=== PATIENT | male | born 1950 | race Caucasian/White ===

== ENCOUNTER 2016-08-24 21:47 | Emergency (ER) | payer OTHER ==
[~2016-08-24 21:47] MED LIST: ACYCLOVIR200 M1 PO; ACYCLOVIR200 MG PO; ALEVE220 MG PO; AMLODIPINE BESY1 CA5 PO; ANUSOL-HC25 M1 RC; ATIVAN 0.5MG T0.5 MG PO; ATIVAN1 MG PO; CARISOPRODOL350 MG PO; CARVEDILOL12.5 M1 PO; CYTOXAN PO; Compazine PO; DECADRON2 MG PO; GENTAMICIN SULF30 GM TOP; LOPRESSOR50 MG PO; METOPROLOL SUC100 MG PO; NEPHRO-VITE RX1 EACH PO; NEPHROCAPS1 TAB PO; NORVASC 10MG10 MG PO; NORVASC 5MG TAB5 MG PO; OXYCODONE5 MG PO; OXYCONTIN20 M1 PO; PROCRIT20000 U/ML IV; RENVELA800 M1 PO; RENVELA800 MG PO; TRAMADOL HCL50 MG PO; VELCADE3.5 MG SC; ZETIA10 MG PO; ZITHROMAX 500M500 MG PO; Zetia PO
--- NOTE | 2016-08-24 22:10 | ED NECK/BACK PAIN COMPLAINT ---
History of Present Illness General Chief Complaint: Lower Extremity Problems Stated Complaint: PT IS HAVING REALLY BAD BACK PAIN Source: patient, family, old records Exam Limitations: no limitations Vital Signs & Intake/Output Vital Signs & Intake/Output Vital Signs Date Time Temp Pulse Resp B/P Pulse O2 O2 Flow FiO2 Ox Delivery Rate 08/24 2154 98.7 104 22 140/97 97 Room Air ED Intake and Output 08/25 0000 08/24 1200 Intake Total 0 Output Total Balance 0 Intake, Oral 0 Patient 155 lb Weight Allergies Coded Allergies: NO KNOWN ALLERGIES (06/29/16) Triage Note: PER PT SEVERE BACK PAIN SINCE 4 PM. PT HAS MULTIPLE MYELOMA AND COULD BE BECAUSE OF THAT. Triage Nurses Notes Reviewed? yes HPI: This is a 65-year-old male with history of multiple myeloma who presents to the ER from home with his for chief complaint of severe low back pain radiating to his left flank. History of previous back pain from multiple myeloma. Today he took his OxyContin 20 mg without any relief. No fever or chills. No nausea vomiting or diarrhea. Patient is on peritoneal dialysis for the last 2 years and does not make any urine. He denies any recent trauma. 4 weeks ago he hit his right knee. At that time he had x-rays which were negative. No weakness or numbness in the lower extremities. (GALI KRISHNAMURTHY,EMMA) Reconcile Medications Acyclovir 200 MG CAPSULE 1 CAP PO DAILY SHINGLE PREVENTION (Reported) Carvedilol 12.5 MG TABLET 1 TAB PO DAILY BP (Reported) Cyclobenzaprine HCl 10 MG TABLET 1 TAB PO TID PRN MUSCLE SPASM Oxycodone HCl (Oxycontin) 20 MG TAB.ER.12H 1 TAB PO BID PAIN (Reported) Oxycodone HCl/Acetaminophen (Percocet 10-325 MG Tablet) 10 MG-325 MG TABLET 1 TAB PO 4 TIMES/DAY PRN pain twenty... [id number] Sevelamer Carbonate (Renvela) 800 MG TABLET 4 TAB PO WM KIDNEYS (Reported) (CODY KRISHNAMURTHY,FIONA Medina) Past History Travel History Traveled to [place] past 21 day No Medical History Any Pertinent Medical History? see below for history Neurological: NONE EENT: NONE Cardiovascular: hypertension Respiratory: NONE Gastrointestinal: APPENDECTOMY Renal: END-STAGE RENAL DISEASE ON PERITONEAL Musculoskeletal: chronic back pain, osteoporosis Psychiatric: NONE Endocrine: NONE Blood Disorders: MULTIPLE MYELOMA Cancer(s): MULTIPLE MYELOMA History of MRSA: No History of VRE: No History of CDIFF: No Surgical History Surgical History: non-contributory Psychosocial History Who do you live with Family Services at Home None What is your primary language Gabonese Tobacco Use: Never used Family History Family History, If Any: Relation not specified for: FH: colon cancer (GALI KRISHNAMURTHY,EMMA) Family History Hx Contributory? No (CODY KRISHNAMURTHY,FIONA Medina) Review of Systems Review of Systems Constitutional: Reports: no symptoms, see HPI, chills, diaphoresis, fever, malaise, weakness, unexplained weight loss. Eyes: Reports: no symptoms. Ears, Nose, Throat, Mouth: Reports: no symptoms. Respiratory: Reports: no symptoms. Cardiovascular: Reports: no symptoms. Gastrointestinal/Abdominal: Reports: no symptoms. Musculoskeletal: Reports: no symptoms. Skin: Reports: no symptoms. Neurological/Psychological: Reports: no symptoms. All Other Systems: Reviewed and Negative (CODY KRISHNAMURTHY,FIONA Medina) Physical Exam Physical Exam General Appearance: well developed/nourished, mild distress Head: atraumatic Eyes: Bilateral: PERRL, EOMI. Ears, Nose, Throat, Mouth: hearing grossly normal Neck: normal inspection, supple, full range of motion Respiratory: normal breath sounds Cardiovascular: regular rate/rhythm Gastrointestinal: normal bowel sounds, soft, non-tender, no organomegaly Back: normal inspection, normal range of motion, no vertebral tenderness Extremities: non-tender, normal range of motion Comments: normal strength and sensation in lower extremities. (CODY KRISHNAMURTHY,FIONA Medina) Progress Plan of Care: Orders Procedure Date/time Status COMPREHENSIVE METABOLIC PANEL 08/24 2220 Complete CBC WITHOUT DIFFERENTIAL 08/24 2220 Complete Laboratory Tests 08/24/16 2240: Anion Gap 13, Estimated GFR 4 L, BUN/Creatinine Ratio 4.1 L, Glucose 88, Calcium 8.8, Total Bilirubin 0.5, AST 11 L, ALT 22, Alkaline Phosphatase 76, Total Protein 7.2, Albumin 3.4 L, Globulin 3.8, Albumin/Globulin Ratio 0.9 L, CBC w Diff NO MAN DIFF REQ, RBC 2.54 L, MCV 98.4 H, MCH 32.5 H, RDW 16.8 H, MPV 7.4, Gran % 73.7, Lymphocytes % 16.0 L, Monocytes % 9.9 H, Eosinophils % 0.2, Basophils % 0.2, Absolute Granulocytes 3.3, Absolute Lymphocytes 0.7 L, Absolute Monocytes 0.4, Absolute Eosinophils 0, Absolute Basophils 0, PUBS MCHC 33.0 Hand-Off Endorsed To: SILVA LEONARD MD Endorsed Time: 2309 Pending: labs, other (REEVALUATION) (EMMA TALBERT MD) Differential Diagnosis: back pain, multiple myeloma vs other. (CODY KRISHNAMURTHY,FIONA Medina) Departure Departure Condition: Stable Clinical Impression Primary Impression: Back pain Secondary Impressions: Flank pain Referrals: Eugene ALVARADO MD (PCP/Family) Departure Forms: Customer Survey General Discharge Information PA/DIVER PUMPER Co-Sign Statement Statement: ED Attending supervision documentation- [] I saw and evaluated the patient. I have also reviewed all the pertinent lab results and diagnostic results. I agree with the findings and the plan of care as documented in the PA's/DIVER PUMPER's documentation. [X] have reviewed the ED Record and agree with the PA's/DIVER PUMPER's documentation. [] Additions or exceptions (if any) to the PAs/DIVER PUMPER's note and plan are summarized below: [] (GALI KRISHNAMURTHY,EMMA) Departure Disposition: HOME OR SELF CARE Prescriptions: Current Visit Scripts Oxycodone HCl/Acetaminophen (Percocet 10-325 MG Tablet) 1 TAB PO 4 TIMES/DAY PRN pain #20 TAB twenty... [id number] Cyclobenzaprine HCl 1 TAB PO TID PRN MUSCLE SPASM #30 TAB Ref 1 Comments 08/25/16, 0:35AM.... Pt is pain free. Benign exam without tenderness to my evaluation. He would like to go home and follow up with dr. auguste. We discussed this at great length. I gave rx for percocet. He will return if his symptoms recur. (CODY KRISHNAMURTHY,FIONA Medina)
[2016-08-24 22:53] LABS: ABSOLUTE BASOPHIL COUNT 0 /CUMM (0.0-0.2); ABSOLUTE EOSINOPHIL COUNT 0 /CUMM (0.0-0.7); ABSOLUTE GRANULOCYTE CT 3.3 /CUMM (1.4-6.5); ABSOLUTE LYMPH COUNT 0.7 /CUMM (1.2-3.4); ABSOLUTE MONOCYTE COUNT 0.4 /CUMM (0.10-0.60); BASOPHIL % 0.2 % (0.0-2.0); EOSINOPHIL % 0.2 % (0-5); GRANULOCYTE % 73.7 % (42.2-75.2); MEAN CORPUSCULAR HGB 32.5 PG (27.0-31.0); MEAN CORPUSCULAR VOLUME 98.4 FL (80.0-94.0); MEAN PLATELET VOLUME 7.4 FL (7.4-10.4); PLATELET COUNT 177 /CUMM (130-400); RBC DISTRIBUTION WIDTH 16.8 % (11.5-14.5); RED BLOOD CELL CT 2.54 /CUMM (4.70-6.10); WHITE BLOOD CELL COUNT 4.5 /CUMM (4.8-10.8)
[2016-08-25] MEDS ORDERED: PERCOCET 10-321 EACH PO (00:25)
[2016-08-25] MEDS ORDERED: CYCLOBENZAPRINE10 M1 PO (00:25)
[2016-08-25 00:47] VITALS: BP 140/74
== END 2016-08-25 00:56 ==
LOC: ERH 21:47
PROVIDERS: Emergency Medicine
DX: M54.5 Low back pain (principal); R10.9 Unspecified abdominal pain
CPT/HCPCS: 96374; 96375; J2405; J3360

== ENCOUNTER 2016-09-01 15:49 | Inpatient (IN) | payer OTHER ==
[~2016-09-01] VITALS: Ht 172.7 cm; Wt 70.3 kg
[~2016-09-01 15:49] MED LIST changes: +CYCLOBENZAPRINE10 M1 PO; +PERCOCET 10-321 EACH PO
--- NOTE | 2016-09-01 15:54 | NUR ---
PT SENT IN BY [facility] FOR IRREGULAR HEART BEAT. PT WAS THERE FOR MONTHLY VISIT AND THEY LISTENED TO HIS HEART WITH A STETHASCOPE. PT DENIES CHEST PAIN OR SOB. PT STATES HE DOES HAVE CHRONIC BACK PAIN.
--- NOTE | 2016-09-01 15:57 | NUR ---
PT BROUGHT BACK TO ROOM AFTER EKG
--- NOTE | 2016-09-01 16:08 | ED GENERAL ADULT ---
History of Present Illness General Chief Complaint: General Adult Stated Complaint: IRREGULAR HEART BEAT Source: patient, Exam Limitations: no limitations Allergies Coded Allergies: NO KNOWN ALLERGIES (06/29/16) Reconcile Medications Acyclovir 200 MG CAPSULE 1 CAP PO DAILY SHINGLE PREVENTION (Reported) Carvedilol 12.5 MG TABLET 1 TAB PO DAILY BP (Reported) Lactulose 10 GRAM/15 ML SOLUTION 30 ML PO PRN CONSTIPATION (Reported) Oxycodone HCl 10 MG TABLET 1-2 TAB PO Q4-6H PRN PAIN (Reported) Sevelamer Carbonate (Renvela) 800 MG TABLET 4 TAB PO WM KIDNEYS (Reported) Vit B Cmplx 3/FA/Vit C/Biotin (Nephro-Nola Rx Tablet) 1 MG-60 MG-300 MCG TABLET 1 TAB PO DAILY SUPPLEMENT (Reported) Triage Note: PT SENT IN BY [facility] FOR IRREGULAR HEART BEAT. PT WAS THERE FOR MONTHLY VISIT AND THEY LISTENED TO HIS HEART WITH A STETHASCOPE. PT DENIES CHEST PAIN OR SOB. PT STATES HE DOES HAVE CHRONIC BACK PAIN. Triage Nurses Notes Reviewed? yes HPI: 65 yo M PMH Multiple Myeloma, ESRD (on peritoneal dialysis) presenting with tachycardia. Patient went to Dr. Chaudhry's (director of procurement) office this afternoon for follow-up, found to be tachycardic with rates 140-150s, patient otherwise asymptomatic, sent to ED for evaluation. ROS (+) for mild dyspnea on exertion for the past several days, denies fevers, chest pain, palpitations, LE swelling/ pain, dizziness or neurologic Sx. No Hx of tachyarrhythmias. (KIMBERLY KRISHNAMURTHY,SURINDER) Vital Signs & Intake/Output Vital Signs & Intake/Output Vital Signs Date Time Temp Pulse Resp B/P Pulse O2 O2 Flow FiO2 Ox Delivery Rate 09/01 1802 104 16 101/76 95 Room Air 09/01 1731 98 104/70 09/01 1629 Room Air 09/01 1555 98.3 72 16 103/64 94 Past History Travel History Traveled to [place] past 21 day No Medical History Any Pertinent Medical History? see below for history Neurological: NONE EENT: NONE Cardiovascular: hypertension Respiratory: NONE Gastrointestinal: APPENDECTOMY Renal: END-STAGE RENAL DISEASE ON PERITONEAL Musculoskeletal: chronic back pain, osteoporosis Psychiatric: NONE Endocrine: NONE Blood Disorders: MULTIPLE MYELOMA Cancer(s): MULTIPLE MYELOMA History of MRSA: No History of VRE: No History of CDIFF: No Surgical History Surgical History: non-contributory Psychosocial History Who do you live with Family Services at Home None What is your primary language Maori Tobacco Use: Never used ETOH Use: denies use Illicit Drug Use: denies illicit drug use Family History Family History, If Any: Relation not specified for: FH: colon cancer Hx Contributory? No (SURINDER HARRIS MD) Review of Systems Review of Systems Constitutional: Reports: no symptoms. EENTM: Reports: no symptoms. Respiratory: Reports: short of breath. Cardiovascular: Reports: no symptoms. GI: Reports: no symptoms. Genitourinary: Reports: no symptoms. Musculoskeletal: Reports: no symptoms. Skin: Reports: no symptoms. Neurological/Psychological: Reports: no symptoms. Hematologic/Endocrine: Reports: no symptoms. Immunologic/Allergic: Reports: no symptoms. All Other Systems: Reviewed and Negative (SURINDER HARRIS MD) Physical Exam Physical Exam General Appearance: well developed/nourished, no apparent distress, alert, awake Head: atraumatic Eyes: Bilateral: normal appearance. Ears, Nose, Throat: normal ENT inspection Neck: supple, full range of motion Respiratory: normal breath sounds Cardiovascular: edema, normal peripheral pulses, tachycardia Peripheral Pulses: 2+ radial (R), 2+ radial (L), 2+ dorsalis pedis (R), 2+ dorsalis pedis (L) Gastrointestinal: soft, non-tender, PD catheter in mid-upper abdomen Back: normal inspection Extremities: normal inspection, normal capillary refill, normal range of motion Neurologic/Psych: awake, alert, oriented x 3 Skin: intact Comments: Pulmonary: Clear to ascultation with good air movement bilaterally Cardiovascular: Tachycardic, regular, 2+ distal pulses Abdomen: Soft, non-TTP throughout, PD catheter in epigastrum, insertion site clean, dry, non-erythematous Extremities: No swelling, edema, TTP Core Measures ACS in differential dx? No CVA/TIA Diagnosis: No Severe Sepsis Present: No Septic Shock Present: No (SURINDER HARRIS MD) Progress Differential Diagnoses I considered the following diagnoses in my evaluation of the patient: [Atrial Fivrillario] Initial ED EKG: Narrow complex tachycardia (SURINDER HARRIS MD) Plan of Care: Orders Procedure Date/time Status Admit to inpatient 09/01 1941 Active Patient Data 09/01 194 Active TROPONIN LEVEL 09/01 162 Complete PARTIAL THROMBOPLASTIN TIME 09/01 162 Complete PROTHROMBIN TIME 09/01 1620 Complete MAGNESIUM 09/01 162 Complete COMPREHENSIVE METABOLIC PANEL 09/01 162 Complete CBC WITHOUT DIFFERENTIAL 09/01 162 Complete EKG 09/01 161 Active EKG 09/01 1551 Active Laboratory Tests 09/01/16 1621: Anion Gap 15, Estimated GFR 4 L, BUN/Creatinine Ratio 3.8 L, Glucose 86, Calcium 9.1, Magnesium 1.3 L, Total Bilirubin 0.6, AST 18, ALT 23, Alkaline Phosphatase 70, Troponin I 0.07, Total Protein 7.3, Albumin 3.5, Globulin 3.8, Albumin/Globulin Ratio 0.9 L, PT 11.8, INR 1.13, APTT 27, CBC w Diff NO MAN DIFF REQ, RBC 2.87 L, MCV 98.4 H, MCH 32.8 H, RDW 16.9 H, MPV 7.3 L, Gran % 81.1 H, Lymphocytes % 9.8 L, Monocytes % 8.7, Eosinophils % 0.1, Basophils % 0.3, Absolute Granulocytes 4.8, Absolute Lymphocytes 0.6 L, Absolute Monocytes 0.5, Absolute Eosinophils 0, Absolute Basophils 0, PUBS MCHC 33.4 Physician MDM: 65 yo M PMH MM, ESRD presenting with tachyarrhymia. HR 100s during exam, regular, SBP low 100s, asymptomatic, remainder of exam as above. DDx: A-Fib with RVR. Atrial flutter, SVT. Initial ECG wtih narrow complex tachycardia, appears regular, no visible p-waves. Tachycardia broke prior to MD stephenson in ED. Troponin 0.07. CBC with anemia, expected given MM. BMP with hypokalemia to 3.4, low Mg at 1.3, expected Cr elevation at 12.0. Spoke with Dr. Chaudhry (nephrology), discussed case, OK to replete K+ and Mg+ despite ESRD. Mg IV and K PO given. Patient had recurrent tachyarrhythmia in ED, irregular on monitor, rates 120-130s, spontaneous conversion without treatment. Spoke with seasonal clerk Cardiology for , will evaluate patient for rate control medications during admission. Admit to hospitalist for monitoring and further evaluation. The plan of care was discussed with the patient and his who expressed agreement and understanding. D/W Dr. Waters. (SURINDER HARRIS MD) Departure Departure Disposition: STILL A PATIENT Condition: Stable Clinical Impression Primary Impression: Tachyarrhythmia Referrals: Eugene ALVARADO MD (PCP/Family) Departure Forms: Customer Survey General Discharge Information Admission Note Spoke With: YULISA DELGADILLO MD Documentation of Exam: Documentation of any treatments & extenuating circumstances including Concerns Regarding Discharge (functional status, medication knowledge or non-compliance, living conditions, etc.) that warrant an admission rather than observation: [ High probability of re-conversion to life-threatening tachydysrhythmia potentially leading to syncope, hypotension, sudden , cardiovascular collapse, hypokalemia, hypomagnesemia] the patient is unable to be discharged home due to inability to find safe and effective antiarrhythmic regimen due to his end-stage renal disease and borderline hypotensive blood pressures, the patient will be discharged without effective antiarrhythmic regimen he has a likelihood of reconverted to a tachydysrhythmia that could lead to hypotension and the patient will likely return in worse clinical condition without appropriate antiarrhythmic management. In addition the exertion of compliance with outpatient treatment could potentially provoke a tachydysrhythmia causing the patient to faint, experienced chest pain and hypotension. I now feel the patient requires hospitalization with continuous cardiac monitoring given his high risk of dysrhythmia. In addition cardiology and nephrology consultations should be obtained. The patient's treatment will be complicated by the fact that most rate controlling cardiac medications are cleared renally placing him at very high risk of medication side effects and overdose. Given this I feel the patient is a poor candidate for outpatient management at this time. I feel he will require a multiple day hospitalization. (SURINDER HARRIS MD) Resident Co-Sign Statement Statement: ED Attending supervision documentation- [x] I saw and evaluated the patient. I have also reviewed all the pertinent lab results and diagnostic results. I agree with the findings and the plan of care as documented in the Resident's documentation. [] I have reviewed the ED Record and agree with the Resident's documentation. [] Additions or exceptions (if any) to the Resident's note and plan are summarized below: [] (IAIN KRISHNAMURTHY,CELESTINO D) Critical Care Note Critical Care Note Critical Care Time: non-applicable (KIMBERLY KRISHNAMURTHY,SURINDER)
[2016-09-01 16:29] LABS: ABSOLUTE BASOPHIL COUNT 0 /CUMM (0.0-0.2); ABSOLUTE EOSINOPHIL COUNT 0 /CUMM (0.0-0.7); ABSOLUTE GRANULOCYTE CT 4.8 /CUMM (1.4-6.5); ABSOLUTE LYMPH COUNT 0.6 /CUMM (1.2-3.4); ABSOLUTE MONOCYTE COUNT 0.5 /CUMM (0.10-0.60); BASOPHIL % 0.3 % (0.0-2.0); EOSINOPHIL % 0.1 % (0-5); GRANULOCYTE % 81.1 % (42.2-75.2); HEMATOCRIT 28.2 % (42-52); MEAN CORPUSCULAR HGB 32.8 PG (27.0-31.0); MEAN CORPUSCULAR HGB CONC 33.4 G/DL (33.0-37.0); MEAN CORPUSCULAR VOLUME 98.4 FL (80.0-94.0); MEAN PLATELET VOLUME 7.3 FL (7.4-10.4); PLATELET COUNT 160 /CUMM (130-400); RBC DISTRIBUTION WIDTH 16.9 % (11.5-14.5); RED BLOOD CELL CT 2.87 /CUMM (4.70-6.10); WHITE BLOOD CELL COUNT 5.9 /CUMM (4.8-10.8)
[2016-09-01 16:36] LABS: PT 11.8 SEC (9.4-12.5); PTT 27 SEC (25-37)
--- NOTE | 2016-09-01 16:41 | NUR ---
UPON ARRIVAL TO 19, HR 130'S-150'S AFIB ON BUILDING DISMANTLER. APPROXIMATELY 5 MINUTES AFTER ARRIVAL TO ROOM HR DECREASED TO 100'S, SINUS RHYTHM
--- NOTE | 2016-09-01 17:03 | NUR ---
PT IN RAPID AFIB HR 150'S-160'S. RESIDENT NOTIFIED
[2016-09-01] MEDS ORDERED: LACTULOSE10 GM/153 PO (19:49)
[2016-09-01] MEDS ORDERED: OXYCODONE HCL10 M2 PO (19:49)
[2016-09-01] MEDS ORDERED: NEPHRO-VITE RX1 EACH PO (19:54)
[2016-09-01] MEDS ORDERED: PROCHLORPERAZIN10 MG PO (20:28)
[2016-09-01] MEDS ORDERED: OXYCODONE HCL E20 MG PO (20:29)
[2016-09-01] MEDS ORDERED: GENTAMICIN SULF30 GM TOP (20:30)
--- NOTE | 2016-09-01 20:39 | NUR ---
BED ASSIGNMENT [id number]
--- NOTE | 2016-09-01 21:06 | NUR ---
REPORT GIVEN, WILL CALL WHEN ROOM IS CLEAN
--- NOTE | 2016-09-01 21:14 | History & Physical ---
MERLINE KRISHNAMURTHY,[facility] 09/01/162113: General Information and HPI MD Statement: I have seen and personally examined JUAN A DU and documented this H&P. The patient is a 65 year old M who presented with a patient stated chief complaint of [I was sent in by my kidney doctor for an elevated heart rate]. Source of Information: patient, family, old records Exam Limitations: no limitations History of Present Illness: This is a 65-year-old gentleman with a past history significant for multiple myeloma diagnosed 2 years ago, currently undergoing oral chemotherapy every other week, chronic kidney disease on peritoneal dialysis for the last couple years likely secondary to multiple myeloma, hypertension, hyperlipidemia presented to the emergency room after being seen at [facility] where he was noted to have an elevated heart rate and was subsequently sent to the emergency room. Patient states that he goes to [facility] once a week for blood work and today while doing their initial evaluation and vital signs they noticed that his heart rate was in the 140s, they subsequently sent him to the emergency room for evaluation. However patient denies any chest pain, shortness of breath, nausea, vomiting, diarrhea, fevers, chills, recent illnesses or sick contacts. He states that if it were not for the dialysis nurse requesting him to come to the emergency room, he would not have been here and feels good otherwise. While in the emergency room he was tachycardic into the 150s, it self resolved, currently his heart rate is stable in the mid 90s. Patient did complain of some upper back pain which has been going on for the past few weeks. States that he could not sit still through the course of the MRI and hence the imaging quality for the MRI that he did receive was inconclusive to show any acute fractures or metastases. He does admit to recent hemorrhoid surgery in June with Dr. Sow. Allergies/Medications Allergies: Coded Allergies: NO KNOWN ALLERGIES (06/29/16) Home Med list Acyclovir 200 MG CAPSULE 1 CAP PO DAILY SHINGLE PREVENTION (Reported) Carvedilol 12.5 MG TABLET 1 TAB PO DAILY BP (Reported) Gentamicin Sulfate 0.1 % CREAM..G. 1 MARIO TOP DAILY PERITONEAL SITE (Reported) Lactulose 10 GRAM/15 ML SOLUTION 30 ML PO PRN CONSTIPATION (Reported) Oxycodone HCl 10 MG TABLET 1-2 TAB PO Q4-6H PRN PAIN (Reported) Oxycodone HCl (Oxycodone HCl ER) 20 MG TAB.ER.12H 1 TAB PO BID PAIN (Reported ) Prochlorperazine Maleate 10 MG TABLET 1 TAB PO Q6 PRN N/V (Reported) Sevelamer Carbonate (Renvela) 800 MG TABLET 4 TAB PO WM KIDNEYS (Reported) Vit B Cmplx 3/FA/Vit C/Biotin (Nephro-Nola Rx Tablet) 1 MG-60 MG-300 MCG TABLET 1 TAB PO DAILY SUPPLEMENT (Reported) Past History Travel History Traveled to [place] past 21 day No Medical History Neurological: NONE EENT: NONE Cardiovascular: hypertension Respiratory: NONE Gastrointestinal: APPENDECTOMY Renal: END-STAGE RENAL DISEASE ON PERITONEAL Musculoskeletal: chronic back pain, osteoporosis Psychiatric: NONE Endocrine: NONE Blood Disorders: MULTIPLE MYELOMA Cancer(s): MULTIPLE MYELOMA History of MRSA: No History of VRE: No History of CDIFF: No Surgical History Surgical History: non-contributory ECHO Results (as available) Date of last Echo 10/29/14 EF% 65 Past Family/Social History Family History Relations & Conditions if any Relation not specified for: FH: colon cancer Psychosocial History Services at Home: None ETOH Use: denies use Illicit Drug Use: denies illicit drug use Review of Systems Review of Systems Constitutional: Reports: see HPI. Exam & Diagnostic Data Last 24 Hrs of Vital Signs/I&O Vital Signs Date Time Temp Pulse Resp B/P Pulse O2 O2 Flow FiO2 Ox Delivery Rate 09/01 1802 104 16 101/76 95 Room Air 09/01 1731 98 104/70 09/01 1629 Room Air 09/01 1555 98.3 72 16 103/64 94 Intake & Output 09/01 1600 09/01 0800 09/01 0000 Intake Total Output Total Balance Patient 155 lb Weight Physical Exam General Appearance Alert, Oriented X3, Cooperative Skin No Rashes, No Breakdown, No Significant Lesion HEENT Atraumatic, PERRLA, EOMI Cardiovascular Regular Rate, Normal S1, Normal S2, No Murmurs Lungs Clear to Auscultation, Normal Air Movement Abdomen Normal Bowel Sounds, Soft, No Tenderness, peritoneal dialysis catheter in place, clean dressing, no errythema or drainage Neurological Normal Gait, Normal Speech, Strength at 5/5 X4 Ext, Normal Tone, Sensation Intact, Cranial Nerves 3-12 NL Extremities No Clubbing, No Cyanosis, No Edema Diagnostic Data EKG Results Rate 152, TX 128, QRS 78, QTC 496 Sinus tachycardia Assessment/Plan Assessment: Assessment- 1. Tachycardia without any chest pain, likely secondary to electrolyte imbalance 2. Stage V kidney disease, creatinine 12, on peritoneal dialysis 3. Hypokalemia, 3.4 4. Hypomagnesemia, 1.3 5. Hyponatremia, 135, possibly secondary to decreased by mouth intake 6. Active history of multiple myeloma, currently undergoing chemotherapy orally 7. Hypertension 8. Chronic anemia, most likely secondary to chronic kidney disease Plan- Admit to telemetry Vitals per protocol Trend troponin and EKG Echocardiogram Replete electrolytes Cardiology and nephrology consult Will notify heme/ onc as courtesy Will likely require dialysis tonight Continue all home meds Renal diet DVT prophylaxis with subcutaneous heparin Pain pathway Full code As Ranked By This Provider Problem List: 1. Tachyarrhythmia 2. Back pain 3. Chronic anemia 4. Internal and external bleeding hemorrhoids 5. CKD (chronic kidney disease) requiring chronic dialysis Core Measures/Miscellaneous Acute Coronary Syndrome ACS Diagnosis: No Cerebrovascular Accident CVA/TIA Diagnosis: No Congestive Heart Failure CHF Diagnosis: No Venous Thromboembolism VTE Risk Factors: Age > 40 VTE Prophylaxis Ordered Inpt: Pharm- Heparin No Mech VTE prophylaxis d/t: No contraindications No VTE Pharm Prophylaxis d/t: No contraindications VTE Diagnosis: No VTE Type: NONE VTE Confirmed by (Test): NONE Severe Sepsis Severe Sepsis Present: No Septic Shock Septic Shock Present: No Miscellaneous Documentation Attending Case Discussed With: YULISA DELGADILLO MD Primary Care Physician: Eugene ALVARADO MD Patient sees these Specialists SHARON GREER [facility]USSBAUM Level of Patient Care: Telemetry Resident Review Statement Resident Statement: examined this patient, discussed with education intern YULISA DELGADILLO 09/02/16 0338: Attending MD Review Statement Attending Statement Attending MD Statement: examined this patient, discuss w/resident/PA/[employer], agreed w/resident/PA/[employer], discussed with family, reviewed EMR data (avail), reviewed images, amended to note Attending Assessment/Plan: CC : Sent for high heart rate PMH: ESRD on PD, myeloma on chemotherapy, HTN, HLD Patient went to [facility] this afternoon for routine follow-up. He was found to be tachycardic in 140-150s, so was sent to ER for evaluation. Patient was asymptomatic during this episode, patient endorses mild AMANDA for the past several days, but patient has been sedentary most of the time because of chronic back pain. He Denies fevers, chills, chest pain, palpitations, LE swelling/pain, dizziness or weakness in any extremity. Patient did not have any such symptoms in the past. He had increased heart enzymes in his previous hospitalization and followed up with after discharge and was cleared by him. Vitals: Maximum documented heart rate in ER is 100, afebrile, HR, BP, RR unremarkable, saturating well on room air. On examination: Thin built, a O 3, anxious, no apparent distress. No JVD, no lymphadenopathy, neck supple, mucosa moist. CVS: S1-S2, RRR. RS: Clear to auscultate bilaterally. Abdomen: Soft, NT, ND, bowel sounds present. No focal neurological deficit. Trace edema bilateral lower extremity. Labs: Hemoglobin 9.4, potassium 3.4, creatinine 12.0, magnesium 1.3, INR 1.13. Initial EKG showed supraventricular tachycardia, repeat EKG normal sinus rhythm A and P #1 narrow complex tachycardia regular: Self resolved even before treatment repeat EKG sinus tachycardia. Admit for telemetry monitoring, currently EKG and cardiac enzymes. Patient's blood pressure is low normal range to increase his beta alfred at this point, await cardiology opinion. Patient is mostly sedentary and history of myeloma, VQ scan in a.m. to rule out pulmonary embolism. Magnesium and potassium on lower side, replaced in ER. #2 ESRD on PD: Food Stylist was informed from ER, resume his dialysis tonight. #3 history of multiple myeloma: Informed oncologist. #4 resume all his home medications #5 heparin for DVT prophylaxis
--- NOTE | 2016-09-01 22:13 | NUR ---
ROOM CLEANED, TRANSPORT BOOKED
[2016-09-01 23:37] VITALS: BP 98/80
--- NOTE | 2016-09-02 00:47 | NUR ---
PT ADMITTED FROM ER VIA STRETCHER. OREINTED TO ROOM CALL TIMMONS AND STAFF. ALERT AND OREINTED X 3. RA, LUNGS CLEAR. SKIN CDI. PT RECEIVES PERITONEAL DIALYSIS AT HOME DURING THE EVENING. DR. PISANO CONTACTED BY MD FUENTES, WILL COME SEE PT TOMM. WILL CONTINUE TO MONITOR PT
--- NOTE | 2016-09-02 03:40 | Admission Certification ---
Admission Certification Certification Statement - As attending physician, I certify that at the time of - admission, based on clinical presentation, severity of - symptoms, need for further diagnostic testing and - therapeutic interventions, and risk of adverse outcomes - without in-hospital treatment, in my clinical assessment, - this patient requires an acute hospital stay for a minimum - of two nights or longer. I have also considered psychsocial - factors such as support system, advanced age, financial - issues, cognitive issues, and failed out-patient treatments, - past re-admission history, safety of patient, and lack of - compliance as applicable. Specific rationale supporting this admission is: Supraventricular tachycardia
[2016-09-02 08:02] VITALS: BP 110/78
[2016-09-02 12:17] VITALS: BP 100/68
--- NOTE | 2016-09-02 12:35 | Cons- Cardiology ---
General Information and HPI Consulting Request Date of Consult: 09/02/16 Requested By: YULISA DELGADILLO MD Reason for Consult: tachycardia Source of Information: patient, family, old records History of Present Illness: This is a very pleasant 65 y/o male with multiple myelom (follows with Dr. Duncan ), ESRD on peritoneal dialysis, ?mild , HLD, and previous hypertension who was sent from dialysis when he was noted to have an elevated heart rate to 150 bpm. He denies any associated chest pain or palpitations. He does note some mild dyspnea in recent weeks which is not rapidly progressing. No cough or fever reported. No PND. No visual changes, focal wekaness, syncope, or increasing edema. He did have some mild nausea. No bleeding. No falls. The tachycardia was captured by ECG in the ER and then resolved. On my interview with him today he feels quite well. He last saw me in the office about 1 year ago. Allergies/Medications Allergies: Coded Allergies: NO KNOWN ALLERGIES (06/29/16) Home Med List: Acyclovir 200 MG CAPSULE 1 CAP PO DAILY SHINGLE PREVENTION (Reported) Carvedilol 12.5 MG TABLET 1 TAB PO DAILY BP (Reported) Carvedilol 3.125 MG TABLET 1 TAB PO DAILY BLOOD PRESSURE Gentamicin Sulfate 0.1 % CREAM..G. 1 MARIO TOP DAILY PERITONEAL SITE (Reported) Lactulose 10 GRAM/15 ML SOLUTION 30 ML PO PRN CONSTIPATION (Reported) Oxycodone HCl 10 MG TABLET 1-2 TAB PO Q4-6H PRN PAIN (Reported) Oxycodone HCl (Oxycodone HCl ER) 20 MG TAB.ER.12H 1 TAB PO BID PAIN (Reported ) Prochlorperazine Maleate 10 MG TABLET 1 TAB PO Q6 PRN N/V (Reported) Sevelamer Carbonate (Renvela) 800 MG TABLET 4 TAB PO WM KIDNEYS (Reported) Vit B Cmplx 3/FA/Vit C/Biotin (Nephro-Nola Rx Tablet) 1 MG-60 MG-300 MCG TABLET 1 TAB PO DAILY SUPPLEMENT (Reported) Current Medications: Current Medications Sig/Christie Start time Last Medication Dose Route Stop Time Status Admin Acetaminophen 650 MG Q6P PRN 09/01 2130 AC PO Carvedilol 12.5 MG DAILY 09/02 1000 AC 09/02 PO 1217 Heparin Sodium 5,000 UNIT Q8 09/01 220 AC 09/02 (Porcine) SC 0456 Magnesium Sulfate 1 GM Q2H 09/01 1830 DC 09/01 Dextrose/Water 100 ML IV 09/01 2229 2055 Oxycodone HCl 20 MG Q4 PRN 09/02 0007 AC 09/02 PO 0832 Oxycodone HCl 0 .STK-MED ONE 09/01 2207 DC PO Oxycodone HCl 20 MG BID 09/01 2200 AC 09/02 PO 1213 Oxycodone HCl 10 MG Q6P PRN 09/01 2145 DC PO Oxycodone HCl 10 MG ONCE ONE 09/01 1830 DC 09/01 PO 09/01 1831 1825 Oxycodone HCl 0 .STK-MED ONE 09/01 1823 DC PO Potassium Chloride 20 MEQ ONCE ONE 09/02 0845 DC 09/02 PO 09/02 0846 1214 Potassium Chloride 0 .STK-MED ONE 09/01 1848 DC PO Potassium Chloride 20 MEQ ONCE ONE 09/01 1830 DC 09/01 PO 09/01 1831 1855 Sevelamer Carbonate 3,200 MG WM 09/02 0800 AC 09/02 PO 0833 Trimethobenzamide HCl 200 MG ONCE ONE 09/02 1130 DC 09/02 IM 09/02 1131 1221 Review of Systems Review of Systems: Review of systems as per HPI. The remainder of a 10 point review of systems was reviewed and was otherwise negative. Past History Travel History Traveled to [place] past 21 day No Medical History Neurological: NONE EENT: NONE Cardiovascular: hypertension Respiratory: NONE Gastrointestinal: APPENDECTOMY Renal: END-STAGE RENAL DISEASE ON PERITONEAL Musculoskeletal: chronic back pain, osteoporosis Psychiatric: NONE Endocrine: NONE Blood Disorders: MULTIPLE MYELOMA Cancer(s): MULTIPLE MYELOMA Surgical History Surgical History: non-contributory Family History Relations & Conditions If Any: Relation not specified for: FH: colon cancer Psychosocial History Services at Home: None Smoking Status: Never Smoked ETOH Use: denies use Illicit Drug Use: denies illicit drug use ECHO Results (as available) Date of last Echo 10/29/14 EF% 65 Exam & Diagnostic Data Vital Signs and I&O Vital Signs Date Time Temp Pulse Resp B/P Pulse O2 O2 Flow FiO2 Ox Delivery Rate 09/02 1217 85 100/68 09/02 0802 98.1 99 18 110/78 95 Room Air 09/01 2337 98.7 94 18 98/80 93 Room Air 09/01 2218 98.1 100 16 112/81 96 Room Air 09/01 2102 90 16 114/75 96 Room Air 09/01 2002 94 113/79 09/01 1902 98.1 101 16 111/81 97 Room Air 09/01 1802 104 16 101/76 95 Room Air 09/01 1731 98 104/70 09/01 1629 Room Air 09/01 1555 98.3 72 16 103/64 94 Intake & Output 09/02 1600 09/02 0800 09/02 0000 09/01 1600 09/01 0809/01 0000 Intake Total 120 0 Output Total Balance 120 0 Intake, Oral 120 0 Patient 155 lb 155 lb Weight Physical Exam: General: no apparent distress. Alert. Eyes: No obvious scleral icterus. HEENT: No jugular venous distention or abnormal jugular venous pulsations. Cardiovascular: Normal intensity S1/S2. PMI not grossly displaced. Respiratory: Lungs clear to auscultation bilaterally. Abdomen: Soft, nontender with no guarding or rebound tenderness. Musculoskeletal: No clubbing or cyanosis noted Skin: No obvious rashes or ulcerations. Neurologic: No gross focal deficits noted. Lymph: No gross lymphadenopathy. Labs/Tyler Results: Laboratory Tests 09/02 09/01 09/01 0510 2355 1621 Chemistry Sodium (137 - 145 mmol/L) 134 L 135 L Potassium (3.5 - 5.1 mmol/L) 3.5 3.4 L Chloride (98 - 107 mmol/L) 93 L 91 L Carbon Dioxide (22 - 30 mmol/L) 28 29 Anion Gap (5 - 16) 14 15 BUN (9 - 20 mg/dL) 48 H 46 H Creatinine (0.7 - 1.2 mg/dL) 13.2 *H 12.0 *H Estimated GFR (>60 ml/min) 4 L 4 L BUN/Creatinine Ratio (7 - 25 %) 3.6 L 3.8 L Glucose (65 - 99 mg/dL) 86 Calcium (8.4 - 10.2 mg/dL) 9.1 Magnesium (1.6 - 2.3 mg/dL) 2.0 1.3 L Total Bilirubin (0.2 - 1.3 mg/dL) 0.6 AST (17 - 59 U/L) 18 ALT (21 - 72 U/L) 23 Alkaline Phosphatase (< 127 U/L) 70 Troponin I (<0.11 ng/ml) 0.10 0.09 0.07 Total Protein (6.3 - 8.2 g/dL) 7.3 Albumin (3.5 - 5.0 g/dL) 3.5 Globulin (1.9 - 4.2 gm/dL) 3.8 Albumin/Globulin Ratio (1.1 - 2.2 %) 0.9 L Coagulation PT (9.4 - 12.5 SEC) 11.8 INR (0.90 - 1.17) 1.13 APTT (25 - 37 SEC) 27 Hematology CBC w Diff NO MAN DIFF REQ WBC (4.8 - 10.8 /CUMM) 5.9 RBC (4.70 - 6.10 /CUMM) 2.87 L Hgb (14.0 - 18.0 G/DL) 9.4 L Hct (42 - 52 %) 28.2 L MCV (80.0 - 94.0 FL) 98.4 H MCH (27.0 - 31.0 PG) 32.8 H RDW (11.5 - 14.5 %) 16.9 H Plt Count (130 - 400 /CUMM) 160 MPV (7.4 - 10.4 FL) 7.3 L Gran % (42.2 - 75.2 %) 81.1 H Lymphocytes % (20.5 - 51.1 %) 9.8 L Monocytes % (1.7 - 9.3 %) 8.7 Eosinophils % (0 - 5 %) 0.1 Basophils % (0.0 - 2.0 %) 0.3 Absolute Granulocytes (1.4 - 6.5 /CUMM) 4.8 Absolute Lymphocytes (1.2 - 3.4 /CUMM) 0.6 L Absolute Monocytes (0.10 - 0.60 /CUMM) 0.5 Absolute Eosinophils (0.0 - 0.7 /CUMM) 0 Absolute Basophils (0.0 - 0.2 /CUMM) 0 PUBS MCHC (33.0 - 37.0 G/DL) 33.4 Diagnostic Data EKG Results Tracing was personally reviewed and shows a narrow complex regular tachycardia at approximately 152 bpm Subsequent ECG tracing shows sinus tachycardia at 103 bpm Other Results Echo: Normal global left ventricular size, wall thickness, systolic function with no obvious regional wall motion abnormalities. Left ventricular ejection fraction is estimated at > 55 %. Normal right ventricular size and function. No aortic stenosis. No obvious pericardial effusion. Telemetry shows SR with short SVT bursts Assessment/Plan Assessment/Plan 1. SVT, unclear etiology, self limited, possibly reentrant tachycardia versus atrial flutter 2. ESRD on peritoneal dialysis 3. Myeloma 4. Hx HLD 5. Hypomagnesemia 6. Mild dyspnea The tachycardia has resolved with only short bursts on telemetry. Possible atrial flutter with 2:1 block versus AVNRT?. As BP has been running on low side recently he has been off his Coreg for a while. Would resume at 3.125 mg PO BID while monitoring his BP after discharge. Echo as above was grossly normal. Will continue to evaluate the SVT after discharge but not planning on AC for now. Likely will be a candidate for loop recorder in the future. Also planned for stress test as outpatient. I do not think he needs a V/Q as PE unlikely at this time. He appears stable for discharge and will follow-up with me in my office next week. Agustín Cosby MD [facility] Consult Acknowledgment - Thank you for your consult request.
--- NOTE | 2016-09-02 12:42 | ECHOCARDIOGRAM REPORT ---
JUAN A DU Age: 65 : 1950 Gender: M Exam Date: 09/02/2016 08:55 Exam Location: 1 [address] Ht (in): 68 Wt (lb): 155 BSA: 1.84 BP: 110 / 78 Ordering Physician: CHICHO RICK M Referring Physician: CHICHO RICK MD Technologist: Osmani Ward [facility] Room Number: [id number] Indications: ARRHYTHMIAS Rhythm: Technical Quality: FINDINGS Left Ventricle Normal global left ventricular size, wall thickness, systolic function with no obvious regional wall motion abnormalities. Left ventricular ejection fraction is estimated at > 55 %. Right Ventricle Normal right ventricular size and function. Right Atrium Normal right atrial size. Left Atrium Normal left atrial size. Mitral Valve Mild mitral annular calcification. No mitral stenosis. Trace to mild mitral regurgitation. Aortic Valve Aortic sclerosis. No aortic stenosis. Tricuspid Valve Structurally normal tricuspid valve. Trace to mild tricuspid regurgitation. Unable to estimate the right ventricular systolic pressure. Pulmonic Valve Pulmonic valve not well visualized, grossly normal. Pericardium No obvious pericardial effusion. Great Vessels Normal size aortic root. CONCLUSIONS Normal global left ventricular size, wall thickness, systolic function with no obvious regional wall motion abnormalities. Left ventricular ejection fraction is estimated at > 55 %. Normal right ventricular size and function. No aortic stenosis. No obvious pericardial effusion. Les Cosby M.D. (Electronically Signed) Final Date: 02 September 2016 12:41 MEASUREMENTS (Male / Female) Normal Values 2D ECHO LV Diastolic Diameter PLAX 3.7 cm 4.2 - 5.9 / 3.9 - 5.3 cm LV Systolic Diameter PLAX 1.7 cm 2.1 - 4.0 cm LV Fractional Shortening PLAX 54.1 % 25 - 46 % LV Ejection Fraction 2D Teich 85.6 % IVS Diastolic Thickness 1.0 cm LVPW Diastolic Thickness 0.9 cm LV Relative Wall Thickness 0.5 LVOT Diameter 2.0 cm Aortic Root Diameter 3.3 cm LA Volume 49.0 cm 18 - 58 / 22 - 52 cm Ascending Aorta Diameter 2.6 cm DOPPLER AV Peak Velocity 187.0 cm/s AV Peak Gradient 14.0 mmHg AV Mean Velocity 117.0 cm/s AV Mean Gradient 7.0 mmHg AV Velocity Time Integral 37.8 cm LVOT Peak Velocity 143.0 cm/s LVOT Peak Gradient 8.2 mmHg LVOT Mean Velocity 75.8 cm/s LVOT Mean Gradient 3.0 mmHg LVOT Velocity Time Integral 27.5 cm LVOT Stroke Volume 86.4 cm AV Area Cont Eq vti 2.3 cm AV Area Cont Eq pk 2.4 cm Mitral E Point Velocity 86.9 cm/s Mitral A Point Velocity 106.0 cm/s Mitral E to A Ratio 0.8 MV Deceleration Time 327.0 ms MR Peak Velocity 250.0 cm/s MR Peak Gradient 25.0 mmHg TR Peak Velocity 281.0 cm/s TR Peak Gradient 31.6 mmHg Right Atrial Pressure 5.0 mmHg Pulmonary Artery Systolic Pressu 36.6 mmHg Right Ventricular Systolic Press 36.6 mmHg PV Peak Velocity 138.0 cm/s PV Peak Gradient 7.6 mmHg PV Mean Velocity 83.9 cm/s PV Mean Gradient 3.0 mmHg PV Velocity Time Integral 28.0 cm LV E' Lateral Velocity 11.8 cm/s Mitral E to LV E' Lateral Ratio 7.4 LV E' Septal Velocity 9.2 cm/s Mitral E to LV E' Septal Ratio 9.5
--- NOTE | 2016-09-02 12:50 | Cons- Nephrology ---
General Information and HPI Consulting Request Date of Consult: 09/02/16 Requested By: YULISA DELGADILLO MD Reason for Consult: ESRD, on CPD Source of Information: patient, old records History of Present Illness: The patient is a 65-year-old gentleman with dialysis-dependent end-stage renal disease on cycler peritoneal dialysis at home. At his regularly scheduled outpatient dialysis visit yesterday he was found to be asymptomatically tachycardic at about 150/m. EKG has been interpreted as either SVT or possibly atrial flutter with 2:1 block. In any event, his tachycardia resolved and he remains asymptomatic. There was no significant shortness of breath and no chest pain. Blood pressures in the emergency room were relatively low with systolics in the low 100s which is not that different from what he usually runs as an outpatient. Both potassium and magnesium levels were low and treated in the emergency room. Troponins have been negative 3. Echocardiogram was done, results pending. VQ scan is being considered. It should be noted that the patient is being treated for multiple myeloma (Dr. Duncan). Past medical history positive for hypertension, multiple myeloma with associated ESRD on dialysis support since September 2014 (initially hemodialysis and then peritoneal dialysis), hyperlipidemia, hemorrhoidectomy. Outpatient medications include bortezomib, acyclovir, sevelamer, carvedilol, lactulose when necessary, Nephro-Nola and OxyContin. 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 1 MARIO TOP DAILY PERITONEAL SITE (Reported) Lactulose 10 GRAM/15 ML SOLUTION 30 ML PO PRN CONSTIPATION (Reported) Oxycodone HCl 10 MG TABLET 1-2 TAB PO Q4-6H PRN PAIN (Reported) Oxycodone HCl (Oxycodone HCl ER) 20 MG TAB.ER.12H 1 TAB PO BID PAIN (Reported ) Prochlorperazine Maleate 10 MG TABLET 1 TAB PO Q6 PRN N/V (Reported) Sevelamer Carbonate (Renvela) 800 MG TABLET 4 TAB PO WM KIDNEYS (Reported) Vit B Cmplx 3/FA/Vit C/Biotin (Nephro-Nola Rx Tablet) 1 MG-60 MG-300 MCG TABLET 1 TAB PO DAILY SUPPLEMENT (Reported) Review of Systems Review of Systems Constitutional: Reports: weakness. EENTM: Reports: no symptoms. Cardiovascular: Reports: no symptoms. Respiratory: Reports: no symptoms. GI: Reports: no symptoms. Genitourinary: Reports: no symptoms. Musculoskeletal: Reports: back pain. Skin: Reports: no symptoms. Neurological/Psychological: Reports: no symptoms. Past History Travel History Traveled to [place] past 21 day No Medical History Neurological: NONE EENT: NONE Cardiovascular: hypertension Respiratory: NONE Gastrointestinal: APPENDECTOMY Renal: END-STAGE RENAL DISEASE ON PERITONEAL Musculoskeletal: chronic back pain, osteoporosis Psychiatric: NONE Endocrine: NONE Blood Disorders: MULTIPLE MYELOMA Cancer(s): MULTIPLE MYELOMA Surgical History Surgical History: non-contributory Family History Relations & Conditions If Any: Relation not specified for: FH: colon cancer Psychosocial History Services at Home: None Smoking Status: Never Smoked ETOH Use: denies use Illicit Drug Use: denies illicit drug use ECHO Results (as available) Date of last Echo 10/29/14 EF% 65 Exam & Diagnostic Data Vital Signs and I&O Vital Signs Date Time Temp Pulse Resp B/P Pulse O2 O2 Flow FiO2 Ox Delivery Rate 09/02 1217 85 100/68 09/02 0802 98.1 99 18 110/78 95 Room Air 09/01 2337 98.7 94 18 98/80 93 Room Air 09/01 2218 98.1 100 16 112/81 96 Room Air 09/01 2102 90 16 114/75 96 Room Air 09/01 2002 94 113/79 09/01 1902 98.1 101 16 111/81 97 Room Air 09/01 1802 104 16 101/76 95 Room Air 09/01 1731 98 104/70 09/01 1629 Room Air 09/01 1555 98.3 72 16 103/64 94 Intake & Output 09/02 1600 09/02 0400 09/01 1600 09/01 0400 08/31 1600 08/31 0400 Intake Total 120 0 Output Total Balance 120 0 Intake, Oral 120 0 Patient 155 lb 155 lb Weight Physical Exam: General: Well-developed, pleasant white male in NAD Skin: No rash or jaundice HEENT: Conjunctivae pink, sclerae anicteric, mucous membranes moist Neck: Without masses or thyromegaly, no supraclavicular or cervical adenopathy Chest: Clear to P&A Heart: Regular rate and rhythm without S3 or rub Abdomen: Soft and nontender without palpable masses or organomegaly; PD catheter exit site clean and dry Extremities: Without cyanosis or edema Neuro: No focal findings, no asterixis or myoclonus Results Pertinent Lab Results: Laboratory Tests 09/02 09/01 09/01 0510 2355 1621 Chemistry Sodium (137 - 145 mmol/L) 134 L 135 L Potassium (3.5 - 5.1 mmol/L) 3.5 3.4 L Chloride (98 - 107 mmol/L) 93 L 91 L Carbon Dioxide (22 - 30 mmol/L) 28 29 Anion Gap (5 - 16) 14 15 BUN (9 - 20 mg/dL) 48 H 46 H Creatinine (0.7 - 1.2 mg/dL) 13.2 *H 12.0 *H Estimated GFR (>60 ml/min) 4 L 4 L BUN/Creatinine Ratio (7 - 25 %) 3.6 L 3.8 L Glucose (65 - 99 mg/dL) 86 Calcium (8.4 - 10.2 mg/dL) 9.1 Magnesium (1.6 - 2.3 mg/dL) 2.0 1.3 L Total Bilirubin (0.2 - 1.3 mg/dL) 0.6 AST (17 - 59 U/L) 18 ALT (21 - 72 U/L) 23 Alkaline Phosphatase (< 127 U/L) 70 Troponin I (<0.11 ng/ml) 0.10 0.09 0.07 Total Protein (6.3 - 8.2 g/dL) 7.3 Albumin (3.5 - 5.0 g/dL) 3.5 Globulin (1.9 - 4.2 gm/dL) 3.8 Albumin/Globulin Ratio (1.1 - 2.2 %) 0.9 L Coagulation PT (9.4 - 12.5 SEC) 11.8 INR (0.90 - 1.17) 1.13 APTT (25 - 37 SEC) 27 Hematology CBC w Diff NO MAN DIFF REQ WBC (4.8 - 10.8 /CUMM) 5.9 RBC (4.70 - 6.10 /CUMM) 2.87 L Hgb (14.0 - 18.0 G/DL) 9.4 L Hct (42 - 52 %) 28.2 L MCV (80.0 - 94.0 FL) 98.4 H MCH (27.0 - 31.0 PG) 32.8 H RDW (11.5 - 14.5 %) 16.9 H Plt Count (130 - 400 /CUMM) 160 MPV (7.4 - 10.4 FL) 7.3 L Gran % (42.2 - 75.2 %) 81.1 H Lymphocytes % (20.5 - 51.1 %) 9.8 L Monocytes % (1.7 - 9.3 %) 8.7 Eosinophils % (0 - 5 %) 0.1 Basophils % (0.0 - 2.0 %) 0.3 Absolute Granulocytes (1.4 - 6.5 /CUMM) 4.8 Absolute Lymphocytes (1.2 - 3.4 /CUMM) 0.6 L Absolute Monocytes (0.10 - 0.60 /CUMM) 0.5 Absolute Eosinophils (0.0 - 0.7 /CUMM) 0 Absolute Basophils (0.0 - 0.2 /CUMM) 0 PUBS MCHC (33.0 - 37.0 G/DL) 33.4 Assessment/Plan Assessment/Recommendations Assessment: 65-year-old man with end-stage renal disease secondary to multiple myeloma on cycler peritoneal dialysis at home was found yesterday to be tachycardic without any associated symptoms. EKG suggested a regular supraventricular tachycardia, perhaps atrial flutter. Sinus tachycardia seems to be less likely. Though his blood pressures are low, they are not significantly different from his usual levels. Of note is the fact that his magnesium and potassium levels were quite low but have now to a large extent been corrected it is interesting that her potassium levels have in the past at times been high. Echocardiogram results are pending and if VQ scan is being considered. Cardiac enzymes have been negative. Recommendations: 1. Would start him on oral magnesium oxide 400 mg by mouth daily to be continued as an outpatient; level will be checked next week 2. Can give another dose of oral potassium today but would not send out on potassium supplementation 3. Beta alfred therapy per cardiology with cardiology follow-up as an outpatient 4. I'm not sure that there would be any value to proceeding with a VQ scan; can reconsider if tachycardia recurs 5. Peritoneal dialysis orders given but I would agree with plans for discharge home today Thank you. We will follow up.
--- NOTE | 2016-09-02 13:03 | PN- Housestaff ---
PABLO MAJANO 09/02/16 1303: Subjective Follow-up For: Tachycardia Tele-Events Since Last Visit: No overnight telemetry events Subjective: Seen examined patient offers no complaints, is anxious to go home for his pericardial dialysis denies chest pain, shortness of breath. Does complain of back pain. Which radiates towards the front bilaterally. Denies urinary or bladder incontinence. Review of Systems Constitutional: Denies: chills, diaphoresis, fever, malaise, weakness, unexplained weight loss. Cardiovascular: Denies: chest pain, edema, orthopena, palpitations, peripheral edema, syncope. Respiratory: Denies: cough, hemoptysis, orthopnea, short of breath, sputum production, stridor, wheezing. Objective Last 24 Hrs of Vital Signs/I&O Vital Signs Date Time Temp Pulse Resp B/P Pulse O2 O2 Flow FiO2 Ox Delivery Rate 09/02 1246 Room Air Room Air 09/02 1217 85 100/68 09/02 0802 98.1 99 18 110/78 95 Room Air 09/01 2337 98.7 94 18 98/80 93 Room Air 09/01 2218 98.1 100 16 112/81 96 Room Air 09/01 2102 90 16 114/75 96 Room Air 09/01 2002 94 113/79 09/01 1902 98.1 101 16 111/81 97 Room Air 09/01 1802 104 16 101/76 95 Room Air Intake & Output 09/02 1600 09/02 0800 09/02 0000 Intake Total 720 120 0 Output Total Balance 720 120 0 Intake, Oral 720 120 0 Patient 155 lb Weight Physical Exam General Appearance: Alert, Oriented X3, Cooperative, No Acute Distress Cardiovascular: Normal S1, Normal S2, systolic murmur Lungs: Normal Air Movement Abdomen: Soft, No Tenderness Extremities: No Edema Assessment/Plan Assessment: 65-year-old gentleman with a past history significant for multiple myeloma diagnosed 2 years ago, currently undergoing oral chemotherapy every other week, chronic kidney disease on peritoneal dialysis in for evaluation of an episode of tachycardia which now resolved. No overnight events on telemetry was noted, troponins negative with no EKG changes. Problem list Tachycardia? AVNRT Multiple myeloma Chronic kidney disease and peritoneal dialysis Back pain Plan Cardiology and nephrology on board, appreciate recommendations ACS ruled out, echocardiogram within normal limits Patient will follow up with Les Cosby MD as an outpatient for possible loop recorder and stress test Will be discharged on 3.125 mg of Coreg twice a day and Mag-Ox Patient declined a VQ scan Home medications of Tigan, Coreg and pain medications were continued Patient's back pain was evaluated with an MRI recently however only one part of the back was able to be imaged, high suspicion for vertebral compression fracture secondary to multiple myeloma DVT prophylaxis with subcutaneous heparin Patient is full code Stable for discharge today Problem List: 1. Back pain 2. CKD (chronic kidney disease) requiring chronic dialysis 3. Tachyarrhythmia Pain Ratin Pain Location: Not applicable Pain Goal: Pain 4 or less Pain Plan: Current regimen Tomorrow's Labs & Rationales: None required VIRY GAGNON MD 09/02/16 1521: Attending MD Review Statement Attending Statement Attending MD Statement: examined this patient, discuss w/resident/PA/CHAIR AND COUCH MAKER, agreed w/resident/PA/CHAIR AND COUCH MAKER, reviewed EMR data (avail) Attending Assessment/Plan: 65M PMH multiple myeloma on oral chemotherapy, ESRD on PD, chronic lower back pain admitted for asymptomatic tachycardia while at dialysis. Patient feels well and has no complaints. HR has been controlled. Seen by cardiology and nephrology. Patient is stable for discharge home, continue outpatient PD, outpatient cardiology follow up. Coreg has been restarted at 3.125mg BID and will follow up as outpatient. Remaining medications remain unchanged. Added supplemental magnesium.
[2016-09-02] MEDS ORDERED: CARVEDILOL3.125 M1 PO ×2 (13:15→13:47)
--- NOTE | 2016-09-02 13:18 | Patient Discharge Instructions ---
Discharge Instructions General Discharge Information You were seen/treated for: Increased heart rate Special Instructions: These follow-up with your primary care physician within one week of discharge Please follow-up with your rough and trueing machine operator Dr. Cosby next week Acute Coronary Syndrome Inclusion Criteria At DC or during hospital stay patient has or had the following: ACS DIAGNOSIS No Discharge Core Measures Meds if any: Prescribed or Continued at Discharge Meds if any: NOT Prescribed or Continued at Discharge Congestive Heart Failure Inclusion Criteria At DC or during hospital stay patient has or had the following: CHF DIAGNOSIS No Discharge Core Measures Meds if any: Prescribed or Continued at Discharge Meds if any: NOT Prescribed or Continued at Discharge Cerebrovascular accident Inclusion Criteria At DC or during hospital stay patient has or had the following: CVA/TIA Diagnosis No Discharge Core Measures Meds if any: Prescribed or Continued at Discharge Meds if any: NOT Prescribed or Continued at Discharge Venous thromboembolism Inclusion Criteria VTE Diagnosis No VTE Type NONE VTE Confirmed by (Test) NONE Discharge Core Measures - Per Current guidelines, there needs to be overlap - treatment for the first 5 days of Warfarin therapy. - If discharged on Warfarin prior to 5 days of - overlap therapy, the patient will need to be - assessed for post discharge needs including - *Post discharge parental anticoagulation - *Warfarin and/or parental anticoagulation education - *Follow up date to check INR post discharge At least 5 days overlap therapy as Inpatient No Meds if any: Prescribed or Continued at Discharge Note: Overlap Therapy is Warfarin and Anticoagulant Meds if any: NOT Prescribed or Continued at Discharge
[2016-09-02] MEDS ORDERED: MAGNESIUM OXID400 M1 PO (13:45)
--- NOTE | 2016-09-09 13:32 | Discharge Summary ---
Visit Information Visit Dates Admission Date: 09/01/16 Discharge Date: 09/02/16 Hospital Course Course Attending Physician: VIRY GAGONN MD Primary Care Physician: Eugene ALVARADO MD Hospital Course: 65-year-old gentleman with a past history significant for multiple myeloma diagnosed 2 years ago, currently undergoing oral chemotherapy every other week, chronic kidney disease on peritoneal dialysis for the last couple years, hypertension, hyperlipidemia was undergoing dialysis on 09/05/2016, was noted to have an elevated heart rate and was subsequently sent to [facility] emergency room. Vitals on admission: Maximum documented heart rate in ER was 100, afebrile, HR, BP, RR unremarkable, saturating on room air. Labs on admission: Hemoglobin 9.4, potassium 3.4, creatinine 12.0, magnesium 1.3 , INR 1.13. Initial EKG showed supraventricular tachycardia, repeat EKG normal sinus rhythm. Problem list: Tachycardia? AVNRT Multiple myeloma Chronic kidney disease and peritoneal dialysis Back pain Was admitted to the telemetry floor and the following issues were addressed: Tachycardia: AVNRT Telemonitoring showed only short bursts of tachycardia, possible atrial flutter with 2:1 block versus AVNRT per cardiology. ACS ruled out by negative troponins and no new changes in EKG, echocardiogram was within normal limits. Patient will follow up with Les Cosby MD as an outpatient for possible loop recorder and stress test Hypertension: Blood pressure was in low 100s systolic. He had discontinued his Coreg recently. Cardiology restarted his Coreg at 3.125 mg PO BID. Advised to monitor his Blood Pressure after discharge. Chronic kidney disease on peritoneal dialysis Nephrology followed patient while in the hospital, recommended starting oral magnesium daily. Back pain Patient's back pain was evaluated with an MRI recently however only one part of the back was able to be imaged, high suspicion for vertebral compression fracture secondary to multiple myeloma. He was continued on his home dose of pain medications. DVT prophylaxis with subcutaneous heparin Patient was full code Complications: None Allergies: Coded Allergies: NO KNOWN ALLERGIES (06/29/16) Significant Procedures: SERVICE DATE: 09/02/16- EXAM TYPE: CARD - ECHOCARDIOGRAM FINDINGS Left Ventricle Normal global left ventricular size, wall thickness, systolic function with no obvious regional wall motion abnormalities. Left ventricular ejection fraction is estimated at > 55 %. Right Ventricle Normal right ventricular size and function. Right Atrium Normal right atrial size. Left Atrium Normal left atrial size. Mitral Valve Mild mitral annular calcification. No mitral stenosis. Trace to mild mitral regurgitation. Aortic Valve Aortic sclerosis. No aortic stenosis. Tricuspid Valve Structurally normal tricuspid valve. Trace to mild tricuspid regurgitation. Unable to estimate the right ventricular systolic pressure. Pulmonic Valve Pulmonic valve not well visualized, grossly normal. Pericardium No obvious pericardial effusion. Great Vessels Normal size aortic root. CONCLUSIONS Normal global left ventricular size, wall thickness, systolic function with no obvious regional wall motion abnormalities. Left ventricular ejection fraction is estimated at > 55 %. Normal right ventricular size and function. No aortic stenosis. No obvious pericardial effusion. Disposition Summary Disposition Principal Diagnosis: Tachycardia Additional Diagnosis: Multiple myeloma Chronic kidney disease on peritoneal dialysis Back pain Discharge Disposition: home health services Discharge Instructions General Discharge Information Code Status: Full Code Patient's Diet: Renal dialysis diet Patient's Activity: As tolerated Follow-Up Instructions/Appts: follow-up with your primary care physician within one week of discharge follow-up with your installment agent Dr. Cosby with in one week of discharge Medications at Discharge Discharge Medications: Stop taking the following medications: Carvedilol (Carvedilol) 12.5 MG TABLET ORAL DAILY Qty = 60 Continue taking these medications: Sevelamer Carbonate (Renvela) 800 MG TABLET 4 Tablet ORAL WITH MEALS Qty = 480 Comments: Last Taken: 09/02/16 Time: 8:30 AM Acyclovir (Acyclovir) 200 MG CAPSULE 1 Capsule ORAL DAILY Qty = 30 Comments: NOT TAKEN IN HOSPITAL Oxycodone HCl (Oxycodone HCl) 10 MG TABLET 1-2 Tablet ORAL Q4-6H as needed for PAIN Qty = 100 Comments: Last Taken: 09/02/16 Time: 8:30 AM Lactulose (Lactulose) 10 GRAM/15 ML SOLUTION 30 Milliliters ORAL as needed for CONSTIPATION Qty = 473 Comments: NOT TAKEN IN HOSPITAL Vit B Cmplx 3/FA/Vit C/Biotin (Nephro-Nola Rx Tablet) 1 MG-60 MG-300 MCG TABLET 1 Tablet ORAL DAILY Qty = 30 Comments: NOT TAKEN IN HOSPITAL Prochlorperazine Maleate (Prochlorperazine Maleate) 10 MG TABLET 1 Tablet ORAL EVERY SIX HOURS as needed for N/V Comments: NOT TAKEN IN HOSPITAL Oxycodone HCl (Oxycodone HCl ER) 20 MG TAB.ER.12H 1 Tablet ORAL TWICE DAILY Comments: Last Taken: 09/02/16 Time: 12:00 PM Gentamicin Sulfate (Gentamicin Sulfate) 0.1 % CREAM..G. 1 Application On the skin DAILY Qty = 30 Comments: NOT TAKEN IN HOSPITAL Start taking the following new medications: Carvedilol (Carvedilol) 3.125 MG TABLET 1 Tablet ORAL TWICE DAILY Qty = 30 No Refills Magnesium Oxide (Magnesium Oxide) 400 MG TABLET 1 Tablet ORAL DAILY Qty = 30 No Refills Copies To: SHARON KRISHNAMURTHY,[facility]; Eugene ALVARADO MD Attending Review Statement Documenting Attending: VIRY GAGNON MD
== END 2016-09-02 15:10 | DRG 308 ==
LOC: ENRESERVTM → ENRESERVDT → ERH 15:49 → ENPENDDIS 19:41 → ERHI 19:41 → 1NO 19:41
PROVIDERS: Student in an Organized Health Care Education/Training Program; ADMIT Internal Medicine
DX: I47.1 Supraventricular tachycardia (principal); N18.6 End stage renal disease; C90.00 Multiple myeloma not having achieved remission; I12.0 Hypertensive chronic kidney disease with stage 5 chronic kidney disease or end stage renal disease; E78.5 Hyperlipidemia, unspecified; E87.6 Hypokalemia; E83.42 Hypomagnesemia; Z99.2 Dependence on renal dialysis
CPT/HCPCS: 1NP; 36415; 82436; 93005; 93010; 93306; 96374; J1644; J3250

== ENCOUNTER 2017-10-25 09:25 | Inpatient (IN) | payer OTHER, MEDICARE ==
[~2017-10-25] VITALS: Ht 172.7 cm; Wt 75.9 kg
[~2017-10-25 09:25] MED LIST changes: +CARVEDILOL3.125 M1 PO; +LACTULOSE10 GM/153 PO; +MAGNESIUM OXID400 M1 PO; +OXYCODONE HCL E20 MG PO; +OXYCODONE HCL10 M2 PO; +PROCHLORPERAZIN10 MG PO
--- NOTE | 2017-10-25 09:53 | ED AMS/SEIZURE/WEAK/DIZZY ---
History of Present Illness General Chief Complaint: General Adult Stated Complaint: SENT IN FOR CT SCAN BY MD Source: patient Exam Limitations: no limitations Vital Signs & Intake/Output Vital Signs & Intake/Output Vital Signs Date Time Temp Pulse Resp B/P B/P Pulse O2 O2 Flow FiO2 Mean Ox Delivery Rate 10/26 0638 101.2 101 20 88/60 100 Nasal Cannula 10/26 0200 101.9 10/26 0114 100.8 10/26 0000 Nasal 2.0L Cannula 10/25 2319 101.7 114 18 104/68 95 Room Air 10/25 2119 Nasal 2.0L Cannula 10/25 2046 100.3 113 20 98/70 91 Nasal 2.0L Cannula 10/25 1902 98.0 106 16 91/66 95 Nasal 2.0L Cannula 10/25 1745 100 16 90/64 97 Nasal 2.0L Cannula 10/25 1623 94 16 84/53 97 Nasal 2.0L Cannula 10/25 1557 98.2 95 16 78/50 97 Non 2.0L ReBreather 10/25 1440 98.2 89 16 70/49 97 Nasal 2.0L Cannula 10/25 1339 93 16 76/53 97 Nasal 2.0L Cannula 10/25 1245 98.0 100 16 76/52 97 Nasal 2.0L Cannula 10/25 1212 97.8 101 16 96/68 96 Nasal 2.0L Cannula 10/25 1127 106 16 90/61 96 Nasal 2.0L Cannula 10/25 1028 112 20 88/58 10/25 1005 111 20 80/52 ED Intake and Output 10/26 0000 10/25 1200 Intake Total 1000 Output Total Balance 1000 Intake, IV 1000 Patient 161 lb 150 lb Weight Weight Bed scale Standing Scale Measurement Method Allergies Coded Allergies: NO KNOWN ALLERGIES (06/29/16) Reconcile Medications Acyclovir 200 MG CAPSULE 1 CAP PO DAILY SHINGLE PREVENTION (Reported) Apixaban (Eliquis) 2.5 MG TABLET 1 TAB PO BID BLOOD THINNER (Reported) Carvedilol 3.125 MG TABLET 1 TAB PO BID BLOOD PRESSURE Lubiprostone (Amitiza) 24 MCG CAPSULE 1 CAP PO BID GI (Reported) Magnesium Oxide 400 MG TABLET 1 TAB PO DAILY HYPOMAGNESEMIA Oxycodone HCl 10 MG TABLET 1-2 TAB PO Q4-6H PRN PAIN (Reported) Oxycodone HCl (Oxycodone HCl ER) 20 MG TAB.ER.12H 1 TAB PO BID PAIN (Reported ) Prochlorperazine Maleate 10 MG TABLET 1 TAB PO Q6 PRN N/V (Reported) Sevelamer Carbonate (Renvela) 800 MG TABLET 4 TAB PO WM KIDNEYS (Reported) Sevelamer Carbonate (Renvela) 800 MG TABLET 2 TAB PO TID PRN KIDNEYS ( Reported) Vit B Cmplx 3/FA/Vit C/Biotin (Nephro-Nola Rx Tablet) 1 MG-60 MG-300 MCG TABLET 1 TAB PO DAILY SUPPLEMENT (Reported) Triage Note: PT SIB DR FOR CT SCANS. HAS A HISTORY OF MULTIPLE MYELOMA AND KIDNEY DISEASE. SUN STARTED TO HAVE CONFUSION, UNABLE TO PROCESS WORDS. REPORTS ALSO HAVING HARDER TIME WITH MOTOR SKILLS. HAS BEEN FORGETFUL OF EVENTS HAPPENING WELL. CALLED DR ALEMAN AND TOLD TO COME IN FOR A CAT SCAN. DENIES ANY RECENT FALLS. Triage Nurses Notes Reviewed? yes HPI: Patient presents for evaluation of worsening and more or less constant confusion and disorientation since the weekend. The patient's spoke with Dr. Malhotra was told to take him to the emergency department for an evaluation yesterday. She was unable to bring him to the emergency department until this morning. Patient is currently on chemotherapy for a history of multiple myeloma (last treatment was on the fourth of this month) as well as home peritoneal dialysis. Other than some hyperventilation episodes and his states responds to verbal intervention the patient and deny fever, cold symptoms, chest pain, abdominal pain, vomiting, diarrhea or rashes. Past History Travel History Traveled to [place] past 21 day No Medical History Any Pertinent Medical History? see below for history Neurological: NONE EENT: NONE Cardiovascular: hypertension Respiratory: NONE Gastrointestinal: APPENDECTOMY Renal: END-STAGE RENAL DISEASE ON PERITONEAL Musculoskeletal: chronic back pain, osteoporosis Psychiatric: NONE Endocrine: NONE Blood Disorders: MULTIPLE MYELOMA Cancer(s): MULTIPLE MYELOMA History of MRSA: No History of VRE: No History of CDIFF: No Influenza Vaccine: 03/17/16 Surgical History Surgical History: non-contributory Psychosocial History Who do you live with Family Services at Home None What is your primary language Bur[place]ian Tobacco Use: Never used Family History Family History, If Any: Relation not specified for: FH: colon cancer Hx Contributory? No Review of Systems Review of Systems Constitutional: Reports: see HPI. EENTM: Reports: no symptoms. Respiratory: Reports: no symptoms. Cardiovascular: Reports: no symptoms. GI: Reports: no symptoms. Genitourinary: Reports: no symptoms. Musculoskeletal: Reports: no symptoms. Skin: Reports: no symptoms. Neurological/Psychological: Reports: no symptoms. Hematologic/Endocrine: Reports: no symptoms. Immunologic/Allergic: Reports: no symptoms. All Other Systems: Reviewed and Negative Physical Exam Physical Exam General Appearance: SEE BELOW Comments: Gen.: Well-nourished, well-developed, no acute respiratory distress. Thin but not cachectic. Head: Normocephalic, atraumatic. Eyes: Normal inspection bilaterally Ears: Normal inspection bilaterally Nose: Normal inspection Throat/mouth : Tacky mucosa Neck: Supple, full range of motion, no goiter Heart: Rapid but otherwise Regular rate and rhythm, no murmurs rubs or gallops Lungs: Clear to auscultation bilaterally with normal air entry Chest: Nontender Back: Normal range of motion Abdomen: Soft, nontender, nondistended, normal bowel sounds, dialysis catheter in place. Extremities: Normal range of motion grossly, equal radial pulses, no cyanosis clubbing or edema Neurologic: Cranial nerves grossly intact, speech is clear, patient follows commands readily, patient answers questions appropriately but often requires some time to answer Skin: warm and dry Psychiatric: Calm, cooperative, no apparent delusions or hallucinations Core Measures ACS in differential dx? No CVA/TIA Diagnosis No Sepsis Present: No Sepsis Focused Exam Completed? No Progress Differential Diagnosis: anemia, dehydration, electrolyte imbalance, hypoglycemia , hypoxia, intracranial Hem., intracranial mass/tumor, UTI/pyelo Plan of Care: Orders Procedure Date/time Status BASIC ELECTROLYTES PLUS BUN&CR 10/27 0600 Active BODY FLUID CELL COUNT 10/26 0915 Active TROPONIN LEVEL 10/26 0600 Complete PHOSPHORUS 10/26 0600 Complete MAGNESIUM 10/26 0600 Complete CBC WITHOUT DIFFERENTIAL 10/26 0600 Complete CALCIUM 10/26 0600 Complete BASIC ELECTROLYTES PLUS BUN&CR 10/26 0600 Complete EKG 10/26 0500 Active Weight 10/26 0220 Active BLOOD PRODUCT PICKUP 10/26 0037 Active LEUKOCYTE POOR (PACKED CELLS) 10/26 0004 Active BLOOD CULTURE 10/26 0000 Active Renal Dialysis Diet 10/25 D Active Peritoneal Dialysis 10/25 2322 Active Teach/Educate 10/25 232 Active Pain Treatment and Response 10/25 232 Active Nutritional Intake, Monitor 10/25 232 Active Isolation 10/25 232 Active Patient Care Conference 10/25 232 Active Activity/Ambulation 10/25 2321 Active TROPONIN LEVEL 10/25 2200 Complete CBC WITHOUT DIFFERENTIAL 10/25 220 Complete EKG 10/25 220 Active THERAPIST ORDERS 10/25 2122 Complete RT: Evaluation 10/25 2118 Active TROPONIN LEVEL 10/25 1600 Complete LACTIC ACID 10/25 1600 Complete EKG 10/25 1600 Active TYPE & SCREEN (NOT X-MATCH) 10/25 1600 Active TRC EVALUATION (GEN) 10/25 1516 Complete OXYGEN SETUP (GEN) 10/25 1516 Complete Pathway - chart 10/25 1516 Active House Staff 10/25 1516 Active Patient Data 10/25 1332 Active CULTURE,BODY FLUID 10/25 1305 Active BODY FLUID CELL COUNT 10/[address] in observation 10/25 1218 Active Misc Message 10/25 1218 Active ED Holding Orders 10/25 1218 Active Vital Signs 10/25 1218 Active Code Status 10/25 1218 Active Intake & Output 10/25 1007 Active Saline Lock 10/25 0958 Active CULTURE,URINE 10/25 0958 Active TSH REFLEX 10/25 0958 Complete TROPONIN LEVEL 10/25 0958 Complete ETHANOL 10/25 0958 Complete COMPREHENSIVE METABOLIC PANEL 10/25 0958 Complete CBC WITHOUT DIFFERENTIAL 10/25 0958 Complete EKG 10/25 0958 Active OXYGEN SETUP CHG 10/25 UNK Complete INCENTIVE SPIROMETRY TRX CHG 10/25 UNK Complete OXYGEN 10/25 UNK Complete VTE Mechanical Prophylaxis 10/25 UNK Active Peritoneal Dialysis 10/25 UNK Active Hemoccult 10/25 UNK Active Current Medications Sig/Christie Start time Last Medication Dose Stop Time Status Admin Acyclovir 200 MG DAILY 10/26 1000 AC (Zovirax-Acyclovir 200MG Capsule) Multivitamins 1 TAB DAILY 10/26 1000 AC (Nephrocaps) Patient Medication 1 ED ONE ONE 10/26 1000 AC Teaching 10/26 1001 (Medication Education ONE) Ceftriaxone Sodium 1,000 MG DAILY 10/26 0900 AC (Rocephin) Oxycodone HCl 20 MG 0900,2100 10/26 0900 AC 10/26 (OxyCONTIN) 0827 Dextrose/Sodium 1,000 ML Q20H 10/26 0815 AC 10/26 Chloride 0844 (D5W-1/2 Normal Saline 1000ML) Oxycodone HCl 20 MG Q6P PRN 10/25 231 CAN (OxyCONTIN) Oxycodone HCl 10 MG Q4-6 PRN PRN 10/25 2315 AC (Roxicodone) Apixaban 2.5 MG BID 10/25 2199 AC 10/26 (Eliquis) 08 Lubiprostone 24 MCG BID 10/25 220 AC 10/26 (Amitiza) 0828 Sevelamer Carbonate 3,200 MG WM 10/25 1700 AC 10/26 (Renvela) 0827 Prochlorperazine 10 MG Q6 PRN 10/25 161 AC (Compazine) Sevelamer Carbonate 1,600 MG TID PRN 10/25 161 AC (Renvela) Magnesium Oxide 400 MG DAILY 10/25 1611 AC 10/26 (Mag-Ox) 0827 Laboratory Tests 10/26/17 0600: Troponin I Cancelled 10/26/17 0600: Anion Gap 18 H, Estimated GFR 4 L, BUN/Creatinine Ratio 5.4 L, Calcium 8.3 L , Phosphorus 7.2 H, Magnesium 1.3 L, Troponin I 1.77 *H, CBC w Diff NO MAN DIFF REQ, RBC 2.00 L, MCV 98.1 H, MCH 32.3 H, MCHC 32.9 L, RDW 18.6 H, MPV 8.5, Gran % 89.1 H, Lymphocytes % 4.7 L, Monocytes % 6.1, Eosinophils % 0, Basophils % 0.1, Absolute Granulocytes 4.8, Absolute Lymphocytes 0.3 L, Absolute Monocytes 0.3, Absolute Eosinophils 0, Absolute Basophils 0 10/26/17 0000: Lymphocytes 18, % Normal PMNs 45, Misc Hematology Test , Fluid WBC 86 H, Fld Total RBCs Counted 24 H 10/25/17 2248: Troponin I 1.28 *H, CBC w Diff NO MAN DIFF REQ, RBC 1.93 L, MCV 99.6 H, MCH 33.2 H, MCHC 33.3, RDW 17.9 H, MPV 8.4, Gran % 92.3 H, Lymphocytes % 3.4 L, Monocytes % 4.3, Eosinophils % 0, Basophils % 0, Absolute Granulocytes 5.4, Absolute Lymphocytes 0.2 L, Absolute Monocytes 0.3, Absolute Eosinophils 0, Absolute Basophils 0 10/25/17 1620: Lactic Acid 1.3, Troponin I 1.23 *H 10/25/17 1002: Anion Gap 23 H, Estimated GFR 4 L, BUN/Creatinine Ratio 5.4 L, Glucose 122 H , Calcium 8.9, Total Bilirubin 0.7, AST 19, ALT 24, Alkaline Phosphatase 58, Troponin I 0.98 *H, Total Protein 7.3, Albumin 3.2 L, Globulin 4.1, Albumin/ Globulin Ratio 0.8 L, TSH &T3 &Free T4 Intrp 2.240, CBC w Diff MAN DIFF ORDERED , RBC 2.20 L, MCV 98.2 H, MCH 33.1 H, MCHC 33.7, RDW 17.5 H, MPV 8.4, Gran % 91.4 H, Lymphocytes % 3.3 L, Monocytes % 5.2, Eosinophils % 0, Basophils % 0.1 , Absolute Granulocytes 7.9 H, Absolute Lymphocytes 0.3 L, Absolute Monocytes 0.4, Absolute Eosinophils 0, Absolute Basophils 0, Platelet Estimate VERIFIED BY SMEAR, Polychromasia 1+, Anisocytosis 1+, Serum Alcohol < 10.0 10/25/17 0958: Methadone Screen Cancelled, Barbiturate Screen Cancelled, Ur Phencyclidine Scrn Cancelled, Amphetamines Screen Cancelled, U Benzodiazepines Scrn Cancelled, Urine Cocaine Screen Cancelled, Urine Cannabis Screen Cancelled, Urine Color Cancelled, Urine Clarity Cancelled, Urine pH Cancelled, Ur Specific [place] Cancelled, Urine Protein Cancelled, Urine Ketones Cancelled, Urine Nitrite Cancelled, Urine Bilirubin Cancelled, Urine Urobilinogen Cancelled, Ur Leukocyte Esterase Cancelled, Ur Microscopic Cancelled, Urine Hemoglobin Cancelled, Urine Glucose Cancelled Microbiology 10/26 29 BLOOD: Blood Culture - RES GRAM POSITIVE COCCI 10/26 29 BLOOD: Blood Culture - RES GRAM POSITIVE COCCI 10/25 130 BODY FLUID: Body Fluid Culture - COLB 10/25 1304 BODY FLUID: Gram Stain - COLB 10/25 09 URINE ROUT: Urine Culture - COLB Diagnostic Imaging: Discussed w/RAD: CT Scan. Radiology Impression: PATIENT: ISIDRO DU PRESENT AGE: 66 PATIENT ACCOUNT NO: [id number] : 52 LOCATION: [facility] ORDERING PHYSICIAN: Adan Waters MD SERVICE DATE: 10/25/17 EXAM TYPE: CAT - CT HEAD WO IV CONTRAST EXAMINATION: CT HEAD WITHOUT CONTRAST CLINICAL INFORMATION: Altered mental status. History of multiple myeloma. Evaluate for intracranial hemorrhage or mass. COMPARISON: No relevant prior imaging. TECHNIQUE: Contiguous axial imaging was performed from the skull base to vertex without intravenous administration of contrast. DLP: 420.43 mGy-cm FINDINGS: And motion degrades image quality therefore the diagnostic accuracy of this examination is limited. There is no acute intracranial hemorrhage or abnormal extra axial collision. No intracranial mass effect or midline shift. Lateral and third ventricles are normal. No hydrocephalus. Scattered ill-defined foci of hypoattenuation was within the periventricular white matter. Carreno-white matter projection is grossly preserved and there is no evidence of acute territorial infarct. The calvarium and skull base are intact. Mastoid air cells and middle ear cavities are well-aerated. Visualized paranasal sinuses are well-aerated. IMPRESSION: Normal CT scan of the head. No evidence acute territorial infarct or hemorrhage. DICTATED BY: Nasir Brown MD DATE/TIME DICTATED:10/25/171036 CLOTH SHRINKING SUPERVISOR:YULIET DATE/TIME TRANSCRIBED:10/25/171036 CONFIDENTIAL, DO NOT COPY WITHOUT APPROPRIATE AUTHORIZATION. <Electronically signed in Other Vendor System> SIGNED BY: Nasir Brown MD 10/25/17 1045 Initial ED EKG: NSR, rate (108), nonspecific ST T wave chg, PAC'S Prior EKG: unchanged (ASIDE FROM PAC'S) Comments: 10/25/2017 11:21:43 AM clinically Isidro appears more comfortable and more alert. Patient's case discussed with case management regarding admission versus observation. 10/25/2017 11:34:45 AM patient heart rate is slowly improving as well as his blood pressure. 10/25/2017 11:39:19 AM patient's case discussed with Dr. Oropeza and then with Dr. Carvajal (covering the ICU) since. Kwasi Carvajal MD feels the patient is stable enough for telemetry admission. 10/25/2017 12:07:43 PM patient's case discussed with Les Cosby MD who will see the patient shortly. He feels that there is no need for specific intervention. The troponin should be trended. 10/25/2017 1:21:01 PM patient's case discussed with the MOD. Departure Departure Disposition: STILL A PATIENT Condition: Stable Clinical Impression Primary Impression: Hypotension Qualifiers: Hypotension type: unspecified hypotension type Qualified Code: I95.9 - Hypotension, unspecified Secondary Impressions: Anemia, Elevated troponin, History of multiple myeloma, History of renal failure, Tachycardia, Volume depletion Referrals: Frederic KRISHNAMURTHY,Tad Navarro (PCP/Family) Departure Forms: Customer Survey General Discharge Information Observation Note Spoke With: Sherley Oropeza MD Patient In: Non-ED OBS Care Area Rationale for Observation: My rational for observation is as follows patient presented hypotensive and lethargic to the emergency department. He required an emergent fluid bolus to improve his mentation and vital signs. In addition the patient has an anemia and elevated troponin level. I do not feel he is a good candidate for outpatient management under these circumstances given his lethargy and multiple medical problems. I feel his functional capacity would prevent him from compliance with outpatient treatment and he would likely return in worse clinical condition. The multitude of medical problems places him at risk of worsening tachycardia and hypotension and cardiac arrest. The patient's dialysis complicates his treatment by placing him at risk of volume overload with overly aggressive IV fluids or with blood transfusion. I feel this patient requires hospitalization for 4 acute stabilization and treatment of his medical issues. Regarding his hypotension, the patient should be treated with gentle IV fluids and frequent reassessments of vital signs and clinical condition. Regarding his elevated troponin, serial troponin determinations should be obtained along with cardiology consultation. Regarding his anemia, patient should have his hematocrit and hemoglobin monitored and transfusion considered if his hemoglobin drops below 7. Hematology oncology consultation should be considered. Regarding his history of renal failure, patient should have his peritoneal dialysis continued and his electrolytes and renal functions monitored. Nephrology consultation to be considered.
[2017-10-25 10:19] LABS: ABSOLUTE BASOPHIL COUNT 0 /CUMM (0.0-0.2); ABSOLUTE EOSINOPHIL COUNT 0 /CUMM (0.0-0.7); ABSOLUTE GRANULOCYTE CT 7.9 /CUMM (1.4-6.5); ABSOLUTE LYMPH COUNT 0.3 /CUMM (1.2-3.4); ABSOLUTE MONOCYTE COUNT 0.4 /CUMM (0.10-0.60); BASOPHIL % 0.1 % (0.0-2.0); EOSINOPHIL % 0 % (0-5); GRANULOCYTE % 91.4 % (42.2-75.2); HEMATOCRIT 21.6 % (42-52); MEAN CORPUSCULAR HGB 33.1 PG (27.0-31.0); MEAN CORPUSCULAR HGB CONC 33.7 G/DL (33.0-37.0); MEAN CORPUSCULAR VOLUME 98.2 FL (80.0-94.0); MEAN PLATELET VOLUME 8.4 FL (7.4-10.4); PLATELET COUNT 142 /CUMM (130-400); RBC DISTRIBUTION WIDTH 17.5 % (11.5-14.5); WHITE BLOOD CELL COUNT 8.6 /CUMM (4.8-10.8)
--- NOTE | 2017-10-25 10:45 | CT SCAN REPORT ---
EXAMINATION: CT HEAD WITHOUT CONTRAST CLINICAL INFORMATION: Altered mental status. History of multiple myeloma. Evaluate for intracranial hemorrhage or mass. COMPARISON: No relevant prior imaging. TECHNIQUE: Contiguous axial imaging was performed from the skull base to vertex without intravenous administration of contrast. DLP: 420.43 mGy-cm FINDINGS: And motion degrades image quality therefore the diagnostic accuracy of this examination is limited. There is no acute intracranial hemorrhage or abnormal extra axial collision. No intracranial mass effect or midline shift. Lateral and third ventricles are normal. No hydrocephalus. Scattered ill-defined foci of hypoattenuation was within the periventricular white matter. Carreno-white matter projection is grossly preserved and there is no evidence of acute territorial infarct. The calvarium and skull base are intact. Mastoid air cells and middle ear cavities are well-aerated. Visualized paranasal sinuses are well-aerated. IMPRESSION: Normal CT scan of the head. No evidence acute territorial infarct or hemorrhage.
[2017-10-25] MEDS ORDERED: ELIQUIS2.5 M1 PO (10:47)
[2017-10-25] MEDS ORDERED: AMITIZA24 MC1 PO (10:47)
[2017-10-25] MEDS ORDERED: RENVELA800 M1 PO (10:50)
--- NOTE | 2017-10-25 11:22 | RADIOLOGY REPORT ---
EXAMINATION: XR PORTABLE CHEST CLINICAL INFORMATION: Altered mental status, history of multiple myeloma COMPARISON: CT dated 10/23/2016, chest x-ray dated 11/24/2015 TECHNIQUE: Portable frontal view of the chest was obtained. FINDINGS: There are low lung volumes with bronchovascular crowding. Hazy opacity present in the left infrahilar region and right upper lung. No evidence of pleural effusion or pneumothorax. Cardiomediastinal silhouette is unchanged. IMPRESSION: Hazy opacities in the right upper lung and left base given low lung volumes and distribution are favored to represent atelectasis.
--- NOTE | 2017-10-25 13:06 | Cons- Nephrology ---
General Information and HPI Consulting Request Date of Consult: 10/25/17 Requested By: ED Reason for Consult: ESRD & hypotension Source of Information: patient, old records Exam Limitations: no limitations History of Present Illness: 66 yr old WM w known MM & ESRD on chronic CCPD admit today after episode confusion @ home. Found hypotensive to 60s systolic & given IV NS w improved MS. No CP or SOB but troponin found elevated. On night time CCPD alternating 1.5 & 2.5% dextrose solution w daytime icodextrin. Has known chronic hypotension to 90s systolic. No cloudy PD fluid, abd pain, or fever. No hx vomiting or diarrhea. Last PD exchanges via cycler last night w daytime icodextrin exchange now dwelling. Allergies/Medications Allergies: Coded Allergies: NO KNOWN ALLERGIES (06/29/16) Home Med List: Acyclovir 200 MG CAPSULE 1 CAP PO DAILY SHINGLE PREVENTION (Reported) Apixaban (Eliquis) 2.5 MG TABLET 1 TAB PO BID BLOOD THINNER (Reported) Carvedilol 3.125 MG TABLET 1 TAB PO BID BLOOD PRESSURE Lubiprostone (Amitiza) 24 MCG CAPSULE 1 CAP PO BID GI (Reported) Magnesium Oxide 400 MG TABLET 1 TAB PO DAILY HYPOMAGNESEMIA Oxycodone HCl 10 MG TABLET 1-2 TAB PO Q4-6H PRN PAIN (Reported) Oxycodone HCl (Oxycodone HCl ER) 20 MG TAB.ER.12H 1 TAB PO BID PAIN (Reported ) Prochlorperazine Maleate 10 MG TABLET 1 TAB PO Q6 PRN N/V (Reported) Sevelamer Carbonate (Renvela) 800 MG TABLET 4 TAB PO WM KIDNEYS (Reported) Sevelamer Carbonate (Renvela) 800 MG TABLET 2 TAB PO TID PRN KIDNEYS ( Reported) Vit B Cmplx 3/FA/Vit C/Biotin (Nephro-Nola Rx Tablet) 1 MG-60 MG-300 MCG TABLET 1 TAB PO DAILY SUPPLEMENT (Reported) Review of Systems Review of Systems Constitutional: Reports: no symptoms. EENTM: Reports: no symptoms. Cardiovascular: Reports: no symptoms. Respiratory: Reports: no symptoms. GI: Reports: no symptoms. Genitourinary: Reports: no symptoms. Musculoskeletal: Reports: no symptoms. Skin: Reports: no symptoms. Neurological/Psychological: Reports: see HPI, confusion. Hematologic/Endocrine: Reports: no symptoms. Immunologic/Allergic: Reports: no symptoms. All Other Systems: Reviewed and Negative Past History Travel History Traveled to [place] past 21 day No Medical History Neurological: NONE EENT: NONE Cardiovascular: hypertension Respiratory: NONE Gastrointestinal: APPENDECTOMY Renal: END-STAGE RENAL DISEASE ON PERITONEAL Musculoskeletal: chronic back pain, osteoporosis Psychiatric: NONE Endocrine: NONE Blood Disorders: MULTIPLE MYELOMA Cancer(s): MULTIPLE MYELOMA Surgical History Surgical History: non-contributory Family History Relations & Conditions If Any: Relation not specified for: FH: colon cancer Psychosocial History Services at Home: None Smoking Status: Never Smoked ETOH Use: denies use Exam & Diagnostic Data Vital Signs and I&O Vital Signs Date Time Temp Pulse Resp B/P B/P Pulse O2 O2 Flow FiO2 Mean Ox Delivery Rate 10/25 1245 98.0 100 16 76/52 97 Nasal 2.0L Cannula 10/25 1212 97.8 101 16 96/68 96 Nasal 2.0L Cannula 10/25 1127 106 16 90/61 96 Nasal 2.0L Cannula 10/25 1028 112 20 88/58 10/25 1005 111 20 80/52 10/25 0932 99.7 78 16 64/34 92 Room Air Intake & Output 10/25 1600 10/25 0400 10/24 1600 10/24 0400 10/23 1600 10/23 0400 Intake Total 1000 Output Total Balance 1000 Intake, IV 1000 Patient 150 lb Weight Weight Standing Scale Measurement Method Physical Exam General Appearance: well developed/nourished, no apparent distress, alert Head: atraumatic, normal appearance Eyes: Bilateral: normal appearance. Ears, Nose, Throat: normal ENT inspection Neck: normal inspection, supple Respiratory: normal breath sounds, lungs clear Cardiovascular: regular rate/rhythm Gastrointestinal: soft, non-tender, no organomegaly Back: normal inspection Extremities: no edema Neurologic/Psych: no motor/sensory deficits, awake, alert, fish skinning machine feeder II-XII nml as tested Skin: intact, normal color, warm/dry Lymphatic: no anterior cervical matty, no axil adenopathy Results Pertinent Lab Results: Laboratory Tests 10/25 10/25 1002 0958 Chemistry Sodium (137 - 145 mmol/L) 139 Potassium (3.5 - 5.1 mmol/L) 3.8 Chloride (98 - 107 mmol/L) 92 L Carbon Dioxide (22 - 30 mmol/L) 24 Anion Gap (5 - 16) 23 H BUN (9 - 20 mg/dL) 66 H Creatinine (0.7 - 1.2 mg/dL) 12.2 *H Estimated GFR (>60 ml/min) 4 L BUN/Creatinine Ratio (7 - 25 %) 5.4 L Glucose (65 - 99 mg/dL) 122 H Calcium (8.4 - 10.2 mg/dL) 8.9 Total Bilirubin (0.2 - 1.3 mg/dL) 0.7 AST (17 - 59 U/L) 19 ALT (21 - 72 U/L) 24 Alkaline Phosphatase (< 127 U/L) 58 Troponin I (<0.11 ng/ml) 0.98 *H Total Protein (6.3 - 8.2 g/dL) 7.3 Albumin (3.5 - 5.0 g/dL) 3.2 L Globulin (1.9 - 4.2 gm/dL) 4.1 Albumin/Globulin Ratio (1.1 - 2.2 %) 0.8 L TSH &T3 &Free T4 Intrp (0.27 - 4.20 uIU/mL) 2.240 Hematology CBC w Diff MAN DIFF ORDERED WBC (4.8 - 10.8 /CUMM) 8.6 RBC (4.70 - 6.10 /CUMM) 2.20 L Hgb (14.0 - 18.0 G/DL) 7.3 *L Hct (42 - 52 %) 21.6 L MCV (80.0 - 94.0 FL) 98.2 H MCH (27.0 - 31.0 PG) 33.1 H MCHC (33.0 - 37.0 G/DL) 33.7 RDW (11.5 - 14.5 %) 17.5 H Plt Count (130 - 400 /CUMM) 142 MPV (7.4 - 10.4 FL) 8.4 Gran % (42.2 - 75.2 %) 91.4 H Lymphocytes % (20.5 - 51.1 %) 3.3 L Monocytes % (1.7 - 9.3 %) 5.2 Eosinophils % (0 - 5 %) 0 Basophils % (0.0 - 2.0 %) 0.1 Absolute Granulocytes (1.4 - 6.5 /CUMM) 7.9 H Absolute Lymphocytes (1.2 - 3.4 /CUMM) 0.3 L Absolute Monocytes (0.10 - 0.60 /CUMM) 0.4 Absolute Eosinophils (0.0 - 0.7 /CUMM) 0 Absolute Basophils (0.0 - 0.2 /CUMM) 0 Platelet Estimate (ADEQUATE) VERIFIED BY SMEAR Polychromasia 1+ Anisocytosis 1+ Toxicology Methadone Screen Cancelled Barbiturate Screen Cancelled Ur Phencyclidine Scrn Cancelled Amphetamines Screen Cancelled U Benzodiazepines Scrn Cancelled Urine Cocaine Screen Cancelled Urine Cannabis Screen Cancelled Serum Alcohol (<10 MG/DL) < 10.0 Urines Urine Color Cancelled Urine Clarity Cancelled Urine pH Cancelled Ur Specific [place] Cancelled Urine Protein Cancelled Urine Ketones Cancelled Urine Nitrite Cancelled Urine Bilirubin Cancelled Urine Urobilinogen Cancelled Ur Leukocyte Esterase Cancelled Ur Microscopic Cancelled Urine Hemoglobin Cancelled Urine Glucose Cancelled Imaging/Other Studies: CXR: There are low lung volumes with bronchovascular crowding. Hazy opacity present in the left infrahilar region and right upper lung. No evidence of pleural effusion or pneumothorax. Cardiomediastinal silhouette is unchanged. IMPRESSION: Hazy opacities in the right upper lung and left base given low lung volumes and distribution are favored to represent atelectasis. CT: Normal CT scan of the head. No evidence acute territorial infarct or hemorrhage. Assessment/Plan Assessment/Recommendations Assessment: 1. ESRD: due to MM; on PD w/o clinical evidence periotinitis but will exclude. Needs to change to all 1.5% dextrose to limit UF. 2. Hypotension: prob hyovolemic & favor additional volume expansion. Needs NH excluded but no sx despite eleavted TPN. Needs sepsis excluded. 3. Anemia: chronic w CHRISTIAN resistance due to MM. Recommendations: 1. PD cell # & C&S 2. PD: all 1/5% dextrose low Ca x 4 per day 3. echocardiogram 4. card consult 5. IV NS 500 ml bolus 6. consider antibiotic coverage if no improvement
--- NOTE | 2017-10-25 13:36 | History & Physical ---
[place]pe[place]aly 10/25/17 1335: General Information and HPI MD Statement: I have seen and personally examined JUAN A DU and documented this H&P. The patient is a 66 year old M who presented with a patient stated chief complaint of lethargic and confusion for last couple of days []. Source of Information: patient, family, old records Exam Limitations: no limitations History of Present Illness: 66 YO M non smoker with PMH of multiple myeloma status post chemotherapy, A.fib on eliquis, ESRD on peritoneal dialysis, hypertension, chronic back pain and osteoporosis brought to ED by his with chief complaint of having lethargic and confusion for last 4-5 days. Patient's was on his bedside and she gave most of the history. She reported that he was in his usual state of health until Monday when she started to notice that he is becoming more lethargic and looks confused. She reported that she took him to oncologists office and they did CT scan of the head to rule out intracranial pathology considering his confusion. Patient was sent to ED by the oncologist for further evaluation but she was unable to bring him to the ED until this morning. She reported that his appetite has been decreased and he is feeling nauseous all the time probably due to his chemotherapy. She denied any chest pain, short of breath, palpitation, lightheadedness, headache, chills, fever, abdominal pain, vomiting, loss of consciousness, fall, hematemesis, hematochezia and dysuria. She reported that patient is getting chemotherapy after every 2 weeks. She also reported that patient is following his vice chancellor regularly. Patient also following his qa tester as he is having end-stage renal disease on peritoneal dialysis. He is scheduled for dialysis tonight. Patient was diagnosed with multiple myeloma 3 years back and he was diagnosed with A. fib in 2017. ED course: Vitals: Temperature 99.7, pulse 78, respiratory rate 16, blood pressure 64/34, oxygen saturation 92% at room air. Labs; WBC count 8.6, hemoglobin 7.3, hematocrit 21.6, platelet count 142, sodium 139, potassium 3.8, BUN 66, creatinine 12.2, anion gap 23, BUNs/creatinine ratio 5.4, glucose 122, calcium 8.9, AST 19, ALT 24, troponin 0.98 Patient received a bolus of 2L IV normal saline in ED his urine culture was obtained in ED, body fluid cultures were obtained in ED Allergies/Medications Allergies: Coded Allergies: NO KNOWN ALLERGIES (06/29/16) Home Med list Acyclovir 200 MG CAPSULE 1 CAP PO DAILY SHINGLE PREVENTION (Reported) Apixaban (Eliquis) 2.5 MG TABLET 1 TAB PO BID BLOOD THINNER (Reported) Carvedilol 3.125 MG TABLET 1 TAB PO BID BLOOD PRESSURE Lubiprostone (Amitiza) 24 MCG CAPSULE 1 CAP PO BID GI (Reported) Magnesium Oxide 400 MG TABLET 1 TAB PO DAILY HYPOMAGNESEMIA Oxycodone HCl 10 MG TABLET 1-2 TAB PO Q4-6H PRN PAIN (Reported) Oxycodone HCl (Oxycodone HCl ER) 20 MG TAB.ER.12H 1 TAB PO BID PAIN (Reported ) Prochlorperazine Maleate 10 MG TABLET 1 TAB PO Q6 PRN N/V (Reported) Sevelamer Carbonate (Renvela) 800 MG TABLET 4 TAB PO WM KIDNEYS (Reported) Sevelamer Carbonate (Renvela) 800 MG TABLET 2 TAB PO TID PRN KIDNEYS ( Reported) Vit B Cmplx 3/FA/Vit C/Biotin (Nephro-Nola Rx Tablet) 1 MG-60 MG-300 MCG TABLET 1 TAB PO DAILY SUPPLEMENT (Reported) Past History Travel History Traveled to [place] past 21 day No Medical History Neurological: NONE EENT: NONE Cardiovascular: hypertension Respiratory: NONE Gastrointestinal: APPENDECTOMY Renal: END-STAGE RENAL DISEASE ON PERITONEAL Musculoskeletal: chronic back pain, osteoporosis Psychiatric: NONE Endocrine: NONE Blood Disorders: MULTIPLE MYELOMA Cancer(s): MULTIPLE MYELOMA History of MRSA: No History of VRE: No History of CDIFF: No Influenza Vaccine: 03/17/16 Surgical History Surgical History: non-contributory Past Family/Social History Family History Relations & Conditions if any Relation not specified for: FH: colon cancer Psychosocial History Services at Home: None Smoking Status: Never Smoked ETOH Use: denies use Review of Systems Review of Systems Constitutional: Reports: weakness. Denies: chills, fever. EENTM: Reports: no symptoms. Cardiovascular: Denies: chest pain, orthopena, palpitations. Respiratory: Denies: cough, short of breath, sputum production. GI: Reports: no symptoms. Genitourinary: Reports: no symptoms. Musculoskeletal: Reports: no symptoms. Neurological/Psychological: Reports: confusion. Exam & Diagnostic Data Last 24 Hrs of Vital Signs/I&O Vital Signs Date Time Temp Pulse Resp B/P B/P Pulse O2 O2 Flow FiO2 Mean Ox Delivery Rate 10/25 1245 98.0 100 16 76/52 97 Nasal 2.0L Cannula 10/25 1212 97.8 101 16 96/68 96 Nasal 2.0L Cannula 10/25 1127 106 16 90/61 96 Nasal 2.0L Cannula 10/25 1028 112 20 88/58 10/25 1005 111 20 80/52 10/25 0932 99.7 78 16 64/34 92 Room Air Intake & Output 10/25 1600 10/25 0800 10/25 0000 Intake Total 1000 Output Total Balance 1000 Intake, IV 1000 Patient 150 lb Weight Weight Standing Scale Measurement Method Physical Exam General Appearance Alert, Oriented X3, Cooperative Skin No Rashes Skin Temp/Moisture Exam: Warm/Dry Sepsis Skin Exam (color): Normal for Ethnicity HEENT Atraumatic, PERRLA, EOMI Neck Supple Cardiovascular Normal S1, Normal S2 Lungs B/L crackles Abdomen Soft, No Tenderness, Catheter for peritoneal dialysis on his belly. Neurological Normal Speech, Strength at 5/5 X4 Ext, Normal Tone Extremities No Edema Assessment/Plan Assessment: 66 YO M non smoker with PMH of multiple myeloma status post chemotherapy, A.fib on eliquis, ESRD on peritoneal dialysis, hypertension, chronic back pain and osteoporosis brought to ED by his with chief complaint of having lethargic and confusion for last 4-5 days. We will keep the patient under observation on telemetry floor for further evaluation of elevated troponin and hypotension. Hypovolemic hypertension: -Probably due to dehydration as patient was not taking in enough fluids by mouth. -Continue IV hydration with normal saline. -Monitor his vitals -Monitor input and output -No antihypertensive medications until his blood pressure came back to normal. Elevated troponin: -Multifactorial probably due to his anemia and end-stage renal disease. -Serial Trop and EKG to rule out any ischemic cardiac injury -Cardiology consult -Echocardiogram in a.m. Anemia: -Probably due to end-stage renal disease and multiple myeloma on chemotherapy. -Hb above 7 -We will transfuse him if Hb drop below 7 -Monitor H&H End-stage renal disease on peritoneal dialysis: -Patient having elevated anion gap due to metabolic acidosis secondary to end- stage renal disease. -Patient will get his scheduled dialysis -Monitor input and output -Nephrology consult -Continue Sevelamer History of multiple myeloma: -Continue chemotherapy -Oncology consult History of A. fib: -Continue Eliquis History of hypertension: -Hold his antihypertensive medication continue his blood pressure came back to normal. Prophylaxis from herpes zoster infection: -Incision patient is immunocompromised so we'll continue his herpes zoster prophylaxis. -Continue acyclovir History of Chronic back pain: -Continue her pain medication -Follow pain pathway DVT prophylaxis: -Mechanical and patient is already on Eliquis CODE STATUS: Full code As Ranked By This Provider Problem List: 1. Hypotension Qualifiers Hypotension type: unspecified hypotension type Qualified Code: I95.9 - Hypotension, unspecified 2. Elevated troponin Core Measures/Misc (04/02) Acute Coronary Syndrome ACS Diagnosis: No Congestive Heart Failure Congestive Heart Failure Diagnosis No Cerebrovascular Accident CVA/TIA Diagnosis: No VTE (View Protocol) VTE Risk Factors Age>40 No Mechanical VTE Prophylaxis d/t N/A MechProphylax Ordered No VTE Pharm Prophylaxis d/t NA PharmProphylax ordered Sepsis (View protocol) Sepsis Present: No Jordan Rizo MD 10/25/17 1530: Resident Review Statement Resident Statement: examined this patient, discussed with international account executive, agreed with international account executive, discussed with family, reviewed EMR data (avail) Other Findings: History of Present Illness 66-year-old man with past medical history of multiple myeloma on weekly chemotherapy, atrial fibrillation on eliquis, ESRD on peritoneal dialysis, hypertension, hyperlipidemia, chronic back pain, and osteoarthritis brought in for evaluation by his for confusion and decreased oral intake. Patient reportedly contacted the office of their oncologist Dr. Duncan over the weekend for his persistent/worsening confusion whom recommended ringing the patient to the ER on Monday. He was brought to the ED this morning for confusion and found to have low blood pressure for which he was given intravenous fluid resuscitation. Presently patient reportedly feels fine and has no complaints. He is awake, alert, and oriented to person, place, and time. He admits to persistence of his chronic problems such as back pain. Review of systems He otherwise denies any headache, fever, chills, lightheadedness, dizziness, blurred/double vision, chest pain, palpitations, heartburn, shortness of breath, cough, nausea, vomiting, diarrhea. Social history Denies having ever smoked tobacco or drink alcohol. Independent in all ADLs/ IADLs. Objective -Vitals: Temperature 98.0-99.7, HR 78-112, RR 16-20, SBP 64-96, O2 92-97% on 2.0 L via nasal cannula -Physical exam: -Gen.: Well-developed, thin middle-aged man in no acute distress -HEENT: NCAT, PERRLA, EOMI, dry oral mucosa, nasal cannula in place -Neck: Supple, flat neck veins, trachea midline, no accessory respiratory muscle use -CARD: Normal S1/S2 w/o m/g/r; RRR -PULM: Scant left lower lobe crackles -ABD: Soft, NT, ND, BS+; peritoneal dialysis catheter in place -NEURO: Awake and alert, AOx3, CN II-XII grossly intact -EXT: normal pulses, no cyanosis or edema Labs/Imaging/Studies -CBC: WBC 8.6, hemoglobin 7.3, hematocrit 21.6, platelet 142 -BMP: Sodium 139, potassium 3.8, chloride 92, CO2 24, urea 66, creatinine 12.2, anion gap 23, glucose 122 -LFT: Within normal limits -Miscellaneous: Troponin 0.98, TSH 2.24, EtOH <10 -EKG: Sinus tachycardia with PACs -CXR: Hazy opacity in the right upper lobe and left lung base -CT head without IV contrast: No acute intracranial pathology -Echocardiogram 09/02/16: LVEF 55% without regional wall motion abnormalities Assessment 66-year-old man with multiple medical problems significant for multiple myeloma on chemotherapy and ESRD on peritoneal dialysis seen for evaluation of confusion found to have low blood pressure. Collateral information obtained from patient's reveals that patient has had poor oral intake of food and water the past few weeks. Patient's systolic blood pressure dropped to 64 but quickly improved with gentle intravenous fluid resuscitation. Patient's mentation dramatically improved with fluids and he otherwise denies any active complaints. Troponin was found to be elevated to 0.98 in the context of ESRD and hypotension suggestive of a supply/demand mismatch with poor renal clearance. Patient is to be placed under observation on the telemetry floor and given further intravenous fluids for blood pressure support and continue with peritoneal dialysis. Problem List -Hypotension, most likely due to dehydration -Elevated Troponin -Acute and chronic anemia -Anion gap metabolic acidosis -Confusion, altered mental status; improved -Atrial Fibrillation, on Eliquis -ESRD on Peritoneal Dialysis -Multiple Myeloma on Weekly Chemo -Hypertension -Hyperlipidemia -Chronic back pain -Osteoarthritis Plan -Telemetry observation -Strict I & Os -TRC with Nebs PRN -Guaiac all stools -Supplemental oxygen, goal > 92%, taper as tolerated -Peritoneal dialysis per nephrology -Give IVF to maintain MAP > 65 -Hold carvedilol for hypotension -Continue home meds: -Oncology consult for multiple myeloma management -Nephrology consult for peritoneal dialysis -Cardiology consult for elevated troponin -Trend troponin / EKG until peak or three negative sets -Check lactic acid, trend if elevated -Transfuse PRBC to hemoglobin >8 when necessary -Obtain echocardiogram -Pain control with oxycontin/oxycodone -Renal Dialysis Diet -DVT PPx with Eliquis -FULL CODE Sandip KRISHNAMURTHY,[facility] 10/25/17 2104: Attending MD Review Statement Attending Statement Attending MD Statement: examined this patient, discuss w/resident/PA/ACQUISITION CONSULTANT, agreed w/resident/PA/ACQUISITION CONSULTANT, reviewed EMR data (avail)
--- NOTE | 2017-10-25 14:41 | Cons- Cardiology ---
General Information and HPI Consulting Request Date of Consult: 10/25/17 Requested By: Dr. Waters Reason for Consult: elevated troponin Source of Information: patient, old records History of Present Illness: This is a very pleasant 66-year-old male with a past medical history of paroxysmal atrial fibrillation with implantable loop recorder in place for aFib burden monitoring and anticoagulated with low-dose eliquis, multiple myeloma, history of hypertension, and end-stage renal disease on peritoneal dialysis who was sent to a [facility] as he was having some reported decrease mental status; was also noted to be hypotensive. On my interview with the patient in the emergency room he reported feeling well without any chest pain, dyspnea, shortness of breath, or palpitations. He also denied any cough, subjective fever, or chills. He was noted to have elevated troponin on lab work. Allergies/Medications Allergies: Coded Allergies: NO KNOWN ALLERGIES (06/29/16) Home Med List: Acyclovir 200 MG CAPSULE 1 CAP PO DAILY SHINGLE PREVENTION (Reported) Apixaban (Eliquis) 2.5 MG TABLET 1 TAB PO BID BLOOD THINNER (Reported) Carvedilol 3.125 MG TABLET 1 TAB PO BID BLOOD PRESSURE Lubiprostone (Amitiza) 24 MCG CAPSULE 1 CAP PO BID GI (Reported) Magnesium Oxide 400 MG TABLET 1 TAB PO DAILY HYPOMAGNESEMIA Oxycodone HCl 10 MG TABLET 1-2 TAB PO Q4-6H PRN PAIN (Reported) Oxycodone HCl (Oxycodone HCl ER) 20 MG TAB.ER.12H 1 TAB PO BID PAIN (Reported ) Prochlorperazine Maleate 10 MG TABLET 1 TAB PO Q6 PRN N/V (Reported) Sevelamer Carbonate (Renvela) 800 MG TABLET 4 TAB PO WM KIDNEYS (Reported) Sevelamer Carbonate (Renvela) 800 MG TABLET 2 TAB PO TID PRN KIDNEYS ( Reported) Vit B Cmplx 3/FA/Vit C/Biotin (Nephro-Nola Rx Tablet) 1 MG-60 MG-300 MCG TABLET 1 TAB PO DAILY SUPPLEMENT (Reported) Current Medications: Current Medications Sig/Christie Start time Last Medication Dose Route Stop Time Status Admin Acetaminophen 0 .STK-MED ONE 10/25 1147 DC IV Acetaminophen 500 MG ONCE ONE 10/25 1130 DC 10/25 IV 10/25 1131 1143 Sodium Chloride 1,000 ML BOLUS ONE 10/25 1015 DC 10/25 IV 10/25 1214 1010 Review of Systems Review of Systems: as per above HPI. The remainder of a 10 point review of systems was reviewed and was otherwise negative. Past History Travel History Traveled to [place] past 21 day No Medical History Neurological: NONE EENT: NONE Cardiovascular: hypertension Respiratory: NONE Gastrointestinal: APPENDECTOMY Renal: END-STAGE RENAL DISEASE ON PERITONEAL Musculoskeletal: chronic back pain, osteoporosis Psychiatric: NONE Endocrine: NONE Blood Disorders: MULTIPLE MYELOMA Cancer(s): MULTIPLE MYELOMA Surgical History Surgical History: non-contributory Family History Relations & Conditions If Any: Relation not specified for: FH: colon cancer Psychosocial History Services at Home: None Smoking Status: Never Smoked ETOH Use: denies use Exam & Diagnostic Data Vital Signs and I&O Vital Signs Date Time Temp Pulse Resp B/P B/P Pulse O2 O2 Flow FiO2 Mean Ox Delivery Rate 10/25 1339 93 16 76/53 97 Nasal 2.0L Cannula 10/25 1245 98.0 100 16 76/52 97 Nasal 2.0L Cannula 10/25 1212 97.8 101 16 96/68 96 Nasal 2.0L Cannula 10/25 1127 106 16 90/61 96 Nasal 2.0L Cannula 10/25 1028 112 20 88/58 10/25 1005 111 20 80/52 10/25 0932 99.7 78 16 64/34 92 Room Air Intake & Output 10/25 1600 10/25 0800 10/25 0000 10/24 1600 10/24 0800 10/24 0000 Intake Total 1000 Output Total Balance 1000 Intake, IV 1000 Patient 150 lb Weight Weight Standing Scale Measurement Method Physical Exam General Appearance: no apparent distress, alert, comfortable Head: atraumatic Eyes: Bilateral: EOMI. Neck: supple Respiratory: normal breath sounds, no respiratory distress Cardiovascular: regular rate/rhythm Gastrointestinal: soft, non-tender Extremities: normal capillary refill Neurologic/Psych: oriented x 3 Labs/Tyler Results: Laboratory Tests 10/25 10/25 1002 0958 Chemistry Sodium (137 - 145 mmol/L) 139 Potassium (3.5 - 5.1 mmol/L) 3.8 Chloride (98 - 107 mmol/L) 92 L Carbon Dioxide (22 - 30 mmol/L) 24 Anion Gap (5 - 16) 23 H BUN (9 - 20 mg/dL) 66 H Creatinine (0.7 - 1.2 mg/dL) 12.2 *H Estimated GFR (>60 ml/min) 4 L BUN/Creatinine Ratio (7 - 25 %) 5.4 L Glucose (65 - 99 mg/dL) 122 H Calcium (8.4 - 10.2 mg/dL) 8.9 Total Bilirubin (0.2 - 1.3 mg/dL) 0.7 AST (17 - 59 U/L) 19 ALT (21 - 72 U/L) 24 Alkaline Phosphatase (< 127 U/L) 58 Troponin I (<0.11 ng/ml) 0.98 *H Total Protein (6.3 - 8.2 g/dL) 7.3 Albumin (3.5 - 5.0 g/dL) 3.2 L Globulin (1.9 - 4.2 gm/dL) 4.1 Albumin/Globulin Ratio (1.1 - 2.2 %) 0.8 L TSH &T3 &Free T4 Intrp (0.27 - 4.20 uIU/mL) 2.240 Hematology CBC w Diff MAN DIFF ORDERED WBC (4.8 - 10.8 /CUMM) 8.6 RBC (4.70 - 6.10 /CUMM) 2.20 L Hgb (14.0 - 18.0 G/DL) 7.3 *L Hct (42 - 52 %) 21.6 L MCV (80.0 - 94.0 FL) 98.2 H MCH (27.0 - 31.0 PG) 33.1 H MCHC (33.0 - 37.0 G/DL) 33.7 RDW (11.5 - 14.5 %) 17.5 H Plt Count (130 - 400 /CUMM) 142 MPV (7.4 - 10.4 FL) 8.4 Gran % (42.2 - 75.2 %) 91.4 H Lymphocytes % (20.5 - 51.1 %) 3.3 L Monocytes % (1.7 - 9.3 %) 5.2 Eosinophils % (0 - 5 %) 0 Basophils % (0.0 - 2.0 %) 0.1 Absolute Granulocytes (1.4 - 6.5 /CUMM) 7.9 H Absolute Lymphocytes (1.2 - 3.4 /CUMM) 0.3 L Absolute Monocytes (0.10 - 0.60 /CUMM) 0.4 Absolute Eosinophils (0.0 - 0.7 /CUMM) 0 Absolute Basophils (0.0 - 0.2 /CUMM) 0 Platelet Estimate (ADEQUATE) VERIFIED BY SMEAR Polychromasia 1+ Anisocytosis 1+ Toxicology Methadone Screen Cancelled Barbiturate Screen Cancelled Ur Phencyclidine Scrn Cancelled Amphetamines Screen Cancelled U Benzodiazepines Scrn Cancelled Urine Cocaine Screen Cancelled Urine Cannabis Screen Cancelled Serum Alcohol (<10 MG/DL) < 10.0 Urines Urine Color Cancelled Urine Clarity Cancelled Urine pH Cancelled Ur Specific [place] Cancelled Urine Protein Cancelled Urine Ketones Cancelled Urine Nitrite Cancelled Urine Bilirubin Cancelled Urine Urobilinogen Cancelled Ur Leukocyte Esterase Cancelled Ur Microscopic Cancelled Urine Hemoglobin Cancelled Urine Glucose Cancelled Diagnostic Data EKG Results Tracing was personally reviewed and shows a sinus tachycardia at 108 beats per minute with normal r-wave progression CXR Results Hazy opacities in the right upper lung and left base given low lung volumes and distribution are favored to represent atelectasis. Other Results Normal CT scan of the head. No evidence acute territorial infarct or hemorrhage. Assessment/Plan Assessment/Plan 1. Hypotension 2. multiple myeloma 3. anemia 4. paroxysmal atrial fibrillation on low-dose eliquis and with implantable loop recorder 5. end-stage renal disease on peritoneal dialysis 6. history of hypertension on outpatient low-dose coreg On my interview with the patient emergency Room he was actually feeling quite well but blood pressure remained borderline; suspect the troponin elevation is due to hypotension with end-stage renal disease but would obtain serial troponins and monitor on telemetry. would obtain an echocardiogram. given the anemia may benefit from stool guaiac although the anemia may be due to the multiple myeloma and end-stage renal disease. hold outpatient carvedilol and monitor for any evidence of sepsis; agree with volume resuscitation while monitoring volume status. Agustín Cosby MD [facility] Consult Acknowledgment - Thank you for your consult request.
[2017-10-25 20:46] VITALS: BP 98/70
--- NOTE | 2017-10-25 21:16 | ECHOCARDIOGRAM REPORT ---
JUAN A DU Age: 66 : 1950 Gender: M Exam Date: 10/25/2017 20:00 Exam Location: 1 [facility] Ht (in): 68 Wt (lb): 150 BSA: 1.81 BP: 90 / 64 Ordering Physician: Jordan Rizo MD Referring Physician: Les Cosby M.D. Technologist: Nayla Mora RDCS Room Number: [id number] Indications: HYPOTENSION Rhythm: Sinus Technical Quality: poor FINDINGS Left Ventricle Off angle views. Normal global left ventricular size, wall thickness, systolic function with no obvious regional wall motion abnormalities. Normal left ventricular ejection fraction estimated at 65-70%. Right Ventricle Normal right ventricular size and function. Right Atrium Right atrium not well visualized, grossly normal. Left Atrium Left atrium not well visualized, grossly normal. Mitral Valve Mild mitral annular calcification. Trace to mild mitral regurgitation. Aortic Valve Diffuse thickening (sclerosis) of the aortic valve cusps without reduced excursion. Tricuspid Valve Tricuspid valve not well visualized, grossly normal. Moderate tricuspid regurgitation. Right ventricular systolic pressure estimated to be elevated at 38 mmHg. Pulmonic Valve Pulmonic valve not well visualized, grossly normal. Pericardium No pericardial effusion. Great Vessels Normal size aortic root. CONCLUSIONS Suboptimal views. Hyperdynamic left ventricular systolic function. Normal Right ventricular systolic function. No significant valvular abnormalities noted Raul Collins M.D. (Electronically Signed) Final Date: 25 October 2017 21:15 MEASUREMENTS (Male / Female) Normal Values 2D ECHO LV Diastolic Diameter PLAX 2.4 cm 4.2 - 5.9 / 3.9 - 5.3 cm LV Systolic Diameter PLAX 1.6 cm 2.1 - 4.0 cm LV Fractional Shortening PLAX 33.3 % 25 - 46 % LV Ejection Fraction 2D Teich 64.4 % IVS Diastolic Thickness 1.0 cm LVPW Diastolic Thickness 1.0 cm LV Relative Wall Thickness 0.8 RV Internal Dim ED PLAX 2.1 cm 1.9 - 3.8 cm LVOT Diameter 1.9 cm Aortic Root Diameter 3.4 cm LA Systolic Diameter LX 3.5 cm 3.0 - 4.0 / 2.7 - 3.8 cm LA Volume 49.0 cm 18 - 58 / 22 - 52 cm DOPPLER AV Peak Velocity 165.0 cm/s AV Peak Gradient 10.9 mmHg AV Mean Velocity 124.0 cm/s AV Mean Gradient 7.0 mmHg AV Velocity Time Integral 27.2 cm LVOT Peak Velocity 142.0 cm/s LVOT Peak Gradient 8.1 mmHg LVOT Mean Velocity 97.5 cm/s LVOT Mean Gradient 4.0 mmHg LVOT Velocity Time Integral 21.6 cm LVOT Stroke Volume 61.2 cm AV Area Cont Eq vti 2.3 cm AV Area Cont Eq pk 2.4 cm MV Peak Velocity 139.0 cm/s MV Peak Gradient 7.7 mmHg MV Mean Velocity 71.7 cm/s MV Mean Gradient 3.0 mmHg Mitral E Point Velocity 94.8 cm/s Mitral A Point Velocity 128.0 cm/s Mitral E to A Ratio 0.7 MV PHT Velocity 110.0 cm/s MV Deceleration [place] 520.0 cm/s MV Pressure Half Time 63.5 ms MV Area PHT 3.5 cm MV Deceleration Time 145.0 ms TR Peak Velocity 286.0 cm/s TR Peak Gradient 32.7 mmHg Right Atrial Pressure 5.0 mmHg Pulmonary Artery Systolic Pressu 37.7 mmHg Right Ventricular Systolic Press 37.7 mmHg PV Peak Velocity 85.8 cm/s PV Peak Gradient 2.9 mmHg PV Mean Velocity 62.2 cm/s PV Mean Gradient 2.0 mmHg PV Velocity Time Integral 11.5 cm LV E' Lateral Velocity 14.9 cm/s Mitral E to LV E' Lateral Ratio 6.4 LV E' Septal Velocity 8.2 cm/s Mitral E to LV E' Septal Ratio 11.6
[2017-10-25 23:14] LABS: ABSOLUTE BASOPHIL COUNT 0 /CUMM (0.0-0.2); ABSOLUTE EOSINOPHIL COUNT 0 /CUMM (0.0-0.7); ABSOLUTE LYMPH COUNT 0.2 /CUMM (1.2-3.4); BASOPHIL % 0 % (0.0-2.0); MEAN CORPUSCULAR VOLUME 99.6 FL (80.0-94.0)
[2017-10-25 23:16] LABS: ABSOLUTE GRANULOCYTE CT 5.4 /CUMM (1.4-6.5); ABSOLUTE MONOCYTE COUNT 0.3 /CUMM (0.10-0.60); EOSINOPHIL % 0 % (0-5); GRANULOCYTE % 92.3 % (42.2-75.2); MEAN CORPUSCULAR HGB 33.2 PG (27.0-31.0); MEAN CORPUSCULAR HGB CONC 33.3 G/DL (33.0-37.0); MEAN PLATELET VOLUME 8.4 FL (7.4-10.4); PLATELET COUNT 121 /CUMM (130-400); RBC DISTRIBUTION WIDTH 17.9 % (11.5-14.5); RED BLOOD CELL CT 1.93 /CUMM (4.70-6.10); WHITE BLOOD CELL COUNT 5.9 /CUMM (4.8-10.8)
[2017-10-25 23:19] VITALS: BP 104/68
[2017-10-25 23:38] LABS: HEMATOCRIT 19.2 % (42-52)
[2017-10-26 06:38] VITALS: BP 88/60
--- NOTE | 2017-10-26 07:30 | PN-Observation ---
Observation Note Observation Note _ I have personally examined JUAN A DU. him disposition is uncertain at this time. Before a determination can be made, he requires continued observation for the following reasons for hypovolemic hypotension and Type 2 [place] []. Assessment/Plan Medical Assessment: 66 YO M non smoker with PMH of multiple myeloma status post chemotherapy, A.fib on eliquis, ESRD on peritoneal dialysis, hypertension, chronic back pain and osteoporosis brought to ED by his with chief complaint of having lethargic and confusion for last 4-5 days. Patient has hypovolemic hypotension probably due to dehydration.Type 2 [place] probably due to his hypovolemia, anemia in the setting of end-stage renal disease. we will change it to follow admission. Problem List: 1. Hypotension Qualifiers Hypotension type: unspecified hypotension type Qualified Code: I95.9 - Hypotension, unspecified 2. Elevated troponin Plan: Hypovolemic hypertension: -Probably due to dehydration as patient was not taking in enough fluids by mouth. -Continue IV hydration with normal saline. -Morning cortisole level as patient recently got chemotherapy for MM. -Monitor his vitals -Monitor input and output -No antihypertensive medications until his blood pressure came back to normal. -Low threshold for ICU transfer. GRam +ve bacteremia: -Blood cultures are positive for gram positive cocci -Patient was started prophylactically on IV ceftriaxone and vancomycin -CT scan chest to rule out pneumonia and CT scan abdomen/pelvis w/o contarst for possible peritonitis. -ID consult -We will follow CSF analysis to rule out meningitis. Elevated troponin: -Multifactorial probably due to his anemia and end-stage renal disease. -Serial Trop and EKG to rule out any ischemic cardiac injury -Cardiology consult -Echocardiogram in a.m. Anemia: -Probably due to end-stage renal disease and multiple myeloma on chemotherapy. -Hb above 7 -We transfused 1 unit but Hb is 6.5 we will transfuse 1 more unit -Monitor H&H End-stage renal disease on peritoneal dialysis: -Patient having elevated anion gap due to metabolic acidosis secondary to end- stage renal disease. -Patient will get his scheduled dialysis -Monitor input and output -Nephrology consult -Continue Sevelamer History of multiple myeloma: -Continue chemotherapy -Oncology consult History of A. fib: -Continue Eliquis History of hypertension: -Hold his antihypertensive medication continue his blood pressure came back to normal. Prophylaxis from herpes zoster infection: -Incision patient is immunocompromised so we'll continue his herpes zoster prophylaxis. -Continue acyclovir History of Chronic back pain: -Continue her pain medication -Follow pain pathway DVT prophylaxis: -Mechanical and patient is already on Eliquis CODE STATUS: Full code Subjective Follow-up For: Hypovolemic hypotension TYPE 2 [place] Gram +ve bacteremia Tele-Events Since Last Visit: Sinus rhythm with heart rate between [id number] Subjective: Patient had temperature last night. MAXIMUM TEMPERATURE 101.9. Seen and examined this morning. Patient reported having shoulder and back pain. Patient denied any palpitation, chest pain, shortness of breath, nausea, vomiting, abdominal pain and dysuria. Reported cough. Review of Systems Constitutional: Reports: see HPI. EENTM: Reports: no symptoms. Cardiovascular: Denies: chest pain, palpitations. Respiratory: Reports: cough. Denies: short of breath, sputum production. Gastrointestinal: Denies: abdominal pain, constipation, diarrhea, nausea. Genitourinary: Reports: no symptoms. Musculoskeletal: Reports: no symptoms. Neurological/Psychological: Reports: no symptoms. Objective Last 24 Hrs of Vital Signs/I&O Vital Signs Date Time Temp Pulse Resp B/P B/P Pulse O2 O2 Flow FiO2 Mean Ox Delivery Rate 10/26 0638 101.2 101 20 88/60 100 Nasal Cannula 10/26 0200 101.9 10/26 0114 100.8 10/26 0000 Nasal 2.0L Cannula 10/25 2319 101.7 114 18 104/68 95 Room Air 10/25 2119 Nasal 2.0L Cannula 10/25 2046 100.3 113 20 98/70 91 Nasal 2.0L Cannula 10/25 1902 98.0 106 16 91/66 95 Nasal 2.0L Cannula 10/25 1745 100 16 90/64 97 Nasal 2.0L Cannula 10/25 1623 94 16 84/53 97 Nasal 2.0L Cannula 10/25 1557 98.2 95 16 78/50 97 Non 2.0L ReBreather 10/25 1440 98.2 89 16 70/49 97 Nasal 2.0L Cannula 10/25 1339 93 16 76/53 97 Nasal 2.0L Cannula 10/25 1245 98.0 100 16 76/52 97 Nasal 2.0L Cannula 10/25 1212 97.8 101 16 96/68 96 Nasal 2.0L Cannula 10/25 1127 106 16 90/61 96 Nasal 2.0L Cannula 10/25 1028 112 20 88/58 10/25 1005 111 20 80/52 10/25 0932 99.7 78 16 64/34 92 Room Air Intake & Output 10/26 1600 10/26 0800 10/26 0000 Intake Total 350 Output Total -300 900 Balance 650 -900 Intake, IV 350 Output, -300 900 Dialysate Patient 161 lb Weight Weight Bed scale Measurement Method Physical Exam General Appearance: Alert, Oriented X3, Cooperative Skin: No Rashes Skin Temp/Moisture Exam: Warm/Dry Sepsis Skin Exam (color): Normal for Ethnicity HEENT: Atraumatic, PERRLA, EOMI Neck: Supple Cardiovascular: Normal S1, Normal S2 Lungs: b/l crepitus at bases Abdomen: Soft, No Tenderness Neurological: Normal Speech, Normal Tone Extremities: No Edema
--- NOTE | 2017-10-26 07:41 | Cons- Hematology ---
General Information and HPI Consulting Request Date of Consult: 10/26/17 Requested By: Sherley Oropeza MD History of Present Illness: 66-year-old man well known to me with multiple myeloma. His initial presentation is end-stage renal disease requiring dialysis. He now is on peritoneal dialysis. He has been treated successfully with cybor d and Aranesp. Recent globulin studies have remained stable. Patient also has had significant back pain throughout his course. Previous MRIs have not feel significant disease progression. Currently the patient is admitted with confusion, hypotension and now fever. Patient also not complains of significant diffuse back pain. Patient denies headaches or dizziness. Patient denies productive cough or chest pain. Patient denies hemoptysis. Patient denies nausea vomiting or abdominal pain. Patient denies dysuria. She denies focal neurologic deficit Allergies/Medications Allergies: Coded Allergies: NO KNOWN ALLERGIES (06/29/16) Home Med List: Acyclovir 200 MG CAPSULE 1 CAP PO DAILY SHINGLE PREVENTION (Reported) Apixaban (Eliquis) 2.5 MG TABLET 1 TAB PO BID BLOOD THINNER (Reported) Carvedilol 3.125 MG TABLET 1 TAB PO BID BLOOD PRESSURE Lubiprostone (Amitiza) 24 MCG CAPSULE 1 CAP PO BID GI (Reported) Magnesium Oxide 400 MG TABLET 1 TAB PO DAILY HYPOMAGNESEMIA Oxycodone HCl 10 MG TABLET 1-2 TAB PO Q4-6H PRN PAIN (Reported) Oxycodone HCl (Oxycodone HCl ER) 20 MG TAB.ER.12H 1 TAB PO BID PAIN (Reported ) Prochlorperazine Maleate 10 MG TABLET 1 TAB PO Q6 PRN N/V (Reported) Sevelamer Carbonate (Renvela) 800 MG TABLET 4 TAB PO WM KIDNEYS (Reported) Sevelamer Carbonate (Renvela) 800 MG TABLET 2 TAB PO TID PRN KIDNEYS ( Reported) Vit B Cmplx 3/FA/Vit C/Biotin (Nephro-Nola Rx Tablet) 1 MG-60 MG-300 MCG TABLET 1 TAB PO DAILY SUPPLEMENT (Reported) Current Medications: Current Medications Sig/Christie Start time Last Medication Dose Route Stop Time Status Admin Acetaminophen 500 MG ONCE ONE 10/26 0045 DC 10/26 PO 10/26 0046 0114 Acetaminophen 0 .STK-MED ONE 10/25 1147 DC IV Acetaminophen 500 MG ONCE ONE 10/25 1130 DC 10/25 IV 10/25 1131 1143 Acyclovir 200 MG DAILY 10/26 1000 AC PO Apixaban 2.5 MG BID 10/25 2199 AC 10/25 PO 2226 Lubiprostone 24 MCG BID 10/25 2200 AC 10/25 PO 2226 Magnesium Oxide 400 MG DAILY 10/25 1611 AC 10/25 PO 1647 Multivitamins 1 TAB DAILY 10/26 1000 AC PO Oxycodone HCl 20 MG 0900,2100 10/26 0900 AC PO Oxycodone HCl 20 MG Q6P PRN 10/25 2315 CAN PO Oxycodone HCl 10 MG Q4-6 PRN PRN 10/25 2315 AC PO Oxycodone HCl 20 MG BID 10/25 2199 DC 10/25 PO 2226 Oxycodone HCl 0 .STK-MED ONE 10/25 1648 DC PO Oxycodone HCl 10 MG Q6 PRN 10/25 1615 DC 10/25 PO 1647 Prochlorperazine 10 MG Q6 PRN 10/25 1615 AC PO Sevelamer Carbonate 3,200 MG WM 10/25 1700 AC 10/25 PO 1647 Sevelamer Carbonate 1,600 MG TID PRN 10/25 1615 AC PO Sodium Chloride 1,000 ML BOLUS ONE 10/25 1515 DC 10/25 IV 10/25 1614 1600 Sodium Chloride 1,000 ML BOLUS ONE 10/25 1015 DC 10/25 IV 10/25 1214 1010 Review of Systems Review of Systems: Review of systems-see above Past History Travel History Traveled to [place] past 21 day No Medical History Blood Transfusion Hx: Yes Neurological: NONE EENT: NONE Cardiovascular: hypertension Respiratory: NONE Gastrointestinal: APPENDECTOMY Renal: END-STAGE RENAL DISEASE ON PERITONEAL Musculoskeletal: chronic back pain, osteoporosis Psychiatric: NONE Endocrine: NONE Blood Disorders: MULTIPLE MYELOMA Cancer(s): MULTIPLE MYELOMA Surgical History Surgical History: non-contributory Family History Relations & Conditions If Any: Relation not specified for: FH: colon cancer Psychosocial History Services at Home: None Smoking Status: Never Smoked ETOH Use: denies use Exam & Diagnostic Data Vital Signs and I&O Vital Signs Date Time Temp Pulse Resp B/P B/P Pulse O2 O2 Flow FiO2 Mean Ox Delivery Rate 10/26 0638 101.2 101 20 88/60 100 Nasal Cannula 10/26 0200 101.9 10/26 0114 100.8 10/26 0000 Nasal 2.0L Cannula 10/25 2319 101.7 114 18 104/68 95 Room Air 10/25 2119 Nasal 2.0L Cannula 10/25 2046 100.3 113 20 98/70 91 Nasal 2.0L Cannula 10/25 1902 98.0 106 16 91/66 95 Nasal 2.0L Cannula 10/25 1745 100 16 90/64 97 Nasal 2.0L Cannula 10/25 1623 94 16 84/53 97 Nasal 2.0L Cannula 10/25 1557 98.2 95 16 78/50 97 Non 2.0L ReBreather 10/25 1440 98.2 89 16 70/49 97 Nasal 2.0L Cannula 10/25 1339 93 16 76/53 97 Nasal 2.0L Cannula 10/25 1245 98.0 100 16 76/52 97 Nasal 2.0L Cannula 10/25 1212 97.8 101 16 96/68 96 Nasal 2.0L Cannula 10/25 1127 106 16 90/61 96 Nasal 2.0L Cannula 10/25 1028 112 20 88/58 10/25 1005 111 20 80/52 10/25 0932 99.7 78 16 64/34 92 Room Air Intake & Output 10/26 0800 10/26 0000 10/25 1600 Intake Total 1000 Output Total -300 900 Balance 300 -900 1000 Intake, IV 1000 Output, -300 900 Dialysate Patient 161 lb 150 lb Weight Weight Bed scale Standing Scale Measurement Method Gen.: in NAD ENT: Sclera anicteric Chest: Normal respiratory effort, decreased breath sounds Cor: RRR, no extra sounds Abdomen: Soft, bowel sounds present, no tenderness, no rebound Extremities: Without clubbing, cyanosis, or asymmetric edema Neurology: Awake but slightly confused, no gross deficit Skin: No rashes Last 48 Hours of Lab Results: Laboratory Tests 10/26 10/26 10/26 0600 0600 0000 Chemistry Sodium Pending Potassium Pending Chloride Pending Carbon Dioxide Pending Anion Gap Pending BUN Pending Creatinine Pending BUN/Creatinine Ratio Pending Calcium Pending Phosphorus Pending Magnesium Pending Troponin I Cancelled Pending Hematology CBC w Diff Pending WBC Pending RBC Pending Hgb Pending Hct Pending MCV Pending MCH Pending MCHC Pending RDW Pending Plt Count Pending MPV Pending Lymphocytes (%) 18 % Normal PMNs (%) 45 Misc Hematology Test (%) Other Body Source Fluid WBC (0 - 5 /CUMM) 86 H Fld Total RBCs Counted (0 /CUMM) 24 H 10/25 10/25 2248 1620 Chemistry Lactic Acid (0.7 - 2.1 mmol/L) 1.3 Troponin I (<0.11 ng/ml) 1.28 *H 1.23 *H Hematology CBC w Diff NO MAN DIFF REQ WBC (4.8 - 10.8 /CUMM) 5.9 RBC (4.70 - 6.10 /CUMM) 1.93 L Hgb (14.0 - 18.0 G/DL) 6.4 *L Hct (42 - 52 %) 19.2 *L MCV (80.0 - 94.0 FL) 99.6 H MCH (27.0 - 31.0 PG) 33.2 H MCHC (33.0 - 37.0 G/DL) 33.3 RDW (11.5 - 14.5 %) 17.9 H Plt Count (130 - 400 /CUMM) 121 L MPV (7.4 - 10.4 FL) 8.4 Gran % (42.2 - 75.2 %) 92.3 H Lymphocytes % (20.5 - 51.1 %) 3.4 L Monocytes % (1.7 - 9.3 %) 4.3 Eosinophils % (0 - 5 %) 0 Basophils % (0.0 - 2.0 %) 0 Absolute Granulocytes (1.4 - 6.5 /CUMM) 5.4 Absolute Lymphocytes (1.2 - 3.4 /CUMM) 0.2 L Absolute Monocytes (0.10 - 0.60 /CUMM) 0.3 Absolute Eosinophils (0.0 - 0.7 /CUMM) 0 Absolute Basophils (0.0 - 0.2 /CUMM) 0 10/25 10/25 1002 0958 Chemistry Sodium (137 - 145 mmol/L) 139 Potassium (3.5 - 5.1 mmol/L) 3.8 Chloride (98 - 107 mmol/L) 92 L Carbon Dioxide (22 - 30 mmol/L) 24 Anion Gap (5 - 16) 23 H BUN (9 - 20 mg/dL) 66 H Creatinine (0.7 - 1.2 mg/dL) 12.2 *H Estimated GFR (>60 ml/min) 4 L BUN/Creatinine Ratio (7 - 25 %) 5.4 L Glucose (65 - 99 mg/dL) 122 H Calcium (8.4 - 10.2 mg/dL) 8.9 Total Bilirubin (0.2 - 1.3 mg/dL) 0.7 AST (17 - 59 U/L) 19 ALT (21 - 72 U/L) 24 Alkaline Phosphatase (< 127 U/L) 58 Troponin I (<0.11 ng/ml) 0.98 *H Total Protein (6.3 - 8.2 g/dL) 7.3 Albumin (3.5 - 5.0 g/dL) 3.2 L Globulin (1.9 - 4.2 gm/dL) 4.1 Albumin/Globulin Ratio (1.1 - 2.2 %) 0.8 L TSH &T3 &Free T4 Intrp (0.27 - 4.20 uIU/mL) 2.240 Hematology CBC w Diff MAN DIFF ORDERED WBC (4.8 - 10.8 /CUMM) 8.6 RBC (4.70 - 6.10 /CUMM) 2.20 L Hgb (14.0 - 18.0 G/DL) 7.3 *L Hct (42 - 52 %) 21.6 L MCV (80.0 - 94.0 FL) 98.2 H MCH (27.0 - 31.0 PG) 33.1 H MCHC (33.0 - 37.0 G/DL) 33.7 RDW (11.5 - 14.5 %) 17.5 H Plt Count (130 - 400 /CUMM) 142 MPV (7.4 - 10.4 FL) 8.4 Gran % (42.2 - 75.2 %) 91.4 H Lymphocytes % (20.5 - 51.1 %) 3.3 L Monocytes % (1.7 - 9.3 %) 5.2 Eosinophils % (0 - 5 %) 0 Basophils % (0.0 - 2.0 %) 0.1 Absolute Granulocytes (1.4 - 6.5 /CUMM) 7.9 H Absolute Lymphocytes (1.2 - 3.4 /CUMM) 0.3 L Absolute Monocytes (0.10 - 0.60 /CUMM) 0.4 Absolute Eosinophils (0.0 - 0.7 /CUMM) 0 Absolute Basophils (0.0 - 0.2 /CUMM) 0 Platelet Estimate (ADEQUATE) VERIFIED BY SMEAR Polychromasia 1+ Anisocytosis 1+ Toxicology Methadone Screen Cancelled Barbiturate Screen Cancelled Ur Phencyclidine Scrn Cancelled Amphetamines Screen Cancelled U Benzodiazepines Scrn Cancelled Urine Cocaine Screen Cancelled Urine Cannabis Screen Cancelled Serum Alcohol (<10 MG/DL) < 10.0 Urines Urine Color Cancelled Urine Clarity Cancelled Urine pH Cancelled Ur Specific [place] Cancelled Urine Protein Cancelled Urine Ketones Cancelled Urine Nitrite Cancelled Urine Bilirubin Cancelled Urine Urobilinogen Cancelled Ur Leukocyte Esterase Cancelled Ur Microscopic Cancelled Urine Hemoglobin Cancelled Urine Glucose Cancelled Imaging/Other Studies: [id number] abnormality Recent CT-chest-no acute abnormality Assessment/Plan Assessment: 1. Confusion-this is in the setting of hypotension, elevated troponins and now fever. It would seem unlikely that his multiple myeloma is directly responsible for his current status. His calcium remains normal. Recommend- As per renal service Need to pursue bacterial peritonitis, general fever workup and empiric antibiotics As per cardiology 2. Multiple myeloma-patient is more anemic than is he has typically been Recommend- Check stools for occult blood Transfuse red blood cells No immediate plans for chemotherapy 3. Back pain-MRI total spine Overall prognosis is guarded. Recommendations: .. Consult Acknowledgment - Thank you for your consult request.
[2017-10-26 07:45] LABS: ABSOLUTE BASOPHIL COUNT 0 /CUMM (0.0-0.2); ABSOLUTE EOSINOPHIL COUNT 0 /CUMM (0.0-0.7); ABSOLUTE GRANULOCYTE CT 4.8 /CUMM (1.4-6.5); ABSOLUTE LYMPH COUNT 0.3 /CUMM (1.2-3.4); ABSOLUTE MONOCYTE COUNT 0.3 /CUMM (0.10-0.60); BASOPHIL % 0.1 % (0.0-2.0); EOSINOPHIL % 0 % (0-5); MEAN CORPUSCULAR HGB 32.3 PG (27.0-31.0); MEAN CORPUSCULAR HGB CONC 32.9 G/DL (33.0-37.0); MEAN CORPUSCULAR VOLUME 98.1 FL (80.0-94.0); MEAN PLATELET VOLUME 8.5 FL (7.4-10.4); PLATELET COUNT 103 /CUMM (130-400); RBC DISTRIBUTION WIDTH 18.6 % (11.5-14.5); WHITE BLOOD CELL COUNT 5.4 /CUMM (4.8-10.8)
[2017-10-26 07:49] LABS: HEMATOCRIT 19.6 % (42-52)
--- NOTE | 2017-10-26 08:23 | PN- Nephrology ---
Assessment/Plan Nephrology Assessment: 1. ESRD: continue PD; no clinical evidence peritonitis 2. Fever: source unclear --> ? pulm w abnormal CXR; need imaging of back. To cover w broad spectrum antibiotics & consult ID 3. Hypotension: suspect still hypovolemic in setting of fever & prob sepsis; start maitenance IV as limit UF w PD Suggestion: 1. cover w Vanco & ceftriaxone 2. ID consult 3. IV D 1/2 NS 75 ml/hr 4. MR back w/o gadolinium 5. Type & X --> consider Tx 1 unit prbc Subjective Subjective: Fever >101 this AM noted C/o back pain No cough or SOB No abd pain - PD fluid reported clear Objective Vital Signs and I&Os Vital Signs Date Time Temp Pulse Resp B/P B/P Pulse O2 O2 Flow FiO2 Mean Ox Delivery Rate 10/26 0638 101.2 101 20 88/60 100 Nasal Cannula 10/26 0200 101.9 10/26 0114 100.8 10/26 0000 Nasal 2.0L Cannula 10/25 2319 101.7 114 18 104/68 95 Room Air 10/25 2119 Nasal 2.0L Cannula 10/25 2046 100.3 113 20 98/70 91 Nasal 2.0L Cannula 10/25 1902 98.0 106 16 91/66 95 Nasal 2.0L Cannula 10/25 1745 100 16 90/64 97 Nasal 2.0L Cannula 10/25 1623 94 16 84/53 97 Nasal 2.0L Cannula 10/25 1557 98.2 95 16 78/50 97 Non 2.0L ReBreather 10/25 1440 98.2 89 16 70/49 97 Nasal 2.0L Cannula 10/25 1339 93 16 76/53 97 Nasal 2.0L Cannula 10/25 1245 98.0 100 16 76/52 97 Nasal 2.0L Cannula 10/25 1212 97.8 101 16 96/68 96 Nasal 2.0L Cannula 10/25 1127 106 16 90/61 96 Nasal 2.0L Cannula 10/25 1028 112 20 88/58 10/25 1005 111 20 80/52 10/25 0932 99.7 78 16 64/34 92 Room Air Intake & Output 10/26 1600 10/26 0400 10/25 1600 10/25 0400 10/24 1600 10/24 0400 Intake Total 350 1000 Output Total -300 900 Balance 650 -900 1000 Intake, IV 350 1000 Output, -300 900 Dialysate Patient 161 lb 150 lb Weight Weight Bed scale Standing Scale Measurement Method Physical Exam General Appearance: no apparent distress, awake Head: atraumatic, normal appearance Ears, Nose, Throat: normal ENT inspection Neck: normal inspection Respiratory: quiet respiration, lungs clear Cardiovascular: regular rate/rhythm Abdomen: soft, non-tender Extremities: no edema Neurologic/Psychiatric: awake, oriented x 3 Skin: intact, normal color Lymphatic: no anterior cervical matty Current Medications: Current Medications Sig/Christie Start time Last Medication Dose Route Stop Time Status Admin Acetaminophen 500 MG ONCE ONE 10/26 0045 DC 10/26 PO 10/26 0046 0114 Acetaminophen 0 .STK-MED ONE 10/25 1147 DC IV Acetaminophen 500 MG ONCE ONE 10/25 1130 DC 10/25 IV 10/25 1131 1143 Acyclovir 200 MG DAILY 10/26 1000 AC PO Apixaban 2.5 MG BID 10/25 2200 AC 10/25 PO 2226 Lubiprostone 24 MCG BID 10/25 2200 AC 10/25 PO 2226 Magnesium Oxide 400 MG DAILY 10/25 1611 AC 10/25 PO 1647 Multivitamins 1 TAB DAILY 10/26 1000 AC PO Oxycodone HCl 20 MG 0900,2100 10/26 0900 AC PO Oxycodone HCl 20 MG Q6P PRN 10/25 2315 CAN PO Oxycodone HCl 10 MG Q4-6 PRN PRN 10/25 2315 AC PO Oxycodone HCl 20 MG BID 10/25 2200 DC 10/25 PO 2226 Oxycodone HCl 0 .STK-MED ONE 10/25 1648 DC PO Oxycodone HCl 10 MG Q6 PRN 10/25 1615 DC 10/25 PO 1647 Prochlorperazine 10 MG Q6 PRN 10/25 1615 AC PO Sevelamer Carbonate 3,200 MG WM 10/25 1700 AC 10/25 PO 1647 Sevelamer Carbonate 1,600 MG TID PRN 10/25 1615 AC PO Sodium Chloride 1,000 ML BOLUS ONE 10/25 1515 DC 10/25 IV 10/25 1614 1600 Sodium Chloride 1,000 ML BOLUS ONE 10/25 1015 DC 10/25 IV 10/25 1214 1010 Results Pertinent Lab Results: Laboratory Tests 10/26 10/26 10/26 10/25 0600 0600 0000 2248 Chemistry Sodium Pending Potassium Pending Chloride Pending Carbon Dioxide Pending Anion Gap Pending BUN Pending Creatinine Pending BUN/Creatinine Ratio Pending Calcium Pending Phosphorus Pending Magnesium Pending Troponin I (<0.11 ng/ml) Cancelled Pending 1.28 *H Hematology CBC w Diff Pending NO MAN DIFF REQ WBC (4.8 - 10.8 /CUMM) Pending 5.9 RBC (4.70 - 6.10 /CUMM) Pending 1.93 L Hgb (14.0 - 18.0 G/DL) Pending 6.4 *L Hct (42 - 52 %) Pending 19.2 *L MCV (80.0 - 94.0 FL) Pending 99.6 H MCH (27.0 - 31.0 PG) Pending 33.2 H MCHC (33.0 - 37.0 G/DL) Pending 33.3 RDW (11.5 - 14.5 %) Pending 17.9 H Plt Count (130 - 400 /CUMM) Pending 121 L MPV (7.4 - 10.4 FL) Pending 8.4 Gran % (42.2 - 75.2 %) Pending 92.3 H Lymphocytes % (20.5 - 51.1 %) Pending 3.4 L Monocytes % (1.7 - 9.3 %) Pending 4.3 Eosinophils % (0 - 5 %) Pending 0 Basophils % (0.0 - 2.0 %) Pending 0 Absolute Granulocytes (1.4 - 6.5 /CUMM) Pending 5.4 Absolute Lymphocytes (1.2 - 3.4 /CUMM) Pending 0.2 L Lymphocytes (%) 18 Absolute Monocytes (0.10 - 0.60 /CUMM) Pending 0.3 Absolute Eosinophils (0.0 - 0.7 /CUMM) Pending 0 Absolute Basophils (0.0 - 0.2 /CUMM) Pending 0 % Normal PMNs (%) 45 Misc Hematology Test (%) Other Body Source Fluid WBC (0 - 5 /CUMM) 86 H Fld Total RBCs Counted (0 /CUMM) 24 H 04/11 04/11 1620 1002 Chemistry Sodium (137 - 145 mmol/L) 139 Potassium (3.5 - 5.1 mmol/L) 3.8 Chloride (98 - 107 mmol/L) 92 L Carbon Dioxide (22 - 30 mmol/L) 24 Anion Gap (5 - 16) 23 H BUN (9 - 20 mg/dL) 66 H Creatinine (0.7 - 1.2 mg/dL) 12.2 *H Estimated GFR (>60 ml/min) 4 L BUN/Creatinine Ratio (7 - 25 %) 5.4 L Glucose (65 - 99 mg/dL) 122 H Lactic Acid (0.7 - 2.1 mmol/L) 1.3 Calcium (8.4 - 10.2 mg/dL) 8.9 Total Bilirubin (0.2 - 1.3 mg/dL) 0.7 AST (17 - 59 U/L) 19 ALT (21 - 72 U/L) 24 Alkaline Phosphatase (< 127 U/L) 58 Troponin I (<0.11 ng/ml) 1.23 *H 0.98 *H Total Protein (6.3 - 8.2 g/dL) 7.3 Albumin (3.5 - 5.0 g/dL) 3.2 L Globulin (1.9 - 4.2 gm/dL) 4.1 Albumin/Globulin Ratio (1.1 - 2.2 %) 0.8 L TSH &T3 &Free T4 Intrp (0.27 - 4.20 uIU/mL) 2.240 Hematology CBC w Diff MAN DIFF ORDERED WBC (4.8 - 10.8 /CUMM) 8.6 RBC (4.70 - 6.10 /CUMM) 2.20 L Hgb (14.0 - 18.0 G/DL) 7.3 *L Hct (42 - 52 %) 21.6 L MCV (80.0 - 94.0 FL) 98.2 H MCH (27.0 - 31.0 PG) 33.1 H MCHC (33.0 - 37.0 G/DL) 33.7 RDW (11.5 - 14.5 %) 17.5 H Plt Count (130 - 400 /CUMM) 142 MPV (7.4 - 10.4 FL) 8.4 Gran % (42.2 - 75.2 %) 91.4 H Lymphocytes % (20.5 - 51.1 %) 3.3 L Monocytes % (1.7 - 9.3 %) 5.2 Eosinophils % (0 - 5 %) 0 Basophils % (0.0 - 2.0 %) 0.1 Absolute Granulocytes (1.4 - 6.5 /CUMM) 7.9 H Absolute Lymphocytes (1.2 - 3.4 /CUMM) 0.3 L Absolute Monocytes (0.10 - 0.60 /CUMM) 0.4 Absolute Eosinophils (0.0 - 0.7 /CUMM) 0 Absolute Basophils (0.0 - 0.2 /CUMM) 0 Platelet Estimate (ADEQUATE) VERIFIED BY SMEAR Polychromasia 1+ Anisocytosis 1+ Toxicology Serum Alcohol (<10 MG/DL) < 10.0 10/25 0958 Toxicology Methadone Screen Cancelled Barbiturate Screen Cancelled Ur Phencyclidine Scrn Cancelled Amphetamines Screen Cancelled U Benzodiazepines Scrn Cancelled Urine Cocaine Screen Cancelled Urine Cannabis Screen Cancelled Urines Urine Color Cancelled Urine Clarity Cancelled Urine pH Cancelled Ur Specific [place] Cancelled Urine Protein Cancelled Urine Ketones Cancelled Urine Nitrite Cancelled Urine Bilirubin Cancelled Urine Urobilinogen Cancelled Ur Leukocyte Esterase Cancelled Ur Microscopic Cancelled Urine Hemoglobin Cancelled Urine Glucose Cancelled Imaging/Other Studies: CXR: IMPRESSION: Hazy opacities in the right upper lung and left base given low lung volumes and distribution are favored to represent atelectas Echo: CONCLUSIONS Suboptimal views. Hyperdynamic left ventricular systolic function. Normal Right ventricular systolic function. No significant valvular abnormalities noted
--- NOTE | 2017-10-26 08:26 | PN- Cardiology ---
Subjective Subjective: Has weakness and significant back pain. No chest pain or palpitations. No dyspnea. Objective Vital Signs and I&Os Vital Signs Date Time Temp Pulse Resp B/P B/P Pulse O2 O2 Flow FiO2 Mean Ox Delivery Rate 10/26 0638 101.2 101 20 88/60 100 Nasal Cannula 10/26 0200 101.9 10/26 0114 100.8 10/26 0000 Nasal 2.0L Cannula 10/25 2319 101.7 114 18 104/68 95 Room Air 10/25 2119 Nasal 2.0L Cannula 10/25 2046 100.3 113 20 98/70 91 Nasal 2.0L Cannula 10/25 1902 98.0 106 16 91/66 95 Nasal 2.0L Cannula 10/25 1745 100 16 90/64 97 Nasal 2.0L Cannula 10/25 1623 94 16 84/53 97 Nasal 2.0L Cannula 10/25 1557 98.2 95 16 78/50 97 Non 2.0L ReBreather 10/25 1440 98.2 89 16 70/49 97 Nasal 2.0L Cannula 10/25 1339 93 16 76/53 97 Nasal 2.0L Cannula 10/25 1245 98.0 100 16 76/52 97 Nasal 2.0L Cannula 10/25 1212 97.8 101 16 96/68 96 Nasal 2.0L Cannula 10/25 1127 106 16 90/61 96 Nasal 2.0L Cannula 10/25 1028 112 20 88/58 10/25 1005 111 20 80/52 10/25 0932 99.7 78 16 64/34 92 Room Air Intake & Output 10/26 1600 10/26 0800 10/26 0000 10/25 1600 10/25 0800 10/25 0000 Intake Total 350 1000 Output Total -300 900 Balance 650 -900 1000 Intake, IV 350 1000 Output, -300 900 Dialysate Patient 161 lb 150 lb Weight Weight Bed scale Standing Scale Measurement Method Physical Exam: General: no apparent distress. Alert. Eyes: No obvious scleral icterus. HEENT: No jugular venous distention or abnormal jugular venous pulsations. Cardiovascular: Normal intensity S1/S2. Regular Respiratory: Lungs clear to auscultation bilaterally. Abdomen: Soft, nontender with no guarding or rebound tenderness. Musculoskeletal: No clubbing or cyanosis noted, no edema Skin: Warm Neurologic: No gross focal deficits noted. Current Medications: Current Medications Sig/Christie Start time Last Medication Dose Route Stop Time Status Admin Acetaminophen 500 MG ONCE ONE 10/26 0045 DC 10/26 PO 10/26 0046 0114 Acetaminophen 0 .STK-MED ONE 10/25 1147 DC IV Acetaminophen 500 MG ONCE ONE 10/25 1130 DC 10/25 IV 10/25 1131 1143 Acyclovir 200 MG DAILY 10/26 1000 AC PO Apixaban 2.5 MG BID 10/25 2199 AC 10/25 PO 2226 Lubiprostone 24 MCG BID 10/25 2200 AC 10/25 PO 2226 Magnesium Oxide 400 MG DAILY 10/25 1611 AC 10/25 PO 1647 Multivitamins 1 TAB DAILY 10/26 1000 AC PO Oxycodone HCl 20 MG 0900,2100 10/26 0900 AC PO Oxycodone HCl 20 MG Q6P PRN 10/25 2315 CAN PO Oxycodone HCl 10 MG Q4-6 PRN PRN 10/25 2315 AC PO Oxycodone HCl 20 MG BID 10/25 220 DC 10/25 PO 2226 Oxycodone HCl 0 .STK-MED ONE 10/25 1648 DC PO Oxycodone HCl 10 MG Q6 PRN 10/25 1615 DC 10/25 PO 1647 Prochlorperazine 10 MG Q6 PRN 10/25 1615 AC PO Sevelamer Carbonate 3,200 MG WM 10/25 1700 AC 10/25 PO 1647 Sevelamer Carbonate 1,600 MG TID PRN 10/25 1615 AC PO Sodium Chloride 1,000 ML BOLUS ONE 10/25 1515 DC 10/25 IV 10/25 1614 1600 Sodium Chloride 1,000 ML BOLUS ONE 10/25 1015 DC 10/25 IV 10/25 1214 1010 Results Last 48 Hrs of Labs/Mics: Laboratory Tests 10/26/17 0600: Troponin I Cancelled 10/26/17 0600: Sodium Pending, Potassium Pending, Chloride Pending, Carbon Dioxide Pending, Anion Gap Pending, BUN Pending, Creatinine Pending, BUN/Creatinine Ratio Pending , Calcium Pending, Phosphorus Pending, Magnesium Pending, Troponin I Pending, CBC w Diff Pending, WBC Pending, RBC Pending, Hgb Pending, Hct Pending, MCV Pending, MCH Pending, MCHC Pending, RDW Pending, Plt Count Pending, MPV Pending, Gran % Pending, Lymphocytes % Pending, Monocytes % Pending, Eosinophils % Pending, Basophils % Pending, Absolute Granulocytes Pending, Absolute Lymphocytes Pending, Absolute Monocytes Pending, Absolute Eosinophils Pending, Absolute Basophils Pending 10/26/17 0000: Lymphocytes 18, % Normal PMNs 45, Misc Hematology Test , Fluid WBC 86 H, Fld Total RBCs Counted 24 H 10/25/17 2248: Troponin I 1.28 *H, CBC w Diff NO MAN DIFF REQ, RBC 1.93 L, MCV 99.6 H, MCH 33.2 H, MCHC 33.3, RDW 17.9 H, MPV 8.4, Gran % 92.3 H, Lymphocytes % 3.4 L, Monocytes % 4.3, Eosinophils % 0, Basophils % 0, Absolute Granulocytes 5.4, Absolute Lymphocytes 0.2 L, Absolute Monocytes 0.3, Absolute Eosinophils 0, Absolute Basophils 0 10/25/17 1620: Lactic Acid 1.3, Troponin I 1.23 *H 10/25/17 1002: Anion Gap 23 H, Estimated GFR 4 L, BUN/Creatinine Ratio 5.4 L, Glucose 122 H , Calcium 8.9, Total Bilirubin 0.7, AST 19, ALT 24, Alkaline Phosphatase 58, Troponin I 0.98 *H, Total Protein 7.3, Albumin 3.2 L, Globulin 4.1, Albumin/ Globulin Ratio 0.8 L, TSH &T3 &Free T4 Intrp 2.240, CBC w Diff MAN DIFF ORDERED , RBC 2.20 L, MCV 98.2 H, MCH 33.1 H, MCHC 33.7, RDW 17.5 H, MPV 8.4, Gran % 91.4 H, Lymphocytes % 3.3 L, Monocytes % 5.2, Eosinophils % 0, Basophils % 0.1 , Absolute Granulocytes 7.9 H, Absolute Lymphocytes 0.3 L, Absolute Monocytes 0.4, Absolute Eosinophils 0, Absolute Basophils 0, Platelet Estimate VERIFIED BY SMEAR, Polychromasia 1+, Anisocytosis 1+, Serum Alcohol < 10.0 10/25/17 0958: Methadone Screen Cancelled, Barbiturate Screen Cancelled, Ur Phencyclidine Scrn Cancelled, Amphetamines Screen Cancelled, U Benzodiazepines Scrn Cancelled, Urine Cocaine Screen Cancelled, Urine Cannabis Screen Cancelled, Urine Color Cancelled, Urine Clarity Cancelled, Urine pH Cancelled, Ur Specific [place] Cancelled, Urine Protein Cancelled, Urine Ketones Cancelled, Urine Nitrite Cancelled, Urine Bilirubin Cancelled, Urine Urobilinogen Cancelled, Ur Leukocyte Esterase Cancelled, Ur Microscopic Cancelled, Urine Hemoglobin Cancelled, Urine Glucose Cancelled Recent Imaging Studies: Telemetry tracings were personally reviewed and shows sinus rhythm and sinus tachycardia Echocardiogram Suboptimal views. Hyperdynamic left ventricular systolic function. Normal Right ventricular systolic function. No significant valvular abnormalities noted Raul Collins M.D. (Electronically Signed) Final Date: 25 October 2017 Assessment/Plan Assessment/Plan 1. Hypotension 2. multiple myeloma 3. anemia requiring transfusion 4. paroxysmal atrial fibrillation on low-dose eliquis and with implantable loop recorder 5. end-stage renal disease on peritoneal dialysis 6. history of hypertension on outpatient low-dose coreg 7. Elevated troponin due to end-stage renal disease and hypotension Patient now noted to be febrile which is the likely etiology of his hypotension; would have a low threshold for ICU transfer of any clinical deterioration; obtain ID consult. Echocardiogram showed normal ventricular function with no pericardial effusion. Given the worsening anemia okay to hold Eliquis until bleeding source can be confidently excluded; check stool for guaiac. Agustín Cosby MD [facility] Continue telemetry? Yes
[2017-10-26 08:34] LABS: GRANULOCYTE % 89.1 % (42.2-75.2)
--- NOTE | 2017-10-26 10:44 | PN- Att Addend ---
Attending Addendum Attending Brief Note 66M PMH multiple myeloma on weekly chemotherapy, atrial fibrillation on eliquis, ESRD on peritoneal dialysis, hypertension, hyperlipidemia, chronic back pain presenting with several days of progressive weakness, some confusion, found to be hypotensive in ED with elevated troponin 0.98. Overnight patient spiked fever to 101 and started a dry cough. He appears dyspneic on exam. Blood cultures are growing gram positive cocci. He complains of chronic back pain that is worse than usual. Troponin still increasing 1.6, no EKG changes. 1. Sepsis secondary to gram positive bacteremia 2. Type 2 myocardial infarction 3. Hypotension (resolved) 4. Intractable back pain 5. ESRD on PD 6. Multiple myeloma Plan - Convert to full admission on telemetry - Trend cardiac enzymes, repeat EKG - Follow cardiology, nephrology, hematology, infectious disease recommendations - Start Vancomycin and Ceftazidime - Follow cultures - Continue pain regimen, can increase PRN dose if uncontrolled - CT chest - MRI spine without gadolinium - Continue home medications - DVT PPx - Continue peritoneal dialysis
--- NOTE | 2017-10-26 10:47 | Admission Certification ---
Admission Certification Certification Statement - As attending physician, I certify that at the time of - admission, based on clinical presentation, severity of - symptoms, need for further diagnostic testing and - therapeutic interventions, and risk of adverse outcomes - without in-hospital treatment, in my clinical assessment, - this patient requires an acute hospital stay for a minimum - of two nights or longer. I have also considered psychsocial - factors such as support system, advanced age, financial - issues, cognitive issues, and failed out-patient treatments, - past re-admission history, safety of patient, and lack of - compliance as applicable. Specific rationale supporting this admission is: Gram positive sepsis with positive troponin
--- NOTE | 2017-10-26 11:56 | Cons- Infect Disease ---
General Information and HPI Consulting Request Date of Consult: 10/26/17 Requested By: Sherley Oropeza MD Reason for Consult: Positive blood cultures for gram-positive cocci in pairs and chains Source of Information: patient, family, old records Exam Limitations: unable to give history, confusion History of Present Illness: This is a 66-year-old man with multiple myeloma, diagnosed 3 years prior to admission after presenting with back pain and renal failure, treated with chemotherapy every other week (last treatment 1 week prior to admission) with chronic lower back pain, requiring chronic pain meds, but with stable globulins and MRIs, end-stage renal disease, maintained on continuous cycling peritoneal dialysis via a Tenckhoff catheter, atrial fibrillation, status post an implantable loop recorder in his left upper chest 1 year prior to admission, hypertension and osteoporosis, admitted on October 25 with a 4 day history of neck pain, increasing lethargy and confusion, anorexia, with decreased oral intake, with no fevers or chills. On admission he was afebrile with a blood pressure of 64/34. Laboratory data revealed a white blood cell count of 8.6, H&H 7 and 22, BUN/creatinine 66 and 12, troponin 0.98. CT of the head was negative for any acute process. Chest x-ray revealed hazy opacities in the right upper lung and left base. He was given IV fluids with some improvement in his blood pressure. Overnight he spiked a fever to 101.9. This morning blood cultures 2 were reported positive for gram-positive cocci in pairs and chains and he has been started on Vancomycin and Ceftriaxone. At present he is unable to provide a history given the confusion but he did complain of a headache. Allergies/Medications Allergies: Coded Allergies: NO KNOWN ALLERGIES (06/29/16) Home Med List: Acyclovir 200 MG CAPSULE 1 CAP PO DAILY SHINGLE PREVENTION (Reported) Apixaban (Eliquis) 2.5 MG TABLET 1 TAB PO BID BLOOD THINNER (Reported) Carvedilol 3.125 MG TABLET 1 TAB PO BID BLOOD PRESSURE Lubiprostone (Amitiza) 24 MCG CAPSULE 1 CAP PO BID GI (Reported) Magnesium Oxide 400 MG TABLET 1 TAB PO DAILY HYPOMAGNESEMIA Oxycodone HCl 10 MG TABLET 1-2 TAB PO Q4-6H PRN PAIN (Reported) Oxycodone HCl (Oxycodone HCl ER) 20 MG TAB.ER.12H 1 TAB PO BID PAIN (Reported ) Prochlorperazine Maleate 10 MG TABLET 1 TAB PO Q6 PRN N/V (Reported) Sevelamer Carbonate (Renvela) 800 MG TABLET 4 TAB PO WM KIDNEYS (Reported) Sevelamer Carbonate (Renvela) 800 MG TABLET 2 TAB PO TID PRN KIDNEYS ( Reported) Vit B Cmplx 3/FA/Vit C/Biotin (Nephro-Nola Rx Tablet) 1 MG-60 MG-300 MCG TABLET 1 TAB PO DAILY SUPPLEMENT (Reported) Past History Travel History Traveled to [place] past 21 day No Medical History Blood Transfusion Hx: Yes Neurological: NONE EENT: NONE Cardiovascular: AFIB, hypertension Respiratory: NONE Renal: END-STAGE RENAL DISEASE ON PERITONEAL Musculoskeletal: chronic back pain, osteoporosis Psychiatric: NONE Endocrine: NONE Blood Disorders: MULTIPLE MYELOMA History of MRSA: No History of VRE: No History of CDIFF: No Isolation History: Standard Influenza Vaccine: 03/17/16 Surgical History Surgical History: appendectomy Family History Relations & Conditions If Any: Relation not specified for: FH: colon cancer Psychosocial History Services at Home: None Smoking Status: Never Smoked ETOH Use: denies use Review of Systems Review of Systems All Other Systems: Reviewed and Negative Exam & Diagnostic Data Last 24 Hrs of Vital Signs/I&O Vital Signs Date Time Temp Pulse Resp B/P B/P Pulse O2 O2 Flow FiO2 Mean Ox Delivery Rate 10/26 0800 97 Nasal 2.0L Cannula 10/26 0638 101.2 101 20 88/60 100 Nasal Cannula 10/26 0200 101.9 10/26 0114 100.8 10/26 0000 Nasal 2.0L Cannula 10/25 2319 101.7 114 18 104/68 95 Room Air 10/25 2119 Nasal 2.0L Cannula 10/25 2046 100.3 113 20 98/70 91 Nasal 2.0L Cannula 10/25 1902 98.0 106 16 91/66 95 Nasal 2.0L Cannula 10/25 1745 100 16 90/64 97 Nasal 2.0L Cannula 10/25 1623 94 16 84/53 97 Nasal 2.0L Cannula 10/25 1557 98.2 95 16 78/50 97 Non 2.0L ReBreather 10/25 1440 98.2 89 16 70/49 97 Nasal 2.0L Cannula 10/25 1339 93 16 76/53 97 Nasal 2.0L Cannula 10/25 1245 98.0 100 16 76/52 97 Nasal 2.0L Cannula 10/25 1212 97.8 101 16 96/68 96 Nasal 2.0L Cannula Intake & Output 10/26 1600 10/26 0800 10/26 0000 Intake Total 350 Output Total -300 900 Balance 650 -900 Intake, IV 350 Output, -300 900 Dialysate Patient 161 lb Weight Weight Bed scale Measurement Method Physical Exam Other Physical Findings: MAXIMUM TEMPERATURE 101.9. He is lethargic and confused, in moderate distress secondary to neck pain. Skin reveals no rash. HEENT negative. Neck pain on minimal movement in any direction. Chest implantable loop recorder in the left upper chest with no inflammation at the site. Lungs are clear. Heart regular rhythm with a 2/6 systolic ejection murmur. Abdomen is soft, tender on palpation diffusely, with positive bowel sounds; Tenckhoff catheter in place. coating mixer tender on palpation over the spine. Extremities no cyanosis, clubbing or edema. Neuro is without focality. Last 24 Hours of Lab Results: Laboratory Tests 10/26 10/26 10/26 0600 0600 0000 Chemistry Sodium (137 - 145 mmol/L) 137 Potassium (3.5 - 5.1 mmol/L) 3.8 Chloride (98 - 107 mmol/L) 97 L Carbon Dioxide (22 - 30 mmol/L) 23 Anion Gap (5 - 16) 18 H BUN (9 - 20 mg/dL) 64 H Creatinine (0.7 - 1.2 mg/dL) 11.9 *H Estimated GFR (>60 ml/min) 4 L BUN/Creatinine Ratio (7 - 25 %) 5.4 L Calcium (8.4 - 10.2 mg/dL) 8.3 L Phosphorus (2.5 - 4.5 mg/dL) 7.2 H Magnesium (1.6 - 2.3 mg/dL) 1.3 L Troponin I (<0.11 ng/ml) Cancelled 1.77 *H Hematology CBC w Diff NO MAN DIFF REQ WBC (4.8 - 10.8 /CUMM) 5.4 RBC (4.70 - 6.10 /CUMM) 2.00 L Hgb (14.0 - 18.0 G/DL) 6.5 *L Hct (42 - 52 %) 19.6 *L MCV (80.0 - 94.0 FL) 98.1 H MCH (27.0 - 31.0 PG) 32.3 H MCHC (33.0 - 37.0 G/DL) 32.9 L RDW (11.5 - 14.5 %) 18.6 H Plt Count (130 - 400 /CUMM) 103 L MPV (7.4 - 10.4 FL) 8.5 Gran % (42.2 - 75.2 %) 89.1 H Lymphocytes % (20.5 - 51.1 %) 4.7 L Monocytes % (1.7 - 9.3 %) 6.1 Eosinophils % (0 - 5 %) 0 Basophils % (0.0 - 2.0 %) 0.1 Absolute Granulocytes (1.4 - 6.5 /CUMM) 4.8 Absolute Lymphocytes (1.2 - 3.4 /CUMM) 0.3 L Lymphocytes (%) 18 Absolute Monocytes (0.10 - 0.60 /CUMM) 0.3 Absolute Eosinophils (0.0 - 0.7 /CUMM) 0 Absolute Basophils (0.0 - 0.2 /CUMM) 0 % Normal PMNs (%) 45 Misc Hematology Test (%) Other Body Source Fluid WBC (0 - 5 /CUMM) 86 H Fld Total RBCs Counted (0 /CUMM) 24 H 10/25 10/25 2248 1620 Chemistry Lactic Acid (0.7 - 2.1 mmol/L) 1.3 Troponin I (<0.11 ng/ml) 1.28 *H 1.23 *H Hematology CBC w Diff NO MAN DIFF REQ WBC (4.8 - 10.8 /CUMM) 5.9 RBC (4.70 - 6.10 /CUMM) 1.93 L Hgb (14.0 - 18.0 G/DL) 6.4 *L Hct (42 - 52 %) 19.2 *L MCV (80.0 - 94.0 FL) 99.6 H MCH (27.0 - 31.0 PG) 33.2 H MCHC (33.0 - 37.0 G/DL) 33.3 RDW (11.5 - 14.5 %) 17.9 H Plt Count (130 - 400 /CUMM) 121 L MPV (7.4 - 10.4 FL) 8.4 Gran % (42.2 - 75.2 %) 92.3 H Lymphocytes % (20.5 - 51.1 %) 3.4 L Monocytes % (1.7 - 9.3 %) 4.3 Eosinophils % (0 - 5 %) 0 Basophils % (0.0 - 2.0 %) 0 Absolute Granulocytes (1.4 - 6.5 /CUMM) 5.4 Absolute Lymphocytes (1.2 - 3.4 /CUMM) 0.2 L Absolute Monocytes (0.10 - 0.60 /CUMM) 0.3 Absolute Eosinophils (0.0 - 0.7 /CUMM) 0 Absolute Basophils (0.0 - 0.2 /CUMM) 0 Last 24 Hours of [place] Results: Blood cultures 2 October 26 positive for gram-positive cocci in pairs and chains Diagnostic Data Recent Imaging Findings: CT of the head October 25 no acute process Chest x-ray October 25 reveals hazy opacities in the right upper lung and left base, felt to represent atelectasis Echocardiogram October 25 no vegetations noted Assessment/Plan Assessment/Plan Impression: This is a 66-year-old man with multiple myeloma, treated with chemotherapy every other week, with chronic lower back pain, requiring chronic pain meds, but with stable globulins and MRIs, end-stage renal disease, maintained on continuous cycling peritoneal dialysis, atrial fibrillation, status post an implantable loop recorder in his left upper chest 1 year prior to admission, admitted on October 25 with a 4 day history of neck pain, increasing lethargy and confusion, anorexia, with decreased oral intake, with no fevers or chills, found initially to be afebrile and hypotensive, with a normal white blood cell count and anemia, with the development of a fever overnight, now found to have positive blood cultures for gram-positive cocci in pairs and chains. His clinical picture is consistent with sepsis, with no obvious source. I am concerned about meningitis, given his confusion, neck pain and headache and his positive blood cultures may well prove to be strep pneumoniae, given the increased risk for encapsulated organisms in patients with multiple myeloma. A lumbar puncture will need to be pursued though it will be complicated secondary to his back pain, limiting his mobility, and to the fact that he is on Eliquis. Pneumonia is certainly possible, with the apparent development of a cough, though his chest x-ray is more suggestive of atelectasis. Other than strep pneumoniae, possible organisms include the beta-hemolytic strep, Enterococcus and, less likely, alpha strep. Other possible sources include the Tenckhoff catheter, though his cell count is not suggestive of infection, or the implantable loop recorder in his chest, though there is no overlying inflammation. A urinary source is less likely given his renal failure, though possible. Finally endocarditis must be considered, with his murmur, though the transthoracic echo is negative. Suggestion: 1. Would pursue a lumbar puncture (have discussed with IR) 2. Send peritoneal fluid for culture 3. Straight cath for urinalysis and urine culture 4. Follow-up final blood cultures 5. Increase Ceftriaxone to 2 g IV every 12 hours pending above 6. Continue Vancomycin, dosed per Renal, pending final cultures Consult Acknowledgment - Thank you for your consult request.
[2017-10-26 13:24] LABS: PT 17.2 SEC (9.4-12.5)
[2017-10-26 15:00] VITALS: BP 90/66
[2017-10-26 16:00] VITALS: BP 100/60
--- NOTE | 2017-10-26 16:30 | Event Note ---
Event Note Event Note: Patient is being transferred to ICU because he has possible septic shock as his blood pressure was dropped to 70s. Patient has gram +ve bacteremia with unknown source. It was discussed with ICU team and DR. Graham. They agreed with it.
--- NOTE | 2017-10-26 16:44 | Cons- CRCU ---
Yara Arambula 10/26/17 1640: General Information and HPI Consulting Request Date of Consult: 10/26/17 Requested By: Dr Oropeza Reason for Consult: sepsis hypotension ?peritonitis GPC bacteremia Source of Information: patient, family, old records Exam Limitations: no limitations History of Present Illness: Patient is 66-year-old gentleman with past medical history significant for hypertension, multiple myeloma currently on chemotherapy every other week last treatment was on October 18, history of chronic back pain and neck pain on multiple pain medications, end-stage renal disease on alanis-toenail dialysis via Tenckhoff catheter, atrial fibrillation on anticoagulation, status post implantable loop recorder, was brought into [facility] on October 25 with chief complaint of worsening lethargy, weakness and confusion for last few days. At the time of interview patient was intermittently confused and was not very helpful in contributing to versus history so most of the history was taken from his who was present in room at time of interview. According to her patient was in his usual state of health and received his last chemotherapy on October 18 which was Monday and feeling fine on and Monday but he slept on Monday which was not unusual for him but found to be slightly confused and forget full on Monday when she has to call her multiple times to come for lunch and dinner. On Monday he went to his work and Monday she was told by his employees/cold legs that he was acting strange and was confused at work. Monday she called Dr. Perez and discussed his situation and was told to bring him to ER right away but she wasn't able to as she was out of station. And stay morning he was brought into [facility]. During initial assessment patient was found hypotensive and anemic which was contributed to worse his chronic renal failure and was treated with IV fluid hydration and packed red cell. Initially patient was Kept on telemetry observation for 23 hours. On admission he was afebrile but blood pressure was on the lower side but he responded well to fluids. Head CT was negative for any intracranial pathology but chest x-ray revealed hazy opacities in right upper lung and left base. He spiked a fever of MAXIMUM TEMPERATURE 101.9 overnight and his blood cultures came back positive for gram-positive cocci in pairs and chains and he was given appropriate antibiotics with vancomycin and ceftriaxone which was increased after consulting infectious disease Bharath Prado MD. 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 On telemetric floor his blood pressure was dropping to systolic 70s and did not respond well to 2 L of normal saline bolus and 1 unit of packed red cell and in anticipation of need for central line and IV pressors along with close monitoring due to his hypotension he was transferred to ICU. In ICU he was complaining of severe back pain, moderate neck pain and intermittent abdominal pain. But he was very confused and not able to tell story appropriately. Allergies/Medications Allergies: Coded Allergies: NO KNOWN ALLERGIES (06/29/16) Home Med List: Acyclovir 200 MG CAPSULE 1 CAP PO DAILY SHINGLE PREVENTION (Reported) Apixaban (Eliquis) 2.5 MG TABLET 1 TAB PO BID BLOOD THINNER (Reported) Carvedilol 3.125 MG TABLET 1 TAB PO BID BLOOD PRESSURE Lubiprostone (Amitiza) 24 MCG CAPSULE 1 CAP PO BID GI (Reported) Magnesium Oxide 400 MG TABLET 1 TAB PO DAILY HYPOMAGNESEMIA Oxycodone HCl 10 MG TABLET 1-2 TAB PO Q4-6H PRN PAIN (Reported) Oxycodone HCl (Oxycodone HCl ER) 20 MG TAB.ER.12H 1 TAB PO BID PAIN (Reported ) Prochlorperazine Maleate 10 MG TABLET 1 TAB PO Q6 PRN N/V (Reported) Sevelamer Carbonate (Renvela) 800 MG TABLET 4 TAB PO WM KIDNEYS (Reported) Sevelamer Carbonate (Renvela) 800 MG TABLET 2 TAB PO TID PRN KIDNEYS ( Reported) Vit B Cmplx 3/FA/Vit C/Biotin (Nephro-Nola Rx Tablet) 1 MG-60 MG-300 MCG TABLET 1 TAB PO DAILY SUPPLEMENT (Reported) Current Medications: Current Medications Sig/Christie Start time Last Medication Dose Route Stop Time Status Admin Acetaminophen 1,000 MG ONCE ONE 10/26 1100 DC 10/26 IV 10/26 1101 1232 Acetaminophen 500 MG ONCE ONE 10/26 0045 DC 10/26 PO 10/26 0046 0114 Acyclovir 200 MG DAILY 10/26 1000 AC PO Apixaban 2.5 MG BID 10/25 2200 DC 10/26 PO 0827 Ceftriaxone Sodium 2,000 MG Q12 10/26 2100 AC IV Ceftriaxone Sodium 1,000 MG ONCE ONE 10/26 1545 DC IV 10/26 1546 Ceftriaxone Sodium 1,000 MG DAILY 10/26 0900 DC 10/26 IV 1048 Dextrose/Sodium 1,000 ML Q20H 10/26 0815 AC 10/26 Chloride IV 0844 Lidocaine 0 .STK-MED ONE 10/26 1518 DC .ROUTE Lubiprostone 24 MCG BID 10/25 2200 AC 10/26 PO 0828 Magnesium Oxide 400 MG DAILY 10/25 1611 AC 10/26 PO 0827 Metoprolol Tartrate 6.25 MG BID 10/26 1310 AC PO Morphine Sulfate 2 MG ONCE ONE 10/26 1515 DC IV 10/26 1516 Multivitamins 1 TAB DAILY 10/26 1000 AC PO Oxycodone HCl 20 MG 0900,2100 10/26 0900 AC 10/26 PO 0827 Oxycodone HCl 20 MG Q6P PRN 10/25 2315 CAN PO Oxycodone HCl 10 MG Q4-6 PRN PRN 10/25 2315 AC PO Oxycodone HCl 20 MG BID 10/25 2200 DC 10/25 PO 2226 Oxycodone HCl 0 .STK-MED ONE 10/25 1648 DC PO Oxycodone HCl 10 MG Q6 PRN 10/25 1615 DC 10/25 PO 1647 Patient Medication 1 ED ONE ONE 10/26 1000 DC Teaching ED 10/26 1001 Prochlorperazine 10 MG Q6 PRN 10/25 1615 AC PO Sevelamer Carbonate 3,200 MG WM 10/25 1700 AC 10/26 PO 0827 Sevelamer Carbonate 1,600 MG TID PRN 10/25 1615 AC PO Vancomycin HCl 1,000 MG ONCE ONE 10/26 0830 DC 10/26 Dextrose/Water 250 ML IV 10/26 0929 1048 Review of Systems Review of Systems Constitutional: Reports: fever, malaise, weakness. Denies: chills. EENTM: Denies: blurred vision, double vision. Cardiovascular: Denies: chest pain, edema, orthopena. Respiratory: Denies: cough, hemoptysis. GI: Reports: abdominal pain, nausea. Genitourinary: Denies: discharge, dysuria. Musculoskeletal: Reports: back pain, muscle pain, neck pain. Skin: Reports: see HPI. Neurological/Psychological: Reports: confusion. Immunologic/Allergic: Reports: see HPI. Past History Travel History Traveled to [place] past 21 day No Medical History Blood Transfusion Hx: Yes Neurological: NONE EENT: NONE Cardiovascular: AFIB, hypertension Respiratory: NONE Renal: END-STAGE RENAL DISEASE ON PERITONEAL Musculoskeletal: chronic back pain, osteoporosis Psychiatric: NONE Endocrine: NONE Blood Disorders: MULTIPLE MYELOMA Surgical History Surgical History: appendectomy Family History Relations & Conditions If Any: Relation not specified for: FH: colon cancer Psychosocial History Services at Home: None Smoking Status: Never Smoked ETOH Use: denies use Functional Ability ADLs Independent: dressing, eating, toileting, bathing. Ambulation: independent IADLs Independent: shopping, housework, finances, food prep, telephone, transportation , medication admin. Exam & Diagnostic Data Last 24 Hrs of Vital Signs/I&O Vital Signs Date Time Temp Pulse Resp B/P B/P Pulse O2 O2 Flow FiO2 Mean Ox Delivery Rate 10/26 1553 100.9 10/26 1500 100.9 100 20 90/66 100 10/26 1232 101.2 10/26 0800 97 Nasal 2.0L Cannula 10/26 0638 101.2 101 20 88/60 100 Nasal Cannula 10/26 0200 101.9 10/26 0114 100.8 10/26 0000 Nasal 2.0L Cannula 10/25 2319 101.7 114 18 104/68 95 Room Air 10/25 2119 Nasal 2.0L Cannula 10/25 2046 100.3 113 20 98/70 91 Nasal 2.0L Cannula 10/25 1902 98.0 106 16 91/66 95 Nasal 2.0L Cannula Intake & Output 10/26 1600 10/26 0800 10/26 0000 Intake Total 420 350 Output Total -600 -300 900 Balance 1020 650 -900 Intake, IV 370 350 Intake, Oral 50 Output, -600 -300 900 Dialysate Patient 161 lb Weight Weight Bed scale Measurement Method Physical Exam General Appearance: alert, sedated, lethargic Head: atraumatic, normal appearance Neck: normal inspection Respiratory: normal breath sounds, chest non-tender Cardiovascular: regular rate/rhythm Gastrointestinal: soft, non-tender, no organomegaly Extremities: normal inspection, no edema Last 48 Hrs of Labs/Tyler: Laboratory Tests 10/26/17 1300: Lymphocytes 1, % Normal PMNs 88, Fluid WBC 678 H, Fld Mesothelial Cells 11, Fld Total RBCs Counted 250 H 10/26/17 1235: PT 17.2 H, INR 1.57 H 10/26/17 1141: Fluid WBC Cancelled, Fld Total RBCs Counted Cancelled 10/26/17 1141: Fluid Glucose Cancelled, Fluid Total Protein Cancelled, Fluid LDH Cancelled 10/26/17 0600: Troponin I Cancelled 10/26/17 0600: Anion Gap 18 H, Estimated GFR 4 L, BUN/Creatinine Ratio 5.4 L, Calcium 8.3 L , Phosphorus 7.2 H, Magnesium 1.3 L, Troponin I 1.77 *H, CBC w Diff NO MAN DIFF REQ, RBC 2.00 L, MCV 98.1 H, MCH 32.3 H, MCHC 32.9 L, RDW 18.6 H, MPV 8.5, Gran % 89.1 H, Lymphocytes % 4.7 L, Monocytes % 6.1, Eosinophils % 0, Basophils % 0.1, Absolute Granulocytes 4.8, Absolute Lymphocytes 0.3 L, Absolute Monocytes 0.3, Absolute Eosinophils 0, Absolute Basophils 0 10/26/17 0000: Lymphocytes 18, % Normal PMNs 45, Misc Hematology Test , Fluid WBC 86 H, Fld Total RBCs Counted 24 H 10/25/17 2248: Troponin I 1.28 *H, CBC w Diff NO MAN DIFF REQ, RBC 1.93 L, MCV 99.6 H, MCH 33.2 H, MCHC 33.3, RDW 17.9 H, MPV 8.4, Gran % 92.3 H, Lymphocytes % 3.4 L, Monocytes % 4.3, Eosinophils % 0, Basophils % 0, Absolute Granulocytes 5.4, Absolute Lymphocytes 0.2 L, Absolute Monocytes 0.3, Absolute Eosinophils 0, Absolute Basophils 0 10/25/17 1620: Lactic Acid 1.3, Troponin I 1.23 *H 10/25/17 1002: Anion Gap 23 H, Estimated GFR 4 L, BUN/Creatinine Ratio 5.4 L, Glucose 122 H , Calcium 8.9, Total Bilirubin 0.7, AST 19, ALT 24, Alkaline Phosphatase 58, Troponin I 0.98 *H, Total Protein 7.3, Albumin 3.2 L, Globulin 4.1, Albumin/ Globulin Ratio 0.8 L, TSH &T3 &Free T4 Intrp 2.240, CBC w Diff MAN DIFF ORDERED , RBC 2.20 L, MCV 98.2 H, MCH 33.1 H, MCHC 33.7, RDW 17.5 H, MPV 8.4, Gran % 91.4 H, Lymphocytes % 3.3 L, Monocytes % 5.2, Eosinophils % 0, Basophils % 0.1 , Absolute Granulocytes 7.9 H, Absolute Lymphocytes 0.3 L, Absolute Monocytes 0.4, Absolute Eosinophils 0, Absolute Basophils 0, Platelet Estimate VERIFIED BY SMEAR, Polychromasia 1+, Anisocytosis 1+, Serum Alcohol < 10.0 10/25/17957: Methadone Screen Cancelled, Barbiturate Screen Cancelled, Ur Phencyclidine Scrn Cancelled, Amphetamines Screen Cancelled, U Benzodiazepines Scrn Cancelled, Urine Cocaine Screen Cancelled, Urine Cannabis Screen Cancelled, Urine Color Cancelled, Urine Clarity Cancelled, Urine pH Cancelled, Ur Specific [place] Cancelled, Urine Protein Cancelled, Urine Ketones Cancelled, Urine Nitrite Cancelled, Urine Bilirubin Cancelled, Urine Urobilinogen Cancelled, Ur Leukocyte Esterase Cancelled, Ur Microscopic Cancelled, Urine Hemoglobin Cancelled, Urine Glucose Cancelled Diagnostic Data CXR Results SERVICE DATE: 10/25/17 EXAM TYPE: RAD - XRY-PORTABLE CHEST XRAY EXAMINATION: XR PORTABLE CHEST CLINICAL INFORMATION: Altered mental status, history of multiple myeloma COMPARISON: CT dated 10/23/2016, chest x-ray dated 11/24/2015 TECHNIQUE: Portable frontal view of the chest was obtained. FINDINGS: There are low lung volumes with bronchovascular crowding. Hazy opacity present in the left infrahilar region and right upper lung. No evidence of pleural effusion or pneumothorax. Cardiomediastinal silhouette is unchanged. IMPRESSION: Hazy opacities in the right upper lung and left base given low lung volumes and distribution are favored to represent atelectasis. DICTATED BY: Lisandra Osborn MD DATE/TIME DICTATED:10/25/171111 RAILROAD WHEELS AND AXLE INSPECTOR:YULIET DATE/TIME TRANSCRIBED:10/25/171111 Other Results CONCLUSIONS Suboptimal views. Hyperdynamic left ventricular systolic function. Normal Right ventricular systolic function. No significant valvular abnormalities noted Raul Collins M.D. (Electronically Signed) Final Date: 25 October 2017 Assessment/Plan CRCU Impression/Plan: Patient is 66-year-old immunocompromise gentleman with past medical history significant for multiple myeloma on chemotherapy every other week and last chemotherapy was on October 18, history of hypertension, end-stage renal disease on peritoneal dialysis, atrial fibrillation on anticoagulation, chronic back and neck pain on multiple opiates came to [facility] with pathology, worsening weakness and confusion for last few days. While on admission he was afebrile and hypotensive but responded well to IV hydration was monitored on telemetry floor as 23 hours observation but while he was on floors he spiked fever of 101.9, found to have gram-positive cocci in blood culture 2, hypotensive not responded well to packed red blood cells and IV fluids and found to be in sepsis most likely sources from his peritoneal dialysis catheter leading to acute bacterial peritonitis but on differentials could be meningitis which is less likely given his chronic neck pain but confusion but he is covered with appropriate antibiotics. LP should be pursued but given his hypotension and physical condition along with coagulopathy we will hold on lumbar puncture for now. Echocardiogram to rule out endocarditis was negative on just thoracic echo and we might pursue transesophageal echo once he would be stable. During his ICU stay we will take care for the following problems Problem list 1. Sepsis most likely sources peritoneal dialysis catheter leading to acute peritonitis but our differentials could be meningitis which is less likely, other source could be his implantable loop recorder 2. Hypotension currently on aggressive IV hydration 3. History of atrial fibrillation 4. History of hypertension 5. Anemia most likely due to end-stage renal disease which contributes to versus hypotension 6. Hypotension which most likely is multifactorial including sepsis and/gram- positive cocci bacteremia, anemia and insensible losses through fever 7. History of multiple myeloma on chemotherapy(immunocompromise status) 8. Questionable adrenal insufficiency if so might be contributing to worse hypotension 9. End-stage renal disease on peritoneal dialysis 10. Type II VA most likely supply demand mismatch due to hypotension Plan: 1. We will monitor him in ICU 2. We will give him 1 L of normal saline bolus and will continue normal saline at rate 100 mL per hour with goal systolic blood pressure more than 90 and map of > 65. 3. Patient was already received 1 unit of packed red cell but his hemoglobin is still 6.5. We will give him another unit of blood and we will recheck his hemoglobin around 10 PM. 4. As patient was receiving Decadron during his chemotherapy and currently he is critically ill we will give him stress dose of steroids Solu-Cortef 100 mg every 8 hours for now. We will be cautious as he is in sepsis and we'll reassess him in the morning. We will also add on a.m. cortisol on morning lab. 5. We will hold antihypertensives and anticoagulation in anticipation of any interventional procedure. 6. We will continue vancomycin and ceftriaxone 2 g every 12 hours for now. He already received a dose of vancomycin thousand milligrams around 11 AM this morning. We will ask nephrology in the morning for next dose. 7. Adequate analgesia but we will keep an eye on his blood pressure not to give much of narcotics rather we can give IV Tylenol. We will avoid NSAIDs. Renal dialysis diet Pharmacological DVT prophylaxis Patient is full code Problem List: 1. Multiple myeloma 2. Hypotension Consult Acknowledgment - Thank you for your consult request. Nicanor Graham MD 10/27/17 1112: Assessment/Plan CRCU Other Findings/Comments: Nicanor Sarmiento M.D. have examined this patient, reviewed available EMR data, personally reviewed images, discussed with resident/PA/MAJOR APPLIANCE ASSEMBLY SUPERVISOR, discussed management plan with housestaff and nursing staff, discussed managment plan all of healthcare providers, discussed management plan with patient and/or family, agreed with resident/PA/MAJOR APPLIANCE ASSEMBLY SUPERVISOR. The past history and parts of the chart have been autopopulated. Impression 66 year old man * severe sepsis possible shock depending if needs pressors * Multiple Myeloma * renal failure Plan -f/u all strategic planning consultant recommendatoins -transfer to ICU for closer monitoring -abx and PD per consultants -LP held off given eliquis use and improved mental status TTS 45 min D/w plan of care ALPS for DVT prohpylaxis at all times Consult Acknowledgment - Thank you for your consult request.
--- NOTE | 2017-10-26 22:31 | Event Note ---
Event Note Event Note: Patient was transferred from telemetry to ICU around 4:30 PM due to hypotension/ sepsis. Patient was discussed with attending and bolus of normal saline along with 1 unit of packed red cell was given. Initially he was holding his blood pressure in 80s systolic but after finishing transfusion and and saline bolus his blood pressure still remains in 60s to 70s systolic. Patient was discussed again with attending Dr. Graham and he wants to place central line and start pressors. First I called surgical PA who was reluctant to place central line given high risk of bleeding as he received his Eliquis this morning, low platelets and high INR. I contacted Todd Royal MD and Dr. Graham few times and it was decided that surgical PA will come and place central line meanwhile patient was started on pressors through peripheral line around 10:30 PM which we can continue for 2-[address] we will place central line. Patient was discussed with Dr. Monzon and she came and assessed the patient as well. was present at bedside and was informed accordingly. I did rectal examination and guaiac him which came back negative Attending addendum: Patient was persistently hypotensive, peripheral levophed started, I assessed IJ with USG, vein was low volume and near close to carotid, patient was not able to position his neck appropriately making it further difficult. Being on Eliquis it was high risk procedure so consulted surgical team. PA did right IJ but xray mentioned malpositioning in subclavian and not in SVC, no e/o Pneumothorax. Levophed continued peripherally. Awaiting further recomendation from surgical team regarding the line.
[2017-10-26 23:12] LABS: ABSOLUTE BASOPHIL COUNT 0 /CUMM (0.0-0.2); ABSOLUTE EOSINOPHIL COUNT 0 /CUMM (0.0-0.7); ABSOLUTE GRANULOCYTE CT 4.2 /CUMM (1.4-6.5); ABSOLUTE LYMPH COUNT 0.2 /CUMM (1.2-3.4); ABSOLUTE MONOCYTE COUNT 0.3 /CUMM (0.10-0.60); BASOPHIL % 0 % (0.0-2.0); EOSINOPHIL % 0.1 % (0-5); HEMATOCRIT 22.9 % (42-52); MEAN CORPUSCULAR HGB 32.1 PG (27.0-31.0); MEAN CORPUSCULAR HGB CONC 33.3 G/DL (33.0-37.0); MEAN CORPUSCULAR VOLUME 96.3 FL (80.0-94.0); MEAN PLATELET VOLUME 9.5 FL (7.4-10.4); PLATELET COUNT 95 /CUMM (130-400); RBC DISTRIBUTION WIDTH 19.2 % (11.5-14.5); RED BLOOD CELL CT 2.37 /CUMM (4.70-6.10); WHITE BLOOD CELL COUNT 4.8 /CUMM (4.8-10.8)
[2017-10-26 23:13] LABS: GRANULOCYTE % 88.2 % (42.2-75.2)
[2017-10-27] VITALS: BP 78/50
--- NOTE | 2017-10-27 00:34 | Procedure ---
Minor Surgical Procedure Note Date of Procedure: 10/27/17 Procedure Note: Practitioner: Lissette Carrasco PA-C Supervising Physician: Dr. Mcdermott Indication: Lack of IV access, requiring pressors Consent: Informed consent was obtained from the patient and his . Risks and benefits were explained to them in detail including bleeding, infection, damage to nearby structures, and pneumothorax. They stated their understanding and all questions were answered. Procedure: The right side of the neck was chosen. The patient was lying in the trendelenburg position with head turned 45 degrees away from the insertion site. The skin was thoroughly sponged with chlorhexidine and allowed to dry. All persons involved were shielded with hairnets, facemasks and sterile gowns. With sterile-gloved hands the right neck area was draped with the large disposable sterile field provided in the kit. The skin and subcutaneous tissues superficial to the right internal jugular vein were anesthetized with 3 mL of 1% lidocaine. The carotid artery was palpated and avoided. The triangle formed by the clavicle and the two heads of the sternocleidomastoid muscle was identified. A finder needle was advanced at a 20-degree angle toward the ipsilateral nipple, lateral to the carotid pulse and slightly superior to the apex of the triangle until the flash chamber was seen to fill with blood. The needle was then held in place while the guide wire was advanced. The needle was then removed. A skin dilator was advanced over the guidewire and removed, then the triple-lumen catheter was advanced over the guide wire into proper position. The guide wire was removed and discarded. The ports were aspirated which showed good blood return indicating proper position into the vein and then carefully flushed with normal saline. The catheter was stabilized and sutured to the skin with 2-0 silk at 2 anchor ports. A sterile bio-occlusive dressing was placed over the catheter, including the insertion site. The patient tolerated the procedure well. Follow up Chest xray revealed no Pneumothorax but the line was ascending towards the axilla. Will d/w attending options for realignment. Condition: Stable EBL: 5-10cc Complications: TLC not in SVC
--- NOTE | 2017-10-27 00:46 | RADIOLOGY REPORT ---
EXAMINATION: XR PORTABLE CHEST CLINICAL INFORMATION: Central line placement COMPARISON: 10/25/2017 TECHNIQUE: Portable frontal view of the chest was obtained. FINDINGS: There is a new right internal jugular central venous catheter. The catheter extends laterally along the superior aspect of the right hemithorax. This could be positioned within the right subclavian vein. This does not extend to normal position in the superior vena cava. Cardiac Loop recorder overlies the heart. Low lung volumes. Perihilar opacity is similar to prior. Left basilar opacity is similar to prior. No pneumothorax or pleural effusion. The cardiomediastinal silhouette remains prominent. IMPRESSION: There is a new right internal jugular central venous catheter which extends to an abnormal position, possibly within the right subclavian vein. Recommend repositioning. No pneumothorax. Low lung volumes with similar perihilar prominence and left basilar opacity. This critical result was discussed with Lilly Coon MD by telephone at 10/27/2017 12:41 AM and it was ascertained that the content and urgency of the report was understood at the time of direct communication.
[2017-10-27 05:00] LABS: ABSOLUTE BASOPHIL COUNT 0 /CUMM (0.0-0.2); ABSOLUTE EOSINOPHIL COUNT 0 /CUMM (0.0-0.7); ABSOLUTE GRANULOCYTE CT 6.4 /CUMM (1.4-6.5); ABSOLUTE LYMPH COUNT 0.3 /CUMM (1.2-3.4); ABSOLUTE MONOCYTE COUNT 0.2 /CUMM (0.10-0.60); BASOPHIL % 0.1 % (0.0-2.0); EOSINOPHIL % 0 % (0-5); GRANULOCYTE % 92.5 % (42.2-75.2); HEMATOCRIT 23.1 % (42-52); MEAN CORPUSCULAR HGB 32.3 PG (27.0-31.0); MEAN CORPUSCULAR HGB CONC 33.6 G/DL (33.0-37.0); MEAN CORPUSCULAR VOLUME 96.3 FL (80.0-94.0); MEAN PLATELET VOLUME 8.6 FL (7.4-10.4); PLATELET COUNT 103 /CUMM (130-400); RBC DISTRIBUTION WIDTH 19.5 % (11.5-14.5); WHITE BLOOD CELL COUNT 6.9 /CUMM (4.8-10.8)
--- NOTE | 2017-10-27 07:03 | Event Note ---
Event Note Event Note: Situation: Talked to Dr Royal about regarding the patient's central line that was placed earlier tonight. Brief: The patient had a central line placed earlier into the R IJ. Post procedure CXR showed the central line to be somewhere along the right subclavian vein. Per conversation with Dr Royal, he suggested the central line can still be used but only for a few hours. However, he recommended that the central line position should be readjusted with IR guided fluroscopy. He does not suggests a femoral line at this time as the patient already has a line which can be readjusted easily with IR. A/R: further management per ICU team. Resident adenvir[place]iaum: Patient continue to be on Levophed through peripheral line, His Levophed was titrated up to 9 mcg (This is not reported to me by RN). Director Of Hemophilia request titrating Levophed down and obtain femoral line. I contacted the surgical PA who discussed the case with Dr. Royal who didn't recommend obtaining femoral line, he recommend to continue using peripheral line till central line reposition to the proper place through IR. Situation was discussed in details with the patient's who refused to let housestaff do femoral line. RN requested to titrate Levophed down. Morning team will decide weather to continue with plan to place femoral line OR to try realignement of cental line already placed through IR. Ham Stringer spoke to , please see social media intern note above for details.
--- NOTE | 2017-10-27 07:47 | PN- Hematology ---
Subjective Subjective: More alert, still complaint diffuse back pain, denied headaches 12 point review of systems otherwise unchanged. Patient specifically denies abdominal pain Objective Vital Signs and I&Os Vital Signs Date Time Temp Pulse Resp B/P B/P Pulse O2 O2 Flow FiO2 Mean Ox Delivery Rate 10/27 0614 77 18 96/75 10/27 0400 96 Nasal 2.0L Cannula 10/27 0000 98 Nasal 2.0L Cannula 10/27 0000 98.6 124 18 78/50 98 Nasal 2.0L Cannula 10/26 2229 99.6 116 20 74/46 10/26 2000 91 Nasal 2.0L Cannula 10/26 1600 93 Nasal 2.0L Cannula 10/26 1600 99.6 105 26 100/60 93 Nasal 2.0L Cannula 10/26 1600 94 Nasal 2.0L Cannula 10/26 1553 100.9 10/26 1500 100.9 100 20 90/66 100 10/26 1232 101.2 10/26 0800 97 Nasal 2.0L Cannula Intake & Output 10/27 0800 10/27 0000 10/26 1600 10/26 0800 10/26 0000 10/25 1600 Intake Total 1022 1944.4 676 973 3942 Output Total 100 1400 -600 -300 900 Balance 922 544.4 1020 650 -900 1000 Intake, Blood 350 Product Intake, IV 1022 1594.4 177 524 0210 Intake, Oral 50 Output, 100 1400 -600 -300 900 Dialysate Patient 174 lb 174 lb 161 lb 150 lb Weight Weight Bed scale Bed scale Bed scale Standing Scale Measurement Method Gen.: in NAD ENT: Sclera anicteric Chest: Normal respiratory effort, decrease breath sounds Cor: RRR, no extra sounds Abdomen: Soft, bowel sounds present, no significant tenderness, no rebound Extremities: Without clubbing, cyanosis, or asymmetric edema Neurology: Alert and oriented 3, no gross deficit Current Medications: Current Medications Sig/Christie Start time Last Medication Dose Route Stop Time Status Admin Acetaminophen 1,000 MG ONCE ONE 10/26 1100 DC 10/26 IV 10/26 1101 1232 Acyclovir 200 MG DAILY 10/26 1000 AC PO Apixaban 2.5 MG BID 10/25 2200 DC 10/26 PO 0827 Ceftriaxone Sodium 2,000 MG Q12 10/26 2100 AC 10/26 IV 2134 Ceftriaxone Sodium 1,000 MG ONCE ONE 10/26 1545 DC 10/26 IV 10/26 1546 1737 Ceftriaxone Sodium 1,000 MG DAILY 10/26 0900 DC 10/26 IV 1048 Dextrose/Sodium 1,000 ML Q20H 10/26 0815 DC 10/26 Chloride IV 0844 Heparin Sodium 5,000 UNIT Q8 10/26 2200 AC 10/27 (Porcine) SC 0600 Hydrocortisone 100 MG Q8 10/26 1724 AC 10/27 Sodium Succinate IV 0601 Lidocaine 0 .STK-MED ONE 10/26 1518 DC .ROUTE Lubiprostone 24 MCG BID 10/25 2200 AC 10/26 PO 2134 Magnesium Oxide 400 MG DAILY 10/25 1611 AC 10/26 PO 0827 Magnesium Sulfate 1 GM Q2H 10/27 0700 AC Dextrose/Water 100 ML IV 10/27 1059 Metoprolol Tartrate 6.25 MG BID 10/26 1310 DC PO Morphine Sulfate 2 MG ONCE ONE 10/26 1515 DC IV 10/26 1516 Morphine Sulfate 4 MG .STK-MED ONE 10/26 1514 DC IM 10/26 1515 Multivitamins 1 TAB DAILY 10/26 1000 AC PO Norepinephrine 4 MG Q24H 10/26 2230 AC 10/27 Sodium Chloride 250 ML IV 0614 Norepinephrine 4 MG .STK-MED ONE 10/26 2221 DC IV 10/26 2222 Oxycodone HCl 20 MG 0900,2100 10/26 0900 AC 10/26 PO 0827 Oxycodone HCl 10 MG Q4-6 PRN PRN 10/25 2315 AC PO Patient Medication 1 ED ONE ONE 10/26 1000 DC Teaching ED 10/26 1001 Prochlorperazine 10 MG Q6 PRN 10/25 1615 AC PO Sevelamer Carbonate 3,200 MG WM 10/25 1700 AC 10/26 PO 0827 Sevelamer Carbonate 1,600 MG TID PRN 10/25 1615 AC PO Sodium Chloride 1,000 ML Q10H 10/27 0315 AC 10/27 IV 10/27 2314 0601 Sodium Chloride 1,000 ML BOLUS ONE 10/26 1730 DC 10/26 IV 10/26 1829 1732 Sodium Chloride 1,000 ML Q13H 10/26 1715 DC IV 10/27 1914 Vancomycin HCl 1,000 MG ONCE ONE 10/26 0830 DC 10/26 Dextrose/Water 250 ML IV 10/26 0929 1048 Results Last 24 Hours of Lab Results: Laboratory Tests 10/27 10/26 8083 4637 Chemistry Sodium (137 - 145 mmol/L) 136 L Potassium (3.5 - 5.1 mmol/L) 4.1 Chloride (98 - 107 mmol/L) 98 Carbon Dioxide (22 - 30 mmol/L) 23 Anion Gap (5 - 16) 15 BUN (9 - 20 mg/dL) 62 H Creatinine (0.7 - 1.2 mg/dL) 11.1 *H Estimated GFR (>60 ml/min) 5 L Glucose (65 - 99 mg/dL) 145 H Calcium (8.4 - 10.2 mg/dL) 8.1 L Phosphorus (2.5 - 4.5 mg/dL) 6.9 H Magnesium (1.6 - 2.3 mg/dL) 1.4 L Total Bilirubin (0.2 - 1.3 mg/dL) 0.9 AST (17 - 59 U/L) 22 ALT (21 - 72 U/L) 29 Albumin (3.5 - 5.0 g/dL) 2.4 L Hematology CBC w Diff MAN DIFF ORDERED NO MAN DIFF REQ WBC (4.8 - 10.8 /CUMM) 6.9 4.8 RBC (4.70 - 6.10 /CUMM) 2.40 L 2.37 L Hgb (14.0 - 18.0 G/DL) 7.8 L 7.6 L Hct (42 - 52 %) 23.1 L 22.9 L MCV (80.0 - 94.0 FL) 96.3 H 96.3 H MCH (27.0 - 31.0 PG) 32.3 H 32.1 H MCHC (33.0 - 37.0 G/DL) 33.6 33.3 RDW (11.5 - 14.5 %) 19.5 H 19.2 H Plt Count (130 - 400 /CUMM) 103 L 95 L MPV (7.4 - 10.4 FL) 8.6 9.5 Gran % (42.2 - 75.2 %) 92.5 H 88.2 H Lymphocytes % (20.5 - 51.1 %) 4.8 L 5.1 L Monocytes % (1.7 - 9.3 %) 2.6 6.6 Eosinophils % (0 - 5 %) 0 0.1 Basophils % (0.0 - 2.0 %) 0.1 0 Absolute Granulocytes (1.4 - 6.5 /CUMM) 6.4 4.2 Segmented Neutrophils (42.2 - 75.2 %) 92 H Band Neutrophils (0.0 - 5.0 %) 2 Absolute Lymphocytes (1.2 - 3.4 /CUMM) 0.3 L 0.2 L Lymphocytes (20.5 - 51.1 %) 2 L Monocytes (1.7 - 9.3 %) 4 Absolute Monocytes (0.10 - 0.60 /CUMM) 0.2 0.3 Absolute Eosinophils (0.0 - 0.7 /CUMM) 0 0 Absolute Basophils (0.0 - 0.2 /CUMM) 0 0 Platelet Estimate (ADEQUATE) ADEQUATE Polychromasia 1+ Poikilocytosis 1+ Basophilic Stippling SLIGHT Ovalocytes 1+ Other Body Source Fld Total RBCs Counted (%) 100 Toxicology Random Vancomycin (ug/ml) 8.4 10/26 10/26 10/26 10/26 10/26 2043 1800 1758 1309 1300 Chemistry Sodium Cancelled Potassium Cancelled Chloride Cancelled Carbon Dioxide Cancelled Anion Gap Cancelled BUN Cancelled Creatinine Cancelled BUN/Creatinine Ratio Cancelled Lactic Acid (0.7 - 2.1 mmol/L) 1.6 1.1 Troponin I Cancelled Hematology CBC w Diff Cancelled WBC Cancelled RBC Cancelled Hgb Cancelled Hct Cancelled MCV Cancelled MCH Cancelled MCHC Cancelled RDW Cancelled Plt Count Cancelled MPV Cancelled Lymphocytes (%) 1 % Normal PMNs (%) 88 Other Body Source Fluid WBC (0 - 5 /CUMM) 678 H Fld Mesothelial Cells (%) 11 Fld Total RBCs Counted (0 /CUMM) 250 H 10/26 10/26 10/26 10/26 10/26 1235 1143 1143 1141 1141 Coagulation PT (9.4 - 12.5 SEC) 17.2 H INR (0.90 - 1.17) 1.57 H Other Body Source Fluid WBC Cancelled Fld Total RBCs Counted Cancelled Fluid Glucose Cancelled Fluid Total Protein Cancelled Fluid LDH Cancelled CSF WBC Cancelled CSF RBC Cancelled CSF Comment Cancelled CSF Glucose Cancelled CSF LDH Cancelled CSF Total Protein Cancelled Blood culture x2-GPC Assessment/Plan Hematology Assessment/Recommendations: 1. sepsis-unclear origin, requiring pressors, there is difficulty interpreting neck pain given his chronic diffuse back pain Recommend- As per ID 2. Multiple myeloma-chemotherapy on hold, transfuse red blood cells as needed The lengthy discussion today with Mr. and Mrs. Grant about his overall status. Please call over the weekend if any issues develop
--- NOTE | 2017-10-27 07:55 | PN- Resident CRCU ---
Joseph Huerta 10/27/17 0755: Subjective HPI/CRCU Issues: He was sleepy and somnolent this am. He was concerned about his neck pain, but reported to have improved compared to yesterday. Overnight, he was on levophed, and BP was on lower side. 24 Hour Events: Overnight, a central line was placed for an indication of low blood pressure. Since it extended into the right subclavian vein, it was thought to be either removed or repositioned. This morning, the decision was made to remove the central line, and would place a femoral line if needed. T-max 99.6, heart rate 90-120, blood pressure 60-96 systolic, diastolic 40-74, on levo fed 2-4 mcg/h, 2 L nasal cannula with 96% oxygen saturation. Input 2966 , output was not measured. A runoff A. fib was noted around 12 AM. In the morning, it was thought that he would need lumbar puncture for evaluation of meningitis. As per the instructional design specialist, the risks outweigh benefits in terms of bleeding and hence LP was deferred for later if needed. He is currently on ceftriaxone and vancomycin. Objective Vital Signs & I&O Last 8 Hrs of Vitals and I&O: Intake & Output 10/27 0800 Intake Total 1022 Output Total 2000 Balance -978 Intake, IV 1022 Output, 2000 Dialysate Exam General Appearance: alert, awake Other Physical Findings: General Exam: AAOx3, No acute distress, Skin: No rashes, no breakdown;HEENT: PERRLA, EOMI;Neck: Supple, pain upon moving the neck, no neck stiffness, No JVD, central line in place, no erythema or bleeding; No cervical lymphadenopathy;CVS: Reg Rate, Normal S1,S2, 2/6 systolic murmur;Resp: Normal air entry, no ronchi/ rales;Abdomen: Soft, No tenderness, Normal Bowel Sounds;Neuro: Normal Speech, Strength 5/5 b/l x 4 extremities, Sensation intact, CN III-XII NL, Reflexes 2+; Extremities: No cyanosis, no pedal edema Current Medications: Current Medications Sig/Christie Start time Last Medication Dose Route Stop Time Status Admin Acetaminophen 1,000 MG ONCE ONE 10/26 1100 DC 10/26 IV 10/26 1101 1232 Acyclovir 200 MG DAILY 04/12 1000 AC PO Apixaban 2.5 MG BID 10/25 2200 DC 10/26 PO 0827 Ceftriaxone Sodium 2,000 MG Q12 10/26 2100 AC 10/26 IV 2134 Ceftriaxone Sodium 1,000 MG ONCE ONE 10/26 1545 DC 10/26 IV 10/26 1546 1737 Ceftriaxone Sodium 1,000 MG DAILY 10/26 0900 DC 10/26 IV 1048 Dextrose/Sodium 1,000 ML Q20H 10/26 0815 DC 10/26 Chloride IV 0844 Heparin Sodium 5,000 UNIT Q8 10/26 2200 AC 10/27 (Porcine) SC 0600 Hydrocortisone 100 MG Q8 10/26 1724 AC 10/27 Sodium Succinate IV 0601 Lidocaine 0 .STK-MED ONE 10/26 1518 DC .ROUTE Lubiprostone 24 MCG BID 10/25 2200 AC 10/26 PO 2134 Magnesium Oxide 400 MG DAILY 10/25 1611 AC 10/26 PO 0827 Magnesium Sulfate 1 GM Q2H 10/27 0700 AC Dextrose/Water 100 ML IV 10/27 1059 Metoprolol Tartrate 6.25 MG BID 10/26 1310 DC PO Morphine Sulfate 2 MG ONCE ONE 10/26 1515 DC IV 10/26 1516 Morphine Sulfate 4 MG .STK-MED ONE 10/26 1514 DC IM 10/26 1515 Multivitamins 1 TAB DAILY 10/26 1000 AC PO Norepinephrine 4 MG Q24H 10/26 2230 AC 10/27 Sodium Chloride 250 ML IV 0614 Norepinephrine 4 MG .STK-MED ONE 10/26 2221 DC IV 10/26 2222 Oxycodone HCl 20 MG 0900,2100 10/26 0900 AC 10/26 PO 0827 Oxycodone HCl 10 MG Q4-6 PRN PRN 10/25 2315 AC PO Patient Medication 1 ED ONE ONE 10/26 1000 DC Teaching ED 10/26 1001 Prochlorperazine 10 MG Q6 PRN 10/25 1615 AC PO Sevelamer Carbonate 3,200 MG WM 10/25 1700 AC 10/26 PO 0827 Sevelamer Carbonate 1,600 MG TID PRN 10/25 1615 AC PO Sodium Chloride 1,000 ML Q10H 10/27 0315 AC 10/27 IV 10/27 2314 0601 Sodium Chloride 1,000 ML BOLUS ONE 10/26 1730 DC 10/26 IV 10/26 1829 1732 Sodium Chloride 1,000 ML Q13H 10/26 1715 DC IV 10/27 1914 Vancomycin HCl 1,000 MG ONCE ONE 10/26 0830 DC 10/26 Dextrose/Water 250 ML IV 10/26 0929 1048 Impression/Plan Impression/Problem List Impression: Mr Grant is a 66-year-old gentleman with history of multiple myeloma ( cyclophosphamide, bortezomib, dexamethasone + E Po-last chemo 10/18/2017), previously on hemodialysis, end-stage renal disease and currently on peritoneal dialysis every 12, came to the hospital with a chief concern of confusion, hypotension. At the time of admission, vitals-temperature 99.7, pulse rate 78, respirations 16, blood pressure 64-34 improved to 90/84, 92% on room air--> 96% on 2 L nasal cannula. Pertinent lab findings since the time of admission: WBC 8.6 (10/25)-->7.8 (10/27) Hemoglobin 7.3(10/25)-->6.4-->7.8(10/27)-received 2 units of PRBCs Platelet count 142(10/25)-->121-->103(10/27) BUN 66-->62 Serum creatinine 12.2-->11.1 Troponin 0.98, peaked at 1.77 Calcium level-within normal limits AST 19, ALT 24, alkaline phosphatase 58, albumin 3.2, INR 1.57 UA was not done Random vancomycin 8.4 (11/13) Blood cultures revealed gram-positive cocci in pairs and chains in 2 out of 2 bottles drawn on 10/26/2017. Peritoneal fluid cultures pending Peritoneal dialysis cell count: WBC 86 with 45% PMNs (10/25) WBC 678 with 88% PMNs (10/26) WBC 1528 with 93% PMNs (10/27) Chest x-ray 10/25-revealed hazy opacities in the right upper lung and left base given low lung volumes and distribution are favored to represent atelectasis. Echocardiogram oh 10/25- Normal global left ventricular size, wall thickness, systolic function with no obvious regional wall motion abnormalities. Normal left ventricular ejection fraction estimated at 65-70%.Right ventricular systolic pressure estimated to be elevated at 38 mHg.Hyperdynamic left ventricular systolic function. Normal Right ventricular systolic function. Head CT 10/25-Normal CT scan of the head. No evidence acute territorial infarct or hemorrhage. Chest CT without contrast 10/27- 1. Multi sublobar areas of consolidation consistent with pneumonia and/or atelectasis. These are in a similar distribution to that seen in 2017 but are worse. 2. New area of groundglass opacity apex right upper lobe.3. Trace bilateral pleural effusions. 4. Severe osteoporosis with numerous vertebral compression fractures. Etiology of this hypotensive episode, but resulted in altered mental status was most likely due to an infection leading to septic shock. The source of infection was unclear at the time of admission, with meningitis, lung, peritoneal fluid seemed the putative sources. Microbiology revealed growth of gram-positive cocci in pairs and chains, which could be pneumococcus making meningitis and pneumonia likely; however the symptoms do not match the microbiological findings so far. Other source of infection could be peritonitis secondary to peritoneal dialysis, but pneumococcus seems unlikely, but possible. He has been treated with ceftriaxone, and vancomycin as needed as per Vanco levels given peritoneal dialysis, would cover for strep pneumo (Even resistant species). In regards to his hypotension, which seems to be his baseline, would need volume resuscitation and consider midodrine to increase cardiac output, that said he already has hyperdynamic circulation. In regards to elevated troponin, would likely attribute it to type II [place]. If the peritoneal fluid cultures are positive for any other organism, other than gram-positive cocci would defer the decision to add another antibiotic. For now considering sepsis and septic shock, intravenous antibiotics are preferred or intraperitoneal antibiotics. Problem list: #1 septic shock, #2 anemia of chronic disease #3 multiple myeloma on chemotherapy #4 end-stage renal disease on peritoneal dialysis #5 back pain #6 thrombocytopenia #7 paroxysmal atrial fibrillation Plan: Respiratory- Continue supplemental oxygen, will titrate off as the patient tolerates. Consolidation in the lung, which is multi lobar could be considered as pneumonia , but persistent changes for the last few years as seen in previous chest CAT scans make this unlikely. Regardless, he is being treated with appropriate antibiotics. Infectious- Continue ceftriaxone 2 g daily, given a possibility of peritonitis also. Has been given a dose of vancomycin this morning, after checking a random vancomycin level. Re-dose vancomycin, after reviewing sensitivities for GPC's in the a.m. Monitor vitals and white count daily. Continue acyclovir prophylactic dose. Circulatory- Levophed peripherally as needed, which was titrated off. Volume resuscitation to be attempted, if needed for low blood pressures. Continue Midrin 5 mg p.o. 3 times daily If a central line is required, consider a femoral line. Monitor ins and outs closely. Hydrocortisone 100 mg IV 3 times daily was added for low blood pressure given recent use of dexamethasone and acute illness. Hematology- Transfuse 1 unit of PRBCs, if an acute change in H&H in the a.m. Guaiac stools. Monitor platelets. Hold anticoagulation for now. Metabolic- Peritoneal dialysis as per legal arbitrator recommendations. Heparin 2000 units per dialysis bag, as per legal arbitrator. Monitor for electrolyte shifts. Neurology- Watch for mental status changes. Continue pain medications at home dose. DVT prophylaxis-pharmacological. Restart subcutaneous heparin in the next 24-48 hours. Diet-heart healthy diet Housekeeping ICU : #1 Central kofi-dyhith-wpvan catheter was removed under aseptic conditions this morning. Tip was visualized, and pressure was applied for approximately 10 minutes. Assertained that there was no external evidence of bleeding after removal. Blood pressure stable. #2 Arterial line-none #3 Toro catheter-none #4 Rectal tube-none #5 NG tube-none #6 IV/peripheral line #7 IV drips- Normal saline #8 Vent settings: none #9 pressors: Levophed was discontinued. Used peripherally Problem List: 1. History of multiple myeloma 2. History of renal failure 3. Hypotension 4. Elevated troponin Pain Ratin Tomorrow's Labs & Rationales: cbc icu bundle Nicanor Graham MD 10/27/17 1114: Impression/Plan Plan DVT/Prophylaxis: mechanical Attending MD Review Statement Attending Sign Off Attending Cosign Statement: I have: examined this patient, reviewed avalbl EMR data, personally reviewd images, discussd w/resident/PA/SEMI CONDUCTOR ASSEMBLER, discussed mgmt plan w/homar, discussed mgmt plan w/CM, discussed mgmt plan w/pt, agreed w/resident/PA/SEMI CONDUCTOR ASSEMBLER, amended to note. Other Findings: INicanor M.D. have examined this patient, reviewed available EMR data, personally reviewed images, discussed with resident/PA/SEMI CONDUCTOR ASSEMBLER, discussed management plan with housestaff and nursing staff, discussed managment plan all of healthcare providers, discussed management plan with patient and/or family, agreed with resident/PA/SEMI CONDUCTOR ASSEMBLER. The past history and parts of the chart have been autopopulated. Impression 66 year old man * septic shock, however low bp at baseline - will titrate vasopressors to off * Multiple Myeloma * renal failure Plan -will titrate vasopressors to off -remove neck line -if vasopressors titrated no central access will be required -reduced suspicion of meningitis, LP held off given eliquis use and improved mental status -f/u all mgmt consultant recommendations -BP usually around 80's -abx and PD per consultants TTS 35 min D/w plan of care ALPS for DVT prohpylaxis at all times
[2017-10-27 08:00] VITALS: BP 106/76
--- NOTE | 2017-10-27 10:08 | PN- Nephrology ---
Assessment/Plan Nephrology Assessment: 1. ESRD: PD drain poor --> will need IP heparin & transfer set changed; peritonitis likely pneumococcus & secondary rather than primary, but if does not clear in next 48 hrs --> will need cath removed & change to temp HD 2. Sepsis: prob pneumoccocal; antibiotics per ID Suggestion: 1. heparin 2000 units each PD bag 2. transfer set change 3. continue IV Rocephin & Vanco; no IP antibiotics 4. daily PD cell counts 5. favor additional volume exapnsion re hypotension Subjective Subjective: More awake & alert No SOB No abd pain but PD drain & infuse poor overnight & drainage cloudy w reported fibrin Objective Vital Signs and I&Os Vital Signs Date Time Temp Pulse Resp B/P B/P Pulse O2 O2 Flow FiO2 Mean Ox Delivery Rate 10/27 0614 77 18 96/75 10/27 0400 96 Nasal 2.0L Cannula 10/27 0000 98 Nasal 2.0L Cannula 10/27 0000 98.6 124 18 78/50 98 Nasal 2.0L Cannula 10/26 2229 99.6 116 20 74/46 10/27 1999 91 Nasal 2.0L Cannula 10/26 1600 93 Nasal 2.0L Cannula 10/26 1600 99.6 105 26 100/60 93 Nasal 2.0L Cannula 10/26 1600 94 Nasal 2.0L Cannula 10/26 1553 100.9 10/26 1500 100.9 100 20 90/66 100 10/26 1232 101.2 Intake & Output 10/27 1600 10/27 0400 10/26 1600 10/26 0400 10/25 1600 10/25 0400 Intake Total 1022 1944.4 770 1000 Output Total 100 1400 -900 900 Balance 922 544.4 1670 -900 1000 Intake, Blood 350 Product Intake, IV 1022 1594.4 720 1000 Intake, Oral 50 Output, 100 1400 -900 900 Dialysate Patient 174 lb 174 lb 161 lb 150 lb Weight Weight Bed scale Bed scale Bed scale Standing Scale Measurement Method Physical Exam General Appearance: well developed/nourished, no apparent distress, alert, awake Head: atraumatic, normal appearance Ears, Nose, Throat: normal ENT inspection Neck: normal inspection, supple Respiratory: crackles (L base) Cardiovascular: regular rate/rhythm Abdomen: soft, no organomegaly, rebound (none) Extremities: no edema Neurologic/Psychiatric: awake, alert Skin: intact, normal color Current Medications: Current Medications Sig/Christie Start time Last Medication Dose Route Stop Time Status Admin Acetaminophen 1,000 MG ONCE ONE 10/26 1100 DC 10/26 IV 10/26 1101 1232 Acyclovir 200 MG DAILY 10/26 1000 AC PO Apixaban 2.5 MG BID 10/25 2200 DC 10/26 PO 0827 Ceftriaxone Sodium 2,000 MG Q12 10/26 2100 AC 10/26 IV 2134 Ceftriaxone Sodium 1,000 MG ONCE ONE 10/26 1545 DC 10/26 IV 10/26 1546 1737 Ceftriaxone Sodium 1,000 MG DAILY 10/26 0900 DC 10/26 IV 1048 Dextrose/Sodium 1,000 ML Q20H 10/26 0815 DC 10/26 Chloride IV 0844 Heparin Sodium 5,000 UNIT Q8 10/26 2200 AC 10/27 (Porcine) SC 0600 Hydrocortisone 100 MG Q8 10/26 1724 AC 10/27 Sodium Succinate IV 0601 Lidocaine 0 .STK-MED ONE 10/26 1518 DC .ROUTE Lubiprostone 24 MCG BID 10/25 2200 AC 10/26 PO 2134 Magnesium Oxide 400 MG DAILY 10/25 1611 AC 10/26 PO 0827 Magnesium Sulfate 1 GM Q2H 10/27 0700 AC Dextrose/Water 100 ML IV 10/27 1059 Metoprolol Tartrate 6.25 MG BID 10/26 1310 DC PO Morphine Sulfate 2 MG ONCE ONE 10/26 1515 DC IV 10/26 1516 Morphine Sulfate 4 MG .STK-MED ONE 10/26 1514 DC IM 10/26 1515 Multivitamins 1 TAB DAILY 10/26 1000 AC PO Norepinephrine 4 MG .STK-MED ONE 10/27 0034 DC IV 10/27 0035 Norepinephrine 4 MG Q24H 10/26 2230 AC 10/27 Sodium Chloride 250 ML IV 0614 Norepinephrine 4 MG .STK-MED ONE 10/26 2221 DC IV 10/26 2222 Oxycodone HCl 20 MG 0900,2100 10/26 0900 AC 10/26 PO 0827 Oxycodone HCl 10 MG Q4-6 PRN PRN 10/25 2315 AC 10/27 PO 0840 Patient Medication 1 ED ONE ONE 10/26 1000 DC Teaching ED 10/26 1001 Prochlorperazine 10 MG Q6 PRN 10/25 1615 AC PO Sevelamer Carbonate 3,200 MG WM 10/25 1700 AC 10/26 PO 0827 Sevelamer Carbonate 1,600 MG TID PRN 10/25 1615 AC PO Sodium Chloride 1,000 ML Q10H 10/27 0315 AC 10/27 IV 10/27 2314 0601 Sodium Chloride 1,000 ML BOLUS ONE 10/26 1730 DC 10/26 IV 10/26 1829 1732 Sodium Chloride 1,000 ML Q13H 10/26 1715 DC IV 10/27 1914 Results Pertinent Lab Results: Laboratory Tests 10/27 10/26 0405 2214 Chemistry Sodium (137 - 145 mmol/L) 136 L Potassium (3.5 - 5.1 mmol/L) 4.1 Chloride (98 - 107 mmol/L) 98 Carbon Dioxide (22 - 30 mmol/L) 23 Anion Gap (5 - 16) 15 BUN (9 - 20 mg/dL) 62 H Creatinine (0.7 - 1.2 mg/dL) 11.1 *H Estimated GFR (>60 ml/min) 5 L Glucose (65 - 99 mg/dL) 145 H Calcium (8.4 - 10.2 mg/dL) 8.1 L Phosphorus (2.5 - 4.5 mg/dL) 6.9 H Magnesium (1.6 - 2.3 mg/dL) 1.4 L Total Bilirubin (0.2 - 1.3 mg/dL) 0.9 AST (17 - 59 U/L) 22 ALT (21 - 72 U/L) 29 Albumin (3.5 - 5.0 g/dL) 2.4 L Hematology CBC w Diff MAN DIFF ORDERED NO MAN DIFF REQ WBC (4.8 - 10.8 /CUMM) 6.9 4.8 RBC (4.70 - 6.10 /CUMM) 2.40 L 2.37 L Hgb (14.0 - 18.0 G/DL) 7.8 L 7.6 L Hct (42 - 52 %) 23.1 L 22.9 L MCV (80.0 - 94.0 FL) 96.3 H 96.3 H MCH (27.0 - 31.0 PG) 32.3 H 32.1 H MCHC (33.0 - 37.0 G/DL) 33.6 33.3 RDW (11.5 - 14.5 %) 19.5 H 19.2 H Plt Count (130 - 400 /CUMM) 103 L 95 L MPV (7.4 - 10.4 FL) 8.6 9.5 Gran % (42.2 - 75.2 %) 92.5 H 88.2 H Lymphocytes % (20.5 - 51.1 %) 4.8 L 5.1 L Monocytes % (1.7 - 9.3 %) 2.6 6.6 Eosinophils % (0 - 5 %) 0 0.1 Basophils % (0.0 - 2.0 %) 0.1 0 Absolute Granulocytes (1.4 - 6.5 /CUMM) 6.4 4.2 Segmented Neutrophils (42.2 - 75.2 %) 92 H Band Neutrophils (0.0 - 5.0 %) 2 Absolute Lymphocytes (1.2 - 3.4 /CUMM) 0.3 L 0.2 L Lymphocytes (20.5 - 51.1 %) 2 L Monocytes (1.7 - 9.3 %) 4 Absolute Monocytes (0.10 - 0.60 /CUMM) 0.2 0.3 Absolute Eosinophils (0.0 - 0.7 /CUMM) 0 0 Absolute Basophils (0.0 - 0.2 /CUMM) 0 0 Platelet Estimate (ADEQUATE) ADEQUATE Polychromasia 1+ Poikilocytosis 1+ Basophilic Stippling SLIGHT Ovalocytes 1+ Other Body Source Fld Total RBCs Counted (%) 100 Toxicology Random Vancomycin (ug/ml) 8.4 10/26 10/26 10/26 10/26 10/26 2043 1800 1758 1309 1300 Chemistry Sodium Cancelled Potassium Cancelled Chloride Cancelled Carbon Dioxide Cancelled Anion Gap Cancelled BUN Cancelled Creatinine Cancelled BUN/Creatinine Ratio Cancelled Lactic Acid (0.7 - 2.1 mmol/L) 1.6 1.1 Troponin I Cancelled Hematology CBC w Diff Cancelled WBC Cancelled RBC Cancelled Hgb Cancelled Hct Cancelled MCV Cancelled MCH Cancelled MCHC Cancelled RDW Cancelled Plt Count Cancelled MPV Cancelled Lymphocytes (%) 1 % Normal PMNs (%) 88 Other Body Source Fluid WBC (0 - 5 /CUMM) 678 H Fld Mesothelial Cells (%) 11 Fld Total RBCs Counted (0 /CUMM) 250 H 10/26 10/26 10/26 10/26 10/26 1235 1143 1143 1141 1141 Coagulation PT (9.4 - 12.5 SEC) 17.2 H INR (0.90 - 1.17) 1.57 H Other Body Source Fluid WBC Cancelled Fld Total RBCs Counted Cancelled Fluid Glucose Cancelled Fluid Total Protein Cancelled Fluid LDH Cancelled CSF WBC Cancelled CSF RBC Cancelled CSF Comment Cancelled CSF Glucose Cancelled CSF LDH Cancelled CSF Total Protein Cancelled 10/26 10/26 10/26 0600 0600 0000 Chemistry Sodium (137 - 145 mmol/L) 137 Potassium (3.5 - 5.1 mmol/L) 3.8 Chloride (98 - 107 mmol/L) 97 L Carbon Dioxide (22 - 30 mmol/L) 23 Anion Gap (5 - 16) 18 H BUN (9 - 20 mg/dL) 64 H Creatinine (0.7 - 1.2 mg/dL) 11.9 *H Estimated GFR (>60 ml/min) 4 L BUN/Creatinine Ratio (7 - 25 %) 5.4 L Calcium (8.4 - 10.2 mg/dL) 8.3 L Phosphorus (2.5 - 4.5 mg/dL) 7.2 H Magnesium (1.6 - 2.3 mg/dL) 1.3 L Troponin I (<0.11 ng/ml) Cancelled 1.77 *H Cortisol AM Sample (4.46 - 22.7 ug/dL) 31.8 H Hematology CBC w Diff NO MAN DIFF REQ WBC (4.8 - 10.8 /CUMM) 5.4 RBC (4.70 - 6.10 /CUMM) 2.00 L Hgb (14.0 - 18.0 G/DL) 6.5 *L Hct (42 - 52 %) 19.6 *L MCV (80.0 - 94.0 FL) 98.1 H MCH (27.0 - 31.0 PG) 32.3 H MCHC (33.0 - 37.0 G/DL) 32.9 L RDW (11.5 - 14.5 %) 18.6 H Plt Count (130 - 400 /CUMM) 103 L MPV (7.4 - 10.4 FL) 8.5 Gran % (42.2 - 75.2 %) 89.1 H Lymphocytes % (20.5 - 51.1 %) 4.7 L Monocytes % (1.7 - 9.3 %) 6.1 Eosinophils % (0 - 5 %) 0 Basophils % (0.0 - 2.0 %) 0.1 Absolute Granulocytes (1.4 - 6.5 /CUMM) 4.8 Absolute Lymphocytes (1.2 - 3.4 /CUMM) 0.3 L Lymphocytes (%) 18 Absolute Monocytes (0.10 - 0.60 /CUMM) 0.3 Absolute Eosinophils (0.0 - 0.7 /CUMM) 0 Absolute Basophils (0.0 - 0.2 /CUMM) 0 % Normal PMNs (%) 45 Misc Hematology Test (%) Other Body Source Fluid WBC (0 - 5 /CUMM) 86 H Fld Total RBCs Counted (0 /CUMM) 24 H 10/25 10/25 2248 1620 Chemistry Lactic Acid (0.7 - 2.1 mmol/L) 1.3 Troponin I (<0.11 ng/ml) 1.28 *H 1.23 *H Hematology CBC w Diff NO MAN DIFF REQ WBC (4.8 - 10.8 /CUMM) 5.9 RBC (4.70 - 6.10 /CUMM) 1.93 L Hgb (14.0 - 18.0 G/DL) 6.4 *L Hct (42 - 52 %) 19.2 *L MCV (80.0 - 94.0 FL) 99.6 H MCH (27.0 - 31.0 PG) 33.2 H MCHC (33.0 - 37.0 G/DL) 33.3 RDW (11.5 - 14.5 %) 17.9 H Plt Count (130 - 400 /CUMM) 121 L MPV (7.4 - 10.4 FL) 8.4 Gran % (42.2 - 75.2 %) 92.3 H Lymphocytes % (20.5 - 51.1 %) 3.4 L Monocytes % (1.7 - 9.3 %) 4.3 Eosinophils % (0 - 5 %) 0 Basophils % (0.0 - 2.0 %) 0 Absolute Granulocytes (1.4 - 6.5 /CUMM) 5.4 Absolute Lymphocytes (1.2 - 3.4 /CUMM) 0.2 L Absolute Monocytes (0.10 - 0.60 /CUMM) 0.3 Absolute Eosinophils (0.0 - 0.7 /CUMM) 0 Absolute Basophils (0.0 - 0.2 /CUMM) 0 10/25 10/25 1002 0942 Chemistry Sodium (137 - 145 mmol/L) 139 Potassium (3.5 - 5.1 mmol/L) 3.8 Chloride (98 - 107 mmol/L) 92 L Carbon Dioxide (22 - 30 mmol/L) 24 Anion Gap (5 - 16) 23 H BUN (9 - 20 mg/dL) 66 H Creatinine (0.7 - 1.2 mg/dL) 12.2 *H Estimated GFR (>60 ml/min) 4 L BUN/Creatinine Ratio (7 - 25 %) 5.4 L Glucose (65 - 99 mg/dL) 122 H Calcium (8.4 - 10.2 mg/dL) 8.9 Total Bilirubin (0.2 - 1.3 mg/dL) 0.7 AST (17 - 59 U/L) 19 ALT (21 - 72 U/L) 24 Alkaline Phosphatase (< 127 U/L) 58 Troponin I (<0.11 ng/ml) 0.98 *H Total Protein (6.3 - 8.2 g/dL) 7.3 Albumin (3.5 - 5.0 g/dL) 3.2 L Globulin (1.9 - 4.2 gm/dL) 4.1 Albumin/Globulin Ratio (1.1 - 2.2 %) 0.8 L TSH &T3 &Free T4 Intrp (0.27 - 4.20 uIU/mL) 2.240 Hematology CBC w Diff MAN DIFF ORDERED WBC (4.8 - 10.8 /CUMM) 8.6 RBC (4.70 - 6.10 /CUMM) 2.20 L Hgb (14.0 - 18.0 G/DL) 7.3 *L Hct (42 - 52 %) 21.6 L MCV (80.0 - 94.0 FL) 98.2 H MCH (27.0 - 31.0 PG) 33.1 H MCHC (33.0 - 37.0 G/DL) 33.7 RDW (11.5 - 14.5 %) 17.5 H Plt Count (130 - 400 /CUMM) 142 MPV (7.4 - 10.4 FL) 8.4 Gran % (42.2 - 75.2 %) 91.4 H Lymphocytes % (20.5 - 51.1 %) 3.3 L Monocytes % (1.7 - 9.3 %) 5.2 Eosinophils % (0 - 5 %) 0 Basophils % (0.0 - 2.0 %) 0.1 Absolute Granulocytes (1.4 - 6.5 /CUMM) 7.9 H Absolute Lymphocytes (1.2 - 3.4 /CUMM) 0.3 L Absolute Monocytes (0.10 - 0.60 /CUMM) 0.4 Absolute Eosinophils (0.0 - 0.7 /CUMM) 0 Absolute Basophils (0.0 - 0.2 /CUMM) 0 Platelet Estimate (ADEQUATE) VERIFIED BY SMEAR Polychromasia 1+ Anisocytosis 1+ Toxicology Methadone Screen Cancelled Barbiturate Screen Cancelled Ur Phencyclidine Scrn Cancelled Amphetamines Screen Cancelled U Benzodiazepines Scrn Cancelled Urine Cocaine Screen Cancelled Urine Cannabis Screen Cancelled Serum Alcohol (<10 MG/DL) < 10.0 Urines Urine Color Cancelled Urine Clarity Cancelled Urine pH Cancelled Ur Specific Irene Cancelled Urine Protein Cancelled Urine Ketones Cancelled Urine Nitrite Cancelled Urine Bilirubin Cancelled Urine Urobilinogen Cancelled Ur Leukocyte Esterase Cancelled Ur Microscopic Cancelled Urine Hemoglobin Cancelled Urine Glucose Cancelled Imaging/Other Studies: CXR: There is a new right internal jugular central venous catheter which extends to an abnormal position, possibly within the right subclavian vein. Recommend repositioning. No pneumothorax. Low lung volumes with similar perihilar prominence and left basilar opacity Echo: Suboptimal views. Hyperdynamic left ventricular systolic function. Normal Right ventricular systolic function. No significant valvular abnormalities noted
--- NOTE | 2017-10-27 11:21 | PN- Cardiology ---
Subjective Subjective: Now in the ICU. On low-dose pressors. No dizziness. No chest pain, dyspnea, or palpitations. Objective Vital Signs and I&Os Vital Signs Date Time Temp Pulse Resp B/P B/P Pulse O2 O2 Flow FiO2 Mean Ox Delivery Rate 10/27 0614 77 18 96/75 10/27 0400 96 Nasal 2.0L Cannula 10/27 0000 98 Nasal 2.0L Cannula 10/27 0000 98.6 124 18 78/50 98 Nasal 2.0L Cannula 10/26 2229 99.6 116 20 74/46 10/26 2000 91 Nasal 2.0L Cannula 10/26 1600 93 Nasal 2.0L Cannula 10/26 1600 99.6 105 26 100/60 93 Nasal 2.0L Cannula 10/26 1600 94 Nasal 2.0L Cannula 10/26 1553 100.9 10/26 1500 100.9 100 20 90/66 100 10/26 1232 101.2 Intake & Output 10/27 1600 10/27 0800 10/27 0000 10/26 1600 10/26 0800 10/26 0000 Intake Total 1022 1944.4 420 350 Output Total 100 1400 -600 -300 900 Balance 922 544.4 1020 650 -900 Intake, Blood 350 Product Intake, IV 1022 1594.4 370 350 Intake, Oral 50 Output, 100 1400 -600 -300 900 Dialysate Patient 174 lb 174 lb 161 lb Weight Weight Bed scale Bed scale Bed scale Measurement Method Physical Exam: General: no apparent distress. Alert. Eyes: No obvious scleral icterus. HEENT: Right IJ noted Cardiovascular: Normal intensity S1/S2. Regular Respiratory: Lungs clear to auscultation bilaterally. Abdomen: Soft, nontender with no guarding or rebound tenderness. Musculoskeletal: No clubbing or cyanosis noted, no edema Skin: Warm Neurologic: No gross focal deficits noted. Current Medications: Current Medications Sig/Christie Start time Last Medication Dose Route Stop Time Status Admin Acyclovir 200 MG DAILY 10/26 1000 AC 10/27 PO 1039 Apixaban 2.5 MG BID 10/25 2199 DC 10/26 PO 08 Ceftriaxone Sodium 2,000 MG 10/27 AC IV Ceftriaxone Sodium 2,000 MG Q12 10/26 2100 DC 10/26 IV 2134 Ceftriaxone Sodium 1,000 MG ONCE ONE 10/26 1545 DC 10/26 IV 10/26 1546 1737 Ceftriaxone Sodium 1,000 MG DAILY 10/26 0900 DC 10/26 IV 1048 Dextrose/Sodium 1,000 ML Q20H 10/26 0815 DC 10/26 Chloride IV 0844 Heparin Sodium 2,000 UNIT PER PROTOCL PRN 10/27 1015 AC (Porcine) IP Heparin Sodium 5,000 UNIT Q8 10/26 2200 AC 10/27 (Porcine) SC 0600 Hydrocortisone 100 MG Q8 10/26 1724 AC 10/27 Sodium Succinate IV 0601 Lidocaine 0 .STK-MED ONE 10/27 1028 DC .ROUTE Lidocaine 0 .STK-MED ONE 10/26 1518 DC .ROUTE Lubiprostone 24 MCG BID 10/25 2200 AC 10/27 PO 1039 Magnesium Oxide 400 MG DAILY 10/25 1611 AC 10/27 PO 1039 Magnesium Sulfate 1 GM Q2H 10/27 0700 DC 10/27 Dextrose/Water 100 ML IV 10/27 1059 1039 Metoprolol Tartrate 6.25 MG BID 10/26 1310 DC PO Midodrine 5 MG 0800,1200,1600 10/27 1200 AC PO Morphine Sulfate 2 MG ONCE ONE 10/26 1515 DC IV 10/26 1516 Morphine Sulfate 4 MG .STK-MED ONE 10/26 1514 DC IM 10/26 1515 Multivitamins 1 TAB DAILY 10/26 1000 AC 10/27 PO 1039 Non-Formulary 0 SEE ADMIN CRITERIA 10/27 1015 CAN Medication ANY Norepinephrine 4 MG .STK-MED ONE 10/27 0034 DC IV 10/27 0035 Norepinephrine 4 MG Q24H 10/26 2230 AC 10/27 Sodium Chloride 250 ML IV 0614 Norepinephrine 4 MG .STK-MED ONE 10/26 2221 DC IV 10/26 2222 Oxycodone HCl 20 MG 0900,2100 10/26 0900 AC 10/26 PO 0827 Oxycodone HCl 10 MG Q4-6 PRN PRN 10/25 2315 AC 10/27 PO 0840 Prochlorperazine 10 MG Q6 PRN 10/25 1615 AC PO Sevelamer Carbonate 3,200 MG WM 10/25 1700 AC 10/27 PO 0800 Sevelamer Carbonate 1,600 MG TID PRN 10/25 1615 AC PO Sodium Chloride 500 ML BOLUS ONE 10/27 1100 AC IV 10/27 1159 Sodium Chloride 1,000 ML Q10H 10/27 1000 DC IV 10/27 1959 Sodium Chloride 1,000 ML Q10H 10/27 0315 AC 10/27 IV 10/27 2314 0601 Sodium Chloride 1,000 ML BOLUS ONE 10/26 1730 DC 10/26 IV 10/26 1829 1732 Sodium Chloride 1,000 ML Q13H 10/26 1715 DC IV 10/27 1914 Vancomycin HCl 1,000 MG ONCE ONE 10/27 1045 AC Dextrose/Water 250 ML IV 10/27 1144 Results Last 48 Hrs of Labs/Mics: Laboratory Tests 10/27/17 0405: Anion Gap 15, Estimated GFR 5 L, Glucose 145 H, Calcium 8.1 L, Phosphorus 6.9 H, Magnesium 1.4 L, Total Bilirubin 0.9, AST 22, ALT 29, Albumin 2.4 L, CBC w Diff MAN DIFF ORDERED, RBC 2.40 L, MCV 96.3 H, MCH 32.3 H, MCHC 33.6, RDW 19.5 H, MPV 8.6, Gran % 92.5 H, Lymphocytes % 4.8 L, Monocytes % 2.6, Eosinophils % 0, Basophils % 0.1, Absolute Granulocytes 6.4, Segmented Neutrophils 92 H, Band Neutrophils 2, Absolute Lymphocytes 0.3 L, Lymphocytes 2 L, Monocytes 4, Absolute Monocytes 0.2, Absolute Eosinophils 0, Absolute Basophils 0, Platelet Estimate ADEQUATE, Polychromasia 1+, Poikilocytosis 1+, Basophilic Stippling SLIGHT, Ovalocytes 1+, Fld Total RBCs Counted 100, Random Vancomycin 8.4 10/26/174: CBC w Diff NO MAN DIFF REQ, RBC 2.37 L, MCV 96.3 H, MCH 32.1 H, MCHC 33.3, RDW 19.2 H, MPV 9.5, Gran % 88.2 H, Lymphocytes % 5.1 L, Monocytes % 6.6, Eosinophils % 0.1, Basophils % 0, Absolute Granulocytes 4.2, Absolute Lymphocytes 0.2 L, Absolute Monocytes 0.3, Absolute Eosinophils 0, Absolute Basophils 0 10/26/173: Lactic Acid 1.6 10/26/17 1800: Sodium Cancelled, Potassium Cancelled, Chloride Cancelled, Carbon Dioxide Cancelled, Anion Gap Cancelled, BUN Cancelled, Creatinine Cancelled, BUN/ Creatinine Ratio Cancelled, CBC w Diff Cancelled, WBC Cancelled, RBC Cancelled, Hgb Cancelled, Hct Cancelled, MCV Cancelled, MCH Cancelled, MCHC Cancelled, RDW Cancelled, Plt Count Cancelled, MPV Cancelled 10/26/17 1758: Lactic Acid 1.1 10/26/17 1309: Troponin I Cancelled 10/26/17 1300: Lymphocytes 1, % Normal PMNs 88, Fluid WBC 678 H, Fld Mesothelial Cells 11, Fld Total RBCs Counted 250 H 10/26/17 1235: PT 17.2 H, INR 1.57 H 10/26/17 1143: CSF Glucose Cancelled, CSF LDH Cancelled, CSF Total Protein Cancelled 10/26/17 1143: CSF WBC Cancelled, CSF RBC Cancelled, CSF Comment Cancelled 10/26/17 1141: Fluid WBC Cancelled, Fld Total RBCs Counted Cancelled 10/26/17 1141: Fluid Glucose Cancelled, Fluid Total Protein Cancelled, Fluid LDH Cancelled 10/26/17 0600: Troponin I Cancelled 10/26/17 0600: Anion Gap 18 H, Estimated GFR 4 L, BUN/Creatinine Ratio 5.4 L, Calcium 8.3 L , Phosphorus 7.2 H, Magnesium 1.3 L, Troponin I 1.77 *H, Cortisol AM Sample 31.8 H, CBC w Diff NO MAN DIFF REQ, RBC 2.00 L, MCV 98.1 H, MCH 32.3 H, MCHC 32.9 L, RDW 18.6 H, MPV 8.5, Gran % 89.1 H, Lymphocytes % 4.7 L, Monocytes % 6.1, Eosinophils % 0, Basophils % 0.1, Absolute Granulocytes 4.8, Absolute Lymphocytes 0.3 L, Absolute Monocytes 0.3, Absolute Eosinophils 0, Absolute Basophils 0 10/26/17 0000: Lymphocytes 18, % Normal PMNs 45, Misc Hematology Test , Fluid WBC 86 H, Fld Total RBCs Counted 24 H 10/25/17 2248: Troponin I 1.28 *H, CBC w Diff NO MAN DIFF REQ, RBC 1.93 L, MCV 99.6 H, MCH 33.2 H, MCHC 33.3, RDW 17.9 H, MPV 8.4, Gran % 92.3 H, Lymphocytes % 3.4 L, Monocytes % 4.3, Eosinophils % 0, Basophils % 0, Absolute Granulocytes 5.4, Absolute Lymphocytes 0.2 L, Absolute Monocytes 0.3, Absolute Eosinophils 0, Absolute Basophils 0 10/25/17 1620: Lactic Acid 1.3, Troponin I 1.23 *H Recent Imaging Studies: Telemetry tracings are personally reviewed and showed sinus rhythm with some atrial fibrillation cxr: There is a new right internal jugular central venous catheter which extends to an abnormal position, possibly within the right subclavian vein. Recommend repositioning. No pneumothorax. Low lung volumes with similar perihilar prominence and left basilar opacity. Assessment/Plan Assessment/Plan 1. Hypotension 2. multiple myeloma 3. anemia requiring transfusion 4. paroxysmal atrial fibrillation on low-dose eliquis and with implantable loop recorder 5. end-stage renal disease on peritoneal dialysis 6. history of hypertension on outpatient low-dose coreg 7. Elevated troponin due to end-stage renal disease and hypotension 8. Septic shock Patient was transferred to the ICU and is now on low-dose pressors. I had an extensive discussion with the patient, medical team, and Dr. Prado and I recommend holding off on spinal tap today as he did get a dose of Eliquis yesterday. Okay to continue to hold Eliquis for now as he does have a low atrial fibrillation burden which I monitor via his implantable loop recorder. We will hopefully be able to wean him off the low-dose pressors as he responds to the antibiotic therapy. Agustín Cosby MD [facility] Continue telemetry? Yes
--- NOTE | 2017-10-27 11:34 | PN- Infect Dx ---
Subjective Subjective: MAXIMUM TEMPERATURE 101.2, now on steroids. He was moved into the ICU yesterday because of hypotension, requiring Levophed, which was given via a peripheral IV as the right IJ triple-lumen catheter was not in proper position. He feels improved though still complains of neck pain. Objective Last 24 Hrs of Vital Signs/I&O Vital Signs Date Time Temp Pulse Resp B/P B/P Pulse O2 O2 Flow FiO2 Mean Ox Delivery Rate 10/27 0514 77 18 96/75 10/27 0400 96 Nasal 2.0L Cannula 10/27 0000 98 Nasal 2.0L Cannula 10/27 0000 98.6 124 18 78/50 98 Nasal 2.0L Cannula 10/26 2229 99.6 116 20 74/46 10/26 2000 91 Nasal 2.0L Cannula 10/26 1600 93 Nasal 2.0L Cannula 10/26 1600 99.6 105 26 100/60 93 Nasal 2.0L Cannula 10/26 1600 94 Nasal 2.0L Cannula 10/26 1553 100.9 10/26 1500 100.9 100 20 90/66 100 10/26 1232 101.2 Intake & Output 10/27 1600 10/27 0800 10/27 0000 Intake Total 1022 1944.4 Output Total 100 1400 Balance 922 544.4 Intake, Blood 350 Product Intake, IV 1022 1594.4 Output, 100 1400 Dialysate Patient 174 lb Weight Weight Bed scale Measurement Method Physical Exam Other Physical Findings: He is more awake and alert and appears more comfortable Neck supple, with some resistance to rotation; right IJ triple-lumen catheter with no inflammation at the site Lungs are clear Heart regular rhythm with a 1/6 systolic ejection murmur Abdomen is mildly distended, mildly tender to palpation, with positive bowel sounds; peritoneal fluid is cloudy Extremities no cyanosis, clubbing or edema Results Last 24 Hours of Lab Results: Laboratory Tests 10/27 10/26 0405 2214 Chemistry Sodium (137 - 145 mmol/L) 136 L Potassium (3.5 - 5.1 mmol/L) 4.1 Chloride (98 - 107 mmol/L) 98 Carbon Dioxide (22 - 30 mmol/L) 23 Anion Gap (5 - 16) 15 BUN (9 - 20 mg/dL) 62 H Creatinine (0.7 - 1.2 mg/dL) 11.1 *H Estimated GFR (>60 ml/min) 5 L Glucose (65 - 99 mg/dL) 145 H Calcium (8.4 - 10.2 mg/dL) 8.1 L Phosphorus (2.5 - 4.5 mg/dL) 6.9 H Magnesium (1.6 - 2.3 mg/dL) 1.4 L Total Bilirubin (0.2 - 1.3 mg/dL) 0.9 AST (17 - 59 U/L) 22 ALT (21 - 72 U/L) 29 Albumin (3.5 - 5.0 g/dL) 2.4 L Hematology CBC w Diff MAN DIFF ORDERED NO MAN DIFF REQ WBC (4.8 - 10.8 /CUMM) 6.9 4.8 RBC (4.70 - 6.10 /CUMM) 2.40 L 2.37 L Hgb (14.0 - 18.0 G/DL) 7.8 L 7.6 L Hct (42 - 52 %) 23.1 L 22.9 L MCV (80.0 - 94.0 FL) 96.3 H 96.3 H MCH (27.0 - 31.0 PG) 32.3 H 32.1 H MCHC (33.0 - 37.0 G/DL) 33.6 33.3 RDW (11.5 - 14.5 %) 19.5 H 19.2 H Plt Count (130 - 400 /CUMM) 103 L 95 L MPV (7.4 - 10.4 FL) 8.6 9.5 Gran % (42.2 - 75.2 %) 92.5 H 88.2 H Lymphocytes % (20.5 - 51.1 %) 4.8 L 5.1 L Monocytes % (1.7 - 9.3 %) 2.6 6.6 Eosinophils % (0 - 5 %) 0 0.1 Basophils % (0.0 - 2.0 %) 0.1 0 Absolute Granulocytes (1.4 - 6.5 /CUMM) 6.4 4.2 Segmented Neutrophils (42.2 - 75.2 %) 92 H Band Neutrophils (0.0 - 5.0 %) 2 Absolute Lymphocytes (1.2 - 3.4 /CUMM) 0.3 L 0.2 L Lymphocytes (20.5 - 51.1 %) 2 L Monocytes (1.7 - 9.3 %) 4 Absolute Monocytes (0.10 - 0.60 /CUMM) 0.2 0.3 Absolute Eosinophils (0.0 - 0.7 /CUMM) 0 0 Absolute Basophils (0.0 - 0.2 /CUMM) 0 0 Platelet Estimate (ADEQUATE) ADEQUATE Polychromasia 1+ Poikilocytosis 1+ Basophilic Stippling SLIGHT Ovalocytes 1+ Other Body Source Fld Total RBCs Counted (%) 100 Toxicology Random Vancomycin (ug/ml) 8.4 10/26 10/26 10/26 10/26 10/26 2043 1800 1758 1309 1300 Chemistry Sodium Cancelled Potassium Cancelled Chloride Cancelled Carbon Dioxide Cancelled Anion Gap Cancelled BUN Cancelled Creatinine Cancelled BUN/Creatinine Ratio Cancelled Lactic Acid (0.7 - 2.1 mmol/L) 1.6 1.1 Troponin I Cancelled Hematology CBC w Diff Cancelled WBC Cancelled RBC Cancelled Hgb Cancelled Hct Cancelled MCV Cancelled MCH Cancelled MCHC Cancelled RDW Cancelled Plt Count Cancelled MPV Cancelled Lymphocytes (%) 1 % Normal PMNs (%) 88 Other Body Source Fluid WBC (0 - 5 /CUMM) 678 H Fld Mesothelial Cells (%) 11 Fld Total RBCs Counted (0 /CUMM) 250 H 10/26 10/26 10/26 10/26 10/26 1235 1143 1143 1141 1141 Coagulation PT (9.4 - 12.5 SEC) 17.2 H INR (0.90 - 1.17) 1.57 H Other Body Source Fluid WBC Cancelled Fld Total RBCs Counted Cancelled Fluid Glucose Cancelled Fluid Total Protein Cancelled Fluid LDH Cancelled CSF WBC Cancelled CSF RBC Cancelled CSF Comment Cancelled CSF Glucose Cancelled CSF LDH Cancelled CSF Total Protein Cancelled Last 24 Hours of [place] Results: Blood cultures 2 October 26 positive for probable strep pneumoniae, sensitivities pending Peritoneal fluid culture October 26 negative, with gram stain revealing few white blood cells and rare gram-positive cocci in pairs Recent Imaging Studies: Chest x-ray October 27 reveals low lung volumes with perihilar prominence and left basilar opacity Assessment/Plan ID Impression: Improved with temperatures normal (now on steroids) and with white blood cell count remaining normal on Vancomycin and Ceftriaxone for probable pneumococcal sepsis of unclear etiology. Possible sources include meningitis, with his mental status much improved today, pneumonia, though his respiratory status appears stable and chest x-ray is negative for any consolidation, and peritonitis secondary to his Tenckhoff catheter, with a repeat cell count of the peritoneal fluid yesterday revealing nearly 600 neutrophils and with the gram stain of the peritoneal fluid positive. If his dialysate fluid remains cloudy the catheter may need to be removed, in which case he would have to be placed on hemodialysis. The lumbar puncture was deferred yesterday secondary to his hypotension and, as he received Eliquis yesterday morning, it is felt to be too risky to pursue at this time. He can be continued on empiric treatment for meningitis pending further evaluation. The appropriate dose of Ceftriaxone for meningitis in patients with renal failure is not clear and, after discussion with pharmacy, his dose can be reduced. Suggestion: 1. Follow-up final blood and peritoneal fluid cultures 2. Follow peritoneal fluid cell count and cultures daily 3. May need to hold Eliquis in anticipation of possible procedures/line placement (discussed with Cardiology) 4. Re-dose with Vancomycin 1 g IV 1 today pending final blood cultures 5. Decrease Ceftriaxone to 2 g IV every [address] García will be covering over the weekend
[2017-10-27 16:00] VITALS: BP 88/60
--- NOTE | 2017-10-27 17:03 | CT SCAN REPORT ---
EXAMINATION: CT CHEST WITHOUT CONTRAST CLINICAL INFORMATION: 66-year-old male patient with presumptive diagnosis of pneumonia. Growth of Gram-positive cocci. COMPARISON: Portable chest x-ray done earlier today. CT of the chest on October 23, 2016. TECHNIQUE: Multidetector volumetric CT imaging of the chest was done. Axial MIP volume rendering provided. Sagittal and coronal reformatted images were obtained. DLP: 265 mGy-cm FINDINGS: [employer]: Noncontributory. Gastric distention by air and gaseous distention of the transverse colon LUNGS: A focal area of peripheral groundglass opacity is located in the right apex. In addition, there are segmental and subsegmental areas of consolidation with air bronchograms located in both lower lobes and the posterior segment of the right upper lobe. Similar findings were noted on a chest CT done 1 year ago MEDIASTINUM: No gross adenopathy. PLEURA: There are bilateral trace pleural effusions. AXILLA: No lymphadenopathy. UPPER ABDOMEN: Free fluid and air in the abdomen are secondary to peritoneal dialysis. OSSEOUS STRUCTURES: Again there is severe osteoporosis with numerous vertebral compression fractures of the thoracic and upper lumbar spine. There is near vertebral plana at T6, T7, and T8 as well as L1. IMPRESSION: 1. Multi sublobar areas of consolidation consistent with pneumonia and/or atelectasis. These are in a similar distribution to that seen in 2017 but are worse. 2. New area of groundglass opacity apex right upper lobe. 3. Trace bilateral pleural effusions. 4. Severe osteoporosis with numerous vertebral compression fractures.
[2017-10-28] VITALS: BP 84/60
[2017-10-28 02:00] VITALS: BP 84/60
[2017-10-28 04:18] LABS: ABSOLUTE BASOPHIL COUNT 0 /CUMM (0.0-0.2); ABSOLUTE EOSINOPHIL COUNT 0 /CUMM (0.0-0.7); ABSOLUTE GRANULOCYTE CT 4.6 /CUMM (1.4-6.5); ABSOLUTE LYMPH COUNT 0.8 /CUMM (1.2-3.4); ABSOLUTE MONOCYTE COUNT 0.2 /CUMM (0.10-0.60); BASOPHIL % 0 % (0.0-2.0); EOSINOPHIL % 0 % (0-5); GRANULOCYTE % 81.5 % (42.2-75.2); HEMATOCRIT 22.7 % (42-52); MEAN CORPUSCULAR HGB 32.4 PG (27.0-31.0); MEAN CORPUSCULAR HGB CONC 33.6 G/DL (33.0-37.0); MEAN CORPUSCULAR VOLUME 96.4 FL (80.0-94.0); MEAN PLATELET VOLUME 8.2 FL (7.4-10.4); PLATELET COUNT 85 /CUMM (130-400); RED BLOOD CELL CT 2.36 /CUMM (4.70-6.10); WHITE BLOOD CELL COUNT 5.7 /CUMM (4.8-10.8)
[2017-10-28 08:00] VITALS: BP 98/64
--- NOTE | 2017-10-28 08:46 | PN- Resident CRCU ---
Subjective HPI/CRCU Issues: #1 septic shock, #2 anemia of chronic disease #3 multiple myeloma on chemotherapy #4 end-stage renal disease on peritoneal dialysis #5 back pain #6 thrombocytopenia #7 paroxysmal atrial fibrillation 24 Hour Events: Patient was seen and examined this morning. He is very alert awake and oriented. He continues to report neck pain 5 out of 10, low back pain. He was off from vasopressors, Levophed Blood pressure stable at 90/50 Patient denies any fever, headache, confusion, nausea, vomiting. Reports neck pain which is chronic. Vitals afebrile, heart rate 70-80 respiratory rate 16, blood pressure 90/60, saturating at 96 on 2 L Right IJ removed- 10/27/2017 No signs of infection at the site of central line placement Labs this morning WBC 5.7, hemoglobin 7.6 and platelets 85 Vanco trough 16.7 Peritoneal fluid cell count WBC 272 BUN 74 and creatinine 9.8. Objective Vital Signs & I&O Last 8 Hrs of Vitals and I&O: Vital Signs Date Time Temp Pulse Resp B/P B/P Pulse O2 O2 Flow FiO2 Mean Ox Delivery Rate 10/28 0400 96 Nasal 2.0L Cannula 10/28 0000 96 Nasal 2.0L Cannula 10/28 0000 97.6 73 16 84/60 96 Nasal 2.0L Cannula 10/27 2200 97 Nasal 2.0L Cannula 10/27 1600 98 Nasal 2.0L Cannula 10/27 1600 98.0 76 16 88/60 98 Nasal 2.0L Cannula 10/27 1200 98 Nasal 2.0L Cannula Intake & Output 10/28 1600 10/28 0800 10/28 0000 Intake Total 0 220 Output Total -400 -275 Balance 400 495 Intake, IV 20 Intake, Oral 0 200 Number 0 0 Bowel Movements Output, -400 -275 Dialysate Output, Urine 0 Patient 77.734 kg Weight Weight Bed scale Measurement Method Exam General Appearance: well developed/nourished Other Physical Findings: General Exam: AAOx3, No acute distress, Skin: No rashes, no breakdown;HEENT: PERRLA, EOMI;Neck: Supple, pain upon moving the neck, no neck stiffness, No JVD, central line in place, no erythema or bleeding; No cervical lymphadenopathy;CVS: Reg Rate, Normal S1,S2, 2/6 systolic murmur;Resp: Normal air entry, no ronchi/ rales;Abdomen: Soft, No tenderness, Normal Bowel Sounds;Neuro: Normal Speech, Strength 5/5 b/l x 4 extremities, Sensation intact, CN III-XII NL, Reflexes 2+; Extremities: No cyanosis, no pedal edema Current Medications: Current Medications Sig/Christie Start time Last Medication Dose Route Stop Time Status Admin Acyclovir 200 MG DAILY 10/26 1000 AC 10/27 PO 1039 Ceftriaxone Sodium 2,000 MG 2100 10/27 2100 AC 10/27 IV 2108 Heparin Sodium 2,000 UNIT PER PROTOCL PRN 10/27 1015 AC 10/28 (Porcine) IP 0601 Heparin Sodium 5,000 UNIT Q8 10/26 2200 DC 10/27 (Porcine) SC 1429 Hydrocortisone 50 MG Q8 10/28 1400 UNVr Sodium Succinate IV Hydrocortisone 100 MG Q8 10/26 1724 DC 10/28 Sodium Succinate IV 0548 Lubiprostone 24 MCG BID 10/25 2200 AC 10/27 PO 2108 Magnesium Oxide 400 MG DAILY 10/25 1611 AC 10/28 PO 0915 Midodrine 5 MG 0800,1200,1600 10/27 1200 AC 10/28 PO 0915 Multivitamins 1 TAB DAILY 10/26 1000 AC 10/27 PO 1039 Norepinephrine 4 MG Q24H 10/26 2230 DC 10/27 Sodium Chloride 250 ML IV 0614 Oxycodone HCl 10 MG Q4-6 PRN PRN 10/27 2045 AC PO Oxycodone HCl 20 MG 0900,2100 10/26 0900 AC 10/28 PO 0914 Oxycodone HCl 10 MG Q4-6 PRN PRN 10/25 2315 DC 10/27 PO 1816 Polyethylene Glycol 17 GM DAILY 10/27 1645 AC 10/28 PO 0916 Prochlorperazine 10 MG Q6 PRN 10/25 1615 AC PO Senna/Docusate Sodium 1 TAB BID PRN 10/27 1645 AC 10/27 PO 1808 Sevelamer Carbonate 3,200 MG WM 10/25 1700 AC 10/28 PO 0844 Sevelamer Carbonate 1,600 MG TID PRN 10/25 1615 AC PO Sodium Chloride 500 ML BOLUS ONE 10/27 1100 DC 10/27 IV 10/27 1159 1140 Sodium Chloride 1,000 ML Q10H 10/27 0315 DC 10/27 IV 10/27 2314 1430 Vancomycin HCl 1,000 MG ONCE ONE 10/28 1200 UNir Dextrose/Water 250 ML IV 10/28 1259 Vancomycin HCl 1,000 MG ONCE ONE 10/27 1045 DC 10/27 Dextrose/Water 250 ML IV 10/27 1144 1200 Impression/Plan Impression/Problem List Impression: Mr Grant is a 66-year-old gentleman with history of multiple myeloma ( cyclophosphamide, bortezomib, dexamethasone + E Po-last chemo 10/18/2017), previously on hemodialysis, end-stage renal disease and currently on peritoneal dialysis came to the hospital with a chief concern of confusion, hypotension. He was initially admitted to telemetry floor and transferred to ICU for hypotension requiring central line and vasopressors. At the time of admission, vitals- temperature 99.7, pulse rate 78, respirations 16, blood pressure 64-34 improved to 90/84, 92% on room air--> 96% on 2 L nasal cannula. Pertinent lab findings since the time of admission: WBC 8.6 (10/25)-->7.8 (10/27) Hemoglobin 7.3(10/25)-->6.4-->7.8(10/27)-received 2 units of PRBCs Platelet count 142(10/25)-->121-->103(10/27) BUN 66-->62 Serum creatinine 12.2-->11.1 Troponin 0.98, peaked at 1.77 Calcium level-within normal limits AST 19, ALT 24, alkaline phosphatase 58, albumin 3.2, INR 1.57 UA was not done Random vancomycin 8.4 (11/13) Blood cultures revealed gram-positive cocci in pairs and chains in 2 out of 2 bottles drawn on 10/26/2017. Peritoneal fluid cultures pending Peritoneal dialysis cell count: WBC 86 with 45% PMNs (10/25) WBC 678 with 88% PMNs (10/26) WBC 1528 with 93% PMNs (10/27) WBC 272 with 10% PMNs 10/28 Chest x-ray 10/25-revealed hazy opacities in the right upper lung and left base given low lung volumes and distribution are favored to represent atelectasis. Echocardiogram oh 10/25- Normal global left ventricular size, wall thickness, systolic function with no obvious regional wall motion abnormalities. Normal left ventricular ejection fraction estimated at 65-70%.Right ventricular systolic pressure estimated to be elevated at 38 mHg.Hyperdynamic left ventricular systolic function. Normal Right ventricular systolic function. Head CT 10/25-Normal CT scan of the head. No evidence acute territorial infarct or hemorrhage. Chest CT without contrast 10/27- 1. Multi sublobar areas of consolidation consistent with pneumonia and/or atelectasis. These are in a similar distribution to that seen in 2017 but are worse. 2. New area of groundglass opacity apex right upper lobe.3. Trace bilateral pleural effusions. 4. Severe osteoporosis with numerous vertebral compression fractures. Etiology of this hypotensive episode, but resulted in altered mental status was most likely due to an infection leading to septic shock. The source of infection was unclear at the time of admission, with meningitis, lung, peritoneal fluid seemed the putative sources. Microbiology revealed growth of gram-positive cocci in pairs and chains, which could be pneumococcus making meningitis and pneumonia likely. Other source of infection could be peritonitis secondary to peritoneal dialysis, but pneumococcus seems unlikely, but possible. He has been treated with ceftriaxone, and vancomycin as needed as per Vanco levels given peritoneal dialysis, would cover for strep pneumo (Even resistant species). In regards to his hypotension, which seems to be his baseline, would need volume resuscitation and consider midodrine to increase cardiac output, that said he already has hyperdynamic circulation. In regards to elevated troponin, would likely attribute it to type II TX. If the peritoneal fluid cultures are positive for any other organism, other than gram-positive cocci would defer the decision to add another antibiotic. For now considering sepsis and septic shock, intravenous antibiotics are preferred or intraperitoneal antibiotics. Problem list: #1 septic shock - on antibiotics. off from pressors #2 anemia of chronic disease #3 multiple myeloma on chemotherapy #4 end-stage renal disease on peritoneal dialysis #5 back pain on pain meds #6 thrombocytopenia #7 paroxysmal atrial fibrillation- eliqus on hold, coreg on hold #8. Type II TX elevated troponin and no EKG changes possibly from demand supply mismatch and hypotension ------ Respiratory * Continue supplemental oxygen, will titrate off as the patient tolerates. * Consolidation in the lung, which is multi lobar could be considered as pneumonia, but persistent changes for the last few years as seen in previous chest CAT scans make this unlikely. Regardless, he is being treated with appropriate antibiotics. Infectious- septic shock sec to possible pneumonia Patient blood cultures are positive for gram-positive cocci in pairs and chains most likely strep pneumonia. CAT scan chest was done which showed Multi sublobar areas of consolidation consistent with pneumonia and/or atelectasis. These are in a similar distribution to that seen in 2017 but are worse. New area of groundglass opacity apex right upper lobe. He denied any fever, WBC count elevation. * Continue ceftriaxone 2 g daily for presumed strep pneumonia, given a possibility of peritonitis also. * Has been given a dose of vancomycin this morning, after checking a random vancomycin level 16 and pending insensitivities * Monitor vitals and white count daily. * Continue acyclovir prophylactic dose. * Hypotension resolved, off from pressors * Continue to monitor peritoneal fluid cell count and cultures * Follow up final blood culture sensitivities * Follow-up peritoneal fluid cultures ------ Circulatory-hypotension * Levophed peripherally as needed, which was titrated off. * Volume resuscitation to be attempted, if needed for low blood pressures. * Continue Midrin 5 mg p.o. 3 times daily * If a central line is required, consider a femoral line. * Monitor ins and outs closely. * Hydrocortisone 100 mg IV 3 times daily was added for low blood pressure given recent use of dexamethasone and acute illness. * Will reduce to 50 mg IV every 8 from 10/30/2017 Hematology-anemia, thrombocytopenia * Hemoglobin 7.6 and hematocrit 22 status post 2 units of blood transfusion * Guaiac stools. * Monitor platelets. * Hold anticoagulation for now. * Patient takes eliqus for history of atrial fibrillation, however eliqus on hold for now for anticipated procedure Metabolic * Peritoneal dialysis as per strap buckler machine recommendations. * creatinine 9.8 * Heparin 2000 units per dialysis bag, as per strap buckler machine. * Monitor for electrolyte shifts. ------ Neurology * Watch for mental status changes. * Continue pain medications oxycodone and OxyContin at home dose. DVT prophylaxis-pharmacological. Restart subcutaneous heparin in the next 24-48 hours. Diet-reg diet Housekeeping ICU : #1 Central [id number] catheter was removed under aseptic conditions 10/27. Tip was visualized, and pressure was applied for approximately 10 minutes. Assertained that there was no external evidence of bleeding after removal. Blood pressure stable. #2 Arterial line-none #3 Toro catheter-none #4 Rectal tube-none #5 NG tube-none #6 IV/peripheral line #7 IV drips- Normal saline #8 Vent settings: none #9 pressors: Levophed was discontinued. Please confirm with government auditor in a.m. regarding restarting eliqus. Problem List: 1. Back pain 2. History of renal failure 3. History of multiple myeloma 4. Hypotension 5. Elevated troponin Pain Ratin Tomorrow's Labs & Rationales: [facility] icu bundle Plan DVT/Prophylaxis: mechanical
--- NOTE | 2017-10-28 09:39 | PN- Infect Dx ---
Subjective Subjective: This patient is a 66-year-old white male with multiple myeloma and end-stage renal disease admitted with a four-day history of neck pain and increasing lethargy confusion and anorexia and decreased oral intake. The patient developed fevers while in the hospital and was found to have a gram-positive cocci in pairs and clusters in his initial blood culture. The patient currently feels well today and denies any fevers or chills. He clearly has a cough but normal mentation. His white blood cell count is normal and cultures are positive from October 26 with gram-positive cocci sensitivity and speciation pending. CT scan demonstrates a multi supple lower area of consolidation consistent with pneumonia which have worsened from 2017. Review of Systems Constitutional: Denies: no symptoms. EENTM: Denies: no symptoms. Cardiovascular: Denies: no symptoms. Respiratory: Reports: cough. Gastrointestinal: Denies: no symptoms. Genitourinary: Denies: no symptoms. Musculoskeletal: Denies: no symptoms. Skin: Denies: no symptoms. Neurological/Psychological: Denies: no symptoms. All Other Systems: Reviewed and Negative Objective Last 24 Hrs of Vital Signs/I&O Vital Signs Date Time Temp Pulse Resp B/P B/P Pulse O2 O2 Flow FiO2 Mean Ox Delivery Rate 10/28 0400 96 Nasal 2.0L Cannula 10/28 0000 96 Nasal 2.0L Cannula 10/28 0000 97.6 73 16 84/60 96 Nasal 2.0L Cannula 10/27 2200 97 Nasal 2.0L Cannula 10/27 1600 98 Nasal 2.0L Cannula 10/27 1600 98.0 76 16 88/60 98 Nasal 2.0L Cannula 10/27 1200 98 Nasal 2.0L Cannula Intake & Output 10/28 1600 10/28 0800 10/28 0000 Intake Total 0 220 Output Total -400 -275 Balance 400 495 Intake, IV 20 Intake, Oral 0 200 Number 0 0 Bowel Movements Output, -400 -275 Dialysate Output, Urine 0 Patient 171 lb Weight Weight Bed scale Measurement Method Physical Exam General Appearance: well developed/nourished, no apparent distress, alert, awake , comfortable Head: atraumatic, normal appearance Ears, Nose, Throat: normal ENT inspection Neck: supple, right bandage in place secondary to IJ temporary Cardiovascular: regular rate/rhythm Respiratory: decreased breath sounds Abdomen: soft, non-tender Neurologic/Psychiatric: awake, alert, oriented x 3 Results Last 24 Hours of Lab Results: Laboratory Tests 10/28 10/28 10/27 0630 0400 1113 Chemistry Sodium (137 - 145 mmol/L) 136 L Potassium (3.5 - 5.1 mmol/L) 3.9 Chloride (98 - 107 mmol/L) 95 L Carbon Dioxide (22 - 30 mmol/L) 27 Anion Gap (5 - 16) 14 BUN (9 - 20 mg/dL) 74 H Creatinine (0.7 - 1.2 mg/dL) 9.8 *H Estimated GFR (>60 ml/min) 5 L Glucose (65 - 99 mg/dL) 125 H Calcium (8.4 - 10.2 mg/dL) 8.1 L Phosphorus (2.5 - 4.5 mg/dL) 7.1 H Magnesium (1.6 - 2.3 mg/dL) 2.0 Total Bilirubin (0.2 - 1.3 mg/dL) 0.5 AST (17 - 59 U/L) 89 H ALT (21 - 72 U/L) 65 Albumin (3.5 - 5.0 g/dL) 2.3 L Hematology CBC w Diff NO MAN DIFF REQ WBC (4.8 - 10.8 /CUMM) 5.7 RBC (4.70 - 6.10 /CUMM) 2.36 L Hgb (14.0 - 18.0 G/DL) 7.6 L Hct (42 - 52 %) 22.7 L MCV (80.0 - 94.0 FL) 96.4 H MCH (27.0 - 31.0 PG) 32.4 H MCHC (33.0 - 37.0 G/DL) 33.6 RDW (11.5 - 14.5 %) 19.0 H Plt Count (130 - 400 /CUMM) 85 L MPV (7.4 - 10.4 FL) 8.2 Gran % (42.2 - 75.2 %) 81.5 H Lymphocytes % (20.5 - 51.1 %) 14.7 L Monocytes % (1.7 - 9.3 %) 3.8 Eosinophils % (0 - 5 %) 0 Basophils % (0.0 - 2.0 %) 0 Absolute Granulocytes (1.4 - 6.5 /CUMM) 4.6 Absolute Lymphocytes (1.2 - 3.4 /CUMM) 0.8 L Absolute Monocytes (0.10 - 0.60 /CUMM) 0.2 Absolute Eosinophils (0.0 - 0.7 /CUMM) 0 Absolute Basophils (0.0 - 0.2 /CUMM) 0 % Normal PMNs (%) 93 Other Body Source Fluid WBC (0 - 5 /CUMM) Pending 1528 H Fld Mesothelial Cells (%) 7 Fld Total RBCs Counted (0 /CUMM) Pending 100 H Toxicology Random Vancomycin (ug/ml) 16.7 Last 24 Hours of [place] Results: Pending Assessment/Plan ID Impression: This patient is a 66-year-old white male with multiple medical problems as noted above. The patient appears to have a strep bacteremia which is likely secondary to a pulmonary source. Patient appears to be improving considerably with decrease in his pressors, normal blood pressure and no fever. His white count is normal. His physical exam does not demonstrate any sequela of emboli. Sensitivity and speciation of the gram-positive cocci is pending. Rec: Re-dose with 1 g of vancomycin Would not check levels since we'll likely discontinue after sensitivities Continue ceftriaxone Follow sensitivity and speciation of gram-positive cocci Call with questions [phone] Suggestion: See impression
--- NOTE | 2017-10-28 10:56 | PN- CRCU ---
Subjective HPI/Critical Care Issues: Doing much better today denies any fever and chills He has a cough which is mild no sputum Continues to have neck pain History of pulmonary catheter which was in his neck has been removed His lethargy and confusion seems to be much better and he seems to be in better spirits today Review of Systems Constitutional: Denies: no symptoms. EENTM: Denies: no symptoms. Cardiovascular: Denies: no symptoms. Respiratory: Reports: cough. Gastrointestinal: Denies: no symptoms. Genitourinary: Denies: no symptoms. Musculoskeletal: Denies: no symptoms. Skin: Denies: no symptoms. Neurological/Psychological: Denies: no symptoms. All Other Systems: Reviewed and Negative Objective Current Medications: Current Medications Sig/Christie Start time Last Medication Dose Route Stop Time Status Admin Acyclovir 200 MG DAILY 10/26 1000 AC 10/27 PO 1039 Ceftriaxone Sodium 2,000 MG 10/27 2100 10/27 IV 2108 Heparin Sodium 2,000 UNIT PER PROTOCL PRN 10/27 1015 10/28 (Porcine) IP 0601 Heparin Sodium 5,000 UNIT Q8 10/26 2200 DC 10/27 (Porcine) SC 1429 Hydrocortisone 100 MG Q8 10/26 1724 AC 10/28 Sodium Succinate IV 0548 Lubiprostone 24 MCG BID 10/25 2200 AC 10/27 PO 2108 Magnesium Oxide 400 MG DAILY 10/25 1611 AC 10/28 PO 0915 Magnesium Sulfate 1 GM Q2H 10/27 0700 DC 10/27 Dextrose/Water 100 ML IV 10/27 1059 1039 Midodrine 5 MG 0800,1200,1600 10/27 1200 AC 10/28 PO 0915 Multivitamins 1 TAB DAILY 10/26 1000 AC 10/27 PO 1039 Norepinephrine 4 MG Q24H 10/26 2230 DC 10/27 Sodium Chloride 250 ML IV 0614 Oxycodone HCl 10 MG Q4-6 PRN PRN 10/27 2045 AC PO Oxycodone HCl 20 MG 0900,2100 10/26 0900 AC 10/28 PO 0914 Oxycodone HCl 10 MG Q4-6 PRN PRN 10/25 2315 DC 10/27 PO 1816 Polyethylene Glycol 17 GM DAILY 10/27 1645 AC 10/28 PO 0916 Prochlorperazine 10 MG Q6 PRN 10/25 1615 AC PO Senna/Docusate Sodium 1 TAB BID PRN 10/27 1645 AC 10/27 PO 1808 Sevelamer Carbonate 3,200 MG WM 10/25 1700 AC 10/28 PO 0844 Sevelamer Carbonate 1,600 MG TID PRN 10/25 1615 AC PO Sodium Chloride 500 ML BOLUS ONE 10/27 1100 DC 10/27 IV 10/27 1159 1140 Sodium Chloride 1,000 ML Q10H 10/27 0315 DC 10/27 IV 10/27 2314 1430 Vancomycin HCl 1,000 MG ONCE ONE 10/27 1045 DC 10/27 Dextrose/Water 250 ML IV 10/27 1144 1200 Vital Signs & I&O Last 24 Hrs of Vitals and I&O: Vital Signs Date Time Temp Pulse Resp B/P B/P Pulse O2 O2 Flow FiO2 Mean Ox Delivery Rate 10/28 0400 96 Nasal 2.0L Cannula 10/28 0000 96 Nasal 2.0L Cannula 10/28 0000 97.6 73 16 84/60 96 Nasal 2.0L Cannula 10/27 2200 97 Nasal 2.0L Cannula 10/27 1600 98 Nasal 2.0L Cannula 10/27 1600 98.0 76 16 88/60 98 Nasal 2.0L Cannula 10/27 1200 98 Nasal 2.0L Cannula Intake & Output 10/28 1600 10/28 0800 10/28 0000 Intake Total 0 220 Output Total -400 -275 Balance 400 495 Intake, IV 20 Intake, Oral 0 200 Number 0 0 Bowel Movements Output, -400 -275 Dialysate Output, Urine 0 Patient 171 lb Weight Weight Bed scale Measurement Method Laboratory Tests 10/28 10/28 10/27 0630 0400 1113 Chemistry Sodium (137 - 145 mmol/L) 136 L Potassium (3.5 - 5.1 mmol/L) 3.9 Chloride (98 - 107 mmol/L) 95 L Carbon Dioxide (22 - 30 mmol/L) 27 Anion Gap (5 - 16) 14 BUN (9 - 20 mg/dL) 74 H Creatinine (0.7 - 1.2 mg/dL) 9.8 *H Estimated GFR (>60 ml/min) 5 L Glucose (65 - 99 mg/dL) 125 H Calcium (8.4 - 10.2 mg/dL) 8.1 L Phosphorus (2.5 - 4.5 mg/dL) 7.1 H Magnesium (1.6 - 2.3 mg/dL) 2.0 Total Bilirubin (0.2 - 1.3 mg/dL) 0.5 AST (17 - 59 U/L) 89 H ALT (21 - 72 U/L) 65 Albumin (3.5 - 5.0 g/dL) 2.3 L Hematology CBC w Diff NO MAN DIFF REQ WBC (4.8 - 10.8 /CUMM) 5.7 RBC (4.70 - 6.10 /CUMM) 2.36 L Hgb (14.0 - 18.0 G/DL) 7.6 L Hct (42 - 52 %) 22.7 L MCV (80.0 - 94.0 FL) 96.4 H MCH (27.0 - 31.0 PG) 32.4 H MCHC (33.0 - 37.0 G/DL) 33.6 RDW (11.5 - 14.5 %) 19.0 H Plt Count (130 - 400 /CUMM) 85 L MPV (7.4 - 10.4 FL) 8.2 Gran % (42.2 - 75.2 %) 81.5 H Lymphocytes % (20.5 - 51.1 %) 14.7 L Monocytes % (1.7 - 9.3 %) 3.8 Eosinophils % (0 - 5 %) 0 Basophils % (0.0 - 2.0 %) 0 Absolute Granulocytes (1.4 - 6.5 /CUMM) 4.6 Absolute Lymphocytes (1.2 - 3.4 /CUMM) 0.8 L Lymphocytes (%) 2 Absolute Monocytes (0.10 - 0.60 /CUMM) 0.2 Absolute Eosinophils (0.0 - 0.7 /CUMM) 0 Absolute Basophils (0.0 - 0.2 /CUMM) 0 % Normal PMNs (%) 10 93 Other Body Source Fluid WBC (0 - 5 /CUMM) 272 H 1528 H Fld Mesothelial Cells (%) 7 Fld Total RBCs Counted (0 /CUMM) 20 H 100 H Toxicology Random Vancomycin (ug/ml) 16.7 04/13 04 0530 0405 Chemistry Sodium (137 - 145 mmol/L) 136 L Potassium (3.5 - 5.1 mmol/L) 4.1 Chloride (98 - 107 mmol/L) 98 Carbon Dioxide (22 - 30 mmol/L) 23 Anion Gap (5 - 16) 15 BUN (9 - 20 mg/dL) 62 H Creatinine (0.7 - 1.2 mg/dL) 11.1 *H Estimated GFR (>60 ml/min) 5 L Glucose (65 - 99 mg/dL) 145 H Calcium (8.4 - 10.2 mg/dL) 8.1 L Phosphorus (2.5 - 4.5 mg/dL) 6.9 H Magnesium (1.6 - 2.3 mg/dL) 1.4 L Total Bilirubin (0.2 - 1.3 mg/dL) 0.9 AST (17 - 59 U/L) 22 ALT (21 - 72 U/L) 29 Albumin (3.5 - 5.0 g/dL) 2.4 L Hematology CBC w Diff MAN DIFF ORDERED WBC (4.8 - 10.8 /CUMM) 6.9 RBC (4.70 - 6.10 /CUMM) 2.40 L Hgb (14.0 - 18.0 G/DL) 7.8 L Hct (42 - 52 %) 23.1 L MCV (80.0 - 94.0 FL) 96.3 H MCH (27.0 - 31.0 PG) 32.3 H MCHC (33.0 - 37.0 G/DL) 33.6 RDW (11.5 - 14.5 %) 19.5 H Plt Count (130 - 400 /CUMM) 103 L MPV (7.4 - 10.4 FL) 8.6 Gran % (42.2 - 75.2 %) 92.5 H Lymphocytes % (20.5 - 51.1 %) 4.8 L Monocytes % (1.7 - 9.3 %) 2.6 Eosinophils % (0 - 5 %) 0 Basophils % (0.0 - 2.0 %) 0.1 Absolute Granulocytes (1.4 - 6.5 /CUMM) 6.4 Segmented Neutrophils (42.2 - 75.2 %) 92 H Band Neutrophils (0.0 - 5.0 %) 2 Absolute Lymphocytes (1.2 - 3.4 /CUMM) 0.3 L Lymphocytes (20.5 - 51.1 %) 2 L Monocytes (1.7 - 9.3 %) 4 Absolute Monocytes (0.10 - 0.60 /CUMM) 0.2 Absolute Eosinophils (0.0 - 0.7 /CUMM) 0 Absolute Basophils (0.0 - 0.2 /CUMM) 0 Platelet Estimate (ADEQUATE) ADEQUATE Polychromasia 1+ Poikilocytosis 1+ Basophilic Stippling SLIGHT Ovalocytes 1+ Other Body Source Fluid WBC Cancelled Fld Total RBCs Counted (%) Cancelled 100 Toxicology Random Vancomycin (ug/ml) 8.4 10/26 10/26 10/26 2214 2043 1800 Chemistry Sodium Cancelled Potassium Cancelled Chloride Cancelled Carbon Dioxide Cancelled Anion Gap Cancelled BUN Cancelled Creatinine Cancelled BUN/Creatinine Ratio Cancelled Lactic Acid (0.7 - 2.1 mmol/L) 1.6 Hematology CBC w Diff NO MAN DIFF REQ Cancelled WBC (4.8 - 10.8 /CUMM) 4.8 Cancelled RBC (4.70 - 6.10 /CUMM) 2.37 L Cancelled Hgb (14.0 - 18.0 G/DL) 7.6 L Cancelled Hct (42 - 52 %) 22.9 L Cancelled MCV (80.0 - 94.0 FL) 96.3 H Cancelled MCH (27.0 - 31.0 PG) 32.1 H Cancelled MCHC (33.0 - 37.0 G/DL) 33.3 Cancelled RDW (11.5 - 14.5 %) 19.2 H Cancelled Plt Count (130 - 400 /CUMM) 95 L Cancelled MPV (7.4 - 10.4 FL) 9.5 Cancelled Gran % (42.2 - 75.2 %) 88.2 H Lymphocytes % (20.5 - 51.1 %) 5.1 L Monocytes % (1.7 - 9.3 %) 6.6 Eosinophils % (0 - 5 %) 0.1 Basophils % (0.0 - 2.0 %) 0 Absolute Granulocytes (1.4 - 6.5 /CUMM) 4.2 Absolute Lymphocytes (1.2 - 3.4 /CUMM) 0.2 L Absolute Monocytes (0.10 - 0.60 /CUMM) 0.3 Absolute Eosinophils (0.0 - 0.7 /CUMM) 0 Absolute Basophils (0.0 - 0.2 /CUMM) 0 04/10/26 1758 1320 1309 1300 1235 Chemistry Lactic Acid (0.7 - 2.1 mmol/L) 1.1 Troponin I Cancelled Coagulation PT (9.4 - 12.5 SEC) 17.2 H INR (0.90 - 1.17) 1.57 H Hematology Lymphocytes (%) 1 % Normal PMNs (%) 88 Other Body Source Fluid WBC (0 - 5 /CUMM) 678 H Fld Mesothelial Cells (%) 11 Fld Total RBCs Counted (0 /CUMM) 250 H Urines Urine Color Cancelled Urine Clarity Cancelled Urine pH Cancelled Ur Specific [place] Cancelled Urine Protein Cancelled Urine Ketones Cancelled Urine Nitrite Cancelled Urine Bilirubin Cancelled Urine Urobilinogen Cancelled Ur Leukocyte Esterase Cancelled Ur Microscopic Cancelled Urine Hemoglobin Cancelled Urine Glucose Cancelled 10/26 10/26 10/26 10/26 1143 1143 1141 1141 Other Body Source Fluid WBC Cancelled Fld Total RBCs Counted Cancelled Fluid Glucose Cancelled Fluid Total Protein Cancelled Fluid LDH Cancelled CSF WBC Cancelled CSF RBC Cancelled CSF Comment Cancelled CSF Glucose Cancelled CSF LDH Cancelled CSF Total Protein Cancelled Microbiology Date/Time Procedure - Status Source Growth 10/28 0630 Body Fluid Culture - CAN BODY FLUID Cancelled: ORDER ENTERY ERROR 10/28 0630 Gram Stain - CAN BODY FLUID Cancelled: ORDER ENTERY ERROR 10/28 0600 Body Fluid Culture - RES BODY FLUID 10/28 0600 Gram Stain - RES BODY FLUID 10/27 1830 Body Fluid Culture - RES BODY FLUID 10/27 1830 Gram Stain - RES BODY FLUID 10/26 1640 Surveillance Culture - COMP UPPER RESP 10/26 1635 Surveillance Culture - COMP GI 10/26 1323 Body Fluid Culture - CAN BODY FLUID Cancelled: ORDERED WRONG 10/26 1323 Gram Stain - CAN BODY FLUID Cancelled: ORDERED WRONG 10/26 1320 Urine Culture - CAN URINE ROUT Cancelled: SPECIMEN NOT RECEIVED IN LABORATORY 10/26 1143 CSF Culture - CAN CENT N S Cancelled: SPECIMEN NOT IN LAB OF 10/26 1143 Gram Stain - CAN CENT N S Cancelled: SPECIMEN NOT IN LAB OF 10/26 1141 Body Fluid Culture - CAN BODY FLUID Cancelled: ORDERED WRONG 10/26 1141 Gram Stain - CAN BODY FLUID Cancelled: ORDERED WRONG 10/26 UNK Body Fluid Culture - RES BODY FLUID 10/26 UNK Gram Stain - RES BODY FLUID 10/26 0030 Blood Culture - RES BLOOD GRAM POSITIVE COCCI 10/26 0030 Blood Culture - RES BLOOD GRAM POSITIVE COCCI 10/25 1305 Body Fluid Culture - CAN BODY FLUID Cancelled: SPECIMEN NOT RECEIVED IN LABORATORY 10/25 1305 Gram Stain - CAN BODY FLUID Cancelled: SPECIMEN NOT RECEIVED IN LABORATORY Impression/Plan Impression/Plan Impression/Plan: General Appearance: well developed/nourished, no apparent distress, alert, awake , comfortable Head: atraumatic, normal appearance Ears, Nose, Throat: normal ENT inspection Neck: supple, right bandage in place secondary to IJ temporary, wound appears clean Cardiovascular: regular rate/rhythm Respiratory: decreased breath sounds Abdomen: soft, non-tender, peritoneal dialysis catheter in place Neurologic/Psychiatric: awake, alert, oriented x 3 CT scan of the chest reviewed Multilobar pneumonia versus atelectasis which are new with groundglass opacities with trace effusion with severe osteoporosis and numerous compression fractures IMPRESSION This is a gentleman with significant multiple myeloma, followed by oncology, Renal failure on peritoneal dialysis, treatment with cybor d and Aranesp, now here with * Sepsis probably due to strep pneumo due to multilobar pneumonia in an immunosuppressed patient * Severe multiple myeloma with recent chemotherapy seems to be relatively stable * Small bilateral effusion not enough to BE tapped * Unlikely this could be bacterial meningitis but cannot be ruled out ID is on board * Severe osteoporosis and myeloma involvement of spine with chronic neck pain * Hypotension from sepsis which seems to have resolved * Paroxysmal atrial fibrillation on low dose eloquis with implantable loop recorder * End-stage renal disease on peritoneal dialysis * Elevated troponin upon admission appears to be to related to type II ischemia RECOMMENDATION * Continue current therapy with high-dose ceftriaxone * Antibiotics otherwise per ID * Patient has been stable no indication for any vasopressors * Ask ID whether he would require lumbar puncture. Less likely would need that and if he does not need that we will restart his Eliquis * Continue. Toenail dialysis per renal * Follow his blood work * If he is hypotensive we'll give him intravenous fluids * Continue Midrin can increase the dose if he is hypotensive * Reduce hydrocortisone to 50 mg every 8 hours after tomorrow * Continue his acyclovir * Aggressive bowel regimen We will follow closely patient continues to be critically ill total time spent 38 minutes
--- NOTE | 2017-10-28 11:32 | PN- Nephrology ---
Assessment/Plan Nephrology Assessment: ESRD. GPC bacteremia with secondary infection of peritoneal fluid. ? pulmonary source. Please check with Micro. They should have the final ID of the organism today (pneumococcus? enterococcus). Continue current PD. Nasir Khalil MD Suggestion: . Subjective Subjective: Pt doing better. Fluid cell count still 200's BP better and pt feels well. Final ID of bacteria still pending. Objective Vital Signs and I&Os M NAD 98/64 97.9 78 Skin neg rash Eyes anceric ENT moist Lungs clear Cor RRR Abd soft Ext neg edema Results Pertinent Lab Results: Laboratory Tests 10/28 10/28 10/27 0630 0400 1113 Chemistry Sodium (137 - 145 mmol/L) 136 L Potassium (3.5 - 5.1 mmol/L) 3.9 Chloride (98 - 107 mmol/L) 95 L Carbon Dioxide (22 - 30 mmol/L) 27 Anion Gap (5 - 16) 14 BUN (9 - 20 mg/dL) 74 H Creatinine (0.7 - 1.2 mg/dL) 9.8 *H Estimated GFR (>60 ml/min) 5 L Glucose (65 - 99 mg/dL) 125 H Calcium (8.4 - 10.2 mg/dL) 8.1 L Phosphorus (2.5 - 4.5 mg/dL) 7.1 H Magnesium (1.6 - 2.3 mg/dL) 2.0 Total Bilirubin (0.2 - 1.3 mg/dL) 0.5 AST (17 - 59 U/L) 89 H ALT (21 - 72 U/L) 65 Albumin (3.5 - 5.0 g/dL) 2.3 L Hematology CBC w Diff NO MAN DIFF REQ WBC (4.8 - 10.8 /CUMM) 5.7 RBC (4.70 - 6.10 /CUMM) 2.36 L Hgb (14.0 - 18.0 G/DL) 7.6 L Hct (42 - 52 %) 22.7 L MCV (80.0 - 94.0 FL) 96.4 H MCH (27.0 - 31.0 PG) 32.4 H MCHC (33.0 - 37.0 G/DL) 33.6 RDW (11.5 - 14.5 %) 19.0 H Plt Count (130 - 400 /CUMM) 85 L MPV (7.4 - 10.4 FL) 8.2 Gran % (42.2 - 75.2 %) 81.5 H Lymphocytes % (20.5 - 51.1 %) 14.7 L Monocytes % (1.7 - 9.3 %) 3.8 Eosinophils % (0 - 5 %) 0 Basophils % (0.0 - 2.0 %) 0 Absolute Granulocytes (1.4 - 6.5 /CUMM) 4.6 Absolute Lymphocytes (1.2 - 3.4 /CUMM) 0.8 L Lymphocytes (%) 2 Absolute Monocytes (0.10 - 0.60 /CUMM) 0.2 Absolute Eosinophils (0.0 - 0.7 /CUMM) 0 Absolute Basophils (0.0 - 0.2 /CUMM) 0 % Normal PMNs (%) 10 93 Other Body Source Fluid WBC (0 - 5 /CUMM) 272 H 1528 H Fld Mesothelial Cells (%) 7 Fld Total RBCs Counted (0 /CUMM) 20 H 100 H Toxicology Random Vancomycin (ug/ml) 16.7 10/27 10/27 0530 0405 Chemistry Sodium (137 - 145 mmol/L) 136 L Potassium (3.5 - 5.1 mmol/L) 4.1 Chloride (98 - 107 mmol/L) 98 Carbon Dioxide (22 - 30 mmol/L) 23 Anion Gap (5 - 16) 15 BUN (9 - 20 mg/dL) 62 H Creatinine (0.7 - 1.2 mg/dL) 11.1 *H Estimated GFR (>60 ml/min) 5 L Glucose (65 - 99 mg/dL) 145 H Calcium (8.4 - 10.2 mg/dL) 8.1 L Phosphorus (2.5 - 4.5 mg/dL) 6.9 H Magnesium (1.6 - 2.3 mg/dL) 1.4 L Total Bilirubin (0.2 - 1.3 mg/dL) 0.9 AST (17 - 59 U/L) 22 ALT (21 - 72 U/L) 29 Albumin (3.5 - 5.0 g/dL) 2.4 L Hematology CBC w Diff MAN DIFF ORDERED WBC (4.8 - 10.8 /CUMM) 6.9 RBC (4.70 - 6.10 /CUMM) 2.40 L Hgb (14.0 - 18.0 G/DL) 7.8 L Hct (42 - 52 %) 23.1 L MCV (80.0 - 94.0 FL) 96.3 H MCH (27.0 - 31.0 PG) 32.3 H MCHC (33.0 - 37.0 G/DL) 33.6 RDW (11.5 - 14.5 %) 19.5 H Plt Count (130 - 400 /CUMM) 103 L MPV (7.4 - 10.4 FL) 8.6 Gran % (42.2 - 75.2 %) 92.5 H Lymphocytes % (20.5 - 51.1 %) 4.8 L Monocytes % (1.7 - 9.3 %) 2.6 Eosinophils % (0 - 5 %) 0 Basophils % (0.0 - 2.0 %) 0.1 Absolute Granulocytes (1.4 - 6.5 /CUMM) 6.4 Segmented Neutrophils (42.2 - 75.2 %) 92 H Band Neutrophils (0.0 - 5.0 %) 2 Absolute Lymphocytes (1.2 - 3.4 /CUMM) 0.3 L Lymphocytes (20.5 - 51.1 %) 2 L Monocytes (1.7 - 9.3 %) 4 Absolute Monocytes (0.10 - 0.60 /CUMM) 0.2 Absolute Eosinophils (0.0 - 0.7 /CUMM) 0 Absolute Basophils (0.0 - 0.2 /CUMM) 0 Platelet Estimate (ADEQUATE) ADEQUATE Polychromasia 1+ Poikilocytosis 1+ Basophilic Stippling SLIGHT Ovalocytes 1+ Other Body Source Fluid WBC Cancelled Fld Total RBCs Counted (%) Cancelled 100 Toxicology Random Vancomycin (ug/ml) 8.4 10/26 10/26 10/26 2214 2043 1800 Chemistry Sodium Cancelled Potassium Cancelled Chloride Cancelled Carbon Dioxide Cancelled Anion Gap Cancelled BUN Cancelled Creatinine Cancelled BUN/Creatinine Ratio Cancelled Lactic Acid (0.7 - 2.1 mmol/L) 1.6 Hematology CBC w Diff NO MAN DIFF REQ Cancelled WBC (4.8 - 10.8 /CUMM) 4.8 Cancelled RBC (4.70 - 6.10 /CUMM) 2.37 L Cancelled Hgb (14.0 - 18.0 G/DL) 7.6 L Cancelled Hct (42 - 52 %) 22.9 L Cancelled MCV (80.0 - 94.0 FL) 96.3 H Cancelled MCH (27.0 - 31.0 PG) 32.1 H Cancelled MCHC (33.0 - 37.0 G/DL) 33.3 Cancelled RDW (11.5 - 14.5 %) 19.2 H Cancelled Plt Count (130 - 400 /CUMM) 95 L Cancelled MPV (7.4 - 10.4 FL) 9.5 Cancelled Gran % (42.2 - 75.2 %) 88.2 H Lymphocytes % (20.5 - 51.1 %) 5.1 L Monocytes % (1.7 - 9.3 %) 6.6 Eosinophils % (0 - 5 %) 0.1 Basophils % (0.0 - 2.0 %) 0 Absolute Granulocytes (1.4 - 6.5 /CUMM) 4.2 Absolute Lymphocytes (1.2 - 3.4 /CUMM) 0.2 L Absolute Monocytes (0.10 - 0.60 /CUMM) 0.3 Absolute Eosinophils (0.0 - 0.7 /CUMM) 0 Absolute Basophils (0.0 - 0.2 /CUMM) 0 10/26 10/26 10/26 10/26 10/26 1758 1320 1309 1300 1235 Chemistry Lactic Acid (0.7 - 2.1 mmol/L) 1.1 Troponin I Cancelled Coagulation PT (9.4 - 12.5 SEC) 17.2 H INR (0.90 - 1.17) 1.57 H Hematology Lymphocytes (%) 1 % Normal PMNs (%) 88 Other Body Source Fluid WBC (0 - 5 /CUMM) 678 H Fld Mesothelial Cells (%) 11 Fld Total RBCs Counted (0 /CUMM) 250 H Urines Urine Color Cancelled Urine Clarity Cancelled Urine pH Cancelled Ur Specific [place] Cancelled Urine Protein Cancelled Urine Ketones Cancelled Urine Nitrite Cancelled Urine Bilirubin Cancelled Urine Urobilinogen Cancelled Ur Leukocyte Esterase Cancelled Ur Microscopic Cancelled Urine Hemoglobin Cancelled Urine Glucose Cancelled 10/26 10/26 10/26 10/26 10/26 1143 1143 1141 1141 0600 Chemistry Troponin I Cancelled Other Body Source Fluid WBC Cancelled Fld Total RBCs Counted Cancelled Fluid Glucose Cancelled Fluid Total Protein Cancelled Fluid LDH Cancelled CSF WBC Cancelled CSF RBC Cancelled CSF Comment Cancelled CSF Glucose Cancelled CSF LDH Cancelled CSF Total Protein Cancelled 10/26 10/26 0600 0000 Chemistry Sodium (137 - 145 mmol/L) 137 Potassium (3.5 - 5.1 mmol/L) 3.8 Chloride (98 - 107 mmol/L) 97 L Carbon Dioxide (22 - 30 mmol/L) 23 Anion Gap (5 - 16) 18 H BUN (9 - 20 mg/dL) 64 H Creatinine (0.7 - 1.2 mg/dL) 11.9 *H Estimated GFR (>60 ml/min) 4 L BUN/Creatinine Ratio (7 - 25 %) 5.4 L Calcium (8.4 - 10.2 mg/dL) 8.3 L Phosphorus (2.5 - 4.5 mg/dL) 7.2 H Magnesium (1.6 - 2.3 mg/dL) 1.3 L Troponin I (<0.11 ng/ml) 1.77 *H Cortisol AM Sample (4.46 - 22.7 ug/dL) 31.8 H Hematology CBC w Diff NO MAN DIFF REQ WBC (4.8 - 10.8 /CUMM) 5.4 RBC (4.70 - 6.10 /CUMM) 2.00 L Hgb (14.0 - 18.0 G/DL) 6.5 *L Hct (42 - 52 %) 19.6 *L MCV (80.0 - 94.0 FL) 98.1 H MCH (27.0 - 31.0 PG) 32.3 H MCHC (33.0 - 37.0 G/DL) 32.9 L RDW (11.5 - 14.5 %) 18.6 H Plt Count (130 - 400 /CUMM) 103 L MPV (7.4 - 10.4 FL) 8.5 Gran % (42.2 - 75.2 %) 89.1 H Lymphocytes % (20.5 - 51.1 %) 4.7 L Monocytes % (1.7 - 9.3 %) 6.1 Eosinophils % (0 - 5 %) 0 Basophils % (0.0 - 2.0 %) 0.1 Absolute Granulocytes (1.4 - 6.5 /CUMM) 4.8 Absolute Lymphocytes (1.2 - 3.4 /CUMM) 0.3 L Lymphocytes (%) 18 Absolute Monocytes (0.10 - 0.60 /CUMM) 0.3 Absolute Eosinophils (0.0 - 0.7 /CUMM) 0 Absolute Basophils (0.0 - 0.2 /CUMM) 0 % Normal PMNs (%) 45 Misc Hematology Test (%) Other Body Source Fluid WBC (0 - 5 /CUMM) 86 H Fld Total RBCs Counted (0 /CUMM) 24 H 10/25 10/25 2248 1620 Chemistry Lactic Acid (0.7 - 2.1 mmol/L) 1.3 Troponin I (<0.11 ng/ml) 1.28 *H 1.23 *H Hematology CBC w Diff NO MAN DIFF REQ WBC (4.8 - 10.8 /CUMM) 5.9 RBC (4.70 - 6.10 /CUMM) 1.93 L Hgb (14.0 - 18.0 G/DL) 6.4 *L Hct (42 - 52 %) 19.2 *L MCV (80.0 - 94.0 FL) 99.6 H MCH (27.0 - 31.0 PG) 33.2 H MCHC (33.0 - 37.0 G/DL) 33.3 RDW (11.5 - 14.5 %) 17.9 H Plt Count (130 - 400 /CUMM) 121 L MPV (7.4 - 10.4 FL) 8.4 Gran % (42.2 - 75.2 %) 92.3 H Lymphocytes % (20.5 - 51.1 %) 3.4 L Monocytes % (1.7 - 9.3 %) 4.3 Eosinophils % (0 - 5 %) 0 Basophils % (0.0 - 2.0 %) 0 Absolute Granulocytes (1.4 - 6.5 /CUMM) 5.4 Absolute Lymphocytes (1.2 - 3.4 /CUMM) 0.2 L Absolute Monocytes (0.10 - 0.60 /CUMM) 0.3 Absolute Eosinophils (0.0 - 0.7 /CUMM) 0 Absolute Basophils (0.0 - 0.2 /CUMM) 0
[2017-10-28 16:00] VITALS: BP 98/64
--- NOTE | 2017-10-28 19:36 | PN- Cardiology ---
Subjective Subjective: No complaints, but does admit to continued neck discomfort. Off pressors. Sinus rhythm on monitor. Objective Vital Signs and I&Os Vital Signs Date Time Temp Pulse Resp B/P B/P Pulse O2 O2 Flow FiO2 Mean Ox Delivery Rate 10/28 1600 96 Nasal 2.0L Cannula 10/28 1600 97.8 78 18 98/64 93 Nasal 2.0L Cannula 10/28 1200 98 Nasal 2.0L Cannula 10/28 0800 Nasal 2.0L Cannula 10/28 0800 97.9 78 18 98/64 93 Nasal 2.0L Cannula 10/28 0400 96 Nasal 2.0L Cannula 10/28 0000 96 Nasal 2.0L Cannula 10/28 0000 97.6 73 16 84/60 96 Nasal 2.0L Cannula 10/27 2200 97 Nasal 2.0L Cannula Intake & Output 10/28 1600 10/28 0800 10/28 0000 10/27 1600 10/27 0800 10/27 0000 Intake Total 1050 0 220 1746 1022 1944.4 Output Total -400 -400 -275 0950 470 8588 Balance 1450 400 495 646 422 544.4 Intake, Blood 350 Product Intake, IV 411 92 9019 1022 1594.4 Intake, Oral 800 0 200 500 Number 1 0 0 Bowel Movements Output, -400 -400 -275 2255 956 9915 Dialysate Output, Urine 0 Patient 173 lb 171 lb 174 lb Weight Weight Bed scale Bed scale Measurement Method Physical Exam: Well-developed, well-nourished middle-aged male in no acute distress. Vital signs: See above. Neck: No JVD, no bruits. Lungs: Clear to auscultation. Heart: S1, S2 with no murmur, gallop, or rub. Abdomen: Soft, nontender, positive bowel sounds. Extremities: No edema. Current Medications: Current Medications Sig/Christie Start time Last Medication Dose Route Stop Time Status Admin Acyclovir 200 MG DAILY 10/26 1000 AC 10/28 PO 1201 Ceftriaxone Sodium 2,000 MG 2100 10/27 2100 AC 10/27 IV 2108 Heparin Sodium 2,000 UNIT PER PROTOCL PRN 10/27 1015 AC 10/28 (Porcine) IP 1137 Hydrocortisone 50 MG Q8 10/28 1400 DC Sodium Succinate IV Hydrocortisone 100 MG Q8 10/28 1400 AC 10/28 Sodium Succinate IV 1415 Hydrocortisone 100 MG Q8 10/26 1724 DC 10/28 Sodium Succinate IV 0548 Lubiprostone 24 MCG BID 10/25 2200 AC 10/28 PO 1202 Magnesium Oxide 400 MG DAILY 10/25 1611 AC 10/28 PO 0915 Midodrine 5 MG 0800,1200,1600 10/27 1200 AC 10/28 PO 1800 Multivitamins 1 TAB DAILY 10/26 1000 AC 10/28 PO 1202 Norepinephrine 4 MG Q24H 10/26 2230 NC 10/27 Sodium Chloride 250 ML IV 0614 Oxycodone HCl 10 MG Q4-6 PRN PRN 10/27 2045 AC PO Oxycodone HCl 20 MG 0900,2100 10/26 0900 AC 10/28 PO 0914 Oxycodone HCl 10 MG Q4-6 PRN PRN 10/25 2315 DC 10/27 PO 1816 Polyethylene Glycol 17 GM DAILY 10/27 1645 AC 10/28 PO 0916 Prochlorperazine 10 MG Q6 PRN 10/25 1615 AC PO Senna/Docusate Sodium 1 TAB BID PRN 10/27 1645 10/28 PO 1202 Sevelamer Carbonate 3,200 MG WM 10/25 1700 AC 10/28 PO 1925 Sevelamer Carbonate 1,600 MG TID PRN 10/25 1615 AC PO Sodium Chloride 1,000 ML Q10H 10/27 0315 DC 10/27 IV 10/27 2314 1430 Vancomycin HCl 1,000 MG ONCE ONE 10/28 1200 DC 10/28 Dextrose/Water 250 ML IV 10/28 1259 1200 Results Last 48 Hrs of Labs/Mics: Laboratory Tests 10/28/17 0630: Lymphocytes 2, % Normal PMNs 10, Fluid WBC 272 H, Fld Mesothelial Cells , Fld Total RBCs Counted 20 H 10/28/17 0400: Anion Gap 14, Estimated GFR 5 L, Glucose 125 H, Calcium 8.1 L, Phosphorus 7.1 H, Magnesium 2.0, Total Bilirubin 0.5, AST 89 H, ALT 65, Albumin 2.3 L, CBC w Diff NO MAN DIFF REQ, RBC 2.36 L, MCV 96.4 H, MCH 32.4 H, MCHC 33.6, RDW 19.0 H, MPV 8.2, Gran % 81.5 H, Lymphocytes % 14.7 L, Monocytes % 3.8, Eosinophils % 0, Basophils % 0, Absolute Granulocytes 4.6, Absolute Lymphocytes 0.8 L, Absolute Monocytes 0.2, Absolute Eosinophils 0, Absolute Basophils 0, Random Vancomycin 16.7 10/27/17 1113: % Normal PMNs 93, Fluid WBC 1528 H, Fld Mesothelial Cells 7, Fld Total RBCs Counted 100 H 10/27/17 0530: Fluid WBC Cancelled, Fld Total RBCs Counted Cancelled 10/27/17 0405: Anion Gap 15, Estimated GFR 5 L, Glucose 145 H, Calcium 8.1 L, Phosphorus 6.9 H, Magnesium 1.4 L, Total Bilirubin 0.9, AST 22, ALT 29, Albumin 2.4 L, CBC w Diff MAN DIFF ORDERED, RBC 2.40 L, MCV 96.3 H, MCH 32.3 H, MCHC 33.6, RDW 19.5 H, MPV 8.6, Gran % 92.5 H, Lymphocytes % 4.8 L, Monocytes % 2.6, Eosinophils % 0, Basophils % 0.1, Absolute Granulocytes 6.4, Segmented Neutrophils 92 H, Band Neutrophils 2, Absolute Lymphocytes 0.3 L, Lymphocytes 2 L, Monocytes 4, Absolute Monocytes 0.2, Absolute Eosinophils 0, Absolute Basophils 0, Platelet Estimate ADEQUATE, Polychromasia 1+, Poikilocytosis 1+, Basophilic Stippling SLIGHT, Ovalocytes 1+, Fld Total RBCs Counted 100, Random Vancomycin 8.4 10/26/17 2214: CBC w Diff NO MAN DIFF REQ, RBC 2.37 L, MCV 96.3 H, MCH 32.1 H, MCHC 33.3, RDW 19.2 H, MPV 9.5, Gran % 88.2 H, Lymphocytes % 5.1 L, Monocytes % 6.6, Eosinophils % 0.1, Basophils % 0, Absolute Granulocytes 4.2, Absolute Lymphocytes 0.2 L, Absolute Monocytes 0.3, Absolute Eosinophils 0, Absolute Basophils 0 10/26/172042: Lactic Acid 1.6 Assessment/Plan Assessment/Plan Middle-aged male with multiple myeloma, followed by oncology, ESRD on peritoneal dialysis who presented with sepsis secondary to Streptococcus pneumoniae in this immunocompromised individual who appears much improved today and is in sinus rhythm Recommendations: * Hold off on full anticoagulation until decision made whether or not lumbar tap necessary as per infectious diseases. * Repeat troponin as last level was still elevating. * DVT prophylaxis per Continue telemetry? Not applicable (In ICU.)
[2017-10-29] VITALS: BP 100/60
[2017-10-29 04:54] LABS: ABSOLUTE BASOPHIL COUNT 0 /CUMM (0.0-0.2); ABSOLUTE EOSINOPHIL COUNT 0 /CUMM (0.0-0.7); ABSOLUTE GRANULOCYTE CT 6.7 /CUMM (1.4-6.5); ABSOLUTE LYMPH COUNT 0.7 /CUMM (1.2-3.4); ABSOLUTE MONOCYTE COUNT 0.3 /CUMM (0.10-0.60); BASOPHIL % 0 % (0.0-2.0); EOSINOPHIL % 0 % (0-5); GRANULOCYTE % 86.6 % (42.2-75.2); HEMATOCRIT 24.4 % (42-52); MEAN CORPUSCULAR HGB 31.4 PG (27.0-31.0); MEAN CORPUSCULAR HGB CONC 32.4 G/DL (33.0-37.0); MEAN CORPUSCULAR VOLUME 96.9 FL (80.0-94.0); PLATELET COUNT 88 /CUMM (130-400); RBC DISTRIBUTION WIDTH 19.3 % (11.5-14.5); RED BLOOD CELL CT 2.52 /CUMM (4.70-6.10); WHITE BLOOD CELL COUNT 7.8 /CUMM (4.8-10.8)
[2017-10-29 08:00] VITALS: BP 90/58
--- NOTE | 2017-10-29 09:25 | PN- CRCU ---
Subjective HPI/Critical Care Issues: HPI/CRCU Issues: #1 septic shock, #2 anemia of chronic disease #3 multiple myeloma on chemotherapy #4 end-stage renal disease on peritoneal dialysis #5 back pain #6 thrombocytopenia #7 paroxysmal atrial fibrillation 24 Hour Events: Patient was seen and examined this morning. He is very alert awake and oriented. He was complaining of pain 8 out of 10 and was complaining that he cannot move from bed to chair because of severe pain and weakness. He denied headache, chest pain, palpitations, dizziness, nausea vomiting or any urinary complaints. Vitals afebrile, heart rate 70-80 respiratory rate 16, blood pressure 88/58, saturating at 96 on 2 L Right IJ removed- 10/27/2017 No signs of infection at the site of central line placement Labs this morning WBC count 7.8, hemoglobin 7.9, hematocrit 24.4, platelet count 88 potassium 3.9, BUN 79, creatinine 0.8. Objective Current Medications: Current Medications Sig/Christie Start time Last Medication Dose Route Stop Time Status Admin Acyclovir 200 MG DAILY 10/26 1000 AC 10/29 PO 0837 Apixaban 2.5 MG BID 10/29 1158 UNVr PO Ceftriaxone Sodium 2,000 MG 10/27 2100 AC 10/28 IV 2142 Heparin Sodium 5,000 UNIT .STK-MED ONE 10/28 2341 DC (Porcine) IV 10/28 2342 Heparin Sodium 5,000 UNIT .STK-MED ONE 10/28 1747 DC (Porcine) IV 10/28 1748 Heparin Sodium 2,000 UNIT PER PROTOCL PRN 10/27 1015 AC 10/29 (Porcine) IP 0555 Hydrocortisone 100 MG Q8 10/28 1400 AC 10/29 Sodium Succinate IV 0555 Lubiprostone 24 MCG BID 10/25 2200 AC 10/29 PO 0838 Magnesium Oxide 400 MG DAILY 10/25 1611 AC 10/29 PO 0838 Midodrine 5 MG Q8 10/29 0600 AC 10/29 PO 0540 Midodrine 5 MG 0800,1200,1600 10/27 1200 DC 10/28 PO 1800 Multivitamins 1 TAB DAILY 10/26 1000 AC 10/29 PO 0838 Oxycodone HCl 10 MG Q4-6 PRN PRN 10/27 2045 AC PO Oxycodone HCl 20 MG 0900,2100 10/26 0900 AC 10/29 PO 0827 Polyethylene Glycol 17 GM DAILY 10/27 1645 AC 10/29 PO 0836 Prochlorperazine 10 MG Q6 PRN 10/25 1615 AC PO Senna/Docusate Sodium 1 TAB BID PRN 10/27 1645 AC 10/28 PO 1202 Sevelamer Carbonate 3,200 MG WM 10/25 1700 AC 10/29 PO 0827 Sevelamer Carbonate 1,600 MG TID PRN 10/25 1615 AC PO Vancomycin HCl 1,000 MG ONCE ONE 10/28 1200 DC 10/28 Dextrose/Water 250 ML IV 10/28 1259 1200 Vital Signs & I&O Last 24 Hrs of Vitals and I&O: Vital Signs Date Time Temp Pulse Resp B/P B/P Pulse O2 O2 Flow FiO2 Mean Ox Delivery Rate 10/29 08 95 Nasal 2.0L Cannula 10/29 0800 97.9 78 20 90/58 95 Nasal 2.0L Cannula 10/29 0400 93 Nasal 2.0L Cannula 10/29 0000 96 Nasal 2.0L Cannula 10/29 0000 97.9 78 16 100/60 96 Nasal 2.0L Cannula 10/28 2000 92 Nasal 2.0L Cannula 10/28 1600 96 Nasal 2.0L Cannula 10/28 1600 97.8 78 18 98/64 93 Nasal 2.0L Cannula Intake & Output 10/29 1600 10/29 0800 10/29 0000 Intake Total 60 613.6 Output Total -250 200 Balance 310 413.6 Intake, IV 613.6 Intake, Oral 60 Number 0 1 Bowel Movements Output, -250 200 Dialysate Patient 178 lb Weight Weight Bed scale Measurement Method Exam General Appearance: no apparent distress, alert, awake Respiratory: chest non-tender, no respiratory distress Cardiovascular: irregularly irregular Abdomen: soft, non-tender Back: vertebral tenderness Extremities: normal inspection Results Last 24 Hrs of Lab Results: Laboratory Tests 10/29/17 0640: Lymphocytes 8, % Normal PMNs 16, Fluid WBC 81 H, Fld Mesothelial Cells , Fld Total RBCs Counted 26 H 10/29/17 0435: Anion Gap 14, Estimated GFR 5 L, Glucose 137 H, Calcium 7.9 L, Phosphorus 6.5 H, Magnesium 2.1, Total Bilirubin 0.4, AST 21, ALT 44, Albumin 2.2 L, CBC w Diff NO MAN DIFF REQ, RBC 2.52 L, MCV 96.9 H, MCH 31.4 H, MCHC 32.4 L, RDW 19.3 H, MPV 8.0, Gran % 86.6 H, Lymphocytes % 9.4 L, Monocytes % 4.0, Eosinophils % 0, Basophils % 0, Absolute Granulocytes 6.7 H, Absolute Lymphocytes 0.7 L, Absolute Monocytes 0.3, Absolute Eosinophils 0, Absolute Basophils 0 10/28/174: Troponin I 0.38 *H Impression/Plan Impression/Plan Impression/Plan: Mr Grant is a 66-year-old gentleman with history of multiple myeloma ( cyclophosphamide, bortezomib, dexamethasone + E Po-last chemo 10/18/2017), previously on hemodialysis, end-stage renal disease and currently on peritoneal dialysis came to the hospital with a chief concern of confusion, hypotension. He was initially admitted to telemetry floor and transferred to ICU for hypotension requiring central line and vasopressors. Etiology of this hypotensive episode, but resulted in altered mental status was most likely due to an infection leading to septic shock. The source of infection was unclear at the time of admission, with meningitis, lung, peritoneal fluid seemed the putative sources. Microbiology revealed growth of gram-positive cocci in pairs and chains, which could be pneumococcus making meningitis and pneumonia likely. Other source of infection could be peritonitis secondary to peritoneal dialysis, but pneumococcus seems unlikely, but possible. He has been treated with ceftriaxone, and vancomycin as needed as per Vanco levels given peritoneal dialysis, would cover for strep pneumo (Even resistant species). In regards to his hypotension, which seems to be his baseline, would need volume resuscitation and consider midodrine to increase cardiac output, that said he already has hyperdynamic circulation. In regards to elevated troponin, would likely attribute it to type II NV. If the peritoneal fluid cultures are positive for any other organism, other than gram-positive cocci would defer the decision to add another antibiotic. For now considering sepsis and septic shock, intravenous antibiotics are preferred or intraperitoneal antibiotics. Problem list: #1 septic shock - on antibiotics. off from pressors #2 anemia of chronic disease #3 multiple myeloma on chemotherapy #4 end-stage renal disease on peritoneal dialysis #5 back pain on pain meds #6 thrombocytopenia #7 paroxysmal atrial fibrillation- eliqus on hold, coreg on hold #8. Type II NV elevated troponin and no EKG changes possibly from demand supply mismatch and hypotension ------ Respiratory * Continue supplemental oxygen, will titrate off as the patient tolerates. * Consolidation in the lung, which is multi lobar could be considered as pneumonia, but persistent changes for the last few years as seen in previous chest CAT scans make this unlikely. Regardless, he is being treated with appropriate antibiotics. Infectious- septic shock sec to possible pneumonia Patient blood cultures are positive for gram-positive cocci in pairs and chains most likely strep pneumonia. CAT scan chest was done which showed Multi sublobar areas of consolidation consistent with pneumonia and/or atelectasis. These are in a similar distribution to that seen in 2017 but are worse. New area of groundglass opacity apex right upper lobe. He denied any fever, WBC count elevation. * Continue ceftriaxone 2 g daily and we will discontinue vancomycin * Monitor vitals and white count daily. * Continue acyclovir prophylactic dose. * Hypotension resolved, off from pressors her baseline blood pressure is in 80s systolic * Continue to monitor peritoneal fluid cell count and cultures * His blood cultures grew strep pneumo sensitive to penicillin. * Follow-up peritoneal fluid cultures --- Circulatory-hypotension * Levophed peripherally as needed, which was titrated off. * Volume resuscitation to be attempted, if needed for low blood pressures. * Continue Midorin 5 mg p.o. 3 times daily * If a central line is required, consider a femoral line. * Monitor ins and outs closely. * Currently he is on hydrocortisone 100 mg every 8 hours and we will reduce to 50 mg every 8 hours from tomorrow Hematology-anemia, thrombocytopenia * Hemoglobin 7.9 and hematocrit 24.4 status post 2 units of blood transfusion * Guaiac stools. * Monitor platelets. * As patient does not need lumbar puncture so we will resume his anticoagulation with Eliquis 12.5 mg twice a day Metabolic * Peritoneal dialysis as per spice mixer recommendations. * creatinine 9.8 * Heparin 2000 units per dialysis bag, as per spice mixer. * Monitor for electrolyte shifts. ------ Neurology * Watch for mental status changes. * Continue pain medications oxycodone and OxyContin at home dose. DVT prophylaxis-pharmacological. Diet-reg diet Housekeeping ICU : #1 Central [id number] catheter was removed under aseptic conditions 10/27. Tip was visualized, and pressure was applied for approximately 10 minutes. Assertained that there was no external evidence of bleeding after removal. Blood pressure stable. #2 Arterial line-none #3 Toro catheter-none #4 Rectal tube-none #5 NG tube-none #6 IV/peripheral line #7 IV drips- Normal saline #8 Vent settings: none #9 pressors: Levophed was discontinued.
--- NOTE | 2017-10-29 10:43 | PN- Infect Dx ---
Subjective Subjective: This patient is a 66-year-old white male with multiple myeloma and end-stage renal disease admitted with a four-day history of neck pain and increasing lethargy confusion and anorexia and decreased oral intake. The patient developed fevers while in the hospital and was found to have a strep pneumo in his blood cultures. The patient is improving, currently feels well today and denies any fevers or chills. Continues with normal mentation. His white blood cell count is normal and cultures are positive from October 26 with a senstive Strep penumo on CTX . CT scan demonstrates a multi supple lower area of consolidation consistent with pneumonia which have worsened from 2017. Review of Systems Constitutional: Reports: no symptoms. EENTM: Reports: no symptoms. Cardiovascular: Reports: no symptoms. Respiratory: Reports: cough. Gastrointestinal: Reports: no symptoms. Genitourinary: Reports: no symptoms. Musculoskeletal: Reports: no symptoms. Skin: Reports: no symptoms. Neurological/Psychological: Reports: no symptoms. Objective Last 24 Hrs of Vital Signs/I&O Vital Signs Date Time Temp Pulse Resp B/P B/P Pulse O2 O2 Flow FiO2 Mean Ox Delivery Rate 10/29 0800 95 Nasal 2.0L Cannula 10/29 0800 97.9 78 20 90/58 95 Nasal 2.0L Cannula 10/29 0400 93 Nasal 2.0L Cannula 10/29 0000 96 Nasal 2.0L Cannula 10/29 0000 97.9 78 16 100/60 96 Nasal 2.0L Cannula 10/28 2000 92 Nasal 2.0L Cannula 10/28 1600 96 Nasal 2.0L Cannula 10/28 1600 97.8 78 18 98/64 93 Nasal 2.0L Cannula 10/28 1200 98 Nasal 2.0L Cannula Intake & Output 10/29 1600 10/29 0800 10/29 0000 Intake Total 60 613.6 Output Total -250 200 Balance 310 413.6 Intake, IV 613.6 Intake, Oral 60 Number 0 1 Bowel Movements Output, -250 200 Dialysate Patient 178 lb Weight Weight Bed scale Measurement Method Physical Exam General Appearance: well developed/nourished, no apparent distress, alert, awake Head: atraumatic, normal appearance Ears, Nose, Throat: normal pharynx Neck: normal inspection, supple, full range of motion Cardiovascular: regular rate/rhythm Respiratory: decreased breath sounds Abdomen: normal bowel sounds, soft, non-tender Extremities: normal inspection Neurologic/Psychiatric: no motor/sensory deficits Results Last 24 Hours of Lab Results: Laboratory Tests 10/29 10/29 10/28 0640 [id number] Chemistry Sodium (137 - 145 mmol/L) 135 L Potassium (3.5 - 5.1 mmol/L) 3.9 Chloride (98 - 107 mmol/L) 96 L Carbon Dioxide (22 - 30 mmol/L) 26 Anion Gap (5 - 16) 14 BUN (9 - 20 mg/dL) 79 H Creatinine (0.7 - 1.2 mg/dL) 9.8 *H Estimated GFR (>60 ml/min) 5 L Glucose (65 - 99 mg/dL) 137 H Calcium (8.4 - 10.2 mg/dL) 7.9 L Phosphorus (2.5 - 4.5 mg/dL) 6.5 H Magnesium (1.6 - 2.3 mg/dL) 2.1 Total Bilirubin (0.2 - 1.3 mg/dL) 0.4 AST (17 - 59 U/L) 21 ALT (21 - 72 U/L) 44 Troponin I (<0.11 ng/ml) 0.38 *H Albumin (3.5 - 5.0 g/dL) 2.2 L Hematology CBC w Diff NO MAN DIFF REQ WBC (4.8 - 10.8 /CUMM) 7.8 RBC (4.70 - 6.10 /CUMM) 2.52 L Hgb (14.0 - 18.0 G/DL) 7.9 L Hct (42 - 52 %) 24.4 L MCV (80.0 - 94.0 FL) 96.9 H MCH (27.0 - 31.0 PG) 31.4 H MCHC (33.0 - 37.0 G/DL) 32.4 L RDW (11.5 - 14.5 %) 19.3 H Plt Count (130 - 400 /CUMM) 88 L MPV (7.4 - 10.4 FL) 8.0 Gran % (42.2 - 75.2 %) 86.6 H Lymphocytes % (20.5 - 51.1 %) 9.4 L Monocytes % (1.7 - 9.3 %) 4.0 Eosinophils % (0 - 5 %) 0 Basophils % (0.0 - 2.0 %) 0 Absolute Granulocytes (1.4 - 6.5 /CUMM) 6.7 H Absolute Lymphocytes (1.2 - 3.4 /CUMM) 0.7 L Lymphocytes (%) 8 Absolute Monocytes (0.10 - 0.60 /CUMM) 0.3 Absolute Eosinophils (0.0 - 0.7 /CUMM) 0 Absolute Basophils (0.0 - 0.2 /CUMM) 0 % Normal PMNs (%) 16 Other Body Source Fluid WBC (0 - 5 /CUMM) 81 H Fld Mesothelial Cells (%) Fld Total RBCs Counted (0 /CUMM) 26 H Last 24 Hours of [place] Results: BLOOD CULTURE REPORT Final 10/28/17-1223 GRAM STAIN SUGGESTIVE OF: GRAM POSITIVE COCCI IN PAIRS AND CHAINS Called to/Readback by CAROLINA by [facility] 10/26/[address] DARIANA NAVARRETE AT [phone] WAITING FOR RETURN CALL. RETURN CALL AT [phone] CULTURE: STREPTOCOCCUS PNEUMONIAE 1. STREPTOCOCCUS PNEUMONIAE RX AB ------ -- CEFTRIAXONE S TETRACYCLINE S TRIMETHOPRIM/SULFAMETHOXAZOLE R CLINDAMYCIN S ERYTHROMYCIN S PENICILLIN S VANCOMYCIN S Assessment/Plan ID Impression: This patient is a 66-year-old white male with multiple medical problems as noted above. The patient has a strep pneumo bacteremia which is likely secondary to a pulmonary source (but still unclear). Patient appears to be improving considerably with decrease in his pressors, normal blood pressure and no fever. LP would not be indicated at this time since the results with be inconclusive with several days of abx. His white count is normal. His physical exam does not demonstrate any sequela of emboli. Suggestion: 1. Continue ceftriaxone 2. Old off lumbar puncture since it would not change clinial management 3. Discontinue vancomycin 4. Out of bed and incentive spirometry at bedside Call with questions [phone]
--- NOTE | 2017-10-29 11:46 | PN- CRCU ---
Subjective HPI/Critical Care Issues: The patient is improving, currently feels well today and denies any fevers or chills. Continues with normal mentation. SIGNIFICANT DATA Blood is growing strep pneumo and it is sensitive to penicillin Electrolytes reviewed white count down to 7.8 Platelets are stabilizing INR 1.[address] scan reviewed Review of Systems Constitutional: Reports: no symptoms. EENTM: Reports: no symptoms. Cardiovascular: Reports: no symptoms. Respiratory: Reports: cough. Gastrointestinal: Reports: no symptoms. Genitourinary: Reports: no symptoms. Musculoskeletal: Reports: no symptoms. Skin: Reports: no symptoms. Neurological/Psychological: Reports: no symptoms. Objective Current Medications: Current Medications Sig/Christie Start time Last Medication Dose Route Stop Time Status Admin Acyclovir 200 MG DAILY 10/26 1000 AC 10/29 PO 0837 Ceftriaxone Sodium 2,000 MG 2100 10/27 2100 AC 10/28 IV 2142 Heparin Sodium 5,000 UNIT .STK-MED ONE 10/28 2341 DC (Porcine) IV 10/28 2342 Heparin Sodium 5,000 UNIT .STK-MED ONE 10/28 1747 DC (Porcine) IV 10/28 1748 Heparin Sodium 2,000 UNIT PER PROTOCL PRN 10/27 1015 AC 10/29 (Porcine) IP 0555 Hydrocortisone 100 MG Q8 10/28 1400 AC 10/29 Sodium Succinate IV 0555 Lubiprostone 24 MCG BID 10/25 2200 AC 10/29 PO 0838 Magnesium Oxide 400 MG DAILY 10/25 1611 AC 10/29 PO 0838 Midodrine 5 MG Q8 10/29 0600 AC 10/29 PO 0540 Midodrine 5 MG 0800,1200,1600 10/27 1200 DC 10/28 PO 1800 Multivitamins 1 TAB DAILY 10/26 1000 AC 10/29 PO 0838 Oxycodone HCl 10 MG Q4-6 PRN PRN 10/27 2045 AC PO Oxycodone HCl 20 MG 0900,2100 10/26 0900 AC 10/29 PO 0827 Polyethylene Glycol 17 GM DAILY 10/27 1645 AC 10/29 PO 0836 Prochlorperazine 10 MG Q6 PRN 10/25 1615 AC PO Senna/Docusate Sodium 1 TAB BID PRN 10/27 1645 AC 10/28 PO 1202 Sevelamer Carbonate 3,200 MG WM 10/25 1700 AC 10/29 PO 0827 Sevelamer Carbonate 1,600 MG TID PRN 10/25 1615 AC PO Vancomycin HCl 1,000 MG ONCE ONE 10/28 1200 DC 10/28 Dextrose/Water 250 ML IV 10/28 1259 1200 Vital Signs & I&O Last 24 Hrs of Vitals and I&O: Vital Signs Date Time Temp Pulse Resp B/P B/P Pulse O2 O2 Flow FiO2 Mean Ox Delivery Rate 10/29 0800 95 Nasal 2.0L Cannula 10/29 0800 97.9 78 20 90/58 95 Nasal 2.0L Cannula 10/29 0400 93 Nasal 2.0L Cannula 10/29 0000 96 Nasal 2.0L Cannula 10/29 0000 97.9 78 16 100/60 96 Nasal 2.0L Cannula 10/28 2000 92 Nasal 2.0L Cannula 10/28 1600 96 Nasal 2.0L Cannula 10/28 1600 97.8 78 18 98/64 93 Nasal 2.0L Cannula 10/28 1200 98 Nasal 2.0L Cannula Intake & Output 10/29 1600 10/29 0800 10/29 0000 Intake Total 60 613.6 Output Total -250 200 Balance 310 413.6 Intake, IV 613.6 Intake, Oral 60 Number 0 1 Bowel Movements Output, -250 200 Dialysate Patient 178 lb Weight Weight Bed scale Measurement Method Impression/Plan Impression/Plan Impression/Plan: General Appearance: well developed/nourished, no apparent distress, alert, awake , comfortable Head: atraumatic, normal appearance Ears, Nose, Throat: normal ENT inspection Neck: supple, right bandage in place secondary to IJ temporary, wound appears clean Cardiovascular: regular rate/rhythm Respiratory: decreased breath sounds Abdomen: soft, non-tender, peritoneal dialysis catheter in place Neurologic/Psychiatric: awake, alert, oriented x 3 CT scan of the chest reviewed Multilobar pneumonia versus atelectasis which are new with groundglass opacities with trace effusion with severe osteoporosis and numerous compression fractures IMPRESSION This is a gentleman with significant multiple myeloma, followed by oncology, Renal failure on peritoneal dialysis, treatment with cybor d and Aranesp, now here with * Sepsis probably due to strep pneumo due to multilobar pneumonia in an immunosuppressed patient * Severe multiple myeloma with recent chemotherapy seems to be relatively stable * Small bilateral effusion not enough to tap * Unlikely this could be bacterial meningitis * Severe osteoporosis and myeloma involvement of spine with chronic neck pain * Hypotension from sepsis which seems to have resolved * Paroxysmal atrial fibrillation on low dose eloquis with implantable loop recorder * End-stage renal disease on peritoneal dialysis * Elevated troponin upon admission appears to be to related to type II ischemia RECOMMENDATION * Continue current therapy with high-dose ceftriaxone * Restart anticoagulation * Continue perioneal dialysis * Follow his blood work * Continue Midodrin * Reduce hydrocortisone to 50 mg every 8 hours after today and as oncology if he needs to be on steroids * Continue his acyclovir * Aggressive bowel regimen Patient can be transferred to the floor
[2017-10-29 16:00] VITALS: BP 96/54
[2017-10-29 20:08] VITALS: BP 100/60
[2017-10-30 06:22] VITALS: BP 108/64
--- NOTE | 2017-10-30 07:24 | PN- Housestaff ---
HuyAmelia 10/30/17 0723: Subjective Follow-up For: - Septic shock msot likely 2/2 Strep Pneumo - PNA vs meningitis - ESRD on PD - Acute on chronic anemia 2/2 ESRD, and MM s/p 2 units of PRBC x2 - Multiple myleoma on chemo - currently on hold - Acuet on chronic back pain - Type II [place] - Hx of chronic afib on Eliquis Complaints: no complaints Subjective: Patient seen and examined at bedside. He looks tired, but denies nay fevers, chils, cough, shortness of breath, CP. He c/o back pain fo9rm his cervical spine down. Review of Systems Constitutional: Denies: chills, fever, weakness. EENTM: Reports: visual changes. Cardiovascular: Denies: chest pain, orthopena, palpitations, peripheral edema. Respiratory: Denies: cough, orthopnea, short of breath, sputum production. Gastrointestinal: Denies: abdominal pain, constipation, diarrhea, nausea, vomiting. Genitourinary: Reports: no symptoms. Musculoskeletal: Reports: back pain, joint pain. Neurological/Psychological: Denies: headache, numbness, tingling, tremors. Objective Last 24 Hrs of Vital Signs/I&O Vital Signs Date Time Temp Pulse Resp B/P B/P Pulse O2 O2 Flow FiO2 Mean Ox Delivery Rate 10/30 621 97.5 72 18 108/64 92 Nasal 2.0L Cannula 10/30 0000 Nasal 2.0L Cannula 10/30 2007 96.3 80 20 100/60 97 Nasal 2.0L Cannula 10/29 1600 Nasal 2.0L Cannula 10/29 1600 98.2 77 22 96/54 96 Nasal 2.0L Cannula 10/29 0800 95 Nasal 2.0L Cannula 10/29 0800 97.9 78 20 90/58 95 Nasal 2.0L Cannula Intake & Output 10/30 0800 10/30 0000 10/29 1600 Intake Total 90 2460 Output Total -500 1500 Balance 500 90 960 Intake, 2100 Dialysate Intake, IV 40 Intake, Oral 50 360 Number 0 Bowel Movements Output, -500 1500 Dialysate Output, Urine 0 Patient 177 lb Weight Weight Bed scale Measurement Method Physical Exam General Appearance: Oriented X3, Cooperative, No Acute Distress (Tired) Skin Temp/Moisture Exam: Warm/Dry HEENT: Atraumatic, PERRLA, EOMI, Mucous Membr. moist/pink Neck: Supple, No JVD, No thryomegaly, No LAD Cardiovascular: Normal S1, Normal S2, No Murmurs Lungs: Clear to Auscultation, Normal Air Movement Abdomen: Normal Bowel Sounds, Soft, No Tenderness, peritoneal catheter in place; skin intact, no breakdown, erythema, or signs of infection Neurological: Normal Speech, Strength at 5/5 X4 Ext Extremities: No Edema Vascular: Normal Pulses, Pulses Symmetrical Current Medications: Current Medications Sig/Christie Start time Last Medication Dose Route Stop Time Status Admin Acyclovir 200 MG DAILY 10/26 1000 AC 10/29 PO 0837 Apixaban 2.5 MG BID 10/29 1158 AC 10/29 PO 2159 Calcium Carbonate 500 MG ONCE ONE 10/29 1645 DC 10/29 PO 10/29 164 1713 Ceftriaxone Sodium 2,000 MG 2100 10/27 2100 AC 10/29 IV 2159 Heparin Sodium 2,000 UNIT PER PROTOCL PRN 10/30 0645 AC 10/30 (Porcine) SC 0644 Heparin Sodium 5,000 UNIT .STK-MED ONE 10/29 1818 DC (Porcine) IV 10/29 1819 Heparin Sodium 5,000 UNIT .STK-MED ONE 10/29 1209 DC (Porcine) IV 10/29 1210 Heparin Sodium 2,000 UNIT PER PROTOCL PRN 10/27 1015 DC 10/30 (Porcine) IP 0058 Hydrocortisone 100 MG Q8 10/28 1400 AC 10/30 Sodium Succinate IV 0645 Lubiprostone 24 MCG BID 10/25 2200 AC 10/29 PO 2159 Magnesium Oxide 400 MG DAILY 10/25 1611 AC 10/29 PO 0838 Midodrine 7.5 MG Q8 10/29 1400 AC 10/30 PO 0645 Midodrine 5 MG Q8 10/29 0600 DC 10/29 PO 0540 Multivitamins 1 TAB DAILY 10/26 1000 AC 10/29 PO 0838 Oxycodone HCl 10 MG Q4-6 PRN PRN 10/27 2045 AC 10/29 PO 2000 Oxycodone HCl 20 MG 0900,2100 10/26 0900 AC 10/29 PO 2159 Polyethylene Glycol 17 GM DAILY 10/27 1645 AC 10/29 PO 0836 Prochlorperazine 10 MG Q6 PRN 10/25 1615 AC PO Senna/Docusate Sodium 1 TAB BID PRN 10/27 1645 AC 10/28 PO 1202 Sevelamer Carbonate 3,200 MG WM 10/25 1700 AC 10/29 PO 1754 Sevelamer Carbonate 1,600 MG TID PRN 10/25 1615 AC PO Last 24 Hrs of Lab/Tyler Results Last 24 Hrs of Labs/Mics: Laboratory Tests 10/30/17 0730: Anion Gap 15, Estimated GFR 6 L, Glucose 131 H, Calcium 7.8 L, Phosphorus 6.5 H, Magnesium 2.1, Total Bilirubin 0.3, AST 21, ALT 44, Albumin 2.3 L, CBC w Diff NO MAN DIFF REQ, RBC 2.60 L, MCV 96.4 H, MCH 32.2 H, MCHC 33.4, RDW 18.3 H, MPV 8.2, Gran % 92.3 H, Lymphocytes % 5.6 L, Monocytes % 2.0, Eosinophils % 0.1, Basophils % 0, Absolute Granulocytes 9.1 H, Absolute Lymphocytes 0.5 L, Absolute Monocytes 0.2, Absolute Eosinophils 0, Absolute Basophils 0 Assessment/Plan Assessment: Mr Grant is a 66-year-old gentleman with history of multiple myeloma ( cyclophosphamide, bortezomib, dexamethasone + E Po-last chemo 10/18/2017), previously on hemodialysis, end-stage renal disease and currently on peritoneal dialysis came to the hospital with a chief concern of confusion, hypotension. He was initially admitted to telemetry floor and transferred to ICU for hypotension requiring central line and vasopressors for sepsis thought to be 2/2 meningitis, and or PNA, with blood cultures showing growth of Strep Pneumo. He was started on Vanc and Ceftriaxone and subsequently narrowed down to Ceftriaxone after sensitivities for Strep Pneumo came back being sensitive to penicillin. He was then trasnferred to [facility] for further management. Assessment and Plan: # Septic shock sec to strep pneumonia - Patient was transferred from telemetry to ICU for persistent hypotension, fever, gram positive cocci bacteremia. Patient was found to have fever, hypotension, headache, neck stiffness with gram-positive bacteremia. Possible differentials at that time were meningitis versus pneumonia versus peritoneal fluid infection given cloudy peritoneal fluid. Patient blood cultures are positive for strep pneumonia sensitive . CAT scan chest was done which showed Multi sublobar areas of consolidation consistent with pneumonia and/or atelectasis. These are in a similar distribution to that seen in 2017 but are worse. New area of groundglass opacity apex right upper lobe. Initially patient was started on ceftriaxone 2 g daily and vancomycin 1 g daily to cover strep pneumonia, meningitis. Later blood culture turned out strep pneumonia, patient was continued on ceftriaxone 2 g daily for strep pneumonia. Vancomycin was discontinued. Patient remained afebrile with normal WBC count. Patient was also continued on acyclovir prophylactic dose. - He will require 2g of Cetraixone for possible meningitis for a total foR 14 days. ID recs appreciated. - Will discuss with nephrology regarding admistering it intraperitonally, else will place PICC line. # Hypotension - Stable. Patient was found to have persistent hypotension with SBP varying between 60-70. He was transferred from telemetry to ICU for central line placement and hypotension management. Right IJ central line was placed, started on levophed. Later levophed was titrated off once his SBP was 90. Off note his baseline blood pressure varies between 80-90. Triple lumen catheter was removed on 10/27 at bedside with the no complications. - Patient was also started on midodrine 5 mg 3 times daily for hypotension,as well as hydrocortisone 100 mg every 8 hours, which was tapered to 50 mg every 8 hours today. # Acute on chronic anemia s/p tx with 2 PRBC thrombocytopenia - H&H stable. - Patient received 2 units of PRBCs. - Goal H&H > 8/25 - Of note her stools were quiac negative. - Continue to monitor hemoglobin and platelet count # End-stage renal disease on peritoneal dialysis Peritoneal dialysis as per master craftsman recommendations. D/C Heparin 2000 units per dialysis bag, as per master craftsman. Monitor for electrolyte shifts. Will D/C peritoneal fluid cell count and cultures monitoring # Pain Management/ multiple myeloma (cyclophosphamide, bortezomib, dexamethasone + E Po-last chemo 10/18/2017) Continue pain medications oxycodone and OxyContin at home dose for back pain. Will obtain an MRI of total spine to ensure he doesnt have any abscess or worsenihg lytic lesions given MM. F/U MRI w/o ACE of total spine Paroxysmal atrial fibrillation - Currently rate controlled. - Continue to hold Co-reg. - Meanwhile restarted eliquis # Type II [place] - Elevated troponin and no EKG changes possibly from demand supply mismatch and hypotension DVT prophylaxis-pharmacological eliqus. Diet-reg diet Patient's family refused renal dialysis diet Code Status Full Code Problem List: 1. History of multiple myeloma 2. Elevated troponin 3. Pneumonia Pain Ratin Pain Location: BACK PAIN Pain Goal: Remain pain free Pain Plan: ROXICODONE; OXYCODONE Tomorrow's Labs & Rationales: cbc- thrombocytopenia, H&H BEP - cr Isidro Echeverria MD 10/30/17 1735: Attending MD Review Statement Attending Statement Attending MD Statement: examined this patient, discuss w/resident/PA/CYLINDER WORKER, agreed w/resident/PA/CYLINDER WORKER, discussed with family, reviewed EMR data (avail), discussed with nursing, discussed with case mgmt, amended to note Attending Assessment/Plan: The patient was seen and discussed with house staff. Appreciate ID, Oncology and Nephrology input. Will re-arrange times of peritoneal dialysis to allow better sleep. PT consult, MRI of spine. Will hold Apixaban for PICC line placement for IV antibiotics.
--- NOTE | 2017-10-30 07:25 | PN- Oncology ---
Subjective Subjective: Feeling improved, diffuse back pain persists, denies focal neurologic deficit 12 point review of systems otherwise unchanged Objective Vital Signs and I&Os Vital Signs Date Time Temp Pulse Resp B/P B/P Pulse O2 O2 Flow FiO2 Mean Ox Delivery Rate 10/30 621 97.5 72 18 108/64 92 Nasal 2.0L Cannula 10/30 0000 Nasal 2.0L Cannula 10/30 2007 96.3 80 20 100/60 97 Nasal 2.0L Cannula 10/30 1599 Nasal 2.0L Cannula 10/30 1599 98.2 77 22 96/54 96 Nasal 2.0L Cannula 10/30 799 95 Nasal 2.0L Cannula 10/30 799 97.9 78 20 90/58 95 Nasal 2.0L Cannula Intake & Output 10/30 0800 10/30 0000 10/29 1600 10/29 0800 10/29 0000 10/28 1600 Intake Total 90 2460 60 613.6 1050 Output Total -500 1500 -250 200 -400 Balance 500 90 960 310 413.6 1450 Intake, 2100 Dialysate Intake, IV 40 613.6 250 Intake, Oral 50 360 60 800 Number 0 0 1 1 Bowel Movements Output, -500 1500 -250 200 -400 Dialysate Output, Urine 0 Patient 177 lb 178 lb 173 lb Weight Weight Bed scale Bed scale Measurement Method Gen.: in NAD ENT: Sclera anicteric Chest: Normal respiratory effort, decreased breath sounds Cor: RRR, no extra sounds Abdomen: Soft, bowel sounds present, no tenderness, no rebound Extremities: Without clubbing, cyanosis, or asymmetric edema Neurology: Alert and oriented 3, no gross deficit Current Medications: Current Medications Sig/Christie Start time Last Medication Dose Route Stop Time Status Admin Acyclovir 200 MG DAILY 10/26 1000 AC 10/29 PO 0837 Apixaban 2.5 MG BID 10/29 1158 AC 10/29 PO 2159 Calcium Carbonate 500 MG ONCE ONE 10/29 1645 DC 10/29 PO 10/29 1646 1713 Ceftriaxone Sodium 2,000 MG 2100 10/27 2100 AC 10/29 IV 2159 Heparin Sodium 2,000 UNIT PER PROTOCL PRN 10/30 0645 AC 10/30 (Porcine) SC 0644 Heparin Sodium 5,000 UNIT .STK-MED ONE 10/29 181 DC (Porcine) IV 10/29 181 Heparin Sodium 5,000 UNIT .STK-MED ONE 10/29 1209 DC (Porcine) IV 10/29 1210 Heparin Sodium 2,000 UNIT PER PROTOCL PRN 10/27 1015 DC 10/30 (Porcine) IP 0058 Hydrocortisone 100 MG Q8 10/28 1400 AC 10/30 Sodium Succinate IV 0645 Lubiprostone 24 MCG BID 10/25 2200 AC 10/29 PO 2159 Magnesium Oxide 400 MG DAILY 10/25 1611 AC 10/29 PO 0838 Midodrine 7.5 MG Q8 10/29 1400 AC 10/30 PO 0645 Midodrine 5 MG Q8 10/29 0600 DC 10/29 PO 0540 Multivitamins 1 TAB DAILY 10/26 1000 AC 10/29 PO 0838 Oxycodone HCl 10 MG Q4-6 PRN PRN 10/27 2045 AC 10/29 PO 2000 Oxycodone HCl 20 MG 0900,2100 10/26 0900 AC 10/29 PO 2159 Polyethylene Glycol 17 GM DAILY 10/27 1645 AC 10/29 PO 0836 Prochlorperazine 10 MG Q6 PRN 10/25 1615 AC PO Senna/Docusate Sodium 1 TAB BID PRN 10/27 1645 AC 10/28 PO 1202 Sevelamer Carbonate 3,200 MG WM 10/25 1700 AC 10/29 PO 1754 Sevelamer Carbonate 1,600 MG TID PRN 10/25 1615 AC PO Assessment/Plan Assessment/Recommendations: 1. Strep sepsis-? Source Recommend- Antibiotics Length of antibiotic therapy as per Bharath Prado MD 2. Multiple myeloma-chemotherapy on hold, neck and back pain persists-please obtain an MRI of total spine with gadolinium 3. Anemia-keep hematocrit>25%
[2017-10-30 09:32] LABS: ABSOLUTE BASOPHIL COUNT 0 /CUMM (0.0-0.2); ABSOLUTE EOSINOPHIL COUNT 0 /CUMM (0.0-0.7); ABSOLUTE GRANULOCYTE CT 9.1 /CUMM (1.4-6.5); ABSOLUTE LYMPH COUNT 0.5 /CUMM (1.2-3.4); ABSOLUTE MONOCYTE COUNT 0.2 /CUMM (0.10-0.60); BASOPHIL % 0 % (0.0-2.0); EOSINOPHIL % 0.1 % (0-5); MEAN CORPUSCULAR HGB 32.2 PG (27.0-31.0); MEAN CORPUSCULAR HGB CONC 33.4 G/DL (33.0-37.0); MEAN CORPUSCULAR VOLUME 96.4 FL (80.0-94.0); MEAN PLATELET VOLUME 8.2 FL (7.4-10.4); PLATELET COUNT 87 /CUMM (130-400); RBC DISTRIBUTION WIDTH 18.3 % (11.5-14.5); WHITE BLOOD CELL COUNT 9.9 /CUMM (4.8-10.8)
--- NOTE | 2017-10-30 09:38 | Transfer of Care Summary ---
Hospital Course Course Hospital Course: Mr Grant is a 66-year-old gentleman with history of multiple myeloma ( cyclophosphamide, bortezomib, dexamethasone + E Po-last chemo 10/18/2017), previously on hemodialysis, end-stage renal disease and currently on peritoneal dialysis came to the hospital with a chief concern of confusion, hypotension. He was initially admitted to telemetry floor and transferred to ICU for hypotension requiring central line and vasopressors. Etiology of this hypotensive episode, but resulted in altered mental status was most likely due to an infection leading to septic shock. The source of infection was unclear at the time of admission, with meningitis, lung, peritoneal fluid seemed the putative sources. Microbiology revealed growth of gram-positive cocci in pairs and chains- pneumococcus making meningitis and pneumonia likely. Other source of infection could be peritonitis secondary to peritoneal dialysis, but pneumococcus seems unlikely, but possible. He has been treated with ceftriaxone, and vancomycin as needed as per Vanco levels given peritoneal dialysis, would cover for strep pneumo (Even resistant species). If the peritoneal fluid cultures are positive for any other organism, other than gram- positive cocci would defer the decision to add another antibiotic. For now considering sepsis and septic shock, intravenous antibiotics are preferred over intraperitoneal antibiotics. Problem list: #1 septic shock - on antibiotics. off from pressors #2 anemia of chronic disease #3 multiple myeloma on chemotherapy #4 end-stage renal disease on peritoneal dialysis #5 back pain on pain meds #6 thrombocytopenia #7 paroxysmal atrial fibrillation- coreg on hold, Restarted eliqus #8. Type II [place] elevated troponin and no EKG changes possibly from demand supply mismatch and hypotension ------ septic shock sec to strep pneumonia He was transferred from telemetry to ICU for persistent hypotension, fever, gram positive cocci bacteremia. Patient was found to have fever, hypotension, headache, neck stiffness with gram-positive bacteremia. Possible differentials at that time were meningitis versus pneumonia versus peritoneal fluid infection given cloudy peritoneal fluid. Patient blood cultures are positive for gram-positive cocci in pairs and chains - showed to be strep pneumonia. CAT scan chest was done which showed Multi sublobar areas of consolidation consistent with pneumonia and/or atelectasis. These are in a similar distribution to that seen in 2017 but are worse. New area of groundglass opacity apex right upper lobe. Initially patient was started on ceftriaxone 2 g daily and vancomycin 1 g daily to cover strep pneumonia, meningitis. Later blood culture turned out strep pneumonia, patient was continued on ceftriaxone 2 g daily for strep pneumonia. Vancomycin was discontinued. Vitals were monitored daily, patient remained afebrile with normal WBC count. Patient was also continued on acyclovir prophylactic dose. Continue to monitor peritoneal fluid cell count and cultures/ BLOOD CULTURES. Adjust antibiotics based on ID recommendations. Hypotension He was found to have persistent hypotension with SBP varying between 60-70. He was transferred from telemetry to ICU for central line placement and hypotension management. Right IJ central line was placed, started on levophed. Later levophed was titrated off once his SBP was 90. Off note his baseline blood pressure varies between 80-90. Triple lumen catheter was removed on 10/27/2017 at bedside with the no complications. Patient was also started on midodrine 5 mg 3 times daily for hypotension. Was also started on hydrocortisone 100 mg every 8 hours, planning to switch to 50 mg every 8 hours on 10/29/2017 ----- Hematology-anemia, thrombocytopenia Hemoglobin 7.9 and hematocrit 24.4 status post 2 units of blood transfusion. Stools were negative. Continue to monitor hemoglobin and platelet count End-stage renal disease on peritoneal dialysis Peritoneal dialysis as per insurance follow up rep recommendations. Heparin 2000 units per dialysis bag, as per insurance follow up rep. Monitor for electrolyte shifts. Continue to monitor peritoneal fluid cell count and cultures ------ Pain Management/ multiple myeloma (cyclophosphamide, bortezomib, dexamethasone + E Po-last chemo 10/18/2017) Watch for mental status changes. continue pain medications oxycodone and OxyContin at home dose for back pain. paroxysmal atrial fibrillation- coreg on hold, Restarted eliqus Type II [place] elevated troponin and no EKG changes possibly from demand supply mismatch and hypotension --- DVT prophylaxis-pharmacological eliqus. Diet-reg diet Housekeeping ICU : #1 Central [id number] catheter was removed under aseptic conditions 10/27. Tip was visualized, and pressure was applied for approximately 10 minutes. Assertained that there was no external evidence of bleeding after removal. Blood pressure stable. #2 Arterial line-none #3 Toro catheter-none #4 Rectal tube-none #5 NG tube-none #6 IV/peripheral line #7 IV drips- Normal saline #8 Vent settings: none #9 pressors: Levophed was discontinued. Assessment/Plan: .
[2017-10-30 10:36] LABS: GRANULOCYTE % 92.3 % (42.2-75.2)
--- NOTE | 2017-10-30 11:48 | PN- Infect Dx ---
Subjective Subjective: Afebrile on steroids. He feels improved though still complains of pain in multiple areas including the left shoulder, abdomen and back. His neck pain is improved. Objective Last 24 Hrs of Vital Signs/I&O Vital Signs Date Time Temp Pulse Resp B/P B/P Pulse O2 O2 Flow FiO2 Mean Ox Delivery Rate 10/30 621 97.5 72 18 108/64 92 Nasal 2.0L Cannula 10/30 0000 Nasal 2.0L Cannula 10/30 2007 96.3 80 20 100/60 97 Nasal 2.0L Cannula 10/30 1599 Nasal 2.0L Cannula 10/30 1599 98.2 77 22 96/54 96 Nasal 2.0L Cannula Intake & Output 10/30 0800 10/30 0000 Intake Total 120 90 Output Total -600 Balance 720 90 Intake, IV 20 40 Intake, Oral 100 50 Output, -600 Dialysate Patient 177 lb Weight Weight Bed scale Measurement Method Physical Exam Other Physical Findings: He appears comfortable in no acute distress Lungs rhonchi on the right Heart regular rhythm with a 1/6 systolic ejection murmur Abdomen is mildly distended, nontender with positive bowel sounds Extremities no cyanosis, clubbing or edema Results Last 24 Hours of Lab Results: Laboratory Tests 10/30 0730 Chemistry Sodium (137 - 145 mmol/L) 136 L Potassium (3.5 - 5.1 mmol/L) 4.0 Chloride (98 - 107 mmol/L) 95 L Carbon Dioxide (22 - 30 mmol/L) 27 Anion Gap (5 - 16) 15 BUN (9 - 20 mg/dL) 92 H Creatinine (0.7 - 1.2 mg/dL) 9.5 *H Estimated GFR (>60 ml/min) 6 L Glucose (65 - 99 mg/dL) 131 H Calcium (8.4 - 10.2 mg/dL) 7.8 L Phosphorus (2.5 - 4.5 mg/dL) 6.5 H Magnesium (1.6 - 2.3 mg/dL) 2.1 Total Bilirubin (0.2 - 1.3 mg/dL) 0.3 AST (17 - 59 U/L) 21 ALT (21 - 72 U/L) 44 Albumin (3.5 - 5.0 g/dL) 2.3 L Hematology CBC w Diff NO MAN DIFF REQ WBC (4.8 - 10.8 /CUMM) 9.9 RBC (4.70 - 6.10 /CUMM) 2.60 L Hgb (14.0 - 18.0 G/DL) 8.4 L Hct (42 - 52 %) 25.0 L MCV (80.0 - 94.0 FL) 96.4 H MCH (27.0 - 31.0 PG) 32.2 H MCHC (33.0 - 37.0 G/DL) 33.4 RDW (11.5 - 14.5 %) 18.3 H Plt Count (130 - 400 /CUMM) 87 L MPV (7.4 - 10.4 FL) 8.2 Gran % (42.2 - 75.2 %) 92.3 H Lymphocytes % (20.5 - 51.1 %) 5.6 L Monocytes % (1.7 - 9.3 %) 2.0 Eosinophils % (0 - 5 %) 0.1 Basophils % (0.0 - 2.0 %) 0 Absolute Granulocytes (1.4 - 6.5 /CUMM) 9.1 H Absolute Lymphocytes (1.2 - 3.4 /CUMM) 0.5 L Absolute Monocytes (0.10 - 0.60 /CUMM) 0.2 Absolute Eosinophils (0.0 - 0.7 /CUMM) 0 Absolute Basophils (0.0 - 0.2 /CUMM) 0 Last 24 Hours of Tyler Results: Blood cultures 2 October 26 positive for strep pneumoniae resistant to Bactrim Peritoneal fluid culture October 26 negative Peritoneal fluid culture October 27 negative Peritoneal fluid culture October 28 negative Recent Imaging Studies: CT of the chest October 27 reveals multilobar areas of consolidation in a similar distribution to that seen on a prior CT in 2017 but worse; new area of ground glass opacity in the apex of the right upper lobe Assessment/Plan ID Impression: Overall improved, with temperatures remaining normal (on steroids) and white blood cell count also normal, on Ceftriaxone Day 4 of treatment for pneumococcal sepsis, possibly secondary to pneumonia, with the recent CT of the chest revealing a new area of ground glass opacity in the apex of the right upper lobe in addition to multilobar areas of consolidation that were present but increased from a previous CT scan 1 year ago. Other possible sources of infection include meningitis, with a lumbar puncture unable to be performed initially as he was on Eliquis (which he is now back on), or peritonitis secondary to his Tenckhoff catheter, with the cell count of the peritoneal fluid at one point revealing over 1400 neutrophils and with the gram stain of one of the samples positive for gram-positive cocci, but with the cultures all negative. The cell count of his dialysate fluid continues to improve; therefore the Tenckhoff catheter should not need to be removed. At this point, if he is to be continued on treatment for possible meningitis, he will need to remain on 2 g of Ceftriaxone daily for at least 10-14 days. Suggestion: 1. Should not need any further cultures of the dialysate fluid 2. Await MRI of the spine per Oncology 3. Continue Ceftriaxone (will discuss with Renal possibility of dosing it intraperitoneally)
--- NOTE | 2017-10-30 12:59 | PN- Nephrology ---
Assessment/Plan Nephrology Assessment: Volume overloaded. WBC count in PD fluid down to 81 yesterdy. Suggestion: Will change to all 2.5% dextrose, 2.5 meq Ca, 4 exchanges a day (700, 1200, 1700 , 2200). Subjective Subjective: Patient awake, not SOB, weight up however. Objective Vital Signs and I&Os Vital Signs Date Time Temp Pulse Resp B/P B/P Pulse O2 O2 Flow FiO2 Mean Ox Delivery Rate 10/30 0800 Nasal 2.0L Cannula 10/30 621 97.5 72 18 108/64 92 Nasal 2.0L Cannula 10/30 0000 Nasal 2.0L Cannula 10/30 2007 96.3 80 20 100/60 97 Nasal 2.0L Cannula 10/30 1599 Nasal 2.0L Cannula 10/30 1599 98.2 77 22 96/54 96 Nasal 2.0L Cannula Intake & Output 10/30 1600 10/30 0400 10/29 1600 10/29 0400 10/28 1600 10/28 0400 Intake Total 909 74 9022 613.6 1050 220 Output Total -100 -500 1250 200 -800 -275 Balance 520 451 5461 413.6 1850 495 Intake, 2100 Dialysate Intake, IV 20 40 613.6 250 20 Intake, Oral 100 50 420 800 200 Number 0 1 1 0 Bowel Movements Output, -100 -500 1250 200 -800 -275 Dialysate Output, Urine 0 0 Patient 177 lb 178 lb 173 lb Weight Weight Bed scale Bed scale Bed scale Measurement Method Physical Exam: NAD VS as above Lungs:clear CV: no rub Abd: nontender Exts: 1+ dependent edema Neuro: A&O Current Medications: Current Medications Sig/Christie Start time Last Medication Dose Route Stop Time Status Admin Acyclovir 200 MG DAILY 10/26 1000 DC 10/30 PO 0829 Apixaban 2.5 MG BID 10/29 1158 AC 10/30 PO 0829 Calcium Carbonate 500 MG ONCE ONE 10/29 1645 DC 10/29 PO 10/29 164 1713 Ceftriaxone Sodium 2,000 MG 2100 10/27 2100 AC 10/29 IV 2159 Heparin Sodium 2,000 UNIT PER PROTOCL PRN 10/30 0645 AC 10/30 (Porcine) SC 0644 Heparin Sodium 5,000 UNIT .STK-MED ONE 10/29 1817 DC (Porcine) IV 10/29 1819 Heparin Sodium 2,000 UNIT PER PROTOCL PRN 10/27 1015 DC 10/30 (Porcine) IP 0058 Hydrocortisone 50 MG Q8 10/30 1400 AC Sodium Succinate IV Hydrocortisone 100 MG Q8 10/28 1400 DC 10/30 Sodium Succinate IV 0645 Lubiprostone 24 MCG BID 10/25 2200 AC 10/30 PO 0829 Magnesium Oxide 400 MG DAILY 10/25 1611 AC 10/30 PO 0829 Midodrine 7.5 MG Q8 10/29 1400 AC 10/30 PO 0645 Midodrine 5 MG Q8 10/29 0600 DC 10/29 PO 0540 Multivitamins 1 TAB DAILY 10/26 1000 AC 10/30 PO 0829 Oxycodone HCl 10 MG Q4-6 PRN PRN 10/27 2045 AC 10/30 PO 1123 Oxycodone HCl 20 MG 0900,2100 10/26 0900 AC 10/30 PO 0830 Polyethylene Glycol 17 GM DAILY 10/27 1645 AC 10/30 PO 0837 Prochlorperazine 10 MG Q6 PRN 10/25 1615 AC PO Senna/Docusate Sodium 1 TAB BID PRN 10/27 1645 AC 10/28 PO 1202 Sevelamer Carbonate 3,200 MG WM 10/25 1700 AC 10/30 PO 1209 Sevelamer Carbonate 1,600 MG TID PRN 10/25 1615 AC PO Results Pertinent Lab Results: Laboratory Tests 10/30 10/29 0730 0640 Chemistry Sodium (137 - 145 mmol/L) 136 L Potassium (3.5 - 5.1 mmol/L) 4.0 Chloride (98 - 107 mmol/L) 95 L Carbon Dioxide (22 - 30 mmol/L) 27 Anion Gap (5 - 16) 15 BUN (9 - 20 mg/dL) 92 H Creatinine (0.7 - 1.2 mg/dL) 9.5 *H Estimated GFR (>60 ml/min) 6 L Glucose (65 - 99 mg/dL) 131 H Calcium (8.4 - 10.2 mg/dL) 7.8 L Phosphorus (2.5 - 4.5 mg/dL) 6.5 H Magnesium (1.6 - 2.3 mg/dL) 2.1 Total Bilirubin (0.2 - 1.3 mg/dL) 0.3 AST (17 - 59 U/L) 21 ALT (21 - 72 U/L) 44 Albumin (3.5 - 5.0 g/dL) 2.3 L Hematology CBC w Diff NO MAN DIFF REQ WBC (4.8 - 10.8 /CUMM) 9.9 RBC (4.70 - 6.10 /CUMM) 2.60 L Hgb (14.0 - 18.0 G/DL) 8.4 L Hct (42 - 52 %) 25.0 L MCV (80.0 - 94.0 FL) 96.4 H MCH (27.0 - 31.0 PG) 32.2 H MCHC (33.0 - 37.0 G/DL) 33.4 RDW (11.5 - 14.5 %) 18.3 H Plt Count (130 - 400 /CUMM) 87 L MPV (7.4 - 10.4 FL) 8.2 Gran % (42.2 - 75.2 %) 92.3 H Lymphocytes % (20.5 - 51.1 %) 5.6 L Monocytes % (1.7 - 9.3 %) 2.0 Eosinophils % (0 - 5 %) 0.1 Basophils % (0.0 - 2.0 %) 0 Absolute Granulocytes (1.4 - 6.5 /CUMM) 9.1 H Absolute Lymphocytes (1.2 - 3.4 /CUMM) 0.5 L Lymphocytes (%) 8 Absolute Monocytes (0.10 - 0.60 /CUMM) 0.2 Absolute Eosinophils (0.0 - 0.7 /CUMM) 0 Absolute Basophils (0.0 - 0.2 /CUMM) 0 % Normal PMNs (%) 16 Other Body Source Fluid WBC (0 - 5 /CUMM) 81 H Fld Mesothelial Cells (%) Fld Total RBCs Counted (0 /CUMM) 26 H 10/29 10/28 10/28 0435 2134 0630 Chemistry Sodium (137 - 145 mmol/L) 135 L Potassium (3.5 - 5.1 mmol/L) 3.9 Chloride (98 - 107 mmol/L) 96 L Carbon Dioxide (22 - 30 mmol/L) 26 Anion Gap (5 - 16) 14 BUN (9 - 20 mg/dL) 79 H Creatinine (0.7 - 1.2 mg/dL) 9.8 *H Estimated GFR (>60 ml/min) 5 L Glucose (65 - 99 mg/dL) 137 H Calcium (8.4 - 10.2 mg/dL) 7.9 L Phosphorus (2.5 - 4.5 mg/dL) 6.5 H Magnesium (1.6 - 2.3 mg/dL) 2.1 Total Bilirubin (0.2 - 1.3 mg/dL) 0.4 AST (17 - 59 U/L) 21 ALT (21 - 72 U/L) 44 Troponin I (<0.11 ng/ml) 0.38 *H Albumin (3.5 - 5.0 g/dL) 2.2 L Hematology CBC w Diff NO MAN DIFF REQ WBC (4.8 - 10.8 /CUMM) 7.8 RBC (4.70 - 6.10 /CUMM) 2.52 L Hgb (14.0 - 18.0 G/DL) 7.9 L Hct (42 - 52 %) 24.4 L MCV (80.0 - 94.0 FL) 96.9 H MCH (27.0 - 31.0 PG) 31.4 H MCHC (33.0 - 37.0 G/DL) 32.4 L RDW (11.5 - 14.5 %) 19.3 H Plt Count (130 - 400 /CUMM) 88 L MPV (7.4 - 10.4 FL) 8.0 Gran % (42.2 - 75.2 %) 86.6 H Lymphocytes % (20.5 - 51.1 %) 9.4 L Monocytes % (1.7 - 9.3 %) 4.0 Eosinophils % (0 - 5 %) 0 Basophils % (0.0 - 2.0 %) 0 Absolute Granulocytes (1.4 - 6.5 /CUMM) 6.7 H Absolute Lymphocytes (1.2 - 3.4 /CUMM) 0.7 L Lymphocytes (%) 2 Absolute Monocytes (0.10 - 0.60 /CUMM) 0.3 Absolute Eosinophils (0.0 - 0.7 /CUMM) 0 Absolute Basophils (0.0 - 0.2 /CUMM) 0 % Normal PMNs (%) 10 Other Body Source Fluid WBC (0 - 5 /CUMM) 272 H Fld Mesothelial Cells (%) Fld Total RBCs Counted (0 /CUMM) 20 H 10/28 0400 Chemistry Sodium (137 - 145 mmol/L) 136 L Potassium (3.5 - 5.1 mmol/L) 3.9 Chloride (98 - 107 mmol/L) 95 L Carbon Dioxide (22 - 30 mmol/L) 27 Anion Gap (5 - 16) 14 BUN (9 - 20 mg/dL) 74 H Creatinine (0.7 - 1.2 mg/dL) 9.8 *H Estimated GFR (>60 ml/min) 5 L Glucose (65 - 99 mg/dL) 125 H Calcium (8.4 - 10.2 mg/dL) 8.1 L Phosphorus (2.5 - 4.5 mg/dL) 7.1 H Magnesium (1.6 - 2.3 mg/dL) 2.0 Total Bilirubin (0.2 - 1.3 mg/dL) 0.5 AST (17 - 59 U/L) 89 H ALT (21 - 72 U/L) 65 Albumin (3.5 - 5.0 g/dL) 2.3 L Hematology CBC w Diff NO MAN DIFF REQ WBC (4.8 - 10.8 /CUMM) 5.7 RBC (4.70 - 6.10 /CUMM) 2.36 L Hgb (14.0 - 18.0 G/DL) 7.6 L Hct (42 - 52 %) 22.7 L MCV (80.0 - 94.0 FL) 96.4 H MCH (27.0 - 31.0 PG) 32.4 H MCHC (33.0 - 37.0 G/DL) 33.6 RDW (11.5 - 14.5 %) 19.0 H Plt Count (130 - 400 /CUMM) 85 L MPV (7.4 - 10.4 FL) 8.2 Gran % (42.2 - 75.2 %) 81.5 H Lymphocytes % (20.5 - 51.1 %) 14.7 L Monocytes % (1.7 - 9.3 %) 3.8 Eosinophils % (0 - 5 %) 0 Basophils % (0.0 - 2.0 %) 0 Absolute Granulocytes (1.4 - 6.5 /CUMM) 4.6 Absolute Lymphocytes (1.2 - 3.4 /CUMM) 0.8 L Absolute Monocytes (0.10 - 0.60 /CUMM) 0.2 Absolute Eosinophils (0.0 - 0.7 /CUMM) 0 Absolute Basophils (0.0 - 0.2 /CUMM) 0 Toxicology Random Vancomycin (ug/ml) 16.7
[2017-10-30 14:36] VITALS: BP 110/60
--- NOTE | 2017-10-30 15:32 | PN- Cardiology ---
Subjective Subjective: error, duplicate Objective Vital Signs and I&Os Vital Signs Date Time Temp Pulse Resp B/P B/P Pulse O2 O2 Flow FiO2 Mean Ox Delivery Rate 10/30 1436 98.2 71 20 110/60 93 Nasal 1.0L Cannula 10/31 799 Nasal 2.0L Cannula 10/30 621 97.5 72 18 108/64 92 Nasal 2.0L Cannula 10/30 0000 Nasal 2.0L Cannula 10/30 2007 96.3 80 20 100/60 97 Nasal 2.0L Cannula 10/30 1599 Nasal 2.0L Cannula 10/30 1599 98.2 77 22 96/54 96 Nasal 2.0L Cannula Intake & Output 10/30 0800 10/30 0000 10/29 0000 Intake Total 2450 513 74 4901 60 613.6 Output Total 2099 - 1500 -250 200 Balance 350 720 90 960 310 413.6 Intake, 1999 2100 Dialysate Intake, IV 20 40 613.6 Intake, Oral 450 100 50 360 60 Number 0 0 1 Bowel Movements Output, 2099 1500 -250 200 Dialysate Output, Urine 0 Patient 185 lb 177 lb 178 lb Weight Weight Bed scale Bed scale Bed scale Measurement Method Assessment/Plan Assessment/Plan error, duplicate Continue telemetry? Not applicable
--- NOTE | 2017-10-30 16:30 | PN- Cardiology ---
Subjective Subjective: Continues to improve. Still with no chest pain, dyspnea, or palpitations. Objective Vital Signs and I&Os Vital Signs Date Time Temp Pulse Resp B/P B/P Pulse O2 O2 Flow FiO2 Mean Ox Delivery Rate 10/30 1436 98.2 71 20 110/60 93 Nasal 1.0L Cannula 10/30 08 Nasal 2.0L Cannula 10/30 0622 97.5 72 18 108/64 92 Nasal 2.0L Cannula 10/30 0000 Nasal 2.0L Cannula 10/30 2007 96.3 80 20 100/60 97 Nasal 2.0L Cannula Intake & Output 10/30 1600 10/30 0800 10/30 0000 10/29 1600 10/29 0800 10/29 0000 Intake Total 2450 987 68 3717 60 613.6 Output Total 200 -600 1500 -250 200 Balance 2250 720 90 960 310 413.6 Intake, 2000 2100 Dialysate Intake, IV 20 40 613.6 Intake, Oral 450 100 50 360 60 Number 0 0 1 Bowel Movements Output, 200 -600 1500 -250 200 Dialysate Output, Urine 0 Patient 185 lb 177 lb 178 lb Weight Weight Bed scale Bed scale Bed scale Measurement Method Physical Exam: General: no apparent distress. Alert. Eyes: No obvious scleral icterus. HEENT: Right IJ noted Cardiovascular: Normal intensity S1/S2. Regular Respiratory: Lungs clear to auscultation bilaterally. Abdomen: Soft, nontender with no guarding or rebound tenderness. Musculoskeletal: No clubbing or cyanosis noted, no edema Skin: Warm Neurologic: No gross focal deficits noted. Current Medications: Current Medications Sig/Christie Start time Last Medication Dose Route Stop Time Status Admin Acyclovir 200 MG DAILY 10/26 1000 DC 10/30 PO 0829 Apixaban 2.5 MG BID 10/29 1158 DC 10/30 PO 0829 Calcium Carbonate 500 MG ONCE ONE 10/29 1645 DC 10/29 PO 10/29 1646 1713 Ceftriaxone Sodium 2,000 MG 2100 10/27 2100 AC 10/29 IV 2159 Heparin Sodium 2,000 UNIT PER PROTOCL PRN 10/30 0645 DC 10/30 (Porcine) SC 0644 Heparin Sodium 5,000 UNIT .STK-MED ONE 10/29 1818 DC (Porcine) IV 10/29 1819 Heparin Sodium 2,000 UNIT PER PROTOCL PRN 10/27 1015 DC 10/30 (Porcine) IP 0058 Hydrocortisone 50 MG Q8 10/30 1400 AC 10/30 Sodium Succinate IV 1402 Hydrocortisone 100 MG Q8 10/28 1400 DC 10/30 Sodium Succinate IV 0645 Lubiprostone 24 MCG BID 10/25 2200 AC 10/30 PO 0829 Magnesium Oxide 400 MG DAILY 10/25 1611 AC 10/30 PO 0829 Midodrine 7.5 MG Q8 10/29 1400 AC 10/30 PO 1353 Multivitamins 1 TAB DAILY 10/26 1000 AC 10/30 PO 0829 Oxycodone HCl 10 MG Q4-6 PRN PRN 10/27 2045 AC 10/30 PO 1123 Oxycodone HCl 20 MG 0900,2100 10/26 0900 AC 10/30 PO 0830 Polyethylene Glycol 17 GM DAILY 10/27 1645 AC 10/30 PO 0837 Prochlorperazine 10 MG Q6 PRN 10/25 1615 AC PO Senna/Docusate Sodium 1 TAB BID PRN 10/27 1645 AC 10/28 PO 1202 Sevelamer Carbonate 3,200 MG WM 10/25 1700 AC 10/30 PO 1209 Sevelamer Carbonate 1,600 MG TID PRN 10/25 1615 AC PO Results Last 48 Hrs of Labs/Mics: Laboratory Tests 10/30/17 0730: Anion Gap 15, Estimated GFR 6 L, Glucose 131 H, Calcium 7.8 L, Phosphorus 6.5 H, Magnesium 2.1, Total Bilirubin 0.3, AST 21, ALT 44, Albumin 2.3 L, CBC w Diff NO MAN DIFF REQ, RBC 2.60 L, MCV 96.4 H, MCH 32.2 H, MCHC 33.4, RDW 18.3 H, MPV 8.2, Gran % 92.3 H, Lymphocytes % 5.6 L, Monocytes % 2.0, Eosinophils % 0.1, Basophils % 0, Absolute Granulocytes 9.1 H, Absolute Lymphocytes 0.5 L, Absolute Monocytes 0.2, Absolute Eosinophils 0, Absolute Basophils 0 10/29/17 0640: Lymphocytes 8, % Normal PMNs 16, Fluid WBC 81 H, Fld Mesothelial Cells , Fld Total RBCs Counted 26 H 10/29/17 0435: Anion Gap 14, Estimated GFR 5 L, Glucose 137 H, Calcium 7.9 L, Phosphorus 6.5 H, Magnesium 2.1, Total Bilirubin 0.4, AST 21, ALT 44, Albumin 2.2 L, CBC w Diff NO MAN DIFF REQ, RBC 2.52 L, MCV 96.9 H, MCH 31.4 H, MCHC 32.4 L, RDW 19.3 H, MPV 8.0, Gran % 86.6 H, Lymphocytes % 9.4 L, Monocytes % 4.0, Eosinophils % 0, Basophils % 0, Absolute Granulocytes 6.7 H, Absolute Lymphocytes 0.7 L, Absolute Monocytes 0.3, Absolute Eosinophils 0, Absolute Basophils 0 10/28/172133: Troponin I 0.38 *H Recent Imaging Studies: off tele Assessment/Plan Assessment/Plan 1. Hypotension, improved 2. multiple myeloma 3. anemia requiring transfusion 4. paroxysmal atrial fibrillation on low-dose eliquis and with implantable loop recorder 5. end-stage renal disease on peritoneal dialysis 6. history of hypertension on outpatient low-dose coreg 7. Elevated troponin due to end-stage renal disease and hypotension 8. Septic shock/bacteremia Doing well. It appears his Eliquis was restarted over the weekend. If BP remains stable can resume outpatient low dose Coreg. Abx course per ID. MRI spine pending. Agustín Cosby MD [facility] Continue telemetry? Not applicable
--- NOTE | 2017-10-30 20:18 | MRI REPORT ---
EXAMINATION: MR CERVICAL SPINE WITHOUT CONTRAST MR THORACIC SPINE WITHOUT CONTRAST MR LUMBAR SPINE WITHOUT CONTRAST CLINICAL INFORMATION: 66-year-old man with worsening lytic lesions and acute on chronic back pain. COMPARISON: 08/26/2016 thoracic spine MRI TECHNIQUE: Multiplanar, multisequence MR imaging was performed through the cervical, thoracic, and lumbar spine without the use of intravenous contrast. FINDINGS: The exam is significantly limited due to prominent motion artifact and limited rapid scanning sequences. CERVICAL: There is stable grade 1 anterolisthesis of C4 on C5. Vertebral bodies are normal in height, bone marrow is normal in signal intensity on all sequences, and overall disc volumes are preserved. There is at least moderate central canal stenosis at C4-C5 that is unchanged. No definite focal cord signal abnormality is appreciated. THORACIC/LUMBAR: On the sagittal images, alignment of the thoracic and lumbar spine remains anatomic. Compression deformities are again noted at T4, as well as T6-L5. There has probably been further interval collapse of the T4 vertebral body and there appears to be a small amount of bone marrow edema within this vertebral body. Remaining vertebral bodies do not demonstrate any definite evidence of bone marrow edema. No severe canal stenosis is seen at any level. The foramina are difficult to assess. No focal cord signal abnormality is seen at any level. The conus terminates at the L1-L2 level. IMPRESSION: Significantly limited examination. There appears to have been some further interval collapse of the T4 vertebral body and there may be mild associated bone marrow edema as well.
[2017-10-30 22:21] VITALS: BP 118/80
[2017-10-31 06:00] VITALS: BP 114/72
--- NOTE | 2017-10-31 06:54 | PN- Hematology ---
Subjective Subjective: Generally feeling better, decreased pain 12 point review of systems nonspecific Objective Vital Signs and I&Os Vital Signs Date Time Temp Pulse Resp B/P B/P Pulse O2 O2 Flow FiO2 Mean Ox Delivery Rate 10/31 06 98.1 75 18 114/72 93 Nasal Cannula 10/31 0000 Nasal 2.0L Cannula 10/30 2221 97.7 83 20 118/80 92 Room Air 10/30 1600 91 Nasal 2.0L Cannula 10/30 1436 98.2 71 20 110/60 93 Nasal 1.0L Cannula 10/30 0800 Nasal 2.0L Cannula Intake & Output 10/31 0800 10/31 0000 10/30 1600 10/30 0800 10/30 0000 10/29 1600 Intake Total 2300 2450 468 91 9683 Output Total -100 1999 200 -600 1500 Balance 554 702 3347 720 90 960 Intake, 2100 2000 2100 Dialysate Intake, IV 20 40 Intake, Oral 200 450 100 50 360 Number 0 Bowel Movements Output, -100 1999 200 -600 1500 Dialysate Output, Urine 0 Patient 191 lb 185 lb 177 lb Weight Weight Bed scale Bed scale Bed scale Measurement Method Gen.: in NAD ENT: Sclera anicteric Chest: Normal respiratory effort, decreased Cor: RRR, no extra sounds Abdomen: Soft, bowel sounds present, no tenderness, no rebound Extremities: Without clubbing, cyanosis, or asymmetric edema Neurology: Alert and oriented 3, Current Medications: Current Medications Sig/Christie Start time Last Medication Dose Route Stop Time Status Admin Acyclovir 200 MG DAILY 10/26 1000 DC 10/30 PO 0829 Apixaban 2.5 MG BID 10/29 1158 DC 10/30 PO 0829 Ceftriaxone Sodium 2,000 MG 10/27 2100 AC 10/30 IV 2114 Heparin Sodium 2,000 UNIT PER PROTOCL PRN 10/30 0645 DC 10/30 (Porcine) SC 0644 Hydrocortisone 50 MG Q8 10/30 1400 AC 10/31 Sodium Succinate IV 0611 Hydrocortisone 100 MG Q8 10/28 1400 DC 10/30 Sodium Succinate IV 0645 Lubiprostone 24 MCG BID 10/25 2200 AC 10/30 PO 2114 Magnesium Oxide 400 MG DAILY 10/25 1611 AC 10/30 PO 0829 Midodrine 7.5 MG Q8 10/29 1400 AC 10/31 PO 0610 Multivitamins 1 TAB DAILY 04/12 1000 AC 10/30 PO 0829 Oxycodone HCl 10 MG Q4-6 PRN PRN 10/27 2045 AC 10/31 PO 0615 Oxycodone HCl 20 MG 0900,2100 10/26 0900 10/30 PO 2115 Polyethylene Glycol 17 GM DAILY 10/27 164 10/30 PO 0837 Prochlorperazine 10 MG Q6 PRN 10/25 1615 AC PO Senna/Docusate Sodium 1 TAB BID PRN 10/27 164 AC 10/30 PO 2114 Sevelamer Carbonate 3,200 MG WM 10/25 1700 AC 10/30 PO 1209 Sevelamer Carbonate 1,600 MG TID PRN 10/25 1615 AC PO Results Last 24 Hours of Lab Results: Laboratory Tests 10/30 0730 Chemistry Sodium (137 - 145 mmol/L) 136 L Potassium (3.5 - 5.1 mmol/L) 4.0 Chloride (98 - 107 mmol/L) 95 L Carbon Dioxide (22 - 30 mmol/L) 27 Anion Gap (5 - 16) 15 BUN (9 - 20 mg/dL) 92 H Creatinine (0.7 - 1.2 mg/dL) 9.5 *H Estimated GFR (>60 ml/min) 6 L Glucose (65 - 99 mg/dL) 131 H Calcium (8.4 - 10.2 mg/dL) 7.8 L Phosphorus (2.5 - 4.5 mg/dL) 6.5 H Magnesium (1.6 - 2.3 mg/dL) 2.1 Total Bilirubin (0.2 - 1.3 mg/dL) 0.3 AST (17 - 59 U/L) 21 ALT (21 - 72 U/L) 44 Albumin (3.5 - 5.0 g/dL) 2.3 L Hematology CBC w Diff NO MAN DIFF REQ WBC (4.8 - 10.8 /CUMM) 9.9 RBC (4.70 - 6.10 /CUMM) 2.60 L Hgb (14.0 - 18.0 G/DL) 8.4 L Hct (42 - 52 %) 25.0 L MCV (80.0 - 94.0 FL) 96.4 H MCH (27.0 - 31.0 PG) 32.2 H MCHC (33.0 - 37.0 G/DL) 33.4 RDW (11.5 - 14.5 %) 18.3 H Plt Count (130 - 400 /CUMM) 87 L MPV (7.4 - 10.4 FL) 8.2 Gran % (42.2 - 75.2 %) 92.3 H Lymphocytes % (20.5 - 51.1 %) 5.6 L Monocytes % (1.7 - 9.3 %) 2.0 Eosinophils % (0 - 5 %) 0.1 Basophils % (0.0 - 2.0 %) 0 Absolute Granulocytes (1.4 - 6.5 /CUMM) 9.1 H Absolute Lymphocytes (1.2 - 3.4 /CUMM) 0.5 L Absolute Monocytes (0.10 - 0.60 /CUMM) 0.2 Absolute Eosinophils (0.0 - 0.7 /CUMM) 0 Absolute Basophils (0.0 - 0.2 /CUMM) 0 Recent Imaging Studies: MRI-total spine-no contrast: Increased loss of height at T4, no other acute changes Assessment/Plan Hematology Assessment/Recommendations: 1. Sepsis-antibiotics as per Dr. Bharath Prado 2. Multiple myeloma-clinically stable Hopefully patient will be discharged soon with follow-up in my office
--- NOTE | 2017-10-31 07:17 | PN- Housestaff ---
Amelia Son 10/31/17 0716: Subjective Follow-up For: - Septic shock msot likely 2/2 Strep Pneumo - PNA vs meningitis - ESRD on PD - Acute on chronic anemia 2/2 ESRD, and MM s/p 2 units of PRBC x2 - Multiple myleoma on chemo - currently on hold - Acuet on chronic back pain - Type II OK - Hx of chronic afib on Eliquis - Thrombocytopenia Complaints: no complaints Tele-Events Since Last Visit: Not on monitor Subjective: Patient seen and examined at [facility]. He seems more alert today than yesterday. Of note, he got the MRI yesterday. Plan for placement of a central venous catheter for intermediate antibiotics. Awaiting IR to get back regarding when it can be performed. Eliquis held yesterday evening nad continues to remian on hold. Patient does endorse back pain, but sttaes it is better than yesterday. Review of Systems Constitutional: Denies: chills, fever. EENTM: Denies: visual changes. Cardiovascular: Denies: chest pain, orthopena, palpitations, peripheral edema. Respiratory: Denies: short of breath. Gastrointestinal: Denies: abdominal pain, constipation, diarrhea, nausea, vomiting. Genitourinary: Reports: no symptoms. Musculoskeletal: Reports: back pain (improved). Neurological/Psychological: Denies: headache, numbness, tingling, tremors. Objective Last 24 Hrs of Vital Signs/I&O Vital Signs Date Time Temp Pulse Resp B/P B/P Pulse O2 O2 Flow FiO2 Mean Ox Delivery Rate 10/31 0600 98.1 75 18 114/72 93 Nasal Cannula 10/31 0000 Nasal 2.0L Cannula 10/30 2221 97.7 83 20 118/80 92 Room Air 10/30 1600 91 Nasal 2.0L Cannula 10/30 1436 98.2 71 20 110/60 93 Nasal 1.0L Cannula 10/30 0800 Nasal 2.0L Cannula Intake & Output 10/31 0800 10/31 0000 10/30 1600 Intake Total 2300 2450 Output Total -100 2000 200 Balance 881 624 1323 Intake, 2100 2000 Dialysate Intake, Oral 200 450 Output, -100 2000 200 Dialysate Patient 191 lb 185 lb Weight Weight Bed scale Bed scale Measurement Method Physical Exam General Appearance: Alert, Oriented X3, Cooperative, No Acute Distress Skin Temp/Moisture Exam: Warm/Dry HEENT: Atraumatic, PERRLA, EOMI, Mucous Membr. moist/pink Neck: Supple, No JVD, No thryomegaly, No LAD Cardiovascular: Normal S1, Normal S2, No Murmurs, irregularly irregular Lungs: Clear to Auscultation, Normal Air Movement Abdomen: Normal Bowel Sounds, Soft, No Tenderness Neurological: Normal Speech, Strength at 5/5 X4 Ext, Normal Tone, Sensation Intact, Cranial Nerves 3-12 NL, Reflexes 2+ Extremities: No Edema, No Tenderness/Swelling Current Medications: Current Medications Sig/Christie Start time Last Medication Dose Route Stop Time Status Admin Acyclovir 200 MG DAILY 10/26 1000 DC 10/30 PO 0829 Apixaban 2.5 MG BID 10/29 1158 DC 10/30 PO 0829 Ceftriaxone Sodium 2,000 MG 2100 10/27 2100 AC 10/30 IV 2114 Heparin Sodium 2,000 UNIT PER PROTOCL PRN 10/30 0645 DC 10/30 (Porcine) SC 0644 Hydrocortisone 50 MG Q8 10/30 1400 AC 10/31 Sodium Succinate IV 0611 Hydrocortisone 100 MG Q8 10/28 1400 DC 10/30 Sodium Succinate IV 0645 Lubiprostone 24 MCG BID 10/25 2200 AC 10/30 PO 2114 Magnesium Oxide 400 MG DAILY 10/25 1611 AC 10/30 PO 0829 Midodrine 7.5 MG Q8 10/29 1400 AC 10/31 PO 0610 Multivitamins 1 TAB DAILY 10/26 1000 AC 10/30 PO 0829 Oxycodone HCl 10 MG Q4-6 PRN PRN 10/27 2045 AC 10/31 PO 0615 Oxycodone HCl 20 MG 0900,2100 10/26 0900 AC 10/30 PO 2115 Polyethylene Glycol 17 GM DAILY 10/27 1645 AC 10/30 PO 0837 Prochlorperazine 10 MG Q6 PRN 10/25 1615 AC PO Senna/Docusate Sodium 1 TAB BID PRN 10/27 1645 AC 10/30 PO 2114 Sevelamer Carbonate 3,200 MG WM 10/25 1700 AC 10/30 PO 1209 Sevelamer Carbonate 1,600 MG TID PRN 10/25 1615 AC PO Last 24 Hrs of Lab/Tyler Results Last 24 Hrs of Labs/Mics: Laboratory Tests 10/30/17 0730: Anion Gap 15, Estimated GFR 6 L, Glucose 131 H, Calcium 7.8 L, Phosphorus 6.5 H, Magnesium 2.1, Total Bilirubin 0.3, AST 21, ALT 44, Albumin 2.3 L, CBC w Diff NO MAN DIFF REQ, RBC 2.60 L, MCV 96.4 H, MCH 32.2 H, MCHC 33.4, RDW 18.3 H, MPV 8.2, Gran % 92.3 H, Lymphocytes % 5.6 L, Monocytes % 2.0, Eosinophils % 0.1, Basophils % 0, Absolute Granulocytes 9.1 H, Absolute Lymphocytes 0.5 L, Absolute Monocytes 0.2, Absolute Eosinophils 0, Absolute Basophils 0, Fluid WBC Cancelled, Fld Total RBCs Counted Cancelled Orders Radiology Findings: SERVICE DATE: 10/30/17- EXAM TYPE: MRI - MRI-CERVICAL SPINE; MRI-LUMBAR SPINE; MRI-THORACIC SPINE FINDINGS: The exam is significantly limited due to prominent motion artifact and limited rapid scanning sequences. CERVICAL: There is stable grade 1 anterolisthesis of C4 on C5. Vertebral bodies are normal in height, bone marrow is normal in signal intensity on all sequences, and overall disc volumes are preserved. There is at least moderate central canal stenosis at C4-C5 that is unchanged. No definite focal cord signal abnormality is appreciated. THORACIC/LUMBAR: On the sagittal images, alignment of the thoracic and lumbar spine remains anatomic. Compression deformities are again noted at T4, as well as T6-L5. There has probably been further interval collapse of the T4 vertebral body and there appears to be a small amount of bone marrow edema within this vertebral body. Remaining vertebral bodies do not demonstrate any definite evidence of bone marrow edema. No severe canal stenosis is seen at any level. The foramina are difficult to assess. No focal cord signal abnormality is seen at any level. The conus terminates at the L1-L2 level. IMPRESSION: Significantly limited examination. There appears to have been some further interval collapse of the T4 vertebral body and there may be mild associated bone marrow edema as well. Assessment/Plan Assessment: Mr Grant is a 66-year-old gentleman with history of multiple myeloma ( cyclophosphamide, bortezomib, dexamethasone + E Po-last chemo 10/18/2017), previously on hemodialysis, end-stage renal disease and currently on peritoneal dialysis came to the hospital with a chief concern of confusion, hypotension. He was initially admitted to telemetry floor and transferred to ICU for hypotension requiring central line and vasopressors for sepsis thought to be 2/2 meningitis, and or PNA, with blood cultures showing growth of Strep Pneumo. He was started on Vanc and Ceftriaxone and subsequently narrowed down to Ceftriaxone after sensitivities for Strep Pneumo came back being sensitive to penicillin. He was then trasnferred to [facility] for further management. Assessment and Plan: # Septic shock sec to strep pneumonia - Patient was transferred from telemetry to ICU for persistent hypotension, fever, gram positive cocci bacteremia. Patient was found to have fever, hypotension, headache, neck stiffness with gram-positive bacteremia. Possible differentials at that time were meningitis versus pneumonia versus peritoneal fluid infection given cloudy peritoneal fluid. Patient blood cultures are positive for strep pneumonia sensitive . CAT scan chest was done which showed Multi sublobar areas of consolidation consistent with pneumonia and/or atelectasis. These are in a similar distribution to that seen in 2017 but are worse. New area of groundglass opacity apex right upper lobe. Initially patient was started on ceftriaxone 2 g daily and vancomycin 1 g daily to cover strep pneumonia, meningitis. Later blood culture turned out strep pneumonia, patient was continued on ceftriaxone 2 g daily for strep pneumonia. Vancomycin was discontinued. Patient remained afebrile with normal WBC count. Patient was also continued on acyclovir prophylactic dose. - He will require 2g of Cetraixone for possible meningitis for a total foR 14 days (through 11/09/17). ID recs appreciated. - Will speak with IR regrding placement of Proline. nephro not enthusiastic about administering Abx through the Tenckhoff catheter. # Hypotension - Stable. Patient was found to have persistent hypotension with SBP varying between 60-70. He was transferred from telemetry to ICU for central line placement and hypotension management. Right IJ central line was placed, started on levophed. Later levophed was titrated off once his SBP was 90. Off note his baseline blood pressure varies between 80-90. Triple lumen catheter was removed on 10/27 at bedside with the no complications. - Patient was also started on midodrine 5 mg 3 times daily for hypotension,as well as hydrocortisone 100 mg every 8 hours, which was tapered to 50 mg every 8 hours yesterdya with further plans to taper tmrw, since will resume hishome dose fo Carvedilol today # Acute on chronic anemia s/p tx with 2 PRBC thrombocytopenia - H&H stable. - Patient received 2 units of PRBCs. - Goal H&H > 8/25 - Of note her stools were quiac negative. - Continue to monitor hemoglobin and platelet count # End-stage renal disease on peritoneal dialysis Peritoneal dialysis as per baker recommendations. D/C Heparin 2000 units per dialysis bag, as per baker. Monitor for electrolyte shifts. D/C peritoneal fluid cell count and cultures monitoring # Pain Management/ multiple myeloma (cyclophosphamide, bortezomib, dexamethasone + E Po-last chemo 10/18/2017) Continue pain medications oxycodone and OxyContin at home dose for back pain. MRI of total spine was done yesterday that showed interval collapse of the T4 vertebral body and there may be mild associated bone marrow edema as well. Paroxysmal atrial fibrillation - Currently rate controlled. - Resume Co-reg. - Meanwhile continue to hold Eliquis with plan to place a prline tomorrow or # Type II OK - Elevated troponin and no EKG changes possibly from demand supply mismatch and hypotension DVT prophylaxis On alps given thrombocytopenia Diet-reg diet Patient's family refused renal dialysis diet Code Status Full Code Problem List: 1. History of renal failure 2. History of multiple myeloma Pain Ratin Pain Location: back Pain Goal: Remain pain free Pain Plan: roxicodone and oxycodone Tomorrow's Labs & Rationales: CBC- Platelet count INR ELLAP Isidro Echeverria MD 10/31/17 1336: Attending Review Statement Attending Statement Attending MD Statement: examined this patient, discuss w/resident/PA/CENTRIFUGE SEPARATOR OPERATOR, agreed w/resident/PA/CENTRIFUGE SEPARATOR OPERATOR, discussed with family, reviewed EMR data (avail), discussed with nursing, discussed with case mgmt, reviewed images, amended to note Attending Assessment/Plan: The patient was seen and discussed with house staff, nursing, case management, family () and nephrology. Considering tunnel cath for completion of IV antibiotics as cannot use midline or PICC. Platelet count low. May also consider standard IV for home. Appreciate ID and Nephrology input.
[2017-10-31 09:28] LABS: ABSOLUTE BASOPHIL COUNT 0 /CUMM (0.0-0.2); ABSOLUTE LYMPH COUNT 0.7 /CUMM (1.2-3.4); BASOPHIL % 0 % (0.0-2.0); HEMATOCRIT 25.5 % (42-52)
[2017-10-31 09:54] LABS: ABSOLUTE EOSINOPHIL COUNT 0 /CUMM (0.0-0.7); ABSOLUTE GRANULOCYTE CT 8.9 /CUMM (1.4-6.5); ABSOLUTE MONOCYTE COUNT 0.2 /CUMM (0.10-0.60); EOSINOPHIL % 0.1 % (0-5); MEAN CORPUSCULAR HGB 32.4 PG (27.0-31.0); MEAN CORPUSCULAR HGB CONC 33.7 G/DL (33.0-37.0); MEAN CORPUSCULAR VOLUME 96.1 FL (80.0-94.0); MEAN PLATELET VOLUME 7.9 FL (7.4-10.4); RBC DISTRIBUTION WIDTH 17.9 % (11.5-14.5); RED BLOOD CELL CT 2.65 /CUMM (4.70-6.10); WHITE BLOOD CELL COUNT 9.8 /CUMM (4.8-10.8)
[2017-10-31 10:24] LABS: GRANULOCYTE % 90.5 % (42.2-75.2)
--- NOTE | 2017-10-31 10:47 | PN- Cardiology ---
Subjective Subjective: Patient feels well. He describes mild shortness of breath but it has improved Review of Systems: Eyes no blurred or double vision Ears no deafness or ringing Nose and throat no recurrent sinusitis Lungs per history of present illness Heart per history of present illness Abdomen no nausea vomiting Musculoskeletal occasional muscle and joint pains Psych no anxiety or depression Neuro without recurrent headache or seizures Endocrine no heat or cold intolerance Objective Vital Signs and I&Os Vital Signs Date Time Temp Pulse Resp B/P B/P Pulse O2 O2 Flow FiO2 Mean Ox Delivery Rate 10/31 0600 98.1 75 18 114/72 93 Nasal Cannula 10/31 0000 Nasal 2.0L Cannula 10/30 2221 97.7 83 20 118/80 92 Room Air 10/30 1600 91 Nasal 2.0L Cannula 10/30 1436 98.2 71 20 110/60 93 Nasal 1.0L Cannula Intake & Output 10/31 1600 10/31 0800 10/31 0000 10/30 1600 10/30 0800 10/30 0000 Intake Total 70 2300 2450 120 90 Output Total -100 1999 200 -600 Balance 216 413 9677 720 90 Intake, 2100 2000 Dialysate Intake, IV 20 20 40 Intake, Oral 50 200 450 100 50 Output, -100 1999 200 -600 Dialysate Patient 191 lb 185 lb 177 lb Weight Weight Bed scale Bed scale Bed scale Measurement Method Physical Exam: Patient is a well-developed well-nourished male appearing in no acute distress HEENT is unremarkable Neck is supple there is no JVD Lungs few scattered rhonchi bilaterally Heart regular rhythm S1 and S2 are normal no murmurs gallops or rubs Abdomen bowel sounds positive Extremities without edema Current Medications: Current Medications Sig/Christie Start time Last Medication Dose Route Stop Time Status Admin Apixaban 2.5 MG BID 10/29 1158 DC 10/30 PO 0829 Ceftriaxone Sodium 2,000 MG 2100 10/27 2100 AC 10/30 IV 2114 Heparin Sodium 5,000 UNIT Q8 10/31 1400 AC (Porcine) SC Heparin Sodium 2,000 UNIT PER PROTOCL PRN 10/30 0645 DC 10/30 (Porcine) SC 0644 Hydrocortisone 50 MG Q8 10/30 1400 AC 10/31 Sodium Succinate IV 0611 Lubiprostone 24 MCG BID 10/25 2200 AC 10/31 PO 0847 Magnesium Oxide 400 MG DAILY 10/25 1611 AC 10/31 PO 0847 Midodrine 7.5 MG Q8 10/29 1400 AC 10/31 PO 0610 Multivitamins 1 TAB DAILY 10/26 1000 AC 10/31 PO 0847 Oxycodone HCl 10 MG Q4-6 PRN PRN 10/27 2044 AC 10/31 PO 0615 Oxycodone HCl 20 MG 0900,2100 10/26 0900 AC 10/31 PO 0847 Polyethylene Glycol 17 GM DAILY 10/27 1645 AC 10/31 PO 0847 Prochlorperazine 10 MG Q6 PRN 10/25 1615 AC PO Senna/Docusate Sodium 1 TAB BID PRN 10/27 1645 AC 10/30 PO 2114 Sevelamer Carbonate 3,200 MG WM 10/25 1700 AC 10/31 PO 0847 Sevelamer Carbonate 1,600 MG TID PRN 10/25 1615 AC PO Results Last 48 Hrs of Labs/Mics: Laboratory Tests 10/31/17 0630: Anion Gap 13, Estimated GFR 5 L, BUN/Creatinine Ratio 10.0, CBC w Diff NO MAN DIFF REQ, RBC 2.65 L, MCV 96.1 H, MCH 32.4 H, MCHC 33.7, RDW 17.9 H, MPV 7.9 , Gran % 90.5 H, Lymphocytes % 7.0 L, Monocytes % 2.4, Eosinophils % 0.1, Basophils % 0, Absolute Granulocytes 8.9 H, Absolute Lymphocytes 0.7 L, Absolute Monocytes 0.2, Absolute Eosinophils 0, Absolute Basophils 0 10/30/17 0730: Anion Gap 15, Estimated GFR 6 L, Glucose 131 H, Calcium 7.8 L, Phosphorus 6.5 H, Magnesium 2.1, Total Bilirubin 0.3, AST 21, ALT 44, Albumin 2.3 L, CBC w Diff NO MAN DIFF REQ, RBC 2.60 L, MCV 96.4 H, MCH 32.2 H, MCHC 33.4, RDW 18.3 H, MPV 8.2, Gran % 92.3 H, Lymphocytes % 5.6 L, Monocytes % 2.0, Eosinophils % 0.1, Basophils % 0, Absolute Granulocytes 9.1 H, Absolute Lymphocytes 0.5 L, Absolute Monocytes 0.2, Absolute Eosinophils 0, Absolute Basophils 0, Fluid WBC Cancelled, Fld Total RBCs Counted Cancelled Recent Imaging Studies: MRI IMPRESSION: Significantly limited examination. There appears to have been some further interval collapse of the T4 vertebral body and there may be mild associated bone marrow edema as well. Assessment/Plan Assessment/Plan 1. Hypotension, improved 2. Multiple myeloma 3. Anemia requiring transfusion 4. Paroxysmal atrial fibrillation on low-dose eliquis and with implantable loop recorder 5. End-stage renal disease on peritoneal dialysis 6. History of hypertension on outpatient low-dose coreg 7. Elevated troponin due to end-stage renal disease and hypotension 8. Septic shock/bacteremia Recommendations 1. Continue Eliquis for stroke prevention etc. 2. Blood pressure is now stable would resume outpatient carvedilol 3.125 mg twice a day 3. Continue antibiotics Continue telemetry? No
--- NOTE | 2017-10-31 10:56 | PN- Nephrology ---
Assessment/Plan Nephrology Assessment: Still with some volume overload. Suggestion: Continue on all 2.5% exchanges. Subjective Subjective: Patient feeling well, not SOB. Objective Vital Signs and I&Os Vital Signs Date Time Temp Pulse Resp B/P B/P Pulse O2 O2 Flow FiO2 Mean Ox Delivery Rate 10/31 0600 98.1 75 18 114/72 93 Nasal Cannula 10/31 0000 Nasal 2.0L Cannula 10/30 2221 97.7 83 20 118/80 92 Room Air 10/30 1600 91 Nasal 2.0L Cannula 10/30 1436 98.2 71 20 110/60 93 Nasal 1.0L Cannula Intake & Output 10/31 1600 10/31 0400 10/30 1600 10/30 0400 10/29 1600 10/29 0400 Intake Total 70 2300 2570 90 2520 613.6 Output Total 1900 100 -500 1250 200 Balance 70 400 2470 590 1270 413.6 Intake, 2100 2000 2100 Dialysate Intake, IV 20 20 40 613.6 Intake, Oral 50 200 550 50 420 Number 0 1 Bowel Movements Output, 1900 100 -500 1250 200 Dialysate Output, Urine 0 Patient 191 lb 185 lb 178 lb Weight Weight Bed scale Bed scale Bed scale Measurement Method Physical Exam: NAD VS as above Lungs:clear CV: no rub Abd: nontender Exts: 1+ dependent edema Neuro: A& Current Medications: Current Medications Sig/Christie Start time Last Medication Dose Route Stop Time Status Admin Apixaban 2.5 MG BID 10/29 1158 DC 10/30 PO 0829 Carvedilol 3.125 MG BID 10/31 1055 UNVr PO Ceftriaxone Sodium 2,000 MG 10/27 2100 AC 10/30 IV 2114 Heparin Sodium 5,000 UNIT Q8 10/31 1400 CAN (Porcine) SC Heparin Sodium 2,000 UNIT PER PROTOCL PRN 10/30 0645 DC 10/30 (Porcine) SC 0644 Hydrocortisone 50 MG Q8 10/30 1400 AC 10/31 Sodium Succinate IV 0611 Lubiprostone 24 MCG BID 10/25 2200 AC 10/31 PO 0847 Magnesium Oxide 400 MG DAILY 10/25 1611 AC 10/31 PO 0847 Midodrine 7.5 MG Q8 10/29 1400 AC 10/31 PO 0610 Multivitamins 1 TAB DAILY 10/26 1000 AC 10/31 PO 0847 Oxycodone HCl 10 MG Q4-6 PRN PRN 10/27 2044 AC 10/31 PO 0615 Oxycodone HCl 20 MG 0900,2100 10/26 0900 AC 10/31 PO 0847 Polyethylene Glycol 17 GM DAILY 10/27 164 10/31 PO 0847 Prochlorperazine 10 MG Q6 PRN 10/25 1615 AC PO Senna/Docusate Sodium 1 TAB BID PRN 10/27 164 AC 10/30 PO 2114 Sevelamer Carbonate 3,200 MG WM 10/25 1700 AC 10/31 PO 0847 Sevelamer Carbonate 1,600 MG TID PRN 10/25 1615 AC PO Results Pertinent Lab Results: Laboratory Tests 10/31 10/30 0630 0730 Chemistry Sodium (137 - 145 mmol/L) 135 L 136 L Potassium (3.5 - 5.1 mmol/L) 3.8 4.0 Chloride (98 - 107 mmol/L) 96 L 95 L Carbon Dioxide (22 - 30 mmol/L) 27 27 Anion Gap (5 - 16) 13 15 BUN (9 - 20 mg/dL) 97 H 92 H Creatinine (0.7 - 1.2 mg/dL) 9.7 *H 9.5 *H Estimated GFR (>60 ml/min) 5 L 6 L BUN/Creatinine Ratio (7 - 25 %) 10.0 Glucose (65 - 99 mg/dL) 131 H Calcium (8.4 - 10.2 mg/dL) 7.8 L Phosphorus (2.5 - 4.5 mg/dL) 6.5 H Magnesium (1.6 - 2.3 mg/dL) 2.1 Total Bilirubin (0.2 - 1.3 mg/dL) 0.3 AST (17 - 59 U/L) 21 ALT (21 - 72 U/L) 44 Albumin (3.5 - 5.0 g/dL) 2.3 L Hematology CBC w Diff NO MAN DIFF REQ NO MAN DIFF REQ WBC (4.8 - 10.8 /CUMM) 9.8 9.9 RBC (4.70 - 6.10 /CUMM) 2.65 L 2.60 L Hgb (14.0 - 18.0 G/DL) 8.6 L 8.4 L Hct (42 - 52 %) 25.5 L 25.0 L MCV (80.0 - 94.0 FL) 96.1 H 96.4 H MCH (27.0 - 31.0 PG) 32.4 H 32.2 H MCHC (33.0 - 37.0 G/DL) 33.7 33.4 RDW (11.5 - 14.5 %) 17.9 H 18.3 H Plt Count (130 - 400 /CUMM) 42 L 87 L MPV (7.4 - 10.4 FL) 7.9 8.2 Gran % (42.2 - 75.2 %) 90.5 H 92.3 H Lymphocytes % (20.5 - 51.1 %) 7.0 L 5.6 L Monocytes % (1.7 - 9.3 %) 2.4 2.0 Eosinophils % (0 - 5 %) 0.1 0.1 Basophils % (0.0 - 2.0 %) 0 0 Absolute Granulocytes (1.4 - 6.5 /CUMM) 8.9 H 9.1 H Absolute Lymphocytes (1.2 - 3.4 /CUMM) 0.7 L 0.5 L Absolute Monocytes (0.10 - 0.60 /CUMM) 0.2 0.2 Absolute Eosinophils (0.0 - 0.7 /CUMM) 0 0 Absolute Basophils (0.0 - 0.2 /CUMM) 0 0 Other Body Source Fluid WBC Cancelled Fld Total RBCs Counted Cancelled 10/29 10/29 10/28 8627 1309 2134 Chemistry Sodium (137 - 145 mmol/L) 135 L Potassium (3.5 - 5.1 mmol/L) 3.9 Chloride (98 - 107 mmol/L) 96 L Carbon Dioxide (22 - 30 mmol/L) 26 Anion Gap (5 - 16) 14 BUN (9 - 20 mg/dL) 79 H Creatinine (0.7 - 1.2 mg/dL) 9.8 *H Estimated GFR (>60 ml/min) 5 L Glucose (65 - 99 mg/dL) 137 H Calcium (8.4 - 10.2 mg/dL) 7.9 L Phosphorus (2.5 - 4.5 mg/dL) 6.5 H Magnesium (1.6 - 2.3 mg/dL) 2.1 Total Bilirubin (0.2 - 1.3 mg/dL) 0.4 AST (17 - 59 U/L) 21 ALT (21 - 72 U/L) 44 Troponin I (<0.11 ng/ml) 0.38 *H Albumin (3.5 - 5.0 g/dL) 2.2 L Hematology CBC w Diff NO MAN DIFF REQ WBC (4.8 - 10.8 /CUMM) 7.8 RBC (4.70 - 6.10 /CUMM) 2.52 L Hgb (14.0 - 18.0 G/DL) 7.9 L Hct (42 - 52 %) 24.4 L MCV (80.0 - 94.0 FL) 96.9 H MCH (27.0 - 31.0 PG) 31.4 H MCHC (33.0 - 37.0 G/DL) 32.4 L RDW (11.5 - 14.5 %) 19.3 H Plt Count (130 - 400 /CUMM) 88 L MPV (7.4 - 10.4 FL) 8.0 Gran % (42.2 - 75.2 %) 86.6 H Lymphocytes % (20.5 - 51.1 %) 9.4 L Monocytes % (1.7 - 9.3 %) 4.0 Eosinophils % (0 - 5 %) 0 Basophils % (0.0 - 2.0 %) 0 Absolute Granulocytes (1.4 - 6.5 /CUMM) 6.7 H Absolute Lymphocytes (1.2 - 3.4 /CUMM) 0.7 L Lymphocytes (%) 8 Absolute Monocytes (0.10 - 0.60 /CUMM) 0.3 Absolute Eosinophils (0.0 - 0.7 /CUMM) 0 Absolute Basophils (0.0 - 0.2 /CUMM) 0 % Normal PMNs (%) 16 Other Body Source Fluid WBC (0 - 5 /CUMM) 81 H Fld Mesothelial Cells (%) Fld Total RBCs Counted (0 /CUMM) 26 H
[2017-10-31 12:18] LABS: ABSOLUTE BASOPHIL COUNT 0 /CUMM (0.0-0.2); ABSOLUTE EOSINOPHIL COUNT 0 /CUMM (0.0-0.7); ABSOLUTE LYMPH COUNT 0.6 /CUMM (1.2-3.4); EOSINOPHIL % 0 % (0-5)
[2017-10-31 12:23] LABS: ABSOLUTE GRANULOCYTE CT 9.9 /CUMM (1.4-6.5); ABSOLUTE MONOCYTE COUNT 0.2 /CUMM (0.10-0.60); BASOPHIL % 0.2 % (0.0-2.0); HEMATOCRIT 30.1 % (42-52); MEAN CORPUSCULAR HGB 32.3 PG (27.0-31.0); MEAN CORPUSCULAR HGB CONC 33.5 G/DL (33.0-37.0); MEAN CORPUSCULAR VOLUME 96.4 FL (80.0-94.0); MEAN PLATELET VOLUME 9.2 FL (7.4-10.4); RBC DISTRIBUTION WIDTH 18.1 % (11.5-14.5); RED BLOOD CELL CT 3.12 /CUMM (4.70-6.10); WHITE BLOOD CELL COUNT 10.8 /CUMM (4.8-10.8)
[2017-10-31 12:27] LABS: GRANULOCYTE % 92.2 % (42.2-75.2); PLATELET COUNT 36 /CUMM (130-400)
[2017-10-31 13:00] LABS: PT 10.4 SEC (9.4-12.5)
[2017-10-31 13:42] LABS: PTT 26 SEC (25-37)
[2017-10-31 14:20] VITALS: BP 126/60
--- NOTE | 2017-10-31 14:40 | PN- Infect Dx ---
Subjective Subjective: Afebrile on steroids. He still complains of neck pain but feels overall improved Objective Last 24 Hrs of Vital Signs/I&O Vital Signs Date Time Temp Pulse Resp B/P B/P Pulse O2 O2 Flow FiO2 Mean Ox Delivery Rate 10/31 1420 97.6 78 18 126/60 96 Room Air 10/31 1203 80 110/90 10/31 0800 Nasal 2.0L Cannula 10/31 0600 98.1 75 18 114/72 93 Nasal Cannula 10/31 0000 Nasal 2.0L Cannula 10/30 2221 97.7 83 20 118/80 92 Room Air 10/30 1600 91 Nasal 2.0L Cannula 10/30 1436 98.2 71 20 110/60 93 Nasal 1.0L Cannula Intake & Output 10/31 1600 10/31 0800 10/31 0000 Intake Total 70 2300 Output Total 100 2000 Balance -30 300 Intake, 2100 Dialysate Intake, IV 20 Intake, Oral 50 200 Output, 100 2000 Dialysate Patient 191 lb Weight Weight Bed scale Measurement Method Physical Exam Other Physical Findings: He appears comfortable, sitting up in a chair, in no acute distress Neck tender over the posterior cervical area, with some resistance to flexion Lungs rhonchi at the right base Heart regular rhythm with no murmur Abdomen is soft, nontender with positive bowel sounds Extremities no cyanosis, clubbing or edema Results Last 24 Hours of Lab Results: Laboratory Tests 10/31 10/31 1137 0630 Chemistry Sodium (137 - 145 mmol/L) 135 L Potassium (3.5 - 5.1 mmol/L) 3.8 Chloride (98 - 107 mmol/L) 96 L Carbon Dioxide (22 - 30 mmol/L) 27 Anion Gap (5 - 16) 13 BUN (9 - 20 mg/dL) 97 H Creatinine (0.7 - 1.2 mg/dL) 9.7 *H Estimated GFR (>60 ml/min) 5 L BUN/Creatinine Ratio (7 - 25 %) 10.0 Coagulation PT (9.4 - 12.5 SEC) 10.4 INR (0.90 - 1.17) 0.95 APTT (25 - 37 SEC) 26 Fibrinogen Activity (200 - 393 MG/DL) 701 H D-Dimer High Sensitivty (0 - 243 ng/ml) 2115 H Hematology CBC w Diff NO MAN DIFF REQ NO MAN DIFF REQ WBC (4.8 - 10.8 /CUMM) 10.8 9.8 RBC (4.70 - 6.10 /CUMM) 3.12 L 2.65 L Hgb (14.0 - 18.0 G/DL) 10.1 L 8.6 L Hct (42 - 52 %) 30.1 L 25.5 L MCV (80.0 - 94.0 FL) 96.4 H 96.1 H MCH (27.0 - 31.0 PG) 32.3 H 32.4 H MCHC (33.0 - 37.0 G/DL) 33.5 33.7 RDW (11.5 - 14.5 %) 18.1 H 17.9 H Plt Count (130 - 400 /CUMM) 36 L 42 L MPV (7.4 - 10.4 FL) 9.2 7.9 Gran % (42.2 - 75.2 %) 92.2 H 90.5 H Lymphocytes % (20.5 - 51.1 %) 5.7 L 7.0 L Monocytes % (1.7 - 9.3 %) 1.9 2.4 Eosinophils % (0 - 5 %) 0 0.1 Basophils % (0.0 - 2.0 %) 0.2 0 Absolute Granulocytes (1.4 - 6.5 /CUMM) 9.9 H 8.9 H Absolute Lymphocytes (1.2 - 3.4 /CUMM) 0.6 L 0.7 L Absolute Monocytes (0.10 - 0.60 /CUMM) 0.2 0.2 Absolute Eosinophils (0.0 - 0.7 /CUMM) 0 0 Absolute Basophils (0.0 - 0.2 /CUMM) 0 0 Last 24 Hours of Tyler Results: Peritoneal dialysate fluid culture October 28 negative Recent Imaging Studies: MRI of the spine October 30, a significantly limited exam, reveals further interval collapse of the T4 vertebral body with mild associated bone marrow edema Assessment/Plan ID Impression: Overall improved, with temperatures remaining normal (on steroids) and white blood cell count only mildly elevated (possibly secondary to steroids) on Ceftriaxone Day 5 of treatment for pneumococcal sepsis, possibly secondary to pneumonia or meningitis, with a lumbar puncture never performed, or peritonitis secondary to his Tenckhoff catheter. His thrombocytopenia may be secondary to sepsis or medications, including Heparin, which has been discontinued, or Ceftriaxone and, if his platelet count continues to decrease, will need to reevaluate his antibiotics. He will require a total of 10-14 days of antibiotics and will need to consider options for IV therapy if he is to be continued on empiric treatment for meningitis. His recent treatment with Eliquis and thrombocytopenia will require delay of placement of a Pro-Line, and it may be possible to complete his treatment with a peripheral IV but will discuss further. IP Ceftriaxone is not considered to be an option per Renal. Suggestion: 1. Continue close monitoring of his platelet count 2. Continue Ceftriaxone for now but will reevaluate, as noted above, if his platelet count continues to decrease
[2017-10-31 20:45] LABS: ABSOLUTE BASOPHIL COUNT 0.1 /CUMM (0.0-0.2); ABSOLUTE EOSINOPHIL COUNT 0 /CUMM (0.0-0.7); ABSOLUTE GRANULOCYTE CT 10.1 /CUMM (1.4-6.5); ABSOLUTE LYMPH COUNT 0.8 /CUMM (1.2-3.4); ABSOLUTE MONOCYTE COUNT 0.3 /CUMM (0.10-0.60); BASOPHIL % 0.5 % (0.0-2.0); EOSINOPHIL % 0.1 % (0-5); HEMATOCRIT 31.5 % (42-52); MEAN CORPUSCULAR HGB 31.3 PG (27.0-31.0); MEAN CORPUSCULAR HGB CONC 32.3 G/DL (33.0-37.0); MEAN CORPUSCULAR VOLUME 96.9 FL (80.0-94.0); MEAN PLATELET VOLUME 8.7 FL (7.4-10.4); RBC DISTRIBUTION WIDTH 18.3 % (11.5-14.5); RED BLOOD CELL CT 3.25 /CUMM (4.70-6.10); WHITE BLOOD CELL COUNT 11.2 /CUMM (4.8-10.8)
[2017-10-31 20:46] LABS: GRANULOCYTE % 90.2 % (42.2-75.2)
[2017-10-31 20:53] LABS: PLATELET COUNT 39 /CUMM (130-400)
[2017-10-31 22:05] VITALS: BP 118/74
[2017-11-01 06:35] VITALS: BP 100/76
--- NOTE | 2017-11-01 07:20 | PN- Oncology ---
Subjective Subjective: Offers no new complaints, specifically denies increased bleeding or bruising 12 point review of systems unchanged Objective Vital Signs and I&Os Vital Signs Date Time Temp Pulse Resp B/P B/P Pulse O2 O2 Flow FiO2 Mean Ox Delivery Rate 11/01 0635 97.8 70 20 100/76 93 Nasal Cannula 11/01 0000 94 Nasal 2.0L Cannula 10/31 2205 97.7 69 18 118/74 94 Nasal Cannula 10/31 2147 66 120/60 10/31 1600 93 Nasal 2.0L Cannula 10/31 1420 97.6 78 18 126/60 96 Nasal 1.0L Cannula 10/31 1203 80 110/90 10/31 0800 Nasal 2.0L Cannula Intake & Output 11/01 0800 11/01 0000 10/31 1600 10/31 0800 10/31 0000 10/30 1600 Intake Total 360 414 41 1105 2450 Output Total 50 450 0 100 2000 200 Balance 310 -90 0 -30 300 2250 Intake, 2100 2000 Dialysate Intake, IV 20 Intake, Oral 360 360 50 200 450 Number 1 Bowel Movements Output, 50 450 0 100 2000 200 Dialysate Patient 191 lb 185 lb Weight Weight Bed scale Bed scale Measurement Method Gen.: in NAD ENT: Sclera anicteric Chest: Normal respiratory effort, decrease breath sounds Cor: RRR, no extra sounds Abdomen: Soft, bowel sounds present, no tenderness, no rebound Extremities: Without clubbing, cyanosis, or asymmetric edema Neurology: Alert and oriented 3, no gross deficit Current Medications: Current Medications Sig/Christie Start time Last Medication Dose Route Stop Time Status Admin Carvedilol 3.125 MG BID 10/31 1055 AC 10/31 PO 2147 Ceftriaxone Sodium 2,000 MG 10/27 2100 AC 10/31 IV 2147 Heparin Sodium 5,000 UNIT Q8 10/31 1400 CAN (Porcine) SC Hydrocortisone 50 MG Q8 10/30 1400 AC 11/01 Sodium Succinate IV 0644 Lorazepam 0.5 MG ONE ONE 10/31 1700 DC 10/31 PO 10/31 1701 1708 Lubiprostone 24 MCG BID 10/25 2200 AC 10/31 PO 2145 Magnesium Oxide 400 MG DAILY 10/25 1611 AC 10/31 PO 0847 Midodrine 7.5 MG Q8 10/29 1400 AC 11/01 PO 0644 Multivitamins 1 TAB DAILY 10/26 1000 AC 10/31 PO 0847 Oxycodone HCl 10 MG Q4-6 PRN PRN 10/27 2045 AC 10/31 PO 0615 Oxycodone HCl 20 MG 0900,2100 10/26 0900 AC 10/31 PO 2149 Patient Medication 1 ED ONE ONE 10/31 1645 DC Teaching ED 10/31 1646 Polyethylene Glycol 17 GM DAILY 10/27 1645 10/31 PO 0847 Prochlorperazine 10 MG Q6 PRN 10/25 1615 AC PO Senna/Docusate Sodium 1 TAB BID PRN 10/27 164 AC 10/30 PO 2114 Sevelamer Carbonate 3,200 MG WM 10/25 1700 AC 10/31 PO 1708 Sevelamer Carbonate 1,600 MG TID PRN 10/25 161 AC PO Results Last 24 Hours of Lab Results: Laboratory Tests 10/31 1415 Hematology CBC w Diff NO MAN DIFF REQ WBC (4.8 - 10.8 /CUMM) 11.2 H RBC (4.70 - 6.10 /CUMM) 3.25 L Hgb (14.0 - 18.0 G/DL) 10.2 L Hct (42 - 52 %) 31.5 L MCV (80.0 - 94.0 FL) 96.9 H MCH (27.0 - 31.0 PG) 31.3 H MCHC (33.0 - 37.0 G/DL) 32.3 L RDW (11.5 - 14.5 %) 18.3 H Plt Count (130 - 400 /CUMM) 39 L MPV (7.4 - 10.4 FL) 8.7 Gran % (42.2 - 75.2 %) 90.2 H Lymphocytes % (20.5 - 51.1 %) 6.8 L Monocytes % (1.7 - 9.3 %) 2.4 Eosinophils % (0 - 5 %) 0.1 Basophils % (0.0 - 2.0 %) 0.5 Absolute Granulocytes (1.4 - 6.5 /CUMM) 10.1 H Absolute Lymphocytes (1.2 - 3.4 /CUMM) 0.8 L Absolute Monocytes (0.10 - 0.60 /CUMM) 0.3 Absolute Eosinophils (0.0 - 0.7 /CUMM) 0 Absolute Basophils (0.0 - 0.2 /CUMM) 0.1 Immunology Heparin-induced Plt Ab Pending Heparin-PF4 AB OD Pending 10/31 1137 Coagulation PT (9.4 - 12.5 SEC) 10.4 INR (0.90 - 1.17) 0.95 APTT (25 - 37 SEC) 26 Fibrinogen Activity (200 - 393 MG/DL) 701 H D-Dimer High Sensitivty (0 - 243 ng/ml) 2115 H Hematology CBC w Diff NO MAN DIFF REQ WBC (4.8 - 10.8 /CUMM) 10.8 RBC (4.70 - 6.10 /CUMM) 3.12 L Hgb (14.0 - 18.0 G/DL) 10.1 L Hct (42 - 52 %) 30.1 L MCV (80.0 - 94.0 FL) 96.4 H MCH (27.0 - 31.0 PG) 32.3 H MCHC (33.0 - 37.0 G/DL) 33.5 RDW (11.5 - 14.5 %) 18.1 H Plt Count (130 - 400 /CUMM) 36 L MPV (7.4 - 10.4 FL) 9.2 Gran % (42.2 - 75.2 %) 92.2 H Lymphocytes % (20.5 - 51.1 %) 5.7 L Monocytes % (1.7 - 9.3 %) 1.9 Eosinophils % (0 - 5 %) 0 Basophils % (0.0 - 2.0 %) 0.2 Absolute Granulocytes (1.4 - 6.5 /CUMM) 9.9 H Absolute Lymphocytes (1.2 - 3.4 /CUMM) 0.6 L Absolute Monocytes (0.10 - 0.60 /CUMM) 0.2 Absolute Eosinophils (0.0 - 0.7 /CUMM) 0 Absolute Basophils (0.0 - 0.2 /CUMM) 0 Assessment/Plan Assessment/Recommendations: 1. sepsis-clinically stable 2. Multiple myeloma-chemotherapy on hold 3. Worsening thrombocytopenia-no evidence for DIC, most likely this represents rug-induced thrombocytopenia. Heparin has been used over 3 years which would make H.I.T. much less likely. ? Secondary to antibiotics. Complicating the thrombocytopenia is chronic anticoagulation for paroxysmal atrial fibrillation. Currently patient is in sinus rhythm. If the platelet count were to drop any lower, strong consideration should be given holding Eliquis. Given low probability of H.I.T., I would not begin a heparinoid. Recommend- Follow CBC Adjustment of antibiotics as per Bharath Prado MD H.I.T. serologies sent
--- NOTE | 2017-11-01 07:44 | PN- Housestaff ---
HuyAmelia 11/01/17 0733: Subjective Follow-up For: - Septic shock msot likely 2/2 Strep Pneumo - PNA vs meningitis - ESRD on PD - Acute on chronic anemia 2/2 ESRD, and MM s/p 2 units of PRBC x2 - Multiple myleoma on chemo - currently on hold - Acuet on chronic back pain - Type II CO - Hx of chronic afib on Eliquis - on hold - Acute on chronic thrombocytopenia Complaints: no complaints Subjective: Patient seen and examined at bedside. He offers no complaints, deneis any bleeding. Of note he remains afebrile. His repeat CBC later yesterday evening has remained stable in the 30's. Spoke with Dr. Duncan yesterday. Causeof thrombocytopenia is most likely drug induced (B-lactam vs heparin induced). For now, no tx since he is not actively bleeding. This AM's labs are still pending. He worked with PT yesterday and sanjuanita probably go home with PT. His AC continues to remian on hold given thrombocytopenia and in anticipation (if any for proline placement). Review of Systems Constitutional: Denies: chills, fever. EENTM: Denies: visual changes. Cardiovascular: Denies: chest pain, orthopena, palpitations. Respiratory: Denies: cough, orthopnea, short of breath. Gastrointestinal: Denies: abdominal pain, nausea, vomiting. Genitourinary: Reports: no symptoms. Musculoskeletal: Reports: no symptoms. Neurological/Psychological: Denies: headache, numbness, tingling, tremors. Objective Last 24 Hrs of Vital Signs/I&O Vital Signs Date Time Temp Pulse Resp B/P B/P Pulse O2 O2 Flow FiO2 Mean Ox Delivery Rate 11/01 0635 97.8 70 20 100/76 93 Nasal Cannula 11/01 0000 94 Nasal 2.0L Cannula 10/31 2205 97.7 69 18 118/74 94 Nasal Cannula 10/31 2147 66 120/60 10/31 1600 93 Nasal 2.0L Cannula 10/31 1420 97.6 78 18 126/60 96 Nasal 1.0L Cannula 10/31 1203 80 110/90 10/31 0800 Nasal 2.0L Cannula Intake & Output 11/01 0800 11/01 0000 10/31 1600 Intake Total 360 360 Output Total 50 450 0 Balance 310 -90 0 Intake, Oral 360 360 Number 1 Bowel Movements Output, 50 450 0 Dialysate Physical Exam General Appearance: Alert, Oriented X3, Cooperative, No Acute Distress HEENT: Atraumatic, PERRLA, EOMI, Mucous Membr. moist/pink Neck: Supple, No JVD, No thryomegaly Cardiovascular: Normal S1, Normal S2, irregulary irregular Lungs: Clear to Auscultation, Normal Air Movement Abdomen: Normal Bowel Sounds, Soft, No Tenderness, peritoneal dialysis catehter in place Neurological: Normal Speech, Strength at 5/5 X4 Ext, Normal Tone, Sensation Intact, Cranial Nerves 3-12 NL, Reflexes 2+ Extremities: No Edema Current Medications: Current Medications Sig/Christie Start time Last Medication Dose Route Stop Time Status Admin Carvedilol 3.125 MG BID 10/31 1055 AC 10/31 PO 2147 Ceftriaxone Sodium 2,000 MG 10/27 2100 AC 10/31 IV 2147 Heparin Sodium 5,000 UNIT Q8 10/31 1400 CAN (Porcine) SC Hydrocortisone 50 MG Q8 10/30 1400 AC 11/01 Sodium Succinate IV 0644 Lorazepam 0.5 MG ONE ONE 10/31 1700 DC 10/31 PO 10/31 1701 1708 Lubiprostone 24 MCG BID 10/25 2200 10/31 PO 2145 Magnesium Oxide 400 MG DAILY 10/25 1611 AC 10/31 PO 0847 Midodrine 7.5 MG Q8 10/29 1400 AC 11/01 PO 0644 Multivitamins 1 TAB DAILY 10/26 1000 10/31 PO 0847 Oxycodone HCl 10 MG Q4-6 PRN PRN 10/27 2045 10/31 PO 0615 Oxycodone HCl 20 MG 0900,10/26 0900 10/31 PO 2149 Patient Medication 1 ED ONE ONE 10/31 1645 DC Teaching ED 10/31 1646 Polyethylene Glycol 17 GM DAILY 10/27 1645 10/31 PO 0847 Prochlorperazine 10 MG Q6 PRN 10/25 1615 AC PO Senna/Docusate Sodium 1 TAB BID PRN 10/27 1645 AC 10/30 PO 2114 Sevelamer Carbonate 3,200 MG WM 10/25 1700 AC 10/31 PO 1708 Sevelamer Carbonate 1,600 MG TID PRN 04/11 1615 AC PO Last 24 Hrs of Lab/Tyler Results Last 24 Hrs of Labs/Mics: Laboratory Tests 10/31/171999: CBC w Diff NO MAN DIFF REQ, RBC 3.25 L, MCV 96.9 H, MCH 31.3 H, MCHC 32.3 L, RDW 18.3 H, MPV 8.7, Gran % 90.2 H, Lymphocytes % 6.8 L, Monocytes % 2.4, Eosinophils % 0.1, Basophils % 0.5, Absolute Granulocytes 10.1 H, Absolute Lymphocytes 0.8 L, Absolute Monocytes 0.3, Absolute Eosinophils 0, Absolute Basophils 0.1 10/31/17 1415: Heparin-induced Plt Ab Pending, Heparin-PF4 AB OD Pending 10/31/17 1137: PT 10.4, INR 0.95, APTT 26, Fibrinogen Activity 701 H, D-Dimer High Sensitivty 2115 H, CBC w Diff NO MAN DIFF REQ, RBC 3.12 L, MCV 96.4 H, MCH 32.3 H, MCHC 33.5, RDW 18.1 H, MPV 9.2, Gran % 92.2 H, Lymphocytes % 5.7 L, Monocytes % 1.9, Eosinophils % 0, Basophils % 0.2, Absolute Granulocytes 9.9 H, Absolute Lymphocytes 0.6 L, Absolute Monocytes 0.2, Absolute Eosinophils 0, Absolute Basophils 0 Assessment/Plan Assessment: Mr Grant is a 66-year-old gentleman with history of multiple myeloma ( cyclophosphamide, bortezomib, dexamethasone + E Po-last chemo 10/18/2017), previously on hemodialysis, end-stage renal disease and currently on peritoneal dialysis came to the hospital with a chief concern of confusion, hypotension. He was initially admitted to telemetry floor and transferred to ICU for hypotension requiring central line and vasopressors for sepsis thought to be 2/2 meningitis, and or PNA, with blood cultures showing growth of Strep Pneumo. He was started on Vanc and Ceftriaxone and subsequently narrowed down to Ceftriaxone after sensitivities for Strep Pneumo came back being sensitive to penicillin. He was then trasnferred to [facility] for further management. Assessment and Plan: # Septic shock sec to strep pneumonia - Patient was transferred from telemetry to ICU for persistent hypotension, fever, gram positive cocci bacteremia. Patient was found to have fever, hypotension, headache, neck stiffness with gram-positive bacteremia. Possible differentials at that time were meningitis versus pneumonia versus peritoneal fluid infection given cloudy peritoneal fluid. Patient blood cultures are positive for strep pneumonia sensitive to penicillin. CAT scan chest was done which showed multi lolobar areas of consolidation consistent with pneumonia and/ or atelectasis. These are in a similar distribution to that seen in 2017 but are worse. New area of groundglass opacity apex right upper lobe. Initially patient was started on ceftriaxone 2 g daily and vancomycin 1 g daily to cover strep pneumonia, meningitis. Later blood culture turned out strep pneumonia, patient was continued on ceftriaxone 2 g daily for strep pneumonia. Vancomycin was discontinued. Patient remained afebrile with normal WBC count. Patient was also continued on acyclovir prophylactic dose. - He will require 2g of Cetriaxone for possible meningitis for a total foR 10 days (through 11/05/17). ID recs appreciated. -Spoke with IR regrding placement of Proline and patient is schedueld for tmrw, with platelets on hold if need be for tx. However, since he is so close to completing his antibiotic course, might consider not placing juan proline all together. - Of note, Nephro was not enthusiastic about administering Abx through the Tenckhoff catheter. # Hypotension - Stable. Patient was found to have persistent hypotension with SBP varying between 60-70 on admission. He was transferred from telemetry to ICU for central line placement and hypotension management. Right IJ central line was placed, started on levophed. Later levophed was titrated off once his SBP was 90. Off note his baseline blood pressure varies between 80-90. Triple lumen catheter was removed on 10/27/2017 at bedside with the no complications. - Patient was also started on midodrine 5 mg 3 times daily for hypotension,as well as hydrocortisone 100 mg every 8 hours, which was tapered to 50 mg every 8 hours. Holding further palns of tapering, sicne his platelet count dropped ( doubt it is ITP). - His blood pressure has remained stable since we resumed his home dose fo Carvedilol. # Acute on chronic thrombocytopenia - Patient's platelet count took a [facility] 88-->47-->36 ( repeat) and remained stable in the dorothy. - Most likely drug induced (Heparin vs B-lactam). Workup for DIC was negative, and heparin antibody panel is pending. - Will discuss with ID regarding Abx. # Acute on chronic anemia s/p tx with 2 PRBC - H&H stable. Thsi AM labs pending - Patient received 2 units of PRBCs. - Goal H&H > 8/25 - Of note his stools were quiac negative. - Continue to monitor hemoglobin # End-stage renal disease on peritoneal dialysis Peritoneal dialysis as per millroom supervisor recommendations. D/C Heparin 2000 units per dialysis bag, as per millroom supervisor. Monitor for electrolyte shifts. D/C peritoneal fluid cell count and cultures monitoring # Pain Management/ multiple myeloma (cyclophosphamide, bortezomib, dexamethasone + E Po-last chemo 10/18/2017) Continue pain medications oxycodone and OxyContin at home dose for back pain. MRI of total spine was done that showed interval collapse of the T4 vertebral body and there may be mild associated bone marrow edema as well. Paroxysmal atrial fibrillation - Currently rate controlled. - Resumed Co-reg. - Meanwhile continue to hold Eliquis given thromobocytopenia # Type II CO - Elevated troponin and no EKG changes possibly from demand supply mismatch and hypotension DVT prophylaxis On alps given thrombocytopenia Diet-reg diet Patient's family refused renal dialysis diet Code Status Full Code Problem List: 1. History of multiple myeloma 2. Pneumonia Pain Ratin Pain Location: back Pain Goal: Remain pain free Pain Plan: roxicodone and exocodone Tomorrow's Labs & Rationales: CBC- platelet count; H&H BEP - Cr Juwan KRISHNAMURTHY,Isidro 11/01/17 1721: Attending MD Review Statement Attending Statement Attending MD Statement: examined this patient, discuss w/resident/PA/RESHIPPING CLERK, agreed w/resident/PA/RESHIPPING CLERK, discussed with family, reviewed EMR data (avail), discussed with nursing, discussed with case mgmt, amended to note Attending Assessment/Plan: The patient was seen and discussed with resident, family (), nursing, case management and ID (Dr. Prado). Platelet count increasing slowly (44K today). Will need total of 10 days of IV antibiotics per ID. Do not wish to do tunnel cath for this as will only need several days more. Case management looking into options. Clnically the patient is improving and more mobile. wishes home care rather than STR.
--- NOTE | 2017-11-01 09:02 | Discharge Summary ---
Visit Information Visit Dates Admission Date: 10/26/17 Discharge Date: 11/05/17 Hospital Course Course Attending Physician: Isidro Echeverria MD Primary Care Physician: Frederic KRISHNAMURTHY,Tad Navarro Consulting Request: 1 Consulting Specialty: Cardiology Consulting Request: 2 Consulting Specialty: Infectious Disease Consulting Request: 3 Consulting Specialty: Hematology/Oncology Consulting Request: 4 Consulting Specialty: Nephrology Hospital Course: Mr Grant is a 66-year-old gentleman with history of multiple myeloma ( cyclophosphamide, bortezomib, dexamethasone + E Po-last chemo 10/18/2017), previously on hemodialysis, end-stage renal disease and currently on peritoneal dialysis came to the hospital with a chief concern of confusion, hypotension. He was initially admitted to telemetry floor and transferred to ICU for hypotension requiring central line and vasopressors for sepsis thought to be 2/2 meningitis, and or PNA, with blood cultures showing growth of Strep Pneumo. He was started on Vanc and Ceftriaxone and subsequently narrowed down to Ceftriaxone after sensitivities for Strep Pneumo came back being sensitive to penicillin. He was then trasnferred to [facility] for further management. The following problems were addressed during his hospital stay: # Septic shock 2/2 Strep Pneumo Pneumonia/ Meningitis - Patient was transferred from telemetry to ICU for persistent hypotension, fever, gram positive cocci bacteremia. Patient was found to have fever, hypotension, headache, neck stiffness with gram-positive bacteremia. Possible differentials at that time were meningitis versus pneumonia versus peritoneal fluid infection given cloudy peritoneal fluid. Patient blood cultures are positive for strep pneumonia sensitive to penicillin. CAT scan chest was done which showed multi lolobar areas of consolidation consistent with pneumonia and/ or atelectasis. These are in a similar distribution to that seen in 2017 but are worse. New area of groundglass opacity apex right upper lobe. Initially patient was started on ceftriaxone 2 g daily and vancomycin 1 g daily to cover strep pneumonia, meningitis. Later blood culture turned out strep pneumonia, patient was continued on ceftriaxone 2 g daily for strep pneumonia. Vancomycin was discontinued. Patient remained afebrile with normal WBC count. Patient was also continued on acyclovir prophylactic dose. He was treated with 2g of Cetriaxone for possible meningitis for a total for 10 days (through 11/05/17). # Hypotension Patient was found to have persistent hypotension with SBP varying between 60-70 on admission. He was transferred from telemetry to ICU for central line placement and hypotension management. Right IJ central line was placed, started on levophed. Later levophed was titrated off once his SBP was 90. Off note his baseline blood pressure varies between 80-90. Triple lumen catheter was removed on 10/27/2017 at bedside with the no complications. Patient was also started on midodrine 5 mg 3 times daily for hypotension, as well as hydrocortisone for stress dose. His blood pressure subsequently remained stable and his home dose of Carvedilol was resumed . # Acute on chronic thrombocytopenia - Patients platelet count took a marielena while in the hospital from 88-->47-->36 and remained stable in the 30-40's. This was attributed to be drug induced ( Heparin vs B-lactam). Workup for DIC was negative, and heparin antibody panel was negative. He was continued on Ceftrixone with close monitoring of his platelet count. Patient was also on Eliquis which was held on D/C given hx thrombocytopenia. Patient is to have a repeat CBC within a week of D/C and is to follow up with his mirror maker regarding resuming his AC. # Acute on chronic anemia s/p tx with 2 PRBC - Patient received 2 units of PRBCs while in the ICU. Of note his stools were guiac negative. Goal H&H > 8/25 . His H&H remained stable post-transfusion. # End-stage renal disease on peritoneal dialysis Patient continued with peritoneal dialysis as per pulpwood contractor recommendations. # Pain Management/ multiple myeloma (cyclophosphamide, bortezomib, dexamethasone + E Po-last chemo 10/18/2017) He was continued on pain medications OxyContin at home dose for back pain. Chemotherapy was held as per Heme/Onc recs. Patient c/o of worsening back pain. MRI of total spine w/o contrast (given ESRD) was done that showed interval collapse of the T4 vertebral body and with ? mild associated bone marrow edema. Patient did not have any focal neuro deficits. He is to follow up with his security advisor as an outpatient. # Paroxysmal atrial fibrillation - Patient has PAF and was on Co-reg and Elquis. His Co-reg was initially held given hypotension which was later resumed once he stabilized. Of note he remained rate controlled. Meanwhile, we held Eliquis on admission, in anticipation of any procedure including lumbar punctures to r/o meningitis. His AC was trasniently resumed (10/29 -10/30) but held again in ancticipation of a proline placement in the event he required prolonged course of abx on discharge. However, patient's hospital course was complicated by acute on chronic thrombocytopenia and Elqius was held again. It was also deemed that risk versus benefits of placing a proline was higher,a nd that 10 days of IV Abx would suffice. Patient's AC was held on discharge with plans to resume as an outpatient. Patient should follow up with his mirror maker regarding this within a week of discharge. # Type II AK - Patient had elevated troponins which peaked at 1.77. Trops trended 0.98-> 1.23 -->1.77->0.38. He had no EKG changes possibly from demand supply mismatch and hypotension. DVT prophylaxis - He was on ALPs given thrombocytopenia Diet - Patient was on regular diet. Patient's family refused renal dialysis diet. Allergies: Coded Allergies: NO KNOWN ALLERGIES (06/29/16) Significant Procedures: SERVICE DATE: 10/25/17 EXAM TYPE: RAD - XRY-PORTABLE CHEST XRAY FINDINGS: There are low lung volumes with bronchovascular crowding. Hazy opacity present in the left infrahilar region and right upper lung. No evidence of pleural effusion or pneumothorax. Cardiomediastinal silhouette is unchanged. IMPRESSION: Hazy opacities in the right upper lung and left base given low lung volumes and distribution are favored to represent atelectasis. SERVICE DATE: 10/25/17 EXAM TYPE: CAT - CT HEAD WO IV CONTRAST FINDINGS: And motion degrades image quality therefore the diagnostic accuracy of this examination is limited. There is no acute intracranial hemorrhage or abnormal extra axial collision. No intracranial mass effect or midline shift. Lateral and third ventricles are normal. No hydrocephalus. Scattered ill-defined foci of hypoattenuation was within the periventricular white matter. Carreno-white matter projection is grossly preserved and there is no evidence of acute territorial infarct. The calvarium and skull base are intact. Mastoid air cells and middle ear cavities are well-aerated. Visualized paranasal sinuses are well-aerated. IMPRESSION: Normal CT scan of the head. No evidence acute territorial infarct or hemorrhage. SERVICE DATE: 10/25/17 EXAM TYPE: CARD - ECHOCARDIOGRAM FINDINGS Left Ventricle Off angle views. Normal global left ventricular size, wall thickness, systolic function with no obvious regional wall motion abnormalities. Normal left ventricular ejection fraction estimated at 65-70%. Right Ventricle Normal right ventricular size and function. Right Atrium Right atrium not well visualized, grossly normal. Left Atrium Left atrium not well visualized, grossly normal. Mitral Valve Mild mitral annular calcification. Trace to mild mitral regurgitation. Aortic Valve Diffuse thickening (sclerosis) of the aortic valve cusps without reduced excursion. Tricuspid Valve Tricuspid valve not well visualized, grossly normal. Moderate tricuspid regurgitation. Right ventricular systolic pressure estimated to be elevated at 38 mmHg. Pulmonic Valve Pulmonic valve not well visualized, grossly normal. Pericardium No pericardial effusion. Great Vessels Normal size aortic root. CONCLUSIONS Suboptimal views. Hyperdynamic left ventricular systolic function. Normal Right ventricular systolic function. No significant valvular abnormalities noted Raul Collins M.D. (Electronically Signed) Final Date: 25 October 2017 21:15 Amended: 26 October 2017 13:07 MEASUREMENTS (Male / Female) Normal Values 2D ECHO LV Diastolic Diameter PLAX 2.4 cm 4.2 - 5.9 / 3.9 - 5.3 cm LV Systolic Diameter PLAX 1.6 cm 2.1 - 4.0 cm LV Fractional Shortening PLAX 33.3 % 25 - 46 % LV Ejection Fraction 2D Teich 64.4 % IVS Diastolic Thickness 1.0 cm LVPW Diastolic Thickness 1.0 cm LV Relative Wall Thickness 0.8 RV Internal Dim ED PLAX 2.1 cm 1.9 - 3.8 cm LVOT Diameter 1.9 cm Aortic Root Diameter 3.4 cm LA Systolic Diameter LX 3.5 cm 3.0 - 4.0 / 2.7 - 3.8 cm LA Volume 49.0 cm 18 - 58 / 22 - 52 cm DOPPLER AV Peak Velocity 165.0 cm/s AV Peak Gradient 10.9 mmHg AV Mean Velocity 124.0 cm/s AV Mean Gradient 7.0 mmHg AV Velocity Time Integral 27.2 cm LVOT Peak Velocity 142.0 cm/s LVOT Peak Gradient 8.1 mmHg LVOT Mean Velocity 97.5 cm/s LVOT Mean Gradient 4.0 mmHg LVOT Velocity Time Integral 21.6 cm LVOT Stroke Volume 61.2 cm AV Area Cont Eq vti 2.3 cm AV Area Cont Eq pk 2.4 cm MV Peak Velocity 139.0 cm/s MV Peak Gradient 7.7 mmHg MV Mean Velocity 71.7 cm/s MV Mean Gradient 3.0 mmHg Mitral E Point Velocity 94.8 cm/s Mitral A Point Velocity 128.0 cm/s Mitral E to A Ratio 0.7 MV PHT Velocity 110.0 cm/s MV Deceleration [place] 520.0 cm/s MV Pressure Half Time 63.5 ms MV Area PHT 3.5 cm MV Deceleration Time 145.0 ms TR Peak Velocity 286.0 cm/s TR Peak Gradient 32.7 mmHg Right Atrial Pressure 5.0 mmHg Pulmonary Artery Systolic Pressu 37.7 mmHg Right Ventricular Systolic Press 37.7 mmHg PV Peak Velocity 85.8 cm/s PV Peak Gradient 2.9 mmHg PV Mean Velocity 62.2 cm/s PV Mean Gradient 2.0 mmHg PV Velocity Time Integral 11.5 cm LV E' Lateral Velocity 14.9 cm/s Mitral E to LV E' Lateral Ratio 6.4 LV E' Septal Velocity 8.2 cm/s Mitral E to LV E' Septal Ratio 11.6 SERVICE DATE: 10/27/17- EXAM TYPE: CAT - CT CHEST WO IV CONTRAST FINDINGS: FUEL CELL REPAIRER: Noncontributory. Gastric distention by air and gaseous distention of the transverse colon LUNGS: A focal area of peripheral groundglass opacity is located in the right apex. In addition, there are segmental and subsegmental areas of consolidation with air bronchograms located in both lower lobes and the posterior segment of the right upper lobe. Similar findings were noted on a chest CT done 1 year ago MEDIASTINUM: No gross adenopathy. PLEURA: There are bilateral trace pleural effusions. AXILLA: No lymphadenopathy. UPPER ABDOMEN: Free fluid and air in the abdomen are secondary to peritoneal dialysis. OSSEOUS STRUCTURES: Again there is severe osteoporosis with numerous vertebral compression fractures of the thoracic and upper lumbar spine. There is near vertebral plana at T6, T7, and T8 as well as L1. IMPRESSION: 1. Multi sublobar areas of consolidation consistent with pneumonia and/or atelectasis. These are in a similar distribution to that seen in 2017 but are worse. 2. New area of groundglass opacity apex right upper lobe. 3. Trace bilateral pleural effusions. 4. Severe osteoporosis with numerous vertebral compression fractures. SERVICE DATE: 10/27/17-0014 EXAM TYPE: RAD - XRY-PORTABLE CHEST XRAY FINDINGS: There is a new right internal jugular central venous catheter. The catheter extends laterally along the superior aspect of the right hemithorax. This could be positioned within the right subclavian vein. This does not extend to normal position in the superior vena cava. Cardiac Loop recorder overlies the heart. Low lung volumes. Perihilar opacity is similar to prior. Left basilar opacity is similar to prior. No pneumothorax or pleural effusion. The cardiomediastinal silhouette remains prominent. IMPRESSION: There is a new right internal jugular central venous catheter which extends to an abnormal position, possibly within the right subclavian vein. Recommend repositioning. No pneumothorax. Low lung volumes with similar perihilar prominence and left basilar opacity. SERVICE DATE: 10/30/17- EXAM TYPE: MRI - MRI-CERVICAL SPINE; MRI-LUMBAR SPINE; MRI-THORACIC SPINE FINDINGS: The exam is significantly limited due to prominent motion artifact and limited rapid scanning sequences. CERVICAL: There is stable grade 1 anterolisthesis of C4 on C5. Vertebral bodies are normal in height, bone marrow is normal in signal intensity on all sequences, and overall disc volumes are preserved. There is at least moderate central canal stenosis at C4-C5 that is unchanged. No definite focal cord signal abnormality is appreciated. THORACIC/LUMBAR: On the sagittal images, alignment of the thoracic and lumbar spine remains anatomic. Compression deformities are again noted at T4, as well as T6-L5. There has probably been further interval collapse of the T4 vertebral body and there appears to be a small amount of bone marrow edema within this vertebral body. Remaining vertebral bodies do not demonstrate any definite evidence of bone marrow edema. No severe canal stenosis is seen at any level. The foramina are difficult to assess. No focal cord signal abnormality is seen at any level. The conus terminates at the L1-L2 level. IMPRESSION: Significantly limited examination. There appears to have been some further interval collapse of the T4 vertebral body and there may be mild associated bone marrow edema as well. Disposition Summary Disposition Principal Diagnosis: - Septic shock most likely 2/2 Strep Pneumo PNA vs meningitis - Acute on chronic thrombocytopenia - Type II AK Additional Diagnosis: - ESRD on PD - Acute on chronic anemia 2/2 ESRD, and MM s/p 2 units of PRBC x2 - Hx of chronic afib on Eliquis - Multiple myleoma on chemo Discharge Disposition: home health services Discharge Instructions General Discharge Information Code Status: Full Code Patient's Diet: Regular. Patient's Activity: As tolerated. Follow-Up Instructions/Appts: Please follow up with your primary care physician in one week. Please follow up with your security advisor in one week. Please follow up with your mirror maker in one week. Please have a repeat CBC in one week, to monitor thrombocytopenia. Medications at Discharge Discharge Medications: Stop taking the following medications: Apixaban (Eliquis) 2.5 MG TABLET ORAL TWICE DAILY Qty = 60 Continue taking these medications: Sevelamer Carbonate (Renvela) 800 MG TABLET 4 Tablet ORAL WITH MEALS Qty = 480 Comments: Last Taken: 11/05/17 Time: 0816 Acyclovir (Acyclovir) 200 MG CAPSULE 1 Capsule ORAL DAILY Qty = 30 Comments: NOT TAKEN IN HOSPITAL Oxycodone HCl (Oxycodone HCl) 10 MG TABLET 1-2 Tablet ORAL Q4-6H as needed for PAIN Qty = 100 Comments: Last Taken: 09/02/16 Time: 8:30 AM Vit B Cmplx 3/FA/Vit C/Biotin (Nephro-Nola Rx Tablet) 1 MG-60 MG-300 MCG TABLET 1 Tablet ORAL DAILY Qty = 30 Comments: NOT TAKEN IN HOSPITAL Prochlorperazine Maleate (Prochlorperazine Maleate) 10 MG TABLET 1 Tablet ORAL EVERY SIX HOURS as needed for N/V Comments: NOT TAKEN IN HOSPITAL Oxycodone HCl (Oxycodone HCl ER) 20 MG TAB.ER.12H 1 Tablet ORAL TWICE DAILY Comments: Last Taken: 11/01/21 Time: 0848 Magnesium Oxide (Magnesium Oxide) 400 MG TABLET 1 Tablet ORAL DAILY Qty = 30 Comments: Last Taken: 11/05/17 Time: 0815 Carvedilol (Carvedilol) 3.125 MG TABLET 1 Tablet ORAL TWICE DAILY Qty = 30 Comments: Last Taken: 11/05/17 Time: 0816 Lubiprostone (Amitiza) 24 MCG CAPSULE 1 Capsule ORAL TWICE DAILY Qty = 60 Comments: Last Taken: 11/05/17 Time: 0816 Sevelamer Carbonate (Renvela) 800 MG TABLET 2 Tablet ORAL THREE TIMES DAILY as needed for KIDNEYS Comments: NOT TAKEN IN HOSPITAL Copies To: Harjeet KRISHNAMURTHY,Bjorn Duncan MD,Ace De La Garza MD,Tad Peter Attending MD Review Statement Documenting Attending: Isidro Echeverria MD Other Findings: The patient was seen by me during hospital stay and was seen last [address] Leny Castillo. Agree with the plan of care upon discharge. Qty = 2 No Refills Instructions: Please adminster through 11/05/17 Copies To: Harjeet KRISHNAMURTHY,Bjorn Duncan MD,Ace De La Garza MD,Tad Navarro
[2017-11-01 09:23] LABS: PLATELET COUNT 42 /CUMM (130-400)
[2017-11-01 09:24] LABS: PT 10.7 SEC (9.4-12.5)
[2017-11-01 09:28] LABS: ABSOLUTE BASOPHIL COUNT 0 /CUMM (0.0-0.2); ABSOLUTE EOSINOPHIL COUNT 0 /CUMM (0.0-0.7); ABSOLUTE GRANULOCYTE CT 8.9 /CUMM (1.4-6.5); ABSOLUTE LYMPH COUNT 0.6 /CUMM (1.2-3.4); BASOPHIL % 0 % (0.0-2.0); WHITE BLOOD CELL COUNT 9.8 /CUMM (4.8-10.8)
[2017-11-01 10:00] LABS: ABSOLUTE MONOCYTE COUNT 0.3 /CUMM (0.10-0.60); EOSINOPHIL % 0 % (0-5); GRANULOCYTE % 90.6 % (42.2-75.2); HEMATOCRIT 28.8 % (42-52); MEAN CORPUSCULAR HGB 32.2 PG (27.0-31.0); MEAN CORPUSCULAR HGB CONC 33.4 G/DL (33.0-37.0); MEAN CORPUSCULAR VOLUME 96.2 FL (80.0-94.0); MEAN PLATELET VOLUME 8.3 FL (7.4-10.4); RBC DISTRIBUTION WIDTH 17.7 % (11.5-14.5)
[2017-11-01 10:42] LABS: PLATELET COUNT 44 /CUMM (130-400)
[2017-11-01 10:50] LABS: HEPARIN INDUCED PLATELET AB NEGATIVE (NEGATIVE)
--- NOTE | 2017-11-01 10:56 | PN- Cardiology ---
Subjective Subjective: Doing well and back pain is improving. No chest pain, dyspnea, or palpitations. Objective Vital Signs and I&Os Vital Signs Date Time Temp Pulse Resp B/P B/P Pulse O2 O2 Flow FiO2 Mean Ox Delivery Rate 11/01 0845 72 110/80 11/01 0635 97.8 70 20 100/76 93 Nasal Cannula 11/01 0000 94 Nasal 2.0L Cannula 10/31 2205 97.7 69 18 118/74 94 Nasal Cannula 10/31 2147 66 120/60 10/31 1600 93 Nasal 2.0L Cannula 10/31 1420 97.6 78 18 126/60 96 Nasal 1.0L Cannula 10/31 1203 80 110/90 Intake & Output 11/01 1600 11/01 0800 11/01 0000 10/31 1600 10/31 0800 10/31 0000 Intake Total 360 419 90 4604 Output Total 50 450 0 100 2000 Balance 310 -90 0 -30 300 Intake, 2100 Dialysate Intake, IV 20 Intake, Oral 360 360 50 200 Number 1 Bowel Movements Output, 50 450 0 100 2000 Dialysate Patient 191 lb Weight Weight Bed scale Measurement Method Physical Exam: General: no apparent distress. Alert. Eyes: No obvious scleral icterus. HEENT: Right IJ noted Cardiovascular: Normal intensity S1/S2. Regular Respiratory: Lungs clear to auscultation bilaterally. Abdomen: Soft, nontender with no guarding or rebound tenderness. Musculoskeletal: No clubbing or cyanosis noted, no edema Skin: Warm Neurologic: No gross focal deficits noted. Current Medications: Current Medications Sig/Christie Start time Last Medication Dose Route Stop Time Status Admin Carvedilol 3.125 MG BID 10/31 1055 AC 11/01 PO 0845 Ceftriaxone Sodium 2,000 MG 2100 10/27 2100 AC 10/31 IV 2147 Hydrocortisone 50 MG BID 11/01 2100 AC Sodium Succinate IV Hydrocortisone 50 MG Q8 10/30 1400 DC 11/01 Sodium Succinate IV 0644 Lorazepam 0.5 MG ONE ONE 10/31 1700 DC 10/31 PO 10/31 1701 1708 Lubiprostone 24 MCG BID 10/25 2200 AC 11/01 PO 0845 Magnesium Oxide 400 MG DAILY 10/25 1611 AC 11/01 PO 0845 Midodrine 7.5 MG Q8 10/29 1400 AC 11/01 PO 0644 Multivitamins 1 TAB DAILY 10/26 1000 AC 11/01 PO 0845 Oxycodone HCl 10 MG Q4-6 PRN PRN 10/27 2045 AC 10/31 PO 0615 Oxycodone HCl 20 MG 0900,2100 10/26 0900 AC 11/01 PO 0848 Patient Medication 1 ED ONE ONE 10/31 1645 DC Teaching ED 10/31 1646 Polyethylene Glycol 17 GM DAILY 10/27 1645 AC 11/01 PO 0846 Prochlorperazine 10 MG Q6 PRN 10/25 1615 AC PO Senna/Docusate Sodium 1 TAB BID PRN 10/27 1645 AC 10/30 PO 2114 Sevelamer Carbonate 3,200 MG WM 10/25 1700 AC 11/01 PO 0845 Sevelamer Carbonate 1,600 MG TID PRN 10/25 1615 AC PO Results Last 48 Hrs of Labs/Mics: Laboratory Tests 11/01/17 0810: Anion Gap 14, Estimated GFR 5 L, BUN/Creatinine Ratio 10.1, PT 10.7, INR 0.98, CBC w Diff Pending, WBC Pending, RBC Pending, Hgb Pending, Hct Pending, MCV Pending, MCH Pending, MCHC Pending, RDW Pending, Plt Count Pending, MPV Pending, Gran % Pending, Lymphocytes % Pending, Monocytes % Pending, Eosinophils % Pending, Basophils % Pending, Absolute Granulocytes Pending, Absolute Lymphocytes Pending, Absolute Monocytes Pending, Absolute Eosinophils Pending, Absolute Basophils Pending 10/31/17 2000: CBC w Diff NO MAN DIFF REQ, RBC 3.25 L, MCV 96.9 H, MCH 31.3 H, MCHC 32.3 L, RDW 18.3 H, MPV 8.7, Gran % 90.2 H, Lymphocytes % 6.8 L, Monocytes % 2.4, Eosinophils % 0.1, Basophils % 0.5, Absolute Granulocytes 10.1 H, Absolute Lymphocytes 0.8 L, Absolute Monocytes 0.3, Absolute Eosinophils 0, Absolute Basophils 0.1 10/31/17 1415: Heparin-induced Plt Ab NEGATIVE, Heparin-PF4 AB OD 0.010 10/31/17 1137: PT 10.4, INR 0.95, APTT 26, Fibrinogen Activity 701 H, D-Dimer High Sensitivty 2115 H, CBC w Diff NO MAN DIFF REQ, RBC 3.12 L, MCV 96.4 H, MCH 32.3 H, MCHC 33.5, RDW 18.1 H, MPV 9.2, Gran % 92.2 H, Lymphocytes % 5.7 L, Monocytes % 1.9, Eosinophils % 0, Basophils % 0.2, Absolute Granulocytes 9.9 H, Absolute Lymphocytes 0.6 L, Absolute Monocytes 0.2, Absolute Eosinophils 0, Absolute Basophils 0 10/31/17 0630: Anion Gap 13, Estimated GFR 5 L, BUN/Creatinine Ratio 10.0, CBC w Diff NO MAN DIFF REQ, RBC 2.65 L, MCV 96.1 H, MCH 32.4 H, MCHC 33.7, RDW 17.9 H, MPV 7.9 , Gran % 90.5 H, Lymphocytes % 7.0 L, Monocytes % 2.4, Eosinophils % 0.1, Basophils % 0, Absolute Granulocytes 8.9 H, Absolute Lymphocytes 0.7 L, Absolute Monocytes 0.2, Absolute Eosinophils 0, Absolute Basophils 0 Recent Imaging Studies: MRI: Significantly limited examination. There appears to have been some further interval collapse of the T4 vertebral body and there may be mild associated bone marrow edema as well. Assessment/Plan Assessment/Plan 1. Hypotension, improved 2. Multiple myeloma 3. Anemia requiring transfusion 4. Paroxysmal atrial fibrillation on low-dose eliquis and with implantable loop recorder 5. End-stage renal disease on peritoneal dialysis 6. History of hypertension on outpatient low-dose coreg 7. Elevated troponin due to end-stage renal disease and hypotension 8. Septic shock/bacteremia 9. Thrombocytopenia Feeling better today. Remains in sinus rhythm by exam and would continue to hold Eliquis for now in the setting of significant thrombocytopenia; hematology is following. Continue on the low-dose carvedilol. Antibiotics per ID. CBC today is pending. Agustín Cosby MD [facility] Continue telemetry? Not applicable
--- NOTE | 2017-11-01 11:06 | PN- Infect Dx ---
Subjective Subjective: Afebrile on steroids. He feels well with decreased neck pain but with persistent mid back pain. His states that his cough, which began after admission, persists, though it is nonproductive. Objective Last 24 Hrs of Vital Signs/I&O Vital Signs Date Time Temp Pulse Resp B/P B/P Pulse O2 O2 Flow FiO2 Mean Ox Delivery Rate 11/01 0845 72 110/80 11/01 0635 97.8 70 20 100/76 93 Nasal Cannula 11/01 0000 94 Nasal 2.0L Cannula 10/31 2205 97.7 69 18 118/74 94 Nasal Cannula 10/31 2147 66 120/60 10/31 1600 93 Nasal 2.0L Cannula 10/31 1420 97.6 78 18 126/60 96 Nasal 1.0L Cannula 10/31 1203 80 110/90 Intake & Output 11/01 1600 11/01 0800 11/01 0000 Intake Total 360 360 Output Total 50 450 Balance 310 -90 Intake, Oral 360 360 Number 1 Bowel Movements Output, 50 450 Dialysate Physical Exam Other Physical Findings: He appears comfortable in no acute distress Neck nontender to palpation posteriorly, with increased range of motion Lungs crackles at the left midlung Heart regular rhythm with no murmur Abdomen is mildly distended, nontender with positive bowel sounds; Tenckhoff catheter in place Extremities no cyanosis, clubbing or edema Results Last 24 Hours of Lab Results: Laboratory Tests 11/01 10/31 0810 1999 Chemistry Sodium (137 - 145 mmol/L) 135 L Potassium (3.5 - 5.1 mmol/L) 3.9 Chloride (98 - 107 mmol/L) 95 L Carbon Dioxide (22 - 30 mmol/L) 26 Anion Gap (5 - 16) 14 BUN (9 - 20 mg/dL) 98 H Creatinine (0.7 - 1.2 mg/dL) 9.7 *H Estimated GFR (>60 ml/min) 5 L BUN/Creatinine Ratio (7 - 25 %) 10.1 Coagulation PT (9.4 - 12.5 SEC) 10.7 INR (0.90 - 1.17) 0.98 Hematology CBC w Diff MAN DIFF ORDERED NO MAN DIFF REQ WBC (4.8 - 10.8 /CUMM) 9.8 11.2 H RBC (4.70 - 6.10 /CUMM) 3.00 L 3.25 L Hgb (14.0 - 18.0 G/DL) 9.6 L 10.2 L Hct (42 - 52 %) 28.8 L 31.5 L MCV (80.0 - 94.0 FL) 96.2 H 96.9 H MCH (27.0 - 31.0 PG) 32.2 H 31.3 H MCHC (33.0 - 37.0 G/DL) 33.4 32.3 L RDW (11.5 - 14.5 %) 17.7 H 18.3 H Plt Count (130 - 400 /CUMM) 44 L 39 L MPV (7.4 - 10.4 FL) 8.3 8.7 Gran % (42.2 - 75.2 %) 90.6 H 90.2 H Lymphocytes % (20.5 - 51.1 %) 6.6 L 6.8 L Monocytes % (1.7 - 9.3 %) 2.8 2.4 Eosinophils % (0 - 5 %) 0 0.1 Basophils % (0.0 - 2.0 %) 0 0.5 Absolute Granulocytes (1.4 - 6.5 /CUMM) 8.9 H 10.1 H Segmented Neutrophils (42.2 - 75.2 %) 86 H Absolute Lymphocytes (1.2 - 3.4 /CUMM) 0.6 L 0.8 L Lymphocytes (20.5 - 51.1 %) 7 L Monocytes (1.7 - 9.3 %) 6 Absolute Monocytes (0.10 - 0.60 /CUMM) 0.3 0.3 Absolute Eosinophils (0.0 - 0.7 /CUMM) 0 0 Absolute Basophils (0.0 - 0.2 /CUMM) 0 0.1 Myelocytes (0 - 0 %) 1 H Nucleated RBCs (0.0 - 0.0 /100WBC) 1 H Platelet Estimate (ADEQUATE) DECREASED Hypochromic-Microcytic 1+ Poikilocytosis FEW Anisocytosis 1+ Ovalocytes 1+ 10/31 10/31 1415 1137 Coagulation PT (9.4 - 12.5 SEC) 10.4 INR (0.90 - 1.17) 0.95 APTT (25 - 37 SEC) 26 Fibrinogen Activity (200 - 393 MG/DL) 701 H D-Dimer High Sensitivty (0 - 243 ng/ml) 2115 H Hematology CBC w Diff NO MAN DIFF REQ WBC (4.8 - 10.8 /CUMM) 10.8 RBC (4.70 - 6.10 /CUMM) 3.12 L Hgb (14.0 - 18.0 G/DL) 10.1 L Hct (42 - 52 %) 30.1 L MCV (80.0 - 94.0 FL) 96.4 H MCH (27.0 - 31.0 PG) 32.3 H MCHC (33.0 - 37.0 G/DL) 33.5 RDW (11.5 - 14.5 %) 18.1 H Plt Count (130 - 400 /CUMM) 36 L MPV (7.4 - 10.4 FL) 9.2 Gran % (42.2 - 75.2 %) 92.2 H Lymphocytes % (20.5 - 51.1 %) 5.7 L Monocytes % (1.7 - 9.3 %) 1.9 Eosinophils % (0 - 5 %) 0 Basophils % (0.0 - 2.0 %) 0.2 Absolute Granulocytes (1.4 - 6.5 /CUMM) 9.9 H Absolute Lymphocytes (1.2 - 3.4 /CUMM) 0.6 L Absolute Monocytes (0.10 - 0.60 /CUMM) 0.2 Absolute Eosinophils (0.0 - 0.7 /CUMM) 0 Absolute Basophils (0.0 - 0.2 /CUMM) 0 Immunology Heparin-induced Plt Ab (NEGATIVE) NEGATIVE Heparin-PF4 AB OD (<OR= 0.300 OD UNITS) 0.010 Last 24 Hours of [place] Results: No recent cultures Assessment/Plan ID Impression: Overall improved, with temperatures remaining normal (on steroids) and white blood cell count also normal on Ceftriaxone Day 6 of treatment for pneumococcal sepsis, possibly secondary to pneumonia or meningitis, with a lumbar puncture never performed, or peritonitis secondary to his Tenckhoff catheter. His thrombocytopenia may be secondary to sepsis or medications, but it has increased today; therefore should be able to continue him on the Ceftriaxone. He will require a total of 10-14 days of antibiotics and, as discussed, feel that he should be able to complete his course of antibiotics with a peripheral IV and, thereby, avoid the need for a central line. Suggestion: 1. Continue Ceftriaxone to plan on a total of 10 days of treatment
--- NOTE | 2017-11-01 11:44 | PN- Nephrology ---
Assessment/Plan Nephrology Assessment: Stable from renal standpoint. Finishing treatment for bacteremia should treat secondary peritonitis. Suggestion: No changes. Subjective Subjective: Patient fatigued after exercise this AM. reports PD fluid cleaer. Objective Vital Signs and I&Os Vital Signs Date Time Temp Pulse Resp B/P B/P Pulse O2 O2 Flow FiO2 Mean Ox Delivery Rate 11/01 0845 72 110/80 11/01 0635 97.8 70 20 100/76 93 Nasal Cannula 11/01 0000 94 Nasal 2.0L Cannula 10/31 2205 97.7 69 18 118/74 94 Nasal Cannula 10/31 2147 66 120/60 10/31 1600 93 Nasal 2.0L Cannula 10/31 1420 97.6 78 18 126/60 96 Nasal 1.0L Cannula 10/31 1203 80 110/90 Intake & Output 11/01 1600 11/01 0400 10/31 1600 10/31 0400 10/30 1600 10/30 0400 Intake Total 360 883 18 5714 2570 90 Output Total 50 737 660 6959 100 -500 Balance 310 -90 -475 060 5183 590 Intake, 2100 2000 Dialysate Intake, IV 20 20 40 Intake, Oral 360 360 50 200 550 50 Number 1 Bowel Movements Output, 50 857 099 4457 100 -500 Dialysate Patient 191 lb 185 lb Weight Weight Bed scale Bed scale Measurement Method Physical Exam: NAD VS as above Lungs:clear CV: no rub Abd: nontender Exts: trace dependent edema Neuro: A&O Current Medications: Current Medications Sig/Christie Start time Last Medication Dose Route Stop Time Status Admin Carvedilol 3.125 MG BID 10/31 1055 AC 11/01 PO 0845 Ceftriaxone Sodium 2,000 MG 10/27 2100 AC 10/31 IV 2147 Hydrocortisone 50 MG BID 11/01 2100 AC Sodium Succinate IV Hydrocortisone 50 MG Q8 10/30 1400 DC 11/01 Sodium Succinate IV 0644 Lorazepam 0.5 MG ONE ONE 10/31 1700 DC 10/31 PO 10/31 1701 1708 Lubiprostone 24 MCG BID 10/25 2200 AC 11/01 PO 0845 Magnesium Oxide 400 MG DAILY 10/25 1611 AC 11/01 PO 0845 Midodrine 7.5 MG Q8 10/29 1400 AC 11/01 PO 0644 Multivitamins 1 TAB DAILY 10/26 1000 AC 11/01 PO 0845 Oxycodone HCl 10 MG Q4-6 PRN PRN 10/27 2045 AC 10/31 PO 0615 Oxycodone HCl 20 MG 0900,2100 10/26 0900 AC 11/01 PO 0848 Patient Medication 1 ED ONE ONE 10/31 1645 DC Teaching ED 10/31 1646 Polyethylene Glycol 17 GM DAILY 10/27 1645 AC 11/01 PO 0846 Prochlorperazine 10 MG Q6 PRN 10/25 1615 AC PO Senna/Docusate Sodium 1 TAB BID PRN 10/27 1645 AC 10/30 PO 2114 Sevelamer Carbonate 3,200 MG WM 10/25 1700 AC 11/01 PO 0845 Sevelamer Carbonate 1,600 MG TID PRN 10/25 1615 AC PO Results Pertinent Lab Results: Laboratory Tests 11/01 10/31 0810 2000 Chemistry Sodium (137 - 145 mmol/L) 135 L Potassium (3.5 - 5.1 mmol/L) 3.9 Chloride (98 - 107 mmol/L) 95 L Carbon Dioxide (22 - 30 mmol/L) 26 Anion Gap (5 - 16) 14 BUN (9 - 20 mg/dL) 98 H Creatinine (0.7 - 1.2 mg/dL) 9.7 *H Estimated GFR (>60 ml/min) 5 L BUN/Creatinine Ratio (7 - 25 %) 10.1 Coagulation PT (9.4 - 12.5 SEC) 10.7 INR (0.90 - 1.17) 0.98 Hematology CBC w Diff MAN DIFF ORDERED NO MAN DIFF REQ WBC (4.8 - 10.8 /CUMM) 9.8 11.2 H RBC (4.70 - 6.10 /CUMM) 3.00 L 3.25 L Hgb (14.0 - 18.0 G/DL) 9.6 L 10.2 L Hct (42 - 52 %) 28.8 L 31.5 L MCV (80.0 - 94.0 FL) 96.2 H 96.9 H MCH (27.0 - 31.0 PG) 32.2 H 31.3 H MCHC (33.0 - 37.0 G/DL) 33.4 32.3 L RDW (11.5 - 14.5 %) 17.7 H 18.3 H Plt Count (130 - 400 /CUMM) 44 L 39 L MPV (7.4 - 10.4 FL) 8.3 8.7 Gran % (42.2 - 75.2 %) 90.6 H 90.2 H Lymphocytes % (20.5 - 51.1 %) 6.6 L 6.8 L Monocytes % (1.7 - 9.3 %) 2.8 2.4 Eosinophils % (0 - 5 %) 0 0.1 Basophils % (0.0 - 2.0 %) 0 0.5 Absolute Granulocytes (1.4 - 6.5 /CUMM) 8.9 H 10.1 H Segmented Neutrophils (42.2 - 75.2 %) 86 H Absolute Lymphocytes (1.2 - 3.4 /CUMM) 0.6 L 0.8 L Lymphocytes (20.5 - 51.1 %) 7 L Monocytes (1.7 - 9.3 %) 6 Absolute Monocytes (0.10 - 0.60 /CUMM) 0.3 0.3 Absolute Eosinophils (0.0 - 0.7 /CUMM) 0 0 Absolute Basophils (0.0 - 0.2 /CUMM) 0 0.1 Myelocytes (0 - 0 %) 1 H Nucleated RBCs (0.0 - 0.0 /100WBC) 1 H Platelet Estimate (ADEQUATE) DECREASED Hypochromic-Microcytic 1+ Poikilocytosis FEW Anisocytosis 1+ Ovalocytes 1+ 10/31 10/31 1415 1137 Coagulation PT (9.4 - 12.5 SEC) 10.4 INR (0.90 - 1.17) 0.95 APTT (25 - 37 SEC) 26 Fibrinogen Activity (200 - 393 MG/DL) 701 H D-Dimer High Sensitivty (0 - 243 ng/ml) 2115 H Hematology CBC w Diff NO MAN DIFF REQ WBC (4.8 - 10.8 /CUMM) 10.8 RBC (4.70 - 6.10 /CUMM) 3.12 L Hgb (14.0 - 18.0 G/DL) 10.1 L Hct (42 - 52 %) 30.1 L MCV (80.0 - 94.0 FL) 96.4 H MCH (27.0 - 31.0 PG) 32.3 H MCHC (33.0 - 37.0 G/DL) 33.5 RDW (11.5 - 14.5 %) 18.1 H Plt Count (130 - 400 /CUMM) 36 L MPV (7.4 - 10.4 FL) 9.2 Gran % (42.2 - 75.2 %) 92.2 H Lymphocytes % (20.5 - 51.1 %) 5.7 L Monocytes % (1.7 - 9.3 %) 1.9 Eosinophils % (0 - 5 %) 0 Basophils % (0.0 - 2.0 %) 0.2 Absolute Granulocytes (1.4 - 6.5 /CUMM) 9.9 H Absolute Lymphocytes (1.2 - 3.4 /CUMM) 0.6 L Absolute Monocytes (0.10 - 0.60 /CUMM) 0.2 Absolute Eosinophils (0.0 - 0.7 /CUMM) 0 Absolute Basophils (0.0 - 0.2 /CUMM) 0 Immunology Heparin-induced Plt Ab (NEGATIVE) NEGATIVE Heparin-PF4 AB OD (<OR= 0.300 OD UNITS) 0.010 10/31 10/30 0630 0730 Chemistry Sodium (137 - 145 mmol/L) 135 L 136 L Potassium (3.5 - 5.1 mmol/L) 3.8 4.0 Chloride (98 - 107 mmol/L) 96 L 95 L Carbon Dioxide (22 - 30 mmol/L) 27 27 Anion Gap (5 - 16) 13 15 BUN (9 - 20 mg/dL) 97 H 92 H Creatinine (0.7 - 1.2 mg/dL) 9.7 *H 9.5 *H Estimated GFR (>60 ml/min) 5 L 6 L BUN/Creatinine Ratio (7 - 25 %) 10.0 Glucose (65 - 99 mg/dL) 131 H Calcium (8.4 - 10.2 mg/dL) 7.8 L Phosphorus (2.5 - 4.5 mg/dL) 6.5 H Magnesium (1.6 - 2.3 mg/dL) 2.1 Total Bilirubin (0.2 - 1.3 mg/dL) 0.3 AST (17 - 59 U/L) 21 ALT (21 - 72 U/L) 44 Albumin (3.5 - 5.0 g/dL) 2.3 L Hematology CBC w Diff NO MAN DIFF REQ NO MAN DIFF REQ WBC (4.8 - 10.8 /CUMM) 9.8 9.9 RBC (4.70 - 6.10 /CUMM) 2.65 L 2.60 L Hgb (14.0 - 18.0 G/DL) 8.6 L 8.4 L Hct (42 - 52 %) 25.5 L 25.0 L MCV (80.0 - 94.0 FL) 96.1 H 96.4 H MCH (27.0 - 31.0 PG) 32.4 H 32.2 H MCHC (33.0 - 37.0 G/DL) 33.7 33.4 RDW (11.5 - 14.5 %) 17.9 H 18.3 H Plt Count (130 - 400 /CUMM) 42 L 87 L MPV (7.4 - 10.4 FL) 7.9 8.2 Gran % (42.2 - 75.2 %) 90.5 H 92.3 H Lymphocytes % (20.5 - 51.1 %) 7.0 L 5.6 L Monocytes % (1.7 - 9.3 %) 2.4 2.0 Eosinophils % (0 - 5 %) 0.1 0.1 Basophils % (0.0 - 2.0 %) 0 0 Absolute Granulocytes (1.4 - 6.5 /CUMM) 8.9 H 9.1 H Absolute Lymphocytes (1.2 - 3.4 /CUMM) 0.7 L 0.5 L Absolute Monocytes (0.10 - 0.60 /CUMM) 0.2 0.2 Absolute Eosinophils (0.0 - 0.7 /CUMM) 0 0 Absolute Basophils (0.0 - 0.2 /CUMM) 0 0 Other Body Source Fluid WBC Cancelled Fld Total RBCs Counted Cancelled
[2017-11-01] MEDS ORDERED: MIDODRINE HCL2.5 M1 PO (15:13)
--- NOTE | 2017-11-01 15:22 | Patient Discharge Instructions ---
Discharge Instructions General Discharge Information You were seen/treated for: 1. Septic shock most likely 2/2 Strep Pneumo 2.PNA vs meningitis 3. Acute on chronic thrombocytopenia Special Instructions: 1. Please follow up with your primary care physician in one week. 2. Please follow up with your billet driller in one week. Of note your eliquis was on hold since your platelet count was low. 3. Please follow up with your shoe sticks repairer/ oncologist within one week regarding your multiple myeloma chemotherapy. 4. Have a repeat Complete blood count test during your shoe sticks repairer/oncologist visit on Monday11/08/17 to monitor your platelet count for thrombocytopenia with him during your appointment on Monday11/08/17. 5. Please follow up with your video game animator in one week. Diet Continue normal diet: Yes Recommended Diet: Regular Activity Activity Self Limited: Yes Acute Coronary Syndrome Inclusion Criteria At DC or during hospital stay patient has or had the following: ACS DIAGNOSIS No Discharge Core Measures Meds if any: Prescribed or Continued at Discharge Meds if any: NOT Prescribed or Continued at Discharge Congestive Heart Failure Inclusion Criteria At DC or during hospital stay patient has or had the following: CHF DIAGNOSIS No Discharge Core Measures Meds if any: Prescribed or Continued at Discharge Meds if any: NOT Prescribed or Continued at Discharge Cerebrovascular accident Inclusion Criteria At DC or during hospital stay patient has or had the following: CVA/TIA Diagnosis No Discharge Core Measures Meds if any: Prescribed or Continued at Discharge Meds if any: NOT Prescribed or Continued at Discharge Venous thromboembolism Inclusion Criteria VTE Diagnosis No VTE Type NONE VTE Confirmed by (Test) NONE Discharge Core Measures - Per Current guidelines, there needs to be overlap - treatment for the first 5 days of Warfarin therapy. - If discharged on Warfarin prior to 5 days of - overlap therapy, the patient will need to be - assessed for post discharge needs including - *Post discharge parental anticoagulation - *Warfarin and/or parental anticoagulation education - *Follow up date to check INR post discharge At least 5 days overlap therapy as Inpatient No Meds if any: Prescribed or Continued at Discharge Note: Overlap Therapy is Warfarin and Anticoagulant Meds if any: NOT Prescribed or Continued at Discharge
[2017-11-01] MEDS ORDERED: CEFTRIAXONE2 G2 IV (15:23)
[2017-11-01 15:33] VITALS: BP 110/68
[2017-11-01 21:40] VITALS: BP 118/82
--- NOTE | 2017-11-01 22:22 | Event Note ---
Event Note Event Note: S: Approximately 10:15 pm RN called a rapid response because patient seemed confused. Patient was able to say his say full name but was unable to recall his date. at bedside. Patient was asked several times his date but was noncommunicative. then asked patient multiple times his birthday with no response. Vitals: BP-120/70, HR- 84 O2-88% on room air. Repeat O2 sat 94% on 1LNC. Physical exam: AO3, +S1/S2, clear lungs, cranial nerves II-12 intact B: Mr Grant is a 66-year-old gentleman with history of Afib on Eliquis, multiple myeloma (cyclophosphamide, bortezomib, dexamethasone + EPO-last chemo 10/18/2017), thrombocytopenia (baseline 80-90s) suspected to be medication-induced, previously on hemodialysis, end-stage renal disease and currently on peritoneal dialysis came to the hospital with a chief concern of confusion, hypotension. He was initially admitted to telemetry floor and transferred to ICU for hypotension requiring central line and vasopressors for sepsis thought to be 2/2 meningitis, and or PNA, with blood cultures showing growth of Strep Pneumo. He was started on Vanc and Ceftriaxone and subsequently narrowed down to Ceftriaxone after sensitivities for Strep Pneumo came back being sensitive to penicillin. He was then trasnferred to [facility] stable for further management. A/R: Patient is currently being treated for strep pneumonia currently on IV antibiotics, it is unclear the etiology of his confusion but patient was admitted with confusion. His Eliquis is currently on hold due to significant thrombocytopenia as per cardiovascular recommendations. Patient is currently stable * Stat CBC and BEP, CXR, ABG * no narcotics during the night
[2017-11-01 22:46] LABS: ABSOLUTE BASOPHIL COUNT 0 /CUMM (0.0-0.2); ABSOLUTE EOSINOPHIL COUNT 0 /CUMM (0.0-0.7); ABSOLUTE GRANULOCYTE CT 8.5 /CUMM (1.4-6.5); ABSOLUTE LYMPH COUNT 0.9 /CUMM (1.2-3.4); ABSOLUTE MONOCYTE COUNT 0.6 /CUMM (0.10-0.60); BASOPHIL % 0.2 % (0.0-2.0); EOSINOPHIL % 0.1 % (0-5); HEMATOCRIT 31.3 % (42-52); MEAN CORPUSCULAR HGB 31.1 PG (27.0-31.0); MEAN CORPUSCULAR VOLUME 97.1 FL (80.0-94.0); MEAN PLATELET VOLUME 8.9 FL (7.4-10.4); RBC DISTRIBUTION WIDTH 17.9 % (11.5-14.5); RED BLOOD CELL CT 3.22 /CUMM (4.70-6.10)
[2017-11-01 23:03] LABS: GRANULOCYTE % 84.7 % (42.2-75.2); PLATELET COUNT 36 /CUMM (130-400)
--- NOTE | 2017-11-01 23:25 | RADIOLOGY REPORT ---
EXAMINATION: XR PORTABLE CHEST CLINICAL INFORMATION: Desaturation. Altered mental status. COMPARISON: 10/27/2017 TECHNIQUE: Portable frontal view of the chest was obtained. FINDINGS: Lung volumes are low. Left perihilar opacity is again noted, somewhat improved compared to the previous study and most suggestive of atelectasis. There is persistent blunting at the left costophrenic angle suggesting a small pleural effusion. No pneumothorax. The cardiomediastinal silhouette is unchanged. IMPRESSION: Left perihilar opacity which is improving from prior, most suggestive of atelectasis. Small left pleural effusion.
[2017-11-02 06:20] VITALS: BP 124/70
--- NOTE | 2017-11-02 07:23 | PN- Oncology ---
Subjective Subjective: Offensive last night reviewed, currently patient is conversant Patient denies headaches or focal neurologic deficit Patient denies shortness of breath cough chest pain or hemoptysis. Patient denies nausea vomiting diarrhea change in bowel habits. Patient denies bone aches that are new Objective Vital Signs and I&Os Vital Signs Date Time Temp Pulse Resp B/P B/P Pulse O2 O2 Flow FiO2 Mean Ox Delivery Rate 11/02 0620 98.0 70 18 124/70 93 Room Air 11/02 0000 Nasal 2.0L Cannula 11/01 2226 84 120/70 11/01 2140 96.8 68 20 118/82 92 11/01 1533 99.6 79 18 110/68 94 11/01 0845 72 110/80 11/01 0800 Room Air Intake & Output 11/02 0800 11/02 0000 11/01 1600 11/01 0800 11/01 0000 10/31 1600 Intake Total 4450 360 360 Output Total 7000 50 50 450 0 Balance -2550 -50 310 -90 0 Intake, 4200 Dialysate Intake, Oral 250 360 360 Number 1 Bowel Movements Output, 7000 50 50 450 0 Dialysate Patient 179 lb Weight Weight Bed scale Measurement Method Gen.: in NAD ENT: Sclera anicteric Chest: Normal respiratory effort, clear reath sounds Cor: RRR, no extra sounds Abdomen: Soft, bowel sounds present, no tenderness, no rebound Extremities: Without clubbing, cyanosis, or edema Neurology: Awake slightly confused, no gross deficit Skin: No rashes Current Medications: Current Medications Sig/Christie Start time Last Medication Dose Route Stop Time Status Admin Carvedilol 3.125 MG BID 10/31 1055 AC 11/01 PO 2226 Ceftriaxone Sodium 2,000 MG 10/27 2100 AC 11/01 IV 2228 Hydrocortisone 50 MG BID 11/01 2100 AC 11/01 Sodium Succinate IV 2228 Hydrocortisone 50 MG Q8 10/30 1400 DC 11/01 Sodium Succinate IV 0644 Lubiprostone 24 MCG BID 10/25 220 AC 11/01 PO 222 Magnesium Oxide 400 MG DAILY 10/25 1611 AC 11/01 PO 0845 Midodrine 7.5 MG Q8 10/29 1400 AC 11/02 PO 0619 Multivitamins 1 TAB DAILY 10/26 1000 AC 11/01 PO 0845 Oxycodone HCl 10 MG Q4-6 PRN PRN 10/275 DC 11/01 PO 1608 Oxycodone HCl 20 MG 0900,2100 / 0900 AC 11/01 PO 0848 Polyethylene Glycol 17 GM DAILY 10/27 1645 AC 11/01 PO 0846 Prochlorperazine 10 MG Q6 PRN 10/25 1615 AC PO Senna/Docusate Sodium 1 TAB BID PRN 10/27 1645 AC 10/30 PO 2114 Sevelamer Carbonate 3,200 MG WM 10/25 1700 AC 11/01 PO 1703 Sevelamer Carbonate 1,600 MG TID PRN 10/25 1615 AC PO Assessment/Plan Assessment/Recommendations: 1. Sepsis-most parameters suggest clinical stability, antibiotics as per ID service 2. Multiple myeloma-chemotherapy on hold 3. Thrombocytopenia-unchanged 4. Confusion-the patient has been intermittently confused since admission. It would seem unlikely that the patient had acute RESTAURANT FRONT MANAGER hemorrhage. His confusion may be multifactorial including renal failure and narcotic use. Recommend- For now break through oxycodone Follow exam closely If any deterioration, CT scan of head
--- NOTE | 2017-11-02 07:40 | PN- Housestaff ---
HuyAmelia 11/02/17 0739: Subjective Follow-up For: - Septic shock 2/2 Strep Pneumo - PNA vs meningitis - ESRD on PD - Acute on chronic anemia 2/2 ESRD, and MM s/p 2 units of PRBC x2 - Multiple myleoma on chemo - currently on hold - Acuet on chronic back pain - Type II IA - Hx of chronic afib on Eliquis - on hold - Acute on chronic thrombocytopenia - Intermittent epsiode of confusion 2/2 pain medication and uremia Subjective: Patient seen and examined at bedside. He had a rapid response last night, because of altered confusion and intermittent episodes of confusion. This AM he looks lethargic, and states he feels tired, but is oreinted x3, with no neurological deficits. Patient's did mention he hadnt eaten anything yesterday. Vitlas pertinent for Tmax past 24 hrs 99.6F @3:55pm. Review of Systems Constitutional: Reports: weakness. Denies: chills, fever. EENTM: Denies: visual changes. Cardiovascular: Denies: chest pain, orthopena, palpitations, peripheral edema, syncope. Respiratory: Denies: cough, orthopnea, short of breath, sputum production, wheezing. Gastrointestinal: Denies: abdominal pain, constipation, diarrhea, nausea, vomiting. Genitourinary: Reports: no symptoms. Musculoskeletal: Reports: no symptoms. Neurological/Psychological: Denies: headache, numbness, tingling, tremors. Objective Last 24 Hrs of Vital Signs/I&O Vital Signs Date Time Temp Pulse Resp B/P B/P Pulse O2 O2 Flow FiO2 Mean Ox Delivery Rate 11/02 0620 98.0 70 18 124/70 93 Room Air 11/02 0000 Nasal 2.0L Cannula 11/01 2227 84 120/70 11/01 2140 96.8 68 20 118/82 92 11/01 1533 99.6 79 18 110/68 94 11/01 0845 72 110/80 11/01 0800 Room Air Intake & Output 11/02 0800 11/02 0000 11/01 1600 Intake Total 4450 Output Total 7000 50 Balance -2550 -50 Intake, 4200 Dialysate Intake, Oral 250 Number Bowel Movements Output, 7000 50 Dialysate Patient 179 lb Weight Weight Bed scale Measurement Method Physical Exam General Appearance: Oriented X3, Cooperative, No Acute Distress, lethargic Skin Temp/Moisture Exam: Warm/Dry HEENT: Atraumatic, PERRLA, EOMI, Mucous Membr. moist/pink Neck: Supple, No JVD, No LAD Cardiovascular: Normal S1, Normal S2, No Murmurs, irregularly irregular Lungs: Clear to Auscultation, Normal Air Movement Abdomen: Normal Bowel Sounds, Soft, No Tenderness, has a pertioneal dialysis catheter in place. Neurological: Normal Speech, Strength at 5/5 X4 Ext, Normal Tone, Sensation Intact, Cranial Nerves 3-12 NL, Reflexes 2+ Extremities: No Edema, Normal Pulses Current Medications: Current Medications Sig/Christie Start time Last Medication Dose Route Stop Time Status Admin Carvedilol 3.125 MG BID 10/31 1055 AC 11/01 PO 2227 Ceftriaxone Sodium 2,000 MG 10/27 2100 AC 11/01 IV 2228 Hydrocortisone 50 MG BID 11/01 2100 AC 11/01 Sodium Succinate IV 2228 Hydrocortisone 50 MG Q8 10/30 1400 DC 11/01 Sodium Succinate IV 0644 Lubiprostone 24 MCG BID 10/25 2200 AC 11/01 PO 2227 Magnesium Oxide 400 MG DAILY 10/25 1611 AC 11/01 PO 0845 Midodrine 7.5 MG Q8 10/29 1400 AC 11/02 PO 0619 Multivitamins 1 TAB DAILY 10/26 1000 AC 11/01 PO 0845 Oxycodone HCl 10 MG Q4-6 PRN PRN 10/27 2045 DC 11/01 PO 1608 Oxycodone HCl 20 MG 0900,10/26 0900 AC 11/01 PO 0848 Polyethylene Glycol 17 GM DAILY 10/27 1645 AC 11/01 PO 0846 Prochlorperazine 10 MG Q6 PRN 10/25 1615 AC PO Senna/Docusate Sodium 1 TAB BID PRN 10/27 1645 AC 10/30 PO 2114 Sevelamer Carbonate 3,200 MG WM 10/25 1700 AC 11/01 PO 1703 Sevelamer Carbonate 1,600 MG TID PRN 10/25 1615 AC PO Last 24 Hrs of Lab/Tyler Results Last 24 Hrs of Labs/Mics: Laboratory Tests 11/01/17 2300: pH 7.50 H, pCO2 30 L, pO2 78 L, HCO3 23, ABG O2 Sat (Measured) 94.0 L, Carboxyhemoglobin 0.3 L, O2 Concentration % 1L, O2 Delivery Method NC, Phlebotomy Draw Site RIGHT RADIAL 11/01/17 2230: Anion Gap 12, Estimated GFR 5 L, BUN/Creatinine Ratio 10.1, Glucose 119 H, Calcium 8.4, Phosphorus 6.7 H, Magnesium 2.3, Troponin I 0.16 *H 11/01/17 2210: CBC w Diff NO MAN DIFF REQ, RBC 3.22 L, MCV 97.1 H, MCH 31.1 H, MCHC 32.0 L, RDW 17.9 H, MPV 8.9, Gran % 84.7 H, Lymphocytes % 8.5 L, Monocytes % 6.5, Eosinophils % 0.1, Basophils % 0.2, Absolute Granulocytes 8.5 H, Absolute Lymphocytes 0.9 L, Absolute Monocytes 0.6, Absolute Eosinophils 0, Absolute Basophils 0 11/01/17 0810: Anion Gap 14, Estimated GFR 5 L, BUN/Creatinine Ratio 10.1, PT 10.7, INR 0.98, CBC w Diff MAN DIFF ORDERED, RBC 3.00 L, MCV 96.2 H, MCH 32.2 H, MCHC 33.4, RDW 17.7 H, MPV 8.3, Gran % 90.6 H, Lymphocytes % 6.6 L, Monocytes % 2.8, Eosinophils % 0, Basophils % 0, Absolute Granulocytes 8.9 H, Segmented Neutrophils 86 H, Absolute Lymphocytes 0.6 L, Lymphocytes 7 L, Monocytes 6, Absolute Monocytes 0.3, Absolute Eosinophils 0, Absolute Basophils 0, Myelocytes 1 H, Nucleated RBCs 1 H, Platelet Estimate DECREASED, Hypochromic-Microcytic 1 +, Poikilocytosis FEW, Anisocytosis 1+, Ovalocytes 1+ Orders Radiology Findings: FINDINGS: Lung volumes are low. Left perihilar opacity is again noted, somewhat improved compared to the previous study and most suggestive of atelectasis. There is persistent blunting at the left costophrenic angle suggesting a small pleural effusion. No pneumothorax. The cardiomediastinal silhouette is unchanged. IMPRESSION: Left perihilar opacity which is improving from prior, most suggestive of atelectasis. Small left pleural effusion. Assessment/Plan Assessment: Mr Grant is a 66-year-old gentleman with history of multiple myeloma ( cyclophosphamide, bortezomib, dexamethasone + E Po-last chemo 10/18/2017), previously on hemodialysis, end-stage renal disease and currently on peritoneal dialysis came to the hospital with a chief concern of confusion, hypotension. He was initially admitted to telemetry floor and transferred to ICU for hypotension requiring central line and vasopressors for sepsis thought to be 2/2 meningitis, and or PNA, with blood cultures showing growth of Strep Pneumo. He was started on Vanc and Ceftriaxone and subsequently narrowed down to Ceftriaxone after sensitivities for Strep Pneumo came back being sensitive to penicillin. He was then trasnferred to [facility] for further management. Assessment and Plan: # Septic shock sec to strep pneumonia - Patient was transferred from telemetry to ICU for persistent hypotension, fever, gram positive cocci bacteremia. Patient was found to have fever, hypotension, headache, neck stiffness with gram-positive bacteremia. Possible differentials at that time were meningitis versus pneumonia versus peritoneal fluid infection given cloudy peritoneal fluid. Patient blood cultures are positive for strep pneumonia sensitive to penicillin. CAT scan chest was done which showed multi lolobar areas of consolidation consistent with pneumonia and/ or atelectasis. These are in a similar distribution to that seen in 2017 but are worse. New area of groundglass opacity apex right upper lobe. Initially patient was started on ceftriaxone 2 g daily and vancomycin 1 g daily to cover strep pneumonia, meningitis. Later blood culture turned out strep pneumonia, patient was continued on ceftriaxone 2 g daily for strep pneumonia. Vancomycin was discontinued. Patient remained afebrile with normal WBC count. Patient was also continued on acyclovir prophylactic dose. - He will require 2g of Cetriaxone for possible meningitis for a total for 10 days (through 11/05/17). ID recs appreciated. - No plans for palcement of PICC line. #Lethargy and confusion Patient looks lethragic and had intermitetnt episodes of confusion last evening where he was unable to recall hsi birthdate etc. His neuro exam was unremarkable , hwoeever he was hypoxic to 88% on room air. A CXR showed left perihilar opacity which is improving from prior, most suggestive of atelectasis. Small left pleural effusion. Patient was also receiving breakthrough Bryanna, whihc we discontinued. Of note his ocnfusion could also be 2/2 uremia, given his elevated BUN and the change in frequency of his dialysis. Will speak with nephro regarding changing the frequency or juan dialysate fluid. Meanwhile will check serum ammonia. Doubt he had an embloic event, as no neuro deficits identified, hwoever will place on NIH stroke sclae q8 hrs, and advised pt's to inform juan nurses if she notices any abrupt change. # Hypotension - Stable. Patient was found to have persistent hypotension with SBP varying between 60-70 on admission. He was transferred from telemetry to ICU for central line placement and hypotension management. Right IJ central line was placed, started on levophed. Later levophed was titrated off once his SBP was 90. Off note his baseline blood pressure varies between 80-90. Triple lumen catheter was removed on 10/27/2017 at bedside with the no complications. - Patient was also started on midodrine 5 mg 3 times daily for hypotension,as well as hydrocortisone 100 mg every 8 hours, which was tapered to 50 mg every 12 hours. Holding further plAns of tapering, since his platelet count dropped ( doubt it is ITP). - His blood pressure has remained stable since we resumed his home dose fo Carvedilol. # Acute on chronic thrombocytopenia - Patient's platelet count took a marielena from 88-->47-->36 (repeat) and since tehn have remained stable. - Most likely drug induced (?B-lactam). Workup for DIC was negative, and heparin antibody panel was negative. - Will discuss with ID regarding Abx. # Acute on chronic anemia s/p tx with 2 PRBC - H&H stable. Thsi AM labs pending - Patient received 2 units of PRBCs. - Goal H&H > 8/25 - Of note his stools were quiac negative. - Continue to monitor hemoglobin # End-stage renal disease on peritoneal dialysis Peritoneal dialysis as per per diem physical therapist recommendations. D/C Heparin 2000 units per dialysis bag, as per per diem physical therapist. Monitor for electrolyte shifts. D/C peritoneal fluid cell count and cultures monitoring. F/U with nephro regarding freequency and the dialysate fluid. # Pain Management/ multiple myeloma (cyclophosphamide, bortezomib, dexamethasone + E Po-last chemo 10/18/2017) Hold Oxycodone PRN for now. Will oprder lidoderm patch PRN. Meanwhile, will palce a one t8ime order of OxyContin 10mg for now and then continue 20mg BID ( starting tonight) at home dose for back pain. MRI of total spine was done that showed interval collapse of the T4 vertebral body and there may be mild associated bone marrow edema as well. Paroxysmal atrial fibrillation - Currently rate controlled. - Resumed Co-reg. - Meanwhile continue to hold Eliquis given thromobocytopenia # Type II IA - Elevated troponin and no EKG changes possibly from demand supply mismatch and hypotension DVT prophylaxis On alps given thrombocytopenia Diet-reg diet Patient's family refused renal dialysis diet Code Status Full Code Problem List: 1. History of multiple myeloma 2. History of renal failure Pain Ratin Pain Location: back pain Pain Goal: Remain pain free Pain Plan: oxycontin 20mg BID, Lidoderm patch Tomorrow's Labs & Rationales: CBC - Platelet count, BEP: BUN; LFTs Consulting Request: Consulting Specialty: Nephrology Isidro Echeverria MD 11/02/17 6452: Attending MD Review Statement Attending Statement Attending MD Statement: examined this patient, discuss w/resident/PA/[employer], agreed w/resident/PA/[employer], discussed with family, reviewed EMR data (avail), discussed with nursing, discussed with case mgmt, amended to note Attending Assessment/Plan: The patient was seen and discussed with house staff, nursing, family () and case management. Events of last pm noted with period of delirium . Most likely secondary to narcotics along with hypoxemia and azotemia. Will decrease narcotics (if pain allows) and follow.
--- NOTE | 2017-11-02 08:54 | PN- Cardiology ---
Subjective Subjective: Patient feels well without chest pains. Apparently last night with an episode of confusion. This might have been related to the pain medications. He is alert and awake now. No fever. Objective Vital Signs and I&Os Vital Signs Date Time Temp Pulse Resp B/P B/P Pulse O2 O2 Flow FiO2 Mean Ox Delivery Rate 11/02 0620 98.0 70 18 124/70 93 Room Air 11/02 0000 Nasal 2.0L Cannula 11/01 2226 84 120/70 11/01 2140 96.8 68 20 118/82 92 11/01 1533 99.6 79 18 110/68 94 11/01 0845 72 110/80 Intake & Output 11/02 1600 11/02 0800 11/02 0000 11/01 1600 11/01 0800 11/01 0000 Intake Total 240 4450 360 360 Output Total 0 7000 50 50 450 Balance 240 -2550 -50 310 -90 Intake, 4200 Dialysate Intake, Oral 240 250 360 360 Number 1 Bowel Movements Output, 0 7000 50 50 450 Dialysate Patient 179 lb Weight Weight Bed scale Measurement Method Physical Exam: On physical exam patient appeared comfortable laying in bed. Head normocephalic atraumatic Eyes sclera anicteric conjunctiva showed no pallor extraocular muscles are normal Chest lungs are clear bilaterally Heart regular rhythm with a 1/6 systolic murmur Abdomen soft no organomegaly bowel sounds normal Extremities no clubbing cyanosis or edema. Neurological no gross motor or sensory deficits Current Medications: Current Medications Sig/Christie Start time Last Medication Dose Route Stop Time Status Admin Carvedilol 3.125 MG BID 10/31 1055 AC 11/01 PO 2227 Ceftriaxone Sodium 2,000 MG 10/27 2100 AC 11/01 IV 2228 Hydrocortisone 50 MG BID 11/01 2100 AC 11/01 Sodium Succinate IV 2228 Hydrocortisone 50 MG Q8 10/30 1400 DC 11/01 Sodium Succinate IV 0644 Lubiprostone 24 MCG BID 10/25 2200 AC 11/01 PO 2227 Magnesium Oxide 400 MG DAILY 10/25 1611 AC 11/01 PO 0845 Midodrine 7.5 MG Q8 10/29 1400 AC 11/02 PO 0619 Multivitamins 1 TAB DAILY 10/26 1000 AC 11/01 PO 0845 Oxycodone HCl 10 MG Q4-6 PRN PRN 10/27 2045 DC 11/01 PO 1608 Oxycodone HCl 20 MG 0900,2100 10/26 0900 AC 11/01 PO 0848 Polyethylene Glycol 17 GM DAILY 10/27 1645 AC 11/01 PO 0846 Prochlorperazine 10 MG Q6 PRN 10/25 1615 AC PO Senna/Docusate Sodium 1 TAB BID PRN 10/27 1645 AC 10/30 PO 2114 Sevelamer Carbonate 3,200 MG WM 10/25 1700 AC 11/01 PO 1703 Sevelamer Carbonate 1,600 MG TID PRN 10/25 1615 AC PO Results Last 48 Hrs of Labs/Mics: Laboratory Tests 11/01/17 2300: pH 7.50 H, pCO2 30 L, pO2 78 L, HCO3 23, ABG O2 Sat (Measured) 94.0 L, Carboxyhemoglobin 0.3 L, O2 Concentration % 1L, O2 Delivery Method NC, Phlebotomy Draw Site RIGHT RADIAL 11/01/17 2230: Anion Gap 12, Estimated GFR 5 L, BUN/Creatinine Ratio 10.1, Glucose 119 H, Calcium 8.4, Phosphorus 6.7 H, Magnesium 2.3, Troponin I 0.16 *H 11/01/17 2210: CBC w Diff NO MAN DIFF REQ, RBC 3.22 L, MCV 97.1 H, MCH 31.1 H, MCHC 32.0 L, RDW 17.9 H, MPV 8.9, Gran % 84.7 H, Lymphocytes % 8.5 L, Monocytes % 6.5, Eosinophils % 0.1, Basophils % 0.2, Absolute Granulocytes 8.5 H, Absolute Lymphocytes 0.9 L, Absolute Monocytes 0.6, Absolute Eosinophils 0, Absolute Basophils 0 11/01/17 0810: Anion Gap 14, Estimated GFR 5 L, BUN/Creatinine Ratio 10.1, PT 10.7, INR 0.98, CBC w Diff MAN DIFF ORDERED, RBC 3.00 L, MCV 96.2 H, MCH 32.2 H, MCHC 33.4, RDW 17.7 H, MPV 8.3, Gran % 90.6 H, Lymphocytes % 6.6 L, Monocytes % 2.8, Eosinophils % 0, Basophils % 0, Absolute Granulocytes 8.9 H, Segmented Neutrophils 86 H, Absolute Lymphocytes 0.6 L, Lymphocytes 7 L, Monocytes 6, Absolute Monocytes 0.3, Absolute Eosinophils 0, Absolute Basophils 0, Myelocytes 1 H, Nucleated RBCs 1 H, Platelet Estimate DECREASED, Hypochromic-Microcytic 1 +, Poikilocytosis FEW, Anisocytosis 1+, Ovalocytes 1+ 10/31/171999: CBC w Diff NO MAN DIFF REQ, RBC 3.25 L, MCV 96.9 H, MCH 31.3 H, MCHC 32.3 L, RDW 18.3 H, MPV 8.7, Gran % 90.2 H, Lymphocytes % 6.8 L, Monocytes % 2.4, Eosinophils % 0.1, Basophils % 0.5, Absolute Granulocytes 10.1 H, Absolute Lymphocytes 0.8 L, Absolute Monocytes 0.3, Absolute Eosinophils 0, Absolute Basophils 0.1 10/31/17 1415: Heparin-induced Plt Ab NEGATIVE, Heparin-PF4 AB OD 0.010 10/31/17 1137: PT 10.4, INR 0.95, APTT 26, Fibrinogen Activity 701 H, D-Dimer High Sensitivty 2115 H, CBC w Diff NO MAN DIFF REQ, RBC 3.12 L, MCV 96.4 H, MCH 32.3 H, MCHC 33.5, RDW 18.1 H, MPV 9.2, Gran % 92.2 H, Lymphocytes % 5.7 L, Monocytes % 1.9, Eosinophils % 0, Basophils % 0.2, Absolute Granulocytes 9.9 H, Absolute Lymphocytes 0.6 L, Absolute Monocytes 0.2, Absolute Eosinophils 0, Absolute Basophils 0 Assessment/Plan Assessment/Plan 1. Hypotension, improved 2. Multiple myeloma 3. Anemia requiring transfusion 4. Paroxysmal atrial fibrillation on low-dose eliquis and with implantable loop recorder 5. End-stage renal disease on peritoneal dialysis 6. History of hypertension on outpatient low-dose coreg 7. Elevated troponin due to end-stage renal disease and hypotension 8. Septic shock/bacteremia 9. Thrombocytopenia He is off anticoagulants. He is on low-dose carvedilol. Minimal confusion last night probably related to pain medications. No cardiac issues at the moment. Continue telemetry? Not applicable
[2017-11-02 09:36] LABS: ABSOLUTE BASOPHIL COUNT 0 /CUMM (0.0-0.2); ABSOLUTE EOSINOPHIL COUNT 0 /CUMM (0.0-0.7); ABSOLUTE GRANULOCYTE CT 7.3 /CUMM (1.4-6.5); ABSOLUTE LYMPH COUNT 0.6 /CUMM (1.2-3.4); ABSOLUTE MONOCYTE COUNT 0.2 /CUMM (0.10-0.60); BASOPHIL % 0.1 % (0.0-2.0); EOSINOPHIL % 0.3 % (0-5); HEMATOCRIT 29.4 % (42-52); MEAN CORPUSCULAR HGB 31.9 PG (27.0-31.0); MEAN CORPUSCULAR HGB CONC 32.8 G/DL (33.0-37.0); MEAN CORPUSCULAR VOLUME 97.3 FL (80.0-94.0); MEAN PLATELET VOLUME 8.8 FL (7.4-10.4); RBC DISTRIBUTION WIDTH 17.6 % (11.5-14.5); RED BLOOD CELL CT 3.03 /CUMM (4.70-6.10); WHITE BLOOD CELL COUNT 8.2 /CUMM (4.8-10.8)
--- NOTE | 2017-11-02 10:40 | PN- Nephrology ---
Assessment/Plan Nephrology Assessment: Well dialyzed and would keep him on 7,12,7 10PM schedule. Increased BUN due to steroids. Suggestion: No changes. Would minimize narcotics. Subjective Subjective: Had some confusion last night but none at present. Getting narcotics, poor sleep all of which may be contributing. Objective Vital Signs and I&Os Vital Signs Date Time Temp Pulse Resp B/P B/P Pulse O2 O2 Flow FiO2 Mean Ox Delivery Rate 11/02 921 70 110/60 11/02 0620 98.0 70 18 124/70 93 Room Air 11/02 0000 Nasal 2.0L Cannula 11/01 2226 84 120/70 11/01 2140 96.8 68 20 118/82 92 11/01 1533 99.6 79 18 110/68 94 Intake & Output 11/02 1600 11/02 0400 11/01 1600 11/01 0400 10/31 1600 10/31 0400 Intake Total 240 4450 360 482 85 1543 Output Total 0 7000 100 000 191 7469 Balance 240 -2550 260 -90 -130 400 Intake, 4200 2100 Dialysate Intake, IV 20 Intake, Oral 240 250 360 360 50 200 Number 1 Bowel Movements Output, 0 7000 100 190 864 9370 Dialysate Patient 179 lb 191 lb Weight Weight Bed scale Bed scale Measurement Method Physical Exam: NAD VS as above Lungs:clear CV: no rub Abd: nontender Exts: 1+ dependent edema Neuro: A&O Current Medications: Current Medications Sig/Christie Start time Last Medication Dose Route Stop Time Status Admin Carvedilol 3.125 MG BID 10/31 1055 AC 11/02 PO 09 Ceftriaxone Sodium 2,000 MG 10/27 2100 AC 11/01 IV 2228 Hydrocortisone 50 MG BID 11/01 2100 AC 11/02 Sodium Succinate IV 0921 Lidocaine 1 PAT DAILY PRN 11/02 0945 AC EXT Lubiprostone 24 MCG BID 10/25 2200 AC 11/02 PO 0924 Magnesium Oxide 400 MG DAILY 10/25 1611 AC 11/02 PO 0922 Midodrine 7.5 MG Q8 10/29 1400 AC 11/02 PO 0619 Multivitamins 1 TAB DAILY 10/26 1000 AC 11/02 PO 0922 Oxycodone HCl 10 MG ONCE ONE 11/02 0815 DC 11/02 PO 11/03 915 0923 Oxycodone HCl 10 MG Q4-6 PRN PRN 10/27 2045 DC 11/01 PO 1608 Oxycodone HCl 20 MG 0900,2100 10/26 0900 AC 11/01 PO 0848 Polyethylene Glycol 17 GM DAILY 10/27 1645 AC 11/02 PO 0921 Prochlorperazine 10 MG Q6 PRN 10/25 1615 AC PO Senna/Docusate Sodium 1 TAB BID PRN 10/27 1645 AC 10/30 PO 2114 Sevelamer Carbonate 3,200 MG WM 10/25 1700 AC 11/01 PO 1703 Sevelamer Carbonate 1,600 MG TID PRN 10/25 1615 AC PO Results Pertinent Lab Results: Laboratory Tests 11/02 11/01 11/01 11/01 0642 2300 2230 2210 Blood Gas pH (7.35 - 7.45 PH) 7.50 H pCO2 (35 - 45 TORR) 30 L pO2 (80 - 100 TORR) 78 L HCO3 (21 - 28 MEQ/L) 23 ABG O2 Sat (Measured) (>96.0 %) 94.0 L Carboxyhemoglobin (1.5 - 5.0 %) 0.3 L O2 Concentration % 1L O2 Delivery Method NC Chemistry Sodium (137 - 145 mmol/L) 136 L 133 L Potassium (3.5 - 5.1 mmol/L) 4.3 3.6 Chloride (98 - 107 mmol/L) 95 L 94 L Carbon Dioxide (22 - 30 mmol/L) 25 27 Anion Gap (5 - 16) 15 12 BUN (9 - 20 mg/dL) 101 *H 99 H Creatinine (0.7 - 1.2 mg/dL) 9.8 *H 9.8 *H Estimated GFR (>60 ml/min) 5 L 5 L BUN/Creatinine Ratio (7 - 25 %) 10.3 10.1 Glucose (65 - 99 mg/dL) 119 H Calcium (8.4 - 10.2 mg/dL) 8.4 Phosphorus (2.5 - 4.5 mg/dL) 6.7 H Magnesium (1.6 - 2.3 mg/dL) 2.3 Troponin I (<0.11 ng/ml) 0.16 *H Hematology CBC w Diff Pending NO MAN DIFF REQ WBC (4.8 - 10.8 /CUMM) Pending 10.0 RBC (4.70 - 6.10 /CUMM) Pending 3.22 L Hgb (14.0 - 18.0 G/DL) Pending 10.0 L Hct (42 - 52 %) Pending 31.3 L MCV (80.0 - 94.0 FL) Pending 97.1 H MCH (27.0 - 31.0 PG) Pending 31.1 H MCHC (33.0 - 37.0 G/DL) Pending 32.0 L RDW (11.5 - 14.5 %) Pending 17.9 H Plt Count (130 - 400 /CUMM) Pending 36 L MPV (7.4 - 10.4 FL) Pending 8.9 Gran % (42.2 - 75.2 %) Pending 84.7 H Lymphocytes % (20.5 - 51.1 %) Pending 8.5 L Monocytes % (1.7 - 9.3 %) Pending 6.5 Eosinophils % (0 - 5 %) Pending 0.1 Basophils % (0.0 - 2.0 %) Pending 0.2 Absolute Granulocytes (1.4 - 6.5 /CUMM) Pending 8.5 H Absolute Lymphocytes (1.2 - 3.4 /CUMM) Pending 0.9 L Absolute Monocytes (0.10 - 0.60 /CUMM) Pending 0.6 Absolute Eosinophils (0.0 - 0.7 /CUMM) Pending 0 Absolute Basophils (0.0 - 0.2 /CUMM) Pending 0 Miscellaneous Phlebotomy Draw Site RIGHT RADIAL 11/01 10/31 0810 2000 Chemistry Sodium (137 - 145 mmol/L) 135 L Potassium (3.5 - 5.1 mmol/L) 3.9 Chloride (98 - 107 mmol/L) 95 L Carbon Dioxide (22 - 30 mmol/L) 26 Anion Gap (5 - 16) 14 BUN (9 - 20 mg/dL) 98 H Creatinine (0.7 - 1.2 mg/dL) 9.7 *H Estimated GFR (>60 ml/min) 5 L BUN/Creatinine Ratio (7 - 25 %) 10.1 Coagulation PT (9.4 - 12.5 SEC) 10.7 INR (0.90 - 1.17) 0.98 Hematology CBC w Diff MAN DIFF ORDERED NO MAN DIFF REQ WBC (4.8 - 10.8 /CUMM) 9.8 11.2 H RBC (4.70 - 6.10 /CUMM) 3.00 L 3.25 L Hgb (14.0 - 18.0 G/DL) 9.6 L 10.2 L Hct (42 - 52 %) 28.8 L 31.5 L MCV (80.0 - 94.0 FL) 96.2 H 96.9 H MCH (27.0 - 31.0 PG) 32.2 H 31.3 H MCHC (33.0 - 37.0 G/DL) 33.4 32.3 L RDW (11.5 - 14.5 %) 17.7 H 18.3 H Plt Count (130 - 400 /CUMM) 44 L 39 L MPV (7.4 - 10.4 FL) 8.3 8.7 Gran % (42.2 - 75.2 %) 90.6 H 90.2 H Lymphocytes % (20.5 - 51.1 %) 6.6 L 6.8 L Monocytes % (1.7 - 9.3 %) 2.8 2.4 Eosinophils % (0 - 5 %) 0 0.1 Basophils % (0.0 - 2.0 %) 0 0.5 Absolute Granulocytes (1.4 - 6.5 /CUMM) 8.9 H 10.1 H Segmented Neutrophils (42.2 - 75.2 %) 86 H Absolute Lymphocytes (1.2 - 3.4 /CUMM) 0.6 L 0.8 L Lymphocytes (20.5 - 51.1 %) 7 L Monocytes (1.7 - 9.3 %) 6 Absolute Monocytes (0.10 - 0.60 /CUMM) 0.3 0.3 Absolute Eosinophils (0.0 - 0.7 /CUMM) 0 0 Absolute Basophils (0.0 - 0.2 /CUMM) 0 0.1 Myelocytes (0 - 0 %) 1 H Nucleated RBCs (0.0 - 0.0 /100WBC) 1 H Platelet Estimate (ADEQUATE) DECREASED Hypochromic-Microcytic 1+ Poikilocytosis FEW Anisocytosis 1+ Ovalocytes 1+ 10/31 10/31 1415 1137 Coagulation PT (9.4 - 12.5 SEC) 10.4 INR (0.90 - 1.17) 0.95 APTT (25 - 37 SEC) 26 Fibrinogen Activity (200 - 393 MG/DL) 701 H D-Dimer High Sensitivty (0 - 243 ng/ml) 2115 H Hematology CBC w Diff NO MAN DIFF REQ WBC (4.8 - 10.8 /CUMM) 10.8 RBC (4.70 - 6.10 /CUMM) 3.12 L Hgb (14.0 - 18.0 G/DL) 10.1 L Hct (42 - 52 %) 30.1 L MCV (80.0 - 94.0 FL) 96.4 H MCH (27.0 - 31.0 PG) 32.3 H MCHC (33.0 - 37.0 G/DL) 33.5 RDW (11.5 - 14.5 %) 18.1 H Plt Count (130 - 400 /CUMM) 36 L MPV (7.4 - 10.4 FL) 9.2 Gran % (42.2 - 75.2 %) 92.2 H Lymphocytes % (20.5 - 51.1 %) 5.7 L Monocytes % (1.7 - 9.3 %) 1.9 Eosinophils % (0 - 5 %) 0 Basophils % (0.0 - 2.0 %) 0.2 Absolute Granulocytes (1.4 - 6.5 /CUMM) 9.9 H Absolute Lymphocytes (1.2 - 3.4 /CUMM) 0.6 L Absolute Monocytes (0.10 - 0.60 /CUMM) 0.2 Absolute Eosinophils (0.0 - 0.7 /CUMM) 0 Absolute Basophils (0.0 - 0.2 /CUMM) 0 Immunology Heparin-induced Plt Ab (NEGATIVE) NEGATIVE Heparin-PF4 AB OD (<OR= 0.300 OD UNITS) 0.010 10/31 0630 Chemistry Sodium (137 - 145 mmol/L) 135 L Potassium (3.5 - 5.1 mmol/L) 3.8 Chloride (98 - 107 mmol/L) 96 L Carbon Dioxide (22 - 30 mmol/L) 27 Anion Gap (5 - 16) 13 BUN (9 - 20 mg/dL) 97 H Creatinine (0.7 - 1.2 mg/dL) 9.7 *H Estimated GFR (>60 ml/min) 5 L BUN/Creatinine Ratio (7 - 25 %) 10.0 Hematology CBC w Diff NO MAN DIFF REQ WBC (4.8 - 10.8 /CUMM) 9.8 RBC (4.70 - 6.10 /CUMM) 2.65 L Hgb (14.0 - 18.0 G/DL) 8.6 L Hct (42 - 52 %) 25.5 L MCV (80.0 - 94.0 FL) 96.1 H MCH (27.0 - 31.0 PG) 32.4 H MCHC (33.0 - 37.0 G/DL) 33.7 RDW (11.5 - 14.5 %) 17.9 H Plt Count (130 - 400 /CUMM) 42 L MPV (7.4 - 10.4 FL) 7.9 Gran % (42.2 - 75.2 %) 90.5 H Lymphocytes % (20.5 - 51.1 %) 7.0 L Monocytes % (1.7 - 9.3 %) 2.4 Eosinophils % (0 - 5 %) 0.1 Basophils % (0.0 - 2.0 %) 0 Absolute Granulocytes (1.4 - 6.5 /CUMM) 8.9 H Absolute Lymphocytes (1.2 - 3.4 /CUMM) 0.7 L Absolute Monocytes (0.10 - 0.60 /CUMM) 0.2 Absolute Eosinophils (0.0 - 0.7 /CUMM) 0 Absolute Basophils (0.0 - 0.2 /CUMM) 0
[2017-11-02 10:50] LABS: PLATELET COUNT 34 /CUMM (130-400)
[2017-11-02 10:51] LABS: GRANULOCYTE % 89.7 % (42.2-75.2)
--- NOTE | 2017-11-02 11:13 | PN- Infect Dx ---
Subjective Subjective: Afebrile on steroids without complaints. He had an episode of increased confusion last evening, which has improved today. Objective Last 24 Hrs of Vital Signs/I&O Vital Signs Date Time Temp Pulse Resp B/P B/P Pulse O2 O2 Flow FiO2 Mean Ox Delivery Rate 11/02 0922 70 110/60 11/02 0620 98.0 70 18 124/70 93 Room Air 11/02 0000 Nasal 2.0L Cannula 11/01 2227 84 120/70 11/01 2140 96.8 68 20 118/82 92 11/01 1533 99.6 79 18 110/68 94 Intake & Output 11/02 1600 11/02 0800 11/02 0000 Intake Total 240 4450 Output Total 200 0 7000 Balance -200 240 -2550 Intake, 4200 Dialysate Intake, Oral 240 250 Number Bowel Movements Output, 0 7000 Dialysate Output, Urine 200 Patient 179 lb Weight Weight Bed scale Measurement Method Physical Exam Other Physical Findings: He appears comfortable, with his mental status unchanged from previous visits. Lungs rhonchi at the right base Heart regular rhythm with no murmur Abdomen is mildly distended, nontender with positive bowel sounds Extremities no cyanosis, clubbing or edema Results Last 24 Hours of Lab Results: Laboratory Tests 11/02 11/01 0642 2300 Blood Gas pH (7.35 - 7.45 PH) 7.50 H pCO2 (35 - 45 TORR) 30 L pO2 (80 - 100 TORR) 78 L HCO3 (21 - 28 MEQ/L) 23 ABG O2 Sat (Measured) (>96.0 %) 94.0 L Carboxyhemoglobin (1.5 - 5.0 %) 0.3 L O2 Concentration % 1L O2 Delivery Method NC Chemistry Sodium (137 - 145 mmol/L) 136 L Potassium (3.5 - 5.1 mmol/L) 4.3 Chloride (98 - 107 mmol/L) 95 L Carbon Dioxide (22 - 30 mmol/L) 25 Anion Gap (5 - 16) 15 BUN (9 - 20 mg/dL) 101 *H Creatinine (0.7 - 1.2 mg/dL) 9.8 *H Estimated GFR (>60 ml/min) 5 L BUN/Creatinine Ratio (7 - 25 %) 10.3 Hematology CBC w Diff NO MAN DIFF REQ WBC (4.8 - 10.8 /CUMM) 8.2 RBC (4.70 - 6.10 /CUMM) 3.03 L Hgb (14.0 - 18.0 G/DL) 9.7 L Hct (42 - 52 %) 29.4 L MCV (80.0 - 94.0 FL) 97.3 H MCH (27.0 - 31.0 PG) 31.9 H MCHC (33.0 - 37.0 G/DL) 32.8 L RDW (11.5 - 14.5 %) 17.6 H Plt Count (130 - 400 /CUMM) 34 L MPV (7.4 - 10.4 FL) 8.8 Gran % (42.2 - 75.2 %) 89.7 H Lymphocytes % (20.5 - 51.1 %) 7.9 L Monocytes % (1.7 - 9.3 %) 2.0 Eosinophils % (0 - 5 %) 0.3 Basophils % (0.0 - 2.0 %) 0.1 Absolute Granulocytes (1.4 - 6.5 /CUMM) 7.3 H Absolute Lymphocytes (1.2 - 3.4 /CUMM) 0.6 L Absolute Monocytes (0.10 - 0.60 /CUMM) 0.2 Absolute Eosinophils (0.0 - 0.7 /CUMM) 0 Absolute Basophils (0.0 - 0.2 /CUMM) 0 Miscellaneous Phlebotomy Draw Site RIGHT RADIAL 11/01 11/01 2230 2210 Chemistry Sodium (137 - 145 mmol/L) 133 L Potassium (3.5 - 5.1 mmol/L) 3.6 Chloride (98 - 107 mmol/L) 94 L Carbon Dioxide (22 - 30 mmol/L) 27 Anion Gap (5 - 16) 12 BUN (9 - 20 mg/dL) 99 H Creatinine (0.7 - 1.2 mg/dL) 9.8 *H Estimated GFR (>60 ml/min) 5 L BUN/Creatinine Ratio (7 - 25 %) 10.1 Glucose (65 - 99 mg/dL) 119 H Calcium (8.4 - 10.2 mg/dL) 8.4 Phosphorus (2.5 - 4.5 mg/dL) 6.7 H Magnesium (1.6 - 2.3 mg/dL) 2.3 Troponin I (<0.11 ng/ml) 0.16 *H Hematology CBC w Diff NO MAN DIFF REQ WBC (4.8 - 10.8 /CUMM) 10.0 RBC (4.70 - 6.10 /CUMM) 3.22 L Hgb (14.0 - 18.0 G/DL) 10.0 L Hct (42 - 52 %) 31.3 L MCV (80.0 - 94.0 FL) 97.1 H MCH (27.0 - 31.0 PG) 31.1 H MCHC (33.0 - 37.0 G/DL) 32.0 L RDW (11.5 - 14.5 %) 17.9 H Plt Count (130 - 400 /CUMM) 36 L MPV (7.4 - 10.4 FL) 8.9 Gran % (42.2 - 75.2 %) 84.7 H Lymphocytes % (20.5 - 51.1 %) 8.5 L Monocytes % (1.7 - 9.3 %) 6.5 Eosinophils % (0 - 5 %) 0.1 Basophils % (0.0 - 2.0 %) 0.2 Absolute Granulocytes (1.4 - 6.5 /CUMM) 8.5 H Absolute Lymphocytes (1.2 - 3.4 /CUMM) 0.9 L Absolute Monocytes (0.10 - 0.60 /CUMM) 0.6 Absolute Eosinophils (0.0 - 0.7 /CUMM) 0 Absolute Basophils (0.0 - 0.2 /CUMM) 0 Last 24 Hours of [place] Results: No recent cultures Recent Imaging Studies: Chest x-ray November 01 reveals an improving left perihilar opacity Assessment/Plan ID Impression: Stable, with temperatures and white blood cell count remaining normal (on steroids), now Day 7 of Ceftriaxone for pneumococcal sepsis, possibly secondary to pneumonia or meningitis, with a lumbar puncture never performed, or peritonitis secondary to his Tenckhoff catheter. His thrombocytopenia persists and may be secondary to sepsis or medications, including the Ceftriaxone, and, if his platelet count continues to decrease, will need to reevaluate his antibiotics. The increased confusion reported last evening is of unclear etiology but is most likely secondary to pain medication. Suggestion: 1. Continue close monitoring of his platelet count 2. Continue Ceftriaxone
[2017-11-02 14:36] VITALS: BP 120/70
[2017-11-02 20:10] LABS: ABSOLUTE BASOPHIL COUNT 0 /CUMM (0.0-0.2); ABSOLUTE EOSINOPHIL COUNT 0 /CUMM (0.0-0.7); ABSOLUTE GRANULOCYTE CT 7.7 /CUMM (1.4-6.5); ABSOLUTE LYMPH COUNT 0.7 /CUMM (1.2-3.4); ABSOLUTE MONOCYTE COUNT 0.3 /CUMM (0.10-0.60); BASOPHIL % 0.1 % (0.0-2.0); EOSINOPHIL % 0.1 % (0-5); GRANULOCYTE % 88.1 % (42.2-75.2); HEMATOCRIT 30.3 % (42-52); MEAN CORPUSCULAR HGB 32.3 PG (27.0-31.0); MEAN CORPUSCULAR HGB CONC 33.8 G/DL (33.0-37.0); MEAN CORPUSCULAR VOLUME 95.7 FL (80.0-94.0); MEAN PLATELET VOLUME 8.9 FL (7.4-10.4); RBC DISTRIBUTION WIDTH 18.3 % (11.5-14.5); RED BLOOD CELL CT 3.17 /CUMM (4.70-6.10); WHITE BLOOD CELL COUNT 8.7 /CUMM (4.8-10.8)
[2017-11-02 20:15] LABS: PLATELET COUNT 33 /CUMM (130-400)
[2017-11-02 22:16] VITALS: BP 110/80
[2017-11-03 06:18] VITALS: BP 106/68
--- NOTE | 2017-11-03 06:50 | PN- Oncology ---
Subjective Subjective: Minimal pain, not confused 12 point review of systems otherwise negative Objective Vital Signs and I&Os Vital Signs Date Time Temp Pulse Resp B/P B/P Pulse O2 O2 Flow FiO2 Mean Ox Delivery Rate 11/03 617 98.6 66 16 106/68 94 Nasal 1.0L Cannula 11/03 0000 Nasal 2.0L Cannula 11/02 2216 97.9 70 14 110/80 93 Nasal 1.0L Cannula 11/02 205 110/80 11/02 1600 Nasal 2.0L Cannula 11/02 1436 97.0 63 18 120/70 93 Nasal 1.0L Cannula 11/02 0922 70 110/60 11/02 0800 Nasal 2.0L Cannula Intake & Output 11/03 0800 11/03 0000 11/02 1600 11/02 0811/02 0000 11/01 1600 Intake Total 240 140 383 271 2656 Output Total 200 1100 800 0 7000 50 Balance 40 -960 -440 240 -2550 -50 Intake, 4200 Dialysate Intake, IV 40 Intake, Oral 240 100 360 240 250 Number Bowel Movements Output, 200 1100 600 0 7000 50 Dialysate Output, Urine 200 Patient 174 lb 179 lb Weight Weight Bed scale Measurement Method Gen.: in NAD ENT: Sclera anicteric Chest: Normal respiratory effort, decrease breath sounds Cor: RRR, no extra sounds Abdomen: Soft, bowel sounds present, no tenderness, no rebound Extremities: Without clubbing, cyanosis, or asymmetric edema Neurology: Alert and oriented 3, no gross deficit Current Medications: Current Medications Sig/Christie Start time Last Medication Dose Route Stop Time Status Admin Carvedilol 3.125 MG BID 10/31 1055 AC 11/02 PO 2052 Ceftriaxone Sodium 2,000 MG 10/27 AC 11/02 IV 2051 Hydrocortisone 50 MG BID 11/01 2099 AC 11/02 Sodium Succinate IV 2051 Lidocaine 1 PAT DAILY PRN 11/02 0845 AC EXT Lubiprostone 24 MCG BID 10/25 220 AC 11/02 PO 2052 Magnesium Oxide 400 MG DAILY 10/25 1611 AC 11/02 PO 921 Midodrine 7.5 MG Q8 10/29 1400 AC 11/03 PO 0626 Multivitamins 1 TAB DAILY 10/26 1000 AC 11/02 PO 09 Oxycodone HCl 10 MG ONCE ONE 11/02 0815 DC 11/02 PO 04/19 0916 0923 Oxycodone HCl 20 MG 0900,2100 10/26 0900 AC 11/01 PO 0848 Polyethylene Glycol 17 GM DAILY 10/27 1645 AC 11/02 PO 0921 Prochlorperazine 10 MG Q6 PRN 10/25 1615 AC PO Senna/Docusate Sodium 1 TAB BID PRN 10/27 1645 AC 10/30 PO 2114 Sevelamer Carbonate 3,200 MG WM 10/25 1700 AC 11/01 PO 1703 Sevelamer Carbonate 1,600 MG TID PRN 10/25 1615 AC PO Results Last 24 Hours of Lab Results: Laboratory Tests 11/02 11/02 1900 1213 Chemistry Ammonia (9 - 30 umol/L) < 9 L Hematology CBC w Diff NO MAN DIFF REQ WBC (4.8 - 10.8 /CUMM) 8.7 RBC (4.70 - 6.10 /CUMM) 3.17 L Hgb (14.0 - 18.0 G/DL) 10.2 L Hct (42 - 52 %) 30.3 L MCV (80.0 - 94.0 FL) 95.7 H MCH (27.0 - 31.0 PG) 32.3 H MCHC (33.0 - 37.0 G/DL) 33.8 RDW (11.5 - 14.5 %) 18.3 H Plt Count (130 - 400 /CUMM) 33 L MPV (7.4 - 10.4 FL) 8.9 Gran % (42.2 - 75.2 %) 88.1 H Lymphocytes % (20.5 - 51.1 %) 8.5 L Monocytes % (1.7 - 9.3 %) 3.2 Eosinophils % (0 - 5 %) 0.1 Basophils % (0.0 - 2.0 %) 0.1 Absolute Granulocytes (1.4 - 6.5 /CUMM) 7.7 H Absolute Lymphocytes (1.2 - 3.4 /CUMM) 0.7 L Absolute Monocytes (0.10 - 0.60 /CUMM) 0.3 Absolute Eosinophils (0.0 - 0.7 /CUMM) 0 Absolute Basophils (0.0 - 0.2 /CUMM) 0 Assessment/Plan Assessment/Recommendations: 1. strep sepsis-clinically stable, antibiotics as per Bharath Prado MD 2. Multiple myeloma-chemotherapy on hold 3. Thrombocytopenia-unchanged platelet count, likely drug induced Recommend-follow CBC 4. Confusion-much improved after narcotics held
--- NOTE | 2017-11-03 07:34 | PN- Housestaff ---
Gina Michele MD,[facility] 11/03/17 0734: Subjective Follow-up For: - Septic shock 2/2 Strep Pneumo - PNA vs meningitis - ESRD on PD - Acute on chronic anemia 2/2 ESRD, and MM s/p 2 units of PRBC x2 - Multiple myleoma on chemo - currently on hold - Acuet on chronic back pain - Type II SD - Hx of chronic afib on Eliquis - on hold - Acute on chronic thrombocytopenia - Intermittent epsiode of confusion 2/2 pain medication and uremia Subjective: Patient was comfortably lying in the bed. He was more alert today as compared to yesterday according to the . He was oriented to time person and place. He remained afebrile overnight. No tachycardia or tachypnea. Requiring 1 L of oxygen which we will taper now to room air. Review of Systems Constitutional: Denies: chills, fever. Cardiovascular: Denies: chest pain, palpitations. Respiratory: Denies: cough, short of breath. Gastrointestinal: Denies: abdominal pain, nausea, vomiting. Genitourinary: Denies: dysuria. Musculoskeletal: Denies: back pain. Objective Last 24 Hrs of Vital Signs/I&O Vital Signs Date Time Temp Pulse Resp B/P B/P Pulse O2 O2 Flow FiO2 Mean Ox Delivery Rate 11/03 0618 98.6 66 16 106/68 94 Nasal 1.0L Cannula 11/03 0000 Nasal 2.0L Cannula 11/02 2216 97.9 70 14 110/80 93 Nasal 1.0L Cannula 11/02 2053 110/80 11/02 1600 Nasal 2.0L Cannula 11/02 1436 97.0 63 18 120/70 93 Nasal 1.0L Cannula 11/02 0922 70 110/60 Intake & Output 11/03 1600 11/03 0800 11/03 0000 Intake Total 240 140 Output Total 200 1100 Balance 40 -960 Intake, IV 40 Intake, Oral 240 100 Output, 200 1100 Dialysate Patient 174 lb Weight Physical Exam General Appearance: Alert, Oriented X3, Cooperative Skin Temp/Moisture Exam: Warm/Dry HEENT: Atraumatic, PERRLA Neck: No JVD Cardiovascular: Regular Rate, Normal S1, Normal S2, irregularly irregular Lungs: Clear to Auscultation Abdomen: Normal Bowel Sounds, No Tenderness, pertioneal dialysis catheter in place Neurological: Normal Speech, Normal Tone, Sensation Intact Extremities: No Cyanosis, No Edema Vascular: Normal Pulses Current Medications: Current Medications Sig/Christie Start time Last Medication Dose Route Stop Time Status Admin Carvedilol 3.125 MG BID 10/31 1055 AC 11/02 PO 2052 Ceftriaxone Sodium 2,000 MG 10/27 2100 AC 11/02 IV 2051 Hydrocortisone 50 MG BID 11/01 2099 AC 11/02 Sodium Succinate IV 2051 Lidocaine 1 PAT DAILY PRN 11/02 0945 AC EXT Lubiprostone 24 MCG BID 10/25 2200 AC 11/02 PO 2052 Magnesium Oxide 400 MG DAILY 10/25 1611 AC 11/02 PO 0922 Midodrine 7.5 MG Q8 10/29 1400 AC 11/03 PO 0626 Multivitamins 1 TAB DAILY 10/26 1000 AC 11/02 PO 0922 Oxycodone HCl 10 MG ONCE ONE 11/02 0915 DC 11/02 PO 11/02 0916 0923 Oxycodone HCl 20 MG 0900,10/26 0900 AC 11/01 PO 0848 Polyethylene Glycol 17 GM DAILY 10/27 1645 AC 11/02 PO 0921 Prochlorperazine 10 MG Q6 PRN 10/25 1615 AC PO Senna/Docusate Sodium 1 TAB BID PRN 10/27 1645 AC 10/30 PO 2114 Sevelamer Carbonate 3,200 MG WM 10/25 1700 AC 11/01 PO 1703 Sevelamer Carbonate 1,600 MG TID PRN 10/25 1615 AC PO Last 24 Hrs of Lab/Tyler Results Last 24 Hrs of Labs/Mics: Laboratory Tests 11/03/17617: Sodium Pending, Potassium Pending, Chloride Pending, Carbon Dioxide Pending, Anion Gap Pending, BUN Pending, Creatinine Pending, BUN/Creatinine Ratio Pending , Total Bilirubin Pending, Direct Bilirubin Pending, AST Pending, ALT Pending, Alkaline Phosphatase Pending, Total Protein Pending, Albumin Pending, CBC w Diff Pending, WBC Pending, RBC Pending, Hgb Pending, Hct Pending, MCV Pending, MCH Pending, MCHC Pending, RDW Pending, Plt Count Pending, MPV Pending, Gran % Pending, Lymphocytes % Pending, Monocytes % Pending, Eosinophils % Pending, Basophils % Pending, Absolute Granulocytes Pending, Absolute Lymphocytes Pending , Absolute Monocytes Pending, Absolute Eosinophils Pending, Absolute Basophils Pending 11/02/17 1900: CBC w Diff NO MAN DIFF REQ, RBC 3.17 L, MCV 95.7 H, MCH 32.3 H, MCHC 33.8, RDW 18.3 H, MPV 8.9, Gran % 88.1 H, Lymphocytes % 8.5 L, Monocytes % 3.2, Eosinophils % 0.1, Basophils % 0.1, Absolute Granulocytes 7.7 H, Absolute Lymphocytes 0.7 L, Absolute Monocytes 0.3, Absolute Eosinophils 0, Absolute Basophils 0 11/02/17 1213: Ammonia < 9 L Lines/Diet/Fluids Lines: peripheral lines Restraints: none Assessment/Plan Assessment: 66-year-old gentleman with history of multiple myeloma (cyclophosphamide, bortezomib, dexamethasone + E Po-last chemo 10/18/2017), previously on hemodialysis, end-stage renal disease and currently on peritoneal dialysis came to the hospital with a chief concern of confusion, hypotension. He was initially admitted to telemetry floor and transferred to ICU for hypotension requiring central line and vasopressors for sepsis thought to be 2/2 meningitis, and or PNA, with blood cultures showing growth of Strep Pneumo. He was started on Vanc and Ceftriaxone and subsequently narrowed down to Ceftriaxone after sensitivities for Strep Pneumo came back being sensitive to penicillin. He was then trasnferred to [facility] for further management. Assessment and Plan: Septic shock sec to strep pneumonia Patient was transferred from telemetry to ICU for persistent hypotension, fever, gram positive cocci bacteremia. Patient was found to have fever, hypotension, headache, neck stiffness with gram-positive bacteremia. Possible differentials at that time were meningitis versus pneumonia versus peritoneal fluid infection given cloudy peritoneal fluid. Patient blood cultures are positive for strep pneumonia sensitive to penicillin. CAT scan chest was done which showed multi lolobar areas of consolidation consistent with pneumonia and/or atelectasis. These are in a similar distribution to that seen in 2017 but are worse. New area of groundglass opacity apex right upper lobe. Initially patient was started on ceftriaxone 2 g daily and vancomycin 1 g daily to cover strep pneumonia, meningitis. Later blood culture turned out strep pneumonia, patient was continued on ceftriaxone 2 g daily for strep pneumonia. Vancomycin was discontinued. Patient remained afebrile with normal WBC count. Patient was also continued on acyclovir prophylactic dose. - He will require 2g of Cetriaxone for possible meningitis for a total for 10 days (through 11/05/17). ID recs appreciated. No plans for palcement of PICC line. Lethargy and confusion Patient looks lethragic and had intermitetnt episodes of confusion 2 days ago where he was unable to recall his birthdate etc. His neuro exam was unremarkable , hwoeever he was hypoxic to 88% on room air. A CXR showed left perihilar opacity which is improving from prior, most suggestive of atelectasis. Small left pleural effusion. Patient was also receiving breakthrough Bryanna, whihc we discontinued. Of note his ocnfusion could also be 2/2 uremia, given his elevated BUN and the change in frequency of his dialysis. Will speak with nephro regarding changing the frequency or juan dialysate fluid. Meanwhile will check serum ammonia. Doubt he had an embloic event, as no neuro deficits identified, hwoever will place on NIH stroke sclae q8 hrs, and advised pt's to inform the nurses if she notices any abrupt change. Today patient's mental status has improved significantly. He was alert and oriented to time person and place. His pain medications were changed to his regular long-acting OxyContin. Try to refrain from short-acting breakthrough pain medications. Hypotension - Stable. Patient was found to have persistent hypotension with SBP varying between 60-70 on admission. He was transferred from telemetry to ICU for central line placement and hypotension management. Right IJ central line was placed, started on levophed. Later levophed was titrated off once his SBP was 90. Off note his baseline blood pressure varies between 80-90. Triple lumen catheter was removed on 10/27/2017 at bedside with the no complications. - Patient was also started on midodrine 5 mg 3 times daily for hypotension,as well as hydrocortisone 100 mg every 8 hours, which was tapered to 50 mg every 12 hours. Holding further plAns of tapering, since his platelet count dropped ( doubt it is ITP). - His blood pressure has remained stable since we resumed his home dose fo Carvedilol. Acute on chronic thrombocytopenia - Patient's platelet count took a marielena from 88-->47-->36---34--->33--->38 and since then have remained stable. - Most likely drug induced (?B-lactam). Workup for DIC was negative, and heparin antibody panel was negative. - Will discuss with ID regarding Abx. Acute on chronic anemia s/p tx with 2 PRBC - H&H stable. Thsi AM labs pending - Patient received 2 units of PRBCs. - Goal H&H > 8/25 - Of note his stools were quiac negative. - Continue to monitor hemoglobin End-stage renal disease on peritoneal dialysis Peritoneal dialysis as per snow shoveler recommendations. D/C Heparin 2000 units per dialysis bag, as per snow shoveler. Monitor for electrolyte shifts. D/C peritoneal fluid cell count and cultures monitoring. F/U with nephro regarding freequency and the dialysate fluid. Pain Management/ multiple myeloma (cyclophosphamide, bortezomib, dexamethasone + E Po-last chemo 10/18/2017) Hold Oxycodone PRN for now. Will oprder lidoderm patch PRN. Meanwhile, will palce a one time order of OxyContin 10mg for now and then continue 20mg BID (starting tonight) at home dose for back pain. MRI of total spine was done that showed interval collapse of the T4 vertebral body and there may be mild associated bone marrow edema as well. Paroxysmal atrial fibrillation - Currently rate controlled. - Resumed Co-reg. - Meanwhile continue to hold Eliquis given thromobocytopenia Type II SD - Elevated troponin and no EKG changes possibly from demand supply mismatch and hypotension DVT prophylaxis On alps given thrombocytopenia Diet-reg diet Patient's family refused renal dialysis diet Code Status Full Code Problem List: 1. History of multiple myeloma 2. History of renal failure 3. Elevated troponin Pain Ratin Pain Location: na Pain Goal: Pain 4 or less Pain Plan: Continue current pain meds Tomorrow's Labs & Rationales: cbc for low platelets BEP for renal function DVT/Prophylaxis: mechanical Consulting Request: Consulting Specialty: Nephrology Isidro Echeverria MD 11/03/17 0361: Attending Review Statement Attending Statement Attending Statement: examined this patient, discuss w/resident/PA/BUTANE COMPRESSOR OPERATOR, agreed w/resident/PA/BUTANE COMPRESSOR OPERATOR, discussed with family, reviewed EMR data (avail), discussed with nursing, discussed with case mgmt, amended to note Attending Assessment/Plan: The patient was seen and discussed with house staff, nursing, case management and family (). Platelet count slowly improving and mental status improving. Appreciate Cardiology and Nephrology follow-up. Will need IV antibiotics through 11/05 and can deliver only through peripheral line. Will keep in hospital until completed and follow platelet count and mental status.
[2017-11-03 08:18] LABS: ABSOLUTE BASOPHIL COUNT 0 /CUMM (0.0-0.2); ABSOLUTE EOSINOPHIL COUNT 0 /CUMM (0.0-0.7); ABSOLUTE GRANULOCYTE CT 6.4 /CUMM (1.4-6.5); ABSOLUTE LYMPH COUNT 0.6 /CUMM (1.2-3.4); ABSOLUTE MONOCYTE COUNT 0.4 /CUMM (0.10-0.60); BASOPHIL % 0.1 % (0.0-2.0); EOSINOPHIL % 0.1 % (0-5); HEMATOCRIT 26.6 % (42-52); MEAN CORPUSCULAR HGB 32.3 PG (27.0-31.0); MEAN CORPUSCULAR HGB CONC 33.6 G/DL (33.0-37.0); MEAN CORPUSCULAR VOLUME 96.1 FL (80.0-94.0); MEAN PLATELET VOLUME 8.8 FL (7.4-10.4); RBC DISTRIBUTION WIDTH 18.4 % (11.5-14.5); RED BLOOD CELL CT 2.76 /CUMM (4.70-6.10); WHITE BLOOD CELL COUNT 7.4 /CUMM (4.8-10.8)
[2017-11-03 08:47] LABS: GRANULOCYTE % 86.2 % (42.2-75.2); PLATELET COUNT 38 /CUMM (130-400)
--- NOTE | 2017-11-03 10:40 | PN- Nephrology ---
Assessment/Plan Nephrology Assessment: Still with some slight volulme overload, but asymptomatic. Suggestion: Will continue all 2.5% exchages, 4 a day. Subjective Subjective: No complaints, slept well, less confused on decreased narcotics. Objective Vital Signs and I&Os Vital Signs Date Time Temp Pulse Resp B/P B/P Pulse O2 O2 Flow FiO2 Mean Ox Delivery Rate 11/03 0848 64 112/68 11/03 0800 Nasal 2.0L Cannula 11/03 0618 98.6 66 16 106/68 94 Nasal 1.0L Cannula 11/03 0000 Nasal 2.0L Cannula 11/02 2216 97.9 70 14 110/80 93 Nasal 1.0L Cannula 11/02 2053 110/80 11/02 1600 Nasal 2.0L Cannula 11/02 1436 97.0 63 18 120/70 93 Nasal 1.0L Cannula Intake & Output 11/03 1600 11/03 0400 11/02 1600 11/02 0400 11/01 1600 11/01 0400 Intake Total 240 352 114 3651 360 360 Output Total 200 7564 352 5359 100 450 Balance 40 -960 -200 -2550 260 -90 Intake, 4200 Dialysate Intake, IV 40 Intake, Oral 240 100 600 250 360 360 Number 1 Bowel Movements Output, 200 4685 487 9804 100 450 Dialysate Output, Urine 200 Patient 174 lb 179 lb Weight Weight Bed scale Measurement Method Physical Exam: NAD VS as above Lungs:clear CV: no rub Abd: nontender Exts: 1+ dependent edema Neuro: A&O Current Medications: Current Medications Sig/Christie Start time Last Medication Dose Route Stop Time Status Admin Carvedilol 3.125 MG BID 10/31 1055 AC 11/03 PO 0848 Ceftriaxone Sodium 2,000 MG 10/27 AC 11/02 IV 205 Hydrocortisone 50 MG BID 11/01 2099 AC 11/03 Sodium Su[place] IV 0850 Lidocaine 1 PAT DAILY PRN 11/02 0945 AC EXT Lubiprostone 24 MCG BID 10/25 220 AC 11/03 PO 0847 Magnesium Oxide 400 MG DAILY 10/25 1611 AC 11/03 PO 0849 Midodrine 7.5 MG Q8 10/29 1400 AC 11/03 PO 0626 Multivitamins 1 TAB DAILY 10/26 1000 AC 11/03 PO 0849 Oxycodone HCl 20 MG 09,10/26 0900 AC 11/01 PO 0848 Polyethylene Glycol 17 GM DAILY 10/27 164 AC 11/03 PO 0849 Prochlorperazine 10 MG Q6 PRN 10/25 161 AC PO Senna/Docusate Sodium 1 TAB BID PRN 10/27 164 AC 10/30 PO 2114 Sevelamer Carbonate 3,200 MG WM 10/25 1700 AC 11/01 PO 1703 Sevelamer Carbonate 1,600 MG TID PRN 10/25 161 AC PO Results Pertinent Lab Results: Laboratory Tests 11/03 11/02 0618 1900 Chemistry Sodium (137 - 145 mmol/L) 136 L Potassium (3.5 - 5.1 mmol/L) 4.3 Chloride (98 - 107 mmol/L) 95 L Carbon Dioxide (22 - 30 mmol/L) 27 Anion Gap (5 - 16) 14 BUN (9 - 20 mg/dL) 99 H Creatinine (0.7 - 1.2 mg/dL) 9.9 *H Estimated GFR (>60 ml/min) 5 L BUN/Creatinine Ratio (7 - 25 %) 10.0 Total Bilirubin (0.2 - 1.3 mg/dL) 0.5 Direct Bilirubin (< 0.4 mg/dL) 0.5 H AST (17 - 59 U/L) 14 L ALT (21 - 72 U/L) 35 Alkaline Phosphatase (< 127 U/L) 87 Total Protein (6.3 - 8.2 g/dL) 5.4 L Albumin (3.5 - 5.0 g/dL) 2.4 L Hematology CBC w Diff NO MAN DIFF REQ NO MAN DIFF REQ WBC (4.8 - 10.8 /CUMM) 7.4 8.7 RBC (4.70 - 6.10 /CUMM) 2.76 L 3.17 L Hgb (14.0 - 18.0 G/DL) 8.9 L 10.2 L Hct (42 - 52 %) 26.6 L 30.3 L MCV (80.0 - 94.0 FL) 96.1 H 95.7 H MCH (27.0 - 31.0 PG) 32.3 H 32.3 H MCHC (33.0 - 37.0 G/DL) 33.6 33.8 RDW (11.5 - 14.5 %) 18.4 H 18.3 H Plt Count (130 - 400 /CUMM) 38 L 33 L MPV (7.4 - 10.4 FL) 8.8 8.9 Gran % (42.2 - 75.2 %) 86.2 H 88.1 H Lymphocytes % (20.5 - 51.1 %) 8.7 L 8.5 L Monocytes % (1.7 - 9.3 %) 4.9 3.2 Eosinophils % (0 - 5 %) 0.1 0.1 Basophils % (0.0 - 2.0 %) 0.1 0.1 Absolute Granulocytes (1.4 - 6.5 /CUMM) 6.4 7.7 H Absolute Lymphocytes (1.2 - 3.4 /CUMM) 0.6 L 0.7 L Absolute Monocytes (0.10 - 0.60 /CUMM) 0.4 0.3 Absolute Eosinophils (0.0 - 0.7 /CUMM) 0 0 Absolute Basophils (0.0 - 0.2 /CUMM) 0 0 11/02 11/02 11/01 1213 0642 2300 Blood Gas pH (7.35 - 7.45 PH) 7.50 H pCO2 (35 - 45 TORR) 30 L pO2 (80 - 100 TORR) 78 L HCO3 (21 - 28 MEQ/L) 23 ABG O2 Sat (Measured) (>96.0 %) 94.0 L Carboxyhemoglobin (1.5 - 5.0 %) 0.3 L O2 Concentration % 1L O2 Delivery Method NC Chemistry Sodium (137 - 145 mmol/L) 136 L Potassium (3.5 - 5.1 mmol/L) 4.3 Chloride (98 - 107 mmol/L) 95 L Carbon Dioxide (22 - 30 mmol/L) 25 Anion Gap (5 - 16) 15 BUN (9 - 20 mg/dL) 101 *H Creatinine (0.7 - 1.2 mg/dL) 9.8 *H Estimated GFR (>60 ml/min) 5 L BUN/Creatinine Ratio (7 - 25 %) 10.3 Ammonia (9 - 30 umol/L) < 9 L Hematology CBC w Diff NO MAN DIFF REQ WBC (4.8 - 10.8 /CUMM) 8.2 RBC (4.70 - 6.10 /CUMM) 3.03 L Hgb (14.0 - 18.0 G/DL) 9.7 L Hct (42 - 52 %) 29.4 L MCV (80.0 - 94.0 FL) 97.3 H MCH (27.0 - 31.0 PG) 31.9 H MCHC (33.0 - 37.0 G/DL) 32.8 L RDW (11.5 - 14.5 %) 17.6 H Plt Count (130 - 400 /CUMM) 34 L MPV (7.4 - 10.4 FL) 8.8 Gran % (42.2 - 75.2 %) 89.7 H Lymphocytes % (20.5 - 51.1 %) 7.9 L Monocytes % (1.7 - 9.3 %) 2.0 Eosinophils % (0 - 5 %) 0.3 Basophils % (0.0 - 2.0 %) 0.1 Absolute Granulocytes (1.4 - 6.5 /CUMM) 7.3 H Absolute Lymphocytes (1.2 - 3.4 /CUMM) 0.6 L Absolute Monocytes (0.10 - 0.60 /CUMM) 0.2 Absolute Eosinophils (0.0 - 0.7 /CUMM) 0 Absolute Basophils (0.0 - 0.2 /CUMM) 0 Miscellaneous Phlebotomy Draw Site RIGHT RADIAL 11/01 11/01 2230 2210 Chemistry Sodium (137 - 145 mmol/L) 133 L Potassium (3.5 - 5.1 mmol/L) 3.6 Chloride (98 - 107 mmol/L) 94 L Carbon Dioxide (22 - 30 mmol/L) 27 Anion Gap (5 - 16) 12 BUN (9 - 20 mg/dL) 99 H Creatinine (0.7 - 1.2 mg/dL) 9.8 *H Estimated GFR (>60 ml/min) 5 L BUN/Creatinine Ratio (7 - 25 %) 10.1 Glucose (65 - 99 mg/dL) 119 H Calcium (8.4 - 10.2 mg/dL) 8.4 Phosphorus (2.5 - 4.5 mg/dL) 6.7 H Magnesium (1.6 - 2.3 mg/dL) 2.3 Troponin I (<0.11 ng/ml) 0.16 *H Hematology CBC w Diff NO MAN DIFF REQ WBC (4.8 - 10.8 /CUMM) 10.0 RBC (4.70 - 6.10 /CUMM) 3.22 L Hgb (14.0 - 18.0 G/DL) 10.0 L Hct (42 - 52 %) 31.3 L MCV (80.0 - 94.0 FL) 97.1 H MCH (27.0 - 31.0 PG) 31.1 H MCHC (33.0 - 37.0 G/DL) 32.0 L RDW (11.5 - 14.5 %) 17.9 H Plt Count (130 - 400 /CUMM) 36 L MPV (7.4 - 10.4 FL) 8.9 Gran % (42.2 - 75.2 %) 84.7 H Lymphocytes % (20.5 - 51.1 %) 8.5 L Monocytes % (1.7 - 9.3 %) 6.5 Eosinophils % (0 - 5 %) 0.1 Basophils % (0.0 - 2.0 %) 0.2 Absolute Granulocytes (1.4 - 6.5 /CUMM) 8.5 H Absolute Lymphocytes (1.2 - 3.4 /CUMM) 0.9 L Absolute Monocytes (0.10 - 0.60 /CUMM) 0.6 Absolute Eosinophils (0.0 - 0.7 /CUMM) 0 Absolute Basophils (0.0 - 0.2 /CUMM) 0 11/01 10/31 0810 2000 Chemistry Sodium (137 - 145 mmol/L) 135 L Potassium (3.5 - 5.1 mmol/L) 3.9 Chloride (98 - 107 mmol/L) 95 L Carbon Dioxide (22 - 30 mmol/L) 26 Anion Gap (5 - 16) 14 BUN (9 - 20 mg/dL) 98 H Creatinine (0.7 - 1.2 mg/dL) 9.7 *H Estimated GFR (>60 ml/min) 5 L BUN/Creatinine Ratio (7 - 25 %) 10.1 Coagulation PT (9.4 - 12.5 SEC) 10.7 INR (0.90 - 1.17) 0.98 Hematology CBC w Diff MAN DIFF ORDERED NO MAN DIFF REQ WBC (4.8 - 10.8 /CUMM) 9.8 11.2 H RBC (4.70 - 6.10 /CUMM) 3.00 L 3.25 L Hgb (14.0 - 18.0 G/DL) 9.6 L 10.2 L Hct (42 - 52 %) 28.8 L 31.5 L MCV (80.0 - 94.0 FL) 96.2 H 96.9 H MCH (27.0 - 31.0 PG) 32.2 H 31.3 H MCHC (33.0 - 37.0 G/DL) 33.4 32.3 L RDW (11.5 - 14.5 %) 17.7 H 18.3 H Plt Count (130 - 400 /CUMM) 44 L 39 L MPV (7.4 - 10.4 FL) 8.3 8.7 Gran % (42.2 - 75.2 %) 90.6 H 90.2 H Lymphocytes % (20.5 - 51.1 %) 6.6 L 6.8 L Monocytes % (1.7 - 9.3 %) 2.8 2.4 Eosinophils % (0 - 5 %) 0 0.1 Basophils % (0.0 - 2.0 %) 0 0.5 Absolute Granulocytes (1.4 - 6.5 /CUMM) 8.9 H 10.1 H Segmented Neutrophils (42.2 - 75.2 %) 86 H Absolute Lymphocytes (1.2 - 3.4 /CUMM) 0.6 L 0.8 L Lymphocytes (20.5 - 51.1 %) 7 L Monocytes (1.7 - 9.3 %) 6 Absolute Monocytes (0.10 - 0.60 /CUMM) 0.3 0.3 Absolute Eosinophils (0.0 - 0.7 /CUMM) 0 0 Absolute Basophils (0.0 - 0.2 /CUMM) 0 0.1 Myelocytes (0 - 0 %) 1 H Nucleated RBCs (0.0 - 0.0 /100WBC) 1 H Platelet Estimate (ADEQUATE) DECREASED Hypochromic-Microcytic 1+ Poikilocytosis FEW Anisocytosis 1+ Ovalocytes 1+ 10/31 10/31 1415 1137 Coagulation PT (9.4 - 12.5 SEC) 10.4 INR (0.90 - 1.17) 0.95 APTT (25 - 37 SEC) 26 Fibrinogen Activity (200 - 393 MG/DL) 701 H D-Dimer High Sensitivty (0 - 243 ng/ml) 2115 H Hematology CBC w Diff NO MAN DIFF REQ WBC (4.8 - 10.8 /CUMM) 10.8 RBC (4.70 - 6.10 /CUMM) 3.12 L Hgb (14.0 - 18.0 G/DL) 10.1 L Hct (42 - 52 %) 30.1 L MCV (80.0 - 94.0 FL) 96.4 H MCH (27.0 - 31.0 PG) 32.3 H MCHC (33.0 - 37.0 G/DL) 33.5 RDW (11.5 - 14.5 %) 18.1 H Plt Count (130 - 400 /CUMM) 36 L MPV (7.4 - 10.4 FL) 9.2 Gran % (42.2 - 75.2 %) 92.2 H Lymphocytes % (20.5 - 51.1 %) 5.7 L Monocytes % (1.7 - 9.3 %) 1.9 Eosinophils % (0 - 5 %) 0 Basophils % (0.0 - 2.0 %) 0.2 Absolute Granulocytes (1.4 - 6.5 /CUMM) 9.9 H Absolute Lymphocytes (1.2 - 3.4 /CUMM) 0.6 L Absolute Monocytes (0.10 - 0.60 /CUMM) 0.2 Absolute Eosinophils (0.0 - 0.7 /CUMM) 0 Absolute Basophils (0.0 - 0.2 /CUMM) 0 Immunology Heparin-induced Plt Ab (NEGATIVE) NEGATIVE Heparin-PF4 AB OD (<OR= 0.300 OD UNITS) 0.010
--- NOTE | 2017-11-03 11:36 | PN- Cardiology ---
Subjective Subjective: Patient is resting comfortably without complaints today. Objective Vital Signs and I&Os Vital Signs Date Time Temp Pulse Resp B/P B/P Pulse O2 O2 Flow FiO2 Mean Ox Delivery Rate 11/03 0848 64 112/68 11/03 0800 Nasal 2.0L Cannula 11/03 0618 98.6 66 16 106/68 94 Nasal 1.0L Cannula 11/03 0000 Nasal 2.0L Cannula 11/02 2216 97.9 70 14 110/80 93 Nasal 1.0L Cannula 11/02 2053 110/80 11/02 1600 Nasal 2.0L Cannula 11/02 1436 97.0 63 18 120/70 93 Nasal 1.0L Cannula Intake & Output 11/03 1600 11/03 0800 11/03 0000 11/02 1600 11/02 0800 11/02 0000 Intake Total 240 140 244 321 2334 Output Total 200 1100 800 0 7000 Balance 40 -960 -440 240 -2550 Intake, 4200 Dialysate Intake, IV 40 Intake, Oral 240 100 360 240 250 Number Bowel Movements Output, 200 1100 600 0 7000 Dialysate Output, Urine 200 Patient 174 lb 179 lb Weight Weight Bed scale Measurement Method Physical Exam: General: no apparent distress. Alert. Eyes: No obvious scleral icterus. HEENT: no JVD Cardiovascular: Normal intensity S1/S2. Regular Respiratory: Lungs clear to auscultation bilaterally. Abdomen: Soft, nontender with no guarding or rebound tenderness. Musculoskeletal: No clubbing or cyanosis noted, no edema Skin: Warm Neurologic: No gross focal deficits noted. Current Medications: Current Medications Sig/Christie Start time Last Medication Dose Route Stop Time Status Admin Carvedilol 3.125 MG BID 10/31 1055 AC 11/03 PO 0848 Ceftriaxone Sodium 2,000 MG 10/27 AC 11/02 IV 205 Hydrocortisone 50 MG BID 11/01 2099 AC 11/03 S[place] 0850 Lidocaine 1 PAT DAILY PRN 11/02 0945 AC EXT Lubiprostone 24 MCG BID 10/25 2199 AC 11/03 PO 0847 Magnesium Oxide 400 MG DAILY 10/25 1611 AC 11/03 PO 0849 Midodrine 7.5 MG Q8 10/29 1400 AC 11/03 PO 0626 Multivitamins 1 TAB DAILY 10/26 1000 AC 11/03 PO 0849 Oxycodone HCl 20 MG 0900,10/26 0900 AC 11/01 PO 0848 Polyethylene Glycol 17 GM DAILY 10/27 1645 AC 11/03 PO 0849 Prochlorperazine 10 MG Q6 PRN 10/25 161 AC PO Senna/Docusate Sodium 1 TAB BID PRN 10/27 1645 AC 10/30 PO 2114 Sevelamer Carbonate 3,200 MG WM 10/25 1700 AC 11/01 PO 1703 Sevelamer Carbonate 1,600 MG TID PRN 10/25 161 AC PO Results Last 48 Hrs of Labs/Mics: Laboratory Tests 11/03/17 0618: Anion Gap 14, Estimated GFR 5 L, BUN/Creatinine Ratio 10.0, Total Bilirubin 0.5 , Direct Bilirubin 0.5 H, AST 14 L, ALT 35, Alkaline Phosphatase 87, Total Protein 5.4 L, Albumin 2.4 L, CBC w Diff NO MAN DIFF REQ, RBC 2.76 L, MCV 96.1 H, MCH 32.3 H, MCHC 33.6, RDW 18.4 H, MPV 8.8, Gran % 86.2 H, Lymphocytes % 8.7 L, Monocytes % 4.9, Eosinophils % 0.1, Basophils % 0.1, Absolute Granulocytes 6.4, Absolute Lymphocytes 0.6 L, Absolute Monocytes 0.4, Absolute Eosinophils 0, Absolute Basophils 0 11/02/17 1900: CBC w Diff NO MAN DIFF REQ, RBC 3.17 L, MCV 95.7 H, MCH 32.3 H, MCHC 33.8, RDW 18.3 H, MPV 8.9, Gran % 88.1 H, Lymphocytes % 8.5 L, Monocytes % 3.2, Eosinophils % 0.1, Basophils % 0.1, Absolute Granulocytes 7.7 H, Absolute Lymphocytes 0.7 L, Absolute Monocytes 0.3, Absolute Eosinophils 0, Absolute Basophils 0 11/02/17 1213: Ammonia < 9 L 11/02/17 0642: Anion Gap 15, Estimated GFR 5 L, BUN/Creatinine Ratio 10.3, CBC w Diff NO MAN DIFF REQ, RBC 3.03 L, MCV 97.3 H, MCH 31.9 H, MCHC 32.8 L, RDW 17.6 H, MPV 8.8, Gran % 89.7 H, Lymphocytes % 7.9 L, Monocytes % 2.0, Eosinophils % 0.3, Basophils % 0.1, Absolute Granulocytes 7.3 H, Absolute Lymphocytes 0.6 L, Absolute Monocytes 0.2, Absolute Eosinophils 0, Absolute Basophils 0 11/01/17 2300: pH 7.50 H, pCO2 30 L, pO2 78 L, HCO3 23, ABG O2 Sat (Measured) 94.0 L, Carboxyhemoglobin 0.3 L, O2 Concentration % 1L, O2 Delivery Method NC, Phlebotomy Draw Site RIGHT RADIAL 11/01/172229: Anion Gap 12, Estimated GFR 5 L, BUN/Creatinine Ratio 10.1, Glucose 119 H, Calcium 8.4, Phosphorus 6.7 H, Magnesium 2.3, Troponin I 0.16 *H 11/01/172209: CBC w Diff NO MAN DIFF REQ, RBC 3.22 L, MCV 97.1 H, MCH 31.1 H, MCHC 32.0 L, RDW 17.9 H, MPV 8.9, Gran % 84.7 H, Lymphocytes % 8.5 L, Monocytes % 6.5, Eosinophils % 0.1, Basophils % 0.2, Absolute Granulocytes 8.5 H, Absolute Lymphocytes 0.9 L, Absolute Monocytes 0.6, Absolute Eosinophils 0, Absolute Basophils 0 Assessment/Plan Assessment/Plan 1. Hypotension, improved 2. Multiple myeloma 3. Anemia requiring transfusion 4. Paroxysmal atrial fibrillation on low-dose eliquis and with implantable loop recorder 5. End-stage renal disease on peritoneal dialysis 6. History of hypertension on outpatient low-dose coreg 7. Elevated troponin due to end-stage renal disease and hypotension 8. Septic shock/bacteremia 9. Thrombocytopenia Patient is resting comfortably. He has been receiving midodrine but he tells me he does not take this as an outpatient and I would discontinue for now as it should only be necessary if he has symptomatic hypotension which he has not in the past. Eliquis remains on hold given the thrombocytopenia. Agustín Cosby MD [facility] Continue telemetry? Not applicable
--- NOTE | 2017-11-03 13:54 | PN- Infect Dx ---
Subjective Subjective: Afebrile. He feels better and his confusion has also reportedly improved. Objective Last 24 Hrs of Vital Signs/I&O Vital Signs Date Time Temp Pulse Resp B/P B/P Pulse O2 O2 Flow FiO2 Mean Ox Delivery Rate 11/03 0848 64 112/68 11/03 0800 Nasal 2.0L Cannula 11/03 0618 98.6 66 16 106/68 94 Nasal 1.0L Cannula 11/03 0000 Nasal 2.0L Cannula 11/02 2216 97.9 70 14 110/80 93 Nasal 1.0L Cannula 11/02 2053 110/80 11/02 1600 Nasal 2.0L Cannula 11/02 1436 97.0 63 18 120/70 93 Nasal 1.0L Cannula Intake & Output 11/03 1600 11/03 0800 11/03 0000 Intake Total 240 140 Output Total 743 300 2600 Balance -900 40 -960 Intake, IV 40 Intake, Oral 240 100 Output, 524 708 7135 Dialysate Patient 174 lb Weight Physical Exam Other Physical Findings: He is awake and alert but his mental status remains somewhat altered Lungs crackles at the left base Heart regular rhythm without murmur Abdomen is mildly distended, nontender with positive bowel sounds Extremities no cyanosis, clubbing or edema Results Last 24 Hours of Lab Results: Laboratory Tests 11/03 11/02 0618 1900 Chemistry Sodium (137 - 145 mmol/L) 136 L Potassium (3.5 - 5.1 mmol/L) 4.3 Chloride (98 - 107 mmol/L) 95 L Carbon Dioxide (22 - 30 mmol/L) 27 Anion Gap (5 - 16) 14 BUN (9 - 20 mg/dL) 99 H Creatinine (0.7 - 1.2 mg/dL) 9.9 *H Estimated GFR (>60 ml/min) 5 L BUN/Creatinine Ratio (7 - 25 %) 10.0 Total Bilirubin (0.2 - 1.3 mg/dL) 0.5 Direct Bilirubin (< 0.4 mg/dL) 0.5 H AST (17 - 59 U/L) 14 L ALT (21 - 72 U/L) 35 Alkaline Phosphatase (< 127 U/L) 87 Total Protein (6.3 - 8.2 g/dL) 5.4 L Albumin (3.5 - 5.0 g/dL) 2.4 L Hematology CBC w Diff NO MAN DIFF REQ NO MAN DIFF REQ WBC (4.8 - 10.8 /CUMM) 7.4 8.7 RBC (4.70 - 6.10 /CUMM) 2.76 L 3.17 L Hgb (14.0 - 18.0 G/DL) 8.9 L 10.2 L Hct (42 - 52 %) 26.6 L 30.3 L MCV (80.0 - 94.0 FL) 96.1 H 95.7 H MCH (27.0 - 31.0 PG) 32.3 H 32.3 H MCHC (33.0 - 37.0 G/DL) 33.6 33.8 RDW (11.5 - 14.5 %) 18.4 H 18.3 H Plt Count (130 - 400 /CUMM) 38 L 33 L MPV (7.4 - 10.4 FL) 8.8 8.9 Gran % (42.2 - 75.2 %) 86.2 H 88.1 H Lymphocytes % (20.5 - 51.1 %) 8.7 L 8.5 L Monocytes % (1.7 - 9.3 %) 4.9 3.2 Eosinophils % (0 - 5 %) 0.1 0.1 Basophils % (0.0 - 2.0 %) 0.1 0.1 Absolute Granulocytes (1.4 - 6.5 /CUMM) 6.4 7.7 H Absolute Lymphocytes (1.2 - 3.4 /CUMM) 0.6 L 0.7 L Absolute Monocytes (0.10 - 0.60 /CUMM) 0.4 0.3 Absolute Eosinophils (0.0 - 0.7 /CUMM) 0 0 Absolute Basophils (0.0 - 0.2 /CUMM) 0 0 Last 24 Hours of Tyler Results: No recent cultures Assessment/Plan ID Impression: Stable, with temperatures and white blood cell count remaining normal (on steroids), now Day 8 of Ceftriaxone for pneumococcal sepsis, possibly secondary to pneumonia or meningitis, with a lumbar puncture never performed, or peritonitis secondary to his Tenckhoff catheter. His thrombocytopenia persists and may be secondary to one of his medications, possibly the Ceftriaxone, but, as it is stable, feel that the Ceftriaxone can be continued to complete the ten- day course that was planned. Suggestion: 1. Continue Ceftriaxone for 2 more days (would change to an earlier time so that he can be discharged home after his last dose on November 05)
[2017-11-03 15:09] VITALS: BP 110/65
[2017-11-03 22:31] VITALS: BP 138/70
--- NOTE | 2017-11-04 03:33 | PN- Housestaff ---
Subjective Follow-up For: - Septic shock 2/2 Strep Pneumo - PNA - ESRD on PD - Acute on chronic anemia 2/2 ESRD, and MM s/p 2 units of PRBC x2 - Multiple myleoma on chemo - currently on hold - Acuet on chronic back pain - Type II ID - Hx of chronic afib on Eliquis - on hold - Acute on chronic thrombocytopenia - Intermittent epsiode of confusion 2/2 pain medication and uremia Subjective: Patient was comfortably lying in the bed. He remained afebrile overnight. No tachycardia or tachypnea, saturating well now on room air Review of Systems Constitutional: Denies: chills, fever. Cardiovascular: Denies: chest pain. Respiratory: Denies: cough, short of breath. Gastrointestinal: Denies: abdominal pain, nausea, vomiting. Genitourinary: Denies: dysuria. Musculoskeletal: Denies: back pain. Objective Last 24 Hrs of Vital Signs/I&O Vital Signs Date Time Temp Pulse Resp B/P B/P Pulse O2 O2 Flow FiO2 Mean Ox Delivery Rate 11/03 2231 97.8 75 18 138/70 93 11/03 1509 98.5 64 20 110/65 95 Nasal Cannula 11/03 0848 64 112/68 11/03 0800 Nasal 2.0L Cannula 11/03 0618 98.6 66 16 106/68 94 Nasal 1.0L Cannula Intake & Output 11/04 0800 11/04 0000 11/03 1600 Intake Total 250 800 Output Total 2900 900 Balance -2650 -100 Intake, Oral 250 800 Output, 2900 900 Dialysate Physical Exam General Appearance: Alert, Oriented X3, Cooperative HEENT: Atraumatic Neck: Supple, No JVD Cardiovascular: Regular Rate, Normal S1, Normal S2 Lungs: Clear to Auscultation, Normal Air Movement Abdomen: Normal Bowel Sounds, Soft, No Tenderness Neurological: Normal Speech, Strength at 5/5 X4 Ext, Normal Tone Extremities: No Edema Vascular: Normal Pulses Current Medications: Current Medications Sig/Christie Start time Last Medication Dose Route Stop Time Status Admin Carvedilol 3.125 MG BID 10/31 1055 AC 11/03 PO 2030 Ceftriaxone Sodium 2,000 MG 10/27 AC 11/03 IV 2041 Hydrocortisone 50 MG BID 11/01 2099 AC 11/03 Sodium Succinate IV 2031 Lidocaine 1 PAT DAILY PRN 11/02 0945 AC EXT Lubiprostone 24 MCG BID 10/25 2200 AC 11/03 PO 2031 Magnesium Oxide 400 MG DAILY 10/25 1611 AC 11/03 PO 0849 Midodrine 7.5 MG Q8 10/29 1400 DC 11/03 PO 1327 Multivitamins 1 TAB DAILY 10/26 1000 AC 11/03 PO 0849 Oxycodone HCl 20 MG 0900,2100 10/26 0900 AC 11/01 PO 0848 Patient Medication 1 ED ONE ONE 11/03 1715 VT Teaching ED 11/03 1716 Polyethylene Glycol 17 GM DAILY 10/27 1645 AC 11/03 PO 0849 Prochlorperazine 10 MG Q6 PRN 10/25 1615 AC PO Senna/Docusate Sodium 1 TAB BID PRN 10/27 1645 AC 10/30 PO 2114 Sevelamer Carbonate 3,200 MG WM 10/25 1700 AC 11/03 PO 1327 Sevelamer Carbonate 1,600 MG TID PRN 10/25 1615 AC PO Last 24 Hrs of Lab/Tyler Results Last 24 Hrs of Labs/Mics: Laboratory Tests 11/03/17 0618: Anion Gap 14, Estimated GFR 5 L, BUN/Creatinine Ratio 10.0, Total Bilirubin 0.5 , Direct Bilirubin 0.5 H, AST 14 L, ALT 35, Alkaline Phosphatase 87, Total Protein 5.4 L, Albumin 2.4 L, CBC w Diff NO MAN DIFF REQ, RBC 2.76 L, MCV 96.1 H, MCH 32.3 H, MCHC 33.6, RDW 18.4 H, MPV 8.8, Gran % 86.2 H, Lymphocytes % 8.7 L, Monocytes % 4.9, Eosinophils % 0.1, Basophils % 0.1, Absolute Granulocytes 6.4, Absolute Lymphocytes 0.6 L, Absolute Monocytes 0.4, Absolute Eosinophils 0, Absolute Basophils 0 Lines/Diet/Fluids Lines: peripheral lines Restraints: none Assessment/Plan Assessment: 66-year-old gentleman with history of multiple myeloma (cyclophosphamide, bortezomib, dexamethasone + E Po-last chemo 10/18/2017), previously on hemodialysis, end-stage renal disease and currently on peritoneal dialysis came to the hospital with a chief concern of confusion, hypotension. He was initially admitted to telemetry floor and transferred to ICU for hypotension requiring central line and vasopressors for sepsis thought to be 2/2 meningitis, and or PNA, with blood cultures showing growth of Strep Pneumo. He was started on Vanc and Ceftriaxone and subsequently narrowed down to Ceftriaxone after sensitivities for Strep Pneumo came back being sensitive to penicillin. He was then trasnferred to [facility] for further management. Assessment and Plan: Septic shock sec to strep pneumonia Patient was transferred from telemetry to ICU for persistent hypotension, fever, gram positive cocci bacteremia. Patient was found to have fever, hypotension, headache, neck stiffness with gram-positive bacteremia. Possible differentials at that time were meningitis versus pneumonia versus peritoneal fluid infection given cloudy peritoneal fluid. Patient blood cultures are positive for strep pneumonia sensitive to penicillin. CAT scan chest was done which showed multi lolobar areas of consolidation consistent with pneumonia and/or atelectasis. These are in a similar distribution to that seen in 2017 but are worse. New area of groundglass opacity apex right upper lobe. Initially patient was started on ceftriaxone 2 g daily and vancomycin 1 g daily to cover strep pneumonia, meningitis. Later blood culture turned out strep pneumonia, patient was continued on ceftriaxone 2 g daily for strep pneumonia. Vancomycin was discontinued. Patient remained afebrile with normal WBC count. Patient was also continued on acyclovir prophylactic dose. - He will require 2g of Cetriaxone for possible meningitis for a total for 10 days (through 11/05/17). ID recs appreciated. No plans for palcement of PICC line. Patient will stay in the hospital to complete his antibiotics. Lethargy and confusion Patient looks lethragic and had intermitetnt episodes of confusion 3 days ago where he was unable to recall his birthdate etc. His neuro exam was unremarkable , hwoeever he was hypoxic to 88% on room air. A CXR showed left perihilar opacity which is improving from prior, most suggestive of atelectasis. Small left pleural effusion. Patient was also receiving breakthrough Bryanna, which we discontinued. Of note his ocnfusion could also be 2/2 uremia, given his elevated BUN and the change in frequency of his dialysis. We spoke with nephro regarding changing the frequency or the dialysate fluid. Meanwhile will check serum ammonia. Doubt he had an embloic event, as no neuro deficits identified, hwoever will place on NIH stroke sclae q8 hrs, and advised pt's to inform the nurses if she notices any abrupt change. Yesteray patient's mental status has improved significantly. He was alert and oriented to time person and place. His pain medications were changed to his regular long-acting OxyContin. Try to refrain from short-acting breakthrough pain medications. Hypotension - Stable. Patient was found to have persistent hypotension with SBP varying between 60-70 on admission. He was transferred from telemetry to ICU for central line placement and hypotension management. Right IJ central line was placed, started on levophed. Later levophed was titrated off once his SBP was 90. Off note his baseline blood pressure varies between 80-90. Triple lumen catheter was removed on 10/27/2017 at bedside with the no complications. - Patient was also started on midodrine 5 mg 3 times daily (now discontunued as per cardiology) for hypotension,as well as hydrocortisone 100 mg every 8 hours, which was tapered to 50 mg every 12 hours. Holding further plans of tapering, since his platelet count dropped (doubt it is ITP). - His blood pressure has remained stable since we resumed his home dose fo Carvedilol. Acute on chronic thrombocytopenia - Patient's platelet count took a marielena from 88-->47-->36---34--->33--->38 and since then have remained stable. - Most likely drug induced (?B-lactam). Workup for DIC was negative, and heparin antibody panel was negative. - Will discuss with ID regarding Abx. Acute on chronic anemia s/p tx with 2 PRBC - H&H stable. Thsi AM labs pending - Patient received 2 units of PRBCs. - Goal H&H > 03/10 - Of note his stools were quiac negative. - Continue to monitor hemoglobin End-stage renal disease on peritoneal dialysis Peritoneal dialysis as per ammonia box operator recommendations. D/C Heparin 2000 units per dialysis bag, as per ammonia box operator. Monitor for electrolyte shifts. D/C peritoneal fluid cell count and cultures monitoring. F/U with nephro regarding freequency and the dialysate fluid. Pain Management/ multiple myeloma (cyclophosphamide, bortezomib, dexamethasone + E Po-last chemo 10/18/2017) Hold Oxycodone PRN for now. Will oprder lidoderm patch PRN. Meanwhile, will palce a one time order of OxyContin 10mg for now and then continue 20mg BID (starting tonight) at home dose for back pain. MRI of total spine was done that showed interval collapse of the T4 vertebral body and there may be mild associated bone marrow edema as well. Paroxysmal atrial fibrillation - Currently rate controlled. - Resumed Co-reg. - Meanwhile continue to hold Eliquis given thromobocytopenia Type II ID - Elevated troponin and no EKG changes possibly from demand supply mismatch and hypotension DVT prophylaxis On alps given thrombocytopenia Diet reg diet Patient's family refused renal dialysis diet Code Status Full Code Problem List: 1. History of multiple myeloma 2. History of renal failure 3. Hypotension Pain Ratin Pain Location: Back pain Pain Goal: Pain 4 or less Pain Plan: Continue current pain meds Tomorrow's Labs & Rationales: cbc for low platelets BEP for renal function DVT/Prophylaxis: mechanical Consulting Request: Consulting Specialty: Nephrology
[2017-11-04 06:22] VITALS: BP 102/68
[2017-11-04 08:44] LABS: ABSOLUTE BASOPHIL COUNT 0 /CUMM (0.0-0.2); ABSOLUTE EOSINOPHIL COUNT 0 /CUMM (0.0-0.7); ABSOLUTE GRANULOCYTE CT 5.9 /CUMM (1.4-6.5); ABSOLUTE LYMPH COUNT 0.7 /CUMM (1.2-3.4); ABSOLUTE MONOCYTE COUNT 0.3 /CUMM (0.10-0.60); BASOPHIL % 0.1 % (0.0-2.0); EOSINOPHIL % 0.1 % (0-5); GRANULOCYTE % 85.8 % (42.2-75.2); HEMATOCRIT 26.4 % (42-52); MEAN CORPUSCULAR HGB 32.3 PG (27.0-31.0); MEAN CORPUSCULAR HGB CONC 33.8 G/DL (33.0-37.0); MEAN CORPUSCULAR VOLUME 95.5 FL (80.0-94.0); RBC DISTRIBUTION WIDTH 17.2 % (11.5-14.5); RED BLOOD CELL CT 2.77 /CUMM (4.70-6.10)
[2017-11-04 10:37] LABS: PLATELET COUNT 48 /CUMM (130-400); WHITE BLOOD CELL COUNT 6.8 /CUMM (4.8-10.8)
--- NOTE | 2017-11-04 10:46 | PN- Att Addend ---
Attending Addendum Attending Brief Note Patient seen and examined. Plan of care discussed with the medical team and the patient. Available lab work and radiology test reports were reviewed. Patient is lying in bed comfortably. His is at bedside. Patient denies any new complaints. No recent fever chills chest pain or difficulty breathing. He was able to work with physical therapy and was able to negotiate stairs. Exam: General: Patient awake alert oriented without any distress CVS: S1 plus S2 without any murmur or gallops Chest: Few scattered crepitation without any wheeze. There is no respiratory distress. Abdomen: Soft non-tender, bowel sound present, no guarding or rebound TANK OPERATOR: Awake alert oriented without any focal neuro deficit and follows commands appropriately Extremities: No edema; no clubbing or cyanosis noted Assessment 1. Hypotension, improved 2. Multiple myeloma 3. Anemia requiring transfusion 4. Paroxysmal atrial fibrillation on low-dose eliquis and with implantable loop recorder 5. End-stage renal disease on peritoneal dialysis 6. History of hypertension on outpatient low-dose coreg 7. Elevated troponin due to end-stage renal disease and hypotension 8. Septic shock/bacteremia due to strep pneumoniae 9. Thrombocytopenia Plan * Continue ceftriaxone with last was plan for tomorrow * Continue ambulation * Plan for discharge home tomorrow * Discontinue hydrocortisone and monitor BP Current Medications Sig/Christie Start time Last Medication Dose Route Stop Time Status Admin Carvedilol 3.125 MG BID 10/31 1055 AC 11/04 PO 0834 Ceftriaxone Sodium 2,000 MG 1400 11/04 1400 AC IV 11/05 1401 Ceftriaxone Sodium 2,000 MG 2100 10/27 2100 DC 11/03 IV 2042 Hydrocortisone 50 MG BID 11/01 2100 AC 11/04 Sodium Succinate IV 0835 Lidocaine 1 PAT DAILY PRN 11/02 0945 AC EXT Lubiprostone 24 MCG BID 10/25 2200 AC 11/04 PO 0833 Magnesium Oxide 400 MG DAILY 10/25 1611 AC 11/04 PO 0834 Midodrine 7.5 MG Q8 10/29 1400 DC 11/03 PO 1327 Multivitamins 1 TAB DAILY 10/26 1000 AC 11/04 PO 0833 Oxycodone HCl 20 MG 0900,2100 10/26 0900 AC 11/01 PO 0848 Patient Medication 1 ED ONE ONE 11/03 1715 NM Teaching ED 11/03 1716 Polyethylene Glycol 17 GM DAILY 10/27 1645 AC 11/04 PO 0833 Prochlorperazine 10 MG Q6 PRN 10/25 1615 AC PO Senna/Docusate Sodium 1 TAB BID PRN 10/27 164 AC 10/30 PO 2114 Sevelamer Carbonate 3,200 MG WM 10/25 1700 AC 11/04 PO 0834 Sevelamer Carbonate 1,600 MG TID PRN 10/25 1615 AC PO Laboratory Tests 11/04/17 0737: Anion Gap 13, Estimated GFR 5 L, BUN/Creatinine Ratio 9.6, CBC w Diff NO MAN DIFF REQ, RBC 2.77 L, MCV 95.5 H, MCH 32.3 H, MCHC 33.8, RDW 17.2 H, MPV 9.0 , Gran % 85.8 H, Lymphocytes % 10.0 L, Monocytes % 4.0, Eosinophils % 0.1, Basophils % 0.1, Absolute Granulocytes 5.9, Absolute Lymphocytes 0.7 L, Absolute Monocytes 0.3, Absolute Eosinophils 0, Absolute Basophils 0 11/03/17 0618: Anion Gap 14, Estimated GFR 5 L, BUN/Creatinine Ratio 10.0, Total Bilirubin 0.5 , Direct Bilirubin 0.5 H, AST 14 L, ALT 35, Alkaline Phosphatase 87, Total Protein 5.4 L, Albumin 2.4 L, CBC w Diff NO MAN DIFF REQ, RBC 2.76 L, MCV 96.1 H, MCH 32.3 H, MCHC 33.6, RDW 18.4 H, MPV 8.8, Gran % 86.2 H, Lymphocytes % 8.7 L, Monocytes % 4.9, Eosinophils % 0.1, Basophils % 0.1, Absolute Granulocytes 6.4, Absolute Lymphocytes 0.6 L, Absolute Monocytes 0.4, Absolute Eosinophils 0, Absolute Basophils 0 11/02/17 1900: CBC w Diff NO MAN DIFF REQ, RBC 3.17 L, MCV 95.7 H, MCH 32.3 H, MCHC 33.8, RDW 18.3 H, MPV 8.9, Gran % 88.1 H, Lymphocytes % 8.5 L, Monocytes % 3.2, Eosinophils % 0.1, Basophils % 0.1, Absolute Granulocytes 7.7 H, Absolute Lymphocytes 0.7 L, Absolute Monocytes 0.3, Absolute Eosinophils 0, Absolute Basophils 0 11/02/17 1213: Ammonia < 9 L 11/02/17 0642: Anion Gap 15, Estimated GFR 5 L, BUN/Creatinine Ratio 10.3, CBC w Diff NO MAN DIFF REQ, RBC 3.03 L, MCV 97.3 H, MCH 31.9 H, MCHC 32.8 L, RDW 17.6 H, MPV 8.8, Gran % 89.7 H, Lymphocytes % 7.9 L, Monocytes % 2.0, Eosinophils % 0.3, Basophils % 0.1, Absolute Granulocytes 7.3 H, Absolute Lymphocytes 0.6 L, Absolute Monocytes 0.2, Absolute Eosinophils 0, Absolute Basophils 0 11/01/17 2300: pH 7.50 H, pCO2 30 L, pO2 78 L, HCO3 23, ABG O2 Sat (Measured) 94.0 L, Carboxyhemoglobin 0.3 L, O2 Concentration % 1L, O2 Delivery Method NC, Phlebotomy Draw Site RIGHT RADIAL 11/01/170: Anion Gap 12, Estimated GFR 5 L, BUN/Creatinine Ratio 10.1, Glucose 119 H, Calcium 8.4, Phosphorus 6.7 H, Magnesium 2.3, Troponin I 0.16 *H 11/01/17 2210: CBC w Diff NO MAN DIFF REQ, RBC 3.22 L, MCV 97.1 H, MCH 31.1 H, MCHC 32.0 L, RDW 17.9 H, MPV 8.9, Gran % 84.7 H, Lymphocytes % 8.5 L, Monocytes % 6.5, Eosinophils % 0.1, Basophils % 0.2, Absolute Granulocytes 8.5 H, Absolute Lymphocytes 0.9 L, Absolute Monocytes 0.6, Absolute Eosinophils 0, Absolute Basophils 0 Vital Signs Date Time Temp Pulse Resp B/P B/P Pulse O2 O2 Flow FiO2 Mean Ox Delivery Rate 11/04 0834 72 114/74 11/04 0622 98.2 67 18 102/68 94 Room Air 11/03 2231 97.8 75 18 138/70 93 11/03 1509 98.5 64 20 110/65 95 Nasal Cannula Intake & Output 11/04 1600 11/04 0800 11/04 0000 Intake Total 360 250 Output Total 1000 2900 Balance -640 -2650 Intake, Oral 360 250 Output, 1000 2900 Dialysate Patient 173 lb Weight Weight Bed scale Measurement Method
[2017-11-04 13:52] VITALS: BP 110/70
[2017-11-04 22:16] VITALS: BP 132/60
[2017-11-05 06:20] VITALS: BP 106/68
[2017-11-05 08:16] VITALS: BP 108/62
[2017-11-05 09:21] LABS: ABSOLUTE BASOPHIL COUNT 0 /CUMM (0.0-0.2); ABSOLUTE EOSINOPHIL COUNT 0 /CUMM (0.0-0.7); ABSOLUTE GRANULOCYTE CT 6.3 /CUMM (1.4-6.5); ABSOLUTE LYMPH COUNT 0.5 /CUMM (1.2-3.4); ABSOLUTE MONOCYTE COUNT 0.3 /CUMM (0.10-0.60); BASOPHIL % 0 % (0.0-2.0); EOSINOPHIL % 0.1 % (0-5); GRANULOCYTE % 88.2 % (42.2-75.2); HEMATOCRIT 24.2 % (42-52); MEAN CORPUSCULAR HGB 32.3 PG (27.0-31.0); MEAN CORPUSCULAR HGB CONC 33.7 G/DL (33.0-37.0); MEAN CORPUSCULAR VOLUME 95.8 FL (80.0-94.0); MEAN PLATELET VOLUME 9.3 FL (7.4-10.4); RBC DISTRIBUTION WIDTH 17.5 % (11.5-14.5); RED BLOOD CELL CT 2.53 /CUMM (4.70-6.10)
--- NOTE | 2017-11-05 09:51 | PN- Housestaff ---
Subjective Follow-up For: - Septic shock 2/2 Strep Pneumo - PNA - ESRD on PD - Acute on chronic anemia 2/2 ESRD, and MM s/p 2 units of PRBC x2 - Multiple myleoma on chemo - currently on hold - Acuet on chronic back pain - Type II NM - Hx of chronic afib on Eliquis - on hold - Acute on chronic thrombocytopenia - Intermittent epsiode of confusion 2/2 pain medication and uremia Complaints: no complaints Subjective: Patient was comfortably lying in the bed. He remained afebrile overnight. He denies shortness of breath, chest pain or palpitations. He denies abdominal pain , nausea, vomitting or diarrhea. Review of Systems Constitutional: Reports: see HPI. Denies: chills, fever. Genitourinary: Denies: dysuria, frequency, hematuria. Objective Last 24 Hrs of Vital Signs/I&O Vital Signs Date Time Temp Pulse Resp B/P B/P Pulse O2 O2 Flow FiO2 Mean Ox Delivery Rate 11/05 0816 80 108/62 11/05 0800 Room Air 11/05 0620 98.6 67 18 106/68 94 Room Air 11/04 2231 88 130/68 11/04 2216 98.2 80 18 132/60 92 Intake & Output 11/05 1600 11/05 0800 11/05 0000 Intake Total 50 4800 Output Total 1000 6000 Balance -950 -1200 Intake, 4200 Dialysate Intake, Oral 50 600 Output, 1000 6000 Dialysate Patient 167 lb Weight Weight Bed scale Measurement Method Physical Exam General Appearance: Alert, Oriented X3, Cooperative, No Acute Distress Skin: No Rashes Skin Temp/Moisture Exam: Warm/Dry Sepsis Skin Exam (color): Normal for Ethnicity HEENT: Atraumatic, PERRLA, EOMI, Mucous Membr. moist/pink Neck: Supple Lymphatic: Cervical nl Cardiovascular: Regular Rate, Normal S1, Normal S2, No Murmurs Lungs: Clear to Auscultation, Normal Air Movement Abdomen: Normal Bowel Sounds, Soft, No Tenderness, No Hepatospenomegaly Neurological: Normal Speech, Normal Tone, Cranial Nerves 3-12 NL Extremities: No Edema, Normal Pulses Current Medications: Current Medications Sig/Christie Start time Last Medication Dose Route Stop Time Status Admin Carvedilol 3.125 MG BID 10/31 1055 DCD 11/05 PO 0816 Ceftriaxone Sodium 2,000 MG 1400 04/21 1400 DCD 11/05 IV 11/05 1401 0924 Hydrocortisone 50 MG BID 11/01 2100 DCD 11/05 Sodium Succinate IV 0924 Lidocaine 1 PAT DAILY PRN 11/02 0945 DCD EXT Lubiprostone 24 MCG BID 10/25 2200 DCD 11/05 PO 0816 Magnesium Oxide 400 MG DAILY 10/25 1611 DCD 11/05 PO 0815 Multivitamins 1 TAB DAILY 10/26 1000 DCD 11/05 PO 0815 Oxycodone HCl 20 MG 0900,2100 10/26 0900 DCD 11/01 PO 0848 Polyethylene Glycol 17 GM DAILY 10/27 1645 DCD 11/05 PO 0815 Prochlorperazine 10 MG Q6 PRN 10/25 1615 DCD PO Senna/Docusate Sodium 1 TAB BID PRN 10/27 1645 DCD 11/04 PO 2231 Sevelamer Carbonate 3,200 MG WM 10/25 1700 DCD 11/05 PO 0816 Sevelamer Carbonate 1,600 MG TID PRN 10/25 1615 DCD PO Last 24 Hrs of Lab/Tyler Results Last 24 Hrs of Labs/Mics: Laboratory Tests 11/05/17 0700: Anion Gap 15, Estimated GFR 5 L, BUN/Creatinine Ratio 9.3, CBC w Diff NO MAN DIFF REQ, RBC 2.53 L, MCV 95.8 H, MCH 32.3 H, MCHC 33.7, RDW 17.5 H, MPV 9.3 , Gran % 88.2 H, Lymphocytes % 7.7 L, Monocytes % 4.0, Eosinophils % 0.1, Basophils % 0, Absolute Granulocytes 6.3, Absolute Lymphocytes 0.5 L, Absolute Monocytes 0.3, Absolute Eosinophils 0, Absolute Basophils 0 Assessment/Plan Assessment: 66-year-old gentleman with history of multiple myeloma (cyclophosphamide, bortezomib, dexamethasone + E Po-last chemo 10/18/2017), previously on hemodialysis, end-stage renal disease and currently on peritoneal dialysis came to the hospital with a chief concern of confusion, hypotension. He was initially admitted to telemetry floor and transferred to ICU for hypotension requiring central line and vasopressors for sepsis thought to be 2/2 meningitis, and or PNA, with blood cultures showing growth of Strep Pneumo. He was started on Vanc and Ceftriaxone and subsequently narrowed down to Ceftriaxone after sensitivities for Strep Pneumo came back being sensitive to penicillin. He was then trasnferred to [facility] for further management. Assessment and Plan: Septic shock secondary to strep pneumonia Patient was transferred from telemetry to ICU for persistent hypotension, fever, gram positive cocci bacteremia. Patient was found to have fever, hypotension, headache, neck stiffness with gram-positive bacteremia. Possible differentials at that time were meningitis versus pneumonia versus peritoneal fluid infection given cloudy peritoneal fluid. Patient blood cultures are positive for strep pneumonia sensitive to penicillin. CAT scan chest was done which showed multi lolobar areas of consolidation consistent with pneumonia and/or atelectasis. These are in a similar distribution to that seen in 2017 but are worse. New area of groundglass opacity apex right upper lobe. Initially patient was started on ceftriaxone 2 g daily and vancomycin 1 g daily to cover strep pneumonia, meningitis. Later blood culture turned out strep pneumonia, patient was continued on ceftriaxone 2 g daily for strep pneumonia. Vancomycin was discontinued. Patient remained afebrile with normal WBC count. Patient was also continued on acyclovir prophylactic dose. - He will require 2g of Cetriaxone for possible meningitis for a total for 10 days which has been completed today 11/05/17. ID recs appreciated. No plans for palcement of PICC line. Lethargy and confusion secondary to opiate pain medication-resolved Patient was lethragic and had intermitetnt episodes of confusion 3 days ago where he was unable to recall his birthdate etc. This was attributed to oversedation from opiate pain medications. This has improved after opiates were discontinued. Hypotension Patient was found to have persistent hypotension with SBP varying between 60-70 on admission. He was transferred from telemetry to ICU for central line placement and hypotension management. Right IJ central line was placed, started on levophed. Later levophed was titrated off once his SBP was 90. Off note his baseline blood pressure varies between 80-90. Triple lumen catheter was removed on 10/27/2017 at bedside with the no complications. - Patient was also started on midodrine 5 mg 3 times daily (now discontunued as per cardiology) -He was on IV hydrocortisone but this will be stopped as his blood pressure is improved. Acute on chronic thrombocytopenia - Patient's platelet count took a marielena from 88-->47-->36---34--->33--->38 and since then have remained stable. - Most likely drug induced (?B-lactam). Workup for DIC was negative, and heparin antibody panel was negative. -Patient will be discharged and should check his CBC again this week and follow up with his travel accommodation inspector for his thrombocytopenia Acute on chronic anemia s/p tx with 2 PRBC - H&H stable. Thsi AM labs pending - Patient received 2 units of PRBCs during this admission - Goal H&H > 8/25 - Of note his stools were quiac negative. End-stage renal disease on peritoneal dialysis Peritoneal dialysis as per service cashier recommendations. D/C Heparin 2000 units per dialysis bag, as per service cashier. Monitor for electrolyte shifts. D/C peritoneal fluid cell count and cultures monitoring. F/U with nephro regarding freequency and the dialysate fluid. Pain Management/ multiple myeloma (cyclophosphamide, bortezomib, dexamethasone + E Po-last chemo 10/18/2017) Continue to hold oxycodone PRN for now. continue lidoderm patch PRN MRI of total spine was done that showed interval collapse of the T4 vertebral body and there may be mild associated bone marrow edema as well. Paroxysmal atrial fibrillation - Currently rate controlled. - Resumed Co-reg. - Meanwhile continue to hold Eliquis given thromobocytopenia Type II NM - Elevated troponin and no EKG changes possibly from demand supply mismatch and hypotension DVT prophylaxis On alps given thrombocytopenia Diet reg diet Patient's family refused renal dialysis diet Code Status Full Code Problem List: 1. Pneumonia Pain Ratin Pain Location: None Pain Goal: Remain pain free Pain Plan: Lidoderm patch Tomorrow's Labs & Rationales: None needed DVT/Prophylaxis: mechanical Consulting Request: Consulting Specialty: Nephrology Discharge Plan Discharge Disposition: home
--- NOTE | 2017-11-05 10:03 | PN- Infect Dx ---
Subjective Subjective: Afebrile on steroids. He feels well with no complaints Objective Last 24 Hrs of Vital Signs/I&O Vital Signs Date Time Temp Pulse Resp B/P B/P Pulse O2 O2 Flow FiO2 Mean Ox Delivery Rate 11/05 0816 80 108/62 11/05 0620 98.6 67 18 106/68 94 Room Air 11/04 2231 88 130/68 11/04 2216 98.2 80 18 132/60 92 11/04 1352 97.6 72 18 110/70 92 Intake & Output 11/05 1600 11/05 0800 11/05 0000 Intake Total 50 4800 Output Total 1000 6000 Balance -950 -1200 Intake, 4200 Dialysate Intake, Oral 50 600 Output, 1000 6000 Dialysate Patient 167 lb Weight Weight Bed scale Measurement Method Physical Exam Other Physical Findings: He appears comfortable in no acute distress Neck is supple with no tenderness Lungs are clear Heart regular rhythm with a 2/6 systolic ejection murmur Extremities no cyanosis, clubbing or edema Results Last 24 Hours of Lab Results: Laboratory Tests 11/05 0700 Chemistry Sodium (137 - 145 mmol/L) 136 L Potassium (3.5 - 5.1 mmol/L) 4.0 Chloride (98 - 107 mmol/L) 94 L Carbon Dioxide (22 - 30 mmol/L) 26 Anion Gap (5 - 16) 15 BUN (9 - 20 mg/dL) 95 H Creatinine (0.7 - 1.2 mg/dL) 10.2 *H Estimated GFR (>60 ml/min) 5 L BUN/Creatinine Ratio (7 - 25 %) 9.3 Hematology CBC w Diff Pending WBC Pending RBC Pending Hgb Pending Hct Pending MCV Pending MCH Pending MCHC Pending RDW Pending Plt Count Pending MPV Pending Gran % Pending Lymphocytes % Pending Monocytes % Pending Eosinophils % Pending Basophils % Pending Absolute Granulocytes Pending Absolute Lymphocytes Pending Absolute Monocytes Pending Absolute Eosinophils Pending Absolute Basophils Pending Last 24 Hours of Tyler Results: No recent cultures Assessment/Plan ID Impression: Stable, with temperatures and white blood cell count remaining normal (on steroids), now Day 10 of Ceftriaxone for pneumococcal sepsis, possibly secondary to pneumonia or meningitis or peritonitis secondary to his Tenckhoff catheter. His thrombocytopenia was improved yesterday and may be multifactorial. Suggestion: 1. Discontinue Ceftriaxone after today's dose and follow off antibiotics
[2017-11-05 11:05] LABS: PLATELET COUNT 47 /CUMM (130-400); WHITE BLOOD CELL COUNT 7.2 /CUMM (4.8-10.8)
--- NOTE | 2017-11-05 12:01 | PN- Att Addend ---
Attending Addendum Attending Brief Note Patient seen and examined. Plan of care discussed with the medical team and the patient. Available lab work and radiology test reports were reviewed. Patient is lying in bed comfortably. His is at bedside. Patient denies any new complaints. No recent fever chills chest pain or difficulty breathing. He was able to work with physical therapy and was able to negotiate stairs. Exam: General: Patient awake alert oriented without any distress CVS: S1 plus S2 without any murmur or gallops Chest: Few scattered crepitation without any wheeze. There is no respiratory distress. Abdomen: Soft non-tender, bowel sound present, no guarding or rebound RECREATIONAL COUNSELOR: Awake alert oriented without any focal neuro deficit and follows commands appropriately Extremities: No edema; no clubbing or cyanosis noted Assessment 1. Hypotension, improved 2. Multiple myeloma 3. Anemia requiring transfusion 4. Paroxysmal atrial fibrillation on low-dose eliquis and with implantable loop recorder 5. End-stage renal disease on peritoneal dialysis 6. History of hypertension on outpatient low-dose coreg 7. Elevated troponin due to end-stage renal disease and hypotension 8. Septic shock/bacteremia due to strep pneumoniae 9. Thrombocytopenia Plan * Patient has completed ceftriaxone course * Plan for discharge home today * Discontinue hydrocortisone * Patient follow with the hematology as outpatient thrombocytopenia. He should have a CBC checked before his next appointment Current Medications Sig/Christie Start time Last Medication Dose Route Stop Time Status Admin Carvedilol 3.125 MG BID 10/31 1055 AC 11/05 PO 0816 Ceftriaxone Sodium 2,000 MG 1400 11/04 1400 AC 11/05 IV 11/05 1401 0924 Hydrocortisone 50 MG BID 11/01 2100 AC 11/05 Sodium Succinate IV 0924 Lidocaine 1 PAT DAILY PRN 11/02 0945 AC EXT Lubiprostone 24 MCG BID 10/25 2200 AC 11/05 PO 0816 Magnesium Oxide 400 MG DAILY 10/25 1611 AC 11/05 PO 0815 Multivitamins 1 TAB DAILY 10/26 1000 AC 11/05 PO 0815 Oxycodone HCl 20 MG 0900,2100 10/26 0900 AC 11/01 PO 0848 Polyethylene Glycol 17 GM DAILY 10/27 1645 AC 11/05 PO 0815 Prochlorperazine 10 MG Q6 PRN 10/25 1615 AC PO Senna/Docusate Sodium 1 TAB BID PRN 04/13 1645 AC 11/04 PO 2231 Sevelamer Carbonate 3,200 MG WM 10/25 1700 AC 11/05 PO 0816 Sevelamer Carbonate 1,600 MG TID PRN 10/25 1615 PO Laboratory Tests 11/05/17 0700: Anion Gap 15, Estimated GFR 5 L, BUN/Creatinine Ratio 9.3, CBC w Diff NO MAN DIFF REQ, RBC 2.53 L, MCV 95.8 H, MCH 32.3 H, MCHC 33.7, RDW 17.5 H, MPV 9.3 , Gran % 88.2 H, Lymphocytes % 7.7 L, Monocytes % 4.0, Eosinophils % 0.1, Basophils % 0, Absolute Granulocytes 6.3, Absolute Lymphocytes 0.5 L, Absolute Monocytes 0.3, Absolute Eosinophils 0, Absolute Basophils 0 11/04/17 0737: Anion Gap 13, Estimated GFR 5 L, BUN/Creatinine Ratio 9.6, CBC w Diff NO MAN DIFF REQ, RBC 2.77 L, MCV 95.5 H, MCH 32.3 H, MCHC 33.8, RDW 17.2 H, MPV 9.0 , Gran % 85.8 H, Lymphocytes % 10.0 L, Monocytes % 4.0, Eosinophils % 0.1, Basophils % 0.1, Absolute Granulocytes 5.9, Absolute Lymphocytes 0.7 L, Absolute Monocytes 0.3, Absolute Eosinophils 0, Absolute Basophils 0 11/03/17 0618: Anion Gap 14, Estimated GFR 5 L, BUN/Creatinine Ratio 10.0, Total Bilirubin 0.5 , Direct Bilirubin 0.5 H, AST 14 L, ALT 35, Alkaline Phosphatase 87, Total Protein 5.4 L, Albumin 2.4 L, CBC w Diff NO MAN DIFF REQ, RBC 2.76 L, MCV 96.1 H, MCH 32.3 H, MCHC 33.6, RDW 18.4 H, MPV 8.8, Gran % 86.2 H, Lymphocytes % 8.7 L, Monocytes % 4.9, Eosinophils % 0.1, Basophils % 0.1, Absolute Granulocytes 6.4, Absolute Lymphocytes 0.6 L, Absolute Monocytes 0.4, Absolute Eosinophils 0, Absolute Basophils 0 11/02/17 1900: CBC w Diff NO MAN DIFF REQ, RBC 3.17 L, MCV 95.7 H, MCH 32.3 H, MCHC 33.8, RDW 18.3 H, MPV 8.9, Gran % 88.1 H, Lymphocytes % 8.5 L, Monocytes % 3.2, Eosinophils % 0.1, Basophils % 0.1, Absolute Granulocytes 7.7 H, Absolute Lymphocytes 0.7 L, Absolute Monocytes 0.3, Absolute Eosinophils 0, Absolute Basophils 0 11/02/17 1213: Ammonia < 9 L Vital Signs Date Time Temp Pulse Resp B/P B/P Pulse O2 O2 Flow FiO2 Mean Ox Delivery Rate 11/05 0816 80 108/62 11/05 0800 Room Air 11/05 0620 98.6 67 18 106/68 94 Room Air 11/04 2231 88 130/68 11/04 2216 98.2 80 18 132/60 92 11/04 1352 97.6 72 18 110/70 92 Intake & Output 11/05 1600 11/05 0800 11/05 0000 Intake Total 50 4800 Output Total 1000 6000 Balance -950 -1200 Intake, 4200 Dialysate Intake, Oral 50 600 Output, 1000 6000 Dialysate Patient 167 lb Weight Weight Bed scale Measurement Method Total time spent in preparation for discharge plan, patient education, and CMR preparation was 35 minutes.
== END 2017-11-05 12:20 | disposition home health service (06) | DRG 871 ==
LOC: ERH 09:25 → 1NO 12:18 → ERHI 12:18 → ENRESERV 17:43 → 1NO 19:32 → CRI 10-26 16:29 → 2NA 10-26 17:53 → CRI 10-26 17:53 → ENTRNSPT 10-29 18:43 → EDTRNSPTSTS 10-29 18:59 → EDTRNSPT 10-29 18:59 → 2NA 10-29 19:31 → CMPTRNSPT 10-29 19:41 → 2NA 10-30 07:30 → ENPENDDIS 11-05 11:20 → 2NA 11-05 12:20 → ENTRNSPT 11-05 12:24 → EDTRNSPTSTS 11-05 13:03 → EDTRNSPT 11-05 13:03 → CMPTRNSPT 11-05 13:14
PROVIDERS: Emergency Medicine; Hospitalist; Internal Medicine; Internal Medicine Infectious Disease; Internal Medicine Interventional Cardiology; Internal Medicine Nephrology; Radiology Vascular & Interventional Radiology; Student in an Organized Health Care Education/Training Program
PROC: 3E1M39Z Irrigation of Peritoneal Cavity using Dialysate, Percutaneous Approach (ICD-10-PCS; 2017-10-26)
PROC: 30233N1 Transfusion of Nonautologous Red Blood Cells into Peripheral Vein, Percutaneous Approach (ICD-10-PCS; 2017-10-26)
PROC: 05HM33Z Insertion of Infusion Device into Right Internal Jugular Vein, Percutaneous Approach (ICD-10-PCS; principal; 2017-10-27)
DX: A40.3 Sepsis due to Streptococcus pneumoniae (principal); I21.A1 Myocardial infarction type 2; R65.21 Severe sepsis with septic shock; G00.1 Pneumococcal meningitis; E87.2 Acidosis; J13 Pneumonia due to Streptococcus pneumoniae; D69.6 Thrombocytopenia, unspecified; C90.00 Multiple myeloma not having achieved remission; I12.0 Hypertensive chronic kidney disease with stage 5 chronic kidney disease or end stage renal disease; N18.6 End stage renal disease; F05 Delirium due to known physiological condition; I95.9 Hypotension, unspecified; I48.0 Paroxysmal atrial fibrillation; R09.02 Hypoxemia; G89.29 Other chronic pain; M81.0 Age-related osteoporosis without current pathological fracture; Z92.21 Personal history of antineoplastic chemotherapy; D63.1 Anemia in chronic kidney disease; E78.5 Hyperlipidemia, unspecified; E86.0 Dehydration; M54.5 Low back pain; M54.2 Cervicalgia; Z90.49 Acquired absence of other specified parts of digestive tract; Z98.890 Other specified postprocedural states; Z99.2 Dependence on renal dialysis; Z79.01 Long term (current) use of anticoagulants
CPT/HCPCS: 2NAP; 72141; 72146; 72148; 87070; 87075; 87205; CCU; 36415; 36592; 71045; 80307; 82436; 86920; 87040; 87086; 93005; 93010; 93306; 94799; 96374; 97110-GO; 97116-GO; 97530-GO; G0480; J0131; J0696; J1644; J1720; J3370; J7040; J7042; J7060; P9016

== ENCOUNTER 2017-11-10 00:07 | Emergency (ER) | payer OTHER, MEDICARE ==
[~2017-11-10] VITALS: Ht 172.7 cm; Wt 71.2 kg
[~2017-11-10 00:07] MED LIST changes: +AMITIZA24 MC1 PO; +CEFTRIAXONE2 G2 IV; +ELIQUIS2.5 M1 PO; +MIDODRINE HCL2.5 M1 PO
--- NOTE | 2017-11-10 00:15 | ED GENERAL ADULT ---
History of Present Illness General Chief Complaint: Altered Mental Status Stated Complaint: BIBA FOR EVAL OF AMS Source: patient, family, EMS Exam Limitations: no limitations Vital Signs & Intake/Output Vital Signs & Intake/Output Vital Signs Date Time Temp Pulse Resp B/P B/P Pulse O2 O2 Flow FiO2 Mean Ox Delivery Rate 11/10 0301 90 20 110/66 98 11/10 0015 99.4 98 18 107/74 98 Room Air Allergies Coded Allergies: NO KNOWN ALLERGIES (06/29/16) Reconcile Medications Acyclovir 200 MG CAPSULE 1 CAP PO DAILY SHINGLE PREVENTION (Reported) Carvedilol 3.125 MG TABLET 1 TAB PO BID BLOOD PRESSURE Lubiprostone (Amitiza) 24 MCG CAPSULE 1 CAP PO BID GI (Reported) Magnesium Oxide 400 MG TABLET 1 TAB PO DAILY HYPOMAGNESEMIA Oxycodone HCl 10 MG TABLET 1-2 TAB PO Q4-6H PRN PAIN (Reported) Oxycodone HCl (Oxycodone HCl ER) 20 MG TAB.ER.12H 1 TAB PO BID PAIN (Reported ) Prochlorperazine Maleate 10 MG TABLET 1 TAB PO Q6 PRN N/V (Reported) Sevelamer Carbonate (Renvela) 800 MG TABLET 4 TAB PO WM KIDNEYS (Reported) Sevelamer Carbonate (Renvela) 800 MG TABLET 2 TAB PO TID PRN KIDNEYS ( Reported) Vit B Cmplx 3/FA/Vit C/Biotin (Nephro-Nola Rx Tablet) 1 MG-60 MG-300 MCG TABLET 1 TAB PO DAILY SUPPLEMENT (Reported) Triage Nurses Notes Reviewed? yes Unable To Obtain Hx Due To: patient nonverbal Onset: Gradual Duration: day(s): Timing: recent history Injury Environment: home Severity: moderate Modifying Factors: Improves With: rest. Associated Symptoms: weakness and mental status change HPI: 66 yo gentleman h/o multiple myeloma, esrd on peritoneal dialysis, h/o recent admission for pneumonia, presents with mental status change and weakness. Per his , "he just became really confused... He didn't know who I was.... His blood pressure was low... in the 70's.... He didn't have dialysis today because of that... He is doing better now." He notes a temperature of 100.1 at home. Past History Travel History Traveled to [place] past 21 day No Medical History Any Pertinent Medical History? see below for history Neurological: NONE EENT: NONE Cardiovascular: AFIB, hypertension Respiratory: NONE Renal: END-STAGE RENAL DISEASE ON PERITONEAL Musculoskeletal: chronic back pain, osteoporosis Psychiatric: NONE Endocrine: NONE Blood Disorders: MULTIPLE MYELOMA History of MRSA: No History of VRE: No History of CDIFF: No Influenza Vaccine: 03/17/16 Surgical History Surgical History: appendectomy Psychosocial History Who do you live with Family Services at Home None What is your primary language French Family History Family History, If Any: Relation not specified for: FH: colon cancer Hx Contributory? No Review of Systems Review of Systems Constitutional: Reports: no symptoms. EENTM: Reports: no symptoms. Respiratory: Reports: no symptoms. Cardiovascular: Reports: no symptoms. GI: Reports: no symptoms. Genitourinary: Reports: no symptoms. Musculoskeletal: Reports: no symptoms. Skin: Reports: no symptoms. Neurological/Psychological: Reports: no symptoms. Hematologic/Endocrine: Reports: no symptoms. Immunologic/Allergic: Reports: no symptoms. All Other Systems: Reviewed and Negative Physical Exam Physical Exam General Appearance: well developed/nourished, mild distress Head: atraumatic, normal appearance Eyes: Bilateral: normal appearance. Ears, Nose, Throat: normal pharynx, normal ENT inspection, dry mucosa Neck: normal inspection, supple, full range of motion Respiratory: normal breath sounds, chest non-tender, no respiratory distress Cardiovascular: regular rate/rhythm Gastrointestinal: normal bowel sounds, soft, non-tender, no organomegaly, dialysis catheter intact Back: normal inspection, normal range of motion Extremities: normal inspection, normal capillary refill, normal range of motion, no edema Neurologic/Psych: no motor/sensory deficits, awake Skin: intact, normal color, warm/dry Core Measures ACS in differential dx? No CVA/TIA Diagnosis: No Sepsis Present: No Sepsis Focused Exam Completed? No Progress Differential Diagnoses I considered the following diagnoses in my evaluation of the patient: pneumonia, dehydration, sepsis, shock vs other. Plan of Care: Orders Procedure Date/time Status TROPONIN LEVEL 11/10 13 Complete LIPASE 11/10 13 Complete HEPATIC FUNCTION PANEL 11/10 13 Complete CBC WITHOUT DIFFERENTIAL 11/10 13 Complete BASIC METABOLIC PANEL 11/10 13 Complete AMYLASE 11/10 13 Complete EKG 11/10 13 Active Laboratory Tests 11/10/17 0029: Anion Gap 18 H, Estimated GFR 4 L, BUN/Creatinine Ratio 6.4 L, Glucose 100 H , Calcium 8.0 L, Total Bilirubin 0.5, Direct Bilirubin 0.5 H, AST 13 L, ALT 32, Alkaline Phosphatase 102, Troponin I 0.07, Total Protein 6.3, Albumin 2.8 L , Amylase < 30 L, Lipase 87, CBC w Diff NO MAN DIFF REQ, RBC 2.48 L, MCV 96.4 H, MCH 33.3 H, MCHC 34.6, RDW 18.5 H, MPV 8.1, Gran % 79.0 H, Lymphocytes % 9.4 L, Monocytes % 10.9 H, Eosinophils % 0.6, Basophils % 0.1, Absolute Granulocytes 4.4, Absolute Lymphocytes 0.5 L, Absolute Monocytes 0.6, Absolute Eosinophils 0, Absolute Basophils 0 Diagnostic Imaging: Viewed by Me: Radiology Read, CT Scan. Discussed w/RAD: Radiology Read, CT Scan. Radiology Impression: PATIENT: JUAN A DU PRESENT AGE: 66 PATIENT ACCOUNT NO: [id number] : 52 LOCATION: [facility] ORDERING PHYSICIAN: Andrew Sandhu MD SERVICE DATE: 11/10/17 EXAM TYPE: CAT - CT HEAD WO IV CONTRAST EXAMINATION: CT HEAD WITHOUT CONTRAST CLINICAL INFORMATION: Mental status change COMPARISON: 10/25/2017 TECHNIQUE: Contiguous axial imaging was performed from the skull base to vertex without intravenous administration of contrast. DLP: 1171.21 mGy-cm FINDINGS: There is no evidence of acute intracranial hemorrhage or territorial infarction. No abnormal mass effect or midline shift is seen. Carreno to white matter differentiation is well preserved. No extra-axial fluid collections are identified. The ventricles are normal in size. There is no abnormal attenuation within the brain parenchyma. The osseous structures and soft tissues are normal. A small mucous retention cyst is noted in the left maxillary sinus. The mastoid air cells are well- aerated. IMPRESSION: No acute intracranial pathology. DICTATED BY: Isaac Bae MD DATE/TIME DICTATED:11/10/17122 PROJECT MANAGER INDUSTRIAL:YULIET DATE/TIME TRANSCRIBED:11/10/17122 CONFIDENTIAL, DO NOT COPY WITHOUT APPROPRIATE AUTHORIZATION. <Electronically signed in Other Vendor System> SIGNED BY: Isaac Bae MD 11/10/17 0131 CXR Impression: PATIENT: JUAN A DU PRESENT AGE: 66 PATIENT ACCOUNT NO: [id number] : 52 LOCATION: [facility] ORDERING PHYSICIAN: Andrew Sandhu MD SERVICE DATE: 11/10/17 EXAM TYPE: RAD - XRY- PORTABLE CHEST XRAY EXAMINATION: XR PORTABLE CHEST CLINICAL INFORMATION: Chest pain COMPARISON: 11/01/2017 TECHNIQUE: Portable frontal view of the chest was obtained. FINDINGS: The lungs are hypoinflated, which limits evaluation. No definite consolidation. No evidence of pneumothorax. Trace left pleural effusion is suspected. No overt pulmonary edema. The cardiac silhouette appears somewhat prominent, likely accentuated by low lung volumes. No acute osseous findings are seen. IMPRESSION: Low lung volumes without definite consolidation. Trace left pleural effusion. DICTATED BY: Isaac Bae MD DATE/TIME DICTATED:11/10/17120 PROJECT MANAGER INDUSTRIAL:YULIET DATE/TIME TRANSCRIBED:11/10/17120 CONFIDENTIAL, DO NOT COPY WITHOUT APPROPRIATE AUTHORIZATION. <Electronically signed in Other Vendor System> SIGNED BY: Isaac Bae MD 11/10/177 Initial ED EKST DEGREE AV BLOCK, NO ACUTE CHANGES. Departure Departure Disposition: OTHER GENERAL HOSPITAL (ACUTE) Condition: Stable Clinical Impression Primary Impression: Weakness Referrals: Frederic KRISHNAMURTHY,Tad Navarro (PCP/Family) Departure Forms: Customer Survey General Discharge Information Comments discussed at length with patient and . They feel comfortable going home, prescribed close follow up if not better. Critical Care Note Critical Care Note Critical Care Time: non-applicable
[2017-11-10 00:37] LABS: ABSOLUTE BASOPHIL COUNT 0 /CUMM (0.0-0.2); ABSOLUTE EOSINOPHIL COUNT 0 /CUMM (0.0-0.7); ABSOLUTE GRANULOCYTE CT 4.4 /CUMM (1.4-6.5); ABSOLUTE LYMPH COUNT 0.5 /CUMM (1.2-3.4); ABSOLUTE MONOCYTE COUNT 0.6 /CUMM (0.10-0.60); BASOPHIL % 0.1 % (0.0-2.0); EOSINOPHIL % 0.6 % (0-5); HEMATOCRIT 23.9 % (42-52); MEAN CORPUSCULAR HGB 33.3 PG (27.0-31.0); MEAN CORPUSCULAR HGB CONC 34.6 G/DL (33.0-37.0); MEAN CORPUSCULAR VOLUME 96.4 FL (80.0-94.0); MEAN PLATELET VOLUME 8.1 FL (7.4-10.4); RBC DISTRIBUTION WIDTH 18.5 % (11.5-14.5); RED BLOOD CELL CT 2.48 /CUMM (4.70-6.10); WHITE BLOOD CELL COUNT 5.6 /CUMM (4.8-10.8)
[2017-11-10 00:46] LABS: PLATELET COUNT 99 /CUMM (130-400)
--- NOTE | 2017-11-10 01:27 | RADIOLOGY REPORT ---
EXAMINATION: XR PORTABLE CHEST CLINICAL INFORMATION: Chest pain COMPARISON: 11/01/2017 TECHNIQUE: Portable frontal view of the chest was obtained. FINDINGS: The lungs are hypoinflated, which limits evaluation. No definite consolidation. No evidence of pneumothorax. Trace left pleural effusion is suspected. No overt pulmonary edema. The cardiac silhouette appears somewhat prominent, likely accentuated by low lung volumes. No acute osseous findings are seen. IMPRESSION: Low lung volumes without definite consolidation. Trace left pleural effusion.
--- NOTE | 2017-11-10 01:31 | CT SCAN REPORT ---
EXAMINATION: CT HEAD WITHOUT CONTRAST CLINICAL INFORMATION: Mental status change COMPARISON: 10/25/2017 TECHNIQUE: Contiguous axial imaging was performed from the skull base to vertex without intravenous administration of contrast. DLP: 1171.21 mGy-cm FINDINGS: There is no evidence of acute intracranial hemorrhage or territorial infarction. No abnormal mass effect or midline shift is seen. Carreno to white matter differentiation is well preserved. No extra-axial fluid collections are identified. The ventricles are normal in size. There is no abnormal attenuation within the brain parenchyma. The osseous structures and soft tissues are normal. A small mucous retention cyst is noted in the left maxillary sinus. The mastoid air cells are well-aerated. IMPRESSION: No acute intracranial pathology.
[2017-11-10 03:01] VITALS: BP 110/66
== END 2017-11-10 03:02 ==
LOC: ERH 00:07
PROVIDERS: Pediatrics
DX: R53.1 Weakness (principal)
CPT/HCPCS: 71045; 93005; 93010

== ENCOUNTER 2017-11-20 13:54 | Inpatient (IN) | payer OTHER, MEDICARE ==
[~2017-11-20] VITALS: Ht 172.7 cm; Wt 62.9 kg
--- NOTE | 2017-11-20 15:11 | ED GENERAL ADULT ---
See Addendum History of Present Illness General Chief Complaint: General Adult Stated Complaint: CHEST CONGESTION/MUCOUS,LOW BP Source: patient, family Exam Limitations: confusion Vital Signs & Intake/Output Vital Signs & Intake/Output Vital Signs Date Time Temp Pulse Resp B/P B/P Pulse O2 O2 Flow FiO2 Mean Ox Delivery Rate 11/20 1514 96 Room Air Room Air 11/20 1432 99.1 122 22 90/60 94 Room Air Room Air Allergies Coded Allergies: oxycodone (Intermediate, DELERIUM 11/20/17) Reconcile Medications Acyclovir 200 MG CAPSULE 1 CAP PO DAILY SHINGLE PREVENTION (Reported) Carvedilol 3.125 MG TABLET 1 TAB PO BID BLOOD PRESSURE Lubiprostone (Amitiza) 24 MCG CAPSULE 1 CAP PO BID GI (Reported) Magnesium Oxide 400 MG TABLET 1 TAB PO DAILY HYPOMAGNESEMIA Oxycodone HCl 10 MG TABLET 1-2 TAB PO Q4-6H PRN PAIN (Reported) Oxycodone HCl (Oxycodone HCl ER) 20 MG TAB.ER.12H 1 TAB PO BID PAIN (Reported ) Prochlorperazine Maleate 10 MG TABLET 1 TAB PO Q6 PRN N/V (Reported) Sevelamer Carbonate (Renvela) 800 MG TABLET 4 TAB PO WM KIDNEYS (Reported) Sevelamer Carbonate (Renvela) 800 MG TABLET 2 TAB PO TID PRN KIDNEYS ( Reported) Vit B Cmplx 3/FA/Vit C/Biotin (Nephro-Nola Rx Tablet) 1 MG-60 MG-300 MCG TABLET 1 TAB PO DAILY SUPPLEMENT (Reported) Triage Note: PT TO TO TRIAGE FOR COUGH, WEAKNESS, AND LETHARGY STARTING THIS WEEK. PT WAS D/C THE FOR PNA, NAD HAS HAD THE COUGH SINCE. PT DENIES FEVERS, DENIES CP. HE IS ALERT AND ORIENTED. HE IS CURRENTLY GETTING CHEMO FOR LYMPHOMA, MONDAY BEING MOST RECENT. PT GIVEN MASK AND BROUGHT TO RM 12 TO BE EVALED BY IMMEDIATELY, HR 122 Triage Nurses Notes Reviewed? yes HPI: Patient is a 66-year-old male with past medical history of lymphoma currently on chemotherapy, with a recent hospitalization for pneumonia with sepsis, who is brought back in by his for worsening of his cough. Vital signs at triage are significant for tachycardia. Patient feels febrile, and according to his is confused as compared to baseline. Upon my initial encounter the patient is indeed confused, and has audible rhonchi and productive cough. Past History Travel History Traveled to [place] past 21 day No Medical History Any Pertinent Medical History? see below for history Neurological: NONE EENT: NONE Cardiovascular: AFIB, hypertension Respiratory: NONE Renal: END-STAGE RENAL DISEASE ON PERITONEAL Musculoskeletal: chronic back pain, osteoporosis Psychiatric: NONE Endocrine: NONE Blood Disorders: MULTIPLE MYELOMA History of MRSA: No History of VRE: No History of CDIFF: No Surgical History Surgical History: appendectomy Psychosocial History Who do you live with Family Services at Home None What is your primary language Icelandic Tobacco Use: Never used ETOH Use: denies use Illicit Drug Use: denies illicit drug use Family History Family History, If Any: Relation not specified for: FH: colon cancer Hx Contributory? No Review of Systems Review of Systems Constitutional: Reports: see HPI. EENTM: Reports: no symptoms. Respiratory: Reports: orthopnea, short of breath. Cardiovascular: Reports: palpitations. GI: Reports: no symptoms. Genitourinary: Reports: no symptoms. Musculoskeletal: Reports: no symptoms. Skin: Reports: no symptoms. Neurological/Psychological: Reports: no symptoms. Hematologic/Endocrine: Reports: no symptoms. Immunologic/Allergic: Reports: no symptoms. All Other Systems: Reviewed and Negative Comments Other than the features mentioned in history of present illness above, a detailed review of systems was not possible secondary to the patient's confusion Physical Exam Physical Exam General Appearance: alert, comfortable Comments: HEENT: Inspection of the head reveals a normocephalic cranium with no signs of trauma. Ophtho: Extraocular muscles are intact and pupils are equal and reactive to light bilaterally with no afferent pupillary defect. The sclera are noninjected , and there is no obvious discharge. Neck: The trachea is midline, there is no obvious asymmetry or mass over the thyroid, and there is no wincing on palpation of the midline cervical spine. Respiratory: Diffuse rhonchorous breath sounds. The patient exhibits no signs of labored breathing. Cardiac: Tachycardia without appreciable murmurs on auscultation. No obvious JVD. GI: Examination of the abdomen reveals no significant wincing on deep palpation. : Deferred Neuro: Focused neurologic examination was attempted, but secondary to the patient's confusion, it was extremely limited. Features that were obtainable included equal pupils and a lack of gross focal motor abnormality on patient's limited passive motion. Behavioral: Anxious, confused. Dermatologic: Dermatologic examination reveals no diffuse rashes or exanthems, no petechiae, no ecchymoses, and no other signs of erythema or infection. Core Measures ACS in differential dx? No CVA/TIA Diagnosis: No Sepsis Present: No (Pathway started, lactate neg) Sepsis Focused Exam Completed? Yes Progress Differential Diagnoses I considered the following diagnoses in my evaluation of the patient: Flash pulmonary edema, CHF, pneumonia, hospital-acquired pneumonia, community acquired pneumonia Plan of Care: Orders Procedure Date/time Status Add-on Test (ER Only) 11/20 1634 Active LACTIC ACID 11/20 1554 Complete BLOOD CULTURE 11/20 1553 Active XRY-PORTABLE CHEST XRAY 11/20 1507 Active Vital Signs 11/20 1507 Active Telemetry/Java Developer Consultant 11/20 1507 Active BLOOD CULTURE 11/20 1507 Active URINALYSIS 11/20 1507 Active PARTIAL THROMBOPLASTIN TIME 11/20 1507 Complete PROTHROMBIN TIME 11/20 1507 Complete PHOSPHORUS 11/20 1507 Complete MAGNESIUM 11/20 1507 Complete COMPREHENSIVE METABOLIC PANEL 11/20 1507 Complete CBC WITHOUT DIFFERENTIAL 11/20 1507 Complete B-TYPE NATRIURETIC PEP (BNP) 11/20 1507 Complete EKG 11/20 1507 Active Current Medications Sig/Christie Start time Last Medication Dose Stop Time Status Admin Sodium Chloride 1,980 ML ONCE 11/20 1515 AC (Normal Saline 0.9%) Laboratory Tests 11/20/17 1554: Anion Gap 16, Estimated GFR 5 L, BUN/Creatinine Ratio 5.0 L, Glucose 101 H, Lactic Acid 1.8, Calcium 8.5, Phosphorus 6.8 H, Magnesium 1.5 L, Total Bilirubin 0.9, AST 12 L, ALT 18 L, Alkaline Phosphatase 72, Lym-M-Yvapkxhsilr Pept 64482 H, Total Protein 7.1, Albumin 3.2 L, Globulin 3.9, Albumin/Globulin Ratio 0.8 L 11/20/17 1510: PT 12.4, INR 1.14, APTT 25, CBC w Diff NO MAN DIFF REQ, RBC 2.78 L, MCV 97.6 H , MCH 32.1 H, MCHC 32.9 L, RDW 18.6 H, MPV 7.7, Gran % 72.1, Lymphocytes % 14.6 L, Monocytes % 11.2 H, Eosinophils % 0.3, Basophils % 1.8, Absolute Granulocytes 3.5, Absolute Lymphocytes 0.7 L, Absolute Monocytes 0.5, Absolute Eosinophils 0, Absolute Basophils 0.1 Microbiology 11/20 1615 BLOOD: Blood Culture - RECD 11/20 1554 BLOOD: Blood Culture - RECD 11/20 1531 BLOOD: Blood Culture - CAN Cancelled: Cancelled via OE: DUPLICATE ORDER Initial ED EKG: INITIAL ecg PERFORMED AT 1527 HRS. sINUS TACHYCARDIA WITH A RATE OF 117 BPM. aLL AXIS. nORMAL INTERVALS. nO ISCHEMIC st SEGMENT CHANGES. aS COMPARED TO PRIOR ecg FROM 11/10/2017, THE RATE IS FASTER BUT OTHERWISE THERE ARE NO SIGNIFICANT CHANGES. Comments: Patient with recent admission for pneumonia with sepsis presented as a return visit for worsening respiratory status. He had all crackles and rhonchi up to the clavicles and even during interview. Chest x-ray shows pulmonary edema, and BNP was greater than 20,000. Lactate was negative, thus sepsis pathway was not followed through to completion. However, patient had cultures drawn and received antibiotics. Patient had tachycardia, and they requested discharge home but I do not feel that home peritoneal dialysis would adequately address his pulmonary edema given the degree of fluid overload in the lungs but the lack of fluid overload everywhere else. They understood this and agreed to hospitalization. We paged the nephrology and cardiology groups, and at the time of shift change we were awaiting their call back. Care transitioned to Dr. Vaughn who will follow-up on their recommendations and admitted to the appropriate service. Departure Departure Disposition: STILL A PATIENT Condition: Stable Clinical Impression Primary Impression: Pulmonary edema Qualifiers: Chronicity: acute Qualified Code: J81.0 - Acute pulmonary edema Referrals: Frederic KRISHNAMURTHY,Tad Navarro (PCP/Family) Departure Forms: Customer Survey General Discharge Information Admission Note Documentation of Exam: Documentation of any treatments & extenuating circumstances including Concerns Regarding Discharge (functional status, medication knowledge or non-compliance, living conditions, etc.) that warrant an admission rather than observation: Hospitalization with critical given the patient's tachycardia, hypotension, and hypoxia to 88% on room air even without activity. I feel that discharge home would present an unwarranted risk to his respiratory status and would also risk unrecognized new onset CHF. Critical Care Note Critical Care Note Critical Care Time: 75-104 min Comments: Critical care time spent >60 minutes. The patient was suffering from a critical illness that acutely impairs one or more vital organ systems and there is a high probability of imminent or life threatening deterioration in the patient's condition. During this time I was personally involved in activities including rate control, chest x-ray and urinalysis, cardiac if medications, consulting multiple specialists, and decision making of high complexity to assess, manipulate, and support vital organ system failure (in this case, unexplained pulmonary edema) and/or to prevent further life threatening deterioration of the patient's condition. The failure to initiate these interventions on an urgent basis would likely result in sudden, clinically significant or life threatening deterioration in the patient's condition.
[2017-11-20 15:16] LABS: ABSOLUTE BASOPHIL COUNT 0.1 /CUMM (0.0-0.2); ABSOLUTE EOSINOPHIL COUNT 0 /CUMM (0.0-0.7); ABSOLUTE GRANULOCYTE CT 3.5 /CUMM (1.4-6.5); ABSOLUTE LYMPH COUNT 0.7 /CUMM (1.2-3.4); ABSOLUTE MONOCYTE COUNT 0.5 /CUMM (0.10-0.60); BASOPHIL % 1.8 % (0.0-2.0); EOSINOPHIL % 0.3 % (0-5); GRANULOCYTE % 72.1 % (42.2-75.2); HEMATOCRIT 27.2 % (42-52); MEAN CORPUSCULAR HGB 32.1 PG (27.0-31.0); MEAN CORPUSCULAR HGB CONC 32.9 G/DL (33.0-37.0); MEAN CORPUSCULAR VOLUME 97.6 FL (80.0-94.0); MEAN PLATELET VOLUME 7.7 FL (7.4-10.4); PLATELET COUNT 136 /CUMM (130-400); RBC DISTRIBUTION WIDTH 18.6 % (11.5-14.5); RED BLOOD CELL CT 2.78 /CUMM (4.70-6.10); WHITE BLOOD CELL COUNT 4.8 /CUMM (4.8-10.8)
[2017-11-20 15:33] LABS: PT 12.4 SEC (9.4-12.5); PTT 25 SEC (25-37)
--- NOTE | 2017-11-20 21:29 | RADIOLOGY REPORT ---
EXAMINATION: XR PORTABLE CHEST CLINICAL INFORMATION: Fever. COMPARISON: Chest x-ray 11/10/2017 TECHNIQUE: Portable frontal view of the chest was obtained. 3:07 PM FINDINGS: Lung volume is low. This is similar to prior chest x-ray. There are streaky opacities at the left lung base of subsegmental atelectasis. There is no focal consolidation. No pleural effusion. No significant central pulmonary vascular congestion. The cardiac and mediastinal contours are unchanged. IMPRESSION: Low lung volume. Linear atelectasis left lung base. No acute change of chest.
[2017-11-21] VITALS: BP 100/76
--- NOTE | 2017-11-21 00:14 | History & Physical ---
Any KRISHNAMURTHY,Freddy 11/21/17 0014: General Information and HPI MD Statement: I have seen and personally examined JUAN A DU and documented this H&P. The patient is a 67 year old M who presented with a patient stated chief complaint of [cough]. Source of Information: patient, family, old records Exam Limitations: no limitations History of Present Illness: Patient is a 67-year-old male with past medical history of multiple myeloma currently on chemotherapy (last on November 15) and dexamethasone, end-stage renal disease on peritoneal dialysis, atrial fibrillation not on anticoagulation, hypertension, chronic back pain, osteoporosis, recent hospitalization on November 05 treated for strep pneumonia, sepsis, peritonitis presenting this admission with chief complaint of worsening cough and tachycardia. The patient's was at bedside during interview and gave much of the history. Reports that patient has had a cough since his last admission in October. Reports that on November 09 he was seen again in the ED for the cough at which point he had chest x-ray and CT scans which were negative. Patient states that he has been having a nonproductive cough. States that he tries to limit his coughing due to significant chest pain associated with his multiple myeloma which worsens with coughing. Patient denies any fever or chills, palpitations, nausea/vomiting, abdominal pain, diarrhea/constipation, bilateral lower extremity swelling, orthopnea or PND. Reports loss of appetite over the last few weeks and reports the patient has lost approximately 10-12 pounds over the past few weeks as well. Patient's reports that the patient receives peritoneal dialysis at home every night for approximately 10 hours. States his blood pressure has been within normal range. States however he does get low to the 70s to 80s systolic over 50s to 60s diastolic. Patient reports that he has been feeling weak since his last admission. Patient is currently seeing physical therapy and occupational therapy. Reports patient has had some bleeding from his penis which his doctors are aware of and have been attributed to his renal disease. Patient's musical instrument maker or repairer is Dr. Cosby. Patient's last echo was in October 2017 at which point his left ventricular ejection fraction was 65-70% with hyperdynamic left ventricular systolic function however this was in the setting of sepsis. Patient oncologist is Dr. Perez. Patient is seen by Dr. Corey for dialysis. Patient's PCP is Dr. De La Garza. Patient lives with his , ambulates without assistance. Denies tobacco, alcohol, illicit drug use. Medications: Sevelamer, acyclovir, carvedilol, amtiza, magnesium, vitamin B complex/folic acid/vitamin C/biotin In the ED patient received ceftriaxone and azithromycin. Allergies/Medications Allergies: Coded Allergies: oxycodone (Intermediate, DELERIUM 11/20/17) Home Med list Acyclovir 200 MG CAPSULE 1 CAP PO DAILY SHINGLE PREVENTION (Reported) Levofloxacin (Levaquin) 500 MG TABLET 500 MG PO Q48H Pneumonia . Lubiprostone (Amitiza) 24 MCG CAPSULE 1 CAP PO BID GI (Reported) Magnesium Oxide 400 MG TABLET 1 TAB PO DAILY HYPOMAGNESEMIA Metoprolol Tartrate 25 MG TABLET 12.5 MG PO BID heart .. Midodrine HCl 2.5 MG TABLET 7.5 MG PO 0800,1200,1600 Hypotension .. Oxycodone HCl 10 MG TABLET 1-2 TAB PO Q4-6H PRN PAIN (Reported) Oxycodone HCl (Oxycodone HCl ER) 20 MG TAB.ER.12H 1 TAB PO BID PAIN (Reported ) Prochlorperazine Maleate 10 MG TABLET 1 TAB PO Q6 PRN N/V (Reported) Sevelamer Carbonate (Renvela) 800 MG TABLET 4 TAB PO WM KIDNEYS (Reported) Sevelamer Carbonate (Renvela) 800 MG TABLET 2 TAB PO TID PRN KIDNEYS ( Reported) Vit B Cmplx 3/FA/Vit C/Biotin (Nephro-Nola Rx Tablet) 1 MG-60 MG-300 MCG TABLET 1 TAB PO DAILY SUPPLEMENT (Reported) Past History Travel History Traveled to [place] past 21 day No Medical History Neurological: NONE EENT: NONE Cardiovascular: AFIB, hypertension Respiratory: NONE Renal: END-STAGE RENAL DISEASE ON PERITONEAL Musculoskeletal: chronic back pain, osteoporosis Psychiatric: NONE Endocrine: NONE Blood Disorders: MULTIPLE MYELOMA History of MRSA: No History of VRE: No History of CDIFF: No Isolation History: Standard Surgical History Surgical History: appendectomy Past Family/Social History Family History Relations & Conditions if any Relation not specified for: FH: colon cancer Psychosocial History Services at Home: None ETOH Use: denies use Illicit Drug Use: denies illicit drug use Functional Ability ADLs Independent: dressing, eating, toileting, bathing. Ambulation: independent IADLs Independent: shopping, housework, finances, food prep, telephone, transportation , medication admin. Review of Systems Review of Systems Constitutional: Reports: see HPI, weakness. EENTM: Reports: no symptoms. Cardiovascular: Reports: see HPI. Respiratory: Reports: see HPI. GI: Reports: no symptoms. Genitourinary: Reports: see HPI. Musculoskeletal: Reports: back pain. Skin: Reports: no symptoms. Neurological/Psychological: Reports: no symptoms. Hematologic/Endocrine: Reports: see HPI. Exam & Diagnostic Data Last 24 Hrs of Vital Signs/I&O Vital Signs Date Time Temp Pulse Resp B/P B/P Pulse O2 O2 Flow FiO2 Mean Ox Delivery Rate 11/21 0400 94 Nasal 2.0L Cannula 11/21 0000 98.9 112 33 100/76 93 Nasal 2.0L Cannula 11/21 0000 94 Nasal 2.0L Cannula 11/20 2312 98.9 98 20 85/52 94 Nasal 2.0L Cannula 11/20 2142 99.5 112 18 87/54 95 Nasal Cannula 11/20 2022 99.8 113 16 89/65 92 Room Air 11/20 1514 96 Room Air Room Air 11/20 1432 99.1 122 22 90/60 94 Room Air Room Air Intake & Output 11/21 0800 05 0000 11/20 1600 Intake Total 200 Output Total 200 Balance -200 200 Intake, Oral 200 Output, 200 Dialysate Patient 144 lb Weight Weight Bed scale Measurement Method Physical Exam General Appearance Alert, Oriented X3, Cooperative, No Acute Distress Skin Temp/Moisture Exam: Warm/Dry Sepsis Skin Exam (color): Normal for Ethnicity HEENT Atraumatic, PERRLA, EOMI, Mucous Membr. moist/pink Neck No JVD Lymphatic Cervical nl Cardiovascular Normal S1, Normal S2, tachycardic Lungs upper airway coarse breath sounds Abdomen Normal Bowel Sounds, Soft, No Tenderness, peritoneal dialysis catheter with covering with no erythema or tenderness Neurological Normal Speech, Strength at 5/5 X4 Ext, Normal Tone, Sensation Intact, Cranial Nerves 3-12 NL Extremities No Clubbing, No Cyanosis, No Edema, Normal Pulses, No Tenderness/ Swelling Vascular Normal Pulses, Pulses Symmetrical Last 24 Hrs of Labs/Tyler: Laboratory Tests 11/20/17 2330: Troponin I 0.06 05/07/18 1554: Anion Gap 16, Estimated GFR 5 L, BUN/Creatinine Ratio 5.0 L, Glucose 101 H, Lactic Acid 1.8, Calcium 8.5, Phosphorus 6.8 H, Magnesium 1.5 L, Total Bilirubin 0.9, AST 12 L, ALT 18 L, Alkaline Phosphatase 72, Troponin I 0.07, Bkx-E-Arrpqzioehb Pept 39575 H, Total Protein 7.1, Albumin 3.2 L, Globulin 3.9 , Albumin/Globulin Ratio 0.8 L, Cortisol PM Sample 31.8 H 11/20/17 1510: PT 12.4, INR 1.14, APTT 25, CBC w Diff NO MAN DIFF REQ, RBC 2.78 L, MCV 97.6 H , MCH 32.1 H, MCHC 32.9 L, RDW 18.6 H, MPV 7.7, Gran % 72.1, Lymphocytes % 14.6 L, Monocytes % 11.2 H, Eosinophils % 0.3, Basophils % 1.8, Absolute Granulocytes 3.5, Absolute Lymphocytes 0.7 L, Absolute Monocytes 0.5, Absolute Eosinophils 0, Absolute Basophils 0.1 Microbiology 11/21 0105 NASOPHARYN: Influenza Virus A & B Rapid Smear - COMP 11/21 0010 UPPER RESP: Surveillance Culture - RECD 11/21 9 GI: Surveillance Culture - RECD 11/20 2253 LOWER RESP: Respiratory Culture - ORD 11/20 2253 LOWER RESP: Gram Stain - ORD 11/20 1615 BLOOD: Blood Culture - RECD 11/20 1554 BLOOD: Blood Culture - RECD 11/20 1531 BLOOD: Blood Culture - CAN Cancelled: Cancelled via OE: DUPLICATE ORDER Assessment/Plan Assessment: Patient is a 67-year-old male with past medical history of multiple myeloma currently on chemotherapy (last on November 15) and dexamethasone, end-stage renal disease on peritoneal dialysis, atrial fibrillation not on anticoagulation, hypertension, chronic back pain, osteoporosis, recent hospitalization on November 05 treated for strep pneumonia, sepsis, peritonitis presenting this admission with chief complaint of worsening cough and tachycardia. Patient will be admitted patient will be admitted to ICU for management of followin. Hypotension and tachycardia 2. History of end-stage renal disease, history of multiple myeloma currently on chemotherapy, atrial fibrillation not on anticoagulation Plan: Due to patient's hypotension he will be admitted to the ICU Continues telemetry monitoring Dialysis per nephrology recommendations Vitals q1h IV normal saline 250 mL bolus - fluid challenge Midodrine if bp does not respond to fluids Random cortisol level Blood cultures 2 Ceftaz 1 for Pseudomonas coverage in setting of immunosuppression Sputum cultures TRC/DuoNeb Mucinex Oxygen supplementation as needed ID consult in AM Cardiology consulted (Dr. Cosby) Nephrology consulted (Dr. Brown) Code: FC Diet: Renal dialysis diet DVT PPx: ALPs, (no pharm due to ?history of HIT) As Ranked By This Provider Problem List: 1. Hypotension 2. Tachycardia 3. History of renal failure 4. History of multiple myeloma Core Measures/Misc (04/02) Acute Coronary Syndrome ACS Diagnosis: No Congestive Heart Failure Congestive Heart Failure Diagnosis No Cerebrovascular Accident CVA/TIA Diagnosis: No VTE (View Protocol) VTE Risk Factors Age>40 No Mechanical VTE Prophylaxis d/t N/A MechProphylax Ordered No VTE Pharm Prophylaxis d/t Medical Contraindication Sepsis (View protocol) Sepsis Present: No Adal Lim 11/21/17 0138: Resident Review Statement Resident Statement: examined this patient, discussed with general intern, agreed with general intern, discussed with family, reviewed EMR data (avail), discussed with nursing , discussed with case mgmt, reviewed images, amended to note Other Findings: This is a 67-year-old male with past medical history of multiple myeloma currently on chemotherapy (last on November 15) and dexamethasone, end-stage renal disease on peritoneal dialysis, atrial fibrillation not on anticoagulation, hypertension, chronic back pain, osteoporosis. He presented to the ED with c/o worsening cough and tachycardia. 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 Both the patient and his report that he has had a cough since his last admission in October. Also they both stated that on November 09 he was seen again in the ED for the cough at which point he had chest x-ray and CT scans which were negative. Patient states that he tries to limit his coughing due to significant chest pain associated with his multiple myeloma which worsens with coughing. Reports loss of appetite over the last few weeks and reports the patient has lost approximately 10-12 pounds over the past few weeks as well. The stated that he had his peritoneal dialysis as scheduled daily for 10 hours, she did not note any change in the fluid Humphreys during dialysis and she stated that it's clear and not cloudy. Patient denies any abdominal pain, discomfort, neck pain or rigidity. Patient was taken off his anticoagulation on the previous admission due to persistent thrombocytopenia and the high risk of bleeding. In the ED patient received a dose of IV ceftriaxone and azithromycin. The ED staff contacted the supervisor electronics inspection and he recommended 2.5% D5 with Low calcium 5 exchange per day. We contacted Dr. Alexandre the Photograph Tinter as the patient has underlying tachycardia and on exam it was regular, repeated and the initial EKG showed the patient in sinus tachycardia with PACs, we discussed with Dr. Hair if the patient went atrial fibrillation what will be the choice for rate controlling and he recommended to start amiodarone. Physical examination, lab and imaging as above. Problem list: -Hypotension with most likely reflects tachycardia. -Elevated pro-BNP That is most likely due to his underlying ESRD. Least likely to have underlying CHF. -Pneumonia/bronchitis, questionable. Plan: -Admit patient to the ICU -Vitals every shift, continue his blood pressure monitoring -Start the peritoneal dialysis as recommended by supervisor electronics inspection -If the blood pressure below 80s we will start midodrine by mouth -Obtain TSH, free T4, cortisol level -Obtain blood, sputum cultures, rapid flu -Start IV Fortaz antibiotic -Serial troponin and EKG -Hold off his home medication of carvedilol otherwise continue rest of home medication. -Cardiology consultation -Nephrology consultation -Infectious disease consultation -Pulmonary consultation -Renal dialysis diet -Pain pathway -DVT prophylaxis:ALPS -Full code Prince Monzon 11/21/17 0719: Attending MD Review Statement Attending Statement Attending MD Statement: examined this patient, discuss w/resident/PA/STRAW HAT PRESSER, agreed w/resident/PA/STRAW HAT PRESSER, discussed with family, reviewed images, amended to note Attending Assessment/Plan: CC: Cough, lethargy, weakness PMH: Multiple myeloma on chemotherapy, ESRD on peritoneal dialysis, A. fib currently not on any anticoagulation Patient was brought in by his for approximately 1 week history of weakness, lethargy. Patient was admitted in hospital from October 25 to November 05 for diagnosis of pneumonia, suspected meningitis and peritendinitis secondary to strep pneumo. He completed 10 day course of antibiotic and was discharged. Even after discharge his cough persisted, it is nonproductive, he is unable to cough secondary to chest pain secondary to multiple myeloma. Chronic cough is mainly concerned for patient and his as it's not improving since the discharge. Patient was seen in ER on November 10 for same cough, at that time they were informed that it could be allergic bronchitis. Patient denied any fever, chills at home. Patient's noticed a spot of blood on his penis since yesterday. Patient does not make any urine secondary to ESRD. According to patient's his blood pressure always runs low, he was not discharged on midodrine or hydrocortisone and his previous hospitalization. Vitals: Temperature 99.8, pulse 122, RR 22, blood pressure 90/60, saturating 94% on 2 L nasal cannula On exam: A O 3, cooperative, mild respiratory distress, neck supple, JVD normal , no lymphadenopathy, mucosa dry, no pharyngeal congestion, exudates, I could not appreciate cervical lymphadenopathy, no focal neurological deficit, trace pedal edema, laceration on left great toe, no signs of infection, no obvious skin rashes or inflammation CVS: S1-S2, irregular. RS: Transmitted rhonchorous sounds, no obvious wheezing. Abdomen: Soft, NT, ND, dialysis catheter bowel sounds present. CXR: Low lung volume. Linear atelectasis left lung base. No acute change of chest. Assessment and plan 67-year-old male with past medical history significant for Multiple myeloma on chemotherapy, ESRD on peritoneal dialysis, A. fib currently not on any anticoagulation, presented in ER for main concern of persistent cough since his previous hospitalization for pneumonia. Patient also noticed lethargy and weakness. I was called to admit him with concern of pulmonary edema and volume overload. On my assessment I did not find any pulmonary edema on chest x-ray, patient does not have any JVD, no crackles on auscultation. Patient and his appear very frustrated regarding persistent cough. They were seen in ER on , at that time they were told that the cough is secondary to allergic bronchitis. Today they were told that the cough could be secondary to pulmonary edema. They are very eager to know the cause of this cough and how to treat it. When I offered obtaining a chest CT scan they refused it given that he CT scan and his previous hospitalization. Chest x-ray did not show any obvious infiltrates. I explained about causes of extended cough after pneumonia, concern of bronchitis, concern of not able to clear his secretions secondary to weak cough and weak breathing efforts with underlying pain, possibility of microaspiration or GERD. After extended discussion we came to conclusion that he should be seen by head of ict and musical instrument maker or repairer for further evaluation. Main concern for me was his blood pressure being 87/54. He carries a diagnosis of multiple myeloma, recent chemotherapy was on second november and he was recently treated for septic shock with strep pneumo. There is always a possibility of residual infection or recurrent infection. Peritendinitis could be possibility as well. Even though patient's blood pressure usually runs low, I reviewed all his previous hospitalization blood pressure and his blood pressure was maintained with midodrine and hydrocortisone about 110s systolic. Even after discontinuation of this medications his blood pressure was 105 systolic, even in his recent ER visit 80s systolic is lower than his usual and should be investigated further with pancultures, and reevaluated for restarting midodrine. Patient also patient 's anticoagulation should be restarted for atrial fibrillation, we will consult cardiology. + Persistent cough + Hypotension + Hx Multiple myeloma on chemotherapy, ESRD on peritoneal dialysis, A. fib currently not on any anticoagulation - Admit to ICU - Every hourly vitals - Trend lactate - Serial troponin and ECG - Continue peritoneal dialysis overnight - Try gentle boluses for hypotension - If blood pressure doesn't improve then try midodrine - Nephrology consult, cardiology consult, infectious disease consult - Inform oncology about patient being in hospital - Blood cultures, sputum culture - 1 dose of ceftazidime - Check a random cortisol
[2017-11-21 05:27] LABS: ABSOLUTE BASOPHIL COUNT 0 /CUMM (0.0-0.2); ABSOLUTE EOSINOPHIL COUNT 0 /CUMM (0.0-0.7); ABSOLUTE LYMPH COUNT 0.5 /CUMM (1.2-3.4); ABSOLUTE MONOCYTE COUNT 0.4 /CUMM (0.10-0.60); BASOPHIL % 0.2 % (0.0-2.0); EOSINOPHIL % 0.3 % (0-5); GRANULOCYTE % 74.7 % (42.2-75.2); MEAN CORPUSCULAR HGB 32.1 PG (27.0-31.0); MEAN CORPUSCULAR VOLUME 97.5 FL (80.0-94.0); MEAN PLATELET VOLUME 7.7 FL (7.4-10.4); PLATELET COUNT 124 /CUMM (130-400); RBC DISTRIBUTION WIDTH 18.3 % (11.5-14.5); RED BLOOD CELL CT 2.26 /CUMM (4.70-6.10)
[2017-11-21 06:14] LABS: ABSOLUTE BASOPHIL COUNT 0 /CUMM (0.0-0.2); ABSOLUTE EOSINOPHIL COUNT 0 /CUMM (0.0-0.7); ABSOLUTE GRANULOCYTE CT 2.9 /CUMM (1.4-6.5); ABSOLUTE LYMPH COUNT 0.5 /CUMM (1.2-3.4); ABSOLUTE MONOCYTE COUNT 0.5 /CUMM (0.10-0.60); BASOPHIL % 0.2 % (0.0-2.0); EOSINOPHIL % 0.4 % (0-5); GRANULOCYTE % 73.5 % (42.2-75.2); HEMATOCRIT 21.8 % (42-52); MEAN CORPUSCULAR HGB 32.3 PG (27.0-31.0); MEAN CORPUSCULAR HGB CONC 33.1 G/DL (33.0-37.0); MEAN CORPUSCULAR VOLUME 97.6 FL (80.0-94.0); MEAN PLATELET VOLUME 7.6 FL (7.4-10.4); PLATELET COUNT 125 /CUMM (130-400); RBC DISTRIBUTION WIDTH 18.1 % (11.5-14.5); RED BLOOD CELL CT 2.23 /CUMM (4.70-6.10)
--- NOTE | 2017-11-21 07:13 | Cons- Hematology ---
General Information and HPI Consulting Request Date of Consult: 11/21/17 Requested By: Prince Monzon MD History of Present Illness: 67-year-old gentleman well known to me with multiple myeloma, presenting as end- stage renal disease on peritoneal dialysis now admitted with hypotension. Patient recently had documented streptococcal sepsis of uncertain source. Shouldn't is actively being treated for his multiple myeloma with toxin, Velcade and dexamethasone; last treated last week. Patient currently denies headaches or dizziness. Patient Denies productive cough chest pain or hemoptysis. Patient had a bloody penile discharge of small volume. A shouldn't denies significant bone pain. Allergies/Medications Allergies: Coded Allergies: oxycodone (Intermediate, DELERIUM 11/20/17) Home Med List: Acyclovir 200 MG CAPSULE 1 CAP PO DAILY SHINGLE PREVENTION (Reported) Carvedilol 3.125 MG TABLET 1 TAB PO BID BLOOD PRESSURE Lubiprostone (Amitiza) 24 MCG CAPSULE 1 CAP PO BID GI (Reported) Magnesium Oxide 400 MG TABLET 1 TAB PO DAILY HYPOMAGNESEMIA Oxycodone HCl 10 MG TABLET 1-2 TAB PO Q4-6H PRN PAIN (Reported) Oxycodone HCl (Oxycodone HCl ER) 20 MG TAB.ER.12H 1 TAB PO BID PAIN (Reported ) Prochlorperazine Maleate 10 MG TABLET 1 TAB PO Q6 PRN N/V (Reported) Sevelamer Carbonate (Renvela) 800 MG TABLET 4 TAB PO WM KIDNEYS (Reported) Sevelamer Carbonate (Renvela) 800 MG TABLET 2 TAB PO TID PRN KIDNEYS ( Reported) Vit B Cmplx 3/FA/Vit C/Biotin (Nephro-Nola Rx Tablet) 1 MG-60 MG-300 MCG TABLET 1 TAB PO DAILY SUPPLEMENT (Reported) Current Medications: Current Medications Sig/Christie Start time Last Medication Dose Route Stop Time Status Admin Acetaminophen 650 MG Q6P PRN 11/20 2129 AC PO Acetaminophen 1,000 MG Q6P PRN 11/20 2129 AC IV Acyclovir 200 MG DAILY 11/21 899 AC PO Azithromycin 500 MG DAILY 11/21 899 CAN Sodium Chloride 250 ML IV Azithromycin 500 MG ONCE ONE 11/20 1515 DC 11/20 Sodium Chloride 250 ML IV 11/20 1614 1558 Ceftazidime 1,000 MG DAILY 11/21 899 AC IV Ceftriaxone Sodium 1,000 MG DAILY 11/21 899 CAN IV Ceftriaxone Sodium 0 .STK-MED ONE 11/20 1527 DC .ROUTE Ceftriaxone Sodium 1,000 MG ONCE ONE 11/20 1515 DC 11/20 IV 11/20 1516 1558 Guaifenesin 600 MG Q12 11/20 2309 AC PO Magnesium Oxide 400 MG DAILY 11/21 899 AC PO Midodrine 7.5 MG 0800,1200,1600 11/21 0230 AC 11/21 PO 0236 Oxycodone HCl 10 MG Q6 PRN 11/21 001 AC PO Sevelamer Carbonate 3,200 MG WM 11/22 799 AC PO Sevelamer Carbonate 1,600 MG TID PRN 11/21 001 AC PO Sodium Chloride 250 ML BOLUS ONE 11/20 2315 DC 11/20 IV 11/21 0014 2344 Sodium Chloride 1,980 ML ONCE 11/20 151 DC IV Review of Systems Review of Systems: 12 point review of systems is otherwise noncontributory Past History Travel History Traveled to [place] past 21 day No Medical History Blood Transfusion Hx: Yes Neurological: NONE EENT: NONE Cardiovascular: AFIB, hypertension Respiratory: NONE Gastrointestinal: NONE Hepatic: NONE Renal: END-STAGE RENAL DISEASE ON PERITONEAL Musculoskeletal: chronic back pain, osteoporosis Psychiatric: NONE Endocrine: NONE Blood Disorders: MULTIPLE MYELOMA Cancer(s): multiple myeloma PORTFOLIO ARCHITECT/Reproductive: NONE Surgical History Surgical History: appendectomy Family History Relations & Conditions If Any: Relation not specified for: FH: colon cancer Psychosocial History Where Do You Live? Home Services at Home: Nursing, Occupational Therapy, Physical Therapy Smoking Status: Never Smoked ETOH Use: denies use Illicit Drug Use: denies illicit drug use Functional Ability ADLs Independent: dressing, eating, toileting, bathing. Ambulation: independent IADLs Independent: shopping, housework, finances, food prep, telephone, transportation , medication admin. Exam & Diagnostic Data Vital Signs and I&O Vital Signs Date Time Temp Pulse Resp B/P B/P Pulse O2 O2 Flow FiO2 Mean Ox Delivery Rate 11/21 0400 94 Nasal 2.0L Cannula 11/21 0000 98.9 112 33 100/76 93 Nasal 2.0L Cannula 11/21 0000 94 Nasal 2.0L Cannula 11/202 98.9 98 20 85/52 94 Nasal 2.0L Cannula 11/20 2142 99.5 112 18 87/54 95 Nasal Cannula 11/20 2021 99.8 113 16 89/65 92 Room Air 11/20 1514 96 Room Air Room Air 11/20 1432 99.1 122 22 90/60 94 Room Air Room Air Intake & Output 11/21 0800 11/21 0000 11/20 1600 Intake Total 2610 200 Output Total 2700 Balance -90 200 Intake, 2300 Dialysate Intake, IV 250 Intake, Oral 60 200 Output, 2700 Dialysate Patient 144 lb Weight Weight Bed scale Measurement Method Gen.: in NAD ENT: Sclera anicteric Chest: Normal respiratory effort, coarse rhonchi Cor: RRR, no extra sounds Abdomen: Soft, bowel sounds present, no tenderness, no rebound Extremities: Without clubbing, cyanosis, or asymmetric edema Neurology: Alert and oriented 3, no gross deficit Skin: No rashes Last 48 Hours of Lab Results: Laboratory Tests 11/21 11/21 0600 0555 Chemistry Troponin I Cancelled Hematology CBC w Diff NO MAN DIFF REQ WBC (4.8 - 10.8 /CUMM) 4.0 L RBC (4.70 - 6.10 /CUMM) 2.23 L Hgb (14.0 - 18.0 G/DL) 7.2 *L Hct (42 - 52 %) 21.8 L MCV (80.0 - 94.0 FL) 97.6 H MCH (27.0 - 31.0 PG) 32.3 H MCHC (33.0 - 37.0 G/DL) 33.1 RDW (11.5 - 14.5 %) 18.1 H Plt Count (130 - 400 /CUMM) 125 L MPV (7.4 - 10.4 FL) 7.6 Gran % (42.2 - 75.2 %) 73.5 Lymphocytes % (20.5 - 51.1 %) 12.9 L Monocytes % (1.7 - 9.3 %) 13.0 H Eosinophils % (0 - 5 %) 0.4 Basophils % (0.0 - 2.0 %) 0.2 Absolute Granulocytes (1.4 - 6.5 /CUMM) 2.9 Absolute Lymphocytes (1.2 - 3.4 /CUMM) 0.5 L Absolute Monocytes (0.10 - 0.60 /CUMM) 0.5 Absolute Eosinophils (0.0 - 0.7 /CUMM) 0 Absolute Basophils (0.0 - 0.2 /CUMM) 0 11/21 11/20 11/20 0505 2330 1554 Chemistry Sodium (137 - 145 mmol/L) 137 138 Potassium (3.5 - 5.1 mmol/L) 3.5 4.2 Chloride (98 - 107 mmol/L) 96 L 93 L Carbon Dioxide (22 - 30 mmol/L) 27 29 Anion Gap (5 - 16) 14 16 BUN (9 - 20 mg/dL) 55 H 57 H Creatinine (0.7 - 1.2 mg/dL) 11.7 *H 11.3 *H Estimated GFR (>60 ml/min) 4 L 5 L BUN/Creatinine Ratio (7 - 25 %) 4.7 L 5.0 L Glucose (65 - 99 mg/dL) 101 H Lactic Acid (0.7 - 2.1 mmol/L) 1.8 Calcium (8.4 - 10.2 mg/dL) 8.5 Phosphorus (2.5 - 4.5 mg/dL) 6.8 H Magnesium (1.6 - 2.3 mg/dL) 1.5 L Total Bilirubin (0.2 - 1.3 mg/dL) 0.9 AST (17 - 59 U/L) 12 L ALT (21 - 72 U/L) 18 L Alkaline Phosphatase (< 127 U/L) 72 Troponin I (<0.11 ng/ml) 0.08 0.06 0.07 Ihi-D-Amgqsfgyqbu Pept (<125 pg/mL) 37797 H Total Protein (6.3 - 8.2 g/dL) 7.1 Albumin (3.5 - 5.0 g/dL) 3.2 L Globulin (1.9 - 4.2 gm/dL) 3.9 Albumin/Globulin Ratio (1.1 - 2.2 %) 0.8 L Cortisol PM Sample (1.7 - 14.1) 31.8 H Hematology CBC w Diff NO MAN DIFF REQ WBC (4.8 - 10.8 /CUMM) 4.0 L RBC (4.70 - 6.10 /CUMM) 2.26 L Hgb (14.0 - 18.0 G/DL) 7.3 *L Hct (42 - 52 %) 22.0 L MCV (80.0 - 94.0 FL) 97.5 H MCH (27.0 - 31.0 PG) 32.1 H MCHC (33.0 - 37.0 G/DL) 33.0 RDW (11.5 - 14.5 %) 18.3 H Plt Count (130 - 400 /CUMM) 124 L MPV (7.4 - 10.4 FL) 7.7 Gran % (42.2 - 75.2 %) 74.7 Lymphocytes % (20.5 - 51.1 %) 13.7 L Monocytes % (1.7 - 9.3 %) 11.1 H Eosinophils % (0 - 5 %) 0.3 Basophils % (0.0 - 2.0 %) 0.2 Absolute Granulocytes (1.4 - 6.5 /CUMM) 3.0 Absolute Lymphocytes (1.2 - 3.4 /CUMM) 0.5 L Absolute Monocytes (0.10 - 0.60 /CUMM) 0.4 Absolute Eosinophils (0.0 - 0.7 /CUMM) 0 Absolute Basophils (0.0 - 0.2 /CUMM) 0 05/07 1510 Coagulation PT (9.4 - 12.5 SEC) 12.4 INR (0.90 - 1.17) 1.14 APTT (25 - 37 SEC) 25 Hematology CBC w Diff NO MAN DIFF REQ WBC (4.8 - 10.8 /CUMM) 4.8 RBC (4.70 - 6.10 /CUMM) 2.78 L Hgb (14.0 - 18.0 G/DL) 8.9 L Hct (42 - 52 %) 27.2 L MCV (80.0 - 94.0 FL) 97.6 H MCH (27.0 - 31.0 PG) 32.1 H MCHC (33.0 - 37.0 G/DL) 32.9 L RDW (11.5 - 14.5 %) 18.6 H Plt Count (130 - 400 /CUMM) 136 MPV (7.4 - 10.4 FL) 7.7 Gran % (42.2 - 75.2 %) 72.1 Lymphocytes % (20.5 - 51.1 %) 14.6 L Monocytes % (1.7 - 9.3 %) 11.2 H Eosinophils % (0 - 5 %) 0.3 Basophils % (0.0 - 2.0 %) 1.8 Absolute Granulocytes (1.4 - 6.5 /CUMM) 3.5 Absolute Lymphocytes (1.2 - 3.4 /CUMM) 0.7 L Absolute Monocytes (0.10 - 0.60 /CUMM) 0.5 Absolute Eosinophils (0.0 - 0.7 /CUMM) 0 Absolute Basophils (0.0 - 0.2 /CUMM) 0.1 Imaging/Other Studies: Chest x-ray-no acute processes identified Assessment/Plan Assessment: 1. Hypotension-etiology is not obvious. Patient is actively being treated for sepsis. Multiple specialists are to see the patient-cardiology, pulmonary, ID, nephrology. Apparently, recent echocardiogram revealed preserved ventricular function, not suggestive of amyloidosis Recommend- Await input from other specialists Check cortisol level 2. Multiple myeloma-recent globulin analysis suggested stable disease Recommend- Chemotherapy on hold Keep hematocrit >25% Recommendations: .. Consult Acknowledgment - Thank you for your consult request.
--- NOTE | 2017-11-21 07:21 | Admission Certification ---
Admission Certification Certification Statement - As attending physician, I certify that at the time of - admission, based on clinical presentation, severity of - symptoms, need for further diagnostic testing and - therapeutic interventions, and risk of adverse outcomes - without in-hospital treatment, in my clinical assessment, - this patient requires an acute hospital stay for a minimum - of two nights or longer. I have also considered psychsocial - factors such as support system, advanced age, financial - issues, cognitive issues, and failed out-patient treatments, - past re-admission history, safety of patient, and lack of - compliance as applicable. Specific rationale supporting this admission is: Persistent cough, hypotension
--- NOTE | 2017-11-21 07:35 | Cons- CRCU ---
Ousmane KRISHNAMURTHY,[facility] 11/21/17 0734: General Information and HPI Consulting Request Date of Consult: 11/21/17 Requested By: Per primary team Reason for Consult: Hypotension Eleveated proBNP ESRD Questionable pneumonia/bronchitis History of Present Illness: 67-year-old male with past medical history of multiple myeloma currently on chemotherapy (last on November 15) and dexamethasone, end-stage renal disease on peritoneal dialysis, atrial fibrillation not on anticoagulation, hypertension, chronic back pain, osteoporosis, recent hospitalization on November 05 treated for strep pneumonia, sepsis, peritonitis presenting this admission with chief complaint of worsening cough and tachycardia. The patient's was at bedside during interview and gave much of the history. Reports that patient has had a cough since his last admission in October. Reports that on November 09 he was seen again in the ED for the cough at which point he had chest x-ray and CT scans which were negative. Patient states that he has been having a nonproductive cough. States that he tries to limit his coughing due to significant chest pain associated with his multiple myeloma which worsens with coughing. Patient denies any fever or chills, palpitations, nausea/vomiting, abdominal pain, diarrhea/constipation, bilateral lower extremity swelling, orthopnea or PND. Reports loss of appetite over the last few weeks and reports the patient has lost approximately 10-12 pounds over the past few weeks as well. Patient's reports that the patient receives peritoneal dialysis at home every night for approximately 10 hours. States his blood pressure has been within normal range. States however he does get low to the 70s to 80s systolic over 50s to 60s diastolic. Patient reports that he has been feeling weak since his last admission. Patient is currently seeing physical therapy and occupational therapy. Reports patient has had some bleeding from his penis which his doctors are aware of and have been attributed to his renal disease. Patient's corporate wellness coordinator is Dr. Cosby. Patient's last echo was in October 2017 at which point his left ventricular ejection fraction was 65-70% with hyperdynamic left ventricular systolic function however this was in the setting of sepsis. Patient oncologist is Dr. Perez. Patient is seen by Dr. Corey for dialysis. Patient's PCP is Dr. De La Garza. Patient lives with his , ambulates without assistance. Denies tobacco, alcohol, illicit drug use. Medications: Sevelamer, acyclovir, carvedilol, amtiza, magnesium, vitamin B complex/folic acid/vitamin C/biotin In the ED patient received ceftriaxone and azithromycin. Allergies/Medications Allergies: Coded Allergies: oxycodone (Intermediate, DELERIUM 11/20/17) Home Med List: Acyclovir 200 MG CAPSULE 1 CAP PO DAILY SHINGLE PREVENTION (Reported) Carvedilol 3.125 MG TABLET 1 TAB PO BID BLOOD PRESSURE Lubiprostone (Amitiza) 24 MCG CAPSULE 1 CAP PO BID GI (Reported) Magnesium Oxide 400 MG TABLET 1 TAB PO DAILY HYPOMAGNESEMIA Oxycodone HCl 10 MG TABLET 1-2 TAB PO Q4-6H PRN PAIN (Reported) Oxycodone HCl (Oxycodone HCl ER) 20 MG TAB.ER.12H 1 TAB PO BID PAIN (Reported ) Prochlorperazine Maleate 10 MG TABLET 1 TAB PO Q6 PRN N/V (Reported) Sevelamer Carbonate (Renvela) 800 MG TABLET 4 TAB PO WM KIDNEYS (Reported) Sevelamer Carbonate (Renvela) 800 MG TABLET 2 TAB PO TID PRN KIDNEYS ( Reported) Vit B Cmplx 3/FA/Vit C/Biotin (Nephro-Nola Rx Tablet) 1 MG-60 MG-300 MCG TABLET 1 TAB PO DAILY SUPPLEMENT (Reported) Review of Systems Review of Systems Constitutional: Reports: see HPI. 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 Home Services at Home: Nursing, Occupational Therapy, Physical Therapy Smoking Status: Never Smoked ETOH Use: denies use Illicit Drug Use: denies illicit drug use Functional Ability ADLs Independent: dressing, eating, toileting, bathing. Ambulation: independent IADLs Independent: shopping, housework, finances, food prep, telephone, transportation , medication admin. Exam & Diagnostic Data Last 24 Hrs of Vital Signs/I&O Vital Signs Date Time Temp Pulse Resp B/P B/P Pulse O2 O2 Flow FiO2 Mean Ox Delivery Rate 11/21 0400 94 Nasal 2.0L Cannula 11/21 0000 98.9 112 33 100/76 93 Nasal 2.0L Cannula 11/21 0000 94 Nasal 2.0L Cannula 11/20 2312 98.9 98 20 85/52 94 Nasal 2.0L Cannula 11/20 2142 99.5 112 18 87/54 95 Nasal Cannula 11/20 2021 99.8 113 16 89/65 92 Room Air 11/20 1514 96 Room Air Room Air 11/20 1432 99.1 122 22 90/60 94 Room Air Room Air Intake & Output 11/21 1600 11/21 0800 11/21 0000 Intake Total 2610 200 Output Total 2700 Balance -90 200 Intake, 2300 Dialysate Intake, IV 250 Intake, Oral 60 200 Output, 2700 Dialysate Patient 144 lb Weight Weight Bed scale Measurement Method Physical Exam General Appearance: no apparent distress, alert, awake Head: no neck lympadehnopathy Respiratory: diffuse inspiratory rhonchi and crackles Cardiovascular: tachycardia, no JVD Gastrointestinal: normal bowel sounds, soft, non-tender, suprapubic hernia Extremities: no lower extremity edema Reproductive: mild blood spotting from penis Last 48 Hrs of Labs/Tyler: Laboratory Tests 11/21/17 1216: CBC w Diff Pending, WBC Pending, RBC Pending, Hgb Pending, Hct Pending, MCV Pending, MCH Pending, MCHC Pending, RDW Pending, Plt Count Pending, MPV Pending 11/21/17 0600: Troponin I Cancelled 11/21/17 0555: CBC w Diff NO MAN DIFF REQ, RBC 2.23 L, MCV 97.6 H, MCH 32.3 H, MCHC 33.1, RDW 18.1 H, MPV 7.6, Gran % 73.5, Lymphocytes % 12.9 L, Monocytes % 13.0 H, Eosinophils % 0.4, Basophils % 0.2, Absolute Granulocytes 2.9, Absolute Lymphocytes 0.5 L, Absolute Monocytes 0.5, Absolute Eosinophils 0, Absolute Basophils 0 11/21/17 0505: Anion Gap 14, Estimated GFR 4 L, BUN/Creatinine Ratio 4.7 L, Troponin I 0.08, CBC w Diff NO MAN DIFF REQ, RBC 2.26 L, MCV 97.5 H, MCH 32.1 H, MCHC 33.0, RDW 18.3 H, MPV 7.7, Gran % 74.7, Lymphocytes % 13.7 L, Monocytes % 11.1 H, Eosinophils % 0.3, Basophils % 0.2, Absolute Granulocytes 3.0, Absolute Lymphocytes 0.5 L, Absolute Monocytes 0.4, Absolute Eosinophils 0, Absolute Basophils 0 11/20/17 2330: Troponin I 0.06 11/20/17 1554: Anion Gap 16, Estimated GFR 5 L, BUN/Creatinine Ratio 5.0 L, Glucose 101 H, Lactic Acid 1.8, Calcium 8.5, Phosphorus 6.8 H, Magnesium 1.5 L, Total Bilirubin 0.9, AST 12 L, ALT 18 L, Alkaline Phosphatase 72, Troponin I 0.07, Dwm-[id number]-Ufhdbcegqum Pept 22801 H, Total Protein 7.1, Albumin 3.2 L, Globulin 3.9 , Albumin/Globulin Ratio 0.8 L, Cortisol PM Sample 31.8 H 11/20/17 1510: PT 12.4, INR 1.14, APTT 25, CBC w Diff NO MAN DIFF REQ, RBC 2.78 L, MCV 97.6 H , MCH 32.1 H, MCHC 32.9 L, RDW 18.6 H, MPV 7.7, Gran % 72.1, Lymphocytes % 14.6 L, Monocytes % 11.2 H, Eosinophils % 0.3, Basophils % 1.8, Absolute Granulocytes 3.5, Absolute Lymphocytes 0.7 L, Absolute Monocytes 0.5, Absolute Eosinophils 0, Absolute Basophils 0.1 Microbiology 11/21 0105 NASOPHARYN: Influenza Virus A & B Rapid Smear - COMP Assessment/Plan CRCU Impression/Plan: A: 67-year-old male with past medical history of multiple myeloma currently on chemotherapy (last on November 15) and dexamethasone, end-stage renal disease on peritoneal dialysis, atrial fibrillation not on anticoagulation, hypertension, chronic back pain, osteoporosis and 10 for persistent cough in the setting of due to strep pneumo, hypertension, and elevated proBNP. Problem list: Respiratory #Persistent cough with recent admission for sepsis 2/ to strep pneumo CXR reveals atelectassi -cont ceftaz, restart azithro -f/u CT chest but await sx input for ?ct abd -f/u pancx and cx/cell count of dialysylate fluid -cont trc nebs, pulm toilet -f/u ID recs Infection #Shingles ppx -cont acyclovir Cardiac #Hypotension Possible due to anemia or sepsis Trops and EKG negative for ACS AM cortisol elevated -cont midodrine -f/u repeat am cortisol, plasma renin and aldoslterone -f/u endo recs #[place] in the setting of hx of A. fib currently not on any anticoagulation Possibly 2/2 to anemia -If patient develops prolonged episodes of atrial fibrillation would consider administering 1 dose low-dose digoxin due to his renal failure per cardiology. #Elevated proBNP with no signs of chf/fluid overload ProBNP 23498 Last echo October lvef 65-70% -unclear cause. possible due to fluids received Heme onc #Anemia Transfused 1 unit Posttransfusion H/H 7.9/23.2 -Spoke with Dr. Graham who did not want to transfuse at the moment. Repeat cbc @ 6pm. -stool guaiac prn -maintain hct >25% #hx of Multiple myeloma on chemo and dexamethason [id number] -cont heme onc recs Metabolic #ESRD -cont peritoneal dialysis per nephro -cont sevelamer #electrolyte abnormallities Na 3.5 Mg 1.5 -replenish per nephrology -regular diet to maintain K+ Alimentary #abd hernia -await sx consult #Penile bloody spotting -consider urology consult -cont to monitor Neuro House keepting -FULL CODE -regular diet -DVT ppx - ALPS Problem List: 1. Hernia 2. Anemia 3. Tachycardia 4. Hypotension Consult Acknowledgment - Thank you for your consult request. Nicanor Graham MD 11/21/17 1342: Assessment/Plan CRCU Other Findings/Comments: Nicanor Sarmiento M.D. have examined this patient, reviewed available EMR data, personally reviewed images, discussed with resident/PA/BEAD FORMING MACHINE SET UP OPERATOR, discussed management plan with housestaff and nursing staff, discussed managment plan all of healthcare providers, discussed management plan with patient and/or family, agreed with resident/PA/BEAD FORMING MACHINE SET UP OPERATOR. The past history and parts of the chart have been autopopulated. Impression 67 year old man * hypotension - unclear etiology, can be sepsis secondary to respiratory etiology, adrenal insufficiency * acute respiratory failure requiring 4LNC - can be pneumonia or fluid/ congestion * anemia - acute * new right inguinal hernia Plan -ID, surgery, cardiology, endocrinology consultations -will consider stress dose steroids if endocrine agrees -blood transfusion -chest ct - if other imaging is necessary from consultants will add as well -currently on ceftaz, would add zithromax for atypical coverage, if mrsa screen is negative, would avoid vancomycin DVT prophylaxis at all times TTS 40 min Consult Acknowledgment - Thank you for your consult request.
[2017-11-21 08:00] VITALS: BP 84/50
--- NOTE | 2017-11-21 09:59 | Cons- Cardiology ---
General Information and HPI Consulting Request Date of Consult: 11/21/17 Requested By: Prince Monzon MD Reason for Consult: Cough Source of Information: patient, family Exam Limitations: no limitations History of Present Illness: The patient is a 67-year-old male known to us with a history of multiple myeloma on chemotherapy, end-stage renal disease on peritoneal dialysis, paroxysmal atrial fibrillation not on anticoagulation secondary to anemia, hypertension, chronic back pain, who now presents with cough. The patient's is at the bedside and assists in providing history. The patient was recently hospitalized November 05 for cough secondary to strep pneumonia with sepsis. The patient is now noted a cough that is nonproductive. He denies fever, chills , or shortness of breath. He has noted chest discomfort with coughing. He denies edema, PND, or orthopnea. His states that he normally is hypotensive at home running a blood pressure of 90 systolic but intermittently down to the 80s. His last echocardiogram was performed October 2017 demonstrating ejection fraction of 65-70% but this was performed while he was septic. The patient currently still complains of nonproductive cough along with weakness and fatigue. Allergies/Medications Allergies: Coded Allergies: oxycodone (Intermediate, DELERIUM 11/20/17) Home Med List: Acyclovir 200 MG CAPSULE 1 CAP PO DAILY SHINGLE PREVENTION (Reported) Carvedilol 3.125 MG TABLET 1 TAB PO BID BLOOD PRESSURE Lubiprostone (Amitiza) 24 MCG CAPSULE 1 CAP PO BID GI (Reported) Magnesium Oxide 400 MG TABLET 1 TAB PO DAILY HYPOMAGNESEMIA Oxycodone HCl 10 MG TABLET 1-2 TAB PO Q4-6H PRN PAIN (Reported) Oxycodone HCl (Oxycodone HCl ER) 20 MG TAB.ER.12H 1 TAB PO BID PAIN (Reported ) Prochlorperazine Maleate 10 MG TABLET 1 TAB PO Q6 PRN N/V (Reported) Sevelamer Carbonate (Renvela) 800 MG TABLET 4 TAB PO WM KIDNEYS (Reported) Sevelamer Carbonate (Renvela) 800 MG TABLET 2 TAB PO TID PRN KIDNEYS ( Reported) Vit B Cmplx 3/FA/Vit C/Biotin (Nephro-Nola Rx Tablet) 1 MG-60 MG-300 MCG TABLET 1 TAB PO DAILY SUPPLEMENT (Reported) Current Medications: Current Medications Sig/Christie Start time Last Medication Dose Route Stop Time Status Admin Acetaminophen 650 MG Q6P PRN 11/20 2129 AC PO Acetaminophen 1,000 MG Q6P PRN 11/20 213 AC IV Acyclovir 200 MG DAILY 11/21 899 AC 11/21 PO 0934 Azithromycin 500 MG DAILY 11/21 899 CAN Sodium Chloride 250 ML IV Azithromycin 500 MG ONCE ONE 11/20 1515 DC 11/20 Sodium Chloride 250 ML IV 11/20 1614 1558 Ceftazidime 1,000 MG DAILY 11/21 899 AC 11/21 IV 0934 Ceftriaxone Sodium 1,000 MG DAILY 11/21 899 CAN IV Ceftriaxone Sodium 0 .STK-MED ONE 11/20 1527 DC .ROUTE Ceftriaxone Sodium 1,000 MG ONCE ONE 11/20 1515 DC 11/20 IV 11/20 1516 1558 Guaifenesin 600 MG Q12 11/20 2309 AC 11/21 PO 0934 Magnesium Oxide 400 MG DAILY 11/21 899 AC 11/21 PO 0934 Magnesium Oxide 400 MG ONE ONE 11/21 0830 CAN PO 11/21 0831 Midodrine 7.5 MG 0800,1200,1600 11/21 0230 AC 11/21 PO 0236 Oxycodone HCl 10 MG Q6 PRN 11/21 0015 AC PO Potassium Chloride 40 MEQ ONCE ONE 11/21 899 DC PO 11/21 0901 Sevelamer Carbonate 3,200 MG WM 11/22 799 AC 11/21 PO 0754 Sevelamer Carbonate 1,600 MG TID PRN 11/21 0015 AC PO Sodium Chloride 250 ML BOLUS ONE 11/20 2315 DC 11/20 IV 11/21 0014 2344 Sodium Chloride 1,980 ML ONCE 11/20 151 DC IV Review of Systems Review of Systems: Eyes no blurred or double vision Ears no deafness or ringing Nose and throat no recurrent sinusitis Lungs per history of present illness Heart per history of present illness Abdomen no nausea vomiting Musculoskeletal occasional muscle and joint pains Psych no anxiety or depression Neuro without recurrent headache or seizures Endocrine no heat or cold intolerance Past History Travel History Traveled to [place] past 21 day No Medical History Blood Transfusion Hx: Yes Neurological: NONE EENT: NONE Cardiovascular: AFIB, hypertension Respiratory: NONE Gastrointestinal: NONE Hepatic: NONE Renal: END-STAGE RENAL DISEASE ON PERITONEAL Musculoskeletal: chronic back pain, osteoporosis Psychiatric: NONE Endocrine: NONE Blood Disorders: MULTIPLE MYELOMA Cancer(s): multiple 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 Home Services at Home: Nursing, Occupational Therapy, Physical Therapy Smoking Status: Never Smoked ETOH Use: denies use Illicit Drug Use: denies illicit drug use Functional Ability ADLs Independent: dressing, eating, toileting, bathing. Ambulation: independent IADLs Independent: shopping, housework, finances, food prep, telephone, transportation , medication admin. Exam & Diagnostic Data Vital Signs and I&O Vital Signs Date Time Temp Pulse Resp B/P B/P Pulse O2 O2 Flow FiO2 Mean Ox Delivery Rate 11/21 0400 94 Nasal 2.0L Cannula 11/21 0000 98.9 112 33 100/76 93 Nasal 2.0L Cannula 11/21 0000 94 Nasal 2.0L Cannula 11/20 2312 98.9 98 20 85/52 94 Nasal 2.0L Cannula 11/20 2142 99.5 112 18 87/54 95 Nasal Cannula 11/20 2022 99.8 113 16 89/65 92 Room Air 11/20 1514 96 Room Air Room Air 11/20 1432 99.1 122 22 90/60 94 Room Air Room Air Intake & Output 11/21 1600 11/21 0800 11/21 0000 11/20 1600 11/20 0800 11/20 0000 Intake Total 2610 200 Output Total 2700 Balance -90 200 Intake, 2300 Dialysate Intake, IV 250 Intake, Oral 60 200 Output, 2700 Dialysate Patient 144 lb Weight Weight Bed scale Measurement Method Physical Exam: Patient is a well-developed well-nourished male appearing in no acute distress HEENT is unremarkable Neck is supple there is no JVD Lungs diffuse scattered rhonchi bilaterally Heart regular rhythm S1 and S2 are normal no murmurs gallops or rubs Abdomen bowel sounds positive Extremities without edema Labs/Tyler Results: Laboratory Tests 11/21 11/21 0600 0555 Chemistry Troponin I Cancelled Hematology CBC w Diff NO MAN DIFF REQ WBC (4.8 - 10.8 /CUMM) 4.0 L RBC (4.70 - 6.10 /CUMM) 2.23 L Hgb (14.0 - 18.0 G/DL) 7.2 *L Hct (42 - 52 %) 21.8 L MCV (80.0 - 94.0 FL) 97.6 H MCH (27.0 - 31.0 PG) 32.3 H MCHC (33.0 - 37.0 G/DL) 33.1 RDW (11.5 - 14.5 %) 18.1 H Plt Count (130 - 400 /CUMM) 125 L MPV (7.4 - 10.4 FL) 7.6 Gran % (42.2 - 75.2 %) 73.5 Lymphocytes % (20.5 - 51.1 %) 12.9 L Monocytes % (1.7 - 9.3 %) 13.0 H Eosinophils % (0 - 5 %) 0.4 Basophils % (0.0 - 2.0 %) 0.2 Absolute Granulocytes (1.4 - 6.5 /CUMM) 2.9 Absolute Lymphocytes (1.2 - 3.4 /CUMM) 0.5 L Absolute Monocytes (0.10 - 0.60 /CUMM) 0.5 Absolute Eosinophils (0.0 - 0.7 /CUMM) 0 Absolute Basophils (0.0 - 0.2 /CUMM) 0 11/21 0507 05/07 0505 2330 1554 Chemistry Sodium (137 - 145 mmol/L) 137 138 Potassium (3.5 - 5.1 mmol/L) 3.5 4.2 Chloride (98 - 107 mmol/L) 96 L 93 L Carbon Dioxide (22 - 30 mmol/L) 27 29 Anion Gap (5 - 16) 14 16 BUN (9 - 20 mg/dL) 55 H 57 H Creatinine (0.7 - 1.2 mg/dL) 11.7 *H 11.3 *H Estimated GFR (>60 ml/min) 4 L 5 L BUN/Creatinine Ratio (7 - 25 %) 4.7 L 5.0 L Glucose (65 - 99 mg/dL) 101 H Lactic Acid (0.7 - 2.1 mmol/L) 1.8 Calcium (8.4 - 10.2 mg/dL) 8.5 Phosphorus (2.5 - 4.5 mg/dL) 6.8 H Magnesium (1.6 - 2.3 mg/dL) 1.5 L Total Bilirubin (0.2 - 1.3 mg/dL) 0.9 AST (17 - 59 U/L) 12 L ALT (21 - 72 U/L) 18 L Alkaline Phosphatase (< 127 U/L) 72 Troponin I (<0.11 ng/ml) 0.08 0.06 0.07 [id number] Pept (<125 pg/mL) 37253 H Total Protein (6.3 - 8.2 g/dL) 7.1 Albumin (3.5 - 5.0 g/dL) 3.2 L Globulin (1.9 - 4.2 gm/dL) 3.9 Albumin/Globulin Ratio (1.1 - 2.2 %) 0.8 L Cortisol PM Sample (1.7 - 14.1) 31.8 H Hematology CBC w Diff NO MAN DIFF REQ WBC (4.8 - 10.8 /CUMM) 4.0 L RBC (4.70 - 6.10 /CUMM) 2.26 L Hgb (14.0 - 18.0 G/DL) 7.3 *L Hct (42 - 52 %) 22.0 L MCV (80.0 - 94.0 FL) 97.5 H MCH (27.0 - 31.0 PG) 32.1 H MCHC (33.0 - 37.0 G/DL) 33.0 RDW (11.5 - 14.5 %) 18.3 H Plt Count (130 - 400 /CUMM) 124 L MPV (7.4 - 10.4 FL) 7.7 Gran % (42.2 - 75.2 %) 74.7 Lymphocytes % (20.5 - 51.1 %) 13.7 L Monocytes % (1.7 - 9.3 %) 11.1 H Eosinophils % (0 - 5 %) 0.3 Basophils % (0.0 - 2.0 %) 0.2 Absolute Granulocytes (1.4 - 6.5 /CUMM) 3.0 Absolute Lymphocytes (1.2 - 3.4 /CUMM) 0.5 L Absolute Monocytes (0.10 - 0.60 /CUMM) 0.4 Absolute Eosinophils (0.0 - 0.7 /CUMM) 0 Absolute Basophils (0.0 - 0.2 /CUMM) 0 05/07 1510 Coagulation PT (9.4 - 12.5 SEC) 12.4 INR (0.90 - 1.17) 1.14 APTT (25 - 37 SEC) 25 Hematology CBC w Diff NO MAN DIFF REQ WBC (4.8 - 10.8 /CUMM) 4.8 RBC (4.70 - 6.10 /CUMM) 2.78 L Hgb (14.0 - 18.0 G/DL) 8.9 L Hct (42 - 52 %) 27.2 L MCV (80.0 - 94.0 FL) 97.6 H MCH (27.0 - 31.0 PG) 32.1 H MCHC (33.0 - 37.0 G/DL) 32.9 L RDW (11.5 - 14.5 %) 18.6 H Plt Count (130 - 400 /CUMM) 136 MPV (7.4 - 10.4 FL) 7.7 Gran % (42.2 - 75.2 %) 72.1 Lymphocytes % (20.5 - 51.1 %) 14.6 L Monocytes % (1.7 - 9.3 %) 11.2 H Eosinophils % (0 - 5 %) 0.3 Basophils % (0.0 - 2.0 %) 1.8 Absolute Granulocytes (1.4 - 6.5 /CUMM) 3.5 Absolute Lymphocytes (1.2 - 3.4 /CUMM) 0.7 L Absolute Monocytes (0.10 - 0.60 /CUMM) 0.5 Absolute Eosinophils (0.0 - 0.7 /CUMM) 0 Absolute Basophils (0.0 - 0.2 /CUMM) 0.1 Diagnostic Data EKG Results Sinus tachycardia premature atrial contractions low voltage CXR Results IMPRESSION: Low lung volume. Linear atelectasis left lung base. No acute change of chest. Other Results Telemetry personally reviewed sinus tachycardia with brief runs of atrial fibrillation Assessment/Plan Assessment/Plan #1. Paroxysmal atrial fibrillation not on anticoagulation secondary to anemia #2. Cough most likely secondary to bronchitis versus pneumonia. #3. Elevated BNP secondary to end-stage renal disease. There is no evidence of congestive heart failure #4. Hypotension. Patient has a long history of running low blood pressures at home. This may be exacerbated by possible infection #5. Multiple myeloma with chronic anemia #6. Chronic back pain Recommendations #1. Continue to monitor on telemetry #2. If patient develops prolonged episodes of atrial fibrillation would consider administering 1 dose low-dose digoxin due to his renal failure. He is persistently hypotensive and therefore would not tolerate beta blockers or calcium channel blockers. #3. Continue antibiotics #4. Continue peritoneal dialysis #5. Would continue midodrine to hopefully increase his blood pressure Thank you for allowing [facility] to participate in the care of your patient. Consult Acknowledgment - Thank you for your consult request.
--- NOTE | 2017-11-21 11:12 | RADIOLOGY REPORT ---
EXAMINATION: XR PORTABLE CHEST CLINICAL INFORMATION: Cough and shortness of breath. COMPARISON: Prior chest radiographs, most recently 11/20/2017. TECHNIQUE: Portable frontal view of the chest was obtained. FINDINGS: The heart, great vessels, pulmonary vasculature and mediastinum are stable. There is a suboptimal inspiratory depth. Again, there is elevation of the left hemidiaphragm, with gaseous distention of the splenic flexure. There is increased left base atelectasis versus infiltrate. The right lung field appears relatively clear. No pleural effusion or pneumothorax is seen. There is no acute osseous abnormality. IMPRESSION: 1. There is persistent elevation of the left hemidiaphragm. There is increased atelectasis versus infiltrate at the left base. Recommend radiographic follow-up to clearance. 2. There are low lung volumes. 3. No congestive heart failure is seen.
[2017-11-21 13:02] LABS: ABSOLUTE BASOPHIL COUNT 0 /CUMM (0.0-0.2); ABSOLUTE EOSINOPHIL COUNT 0 /CUMM (0.0-0.7); ABSOLUTE GRANULOCYTE CT 3.1 /CUMM (1.4-6.5); ABSOLUTE LYMPH COUNT 0.6 /CUMM (1.2-3.4); ABSOLUTE MONOCYTE COUNT 0.4 /CUMM (0.10-0.60); BASOPHIL % 0.4 % (0.0-2.0); EOSINOPHIL % 0.3 % (0-5); GRANULOCYTE % 75.5 % (42.2-75.2); HEMATOCRIT 23.2 % (42-52); MEAN CORPUSCULAR HGB 32.5 PG (27.0-31.0); MEAN CORPUSCULAR HGB CONC 34.2 G/DL (33.0-37.0); MEAN CORPUSCULAR VOLUME 95.1 FL (80.0-94.0); MEAN PLATELET VOLUME 8.2 FL (7.4-10.4); PLATELET COUNT 133 /CUMM (130-400); RBC DISTRIBUTION WIDTH 18.9 % (11.5-14.5); RED BLOOD CELL CT 2.44 /CUMM (4.70-6.10); WHITE BLOOD CELL COUNT 4.2 /CUMM (4.8-10.8)
--- NOTE | 2017-11-21 13:35 | Cons- Infect Disease ---
General Information and HPI Consulting Request Date of Consult: 11/21/17 Requested By: Prince Monzon MD Reason for Consult: Rule out pneumonia Source of Information: patient, old records Exam Limitations: confusion History of Present Illness: This is a 67-year-old man with a history of multiple myeloma, diagnosed 3 years prior to admission, treated with chemotherapy, including Decadron, every other week, most recently 5 days prior to admission, with stable globulins and MRIs, hypertension, with borderline hypotension over the last several weeks, treated in the past with Midodrine, osteoporosis, chronic low back pain, requiring chronic pain medication, end-stage renal disease, maintained on CCPD, paroxysmal atrial fibrillation, treated with Eliquis, discontinued on his recent hospitalization because of thrombocytopenia, status post an implantable loop recorder in his left upper chest one year prior to admission, hospitalized 1 month prior to admission with pneumococcal sepsis, possibly secondary to meningitis (with no LP performed) or pneumonia, with a chronic cough throughout his hospitalization, treated with a 10 day course of Ceftriaxone and discharged home, seen in the emergency room 5 days after discharge for confusion and a reported temperature to 100.1, found to be afebrile with a negative chest x-ray and negative CT of the head, admitted on November 20 after presenting to the emergency room with a persistent cough, increasing weakness and lethargy with poor p.o. intake and a 10 pound weight loss. On admission he was afebrile, with blood pressure 90/60. Laboratory data revealed a white blood cell count of 5000, H&H 9 and 27, platelets 136,000, BUN/creatinine 57 and 11.3, with normal liver enzymes, proBNP 22,600, coags normal. Chest x-ray revealed linear atelectasis at the left lung base. He was given Ceftriaxone and Azithromycin in the emergency room and admitted to the ICU, where he was changed to Ceftazidime. He has remained afebrile overnight. His blood pressure has remained low, most recently 84/50, and his oxygen requirements have increased to 4 L/min. He was noted to have bleeding from the urethral meatus. At present he notes a cough but denies any chest pain or shortness of breath. He reports no back pain and has no GI symptoms. Allergies/Medications Allergies: Coded Allergies: oxycodone (Intermediate, DELERIUM 11/20/17) Home Med List: Acyclovir 200 MG CAPSULE 1 CAP PO DAILY SHINGLE PREVENTION (Reported) Carvedilol 3.125 MG TABLET 1 TAB PO BID BLOOD PRESSURE Lubiprostone (Amitiza) 24 MCG CAPSULE 1 CAP PO BID GI (Reported) Magnesium Oxide 400 MG TABLET 1 TAB PO DAILY HYPOMAGNESEMIA Oxycodone HCl 10 MG TABLET 1-2 TAB PO Q4-6H PRN PAIN (Reported) Oxycodone HCl (Oxycodone HCl ER) 20 MG TAB.ER.12H 1 TAB PO BID PAIN (Reported ) Prochlorperazine Maleate 10 MG TABLET 1 TAB PO Q6 PRN N/V (Reported) Sevelamer Carbonate (Renvela) 800 MG TABLET 4 TAB PO WM KIDNEYS (Reported) Sevelamer Carbonate (Renvela) 800 MG TABLET 2 TAB PO TID PRN KIDNEYS ( Reported) Vit B Cmplx 3/FA/Vit C/Biotin (Nephro-Nola Rx Tablet) 1 MG-60 MG-300 MCG TABLET 1 TAB PO DAILY SUPPLEMENT (Reported) Past History Travel History Traveled to [place] past 21 day No Medical History Blood Transfusion Hx: Yes Neurological: NONE EENT: NONE Cardiovascular: AFIB, hypertension Respiratory: NONE Gastrointestinal: NONE Hepatic: NONE Renal: END-STAGE RENAL DISEASE ON PERITONEAL Musculoskeletal: chronic back pain, osteoporosis Psychiatric: NONE Endocrine: NONE Cancer(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 Home Services at Home: Nursing, Occupational Therapy, Physical Therapy Smoking Status: Never Smoked ETOH Use: denies use Illicit Drug Use: denies illicit drug use Functional Ability ADLs Independent: dressing, eating, toileting, bathing. Ambulation: independent IADLs Independent: shopping, housework, finances, food prep, telephone, transportation , medication admin. Review of Systems Review of Systems Constitutional: Denies: chills, fever. Cardiovascular: Denies: chest pain. Respiratory: Reports: cough. Denies: hemoptysis, short of breath, sputum production. GI: Denies: abdominal pain, diarrhea, nausea, vomiting. All Other Systems: Reviewed and Negative Exam & Diagnostic Data Last 24 Hrs of Vital Signs/I&O Vital Signs Date Time Temp Pulse Resp B/P B/P Pulse O2 O2 Flow FiO2 Mean Ox Delivery Rate 11/21 1200 92 Nasal 4.0L Cannula 11/21 08 99.2 103 22 84/50 94 Nasal Cannula 11/21 0800 93 Nasal 4.0L Cannula 11/21 0400 94 Nasal 2.0L Cannula 11/21 0000 98.9 112 33 100/76 93 Nasal 2.0L Cannula 11/21 0000 94 Nasal 2.0L Cannula 11/20 2312 98.9 98 20 85/52 94 Nasal 2.0L Cannula 11/20 2142 99.5 112 18 87/54 95 Nasal Cannula 11/20 2022 99.8 113 16 89/65 92 Room Air 11/20 1514 96 Room Air Room Air 11/20 1432 99.1 122 22 90/60 94 Room Air Room Air Intake & Output 11/21 1600 11/21 0800 05 0000 Intake Total 2610 200 Output Total 3200 Balance -590 200 Intake, 2300 Dialysate Intake, IV 250 Intake, Oral 60 200 Output, 3200 Dialysate Patient 144 lb 146 lb 144 lb Weight Weight Bed scale Bed scale Measurement Method Physical Exam Other Physical Findings: He is awake and alert in no acute distress. He is afebrile. Skin reveals no rash. HEENT exam is negative. Neck is supple with no adenopathy. Lungs diffuse bilateral rhonchi. Heart regular rhythm with a 2/6 systolic ejection murmur. Abdomen is soft, nontender with positive bowel sounds; Tenckhoff catheter in place with no inflammation at the site. Back no CVA tenderness. Extremities no cyanosis, clubbing or edema; reducible right femoral hernia, with no tenderness on palpation. Neuro is without focality. dried blood at the urethral meatus. Last 24 Hours of Lab Results: Laboratory Tests 11/21 11/21 1216 0600 Chemistry Troponin I Cancelled Hematology CBC w Diff NO MAN DIFF REQ WBC (4.8 - 10.8 /CUMM) 4.2 L RBC (4.70 - 6.10 /CUMM) 2.44 L Hgb (14.0 - 18.0 G/DL) 7.9 L Hct (42 - 52 %) 23.2 L MCV (80.0 - 94.0 FL) 95.1 H MCH (27.0 - 31.0 PG) 32.5 H MCHC (33.0 - 37.0 G/DL) 34.2 RDW (11.5 - 14.5 %) 18.9 H Plt Count (130 - 400 /CUMM) 133 MPV (7.4 - 10.4 FL) 8.2 Gran % (42.2 - 75.2 %) 75.5 H Lymphocytes % (20.5 - 51.1 %) 14.0 L Monocytes % (1.7 - 9.3 %) 9.8 H Eosinophils % (0 - 5 %) 0.3 Basophils % (0.0 - 2.0 %) 0.4 Absolute Granulocytes (1.4 - 6.5 /CUMM) 3.1 Absolute Lymphocytes (1.2 - 3.4 /CUMM) 0.6 L Absolute Monocytes (0.10 - 0.60 /CUMM) 0.4 Absolute Eosinophils (0.0 - 0.7 /CUMM) 0 Absolute Basophils (0.0 - 0.2 /CUMM) 0 /08 08 0555 0505 Chemistry Sodium (137 - 145 mmol/L) 137 Potassium (3.5 - 5.1 mmol/L) 3.5 Chloride (98 - 107 mmol/L) 96 L Carbon Dioxide (22 - 30 mmol/L) 27 Anion Gap (5 - 16) 14 BUN (9 - 20 mg/dL) 55 H Creatinine (0.7 - 1.2 mg/dL) 11.7 *H Estimated GFR (>60 ml/min) 4 L BUN/Creatinine Ratio (7 - 25 %) 4.7 L Troponin I (<0.11 ng/ml) 0.08 Hematology CBC w Diff NO MAN DIFF REQ NO MAN DIFF REQ WBC (4.8 - 10.8 /CUMM) 4.0 L 4.0 L RBC (4.70 - 6.10 /CUMM) 2.23 L 2.26 L Hgb (14.0 - 18.0 G/DL) 7.2 *L 7.3 *L Hct (42 - 52 %) 21.8 L 22.0 L MCV (80.0 - 94.0 FL) 97.6 H 97.5 H MCH (27.0 - 31.0 PG) 32.3 H 32.1 H MCHC (33.0 - 37.0 G/DL) 33.1 33.0 RDW (11.5 - 14.5 %) 18.1 H 18.3 H Plt Count (130 - 400 /CUMM) 125 L 124 L MPV (7.4 - 10.4 FL) 7.6 7.7 Gran % (42.2 - 75.2 %) 73.5 74.7 Lymphocytes % (20.5 - 51.1 %) 12.9 L 13.7 L Monocytes % (1.7 - 9.3 %) 13.0 H 11.1 H Eosinophils % (0 - 5 %) 0.4 0.3 Basophils % (0.0 - 2.0 %) 0.2 0.2 Absolute Granulocytes (1.4 - 6.5 /CUMM) 2.9 3.0 Absolute Lymphocytes (1.2 - 3.4 /CUMM) 0.5 L 0.5 L Absolute Monocytes (0.10 - 0.60 /CUMM) 0.5 0.4 Absolute Eosinophils (0.0 - 0.7 /CUMM) 0 0 Absolute Basophils (0.0 - 0.2 /CUMM) 0 0 05/07 05/07 05/07 2330 1554 1510 Chemistry Sodium (137 - 145 mmol/L) 138 Potassium (3.5 - 5.1 mmol/L) 4.2 Chloride (98 - 107 mmol/L) 93 L Carbon Dioxide (22 - 30 mmol/L) 29 Anion Gap (5 - 16) 16 BUN (9 - 20 mg/dL) 57 H Creatinine (0.7 - 1.2 mg/dL) 11.3 *H Estimated GFR (>60 ml/min) 5 L BUN/Creatinine Ratio (7 - 25 %) 5.0 L Glucose (65 - 99 mg/dL) 101 H Lactic Acid (0.7 - 2.1 mmol/L) 1.8 Calcium (8.4 - 10.2 mg/dL) 8.5 Phosphorus (2.5 - 4.5 mg/dL) 6.8 H Magnesium (1.6 - 2.3 mg/dL) 1.5 L Total Bilirubin (0.2 - 1.3 mg/dL) 0.9 AST (17 - 59 U/L) 12 L ALT (21 - 72 U/L) 18 L Alkaline Phosphatase (< 127 U/L) 72 Troponin I (<0.11 ng/ml) 0.06 0.07 [id number] Pept (<125 pg/mL) 83885 H Total Protein (6.3 - 8.2 g/dL) 7.1 Albumin (3.5 - 5.0 g/dL) 3.2 L Globulin (1.9 - 4.2 gm/dL) 3.9 Albumin/Globulin Ratio (1.1 - 2.2 %) 0.8 L Cortisol PM Sample (1.7 - 14.1) 31.8 H Coagulation PT (9.4 - 12.5 SEC) 12.4 INR (0.90 - 1.17) 1.14 APTT (25 - 37 SEC) 25 Hematology CBC w Diff NO MAN DIFF REQ WBC (4.8 - 10.8 /CUMM) 4.8 RBC (4.70 - 6.10 /CUMM) 2.78 L Hgb (14.0 - 18.0 G/DL) 8.9 L Hct (42 - 52 %) 27.2 L MCV (80.0 - 94.0 FL) 97.6 H MCH (27.0 - 31.0 PG) 32.1 H MCHC (33.0 - 37.0 G/DL) 32.9 L RDW (11.5 - 14.5 %) 18.6 H Plt Count (130 - 400 /CUMM) 136 MPV (7.4 - 10.4 FL) 7.7 Gran % (42.2 - 75.2 %) 72.1 Lymphocytes % (20.5 - 51.1 %) 14.6 L Monocytes % (1.7 - 9.3 %) 11.2 H Eosinophils % (0 - 5 %) 0.3 Basophils % (0.0 - 2.0 %) 1.8 Absolute Granulocytes (1.4 - 6.5 /CUMM) 3.5 Absolute Lymphocytes (1.2 - 3.4 /CUMM) 0.7 L Absolute Monocytes (0.10 - 0.60 /CUMM) 0.5 Absolute Eosinophils (0.0 - 0.7 /CUMM) 0 Absolute Basophils (0.0 - 0.2 /CUMM) 0.1 Last 24 Hours of [place] Results: Blood cultures November 20 negative Rapid flu swab November 21 negative Diagnostic Data Recent Imaging Findings: Chest x-ray November 21 reveals an increasing density at the left base, with a probable pleural effusion Assessment/Plan Assessment/Plan Impression: This is a 67-year-old man with a history of multiple myeloma, treated with chemotherapy, including Decadron, every other week, most recently 5 days prior to admission, with stable globulins and MRIs, end-stage renal disease, maintained on CCPD, hospitalized 1 month prior to admission with pneumococcal sepsis, felt to be secondary to meningitis or pneumonia, admitted on November with a persistent cough, increasing weakness and lethargy with poor p.o. intake and a 10 pound weight loss, found to be afebrile with hypotension, a normal white blood cell count and a left lower lobe density on chest x-ray. His clinical picture is consistent with pneumonia, which would need to be considered healthcare associated given his recent hospitalization. He did have a persistent cough on his recent hospitalization, and a CT of the chest did reveal a new area of groundglass opacity in the right upper lobe, though it also revealed multilobar areas of consolidation, which were felt to be chronic. Unfortunately his cough is nonproductive; therefore his antibiotic treatment will need to remain empiric, with gram-negative rods, Staph, including MRSA, and atypical pathogens all possible. He has no other obvious source of sepsis, but his peritoneal fluid should be submitted for analysis. The bleeding from the urethral meatus is of unclear significance, but, if urine can be obtained, it should be submitted for culture. The right femoral hernia appears to be a new problem but not likely relevant to his current illness. Suggestion: 1. Would pursue CT of the chest 2. Would send peritoneal dialysate fluid for cell count and culture 3. Attempt to obtain a sputum culture 4. Straight cath for urine and, if any obtained, submit for culture and strep pneumo and Legionella antigens 5. Aggressive pulmonary toilet 6. Consider need for stress steroids 7. Restart Azithromycin 500 mg IV every 24 hours 8. Continue Ceftazidime 1 g IV every 24 hours Consult Acknowledgment - Thank you for your consult request.
--- NOTE | 2017-11-21 13:45 | Cons- Endocrinology ---
General Information and HPI Consulting Request Date of Consult: 11/21/17 Requested By: ICU team Reason for Consult: evalution of hypotension Source of Information: patient, family, old records Exam Limitations: no limitations History of Present Illness: 67-year-old gentleman with multiple myeloma on chemotherapy (regimen includes dexamethasone twice a month x 3 years), end-stage renal disease on peritoneal dialysis, was admitted with hypotension. As per family, his BP was running low at home with SBP in the 90s. In 10/2017 when he was in for pneumonia, he was put on midodrine and his BP improved. Currently he is still on Midodrine 7.5 mg x 3 times a day. In hospital, his BP has been between 80-100/ 50-76. His appetite has been poor and has lost 14 pounds over past 2-3 weeks. On 11/20/2017, random cortisol was 31.8. Allergies/Medications Allergies: Coded Allergies: oxycodone (Intermediate, DELERIUM 11/20/17) Home Med List: Acyclovir 200 MG CAPSULE 1 CAP PO DAILY SHINGLE PREVENTION (Reported) Carvedilol 3.125 MG TABLET 1 TAB PO BID BLOOD PRESSURE Lubiprostone (Amitiza) 24 MCG CAPSULE 1 CAP PO BID GI (Reported) Magnesium Oxide 400 MG TABLET 1 TAB PO DAILY HYPOMAGNESEMIA Oxycodone HCl 10 MG TABLET 1-2 TAB PO Q4-6H PRN PAIN (Reported) Oxycodone HCl (Oxycodone HCl ER) 20 MG TAB.ER.12H 1 TAB PO BID PAIN (Reported ) Prochlorperazine Maleate 10 MG TABLET 1 TAB PO Q6 PRN N/V (Reported) Sevelamer Carbonate (Renvela) 800 MG TABLET 4 TAB PO WM KIDNEYS (Reported) Sevelamer Carbonate (Renvela) 800 MG TABLET 2 TAB PO TID PRN KIDNEYS ( Reported) Vit B Cmplx 3/FA/Vit C/Biotin (Nephro-Nola Rx Tablet) 1 MG-60 MG-300 MCG TABLET 1 TAB PO DAILY SUPPLEMENT (Reported) Review of Systems Review of Systems Constitutional: Reports: see HPI, malaise, weakness. Cardiovascular: Denies: chest pain. Respiratory: Reports: cough. Denies: short of breath. GI: Reports: see HPI (decreased appetite). Hematologic/Endocrine: Denies: polyuria, polydipsia. 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 Home Services at Home: Nursing, Occupational Therapy, Physical Therapy Smoking Status: Never Smoked ETOH Use: denies use Illicit Drug Use: denies illicit drug use Functional Ability ADLs Independent: dressing, eating, toileting, bathing. Ambulation: independent IADLs Independent: shopping, housework, finances, food prep, telephone, transportation , medication admin. Exam & Diagnostic Data Last 24 Hrs of Vital Signs/I&O Vital Signs Date Time Temp Pulse Resp B/P B/P Pulse O2 O2 Flow FiO2 Mean Ox Delivery Rate 11/21 1200 92 Nasal 4.0L Cannula 11/21 0800 99.2 103 22 84/50 94 Nasal Cannula 11/21 0800 93 Nasal 4.0L Cannula 11/21 0400 94 Nasal 2.0L Cannula 11/21 0000 98.9 112 33 100/76 93 Nasal 2.0L Cannula 11/21 0000 94 Nasal 2.0L Cannula 11/20 2312 98.9 98 20 85/52 94 Nasal 2.0L Cannula 11/20 2142 99.5 112 18 87/54 95 Nasal Cannula 11/20 2022 99.8 113 16 89/65 92 Room Air 11/20 1514 96 Room Air Room Air 11/20 1432 99.1 122 22 90/60 94 Room Air Room Air Intake & Output 11/21 1600 08 0800 05/08 0000 Intake Total 2610 200 Output Total 1100 3200 Balance -1100 -590 200 Intake, 2300 Dialysate Intake, IV 250 Intake, Oral 60 200 Output, 1100 3200 Dialysate Patient 144 lb 146 lb 144 lb Weight Weight Bed scale Bed scale Measurement Method Physical Exam General Appearance: no apparent distress Neck: normal inspection Respiratory: decreased breath sounds Cardiovascular: tachycardia (mild) Gastrointestinal: soft, non-tender Extremities: no edema Labs/Tyler Results: Laboratory Tests 11/21 11/21 1216 0600 Chemistry Troponin I Cancelled Hematology CBC w Diff NO MAN DIFF REQ WBC (4.8 - 10.8 /CUMM) 4.2 L RBC (4.70 - 6.10 /CUMM) 2.44 L Hgb (14.0 - 18.0 G/DL) 7.9 L Hct (42 - 52 %) 23.2 L MCV (80.0 - 94.0 FL) 95.1 H MCH (27.0 - 31.0 PG) 32.5 H MCHC (33.0 - 37.0 G/DL) 34.2 RDW (11.5 - 14.5 %) 18.9 H Plt Count (130 - 400 /CUMM) 133 MPV (7.4 - 10.4 FL) 8.2 Gran % (42.2 - 75.2 %) 75.5 H Lymphocytes % (20.5 - 51.1 %) 14.0 L Monocytes % (1.7 - 9.3 %) 9.8 H Eosinophils % (0 - 5 %) 0.3 Basophils % (0.0 - 2.0 %) 0.4 Absolute Granulocytes (1.4 - 6.5 /CUMM) 3.1 Absolute Lymphocytes (1.2 - 3.4 /CUMM) 0.6 L Absolute Monocytes (0.10 - 0.60 /CUMM) 0.4 Absolute Eosinophils (0.0 - 0.7 /CUMM) 0 Absolute Basophils (0.0 - 0.2 /CUMM) 0 11/21 11/21 0555 0505 Chemistry Sodium (137 - 145 mmol/L) 137 Potassium (3.5 - 5.1 mmol/L) 3.5 Chloride (98 - 107 mmol/L) 96 L Carbon Dioxide (22 - 30 mmol/L) 27 Anion Gap (5 - 16) 14 BUN (9 - 20 mg/dL) 55 H Creatinine (0.7 - 1.2 mg/dL) 11.7 *H Estimated GFR (>60 ml/min) 4 L BUN/Creatinine Ratio (7 - 25 %) 4.7 L Troponin I (<0.11 ng/ml) 0.08 Hematology CBC w Diff NO MAN DIFF REQ NO MAN DIFF REQ WBC (4.8 - 10.8 /CUMM) 4.0 L 4.0 L RBC (4.70 - 6.10 /CUMM) 2.23 L 2.26 L Hgb (14.0 - 18.0 G/DL) 7.2 *L 7.3 *L Hct (42 - 52 %) 21.8 L 22.0 L MCV (80.0 - 94.0 FL) 97.6 H 97.5 H MCH (27.0 - 31.0 PG) 32.3 H 32.1 H MCHC (33.0 - 37.0 G/DL) 33.1 33.0 RDW (11.5 - 14.5 %) 18.1 H 18.3 H Plt Count (130 - 400 /CUMM) 125 L 124 L MPV (7.4 - 10.4 FL) 7.6 7.7 Gran % (42.2 - 75.2 %) 73.5 74.7 Lymphocytes % (20.5 - 51.1 %) 12.9 L 13.7 L Monocytes % (1.7 - 9.3 %) 13.0 H 11.1 H Eosinophils % (0 - 5 %) 0.4 0.3 Basophils % (0.0 - 2.0 %) 0.2 0.2 Absolute Granulocytes (1.4 - 6.5 /CUMM) 2.9 3.0 Absolute Lymphocytes (1.2 - 3.4 /CUMM) 0.5 L 0.5 L Absolute Monocytes (0.10 - 0.60 /CUMM) 0.5 0.4 Absolute Eosinophils (0.0 - 0.7 /CUMM) 0 0 Absolute Basophils (0.0 - 0.2 /CUMM) 0 0 11/20 11/20 11/20 2330 1554 1510 Chemistry Sodium (137 - 145 mmol/L) 138 Potassium (3.5 - 5.1 mmol/L) 4.2 Chloride (98 - 107 mmol/L) 93 L Carbon Dioxide (22 - 30 mmol/L) 29 Anion Gap (5 - 16) 16 BUN (9 - 20 mg/dL) 57 H Creatinine (0.7 - 1.2 mg/dL) 11.3 *H Estimated GFR (>60 ml/min) 5 L BUN/Creatinine Ratio (7 - 25 %) 5.0 L Glucose (65 - 99 mg/dL) 101 H Lactic Acid (0.7 - 2.1 mmol/L) 1.8 Calcium (8.4 - 10.2 mg/dL) 8.5 Phosphorus (2.5 - 4.5 mg/dL) 6.8 H Magnesium (1.6 - 2.3 mg/dL) 1.5 L Total Bilirubin (0.2 - 1.3 mg/dL) 0.9 AST (17 - 59 U/L) 12 L ALT (21 - 72 U/L) 18 L Alkaline Phosphatase (< 127 U/L) 72 Troponin I (<0.11 ng/ml) 0.06 0.07 [id number] Pept (<125 pg/mL) 61073 H Total Protein (6.3 - 8.2 g/dL) 7.1 Albumin (3.5 - 5.0 g/dL) 3.2 L Globulin (1.9 - 4.2 gm/dL) 3.9 Albumin/Globulin Ratio (1.1 - 2.2 %) 0.8 L Cortisol PM Sample (1.7 - 14.1) 31.8 H Coagulation PT (9.4 - 12.5 SEC) 12.4 INR (0.90 - 1.17) 1.14 APTT (25 - 37 SEC) 25 Hematology CBC w Diff NO MAN DIFF REQ WBC (4.8 - 10.8 /CUMM) 4.8 RBC (4.70 - 6.10 /CUMM) 2.78 L Hgb (14.0 - 18.0 G/DL) 8.9 L Hct (42 - 52 %) 27.2 L MCV (80.0 - 94.0 FL) 97.6 H MCH (27.0 - 31.0 PG) 32.1 H MCHC (33.0 - 37.0 G/DL) 32.9 L RDW (11.5 - 14.5 %) 18.6 H Plt Count (130 - 400 /CUMM) 136 MPV (7.4 - 10.4 FL) 7.7 Gran % (42.2 - 75.2 %) 72.1 Lymphocytes % (20.5 - 51.1 %) 14.6 L Monocytes % (1.7 - 9.3 %) 11.2 H Eosinophils % (0 - 5 %) 0.3 Basophils % (0.0 - 2.0 %) 1.8 Absolute Granulocytes (1.4 - 6.5 /CUMM) 3.5 Absolute Lymphocytes (1.2 - 3.4 /CUMM) 0.7 L Absolute Monocytes (0.10 - 0.60 /CUMM) 0.5 Absolute Eosinophils (0.0 - 0.7 /CUMM) 0 Absolute Basophils (0.0 - 0.2 /CUMM) 0.1 Assessment/Plan Assessment/Plan 67-year-old gentleman with multiple myeloma on chemotherapy (regimen includes dexamethasone twice a month x 3 years), end-stage renal disease on peritoneal dialysis, was admitted with hypotension. He has been on Midodrine 7.5 mg x 3 times a day. Random cortisol was 31.8 suggestive of normal corticoadrenal function. I have recommended repeat am cortisol just to make sure. In addition, I have recommended checking renin and aldosterone level. I will consider giving patient Florinef as it is indicated. will follow. Consult Acknowledgment - Thank you for your consult request.
--- NOTE | 2017-11-21 15:05 | Cons- Nephrology ---
General Information and HPI Consulting Request Date of Consult: 11/21/17 Requested By: Prince Monzon MD History of Present Illness: Mr. Grant is a 67 yo gentleman with ESRD on home peritoneal dialysis, myeloma on treatment for the same who was recently hospitalized with strep pneumonia bacteremia which was treated with IV antibiotics. He is now admitted with persistent cough and hypotension. HE denies fevers but has had poor po intake over the past week or so Allergies/Medications Allergies: Coded Allergies: oxycodone (Intermediate, DELERIUM 11/20/17) Home Med List: Acyclovir 200 MG CAPSULE 1 CAP PO DAILY SHINGLE PREVENTION (Reported) Carvedilol 3.125 MG TABLET 1 TAB PO BID BLOOD PRESSURE Lubiprostone (Amitiza) 24 MCG CAPSULE 1 CAP PO BID GI (Reported) Magnesium Oxide 400 MG TABLET 1 TAB PO DAILY HYPOMAGNESEMIA Oxycodone HCl 10 MG TABLET 1-2 TAB PO Q4-6H PRN PAIN (Reported) Oxycodone HCl (Oxycodone HCl ER) 20 MG TAB.ER.12H 1 TAB PO BID PAIN (Reported ) Prochlorperazine Maleate 10 MG TABLET 1 TAB PO Q6 PRN N/V (Reported) Sevelamer Carbonate (Renvela) 800 MG TABLET 4 TAB PO WM KIDNEYS (Reported) Sevelamer Carbonate (Renvela) 800 MG TABLET 2 TAB PO TID PRN KIDNEYS ( Reported) Vit B Cmplx 3/FA/Vit C/Biotin (Nephro-Nola Rx Tablet) 1 MG-60 MG-300 MCG TABLET 1 TAB PO DAILY SUPPLEMENT (Reported) Past History Travel History Traveled to [place] past 21 day No Medical History Blood Transfusion Hx: Yes Neurological: NONE EENT: NONE Cardiovascular: AFIB, hypertension Respiratory: NONE Gastrointestinal: NONE Hepatic: NONE Renal: END-STAGE RENAL DISEASE ON PERITONEAL Musculoskeletal: chronic back pain, osteoporosis Psychiatric: NONE Endocrine: NONE Cancer(s): multiple myeloma 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 Home Services at Home: Nursing, Occupational Therapy, Physical Therapy Smoking Status: Never Smoked ETOH Use: denies use Illicit Drug Use: denies illicit drug use Functional Ability ADLs Independent: dressing, eating, toileting, bathing. Ambulation: independent IADLs Independent: shopping, housework, finances, food prep, telephone, transportation , medication admin. Exam & Diagnostic Data Vital Signs and I&O Pleasant M Comfortable 84/50 103 99.2 Skin neg rash Eyes anicteric ENT moist lungs rhonchi bilaterally (upper airway sounds) Cor RRR Abd soft N/T Ext neg edema Results Pertinent Lab Results: Hg 7.9 WBC 4.2 Plt 133 137 / 96 / 55 / 3.5 / 27 / 11.7\ CXR poor insiration no infiltrate/CHF Assessment/Plan Assessment/Recommendations Assessment: ESRD admitted with cough/hypotension. Intravascular volume appears okay (could be a bit low). Pt given isotonic fluids. Will change PD to all 1.5%D to minimize UF. Hg low. Could start epogen 10,000 u SQ weekly and consider transfusion ( likely in part due to myeloma). K lowish being replaced. Change diet to regular. Discussed with ICU team. will follow. Nasir Khalil MD Recommendations: .
[2017-11-21 16:00] VITALS: BP 88/60
--- NOTE | 2017-11-21 17:52 | Cons- General Surgery ---
General Information and HPI Consulting Request Date of Consult: 11/21/17 Requested By: Prince Monzon MD History of Present Illness: Patient is 67yo male on three years' duration peritoneal dialysis. Currently admitted to medical service with pulmonary infection. He was noted to have new swelling in the right inguinal region. Patient's notes that came on recently. There is no pain. There is noted swelling without nausea or vomiting or change to his bowel function. Allergies/Medications Allergies: Coded Allergies: oxycodone (Intermediate, DELERIUM 11/20/17) Home Med List: Acyclovir 200 MG CAPSULE 1 CAP PO DAILY SHINGLE PREVENTION (Reported) Carvedilol 3.125 MG TABLET 1 TAB PO BID BLOOD PRESSURE Lubiprostone (Amitiza) 24 MCG CAPSULE 1 CAP PO BID GI (Reported) Magnesium Oxide 400 MG TABLET 1 TAB PO DAILY HYPOMAGNESEMIA Oxycodone HCl 10 MG TABLET 1-2 TAB PO Q4-6H PRN PAIN (Reported) Oxycodone HCl (Oxycodone HCl ER) 20 MG TAB.ER.12H 1 TAB PO BID PAIN (Reported ) Prochlorperazine Maleate 10 MG TABLET 1 TAB PO Q6 PRN N/V (Reported) Sevelamer Carbonate (Renvela) 800 MG TABLET 4 TAB PO WM KIDNEYS (Reported) Sevelamer Carbonate (Renvela) 800 MG TABLET 2 TAB PO TID PRN KIDNEYS ( Reported) Vit B Cmplx 3/FA/Vit C/Biotin (Nephro-Nola Rx Tablet) 1 MG-60 MG-300 MCG TABLET 1 TAB PO DAILY SUPPLEMENT (Reported) Past History Medical History Blood Transfusion Hx: Yes Neurological: NONE EENT: NONE Cardiovascular: AFIB, hypertension Respiratory: NONE Gastrointestinal: NONE Hepatic: NONE Renal: END-STAGE RENAL DISEASE ON PERITONEAL Musculoskeletal: chronic back pain, osteoporosis Psychiatric: NONE Endocrine: NONE Cancer(s): multiple 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 Home Services at Home: Nursing, Occupational Therapy, Physical Therapy Smoking Status: Never Smoked ETOH Use: denies use Illicit Drug Use: denies illicit drug use Functional Ability ADLs Independent: dressing, eating, toileting, bathing. Ambulation: independent IADLs Independent: shopping, housework, finances, food prep, telephone, transportation , medication admin. Review of Systems Review of Systems: Dyspnea. No exertional chest pain. No nausea vomiting or change to his bowel function. There is intermittent hematuria. Fatigue. Remainder 12 points negative Exam & Diagnostic Data Vital Signs and I&O Vital Signs Date Time Temp Pulse Resp B/P B/P Pulse O2 O2 Flow FiO2 Mean Ox Delivery Rate 11/21 1600 100.4 107 28 88/60 93 Nasal 4.0L Cannula 11/21 1553 95 Nasal 4.0L Cannula 11/21 1453 Nasal 4.0L Cannula 11/21 1200 92 Nasal 4.0L Cannula 11/21 0800 99.2 103 22 84/50 94 Nasal Cannula 11/21 0800 93 Nasal 4.0L Cannula 11/21 0400 94 Nasal 2.0L Cannula 11/21 0000 98.9 112 33 100/76 93 Nasal 2.0L Cannula 11/21 0000 94 Nasal 2.0L Cannula 11/20 2312 98.9 98 20 85/52 94 Nasal 2.0L Cannula 11/20 2142 99.5 112 18 87/54 95 Nasal Cannula 11/20 2022 99.8 113 16 89/65 92 Room Air Intake & Output 11/21 1600 08 0800 /08 0000 11/20 1600 11/20 0800 05 0000 Intake Total 930 2610 200 Output Total 2700 3200 Balance -1770 -590 200 Intake, Blood 400 Product Intake, 2300 Dialysate Intake, IV 30 250 Intake, Oral 500 60 200 Output, 2700 3200 Dialysate Patient 144 lb 146 lb 144 lb Weight Weight Bed scale Bed scale Measurement Method Physical Exam: Gen.: He looks his stated age his, normal habitus no distress HEENT: Anicteric PERRL EOMI Abdomen: Soft nontender nondistended no erythema around his dialysis catheter. There is a reducible, fluid-filled right inguinal hernia. Last 24 Hours of Labs: Laboratory Tests 11/21 11/21 1216 0600 Chemistry Troponin I Cancelled Hematology CBC w Diff NO MAN DIFF REQ WBC (4.8 - 10.8 /CUMM) 4.2 L RBC (4.70 - 6.10 /CUMM) 2.44 L Hgb (14.0 - 18.0 G/DL) 7.9 L Hct (42 - 52 %) 23.2 L MCV (80.0 - 94.0 FL) 95.1 H MCH (27.0 - 31.0 PG) 32.5 H MCHC (33.0 - 37.0 G/DL) 34.2 RDW (11.5 - 14.5 %) 18.9 H Plt Count (130 - 400 /CUMM) 133 MPV (7.4 - 10.4 FL) 8.2 Gran % (42.2 - 75.2 %) 75.5 H Lymphocytes % (20.5 - 51.1 %) 14.0 L Monocytes % (1.7 - 9.3 %) 9.8 H Eosinophils % (0 - 5 %) 0.3 Basophils % (0.0 - 2.0 %) 0.4 Absolute Granulocytes (1.4 - 6.5 /CUMM) 3.1 Absolute Lymphocytes (1.2 - 3.4 /CUMM) 0.6 L Absolute Monocytes (0.10 - 0.60 /CUMM) 0.4 Absolute Eosinophils (0.0 - 0.7 /CUMM) 0 Absolute Basophils (0.0 - 0.2 /CUMM) 0 11/21 11/21 0555 0505 Chemistry Sodium (137 - 145 mmol/L) 137 Potassium (3.5 - 5.1 mmol/L) 3.5 Chloride (98 - 107 mmol/L) 96 L Carbon Dioxide (22 - 30 mmol/L) 27 Anion Gap (5 - 16) 14 BUN (9 - 20 mg/dL) 55 H Creatinine (0.7 - 1.2 mg/dL) 11.7 *H Estimated GFR (>60 ml/min) 4 L BUN/Creatinine Ratio (7 - 25 %) 4.7 L Troponin I (<0.11 ng/ml) 0.08 Hematology CBC w Diff NO MAN DIFF REQ NO MAN DIFF REQ WBC (4.8 - 10.8 /CUMM) 4.0 L 4.0 L RBC (4.70 - 6.10 /CUMM) 2.23 L 2.26 L Hgb (14.0 - 18.0 G/DL) 7.2 *L 7.3 *L Hct (42 - 52 %) 21.8 L 22.0 L MCV (80.0 - 94.0 FL) 97.6 H 97.5 H MCH (27.0 - 31.0 PG) 32.3 H 32.1 H MCHC (33.0 - 37.0 G/DL) 33.1 33.0 RDW (11.5 - 14.5 %) 18.1 H 18.3 H Plt Count (130 - 400 /CUMM) 125 L 124 L MPV (7.4 - 10.4 FL) 7.6 7.7 Gran % (42.2 - 75.2 %) 73.5 74.7 Lymphocytes % (20.5 - 51.1 %) 12.9 L 13.7 L Monocytes % (1.7 - 9.3 %) 13.0 H 11.1 H Eosinophils % (0 - 5 %) 0.4 0.3 Basophils % (0.0 - 2.0 %) 0.2 0.2 Absolute Granulocytes (1.4 - 6.5 /CUMM) 2.9 3.0 Absolute Lymphocytes (1.2 - 3.4 /CUMM) 0.5 L 0.5 L Absolute Monocytes (0.10 - 0.60 /CUMM) 0.5 0.4 Absolute Eosinophils (0.0 - 0.7 /CUMM) 0 0 Absolute Basophils (0.0 - 0.2 /CUMM) 0 0 05/07 2330 Chemistry Troponin I (<0.11 ng/ml) 0.06 Assessment/Plan Assessment/Plan Asymptomatic right inguinal hernia. The contents are that of peritoneal dialysate. There is no bowel in the hernia defect. his hernia at this point can be observed. Recommend repair of his inguinal hernia after he has recovered sufficiently from his pulmonary infection. Operative approach would be best performed in open fashion so that the peritoneal cavity can be not entered and avoid interference with his dialysis catheter. Copies To: Frederic KRISHNAMURTHY,Tad Navarro Consult Acknowledgment - Thank you for your consult request.
[2017-11-21 18:53] LABS: ABSOLUTE BASOPHIL COUNT 0 /CUMM (0.0-0.2); ABSOLUTE EOSINOPHIL COUNT 0 /CUMM (0.0-0.7); ABSOLUTE GRANULOCYTE CT 2.7 /CUMM (1.4-6.5); ABSOLUTE LYMPH COUNT 0.4 /CUMM (1.2-3.4); ABSOLUTE MONOCYTE COUNT 0.3 /CUMM (0.10-0.60); BASOPHIL % 0.3 % (0.0-2.0); EOSINOPHIL % 0.4 % (0-5); GRANULOCYTE % 78.1 % (42.2-75.2); HEMATOCRIT 26.8 % (42-52); MEAN CORPUSCULAR HGB CONC 33.5 G/DL (33.0-37.0); MEAN CORPUSCULAR VOLUME 95.5 FL (80.0-94.0); MEAN PLATELET VOLUME 8.1 FL (7.4-10.4); PLATELET COUNT 140 /CUMM (130-400); RED BLOOD CELL CT 2.81 /CUMM (4.70-6.10); WHITE BLOOD CELL COUNT 3.5 /CUMM (4.8-10.8)
--- NOTE | 2017-11-21 23:01 | CT SCAN REPORT ---
EXAMINATION: CT CHEST WITHOUT CONTRAST CLINICAL INFORMATION: Hypotension. Cough. COMPARISON: Radiograph from 11/21/2017. CT from 10/27/2017. TECHNIQUE: Multidetector volumetric CT imaging of the chest was done. Axial MIP volume rendering provided. Sagittal and coronal reformatted images were obtained. DLP: 239 mGy-cm FINDINGS: LUNGS: The central airways are patent. There is diffuse consolidation throughout a majority of the left lower lobe with air bronchograms. There is no significant associated pleural effusion. There is additional consolidation dependently within the right lower lobe, also with air bronchograms. When compared to the previous CT, the findings on the right are similar. The left-sided consolidation is significantly increased. There is no pneumothorax. The groundglass opacity in the anterior aspect of the right upper lobe has resolved. MEDIASTINUM: The heart is normal in size. Coronary artery calcifications are noted. No pericardial effusion. No mediastinal lymphadenopathy. The thyroid gland is unremarkable. AXILLA: No lymphadenopathy. UPPER ABDOMEN: There is a small volume of ascites. Cholelithiasis noted. Bilateral renal calculi. The largest is seen at the upper pole of the left kidney measuring 0.6 cm. This is 5.5 cm from the posterior axillary line, measuring 660 Hounsfield units. OSSEOUS STRUCTURES: No acute or suspicious osseous abnormality. The bones are osteopenic. There are diffuse compression deformities throughout the thoracic spine and visualized lumbar spine, without change from prior. IMPRESSION: 1. There is increasing consolidation of the left lower lobe, now affecting nearly the entire lobe. Air bronchograms are present. Similar consolidation dependently in the right lower lobe. These findings could represent atelectasis or pneumonia. 2. Resolution of the anterior right upper lobe groundglass opacity. 3. Cholelithiasis. Increase in small volume ascites. Nephrolithiasis.
[2017-11-22 05:26] LABS: ABSOLUTE BASOPHIL COUNT 0 /CUMM (0.0-0.2); ABSOLUTE EOSINOPHIL COUNT 0 /CUMM (0.0-0.7); ABSOLUTE GRANULOCYTE CT 3.7 /CUMM (1.4-6.5); ABSOLUTE LYMPH COUNT 0.6 /CUMM (1.2-3.4); ABSOLUTE MONOCYTE COUNT 0.4 /CUMM (0.10-0.60); BASOPHIL % 0.2 % (0.0-2.0); EOSINOPHIL % 0.1 % (0-5); GRANULOCYTE % 79.5 % (42.2-75.2); HEMATOCRIT 24.3 % (42-52); MEAN CORPUSCULAR HGB 31.9 PG (27.0-31.0); MEAN CORPUSCULAR HGB CONC 33.1 G/DL (33.0-37.0); MEAN CORPUSCULAR VOLUME 96.3 FL (80.0-94.0); MEAN PLATELET VOLUME 8.1 FL (7.4-10.4); PLATELET COUNT 118 /CUMM (130-400); RBC DISTRIBUTION WIDTH 19.3 % (11.5-14.5); RED BLOOD CELL CT 2.52 /CUMM (4.70-6.10); WHITE BLOOD CELL COUNT 4.7 /CUMM (4.8-10.8)
--- NOTE | 2017-11-22 07:20 | PN- Resident CRCU ---
Subjective HPI/CRCU Issues: Given 500+250 mL fluid bolus for hypotension in the 70s/doppler systolic. Patient's states that he was confused however the patient denies this. Received tylenol for fever. Objective Vital Signs & I&O Last 8 Hrs of Vitals and I&O: Laboratory Tests 11/22 11/22 11/22 1022 0515 0430 Chemistry Renin Pending Aldosterone Pending Cancelled Hematology CBC w Diff NO MAN DIFF REQ WBC (4.8 - 10.8 /CUMM) 4.7 L RBC (4.70 - 6.10 /CUMM) 2.52 L Hgb (14.0 - 18.0 G/DL) 8.0 L Hct (42 - 52 %) 24.3 L MCV (80.0 - 94.0 FL) 96.3 H MCH (27.0 - 31.0 PG) 31.9 H MCHC (33.0 - 37.0 G/DL) 33.1 RDW (11.5 - 14.5 %) 19.3 H Plt Count (130 - 400 /CUMM) 118 L MPV (7.4 - 10.4 FL) 8.1 Gran % (42.2 - 75.2 %) 79.5 H Lymphocytes % (20.5 - 51.1 %) 12.4 L Monocytes % (1.7 - 9.3 %) 7.8 Eosinophils % (0 - 5 %) 0.1 Basophils % (0.0 - 2.0 %) 0.2 Absolute Granulocytes (1.4 - 6.5 /CUMM) 3.7 Absolute Lymphocytes (1.2 - 3.4 /CUMM) 0.6 L Absolute Monocytes (0.10 - 0.60 /CUMM) 0.4 Absolute Eosinophils (0.0 - 0.7 /CUMM) 0 Absolute Basophils (0.0 - 0.2 /CUMM) 0 11/22 11/21 11/21 0425 1850 1759 Chemistry Sodium (137 - 145 mmol/L) 138 Potassium (3.5 - 5.1 mmol/L) 3.5 Chloride (98 - 107 mmol/L) 96 L Carbon Dioxide (22 - 30 mmol/L) 27 Anion Gap (5 - 16) 15 BUN (9 - 20 mg/dL) 53 H Creatinine (0.7 - 1.2 mg/dL) 11.2 *H Estimated GFR (>60 ml/min) 5 L Glucose (65 - 99 mg/dL) 101 H Calcium (8.4 - 10.2 mg/dL) 8.1 L Phosphorus (2.5 - 4.5 mg/dL) 6.3 H Magnesium (1.6 - 2.3 mg/dL) 1.6 Total Bilirubin (0.2 - 1.3 mg/dL) 0.8 AST (17 - 59 U/L) 9 L ALT (21 - 72 U/L) 13 L Albumin (3.5 - 5.0 g/dL) 2.7 L Cortisol AM Sample (4.46 - 22.7 ug/dL) 20.9 Hematology CBC w Diff NO MAN DIFF REQ WBC (4.8 - 10.8 /CUMM) 3.5 L RBC (4.70 - 6.10 /CUMM) 2.81 L Hgb (14.0 - 18.0 G/DL) 9.0 L Hct (42 - 52 %) 26.8 L MCV (80.0 - 94.0 FL) 95.5 H MCH (27.0 - 31.0 PG) 32.0 H MCHC (33.0 - 37.0 G/DL) 33.5 RDW (11.5 - 14.5 %) 19.0 H Plt Count (130 - 400 /CUMM) 140 MPV (7.4 - 10.4 FL) 8.1 Gran % (42.2 - 75.2 %) 78.1 H Lymphocytes % (20.5 - 51.1 %) 11.6 L Monocytes % (1.7 - 9.3 %) 9.6 H Eosinophils % (0 - 5 %) 0.4 Basophils % (0.0 - 2.0 %) 0.3 Absolute Granulocytes (1.4 - 6.5 /CUMM) 2.7 Absolute Lymphocytes (1.2 - 3.4 /CUMM) 0.4 L Absolute Monocytes (0.10 - 0.60 /CUMM) 0.3 Absolute Eosinophils (0.0 - 0.7 /CUMM) 0 Absolute Basophils (0.0 - 0.2 /CUMM) 0 Misc Hematology Test (%) Other Body Source Fluid WBC (0 - 5 /CUMM) 9 H Fld Total RBCs Counted (0 /CUMM) 4 H 05/08 1216 Hematology CBC w Diff NO MAN DIFF REQ WBC (4.8 - 10.8 /CUMM) 4.2 L RBC (4.70 - 6.10 /CUMM) 2.44 L Hgb (14.0 - 18.0 G/DL) 7.9 L Hct (42 - 52 %) 23.2 L MCV (80.0 - 94.0 FL) 95.1 H MCH (27.0 - 31.0 PG) 32.5 H MCHC (33.0 - 37.0 G/DL) 34.2 RDW (11.5 - 14.5 %) 18.9 H Plt Count (130 - 400 /CUMM) 133 MPV (7.4 - 10.4 FL) 8.2 Gran % (42.2 - 75.2 %) 75.5 H Lymphocytes % (20.5 - 51.1 %) 14.0 L Monocytes % (1.7 - 9.3 %) 9.8 H Eosinophils % (0 - 5 %) 0.3 Basophils % (0.0 - 2.0 %) 0.4 Absolute Granulocytes (1.4 - 6.5 /CUMM) 3.1 Absolute Lymphocytes (1.2 - 3.4 /CUMM) 0.6 L Absolute Monocytes (0.10 - 0.60 /CUMM) 0.4 Absolute Eosinophils (0.0 - 0.7 /CUMM) 0 Absolute Basophils (0.0 - 0.2 /CUMM) 0 Vital Signs Date Time Temp Pulse Resp B/P B/P Pulse O2 O2 Flow FiO2 Mean Ox Delivery Rate 11/23 799 98.8 101 30 88/50 95 Nasal 4.0L Cannula 11/23 799 94 Nasal 4.0L Cannula 11/22 542 94 Nasal 4.0L Cannula 11/22 513 99.6 Exam General Appearance: no apparent distress, alert, awake Respiratory: L crackles and rhonchi, R course breath sounds at bases Cardiovascular: irregularly irregular rhythm. Systolic murmur. Gastrointestinal: normal bowel sounds, soft, non-tender Extremities: 2+ radial pulses, no LE edema Current Medications: Current Medications Sig/Christie Start time Last Medication Dose Route Stop Time Status Admin Acetaminophen 650 MG .STK-MED ONE 11/22 2347 DC PO 05/08 2349 Acetaminophen 650 MG Q6P PRN 11/20 2130 AC 11/21 PO 2354 Acetaminophen 1,000 MG Q6P PRN 11/20 2130 AC IV Acyclovir 200 MG DAILY 11/21 899 AC 11/22 PO 0854 Albuterol Sulfate 3 ML BID 11/21 1156 AC 11/22 INH 1144 Azithromycin 500 MG 1600 11/22 1600 AC Sodium Chloride 250 ML IV Azithromycin 500 MG ONCE ONE 11/21 1500 DC 11/21 Sodium Chloride 250 ML IV 11/21 1559 1618 Ceftazidime 1,000 MG DAILY 11/21 899 AC 11/22 IV 0854 Docusate Sodium 100 MG DAILY 11/22 1113 AC 11/22 PO 1204 Epoetin Elvin 10,000 UNITS QWED 11/22 899 AC 11/22 SC 0854 Guaifenesin 600 MG Q12 11/20 2309 AC 11/22 PO 0854 Ipratropium [place] 2.5 ML BID 11/21 1156 AC 11/22 INH 1144 Magnesium Oxide 400 MG DAILY 11/21 899 AC 11/22 PO 0854 Midodrine 7.5 MG ONCE ONE 11/22 0530 DC 11/22 PO 11/22 0531 0613 Midodrine 7.5 MG 0800,1200,1600 11/21 0230 AC 11/22 PO 1204 Oxycodone HCl 10 MG Q6 PRN 11/21 0015 AC PO Senna 187 MG AT BEDTIME 11/22 2100 AC PO Sevelamer Carbonate 3,200 MG WM 11/21 08 AC 11/22 PO 1203 Sevelamer Carbonate 1,600 MG TID PRN 11/21 0015 AC PO Sodium Chloride 500 ML BOLUS ONE 11/22 0530 DC 11/22 IV 11/22 0629 0526 Sodium Chloride 250 ML BOLUS ONE 11/22 0515 CAN IV 11/22 0614 Sodium Chloride 250 ML BOLUS ONE 11/22 0415 DC 11/22 IV 11/22 0514 0526 Impression/Plan Impression/Problem List Impression: A: 67-year-old male with past medical history of multiple myeloma currently on chemotherapy (last on November 15) and dexamethasone, end-stage renal disease on peritoneal dialysis, atrial fibrillation not on anticoagulation, hypertension, chronic back pain, osteoporosis and 10 for persistent cough in the setting of due to strep pneumo, hypertension, and elevated proBNP. Problem list: Respiratory #Persistent cough with recent admission for sepsis 2/[address] reveals increasing consolidation of the left lower lobe, now affecting nearly the entire lobe. Air bronchograms are present. Similar consolidation dependently in the right lower lobe -cont ceftaz,azithro -f/u pancx and cx/cell count of dialysylate fluid -cont trc nebs, pulm toilet -f/u ID recs Infection #Shingles ppx -cont acyclovir Cardiac #Hypotension Possible due to anemia or sepsis. Trops and EKG negative for ACS Random cortisol elevated but AM cortisol normal. Endo does not think the patient has adrenal insufficency. -cont midodrine -f/u repeat plasma renin and aldoslterone -f/u endo recs #[place] in the setting of hx of A. fib currently not on any anticoagulation Possibly 2/2 to anemia. He is anticoagulated as he is anemic and a hx of MM and ESRD. Beta blockers and CCB are not a good option given his hypotension. Digoxin is not given at this time due to renal dysfuction. Amiodarone is not optimal as he has not anticoagulated. -Cardiology will discuss potential watchman device -continue treating pna which is contributing to his afib #Elevated proBNP with no signs of chf/fluid overload ProBNP 45715 Last echo October lvef 65-70% -unclear cause. possible due to fluids received. most likely due to ESRD Heme onc #Anemia Transfused 1 unit Posttransfusion H/H 7.9/23.2 -Spoke with Dr. Graham who did not want to transfuse at the moment. Repeat cbc @ 6pm. -stool guaiac prn -maintain hct >25% -cont epogen 10k units weekly per nephro #hx of Multiple myeloma on chemo and dexamethason [id number] -cont heme onc recs Metabolic #ESRD -cont peritoneal dialysis per nephro -cont sevelamer #electrolyte abnormallities Na 3.5 Mg 1.5 -replenish per nephrology -regular diet to maintain K+ Alimentary #abd hernia Seen by surgery who stated that it was an asymptomatic right inguinal hernia filled with peritoneal dialysate. There is no bowel in the hernia defect. -Recommend repair of his inguinal hernia after he has recovered sufficiently from his pulmonary infection. #consitpation -Start colace and senna #cholelithiasis CT found cholithiasis -cont to monitor as patient has no symptoms #Penile bloody spotting CT found b/l nephrolithiasis -consider urology consult -cont to monitor [facility] keepting -FULL CODE -regular diet -DVT ppx - ALPS Problem List: 1. Hernia 2. Anemia 3. Tachycardia 4. Hypotension 5. History of renal failure 6. History of multiple myeloma 7. Pulmonary edema 8. Pneumonia Pain Ratin Tomorrow's Labs & Rationales: cbc icu Plan DVT/Prophylaxis: alps due to anemia
[2017-11-22 08:00] VITALS: BP 88/50
--- NOTE | 2017-11-22 08:43 | PN- Hematology ---
Subjective Subjective: Yesterday's events reviewed, currently complaining of generalized weakness and cough 12 point review of systems otherwise unchanged Objective Vital Signs and I&Os Vital Signs Date Time Temp Pulse Resp B/P B/P Pulse O2 O2 Flow FiO2 Mean Ox Delivery Rate 11/22 0443 94 Nasal 4.0L Cannula 11/22 0514 99.6 11/21 2354 101.4 11/21 2319 94 Nasal 4.0L Cannula 11/21 202 93 Nasal 4.0L Cannula 11/21 2019 95 Nasal 4.0L Cannula 11/21 1600 100.4 107 28 88/60 93 Nasal 4.0L Cannula 11/21 1553 95 Nasal 4.0L Cannula 11/21 1453 Nasal 4.0L Cannula 11/21 1200 92 Nasal 4.0L Cannula Intake & Output 11/22 1600 11/22 0000 11/21 1600 11/21 0000 Intake Total 360 599 1101 200 Output Total 0 2700 3200 Balance 650 -1770 -590 200 Intake, Blood 400 Product Intake, 2300 Dialysate Intake, IV 250 30 250 Intake, Oral 400 500 60 200 Number 0 Bowel Movements Output, 0 2700 3200 Dialysate Patient 144 lb 146 lb 144 lb Weight Weight Bed scale Bed scale Measurement Method Gen.: in NAD ENT: Sclera anicteric Chest: Normal respiratory effort, decreased breath sounds Cor: RRR, no extra sounds Abdomen: Soft, bowel sounds present, no tenderness, no rebound Extremities: Without clubbing, cyanosis, or asymmetric edema Neurology: Lethargic but awake, no gross deficit Current Medications: Current Medications Sig/Christie Start time Last Medication Dose Route Stop Time Status Admin Acetaminophen 650 MG .STK-MED ONE 11/22 2347 DC PO 11/21 234 Acetaminophen 650 MG Q6P PRN 11/20 2129 AC 11/21 PO 2354 Acetaminophen 1,000 MG Q6P PRN 11/20 213 AC IV Acyclovir 200 MG DAILY 11/21 899 AC 11/21 PO 0934 Albuterol Sulfate 3 ML BID 11/21 1156 AC 11/21 INH 2024 Azithromycin 500 MG 1600 11/22 1600 AC Sodium Chloride 250 ML IV Azithromycin 500 MG ONCE ONE 11/21 1500 DC 11/21 Sodium Chloride 250 ML IV 11/21 1559 1618 Ceftazidime 1,000 MG DAILY 11/21 899 AC 11/21 IV 0934 Epoetin Elvin 10,000 UNITS QWED 11/22 899 AC SC Guaifenesin 600 MG Q12 11/20 2309 AC 11/21 PO 2219 Ipratropium [place] 2.5 ML BID 11/21 1156 AC 11/21 INH 4 Magnesium Oxide 400 MG DAILY 11/21 899 AC 11/21 PO 0934 Midodrine 7.5 MG ONCE ONE 11/22 529 DC 11/22 PO 11/22 0531 0613 Midodrine 7.5 MG 0800,1200,1600 11/21 0230 AC 11/22 PO 0816 Oxycodone HCl 10 MG Q6 PRN 11/21 0015 AC PO Potassium Chloride 40 MEQ ONCE ONE 11/21 899 DC PO 11/21 900 Sevelamer Carbonate 3,200 MG WM 11/22 799 AC 11/22 PO 0816 Sevelamer Carbonate 1,600 MG TID PRN 11/21 0015 AC PO Sodium Chloride 500 ML BOLUS ONE 11/22 529 DC 11/22 IV 11/22 0529 0526 Sodium Chloride 250 ML BOLUS ONE 11/22 0415 CAN IV 11/22 0514 Sodium Chloride 250 ML BOLUS ONE 11/22 0415 DC 11/22 IV 11/22 0514 0526 Results Last 24 Hours of Lab Results: Laboratory Tests 11/22 11/22 11/22 0515 0430 0425 Chemistry Sodium (137 - 145 mmol/L) 138 Potassium (3.5 - 5.1 mmol/L) 3.5 Chloride (98 - 107 mmol/L) 96 L Carbon Dioxide (22 - 30 mmol/L) 27 Anion Gap (5 - 16) 15 BUN (9 - 20 mg/dL) 53 H Creatinine (0.7 - 1.2 mg/dL) 11.2 *H Estimated GFR (>60 ml/min) 5 L Glucose (65 - 99 mg/dL) 101 H Calcium (8.4 - 10.2 mg/dL) 8.1 L Phosphorus (2.5 - 4.5 mg/dL) 6.3 H Magnesium (1.6 - 2.3 mg/dL) 1.6 Total Bilirubin (0.2 - 1.3 mg/dL) 0.8 AST (17 - 59 U/L) 9 L ALT (21 - 72 U/L) 13 L Albumin (3.5 - 5.0 g/dL) 2.7 L Renin Pending Aldosterone Pending Cortisol AM Sample (4.46 - 22.7 ug/dL) 20.9 Hematology CBC w Diff NO MAN DIFF REQ WBC (4.8 - 10.8 /CUMM) 4.7 L RBC (4.70 - 6.10 /CUMM) 2.52 L Hgb (14.0 - 18.0 G/DL) 8.0 L Hct (42 - 52 %) 24.3 L MCV (80.0 - 94.0 FL) 96.3 H MCH (27.0 - 31.0 PG) 31.9 H MCHC (33.0 - 37.0 G/DL) 33.1 RDW (11.5 - 14.5 %) 19.3 H Plt Count (130 - 400 /CUMM) 118 L MPV (7.4 - 10.4 FL) 8.1 Gran % (42.2 - 75.2 %) 79.5 H Lymphocytes % (20.5 - 51.1 %) 12.4 L Monocytes % (1.7 - 9.3 %) 7.8 Eosinophils % (0 - 5 %) 0.1 Basophils % (0.0 - 2.0 %) 0.2 Absolute Granulocytes (1.4 - 6.5 /CUMM) 3.7 Absolute Lymphocytes (1.2 - 3.4 /CUMM) 0.6 L Absolute Monocytes (0.10 - 0.60 /CUMM) 0.4 Absolute Eosinophils (0.0 - 0.7 /CUMM) 0 Absolute Basophils (0.0 - 0.2 /CUMM) 0 11/21 11/21 1850 1759 Hematology CBC w Diff NO MAN DIFF REQ WBC (4.8 - 10.8 /CUMM) 3.5 L RBC (4.70 - 6.10 /CUMM) 2.81 L Hgb (14.0 - 18.0 G/DL) 9.0 L Hct (42 - 52 %) 26.8 L MCV (80.0 - 94.0 FL) 95.5 H MCH (27.0 - 31.0 PG) 32.0 H MCHC (33.0 - 37.0 G/DL) 33.5 RDW (11.5 - 14.5 %) 19.0 H Plt Count (130 - 400 /CUMM) 140 MPV (7.4 - 10.4 FL) 8.1 Gran % (42.2 - 75.2 %) 78.1 H Lymphocytes % (20.5 - 51.1 %) 11.6 L Monocytes % (1.7 - 9.3 %) 9.6 H Eosinophils % (0 - 5 %) 0.4 Basophils % (0.0 - 2.0 %) 0.3 Absolute Granulocytes (1.4 - 6.5 /CUMM) 2.7 Absolute Lymphocytes (1.2 - 3.4 /CUMM) 0.4 L Absolute Monocytes (0.10 - 0.60 /CUMM) 0.3 Absolute Eosinophils (0.0 - 0.7 /CUMM) 0 Absolute Basophils (0.0 - 0.2 /CUMM) 0 Misc Hematology Test (%) Other Body Source Fluid WBC (0 - 5 /CUMM) 9 H Fld Total RBCs Counted (0 /CUMM) 4 H / 1216 Hematology CBC w Diff NO MAN DIFF REQ WBC (4.8 - 10.8 /CUMM) 4.2 L RBC (4.70 - 6.10 /CUMM) 2.44 L Hgb (14.0 - 18.0 G/DL) 7.9 L Hct (42 - 52 %) 23.2 L MCV (80.0 - 94.0 FL) 95.1 H MCH (27.0 - 31.0 PG) 32.5 H MCHC (33.0 - 37.0 G/DL) 34.2 RDW (11.5 - 14.5 %) 18.9 H Plt Count (130 - 400 /CUMM) 133 MPV (7.4 - 10.4 FL) 8.2 Gran % (42.2 - 75.2 %) 75.5 H Lymphocytes % (20.5 - 51.1 %) 14.0 L Monocytes % (1.7 - 9.3 %) 9.8 H Eosinophils % (0 - 5 %) 0.3 Basophils % (0.0 - 2.0 %) 0.4 Absolute Granulocytes (1.4 - 6.5 /CUMM) 3.1 Absolute Lymphocytes (1.2 - 3.4 /CUMM) 0.6 L Absolute Monocytes (0.10 - 0.60 /CUMM) 0.4 Absolute Eosinophils (0.0 - 0.7 /CUMM) 0 Absolute Basophils (0.0 - 0.2 /CUMM) 0 Cultures-negative thus far Assessment/Plan Hematology Assessment/Recommendations: 1. ID-patient being covered with broad-spectrum antibiotics, vigorous workup undertaken to identify source of infection 2. Multiple myeloma-transfuse as outlined
--- NOTE | 2017-11-22 09:29 | PN- Endocrinology ---
Assessment/Plan Endoscopy Assessment: 67-year-old gentleman with multiple myeloma on chemotherapy (regimen includes dexamethasone twice a month x 3 years), end-stage renal disease on peritoneal dialysis, was admitted with hypotension. He has been on Midodrine 7.5 mg x 3 times a day. Random cortisol was 31.8 and am cortisol was 20.9 suggestive of normal corticoadrenal function. Renin and Aldosterone level are still pending. will follow Plan: detail see above. Subjective Subjective: He had fever last night. He still has the cough this morning. Objective Last 24 Hrs of Vital Signs/I&O Vital Signs Date Time Temp Pulse Resp B/P B/P Pulse O2 O2 Flow FiO2 Mean Ox Delivery Rate 11/22 0443 94 Nasal 4.0L Cannula 11/22 0514 99.6 11/21 2354 101.4 11/21 2319 94 Nasal 4.0L Cannula 11/21 2025 93 Nasal 4.0L Cannula 11/21 2019 95 Nasal 4.0L Cannula 11/21 1600 100.4 107 28 88/60 93 Nasal 4.0L Cannula 11/21 1553 95 Nasal 4.0L Cannula 11/21 1453 Nasal 4.0L Cannula 11/21 1200 92 Nasal 4.0L Cannula Intake & Output 11/22 1600 11/22 0800 11/22 0000 Intake Total 650 Output Total 0 Balance 650 Intake, IV 250 Intake, Oral 400 Number 0 Bowel Movements Output, 0 Dialysate Results Pertinent Lab/Tyler Results: Laboratory Tests 11/22 11/22 11/22 0515 0430 0425 Chemistry Sodium (137 - 145 mmol/L) 138 Potassium (3.5 - 5.1 mmol/L) 3.5 Chloride (98 - 107 mmol/L) 96 L Carbon Dioxide (22 - 30 mmol/L) 27 Anion Gap (5 - 16) 15 BUN (9 - 20 mg/dL) 53 H Creatinine (0.7 - 1.2 mg/dL) 11.2 *H Estimated GFR (>60 ml/min) 5 L Glucose (65 - 99 mg/dL) 101 H Calcium (8.4 - 10.2 mg/dL) 8.1 L Phosphorus (2.5 - 4.5 mg/dL) 6.3 H Magnesium (1.6 - 2.3 mg/dL) 1.6 Total Bilirubin (0.2 - 1.3 mg/dL) 0.8 AST (17 - 59 U/L) 9 L ALT (21 - 72 U/L) 13 L Albumin (3.5 - 5.0 g/dL) 2.7 L Renin Pending Aldosterone Pending Cortisol AM Sample (4.46 - 22.7 ug/dL) 20.9 Hematology CBC w Diff NO MAN DIFF REQ WBC (4.8 - 10.8 /CUMM) 4.7 L RBC (4.70 - 6.10 /CUMM) 2.52 L Hgb (14.0 - 18.0 G/DL) 8.0 L Hct (42 - 52 %) 24.3 L MCV (80.0 - 94.0 FL) 96.3 H MCH (27.0 - 31.0 PG) 31.9 H MCHC (33.0 - 37.0 G/DL) 33.1 RDW (11.5 - 14.5 %) 19.3 H Plt Count (130 - 400 /CUMM) 118 L MPV (7.4 - 10.4 FL) 8.1 Gran % (42.2 - 75.2 %) 79.5 H Lymphocytes % (20.5 - 51.1 %) 12.4 L Monocytes % (1.7 - 9.3 %) 7.8 Eosinophils % (0 - 5 %) 0.1 Basophils % (0.0 - 2.0 %) 0.2 Absolute Granulocytes (1.4 - 6.5 /CUMM) 3.7 Absolute Lymphocytes (1.2 - 3.4 /CUMM) 0.6 L Absolute Monocytes (0.10 - 0.60 /CUMM) 0.4 Absolute Eosinophils (0.0 - 0.7 /CUMM) 0 Absolute Basophils (0.0 - 0.2 /CUMM) 0 11/21 11/21 1850 1759 Hematology CBC w Diff NO MAN DIFF REQ WBC (4.8 - 10.8 /CUMM) 3.5 L RBC (4.70 - 6.10 /CUMM) 2.81 L Hgb (14.0 - 18.0 G/DL) 9.0 L Hct (42 - 52 %) 26.8 L MCV (80.0 - 94.0 FL) 95.5 H MCH (27.0 - 31.0 PG) 32.0 H MCHC (33.0 - 37.0 G/DL) 33.5 RDW (11.5 - 14.5 %) 19.0 H Plt Count (130 - 400 /CUMM) 140 MPV (7.4 - 10.4 FL) 8.1 Gran % (42.2 - 75.2 %) 78.1 H Lymphocytes % (20.5 - 51.1 %) 11.6 L Monocytes % (1.7 - 9.3 %) 9.6 H Eosinophils % (0 - 5 %) 0.4 Basophils % (0.0 - 2.0 %) 0.3 Absolute Granulocytes (1.4 - 6.5 /CUMM) 2.7 Absolute Lymphocytes (1.2 - 3.4 /CUMM) 0.4 L Absolute Monocytes (0.10 - 0.60 /CUMM) 0.3 Absolute Eosinophils (0.0 - 0.7 /CUMM) 0 Absolute Basophils (0.0 - 0.2 /CUMM) 0 Misc Hematology Test (%) Other Body Source Fluid WBC (0 - 5 /CUMM) 9 H Fld Total RBCs Counted (0 /CUMM) 4 H 11/21 1216 Hematology CBC w Diff NO MAN DIFF REQ WBC (4.8 - 10.8 /CUMM) 4.2 L RBC (4.70 - 6.10 /CUMM) 2.44 L Hgb (14.0 - 18.0 G/DL) 7.9 L Hct (42 - 52 %) 23.2 L MCV (80.0 - 94.0 FL) 95.1 H MCH (27.0 - 31.0 PG) 32.5 H MCHC (33.0 - 37.0 G/DL) 34.2 RDW (11.5 - 14.5 %) 18.9 H Plt Count (130 - 400 /CUMM) 133 MPV (7.4 - 10.4 FL) 8.2 Gran % (42.2 - 75.2 %) 75.5 H Lymphocytes % (20.5 - 51.1 %) 14.0 L Monocytes % (1.7 - 9.3 %) 9.8 H Eosinophils % (0 - 5 %) 0.3 Basophils % (0.0 - 2.0 %) 0.4 Absolute Granulocytes (1.4 - 6.5 /CUMM) 3.1 Absolute Lymphocytes (1.2 - 3.4 /CUMM) 0.6 L Absolute Monocytes (0.10 - 0.60 /CUMM) 0.4 Absolute Eosinophils (0.0 - 0.7 /CUMM) 0 Absolute Basophils (0.0 - 0.2 /CUMM) 0
--- NOTE | 2017-11-22 09:55 | PN- Cardiology ---
Subjective Subjective: The patient is awake, alert Telemetry demonstrates continued paroxysms of atrial fibrillation (patient was asymptomatic). The events of the last 24 hours as well as telemetry were reviewed. Review of Systems: The review of systems is negative for chest pains, palpitations nor lightheadedness. The remainder of the 14 point review of systems is noncontributory with the exception of above. Objective Vital Signs and I&Os Vital Signs Date Time Temp Pulse Resp B/P B/P Pulse O2 O2 Flow FiO2 Mean Ox Delivery Rate 11/23 799 98.8 101 30 88/50 95 Nasal 4.0L Cannula 11/22 0543 94 Nasal 4.0L Cannula 11/22 0514 99.6 11/21 2354 101.4 11/21 2319 94 Nasal 4.0L Cannula 11/216 93 Nasal 4.0L Cannula 11/21 2019 95 Nasal 4.0L Cannula 11/21 1600 100.4 107 28 88/60 93 Nasal 4.0L Cannula 11/21 1553 95 Nasal 4.0L Cannula 11/21 1453 Nasal 4.0L Cannula 11/21 1200 92 Nasal 4.0L Cannula Intake & Output 11/22 1600 11/22 0800 11/22 0000 11/21 1600 11/21 0800 11/21 0000 Intake Total 915 679 6570 200 Output Total 0 2700 3200 Balance 650 -1770 -590 200 Intake, Blood 400 Product Intake, 2300 Dialysate Intake, IV 250 30 250 Intake, Oral 400 500 60 200 Number 0 Bowel Movements Output, 0 2700 3200 Dialysate Patient 144 lb 146 lb 144 lb Weight Weight Bed scale Bed scale Measurement Method Physical Exam: General: Nontoxic, no apparent distress. HEENT: Sclera and conjunctiva within normal limits, without xanthelasmas. Neck: Carotids 2+ without bruits. Respiratory: Scattered rhonchi and rales, air movement is decreased at bases, without accessory respiratory muscle use. Heart: Regular rate and rhythm, without murmurs, without JVD. Abdomen: Soft, nontender, no masses, normoactive bowel sounds. Extremities: Without clubbing, cyanosis, without edema. Neuro: Nonfocal exam, strength, 5 out of 5 Skin: Within normal limits without lesions. Psych: Mood and affect: Normal Current Medications: Current Medications Sig/Christie Start time Last Medication Dose Route Stop Time Status Admin Acetaminophen 650 MG .STK-MED ONE 11/218 DC PO 11/21 2349 Acetaminophen 650 MG Q6P PRN 11/20 2130 AC 11/21 PO 2354 Acetaminophen 1,000 MG Q6P PRN 11/20 2130 AC IV Acyclovir 200 MG DAILY 11/21 899 AC 11/22 PO 0854 Albuterol Sulfate 3 ML BID 11/21 1156 AC 11/21 INH 2024 Azithromycin 500 MG 1600 11/22 1600 AC Sodium Chloride 250 ML IV Azithromycin 500 MG ONCE ONE 11/21 1500 DC 11/21 Sodium Chloride 250 ML IV 11/21 1559 1618 Ceftazidime 1,000 MG DAILY 11/21 899 AC 11/22 IV 0854 Epoetin Elvin 10,000 UNITS QWED 11/22 899 AC 11/22 SC 0854 Guaifenesin 600 MG Q12 11/20 2309 AC 11/22 PO 0854 Ipratropium [place] 2.5 ML BID 11/21 1156 AC 11/21 INH 2024 Magnesium Oxide 400 MG DAILY 11/21 899 AC 11/22 PO 0854 Midodrine 7.5 MG ONCE ONE 11/22 0430 DC 11/22 PO 11/22 0531 0613 Midodrine 7.5 MG 0800,1200,1600 11/21 0230 AC 11/22 PO 0816 Oxycodone HCl 10 MG Q6 PRN 11/21 0015 AC PO Sevelamer Carbonate 3,200 MG WM 11/21 0800 AC 11/22 PO 0816 Sevelamer Carbonate 1,600 MG TID PRN 11/21 0015 AC PO Sodium Chloride 500 ML BOLUS ONE 11/22 529 DC 11/22 IV 11/22 0629 0526 Sodium Chloride 250 ML BOLUS ONE 11/22 0515 CAN IV 11/22 0614 Sodium Chloride 250 ML BOLUS ONE 11/22 0415 DC 11/22 IV 11/22 0514 0526 Results Last 48 Hrs of Labs/Mics: Laboratory Tests 11/22/17 0515: Renin Pending 11/22/17 0430: Aldosterone Cancelled, CBC w Diff NO MAN DIFF REQ, RBC 2.52 L, MCV 96.3 H, MCH 31.9 H, MCHC 33.1, RDW 19.3 H, MPV 8.1, Gran % 79.5 H, Lymphocytes % 12.4 L, Monocytes % 7.8, Eosinophils % 0.1, Basophils % 0.2, Absolute Granulocytes 3.7, Absolute Lymphocytes 0.6 L, Absolute Monocytes 0.4, Absolute Eosinophils 0, Absolute Basophils 0 11/22/17 0425: Anion Gap 15, Estimated GFR 5 L, Glucose 101 H, Calcium 8.1 L, Phosphorus 6.3 H, Magnesium 1.6, Total Bilirubin 0.8, AST 9 L, ALT 13 L, Albumin 2.7 L, Cortisol AM Sample 20.9 11/21/17 1850: [facility] [place] [facility] Test , Fluid WBC 9 H, Fld Total RBCs Counted 4 H 11/21/17 1759: CBC w Diff NO MAN DIFF REQ, RBC 2.81 L, MCV 95.5 H, MCH 32.0 H, MCHC 33.5, RDW 19.0 H, MPV 8.1, Gran % 78.1 H, Lymphocytes % 11.6 L, Monocytes % 9.6 H, Eosinophils % 0.4, Basophils % 0.3, Absolute Granulocytes 2.7, Absolute Lymphocytes 0.4 L, Absolute Monocytes 0.3, Absolute Eosinophils 0, Absolute Basophils 0 11/21/17 1216: CBC w Diff NO MAN DIFF REQ, RBC 2.44 L, MCV 95.1 H, MCH 32.5 H, MCHC 34.2, RDW 18.9 H, MPV 8.2, Gran % 75.5 H, Lymphocytes % 14.0 L, Monocytes % 9.8 H, Eosinophils % 0.3, Basophils % 0.4, Absolute Granulocytes 3.1, Absolute Lymphocytes 0.6 L, Absolute Monocytes 0.4, Absolute Eosinophils 0, Absolute Basophils 0 11/21/17 0600: Troponin I Cancelled 11/21/17 0555: CBC w Diff NO MAN DIFF REQ, RBC 2.23 L, MCV 97.6 H, MCH 32.3 H, MCHC 33.1, RDW 18.1 H, MPV 7.6, Gran % 73.5, Lymphocytes % 12.9 L, Monocytes % 13.0 H, Eosinophils % 0.4, Basophils % 0.2, Absolute Granulocytes 2.9, Absolute Lymphocytes 0.5 L, Absolute Monocytes 0.5, Absolute Eosinophils 0, Absolute Basophils 0 11/21/17 0505: Anion Gap 14, Estimated GFR 4 L, BUN/Creatinine Ratio 4.7 L, Troponin I 0.08, CBC w Diff NO MAN DIFF REQ, RBC 2.26 L, MCV 97.5 H, MCH 32.1 H, MCHC 33.0, RDW 18.3 H, MPV 7.7, Gran % 74.7, Lymphocytes % 13.7 L, Monocytes % 11.1 H, Eosinophils % 0.3, Basophils % 0.2, Absolute Granulocytes 3.0, Absolute Lymphocytes 0.5 L, Absolute Monocytes 0.4, Absolute Eosinophils 0, Absolute Basophils 0 11/20/17 2330: Troponin I 0.06 11/20/17 1554: Anion Gap 16, Estimated GFR 5 L, BUN/Creatinine Ratio 5.0 L, Glucose 101 H, Lactic Acid 1.8, Calcium 8.5, Phosphorus 6.8 H, Magnesium 1.5 L, Total Bilirubin 0.9, AST 12 L, ALT 18 L, Alkaline Phosphatase 72, Troponin I 0.07, [id number] Pept 53756 H, Total Protein 7.1, Albumin 3.2 L, Globulin 3.9 , Albumin/Globulin Ratio 0.8 L, Cortisol PM Sample 31.8 H 11/20/17 1510: PT 12.4, INR 1.14, APTT 25, CBC w Diff NO MAN DIFF REQ, RBC 2.78 L, MCV 97.6 H , MCH 32.1 H, MCHC 32.9 L, RDW 18.6 H, MPV 7.7, Gran % 72.1, Lymphocytes % 14.6 L, Monocytes % 11.2 H, Eosinophils % 0.3, Basophils % 1.8, Absolute Granulocytes 3.5, Absolute Lymphocytes 0.7 L, Absolute Monocytes 0.5, Absolute Eosinophils 0, Absolute Basophils 0.1 11/20/17 1507: Urine Color Cancelled, Urine Clarity Cancelled, Urine pH Cancelled, Ur Specific State Road Cancelled, Urine Protein Cancelled, Urine Ketones Cancelled, Urine Nitrite Cancelled, Urine Bilirubin Cancelled, Urine Urobilinogen Cancelled, Ur Leukocyte Esterase Cancelled, Ur Microscopic Cancelled, Urine Hemoglobin Cancelled, Urine Glucose Cancelled Microbiology 11/21 0105 NASOPHARYN: Influenza Virus A & B Rapid Smear - COMP 11/21 9 UPPER RESP: Surveillance Culture - COMP 11/21 9 GI: Surveillance Culture - COMP Assessment/Plan Assessment/Plan #1. Paroxysmal atrial fibrillation not on anticoagulation secondary to anemia #2. Cough most likely secondary to bronchitis versus pneumonia. #3. Elevated BNP secondary to end-stage renal disease. There is no evidence of acute CHF #4. Hypotension (chronic). This may be exacerbated by possible infection #5. Multiple myeloma with chronic anemia #6. Chronic back pain Atrial fibrillation: The patient has long-standing paroxysmal atrial fibrillation and is currently not anticoagulated secondary to anemia, in the setting of multiple myeloma and end-stage renal disease on peritoneal dialysis. Given his hypotension, rate control with agent such as beta blockers or calcium channel blockers would be difficult, and due to his renal dysfunction, agent such as digoxin are suboptimal. As he is not anticoagulated, use of an agent such as amiodarone would as well not be optimal. We will further discuss potential implantation of a watchman device to mitigate stroke risk; however, this will require anticoagulation for a short course following implantation. As he is asymptomatic with his atrial fibrillation and has paroxysms are extremely limited, we will continue treating his underlying pneumonia which is likely saturating his overall atrial fibrillation burden. Continue telemetry? Yes
--- NOTE | 2017-11-22 10:14 | PN- CRCU ---
Subjective HPI/Critical Care Issues: Sleeping this am Yesterday's events reviewed, currently complaining of generalized weakness and cough 12 point review of systems otherwise unchanged Peritoneal dialysis ongoing Objective Current Medications: Current Medications Sig/Christie Start time Last Medication Dose Route Stop Time Status Admin Acetaminophen 650 MG .STK-MED ONE 11/21 2348 DC PO 11/21 2349 Acetaminophen 650 MG Q6P PRN 11/20 2130 AC 11/21 PO 2354 Acetaminophen 1,000 MG Q6P PRN 11/20 2130 AC IV Acyclovir 200 MG DAILY 11/21 899 AC 11/22 PO 0854 Albuterol Sulfate 3 ML BID 11/21 1156 AC 11/21 INH 2024 Azithromycin 500 MG 1600 11/22 1600 AC Sodium Chloride 250 ML IV Azithromycin 500 MG ONCE ONE 11/21 1500 DC 11/21 Sodium Chloride 250 ML IV 11/21 1559 1618 Ceftazidime 1,000 MG DAILY 11/21 899 AC 11/22 IV 0854 Epoetin Elvin 10,000 UNITS QWED 11/22 899 AC 11/22 SC 0854 Guaifenesin 600 MG Q12 11/20 2309 AC 11/22 PO 0854 Ipratropium [place] 2.5 ML BID 11/21 1156 AC 11/21 INH 2024 Magnesium Oxide 400 MG DAILY 11/21 899 AC 11/22 PO 0854 Midodrine 7.5 MG ONCE ONE 11/22 529 DC 11/22 PO 11/22 0531 0613 Midodrine 7.5 MG 0800,1200,1600 11/21 0230 AC 11/22 PO 0816 Oxycodone HCl 10 MG Q6 PRN 11/21 0015 AC PO Sevelamer Carbonate 3,200 MG WM 11/21 08 AC 11/22 PO 0816 Sevelamer Carbonate 1,600 MG TID PRN 11/21 0015 AC PO Sodium Chloride 500 ML BOLUS ONE 11/22 529 DC 11/22 IV 11/22 0629 0526 Sodium Chloride 250 ML BOLUS ONE 11/22 0415 CAN IV 11/22 0514 Sodium Chloride 250 ML BOLUS ONE 11/22 0415 DC 11/22 IV 11/22 0514 0526 Vital Signs & I&O Last 24 Hrs of Vitals and I&O: Vital Signs Date Time Temp Pulse Resp B/P B/P Pulse O2 O2 Flow FiO2 Mean Ox Delivery Rate 11/23 799 98.8 101 30 88/50 95 Nasal 4.0L Cannula 11/22 0543 94 Nasal 4.0L Cannula 11/22 0514 99.6 11/21 2354 101.4 11/21 2319 94 Nasal 4.0L Cannula 11/21 2026 93 Nasal 4.0L Cannula 11/21 2019 95 Nasal 4.0L Cannula 11/21 1600 100.4 107 28 88/60 93 Nasal 4.0L Cannula 11/21 1553 95 Nasal 4.0L Cannula 11/21 1453 Nasal 4.0L Cannula 11/21 1200 92 Nasal 4.0L Cannula Intake & Output 11/22 1600 11/22 0800 11/22 0000 Intake Total 650 Output Total 0 Balance 650 Intake, IV 250 Intake, Oral 400 Number 0 Bowel Movements Output, 0 Dialysate Impression/Plan Impression/Plan Impression/Plan: He is afebrile. Skin reveals no rash. HEENT exam is negative. Neck is supple with no adenopathy. Lungs diffuse bilateral rhonchi. Heart regular rhythm with a 2/6 systolic ejection murmur. Abdomen is soft, nontender with positive bowel sounds; Tenckhoff catheter in place with no inflammation at the site. Extremities no cyanosis, clubbing or edema; reducible right femoral hernia, with no tenderness on palpation. Neuro is without focality. dried blood at the urethral meatus. CT scan 1. There is increasing consolidation of the left lower lobe, now affecting nearly the entire lobe. Air bronchograms are present. Similar consolidation dependently in the right lower lobe. These findings could represent atelectasis or pneumonia. 2. Resolution of the anterior right upper lobe groundglass opacity. 3. Cholelithiasis. Increase in small volume ascites. Nephrolithiasis. This is a 67-year-old man with a history of multiple myeloma, treated with chemotherapy, including Decadron, Cybor d adn aranasep every other week, most recently 5 days prior to admission, with stable globulins and MRIs, end-stage renal disease, maintained on CCPD, hospitalized 1 month prior to admission with pneumococcal sepsis, Now admittedwith a persistent cough, increasing weakness and lethargy with poor p.o. intake and weight loss, found to be afebrile with hypotension, a normal white blood cell count and a left lower lobe density on chest x-ray. ISSUES * Sepsis with prob pna HCAP with LLL PNA ( recent strep pneumo sepsis * Advanced multiple myeloma with ongoing chemotherapy, seems to be relatively stable, hence immunosuppressed * Severe osteoporosis with myeloma involvement of the spine with chronic neck pain * Hypotension from sepsis which is slowly improving * Chronic hypotension due to end-stage renal disease and autonomic dysfunction on Midodrin * Chronic pain syndrome on oxycodone due to severe spine involvement * End-stage renal disease on peritoneal dialysis * Elevated BNP secondary to end-stage renal disease no clinical evidence suggestive of acute coronary syndrome * Chronic paroxysmal atrial fibrillation not on anticoagulation due to recent anemia PLAN/ Continue antibiotics per ID Continue Midodrin and dose may need to be increased Continue antiviral therapy as ordered Keep the head of bed elevated Attempt to get a sputum culture if able Watch blood work platelet count etc. Continue aggressive pulmonary toilet
--- NOTE | 2017-11-22 11:26 | PN- Infect Dx ---
Subjective Subjective: T-max 101.4. He does not report any complaints but remains confused. His cough persists but is nonproductive and he denies any chest pain. Objective Last 24 Hrs of Vital Signs/I&O Vital Signs Date Time Temp Pulse Resp B/P B/P Pulse O2 O2 Flow FiO2 Mean Ox Delivery Rate 11/23 799 98.8 101 30 88/50 95 Nasal 4.0L Cannula 11/22 0800 94 Nasal 4.0L Cannula 11/22 0543 94 Nasal 4.0L Cannula 11/22 0514 99.6 11/21 2354 101.4 11/21 2319 94 Nasal 4.0L Cannula 11/21 2026 93 Nasal 4.0L Cannula 11/21 2019 95 Nasal 4.0L Cannula 11/21 1600 100.4 107 28 88/60 93 Nasal 4.0L Cannula 11/21 1553 95 Nasal 4.0L Cannula 11/21 1453 Nasal 4.0L Cannula 11/21 1200 92 Nasal 4.0L Cannula Intake & Output 11/22 1600 11/22 0800 11/22 0000 Intake Total 650 Output Total 0 Balance 650 Intake, IV 250 Intake, Oral 400 Number 0 Bowel Movements Output, 0 Dialysate Physical Exam Other Physical Findings: He appears comfortable, confused, but in no acute distress Lungs bilateral rhonchi Heart regular rhythm with a 2/6 systolic ejection murmur Abdomen is soft, nontender with positive bowel sounds Extremities no cyanosis, clubbing or edema Results Last 24 Hours of Lab Results: Laboratory Tests 11/22 11/22 11/22 1022 0515 0430 Chemistry Renin Pending Aldosterone Pending Cancelled Hematology CBC w Diff NO MAN DIFF REQ WBC (4.8 - 10.8 /CUMM) 4.7 L RBC (4.70 - 6.10 /CUMM) 2.52 L Hgb (14.0 - 18.0 G/DL) 8.0 L Hct (42 - 52 %) 24.3 L MCV (80.0 - 94.0 FL) 96.3 H MCH (27.0 - 31.0 PG) 31.9 H MCHC (33.0 - 37.0 G/DL) 33.1 RDW (11.5 - 14.5 %) 19.3 H Plt Count (130 - 400 /CUMM) 118 L MPV (7.4 - 10.4 FL) 8.1 Gran % (42.2 - 75.2 %) 79.5 H Lymphocytes % (20.5 - 51.1 %) 12.4 L Monocytes % (1.7 - 9.3 %) 7.8 Eosinophils % (0 - 5 %) 0.1 Basophils % (0.0 - 2.0 %) 0.2 Absolute Granulocytes (1.4 - 6.5 /CUMM) 3.7 Absolute Lymphocytes (1.2 - 3.4 /CUMM) 0.6 L Absolute Monocytes (0.10 - 0.60 /CUMM) 0.4 Absolute Eosinophils (0.0 - 0.7 /CUMM) 0 Absolute Basophils (0.0 - 0.2 /CUMM) 0 11/22 11/21 11/21 0425 1850 1759 Chemistry Sodium (137 - 145 mmol/L) 138 Potassium (3.5 - 5.1 mmol/L) 3.5 Chloride (98 - 107 mmol/L) 96 L Carbon Dioxide (22 - 30 mmol/L) 27 Anion Gap (5 - 16) 15 BUN (9 - 20 mg/dL) 53 H Creatinine (0.7 - 1.2 mg/dL) 11.2 *H Estimated GFR (>60 ml/min) 5 L Glucose (65 - 99 mg/dL) 101 H Calcium (8.4 - 10.2 mg/dL) 8.1 L Phosphorus (2.5 - 4.5 mg/dL) 6.3 H Magnesium (1.6 - 2.3 mg/dL) 1.6 Total Bilirubin (0.2 - 1.3 mg/dL) 0.8 AST (17 - 59 U/L) 9 L ALT (21 - 72 U/L) 13 L Albumin (3.5 - 5.0 g/dL) 2.7 L Cortisol AM Sample (4.46 - 22.7 ug/dL) 20.9 Hematology CBC w Diff NO MAN DIFF REQ WBC (4.8 - 10.8 /CUMM) 3.5 L RBC (4.70 - 6.10 /CUMM) 2.81 L Hgb (14.0 - 18.0 G/DL) 9.0 L Hct (42 - 52 %) 26.8 L MCV (80.0 - 94.0 FL) 95.5 H MCH (27.0 - 31.0 PG) 32.0 H MCHC (33.0 - 37.0 G/DL) 33.5 RDW (11.5 - 14.5 %) 19.0 H Plt Count (130 - 400 /CUMM) 140 MPV (7.4 - 10.4 FL) 8.1 Gran % (42.2 - 75.2 %) 78.1 H Lymphocytes % (20.5 - 51.1 %) 11.6 L Monocytes % (1.7 - 9.3 %) 9.6 H Eosinophils % (0 - 5 %) 0.4 Basophils % (0.0 - 2.0 %) 0.3 Absolute Granulocytes (1.4 - 6.5 /CUMM) 2.7 Absolute Lymphocytes (1.2 - 3.4 /CUMM) 0.4 L Absolute Monocytes (0.10 - 0.60 /CUMM) 0.3 Absolute Eosinophils (0.0 - 0.7 /CUMM) 0 Absolute Basophils (0.0 - 0.2 /CUMM) 0 Misc Hematology Test (%) Other Body Source Fluid WBC (0 - 5 /CUMM) 9 H Fld Total RBCs Counted (0 /CUMM) 4 H 05/08 1216 Hematology CBC w Diff NO MAN DIFF REQ WBC (4.8 - 10.8 /CUMM) 4.2 L RBC (4.70 - 6.10 /CUMM) 2.44 L Hgb (14.0 - 18.0 G/DL) 7.9 L Hct (42 - 52 %) 23.2 L MCV (80.0 - 94.0 FL) 95.1 H MCH (27.0 - 31.0 PG) 32.5 H MCHC (33.0 - 37.0 G/DL) 34.2 RDW (11.5 - 14.5 %) 18.9 H Plt Count (130 - 400 /CUMM) 133 MPV (7.4 - 10.4 FL) 8.2 Gran % (42.2 - 75.2 %) 75.5 H Lymphocytes % (20.5 - 51.1 %) 14.0 L Monocytes % (1.7 - 9.3 %) 9.8 H Eosinophils % (0 - 5 %) 0.3 Basophils % (0.0 - 2.0 %) 0.4 Absolute Granulocytes (1.4 - 6.5 /CUMM) 3.1 Absolute Lymphocytes (1.2 - 3.4 /CUMM) 0.6 L Absolute Monocytes (0.10 - 0.60 /CUMM) 0.4 Absolute Eosinophils (0.0 - 0.7 /CUMM) 0 Absolute Basophils (0.0 - 0.2 /CUMM) 0 Last 24 Hours of [place] Results: Blood cultures 2 November 20 negative Dialysate fluid November 21 negative Recent Imaging Studies: CT of the chest November 21 reveals diffuse consolidation throughout a majority of the left lower lobe, with air bronchograms, with no associated pleural effusion; right lower lobe consolidation unchanged from the previous CT scan; resolution of the anterior right upper lobe groundglass opacity; cholelithiasis and nephrolithiasis; increase in small volume ascites Assessment/Plan ID Impression: Fevers, presumably secondary to the left lower lobe pneumonia seen on the chest x-ray and CT, with his white blood cell count normal, though this is not likely to be a useful parameter in this patient with multiple myeloma, now Day 2 of treatment with Azithromycin and Ceftazidime. His nares surveillance culture for MRSA is negative, making this pathogen less of a concern. His cortisol level is high, making adrenal insufficiency unlikely. Suggestion: 1. Attempt to obtain a sputum culture 2. Aggressive pulmonary toilet 3. Further management with regard to steroids per the ICU team 4. Continue Azithromycin and Ceftazidime
--- NOTE | 2017-11-22 14:36 | PN- Nephrology ---
Assessment/Plan Nephrology Assessment: Pneumonia on antibiotics. PD fluid clear. UF 300 cc/since change to 1.5%D (2L/ 24 hrs including 2.5%D) . Continue with 1.5%D Nasir Khalil MD Suggestion: . Subjective Subjective: Pt looks feels better. On antibiotics for pneumonia. Objective Vital Signs and I&Os M NAD 88/50 101 98.8 Lungs clear Cor RRR Abd soft Ext neg edema Results Pertinent Lab Results: . PD fluid cell count 9 WBC
[2017-11-22 16:00] VITALS: BP 102/60
[2017-11-23] VITALS: BP 92/60
[2017-11-23 05:46] LABS: ABSOLUTE BASOPHIL COUNT 0 /CUMM (0.0-0.2); ABSOLUTE EOSINOPHIL COUNT 0 /CUMM (0.0-0.7); ABSOLUTE GRANULOCYTE CT 4.9 /CUMM (1.4-6.5); ABSOLUTE LYMPH COUNT 0.7 /CUMM (1.2-3.4); ABSOLUTE MONOCYTE COUNT 0.4 /CUMM (0.10-0.60); BASOPHIL % 0.3 % (0.0-2.0); EOSINOPHIL % 0.2 % (0-5); GRANULOCYTE % 80.4 % (42.2-75.2); HEMATOCRIT 24.3 % (42-52); MEAN PLATELET VOLUME 7.9 FL (7.4-10.4); PLATELET COUNT 132 /CUMM (130-400); RBC DISTRIBUTION WIDTH 19.3 % (11.5-14.5); WHITE BLOOD CELL COUNT 6.1 /CUMM (4.8-10.8)
--- NOTE | 2017-11-23 06:35 | PN- Hematology ---
Subjective Subjective: Offers no specific new complaints, off point review of systems is unchanged Objective Vital Signs and I&Os Vital Signs Date Time Temp Pulse Resp B/P B/P Pulse O2 O2 Flow FiO2 Mean Ox Delivery Rate 11/23 0400 98 Nasal 2.0L Cannula 11/23 0000 98.0 86 24 92/60 96 Nasal 2.0L Cannula 11/23 0000 97 Nasal 2.0L Cannula 11/22 2000 98 Nasal 2.0L Cannula 11/22 1600 98.8 90 23 102/60 97 Nasal 4.0L Cannula 11/22 1200 94 Nasal 4.0L Cannula 11/22 1155 94 Nasal 4.0L Cannula 11/22 0800 98.8 101 30 88/50 95 Nasal 4.0L Cannula 11/22 08 94 Nasal 4.0L Cannula Intake & Output 11/23 0811/23 0000 11/22 1600 11/22 0800 11/22 0000 11/21 1600 Intake Total 560 360 650 930 Output Total 0 200 0 3200 Balance 560 160 650 -2270 Intake, Blood 400 Product Intake, IV 250 30 250 30 Intake, Oral 310 330 400 500 Number 0 0 0 Bowel Movements Output, 0 200 0 3200 Dialysate Output, Urine 0 Patient 144 lb Weight Weight Bed scale Measurement Method Gen.: in NAD ENT: Sclera anicteric Chest: Normal respiratory effort, decreased breath sounds Cor: RRR, no extra sounds Abdomen: Soft, bowel sounds present, no tenderness, Extremities: Without clubbing, cyanosis, or asymmetric edema Neurology: Alert and oriented 3, no gross deficit Current Medications: Current Medications Sig/Christie Start time Last Medication Dose Route Stop Time Status Admin Acetaminophen 650 MG Q6P PRN 11/20 2130 AC 11/21 PO 2354 Acetaminophen 1,000 MG Q6P PRN 11/20 213 AC IV Acyclovir 200 MG DAILY 11/21 899 AC 11/22 PO 0854 Albuterol Sulfate 3 ML BID 11/21 1156 AC 11/22 INH 2049 Alprazolam 0.25 MG ONCE ONE 11/23 0430 DC 11/23 PO 11/23 0431 0434 Azithromycin 500 MG 1600 11/22 1600 AC 11/22 Sodium Chloride 250 ML IV 1554 Ceftazidime 1,000 MG DAILY 11/21 899 AC 11/22 IV 0854 Docusate Sodium 100 MG DAILY 11/22 1113 AC 11/22 PO 1204 Epoetin Elvin 10,000 UNITS QWED 11/22 899 AC 11/22 SC 0854 Guaifenesin 600 MG Q12 11/20 2309 AC 11/22 PO 2125 Ipratropium [place] 2.5 ML BID 11/21 1156 AC 11/22 INH 2049 Magnesium Oxide 400 MG DAILY 11/21 899 AC 11/22 PO 0854 Midodrine 7.5 MG 0800,1200,1600 11/21 0230 AC 11/22 PO 1554 Oxycodone HCl 10 MG Q6 PRN 11/21 0015 AC PO Senna 187 MG AT BEDTIME 11/22 2100 AC 11/22 PO 2124 Sevelamer Carbonate 3,200 MG WM 11/22 799 AC 11/22 PO 1701 Sevelamer Carbonate 1,600 MG TID PRN 11/21 001 AC PO Results Last 24 Hours of Lab Results: Laboratory Tests 11/23 11/22 0448 1022 Chemistry Sodium (137 - 145 mmol/L) 138 Potassium (3.5 - 5.1 mmol/L) 3.3 L Chloride (98 - 107 mmol/L) 98 Carbon Dioxide (22 - 30 mmol/L) 27 Anion Gap (5 - 16) 14 BUN (9 - 20 mg/dL) 47 H Creatinine (0.7 - 1.2 mg/dL) 10.8 *H Estimated GFR (>60 ml/min) 5 L Glucose (65 - 99 mg/dL) 84 Calcium (8.4 - 10.2 mg/dL) 7.7 L Phosphorus (2.5 - 4.5 mg/dL) 6.5 H Magnesium (1.6 - 2.3 mg/dL) 1.6 Total Bilirubin (0.2 - 1.3 mg/dL) 0.6 AST (17 - 59 U/L) 9 L ALT (21 - 72 U/L) 10 L Albumin (3.5 - 5.0 g/dL) 2.4 L Aldosterone Pending Hematology CBC w Diff NO MAN DIFF REQ WBC (4.8 - 10.8 /CUMM) 6.1 RBC (4.70 - 6.10 /CUMM) 2.50 L Hgb (14.0 - 18.0 G/DL) 7.8 L Hct (42 - 52 %) 24.3 L MCV (80.0 - 94.0 FL) 97.0 H MCH (27.0 - 31.0 PG) 31.0 MCHC (33.0 - 37.0 G/DL) 32.0 L RDW (11.5 - 14.5 %) 19.3 H Plt Count (130 - 400 /CUMM) 132 MPV (7.4 - 10.4 FL) 7.9 Gran % (42.2 - 75.2 %) 80.4 H Lymphocytes % (20.5 - 51.1 %) 11.8 L Monocytes % (1.7 - 9.3 %) 7.3 Eosinophils % (0 - 5 %) 0.2 Basophils % (0.0 - 2.0 %) 0.3 Absolute Granulocytes (1.4 - 6.5 /CUMM) 4.9 Absolute Lymphocytes (1.2 - 3.4 /CUMM) 0.7 L Absolute Monocytes (0.10 - 0.60 /CUMM) 0.4 Absolute Eosinophils (0.0 - 0.7 /CUMM) 0 Absolute Basophils (0.0 - 0.2 /CUMM) 0 Cultures-remain negative Assessment/Plan Hematology Assessment/Recommendations: 1. presumed pneumonia-patient on antibiotics 2. Multiple myeloma-chemotherapy on hold, transfuse as outlined
--- NOTE | 2017-11-23 07:46 | PN- Resident CRCU ---
Subjective HPI/CRCU Issues: Patient reports feeling anxious. Was given 0.25 mg of Xanax which helped him sleep for an hour. Patient had some swallowing issues this morning while eating. Will obtain swallow eval. Seen by cardiology today who recommended to start metoprolol 25 twice a day. Objective Vital Signs & I&O Last 8 Hrs of Vitals and I&O: Laboratory Tests 11/23 0448 Chemistry Sodium (137 - 145 mmol/L) 138 Potassium (3.5 - 5.1 mmol/L) 3.3 L Chloride (98 - 107 mmol/L) 98 Carbon Dioxide (22 - 30 mmol/L) 27 Anion Gap (5 - 16) 14 BUN (9 - 20 mg/dL) 47 H Creatinine (0.7 - 1.2 mg/dL) 10.8 *H Estimated GFR (>60 ml/min) 5 L Glucose (65 - 99 mg/dL) 84 Calcium (8.4 - 10.2 mg/dL) 7.7 L Phosphorus (2.5 - 4.5 mg/dL) 6.5 H Magnesium (1.6 - 2.3 mg/dL) 1.6 Total Bilirubin (0.2 - 1.3 mg/dL) 0.6 AST (17 - 59 U/L) 9 L ALT (21 - 72 U/L) 10 L Albumin (3.5 - 5.0 g/dL) 2.4 L Hematology CBC w Diff NO MAN DIFF REQ WBC (4.8 - 10.8 /CUMM) 6.1 RBC (4.70 - 6.10 /CUMM) 2.50 L Hgb (14.0 - 18.0 G/DL) 7.8 L Hct (42 - 52 %) 24.3 L MCV (80.0 - 94.0 FL) 97.0 H MCH (27.0 - 31.0 PG) 31.0 MCHC (33.0 - 37.0 G/DL) 32.0 L RDW (11.5 - 14.5 %) 19.3 H Plt Count (130 - 400 /CUMM) 132 MPV (7.4 - 10.4 FL) 7.9 Gran % (42.2 - 75.2 %) 80.4 H Lymphocytes % (20.5 - 51.1 %) 11.8 L Monocytes % (1.7 - 9.3 %) 7.3 Eosinophils % (0 - 5 %) 0.2 Basophils % (0.0 - 2.0 %) 0.3 Absolute Granulocytes (1.4 - 6.5 /CUMM) 4.9 Absolute Lymphocytes (1.2 - 3.4 /CUMM) 0.7 L Absolute Monocytes (0.10 - 0.60 /CUMM) 0.4 Absolute Eosinophils (0.0 - 0.7 /CUMM) 0 Absolute Basophils (0.0 - 0.2 /CUMM) 0 Vital Signs Date Time Temp Pulse Resp B/P B/P Pulse O2 O2 Flow FiO2 Mean Ox Delivery Rate 11/23 1200 96 Room Air Room Air 11/23 0800 96 Room Air Room Air 11/23 0800 98.3 90 20 112/80 96 Room Air Room Air 11/23 0400 98 Nasal 2.0L Cannula 11/23 0000 98.0 86 24 92/60 96 Nasal 2.0L Cannula 11/23 0000 97 Nasal 2.0L Cannula 11/22 2000 98 Nasal 2.0L Cannula 11/22 1600 98.8 90 23 102/60 97 Nasal 4.0L Cannula Intake & Output 11/23 1600 11/23 0800 11/23 0000 Intake Total 50 560 Output Total 200 0 Balance -150 560 Intake, IV 0 250 Intake, Oral 50 310 Number 0 0 Bowel Movements Output, 200 0 Dialysate Output, Urine 0 0 Patient 139 lb Weight Weight Bed scale Measurement Method Exam General Appearance: no apparent distress, alert, awake, states feeling anxious Respiratory: left basilar crackers. Right coarse lung sounds. Cardiovascular: regular rate/rhythm Gastrointestinal: normal bowel sounds, soft, non-tender, peritoneal dialysis catheter taped Extremities: 1+ radial pulses Current Medications: Current Medications Sig/Christie Start time Last Medication Dose Route Stop Time Status Admin Acetaminophen 650 MG Q6P PRN 11/20 2130 AC 11/21 PO 2354 Acetaminophen 1,000 MG Q6P PRN 11/20 2130 AC IV Acyclovir 200 MG DAILY 11/21 09 AC 11/23 PO 1014 Albuterol Sulfate 3 ML BID 11/21 1156 AC 11/23 INH 0927 Alprazolam 0.25 MG ONCE ONE 11/23 0430 DC 11/23 PO 11/23 0431 0434 Azithromycin 500 MG 1600 11/22 1600 AC 11/22 Sodium Chloride 250 ML IV 1554 Bisacodyl 10 MG ONCE ONE 11/23 1145 DC 11/23 AL 11/23 1146 1225 Ceftazidime 1,000 MG DAILY 11/21 09 AC 11/23 IV 1025 Docusate Sodium 100 MG DAILY 11/22 1113 AC 11/23 PO 1014 Epoetin Elvin 10,000 UNITS QWED 11/22 899 AC 11/22 SC 0854 Guaifenesin 600 MG Q12 11/20 2309 AC 11/23 PO 1014 Ipratropium [place] 2.5 ML BID 11/21 1156 AC 11/23 INH 0927 Magnesium Oxide 400 MG DAILY 11/21 09 AC 11/23 PO 1025 Metoprolol Tartrate 12.5 MG BID 11/23 2100 AC PO Metoprolol Tartrate 25 MG BID 11/23 1030 DC PO Midodrine 7.5 MG 0800,1200,1600 11/21 0230 AC 11/23 PO 1232 Oxycodone HCl 10 MG Q6 PRN 11/21 0015 AC PO Potassium Chloride 40 MEQ ONCE ONE 11/23 1015 DC 11/23 PO 11/23 1016 1025 Senna 187 MG AT BEDTIME 11/22 2100 AC 11/22 PO 2124 Sevelamer Carbonate 3,200 MG WM 11/21 0800 AC 11/23 PO 1233 Sevelamer Carbonate 1,600 MG TID PRN 11/21 0015 AC PO Impression/Plan Impression/Problem List Impression: A: 67-year-old male with past medical history of multiple myeloma currently on chemotherapy (last on November 15) and dexamethasone, end-stage renal disease on peritoneal dialysis, atrial fibrillation not on anticoagulation, hypertension, chronic back pain, osteoporosis and 10 for persistent cough in the setting of due to strep pneumo, hypertension, and elevated proBNP. Problem list: Respiratory #Persistent cough with recent admission for sepsis 2/ to strep pneumo Chest Ct reveals increasing consolidation of the left lower lobe, now affecting nearly the entire lobe. Air bronchograms are present. Similar consolidation dependently in the right lower lobe. Rapid flu was negative. Current diasylate cultures negative. Nares surveillance negative for MRSA. Stool surveillance negative for VRE. Blood cultures curently negative. -cont ceftaz,azithro -f/u pancx and cx/cell count of dialysylate fluid. attempt to obtain LRC. cultures currently NEGATIVE -cont trc nebs, pulm toilet -f/u ID recs Infection #Shingles ppx -cont acyclovir Cardiac #Hypotension Possible due to anemia/sepsis. Trops and EKG negative for ACS Random cortisol elevated but AM cortisol normal. Endo does not think the patient has adrenal insufficency. Received 250 and 500ml bolus to improve BP. -f/u plasma renin and aldoslterone -cont midodrine. may need to increase -f/u endo recs #[place] in the setting of hx of A. fib currently not on any anticoagulation Possibly 2/2 to anemia. He is NOT anticoagulated as he is anemic and a hx of MM and ESRD. Beta blockers and CCB are not a good option given his hypotension. Digoxin is not given at this time due to renal dysfuction. Amiodarone is not optimal as he has not anticoagulated. His HR has improved as the infection is being treated. -cardiology recommneded metorpolol 25BID BUT will give 12.5mg BID trial given borderline bp -Cardiology will discuss potential watchman device -continue treating pna which is contributing to his afib #Elevated proBNP with no signs of chf/fluid overload ProBNP 65554 Last echo October lvef 65-70% -unclear cause. possible due to fluids received. most likely due to ESRD. Heme onc #Anemia Transfused 1 unit during admission as hemoglobin dropped from 8.9 to 7.3 Posttransfusion H/H 7.9/23.2 Current h/h 7.8/24.3 -current h/h borderline for transfusion. patient has no signs of bleeding. will hold off for transfusion for now. -stool guaiac prn -cont epogen 10k units weekly per nephro #hx of Multiple myeloma on chemo and dexamethason [id number] -cont heme onc recs Metabolic #ESRD -cont peritoneal dialysis per nephro -cont sevelamer #electrolyte abnormallities Monitoring low k+, mag, phos, and calcium -replenish per nephrology -regular diet to maintain K+ Alimentary #choking episode Patient had trouble swallowing food this AM. Normal swallow eval -cont to monitor #abd hernia Seen by surgery who stated that it was an asymptomatic right inguinal hernia filled with peritoneal dialysate. There is no bowel in the hernia defect. -Recommend repair of his inguinal hernia after he has recovered sufficiently from his pulmonary infection. #consitpation -Start colace and senna. will give dulcolax suppository. #cholelithiasis CT found cholithiasis -cont to monitor as patient has no symptoms #Penile bloody spotting CT found b/l nephrolithiasis -consider urology consult -cont to monitor Neuro #anxiety Patient reports anxiety in ICU. has noted that as the patient has improved he has become more anxious. Most likely due to hospital setting and low interaction. Patient was given Xanax 0.25 mg X1 overnight with minimal effect. -Monitor patient after he is transferred to general medicine. House keepting -FULL CODE -regular diet -DVT ppx - ALPS for anemia Problem List: 1. Pneumonia 2. Anemia 3. Hernia 4. Tachycardia 5. Hypotension 6. History of multiple myeloma 7. History of renal failure 8. Anxiety Pain Ratin Pain Location: abd cramp Tomorrow's Labs & Rationales: cbc bep mg phos calcium Plan DVT/Prophylaxis: alps due to anemia
[2017-11-23 08:00] VITALS: BP 112/80
--- NOTE | 2017-11-23 10:05 | PN- Cardiology ---
Subjective Subjective: Telemetry reviewed. Sinus rhythm with PVCs. Patient appears comfortable. Objective Vital Signs and I&Os Vital Signs Date Time Temp Pulse Resp B/P B/P Pulse O2 O2 Flow FiO2 Mean Ox Delivery Rate 11/23 0400 98 Nasal 2.0L Cannula 11/23 0000 98.0 86 24 92/60 96 Nasal 2.0L Cannula 11/23 0000 97 Nasal 2.0L Cannula 11/22 2000 98 Nasal 2.0L Cannula 11/22 1600 98.8 90 23 102/60 97 Nasal 4.0L Cannula 11/22 1200 94 Nasal 4.0L Cannula 11/22 1155 94 Nasal 4.0L Cannula Intake & Output 11/23 1600 11/23 0800 11/23 0000 11/22 1600 11/22 0800 11/22 0000 Intake Total 50 560 360 650 Output Total 200 0 200 0 Balance -150 560 160 650 Intake, IV 0 250 30 250 Intake, Oral 50 310 330 400 Number 0 0 0 0 Bowel Movements Output, 200 0 200 0 Dialysate Output, Urine 0 0 Patient 139 lb Weight Weight Bed scale Measurement Method Physical Exam: On general exam patient appeared comfortable resting. Head normocephalic atraumatic Eyes sclera anicteric conjunctiva showed no pallor extraocular muscles were normal Neck no jugular venous distention no thyroid masses no palpable nodes Chest lungs were clear Heart regular rhythm with a 1/6 systolic murmur Abdomen soft no organomegaly bowel sounds normal Extremities no clubbing cyanosis or edema Neurological no gross motor or sensory deficits Current Medications: Current Medications Sig/Christie Start time Last Medication Dose Route Stop Time Status Admin Acetaminophen 650 MG Q6P PRN 11/200 AC 11/21 PO 2354 Acetaminophen 1,000 MG Q6P PRN 11/20 2130 AC IV Acyclovir 200 MG DAILY 11/21 899 AC 11/22 PO 0854 Albuterol Sulfate 3 ML BID 11/21 1156 AC 11/23 INH 0927 Alprazolam 0.25 MG ONCE ONE 11/23 043 DC 11/23 PO 11/23 043 0434 Azithromycin 500 MG 1600 11/22 1600 AC 11/22 Sodium Chloride 250 ML IV 1554 Ceftazidime 1,000 MG DAILY 11/21 899 AC 11/22 IV 0854 Docusate Sodium 100 MG DAILY 11/22 1113 AC 11/22 PO 1204 Epoetin Elvin 10,000 UNITS QWED 11/22 899 11/22 SC 0854 Guaifenesin 600 MG Q12 11/20 2309 AC 11/22 PO 2125 Ipratropium [place] 2.5 ML BID 11/21 1156 AC 11/23 INH 09 Magnesium Oxide 400 MG DAILY 11/21 899 AC 11/22 PO 0854 Midodrine 7.5 MG 0800,1200,1600 11/21 0230 AC 11/22 PO 1554 Oxycodone HCl 10 MG Q6 PRN 11/21 001 PO Senna 187 MG AT BEDTIME 11/22 2100 AC 11/22 PO 2124 Sevelamer Carbonate 3,200 MG WM 11/22 799 AC 11/22 PO 1701 Sevelamer Carbonate 1,600 MG TID PRN 11/21 14 PO Results Last 48 Hrs of Labs/Mics: Laboratory Tests 11/23/17 0448: Anion Gap 14, Estimated GFR 5 L, Glucose 84, Calcium 7.7 L, Phosphorus 6.5 H, Magnesium 1.6, Total Bilirubin 0.6, AST 9 L, ALT 10 L, Albumin 2.4 L, CBC w Diff NO MAN DIFF REQ, RBC 2.50 L, MCV 97.0 H, MCH 31.0, MCHC 32.0 L, RDW 19.3 H, MPV 7.9, Gran % 80.4 H, Lymphocytes % 11.8 L, Monocytes % 7.3, Eosinophils % 0.2, Basophils % 0.3, Absolute Granulocytes 4.9, Absolute Lymphocytes 0.7 L, Absolute Monocytes 0.4, Absolute Eosinophils 0, Absolute Basophils 0 11/22/17 1022: Aldosterone Pending 11/22/17 0600: Cortisol AM Sample Cancelled 11/22/17 0515: Renin Pending 11/22/17 0430: Aldosterone Cancelled, CBC w Diff NO MAN DIFF REQ, RBC 2.52 L, MCV 96.3 H, MCH 31.9 H, MCHC 33.1, RDW 19.3 H, MPV 8.1, Gran % 79.5 H, Lymphocytes % 12.4 L, Monocytes % 7.8, Eosinophils % 0.1, Basophils % 0.2, Absolute Granulocytes 3.7, Absolute Lymphocytes 0.6 L, Absolute Monocytes 0.4, Absolute Eosinophils 0, Absolute Basophils 0 11/22/17 0425: Anion Gap 15, Estimated GFR 5 L, Glucose 101 H, Calcium 8.1 L, Phosphorus 6.3 H, Magnesium 1.6, Total Bilirubin 0.8, AST 9 L, ALT 13 L, Albumin 2.7 L, Cortisol AM Sample 20.9 11/21/17 1850: [facility] [place] [facility] Test , Fluid WBC 9 H, Fld Total RBCs Counted 4 H 11/21/17 1759: CBC w Diff NO MAN DIFF REQ, RBC 2.81 L, MCV 95.5 H, MCH 32.0 H, MCHC 33.5, RDW 19.0 H, MPV 8.1, Gran % 78.1 H, Lymphocytes % 11.6 L, Monocytes % 9.6 H, Eosinophils % 0.4, Basophils % 0.3, Absolute Granulocytes 2.7, Absolute Lymphocytes 0.4 L, Absolute Monocytes 0.3, Absolute Eosinophils 0, Absolute Basophils 0 11/21/17 1216: CBC w Diff NO MAN DIFF REQ, RBC 2.44 L, MCV 95.1 H, MCH 32.5 H, MCHC 34.2, RDW 18.9 H, MPV 8.2, Gran % 75.5 H, Lymphocytes % 14.0 L, Monocytes % 9.8 H, Eosinophils % 0.3, Basophils % 0.4, Absolute Granulocytes 3.1, Absolute Lymphocytes 0.6 L, Absolute Monocytes 0.4, Absolute Eosinophils 0, Absolute Basophils 0 Assessment/Plan Assessment/Plan Patient is a 67-year-old male with past medical history of multiple myeloma currently on chemotherapy (last on November 15) and dexamethasone, end-stage renal disease on peritoneal dialysis, atrial fibrillation not on anticoagulation, hypertension, chronic back pain, osteoporosis, recent hospitalization on November 05 treated for strep pneumonia, sepsis, peritonitis presenting this admission with chief complaint of worsening cough and tachycardia. Therefore current problems include 1. Paroxysmal atrial fibrillation but no evidence of atrial fibrillation at the moment. His heart rate is somewhat on the faster side. I expect that his blood pressure recordings are his usual as there is no secondary cause for hypotension at this time. I would add metoprolol 25 mg twice a day. 2. Pneumonia 3. Multiple myeloma 4. End-stage renal disease on peritoneal dialysis Continue telemetry? Yes
--- NOTE | 2017-11-23 10:16 | PN- Nephrology ---
Assessment/Plan Nephrology Assessment: Doing better. c/o constipation now. Might increase laxatives (e.g senna to bid, miralax). Continue all 1.5%D exchanges Nasir Khalil MD Suggestion: . Subjective Subjective: Patient feels/looks better. Objective Vital Signs and I&Os M NAD 98 86 92/60 Lungs clear occ rhonchi Cor RRR Abd soft Ext neg edema Vital Signs Current Medications: Current Medications Sig/Christie Start time Last Medication Dose Route Stop Time Status Admin Acetaminophen 650 MG Q6P PRN 11/20 2130 AC 11/21 PO 2354 Acetaminophen 1,000 MG Q6P PRN 11/20 2130 AC IV Acyclovir 200 MG DAILY 11/21 0800 AC 11/22 PO 0854 Albuterol Sulfate 3 ML BID 11/21 1156 AC 11/23 INH 0927 Alprazolam 0.25 MG ONCE ONE 11/23 0430 DC 11/23 PO 11/23 0431 0434 Azithromycin 500 MG 1600 11/22 1600 AC 11/22 Sodium Chloride 250 ML IV 1554 Ceftazidime 1,000 MG DAILY 11/21 899 AC 11/22 IV 0854 Docusate Sodium 100 MG DAILY 11/22 1113 AC 11/22 PO 1204 Epoetin Elvin 10,000 UNITS QWED 11/22 0900 AC 11/22 SC 0854 Guaifenesin 600 MG Q12 11/20 2309 AC 11/22 PO 2125 Ipratropium [place] 2.5 ML BID 11/21 1156 AC 11/23 INH 0927 Magnesium Oxide 400 MG DAILY 11/21 0900 AC 11/22 PO 0854 Metoprolol Tartrate 25 MG BID 11/23 1030 AC PO Midodrine 7.5 MG 0800,1200,1600 11/21 0230 AC 11/22 PO 1554 Oxycodone HCl 10 MG Q6 PRN 11/21 0015 AC PO Potassium Chloride 40 MEQ ONCE ONE 11/23 1015 DC PO 11/23 1016 Senna 187 MG AT BEDTIME 11/22 2100 AC 11/22 PO 2124 Sevelamer Carbonate 3,200 MG WM 11/21 0800 AC 11/22 PO 1701 Sevelamer Carbonate 1,600 MG TID PRN 11/21 0015 AC PO Results Pertinent Lab Results: K 3.3 Cultures NGTD
--- NOTE | 2017-11-23 10:17 | PN- CRCU ---
Subjective HPI/Critical Care Issues: Doing much better More awake Afebrile Now on room air Sinus rhythm Comfortable Review of symptoms otherwise unremarkable Objective Current Medications: Current Medications Sig/Christie Start time Last Medication Dose Route Stop Time Status Admin Acetaminophen 650 MG Q6P PRN 11/200 AC 11/21 PO 2354 Acetaminophen 1,000 MG Q6P PRN 11/20 2130 AC IV Acyclovir 200 MG DAILY 11/21 899 AC 11/22 PO 0854 Albuterol Sulfate 3 ML BID 11/21 1156 AC 11/23 INH 0927 Alprazolam 0.25 MG ONCE ONE 11/23 0430 DC 11/23 PO 11/23 0431 0434 Azithromycin 500 MG 1600 11/22 1600 AC 11/22 Sodium Chloride 250 ML IV 1554 Ceftazidime 1,000 MG DAILY 11/21 899 AC 11/22 IV 0854 Docusate Sodium 100 MG DAILY 11/22 1113 AC 11/22 PO 1204 Epoetin Elvin 10,000 UNITS QWED 11/22 899 AC 11/22 SC 0854 Guaifenesin 600 MG Q12 11/20 2309 AC 11/22 PO 2125 Ipratropium Coamo 2.5 ML BID 11/21 1156 AC 11/23 INH 0927 Magnesium Oxide 400 MG DAILY 11/21 899 AC 11/22 PO 0854 Midodrine 7.5 MG 0800,1200,1600 11/21 0230 AC 11/22 PO 1554 Oxycodone HCl 10 MG Q6 PRN 11/21 0015 AC PO Senna 187 MG AT BEDTIME 11/22 2100 AC 11/22 PO 2124 Sevelamer Carbonate 3,200 MG WM 11/21 0800 AC 11/22 PO 1701 Sevelamer Carbonate 1,600 MG TID PRN 11/21 0015 AC PO Vital Signs & I&O Last 24 Hrs of Vitals and I&O: Vital Signs Date Time Temp Pulse Resp B/P B/P Pulse O2 O2 Flow FiO2 Mean Ox Delivery Rate 11/23 0400 98 Nasal 2.0L Cannula 11/23 0000 98.0 86 24 92/60 96 Nasal 2.0L Cannula 11/23 0000 97 Nasal 2.0L Cannula 11/22 2000 98 Nasal 2.0L Cannula 11/22 1600 98.8 90 23 102/60 97 Nasal 4.0L Cannula 11/22 1200 94 Nasal 4.0L Cannula 11/22 1155 94 Nasal 4.0L Cannula Intake & Output 11/23 1600 11/23 0800 11/23 0000 Intake Total 50 560 Output Total 200 0 Balance -150 560 Intake, IV 0 250 Intake, Oral 50 310 Number 0 0 Bowel Movements Output, 200 0 Dialysate Output, Urine 0 0 Patient 139 lb Weight Weight Bed scale Measurement Method Laboratory Tests 11/23 11/22 11/22 0448 1022 0600 Chemistry Sodium (137 - 145 mmol/L) 138 Potassium (3.5 - 5.1 mmol/L) 3.3 L Chloride (98 - 107 mmol/L) 98 Carbon Dioxide (22 - 30 mmol/L) 27 Anion Gap (5 - 16) 14 BUN (9 - 20 mg/dL) 47 H Creatinine (0.7 - 1.2 mg/dL) 10.8 *H Estimated GFR (>60 ml/min) 5 L Glucose (65 - 99 mg/dL) 84 Calcium (8.4 - 10.2 mg/dL) 7.7 L Phosphorus (2.5 - 4.5 mg/dL) 6.5 H Magnesium (1.6 - 2.3 mg/dL) 1.6 Total Bilirubin (0.2 - 1.3 mg/dL) 0.6 AST (17 - 59 U/L) 9 L ALT (21 - 72 U/L) 10 L Albumin (3.5 - 5.0 g/dL) 2.4 L Aldosterone Pending Cortisol AM Sample Cancelled Hematology CBC w Diff NO MAN DIFF REQ WBC (4.8 - 10.8 /CUMM) 6.1 RBC (4.70 - 6.10 /CUMM) 2.50 L Hgb (14.0 - 18.0 G/DL) 7.8 L Hct (42 - 52 %) 24.3 L MCV (80.0 - 94.0 FL) 97.0 H MCH (27.0 - 31.0 PG) 31.0 MCHC (33.0 - 37.0 G/DL) 32.0 L RDW (11.5 - 14.5 %) 19.3 H Plt Count (130 - 400 /CUMM) 132 MPV (7.4 - 10.4 FL) 7.9 Gran % (42.2 - 75.2 %) 80.4 H Lymphocytes % (20.5 - 51.1 %) 11.8 L Monocytes % (1.7 - 9.3 %) 7.3 Eosinophils % (0 - 5 %) 0.2 Basophils % (0.0 - 2.0 %) 0.3 Absolute Granulocytes (1.4 - 6.5 /CUMM) 4.9 Absolute Lymphocytes (1.2 - 3.4 /CUMM) 0.7 L Absolute Monocytes (0.10 - 0.60 /CUMM) 0.4 Absolute Eosinophils (0.0 - 0.7 /CUMM) 0 Absolute Basophils (0.0 - 0.2 /CUMM) 0 11/22 11/22 11/22 0515 9310 0425 Chemistry Sodium (137 - 145 mmol/L) 138 Potassium (3.5 - 5.1 mmol/L) 3.5 Chloride (98 - 107 mmol/L) 96 L Carbon Dioxide (22 - 30 mmol/L) 27 Anion Gap (5 - 16) 15 BUN (9 - 20 mg/dL) 53 H Creatinine (0.7 - 1.2 mg/dL) 11.2 *H Estimated GFR (>60 ml/min) 5 L Glucose (65 - 99 mg/dL) 101 H Calcium (8.4 - 10.2 mg/dL) 8.1 L Phosphorus (2.5 - 4.5 mg/dL) 6.3 H Magnesium (1.6 - 2.3 mg/dL) 1.6 Total Bilirubin (0.2 - 1.3 mg/dL) 0.8 AST (17 - 59 U/L) 9 L ALT (21 - 72 U/L) 13 L Albumin (3.5 - 5.0 g/dL) 2.7 L Renin Pending Aldosterone Cancelled Cortisol AM Sample (4.46 - 22.7 ug/dL) 20.9 Hematology CBC w Diff NO MAN DIFF REQ WBC (4.8 - 10.8 /CUMM) 4.7 L RBC (4.70 - 6.10 /CUMM) 2.52 L Hgb (14.0 - 18.0 G/DL) 8.0 L Hct (42 - 52 %) 24.3 L MCV (80.0 - 94.0 FL) 96.3 H MCH (27.0 - 31.0 PG) 31.9 H MCHC (33.0 - 37.0 G/DL) 33.1 RDW (11.5 - 14.5 %) 19.3 H Plt Count (130 - 400 /CUMM) 118 L MPV (7.4 - 10.4 FL) 8.1 Gran % (42.2 - 75.2 %) 79.5 H Lymphocytes % (20.5 - 51.1 %) 12.4 L Monocytes % (1.7 - 9.3 %) 7.8 Eosinophils % (0 - 5 %) 0.1 Basophils % (0.0 - 2.0 %) 0.2 Absolute Granulocytes (1.4 - 6.5 /CUMM) 3.7 Absolute Lymphocytes (1.2 - 3.4 /CUMM) 0.6 L Absolute Monocytes (0.10 - 0.60 /CUMM) 0.4 Absolute Eosinophils (0.0 - 0.7 /CUMM) 0 Absolute Basophils (0.0 - 0.2 /CUMM) 0 11/21 11/21 1850 1759 Hematology CBC w Diff NO MAN DIFF REQ WBC (4.8 - 10.8 /CUMM) 3.5 L RBC (4.70 - 6.10 /CUMM) 2.81 L Hgb (14.0 - 18.0 G/DL) 9.0 L Hct (42 - 52 %) 26.8 L MCV (80.0 - 94.0 FL) 95.5 H MCH (27.0 - 31.0 PG) 32.0 H MCHC (33.0 - 37.0 G/DL) 33.5 RDW (11.5 - 14.5 %) 19.0 H Plt Count (130 - 400 /CUMM) 140 MPV (7.4 - 10.4 FL) 8.1 Gran % (42.2 - 75.2 %) 78.1 H Lymphocytes % (20.5 - 51.1 %) 11.6 L Monocytes % (1.7 - 9.3 %) 9.6 H Eosinophils % (0 - 5 %) 0.4 Basophils % (0.0 - 2.0 %) 0.3 Absolute Granulocytes (1.4 - 6.5 /CUMM) 2.7 Absolute Lymphocytes (1.2 - 3.4 /CUMM) 0.4 L Absolute Monocytes (0.10 - 0.60 /CUMM) 0.3 Absolute Eosinophils (0.0 - 0.7 /CUMM) 0 Absolute Basophils (0.0 - 0.2 /CUMM) 0 Misc Hematology Test (%) Other Body Source Fluid WBC (0 - 5 /CUMM) 9 H Fld Total RBCs Counted (0 /CUMM) 4 H 11/21 1216 Hematology CBC w Diff NO MAN DIFF REQ WBC (4.8 - 10.8 /CUMM) 4.2 L RBC (4.70 - 6.10 /CUMM) 2.44 L Hgb (14.0 - 18.0 G/DL) 7.9 L Hct (42 - 52 %) 23.2 L MCV (80.0 - 94.0 FL) 95.1 H MCH (27.0 - 31.0 PG) 32.5 H MCHC (33.0 - 37.0 G/DL) 34.2 RDW (11.5 - 14.5 %) 18.9 H Plt Count (130 - 400 /CUMM) 133 MPV (7.4 - 10.4 FL) 8.2 Gran % (42.2 - 75.2 %) 75.5 H Lymphocytes % (20.5 - 51.1 %) 14.0 L Monocytes % (1.7 - 9.3 %) 9.8 H Eosinophils % (0 - 5 %) 0.3 Basophils % (0.0 - 2.0 %) 0.4 Absolute Granulocytes (1.4 - 6.5 /CUMM) 3.1 Absolute Lymphocytes (1.2 - 3.4 /CUMM) 0.6 L Absolute Monocytes (0.10 - 0.60 /CUMM) 0.4 Absolute Eosinophils (0.0 - 0.7 /CUMM) 0 Absolute Basophils (0.0 - 0.2 /CUMM) 0 Microbiology Date/Time Procedure - Status Source Growth 11/22 1221 Respiratory Culture - CAN LOWER RESP Cancelled: NUMBER OF SQUAMOUS CELLS INDICATES POOR QUALITY SPECIMEN 11/22 1221 Gram Stain - CAN LOWER RESP Cancelled: NUMBER OF SQUAMOUS CELLS INDICATES POOR QUALITY SPECIMEN 11/21 184 Body Fluid Culture - RES BODY FLUID 11/21 184 Gram Stain - RES BODY FLUID 11/21 144 Respiratory Culture - CAN LOWER RESP Cancelled: SPECIMEN NOT RECEIVED IN LABORATORY 11/21 144 Gram Stain - CAN LOWER RESP Cancelled: SPECIMEN NOT RECEIVED IN LABORATORY 11/21 0105 Influenza Virus A & B Rapid Smear - COMP NASOPHARYN 11/21 0010 Surveillance Culture - COMP UPPER RESP 11/21 9 Surveillance Culture - COMP GI 11/20 2254 Respiratory Culture - CAN LOWER RESP Cancelled: NO SAMPLE COLLECTED FOR MICRO DEPT. 11/20 2254 Gram Stain - CAN LOWER RESP Cancelled: NO SAMPLE COLLECTED FOR MICRO DEPT. 11/20 1615 Blood Culture - RES BLOOD 11/20 1554 Blood Culture - RES BLOOD 11/20 1531 Blood Culture - CAN BLOOD Cancelled: Cancelled via OE: DUPLICATE ORDER Impression/Plan Impression/Plan Impression/Plan: He is afebrile. Skin reveals no rash. HEENT exam is negative. Neck is supple with no adenopathy. Lungs diffuse bilateral rhonchi. Heart regular rhythm with a 2/6 systolic ejection murmur. Abdomen is soft, nontender with positive bowel sounds; Tenckhoff catheter in place with no inflammation at the site. Extremities no cyanosis, clubbing or edema; reducible right femoral hernia, with no tenderness on palpation. Neuro is without focality. dried blood at the urethral meatus. CT scan 1. There is increasing consolidation of the left lower lobe, now affecting nearly the entire lobe. Air bronchograms are present. Similar consolidation dependently in the right lower lobe. These findings could represent atelectasis or pneumonia. 2. Resolution of the anterior right upper lobe groundglass opacity. 3. Cholelithiasis. Increase in small volume ascites. Nephrolithiasis. This is a 67-year-old man with a history of multiple myeloma, treated with chemotherapy, including Decadron, Cybor d adn aranasep every other week, most recently 5 days prior to admission, with stable globulins and MRIs, end-stage renal disease, maintained on CCPD, hospitalized 1 month prior to admission with pneumococcal sepsis, Now admittedwith a persistent cough, increasing weakness and lethargy with poor p.o. intake and weight loss, found to be afebrile with hypotension, a normal white blood cell count and a left lower lobe density on chest x-ray. ISSUES * Resolving Sepsis with prob pna HCAP with LLL PNA ( recent strep pneumo sepsis * Advanced multiple myeloma with ongoing chemotherapy, seems to be relatively stable, hence immunosuppressed * Severe osteoporosis with myeloma involvement of the spine with chronic neck pain * Resolved Hypotension from sepsis * Chronic hypotension due to end-stage renal disease and autonomic dysfunction on Midodrin * Chronic pain syndrome on oxycodone due to severe spine involvement * End-stage renal disease on peritoneal dialysis * Elevated BNP secondary to end-stage renal disease no clinical evidence suggestive of acute coronary syndrome * Chronic paroxysmal atrial fibrillation not on anticoagulation due to recent anemia PLAN/ Stable transferred to a regular medical floor Continue antibiotics per ID Metoprolol 25 twice a day for his blood pressure permits Continue Midodrin and dose may need to be increased Continue antiviral therapy as ordered Keep the head of bed elevated Attempt to get a sputum culture if able Watch blood work platelet count etc. transfusion for hematology noted Continue aggressive pulmonary toilet Signed out to the hospitalist
--- NOTE | 2017-11-23 11:50 | PN- Infect Dx ---
Subjective Subjective: Afebrile. He complains of abdominal discomfort. His reports choking with eating but overall improvement in his cough. She also reports less confusion. Objective Last 24 Hrs of Vital Signs/I&O Vital Signs Date Time Temp Pulse Resp B/P B/P Pulse O2 O2 Flow FiO2 Mean Ox Delivery Rate 11/23 08 96 Room Air Room Air 11/23 0400 98 Nasal 2.0L Cannula 11/23 0000 98.0 86 24 92/60 96 Nasal 2.0L Cannula 11/23 0000 97 Nasal 2.0L Cannula 11/22 2000 98 Nasal 2.0L Cannula 11/22 1600 98.8 90 23 102/60 97 Nasal 4.0L Cannula 11/22 1200 94 Nasal 4.0L Cannula 11/22 1155 94 Nasal 4.0L Cannula Intake & Output 11/23 1600 11/23 0800 11/23 0000 Intake Total 50 560 Output Total 200 0 Balance -150 560 Intake, IV 0 250 Intake, Oral 50 310 Number 0 0 Bowel Movements Output, 200 0 Dialysate Output, Urine 0 0 Patient 139 lb Weight Weight Bed scale Measurement Method Physical Exam Other Physical Findings: He appears comfortable, in no acute distress, now off oxygen. He does not appear confused at present Lungs much clearer with decreased rhonchi Heart regular rhythm with no murmur Abdomen is mildly distended, nontender with positive bowel sounds; Tenckhoff catheter in place with dressing intact Extremities no cyanosis, clubbing or edema Results Last 24 Hours of Lab Results: Laboratory Tests 11/23 0448 Chemistry Sodium (137 - 145 mmol/L) 138 Potassium (3.5 - 5.1 mmol/L) 3.3 L Chloride (98 - 107 mmol/L) 98 Carbon Dioxide (22 - 30 mmol/L) 27 Anion Gap (5 - 16) 14 BUN (9 - 20 mg/dL) 47 H Creatinine (0.7 - 1.2 mg/dL) 10.8 *H Estimated GFR (>60 ml/min) 5 L Glucose (65 - 99 mg/dL) 84 Calcium (8.4 - 10.2 mg/dL) 7.7 L Phosphorus (2.5 - 4.5 mg/dL) 6.5 H Magnesium (1.6 - 2.3 mg/dL) 1.6 Total Bilirubin (0.2 - 1.3 mg/dL) 0.6 AST (17 - 59 U/L) 9 L ALT (21 - 72 U/L) 10 L Albumin (3.5 - 5.0 g/dL) 2.4 L Hematology CBC w Diff NO MAN DIFF REQ WBC (4.8 - 10.8 /CUMM) 6.1 RBC (4.70 - 6.10 /CUMM) 2.50 L Hgb (14.0 - 18.0 G/DL) 7.8 L Hct (42 - 52 %) 24.3 L MCV (80.0 - 94.0 FL) 97.0 H MCH (27.0 - 31.0 PG) 31.0 MCHC (33.0 - 37.0 G/DL) 32.0 L RDW (11.5 - 14.5 %) 19.3 H Plt Count (130 - 400 /CUMM) 132 MPV (7.4 - 10.4 FL) 7.9 Gran % (42.2 - 75.2 %) 80.4 H Lymphocytes % (20.5 - 51.1 %) 11.8 L Monocytes % (1.7 - 9.3 %) 7.3 Eosinophils % (0 - 5 %) 0.2 Basophils % (0.0 - 2.0 %) 0.3 Absolute Granulocytes (1.4 - 6.5 /CUMM) 4.9 Absolute Lymphocytes (1.2 - 3.4 /CUMM) 0.7 L Absolute Monocytes (0.10 - 0.60 /CUMM) 0.4 Absolute Eosinophils (0.0 - 0.7 /CUMM) 0 Absolute Basophils (0.0 - 0.2 /CUMM) 0 Last 24 Hours of Tyler Results: Dialysate fluid culture November 21 negative Blood cultures 2 November 20 negative Assessment/Plan ID Impression: Appears to be improving, with temperatures remaining normal and white blood cell count also normal, on Azithromycin and Ceftazidime, now Day 3 of treatment for a left lower lobe pneumonia seen on the chest x-ray and CT. His reports choking with eating and a swallowing evaluation may be necessary. His abdominal discomfort may be secondary to constipation and this is being addressed. Suggestion: 1. Swallowing evaluation 2. Continue Azithromycin and Ceftazidime
[2017-11-23 15:47] VITALS: BP 120/60
[2017-11-23 21:00] VITALS: BP 120/80
[2017-11-23 22:30] VITALS: BP 120/80
[2017-11-24 07:06] VITALS: BP 100/68
--- NOTE | 2017-11-24 07:26 | Discharge Summary ---
Visit Information Visit Dates Admission Date: 11/20/17 Discharge Date: 11/25/17 Hospital Course Course Attending Physician: Vladislav KRISHNAMURTHY,Telma Primary Care Physician: Frederic KRISHNAMURTHY,Tad [facility] Course: Mr. Grant is a 67-year-old male with past medical history of multiple myeloma currently on chemotherapy (last on November 15) and dexamethasone, end-stage renal disease on peritoneal dialysis, atrial fibrillation not on anticoagulation, hypertension, chronic back pain, osteoporosis initially admitted to the ICU for HCAP sepsis but subsequently downgraded to the general medical floor once sepsis was ruled out #Left lower lobe pneumonia His initial vitals were Temperature 99.8, pulse 122, RR 22, blood pressure 90/60 , saturating 94% on 2 L nasal cannula. His low BP was concerning for sepsis due to possible pneumonia as he was recently admitted for strep pneumo sepsis. CXR revealed linear atelectasis left lung base. Chest Ct revealed increasing consolidation of the left lower lobe with air bronchograms and similar consolidation dependently in the right lower lobe. Rapid flu was negative. Nares surveillance negative for MRSA. Blood cultures and peritoneal diasylate cultures were negative. The patient was started on Ceftazidime and Azithromycin to cover CAP. #Hypotension The patient initially presented with BP of 80-90s/50-60s. He was given fluid resuscitation for pressure support. Trops and EKG were negative for ACS. There were concerns of adrenal insuffiency as the patient is on dexamethasone but he was evaluated by endocrinology who did not think he had adrenal insuffiency as his random cortisol levels and AM cortisol were approriate. He was continued on his midodrine for autonomic hypotension. His aldosterone was elevated at 111 and his renin was appropriate, not consistent with adrenal insufficiency. #Tachycardia in the setting of hx of A. fib currently not on any anticoagulation Cardiology was consulted. The patient presented with worsening tachycardia possibly contibuted to his anemia and infection. He is not currently anticoagulated as he is anemic and has a hx of MM and ESRD. His HR has improved as the infection was being treated. He was started on metoprolol trial 12.5mg BID #Elevated proBNP with no signs of fluid overload The [place] ProBNP [place] [id number]. Last ECHO October revealed EF 65-70%. It was suspected to be due to ESRD and reduced ability to clear protein #Anemia Patient has a history of multiple myeloma. Heme/Onc was consulted. He was transfused 1 unit of packed red blood cells during admission as his hemoglobin dropped from 8.9-7.0. He showed no signs of active bleeding. He was started on Epogen 10k units #History of Multiple myeloma Patient on chemotherapy and dexamethasone every 2 weeks. His chemotherapy was placed on hold due to his acute infection #Abdominal hernia Surgery was consulted. Patient was advised to follow-up as an outpatient for repair of his inguinal hernia after he recovered of pulmonary infection #History of ESRD Nephrology was consulted. He was continued peritoneal dialysis and his home medication Sevelamer. #Electrolyte abnormallities His electrolytes were monitored and replenished as needed. #Cholelithiasis CT found cholelithiasis. Patient remained asymptomatic. #Penile bloody spotting in the setting of nephrolithiasis Penile bloody spotting with no clear cause. CT found b/l nephrolithiasis. He was given instructions to follow-up as an outpatient. Allergies: Coded Allergies: oxycodone (Intermediate, DELERIUM 11/20/17) Pertinent Lab Results: 11/20/17-150 EXAM TYPE: RAD - XRY-PORTABLE CHEST XRAY IMPRESSION: Low lung volume. Linear atelectasis left lung base. No acute change of chest. 11/21/17- EXAM TYPE: RAD - XRY-PORTABLE CHEST XRAY IMPRESSION: 1. There is persistent elevation of the left hemidiaphragm. There is increased atelectasis versus infiltrate at the left base. Recommend radiographic follow-up to clearance. 2. There are low lung volumes. 3. No congestive heart failure is seen. 11/21/17 EXAM TYPE: CAT - CT CHEST WO IV CONTRAST IMPRESSION: 1. There is increasing consolidation of the left lower lobe, now affecting nearly the entire lobe. Air bronchograms are present. Similar consolidation dependently in the right lower lobe. These findings could represent atelectasis or pneumonia. 2. Resolution of the anterior right upper lobe groundglass opacity. 3. Cholelithiasis. Increase in small volume ascites. Nephrolithiasis. Disposition Summary Disposition Principal Diagnosis: Left lower lobe pneumonia Anemia Hypotension Tachycardia Electrolyte derangements Abdominal hernia Cholelithiasis Nephrolithiasis Additional Diagnosis: As above Discharge Disposition: home health services Discharge Instructions General Discharge Information Code Status: Full Code Patient's Diet: Regular Patient's Activity: As tolerated Follow-Up Instructions/Appts: You were started on a new medication for your low blood pressure. Talk to your provider upon discharge about continuing the medication. Complete your antibiotic course. Follow up with your vulcanized fiber unit operator within 1 week of discharge Follow up with your PCP within 1-2 weeks of discharge Follow up with the Software Specialist within 1 week of discharge Medications at Discharge Discharge Medications: Stop taking the following medications: Carvedilol (Carvedilol) 3.125 MG TABLET ORAL TWICE DAILY Qty = 30 Continue taking these medications: Sevelamer Carbonate (Renvela) 800 MG TABLET 4 Tablet ORAL WITH MEALS Qty = 480 Comments: Last Taken: 11/05/17 Time: 0816 Acyclovir (Acyclovir) 200 MG CAPSULE 1 Capsule ORAL DAILY Qty = 30 Comments: Last Taken:11/25/17 Time: 8:00 AM Oxycodone HCl (Oxycodone HCl) 10 MG TABLET 1-2 Tablet ORAL Q4-6H as needed for PAIN Qty = 100 Comments: NOT GIVEN WHILE IN HOSPITAL Vit B Cmplx 3/FA/Vit C/Biotin (Nephro-Nola Rx Tablet) 1 MG-60 MG-300 MCG TABLET 1 Tablet ORAL DAILY Qty = 30 Comments: NOT GIVEN WHILE IN HOSPITAL Prochlorperazine Maleate (Prochlorperazine Maleate) 10 MG TABLET 1 Tablet ORAL EVERY SIX HOURS as needed for N/V Comments: NOT TAKEN IN HOSPITAL Oxycodone HCl (Oxycodone HCl ER) 20 MG TAB.ER.12H 1 Tablet ORAL TWICE DAILY Comments: NOT GIVEN WHILE IN HOSPITAL Magnesium Oxide (Magnesium Oxide) 400 MG TABLET 1 Tablet ORAL DAILY Qty = 30 Comments: Last Taken:11/24/17 Time: 8:30 AM Lubiprostone (Amitiza) 24 MCG CAPSULE 1 Capsule ORAL TWICE DAILY Qty = 60 Comments: NOT GIVEN WHILE IN HOSPITAL Sevelamer Carbonate (Renvela) 800 MG TABLET 2 Tablet ORAL THREE TIMES DAILY as needed for KIDNEYS Comments: Last Taken:11/25/17 Time: 8:30 AM Start taking the following new medications: Levofloxacin (Levaquin) 500 MG TABLET 500 Milligram ORAL Q48H Qty = 5 No Refills Instructions: . Comments: Last Taken: 11/24/17 Time: 3:15 PM Midodrine HCl (Midodrine HCl) 2.5 MG TABLET 7.5 Milligram ORAL 0800,1200,1600 Qty = 42 No Refills Instructions: .. Comments: Last Taken:11/25/17 Time: 8:30 AM Metoprolol Tartrate (Metoprolol Tartrate) 25 MG TABLET 12.5 Milligram ORAL TWICE DAILY Qty = 30 Refills = 1 Instructions: .. Comments: Last Taken:11/23/17 Time: 8:45 PM Copies To: Alena KRISHNAMURTHY,Kwasi Rodriguez; Simran KRISHNAMURTHY,Nasir Harris; Perla KRISHNAMURTHY,Ace Rodriguez; Eve KRISHNAMURTHY,Bharath Talley; Junito KRISHNAMURTHY,Lenin De La Garza MD,Tad Navarro
--- NOTE | 2017-11-24 08:15 | PN- Housestaff ---
Subjective Follow-up For: Sepsis secondary to HCAP Anemia status post 1 unit packed red blood cells ESRD on peritoneal hemodialysis Hypotension Subjective: Patient denies SOB, CP, cough, nausea, vomiting, fever, urinary incontinence or diarrhea. at bedside Review of Systems Constitutional: Reports: see HPI. Objective Last 24 Hrs of Vital Signs/I&O Vital Signs Date Time Temp Pulse Resp B/P B/P Pulse O2 O2 Flow FiO2 Mean Ox Delivery Rate 11/24 0822 96 Room Air Room Air 11/24 0706 98.9 88 16 100/68 98 Room Air 11/24 0000 Room Air 11/23 2230 98.5 80 16 120/80 92 Room Air 11/23 2100 98.5 80 16 120/80 92 Room Air 11/23 2047 98.5 80 16 120/80 11/23 1958 95 Room Air Room Air 11/23 1600 Room Air 11/23 1547 97.7 80 20 120/60 92 Room Air 11/23 1200 96 Room Air Room Air Intake & Output 11/24 1600 11/24 0800 11/24 0000 Intake Total 730 Output Total 3000 2400 Balance -3000 -1670 Intake, IV 250 Intake, Oral 480 Number 0 Bowel Movements Output, 3000 2400 Dialysate Output, Urine 0 Patient 143 lb 139 lb Weight Weight Bed scale Measurement Method Physical Exam General Appearance: Alert, Oriented X3, Cooperative, No Acute Distress Cardiovascular: Regular Rate, Normal S1, Normal S2 Lungs: Clear to Auscultation, Normal Air Movement Abdomen: Normal Bowel Sounds, Soft, No Tenderness Extremities: No Edema Current Medications: Current Medications Sig/Christie Start time Last Medication Dose Route Stop Time Status Admin Acetaminophen 650 MG Q6P PRN 11/20 2130 AC 11/21 PO 2354 Acetaminophen 1,000 MG Q6P PRN 11/20 2130 AC IV Acyclovir 200 MG DAILY 11/21 899 AC 11/24 PO 0828 Albuterol Sulfate 3 ML BID 11/21 1156 AC 11/24 INH 0822 Alprazolam 0.25 MG ONCE ONE 11/23 1900 DC 11/23 PO 11/23 1901 2046 Azithromycin 500 MG 1600 11/22 1600 AC 11/23 Sodium Chloride 250 ML IV 1747 Bisacodyl 10 MG ONCE ONE 11/23 1145 DC 11/23 [place] 11/23 1146 1225 Ceftazidime 1,000 MG DAILY 11/21 899 AC 11/24 IV 0828 Docusate Sodium 100 MG DAILY 11/22 1113 AC 11/24 PO 0827 Epoetin Elvin 10,000 UNITS QWED 11/22 899 AC 11/22 SC 0854 Guaifenesin 600 MG Q12 11/20 2309 AC 11/24 PO 0827 Ipratropium [place] 2.5 ML BID 11/21 1156 AC 11/24 INH 0822 Magnesium Oxide 400 MG DAILY 11/21 899 AC 11/24 PO 08 Metoprolol Tartrate 12.5 MG BID 11/23 2099 AC 11/23 PO 204 Metoprolol Tartrate 25 MG BID 11/23 1030 DC PO Midodrine 7.5 MG 0800,1200,1600 11/21 0230 AC 11/24 PO 08 Oxycodone HCl 10 MG Q6 PRN 11/21 0015 AC PO Prochlorperazine 10 MG ONCE ONE 11/23 1745 DC 11/23 PO 11/23 1746 1751 Senna 187 MG AT BEDTIME 11/22 2099 AC 11/23 PO 2045 Sevelamer Carbonate 3,200 MG WM 11/22 799 AC 11/24 PO 0826 Sevelamer Carbonate 1,600 MG TID PRN 11/21 0015 AC PO Last 24 Hrs of Lab/Tyler Results Last 24 Hrs of Labs/Mics: Laboratory Tests 11/24/17 0707: Anion Gap 13, Estimated GFR 5 L, BUN/Creatinine Ratio 4.9 L, Calcium 7.9 L, Phosphorus 6.6 H, Magnesium 1.7, CBC w Diff NO MAN DIFF REQ, RBC 2.68 L, MCV 96.5 H, MCH 31.6 H, MCHC 32.8 L, RDW 19.2 H, MPV 8.1, Gran % 80.2 H, Lymphocytes % 10.2 L, Monocytes % 9.0, Eosinophils % 0.2, Basophils % 0.4, Absolute Granulocytes 5.2, Absolute Lymphocytes 0.7 L, Absolute Monocytes 0.6, Absolute Eosinophils 0, Absolute Basophils 0 Microbiology 11/23 1336 LOWER RESP: Respiratory Culture - COLB 11/23 1336 LOWER RESP: Gram Stain - COLB Assessment/Plan Assessment: Mr. Grant is a 67-year-old male with past medical history of multiple myeloma currently on chemotherapy (last on November 15) and dexamethasone, end-stage renal disease on peritoneal dialysis, atrial fibrillation not on anticoagulation, hypertension, chronic back pain, osteoporosis initially admitted to the ICU for Sepsis 2/2 HCAP #Sepsis secondary to HCAP We will disontinue IV azithromycin and IV ceftazidime we will transition Levaquin today to complete a 10 day course of treatment Appreciate ID recommendations #Anemia status post 1 unit packed red blood cells Monitor H&H #ESRD on peritoneal hemodialysis Continue Sevelamer Appreciate nephrology recommendations #Hypotension (baseline SBP 90s) Continue metoprolol with holding parameters Continue Midodrine Serum renin and aldosterone pending, cortisol WNL Appreciate Endo recommendations #Chronic medical condition Appreciate cardio recommendations, patient not on anticoagulation for PAF due to anemia in the setting of MM and ESRD Diet: Regular ( and patient refused renal diet) DVT: sc Heparin Code: FULL Problem List: 1. Hypotension Pain Ratin Pain Location: NA Pain Goal: Remain pain free Pain Plan: NA Tomorrow's Labs & Rationales: BEp, cbc
[2017-11-24 08:52] LABS: ABSOLUTE BASOPHIL COUNT 0 /CUMM (0.0-0.2); ABSOLUTE EOSINOPHIL COUNT 0 /CUMM (0.0-0.7); ABSOLUTE GRANULOCYTE CT 5.2 /CUMM (1.4-6.5); ABSOLUTE LYMPH COUNT 0.7 /CUMM (1.2-3.4); ABSOLUTE MONOCYTE COUNT 0.6 /CUMM (0.10-0.60); BASOPHIL % 0.4 % (0.0-2.0); EOSINOPHIL % 0.2 % (0-5); GRANULOCYTE % 80.2 % (42.2-75.2); HEMATOCRIT 25.8 % (42-52); MEAN CORPUSCULAR HGB 31.6 PG (27.0-31.0); MEAN CORPUSCULAR HGB CONC 32.8 G/DL (33.0-37.0); MEAN CORPUSCULAR VOLUME 96.5 FL (80.0-94.0); MEAN PLATELET VOLUME 8.1 FL (7.4-10.4); PLATELET COUNT 142 /CUMM (130-400); RBC DISTRIBUTION WIDTH 19.2 % (11.5-14.5); RED BLOOD CELL CT 2.68 /CUMM (4.70-6.10); WHITE BLOOD CELL COUNT 6.5 /CUMM (4.8-10.8)
--- NOTE | 2017-11-24 10:55 | PN- Att Addend ---
Attending Addendum Attending Brief Note Patient seen and examined, overall doing better. Afebrile, on room air now. Denies any complaints. Vital Signs Date Time Temp Pulse Resp B/P B/P Pulse O2 O2 Flow FiO2 Mean Ox Delivery Rate 11/24 08 96 Room Air Room Air 11/24 0706 98.9 88 16 100/68 98 Room Air 11/24 0000 Room Air 11/23 2230 98.5 80 16 120/80 92 Room Air 11/23 2100 98.5 80 16 120/80 92 Room Air 11/23 2047 98.5 80 16 120/80 11/23 1958 95 Room Air Room Air 11/23 1600 Room Air 11/23 1547 97.7 80 20 120/60 92 Room Air 11/23 1200 96 Room Air Room Air on exam; aox3, nad. cv; s1,s2, rrr resp; clear abd; soft, nt, bs+, + PD cath ext; no edema Laboratory Tests 11/24 706 Chemistry Sodium (137 - 145 mmol/L) 138 Potassium (3.5 - 5.1 mmol/L) 3.8 Chloride (98 - 107 mmol/L) 95 L Carbon Dioxide (22 - 30 mmol/L) 29 Anion Gap (5 - 16) 13 BUN (9 - 20 mg/dL) 50 H Creatinine (0.7 - 1.2 mg/dL) 10.3 *H Estimated GFR (>60 ml/min) 5 L BUN/Creatinine Ratio (7 - 25 %) 4.9 L Calcium (8.4 - 10.2 mg/dL) 7.9 L Phosphorus (2.5 - 4.5 mg/dL) 6.6 H Magnesium (1.6 - 2.3 mg/dL) 1.7 Hematology CBC w Diff NO MAN DIFF REQ WBC (4.8 - 10.8 /CUMM) 6.5 RBC (4.70 - 6.10 /CUMM) 2.68 L Hgb (14.0 - 18.0 G/DL) 8.5 L Hct (42 - 52 %) 25.8 L MCV (80.0 - 94.0 FL) 96.5 H MCH (27.0 - 31.0 PG) 31.6 H MCHC (33.0 - 37.0 G/DL) 32.8 L RDW (11.5 - 14.5 %) 19.2 H Plt Count (130 - 400 /CUMM) 142 MPV (7.4 - 10.4 FL) 8.1 Gran % (42.2 - 75.2 %) 80.2 H Lymphocytes % (20.5 - 51.1 %) 10.2 L Monocytes % (1.7 - 9.3 %) 9.0 Eosinophils % (0 - 5 %) 0.2 Basophils % (0.0 - 2.0 %) 0.4 Absolute Granulocytes (1.4 - 6.5 /CUMM) 5.2 Absolute Lymphocytes (1.2 - 3.4 /CUMM) 0.7 L Absolute Monocytes (0.10 - 0.60 /CUMM) 0.6 Absolute Eosinophils (0.0 - 0.7 /CUMM) 0 Absolute Basophils (0.0 - 0.2 /CUMM) 0 A/P: 67 y/o M with pmh sig for multiple myeloma currently on chemotherapy (last on November 15) and dexamethasone, end-stage renal disease on peritoneal dialysis, atrial fibrillation not on anticoagulation, hypertension, chronic back pain, osteoporosis here with resolving sepsis, pneumonia which is suspected gram- negative/atypicals. Patient overall doing better. His antibiotics will be switched to oral after we discussed with infectious disease. Patient worked with physical therapy today. Patient gets peritoneal dialysis but his schedule. Patient has hypertension but that is his baseline. He Coumadin for that. Continue the rest of the management including TRC nebs. DVT px; ALPS. Possible Discharge tomorrow. Pt and refuse Rehab.
--- NOTE | 2017-11-24 11:36 | PN- Infect Dx ---
Subjective Subjective: Afebrile. He feels well with minimal if any cough and no complaints of shortness of breath or chest pain. His reports decreased confusion. His blood pressure remains low, however, and was documented to be 70/26 this morning. Objective Last 24 Hrs of Vital Signs/I&O Vital Signs Date Time Temp Pulse Resp B/P B/P Pulse O2 O2 Flow FiO2 Mean Ox Delivery Rate 11/24 1115 70/26 11/24 0822 96 Room Air Room Air 11/24 0706 98.9 88 16 100/68 98 Room Air 11/24 0000 Room Air 11/23 2230 98.5 80 16 120/80 92 Room Air 11/23 2100 98.5 80 16 120/80 92 Room Air 11/23 2047 98.5 80 16 120/80 11/23 1958 95 Room Air Room Air 11/23 1600 Room Air 11/23 1547 97.7 80 20 120/60 92 Room Air 11/23 1200 96 Room Air Room Air Intake & Output 11/24 1600 11/24 0800 11/24 0000 Intake Total 730 Output Total 3000 2400 Balance -3000 -1670 Intake, IV 250 Intake, Oral 480 Number 0 Bowel Movements Output, 3000 2400 Dialysate Output, Urine 0 Patient 143 lb 139 lb Weight Weight Bed scale Measurement Method Physical Exam Other Physical Findings: He appears comfortable, awake and alert, in no acute distress Lungs bibasilar rhonchi Heart irregular rhythm with no murmur Abdomen is soft, nontender with positive bowel sounds Extremities no cyanosis, clubbing or edema Results Last 24 Hours of Lab Results: Laboratory Tests 11/24 0707 Chemistry Sodium (137 - 145 mmol/L) 138 Potassium (3.5 - 5.1 mmol/L) 3.8 Chloride (98 - 107 mmol/L) 95 L Carbon Dioxide (22 - 30 mmol/L) 29 Anion Gap (5 - 16) 13 BUN (9 - 20 mg/dL) 50 H Creatinine (0.7 - 1.2 mg/dL) 10.3 *H Estimated GFR (>60 ml/min) 5 L BUN/Creatinine Ratio (7 - 25 %) 4.9 L Calcium (8.4 - 10.2 mg/dL) 7.9 L Phosphorus (2.5 - 4.5 mg/dL) 6.6 H Magnesium (1.6 - 2.3 mg/dL) 1.7 Hematology CBC w Diff NO MAN DIFF REQ WBC (4.8 - 10.8 /CUMM) 6.5 RBC (4.70 - 6.10 /CUMM) 2.68 L Hgb (14.0 - 18.0 G/DL) 8.5 L Hct (42 - 52 %) 25.8 L MCV (80.0 - 94.0 FL) 96.5 H MCH (27.0 - 31.0 PG) 31.6 H MCHC (33.0 - 37.0 G/DL) 32.8 L RDW (11.5 - 14.5 %) 19.2 H Plt Count (130 - 400 /CUMM) 142 MPV (7.4 - 10.4 FL) 8.1 Gran % (42.2 - 75.2 %) 80.2 H Lymphocytes % (20.5 - 51.1 %) 10.2 L Monocytes % (1.7 - 9.3 %) 9.0 Eosinophils % (0 - 5 %) 0.2 Basophils % (0.0 - 2.0 %) 0.4 Absolute Granulocytes (1.4 - 6.5 /CUMM) 5.2 Absolute Lymphocytes (1.2 - 3.4 /CUMM) 0.7 L Absolute Monocytes (0.10 - 0.60 /CUMM) 0.6 Absolute Eosinophils (0.0 - 0.7 /CUMM) 0 Absolute Basophils (0.0 - 0.2 /CUMM) 0 Last 24 Hours of Tyler Results: Dialysate fluid culture November 8 negative Assessment/Plan ID Impression: Continues to improve, with temperatures and white blood cell count remaining normal, on Azithromycin and Ceftazidime, now Day 4 of treatment for a left lower lobe pneumonia seen on the chest x-ray and CT. Swallowing evaluation noted and appreciated, with patient felt to be a minimal aspiration risk. His hypotension is of concern and is most likely medication related. Suggestion: 1. Cardiology follow-up regarding his hypotension 2. Discontinue Azithromycin and Ceftazidime 3. Begin Levaquin 500 mg p.o. every 48 hours to complete a 10 day course of treatment Dr. García will be covering over the weekend
[2017-11-24 13:32] VITALS: BP 94/60
--- NOTE | 2017-11-24 14:36 | PN- Nephrology ---
Assessment/Plan Nephrology Assessment: ESRD. pneumonia. doing better. VOlume status okay will continue all 1.5%D continue antibiotics. Nasir Khalil MD Suggestion: . Subjective Subjective: Pt feels better. cough improved. (still present) Objective Vital Signs and I&Os M NAD 94/60 95 99 Lungs clear Cor RRR Abd soft Ext neg edema Results Pertinent Lab Results: Laboratory Tests 11/24 11/23 0707 0448 Chemistry Sodium (137 - 145 mmol/L) 138 138 Potassium (3.5 - 5.1 mmol/L) 3.8 3.3 L Chloride (98 - 107 mmol/L) 95 L 98 Carbon Dioxide (22 - 30 mmol/L) 29 27 Anion Gap (5 - 16) 13 14 BUN (9 - 20 mg/dL) 50 H 47 H Creatinine (0.7 - 1.2 mg/dL) 10.3 *H 10.8 *H Estimated GFR (>60 ml/min) 5 L 5 L BUN/Creatinine Ratio (7 - 25 %) 4.9 L Glucose (65 - 99 mg/dL) 84 Calcium (8.4 - 10.2 mg/dL) 7.9 L 7.7 L Phosphorus (2.5 - 4.5 mg/dL) 6.6 H 6.5 H Magnesium (1.6 - 2.3 mg/dL) 1.7 1.6 Total Bilirubin (0.2 - 1.3 mg/dL) 0.6 AST (17 - 59 U/L) 9 L ALT (21 - 72 U/L) 10 L Albumin (3.5 - 5.0 g/dL) 2.4 L Hematology CBC w Diff NO MAN DIFF REQ NO MAN DIFF REQ WBC (4.8 - 10.8 /CUMM) 6.5 6.1 RBC (4.70 - 6.10 /CUMM) 2.68 L 2.50 L Hgb (14.0 - 18.0 G/DL) 8.5 L 7.8 L Hct (42 - 52 %) 25.8 L 24.3 L MCV (80.0 - 94.0 FL) 96.5 H 97.0 H MCH (27.0 - 31.0 PG) 31.6 H 31.0 MCHC (33.0 - 37.0 G/DL) 32.8 L 32.0 L RDW (11.5 - 14.5 %) 19.2 H 19.3 H Plt Count (130 - 400 /CUMM) 142 132 MPV (7.4 - 10.4 FL) 8.1 7.9 Gran % (42.2 - 75.2 %) 80.2 H 80.4 H Lymphocytes % (20.5 - 51.1 %) 10.2 L 11.8 L Monocytes % (1.7 - 9.3 %) 9.0 7.3 Eosinophils % (0 - 5 %) 0.2 0.2 Basophils % (0.0 - 2.0 %) 0.4 0.3 Absolute Granulocytes (1.4 - 6.5 /CUMM) 5.2 4.9 Absolute Lymphocytes (1.2 - 3.4 /CUMM) 0.7 L 0.7 L Absolute Monocytes (0.10 - 0.60 /CUMM) 0.6 0.4 Absolute Eosinophils (0.0 - 0.7 /CUMM) 0 0 Absolute Basophils (0.0 - 0.2 /CUMM) 0 0 11/22 11/22 11/22 1022 0600 0515 Chemistry Renin Pending Aldosterone Pending Cortisol AM Sample Cancelled 11/22 11/22 11/21 0430 0425 1850 Chemistry Sodium (137 - 145 mmol/L) 138 Potassium (3.5 - 5.1 mmol/L) 3.5 Chloride (98 - 107 mmol/L) 96 L Carbon Dioxide (22 - 30 mmol/L) 27 Anion Gap (5 - 16) 15 BUN (9 - 20 mg/dL) 53 H Creatinine (0.7 - 1.2 mg/dL) 11.2 *H Estimated GFR (>60 ml/min) 5 L Glucose (65 - 99 mg/dL) 101 H Calcium (8.4 - 10.2 mg/dL) 8.1 L Phosphorus (2.5 - 4.5 mg/dL) 6.3 H Magnesium (1.6 - 2.3 mg/dL) 1.6 Total Bilirubin (0.2 - 1.3 mg/dL) 0.8 AST (17 - 59 U/L) 9 L ALT (21 - 72 U/L) 13 L Albumin (3.5 - 5.0 g/dL) 2.7 L Aldosterone Cancelled Cortisol AM Sample (4.46 - 22.7 ug/dL) 20.9 Hematology CBC w Diff NO MAN DIFF REQ WBC (4.8 - 10.8 /CUMM) 4.7 L RBC (4.70 - 6.10 /CUMM) 2.52 L Hgb (14.0 - 18.0 G/DL) 8.0 L Hct (42 - 52 %) 24.3 L MCV (80.0 - 94.0 FL) 96.3 H MCH (27.0 - 31.0 PG) 31.9 H MCHC (33.0 - 37.0 G/DL) 33.1 RDW (11.5 - 14.5 %) 19.3 H Plt Count (130 - 400 /CUMM) 118 L MPV (7.4 - 10.4 FL) 8.1 Gran % (42.2 - 75.2 %) 79.5 H Lymphocytes % (20.5 - 51.1 %) 12.4 L Monocytes % (1.7 - 9.3 %) 7.8 Eosinophils % (0 - 5 %) 0.1 Basophils % (0.0 - 2.0 %) 0.2 Absolute Granulocytes (1.4 - 6.5 /CUMM) 3.7 Absolute Lymphocytes (1.2 - 3.4 /CUMM) 0.6 L Absolute Monocytes (0.10 - 0.60 /CUMM) 0.4 Absolute Eosinophils (0.0 - 0.7 /CUMM) 0 Absolute Basophils (0.0 - 0.2 /CUMM) 0 Misc Hematology Test (%) Other Body Source Fluid WBC (0 - 5 /CUMM) 9 H Fld Total RBCs Counted (0 /CUMM) 4 H / 1759 Hematology CBC w Diff NO MAN DIFF REQ WBC (4.8 - 10.8 /CUMM) 3.5 L RBC (4.70 - 6.10 /CUMM) 2.81 L Hgb (14.0 - 18.0 G/DL) 9.0 L Hct (42 - 52 %) 26.8 L MCV (80.0 - 94.0 FL) 95.5 H MCH (27.0 - 31.0 PG) 32.0 H MCHC (33.0 - 37.0 G/DL) 33.5 RDW (11.5 - 14.5 %) 19.0 H Plt Count (130 - 400 /CUMM) 140 MPV (7.4 - 10.4 FL) 8.1 Gran % (42.2 - 75.2 %) 78.1 H Lymphocytes % (20.5 - 51.1 %) 11.6 L Monocytes % (1.7 - 9.3 %) 9.6 H Eosinophils % (0 - 5 %) 0.4 Basophils % (0.0 - 2.0 %) 0.3 Absolute Granulocytes (1.4 - 6.5 /CUMM) 2.7 Absolute Lymphocytes (1.2 - 3.4 /CUMM) 0.4 L Absolute Monocytes (0.10 - 0.60 /CUMM) 0.3 Absolute Eosinophils (0.0 - 0.7 /CUMM) 0 Absolute Basophils (0.0 - 0.2 /CUMM) 0
[2017-11-24] MEDS ORDERED: LEVAQUIN500 M1 PO (15:44)
[2017-11-24] MEDS ORDERED: MIDODRINE HCL2.5 M1 PO (15:44)
--- NOTE | 2017-11-24 15:47 | Patient Discharge Instructions ---
Discharge Instructions General Discharge Information You were seen/treated for: Sepsis secondary to pneumonia Anemia Hypotension You had these procedures: none Special Instructions: You were started on a new medication for your low blood pressure. Talk to your provider upon discharge about continuing the medication. Complete your antibiotic course. Follow up with your independent living specialist within 1 week of discharge Follow up with your PCP within 1-2 weeks of discharge Follow up with the [facility] within 1 week of discharge Diet Continue normal diet: Yes Activity Full Activity/No Limits: Yes Acute Coronary Syndrome Inclusion Criteria At DC or during hospital stay patient has or had the following: ACS DIAGNOSIS No Discharge Core Measures Meds if any: Prescribed or Continued at Discharge Meds if any: NOT Prescribed or Continued at Discharge Congestive Heart Failure Inclusion Criteria At DC or during hospital stay patient has or had the following: CHF DIAGNOSIS No Discharge Core Measures Meds if any: Prescribed or Continued at Discharge Meds if any: NOT Prescribed or Continued at Discharge Cerebrovascular accident Inclusion Criteria At DC or during hospital stay patient has or had the following: CVA/TIA Diagnosis No Discharge Core Measures Meds if any: Prescribed or Continued at Discharge Meds if any: NOT Prescribed or Continued at Discharge Venous thromboembolism Inclusion Criteria VTE Diagnosis No VTE Type NONE VTE Confirmed by (Test) NONE Discharge Core Measures - Per Current guidelines, there needs to be overlap - treatment for the first 5 days of Warfarin therapy. - If discharged on Warfarin prior to 5 days of - overlap therapy, the patient will need to be - assessed for post discharge needs including - *Post discharge parental anticoagulation - *Warfarin and/or parental anticoagulation education - *Follow up date to check INR post discharge At least 5 days overlap therapy as Inpatient No Meds if any: Prescribed or Continued at Discharge Note: Overlap Therapy is Warfarin and Anticoagulant Meds if any: NOT Prescribed or Continued at Discharge
[2017-11-24 20:08] VITALS: BP 78/54
[2017-11-24 20:29] VITALS: BP 82/62
[2017-11-24 21:46] VITALS: BP 92/60
[2017-11-25 00:05] VITALS: BP 100/74
--- NOTE | 2017-11-25 05:51 | PN- Housestaff ---
Subjective Follow-up For: Sepsis secondary to HCAP Anemia status post 1 unit packed red blood cells ESRD on peritoneal hemodialysis Hypotension Review of Systems Constitutional: Reports: no symptoms, see HPI. Objective Last 24 Hrs of Vital Signs/I&O Vital Signs Date Time Temp Pulse Resp B/P B/P Pulse O2 O2 Flow FiO2 Mean Ox Delivery Rate 11/25 06 98.1 93 20 102/64 91 Room Air 11/25 0005 99.0 100/74 11/24 2146 99.3 98 20 92/60 95 11/24 2028 82/62 11/24 2026 82/62 11/25 2007 78/54 11/24 1906 96 Room Air 11/24 1332 99.0 95 18 94/60 92 Room Air 11/24 1115 70/26 11/24 0822 96 Room Air Room Air Intake & Output 11/25 1600 11/25 0800 11/25 0000 Intake Total 120 360 Output Total 200 700 Balance -80 -340 Intake, Oral 120 360 Output, 200 700 Dialysate Patient 139 lb Weight Weight Bed scale Measurement Method Physical Exam General Appearance: Alert, Oriented X3, Cooperative, No Acute Distress Cardiovascular: Regular Rate, Normal S1, Normal S2, No Murmurs Lungs: Normal Air Movement Abdomen: Soft, No Tenderness, No Hepatospenomegaly Neurological: Normal Speech, Strength at 5/5 X4 Ext, Normal Tone, Sensation Intact Extremities: No Cyanosis, No Edema, Normal Pulses Current Medications: Current Medications Sig/Christie Start time Last Medication Dose Route Stop Time Status Admin Acetaminophen 650 MG Q6P PRN 11/200 DCD 11/21 PO 2354 Acetaminophen 1,000 MG Q6P PRN 11/20 2129 DCD IV Acyclovir 200 MG DAILY 11/21 899 DCD 11/25 PO 0949 Albuterol Sulfate 3 ML BID 11/21 1156 DCD 11/25 INH 0831 Azithromycin 500 MG 1600 11/22 1600 DC 11/23 Sodium Chloride 250 ML IV 1747 Ceftazidime 1,000 MG DAILY 11/21 899 DC 11/24 IV 0828 Docusate Sodium 100 MG DAILY 11/22 1113 DCD 11/24 PO 0827 Epoetin Elvin 10,000 UNITS QWED 11/22 899 DCD 11/22 SC 0854 Guaifenesin 600 MG Q12 11/20 2309 DCD 11/25 PO 0949 Ipratropium [place] 2.5 ML BID 11/21 1156 DCD 11/25 INH 0830 Levofloxacin 500 MG Q48H 11/24 1345 DCD 11/24 PO 1519 Magnesium Oxide 400 MG DAILY 11/21 0900 DCD 11/24 PO 0827 Metoprolol Tartrate 12.5 MG BID 11/23 2100 DCD 11/23 PO 2047 Midodrine 7.5 MG 0800,1200,1600 11/21 0230 DCD 11/25 PO 0758 Oxycodone HCl 10 MG Q6 PRN 11/21 0015 DCD PO Senna 187 MG AT BEDTIME 11/22 2100 DCD 11/24 PO 2024 Sevelamer Carbonate 3,200 MG WM 11/21 08 DCD 11/25 PO 0759 Sevelamer Carbonate 1,600 MG TID PRN 11/21 0015 DCD 11/24 PO 1341 Last 24 Hrs of Lab/Tyler Results Last 24 Hrs of Labs/Mics: Laboratory Tests 11/25/17 0610: Anion Gap 13, Estimated GFR 5 L, BUN/Creatinine Ratio 4.3 L, CBC w Diff NO MAN DIFF REQ, RBC 2.63 L, MCV 97.0 H, MCH 31.7 H, MCHC 32.7 L, RDW 19.4 H, MPV 8.1, Gran % 70.5, Lymphocytes % 17.2 L, Monocytes % 11.6 H, Eosinophils % 0.1, Basophils % 0.6, Absolute Granulocytes 3.3, Absolute Lymphocytes 0.8 L, Absolute Monocytes 0.5, Absolute Eosinophils 0, Absolute Basophils 0 Assessment/Plan Assessment: Mr. Grant is a 67-year-old male with past medical history of multiple myeloma currently on chemotherapy (last on November 15) and dexamethasone, end-stage renal disease on peritoneal dialysis, atrial fibrillation not on anticoagulation, hypertension, chronic back pain, osteoporosis initially admitted to the ICU for Sepsis 2/2 HCAP #Sepsis secondary to HCAP Continue Levaquin Appreciate ID recommendations #Anemia status post 1 unit packed red blood cells Monitor H&H #ESRD on peritoneal hemodialysis Continue Sevelamer Appreciate nephrology recommendations #Hypotension (baseline SBP 90s) Continue metoprolol with holding parameters Increase midodrine to 10 mg every 6 as per cardiology Serum renin and aldosterone pending, cortisol WNL Appreciate Endo recommendations #Chronic medical condition Appreciate cardio recommendations, patient not on anticoagulation for PAF due to anemia in the setting of MM and ESRD Diet: Regular ( and patient refused renal diet) DVT: sc Heparin Code: FULL Plan-patient will be going home with Levaquin, midodrine dose increased to 10 mg every 6. Problem List: 1. Hypotension Pain Ratin Pain Location: none Pain Goal: Remain pain free Pain Plan: tylenol Tomorrow's Labs & Rationales: none
[2017-11-25 06:02] VITALS: BP 102/64
[2017-11-25 08:57] LABS: ABSOLUTE BASOPHIL COUNT 0 /CUMM (0.0-0.2); ABSOLUTE EOSINOPHIL COUNT 0 /CUMM (0.0-0.7); ABSOLUTE GRANULOCYTE CT 3.3 /CUMM (1.4-6.5); ABSOLUTE LYMPH COUNT 0.8 /CUMM (1.2-3.4); ABSOLUTE MONOCYTE COUNT 0.5 /CUMM (0.10-0.60); BASOPHIL % 0.6 % (0.0-2.0); EOSINOPHIL % 0.1 % (0-5); GRANULOCYTE % 70.5 % (42.2-75.2); HEMATOCRIT 25.5 % (42-52); MEAN CORPUSCULAR HGB 31.7 PG (27.0-31.0); MEAN CORPUSCULAR HGB CONC 32.7 G/DL (33.0-37.0); MEAN PLATELET VOLUME 8.1 FL (7.4-10.4); PLATELET COUNT 136 /CUMM (130-400); RBC DISTRIBUTION WIDTH 19.4 % (11.5-14.5); RED BLOOD CELL CT 2.63 /CUMM (4.70-6.10); WHITE BLOOD CELL COUNT 4.7 /CUMM (4.8-10.8)
[2017-11-25] MEDS ORDERED: LEVAQUIN500 M1 PO ×2 (09:20→09:43)
[2017-11-25] MEDS ORDERED: MIDODRINE HCL2.5 M1 PO ×2 (09:43→10:08)
[2017-11-25] MEDS ORDERED: METOPROLOL TART25 M1 PO ×2 (09:43→10:08)
--- NOTE | 2017-11-25 10:47 | PN- Cardiology ---
Subjective Subjective: The patient is awake, alert Feels improved, without episodes of lightheadedness The events of the last 24 hours as well as telemetry were reviewed. Review of Systems: The review of systems is negative for chest pains, palpitations nor lightheadedness. The remainder of the 14 point review of systems is noncontributory with the exception of above. Objective Vital Signs and I&Os Vital Signs Date Time Temp Pulse Resp B/P B/P Pulse O2 O2 Flow FiO2 Mean Ox Delivery Rate 11/25 0950 92 74/50 11/25 0832 91 Room Air 11/25 0602 98.1 93 20 102/64 91 Room Air 11/25 0005 99.0 100/74 11/24 2146 99.3 98 20 92/60 95 11/24 2028 82/62 11/24 2026 82/62 11/25 2007 78/54 11/24 1906 96 Room Air 11/24 1332 99.0 95 18 94/60 92 Room Air 11/24 1115 70/26 Intake & Output 11/25 1600 11/25 0800 11/25 0000 11/24 1600 11/24 0800 11/24 0000 Intake Total 120 360 240 730 Output Total 200 700 -50 3000 2400 Balance -80 -340 290 -3000 -1670 Intake, IV 250 Intake, Oral 120 360 240 480 Number 1 0 Bowel Movements Output, 200 700 -50 3000 2400 Dialysate Output, Urine 0 Patient 139 lb 143 lb 139 lb Weight Weight Bed scale Bed scale Measurement Method Physical Exam: General: Nontoxic, no apparent distress. HEENT: Sclera and conjunctiva within normal limits, without xanthelasmas. Neck: Carotids 2+ without bruits. Respiratory: Scattered rhonchi, air movement is good, without accessory respiratory muscle use. Heart: Regular rate and rhythm, without murmurs, without JVD. Abdomen: Soft, nontender, no masses, normoactive bowel sounds. Extremities: Without clubbing, cyanosis, without edema. Neuro: Nonfocal exam, strength, 5 out of 5 Skin: Within normal limits without lesions. Psych: Mood and affect: Normal Current Medications: Current Medications Sig/Christie Start time Last Medication Dose Route Stop Time Status Admin Acetaminophen 650 MG Q6P PRN 11/20 2129 AC 11/21 PO 2354 Acetaminophen 1,000 MG Q6P PRN 05/07 2130 AC IV Acyclovir 200 MG DAILY 11/21 899 AC 11/25 PO 0949 Albuterol Sulfate 3 ML BID 11/21 1156 AC 11/25 INH 0831 Azithromycin 500 MG 1600 11/22 1600 DC 11/23 Sodium Chloride 250 ML IV 1747 Ceftazidime 1,000 MG DAILY 11/21 899 DC 11/24 IV 0828 Docusate Sodium 100 MG DAILY 11/22 1113 AC 11/24 PO 0827 Epoetin Elvin 10,000 UNITS QWED 11/22 899 AC 11/22 SC 0854 Guaifenesin 600 MG Q12 11/20 2309 AC 11/25 PO 0949 Ipratropium [place] 2.5 ML BID 11/21 1156 AC 11/25 INH 0830 Levofloxacin 500 MG Q48H 11/24 1345 AC 11/24 PO 1519 Magnesium Oxide 400 MG DAILY 11/21 899 AC 11/24 PO 0827 Metoprolol Tartrate 12.5 MG BID 11/23 2100 AC 11/23 PO 2047 Midodrine 7.5 MG 0800,1200,1600 11/21 0230 AC 11/25 PO 0758 Oxycodone HCl 10 MG Q6 PRN 11/21 0015 AC PO Senna 187 MG AT BEDTIME 11/22 2100 AC 11/24 PO 2024 Sevelamer Carbonate 3,200 MG WM 11/22 799 AC 11/25 PO 0759 Sevelamer Carbonate 1,600 MG TID PRN 11/21 0015 AC 11/24 PO 1341 Results Last 48 Hrs of Labs/Mics: Laboratory Tests 11/25/17 0610: Anion Gap 13, Estimated GFR 5 L, BUN/Creatinine Ratio 4.3 L, CBC w Diff NO MAN DIFF REQ, RBC 2.63 L, MCV 97.0 H, MCH 31.7 H, MCHC 32.7 L, RDW 19.4 H, MPV 8.1, Gran % 70.5, Lymphocytes % 17.2 L, Monocytes % 11.6 H, Eosinophils % 0.1, Basophils % 0.6, Absolute Granulocytes 3.3, Absolute Lymphocytes 0.8 L, Absolute Monocytes 0.5, Absolute Eosinophils 0, Absolute Basophils 0 11/24/17 0707: Anion Gap 13, Estimated GFR 5 L, BUN/Creatinine Ratio 4.9 L, Calcium 7.9 L, Phosphorus 6.6 H, Magnesium 1.7, CBC w Diff NO MAN DIFF REQ, RBC 2.68 L, MCV 96.5 H, MCH 31.6 H, MCHC 32.8 L, RDW 19.2 H, MPV 8.1, Gran % 80.2 H, Lymphocytes % 10.2 L, Monocytes % 9.0, Eosinophils % 0.2, Basophils % 0.4, Absolute Granulocytes 5.2, Absolute Lymphocytes 0.7 L, Absolute Monocytes 0.6, Absolute Eosinophils 0, Absolute Basophils 0 Assessment/Plan Assessment/Plan #1. Paroxysmal atrial fibrillation not on anticoagulation secondary to anemia #2. Cough most likely secondary to bronchitis versus pneumonia. #3. Elevated BNP secondary to end-stage renal disease. There is no evidence of acute CHF #4. Hypotension (chronic). This may be exacerbated by possible infection #5. Multiple myeloma with chronic anemia #6. Chronic back pain Atrial fibrillation: The patient has long-standing paroxysmal atrial fibrillation and is currently not anticoagulated secondary to anemia, in the setting of multiple myeloma and end-stage renal disease on peritoneal dialysis. Given his hypotension, rate control is difficult, and due to his renal dysfunction, agent such as digoxin are suboptimal. As he is not anticoagulated, use of an agent such as amiodarone would as well not be optimal. We will further discuss potential implantation of a watchman device to mitigate stroke risk; however, this will require anticoagulation for a short course following implantation. Hypotension: The patient has chronic hypotension and is currently asymptomatic for the same. He remains on Midrin as well as low-dose beta-alfred. His tachycardia is likely multifactorial including his underlying hypotension; however, as beta blockers have been initiated, we will continue the same. We will further titrate his regimen of midodrine as an outpatient. We may increase the dose to 10 mg p.o. every 6 hours while awake today. Continue telemetry? No
[2017-11-25 11:28] VITALS: BP 84/56
--- NOTE | 2017-11-25 12:24 | PN- Att Addend ---
Attending Addendum Attending Brief Note Patient seen and examined, overall doing well. Not requiring any oxygen. Denies any complaints. Patient has episodes of hypotension. He has been started on Midrin. He's asymptomatic and did take a walk with his without any dizziness. Patient is otherwise medically stable for discharge. Discussed with cardiology and it is okay to keep the patient on beta alfred secondary to his tachycardia. Patient will be discharged home on oral Levaquin, Midodrine and beta alfred. Please follow further cardiology recommendations. He would follow-up with his primary care doctor and cardiology as an outpatient. Medically stable for discharge home today. Discussed with patient and his at bedside.
--- NOTE | 2017-11-25 12:34 | PN- Infect Dx ---
Subjective Subjective: This is a 67-year-old man with a significant past medical history for multiple myeloma, hypertension, with borderline hypotension over the last several weeks, end-stage renal disease, maintained on CCPD. Admitted on November 20 after presenting to the emergency room with a persistent cough, increasing weakness and lethargy with poor p.o. intake and a 10 pound weight loss. On admission he was afebrile, with blood pressure 90/60. A white blood cell count of 5000. The patient feels well today is afebrile with a normal white blood cell count, does not appear confused and is ready to be discharged. Review of Systems Constitutional: Reports: no symptoms. EENTM: Reports: no symptoms. Cardiovascular: Reports: no symptoms. Respiratory: Reports: no symptoms. Gastrointestinal: Reports: no symptoms. Genitourinary: Reports: no symptoms. Musculoskeletal: Reports: no symptoms. Skin: Reports: no symptoms. Neurological/Psychological: Reports: no symptoms. Hematologic/Endocrine: Reports: no symptoms. Immunologic/Allergic: Reports: no symptoms. Objective Last 24 Hrs of Vital Signs/I&O Vital Signs Date Time Temp Pulse Resp B/P B/P Pulse O2 O2 Flow FiO2 Mean Ox Delivery Rate 11/25 1128 84/56 11/25 0950 92 74/50 11/25 0832 91 Room Air 11/25 0602 98.1 93 20 102/64 91 Room Air 11/25 0005 99.0 100/74 11/24 2146 99.3 98 20 92/60 95 11/24 2029 82/62 11/24 2027 82/62 11/24 2008 78/54 11/24 1906 96 Room Air 11/24 1332 99.0 95 18 94/60 92 Room Air Intake & Output 11/25 1600 11/25 0800 11/25 0000 Intake Total 400 120 360 Output Total 200 700 Balance 400 -80 -340 Intake, Oral 400 120 360 Number 1 Bowel Movements Output, 200 700 Dialysate Output, Urine Patient 139 lb Weight Weight Bed scale Measurement Method Physical Exam General Appearance: well developed/nourished, no apparent distress, alert, awake Head: atraumatic Neck: supple, full range of motion Cardiovascular: regular rate/rhythm Respiratory: normal breath sounds, chest non-tender, no respiratory distress Abdomen: normal bowel sounds, soft, non-tender Neurologic/Psychiatric: awake, alert, oriented x 3 Results Last 24 Hours of Lab Results: Laboratory Tests 11/25 0610 Chemistry Sodium (137 - 145 mmol/L) 139 Potassium (3.5 - 5.1 mmol/L) 4.0 Chloride (98 - 107 mmol/L) 95 L Carbon Dioxide (22 - 30 mmol/L) 30 Anion Gap (5 - 16) 13 BUN (9 - 20 mg/dL) 45 H Creatinine (0.7 - 1.2 mg/dL) 10.4 *H Estimated GFR (>60 ml/min) 5 L BUN/Creatinine Ratio (7 - 25 %) 4.3 L Hematology CBC w Diff NO MAN DIFF REQ WBC (4.8 - 10.8 /CUMM) 4.7 L RBC (4.70 - 6.10 /CUMM) 2.63 L Hgb (14.0 - 18.0 G/DL) 8.3 L Hct (42 - 52 %) 25.5 L MCV (80.0 - 94.0 FL) 97.0 H MCH (27.0 - 31.0 PG) 31.7 H MCHC (33.0 - 37.0 G/DL) 32.7 L RDW (11.5 - 14.5 %) 19.4 H Plt Count (130 - 400 /CUMM) 136 MPV (7.4 - 10.4 FL) 8.1 Gran % (42.2 - 75.2 %) 70.5 Lymphocytes % (20.5 - 51.1 %) 17.2 L Monocytes % (1.7 - 9.3 %) 11.6 H Eosinophils % (0 - 5 %) 0.1 Basophils % (0.0 - 2.0 %) 0.6 Absolute Granulocytes (1.4 - 6.5 /CUMM) 3.3 Absolute Lymphocytes (1.2 - 3.4 /CUMM) 0.8 L Absolute Monocytes (0.10 - 0.60 /CUMM) 0.5 Absolute Eosinophils (0.0 - 0.7 /CUMM) 0 Absolute Basophils (0.0 - 0.2 /CUMM) 0 Last 24 Hours of [place] Results: Radiology and microbiology reviewed Assessment/Plan ID Impression: 67-year-old white male with multiple medical problems who continues to improve, remains afebrile with a normal white blood cell count. His hypotension is of concern and is most likely medication related. Suggestion: 1. Cardiology consultation noted 2. Levaquin 500 mg p.o. every 48 hours to complete a 10 day course of treatment Call with any questions [phone].
--- NOTE | 2017-11-25 13:05 | PN- Pulmonary ---
Subjective HPI/Critical Care Issues: Doing well seen early this morning patient sleeping being discharged today stable Objective Current Medications: Current Medications Sig/Christie Start time Last Medication Dose Route Stop Time Status Admin Acetaminophen 650 MG Q6P PRN 11/20 2130 DCD 05 PO 2354 Acetaminophen 1,000 MG Q6P PRN 11/20 2130 DCD IV Acyclovir 200 MG DAILY 11/21 0900 DCD 11/25 PO 0949 Albuterol Sulfate 3 ML BID 11/21 1156 DCD 11/25 INH 0831 Azithromycin 500 MG 1600 11/22 1600 DC 05 Sodium Chloride 250 ML IV 1747 Ceftazidime 1,000 MG DAILY 11/21 09 DC 11/24 IV 0828 Docusate Sodium 100 MG DAILY 11/22 1113 DCD 11/24 PO 0827 Epoetin Elvin 10,000 UNITS QWED 11/22 0900 DCD 11/22 SC 0854 Guaifenesin 600 MG Q12 11/20 2309 DCD 11/25 PO 0949 Ipratropium [place] 2.5 ML BID 11/21 1156 DCD 11/25 INH 0830 Levofloxacin 500 MG Q48H 11/24 1345 DCD 11/24 PO 1519 Magnesium Oxide 400 MG DAILY 11/21 0900 DCD 11/24 PO 0827 Metoprolol Tartrate 12.5 MG BID 11/23 2100 DCD 11/23 PO 2047 Midodrine 7.5 MG 0800,1200,1600 05 0230 DCD 11/25 PO 0758 Oxycodone HCl 10 MG Q6 PRN 11/21 0015 DCD PO Senna 187 MG AT BEDTIME 11/22 2100 DCD 11/24 PO 2024 Sevelamer Carbonate 3,200 MG WM 11/21 0800 DCD 05 PO 0759 Sevelamer Carbonate 1,600 MG TID PRN 11/21 0015 DCD 11/24 PO 1341 Vital Signs & I&O Last 24 Hrs of Vitals and I&O: Vital Signs Date Time Temp Pulse Resp B/P B/P Pulse O2 O2 Flow FiO2 Mean Ox Delivery Rate 11/25 1128 84/56 11/25 0950 92 74/50 / 0832 91 Room Air 11/25 0602 98.1 93 20 102/64 91 Room Air 11/25 0005 99.0 100/74 05 2146 99.3 98 20 92/60 95 11/24 2028 82/62 11/24 2026 82/62 11/25 2007 78/54 11/24 1906 96 Room Air 11/24 1332 99.0 95 18 94/60 92 Room Air Intake & Output 11/25 1600 11/25 0800 11/25 0000 Intake Total 400 120 360 Output Total 200 700 Balance 400 -80 -340 Intake, Oral 400 120 360 Number 1 Bowel Movements Output, 200 700 Dialysate Output, Urine Patient 139 lb Weight Weight Bed scale Measurement Method Impression/Plan Impression/Plan Impression/Plan: HEENT exam is negative. Neck is supple with no adenopathy. Lungs diffuse bilateral rhonchi. Heart regular rhythm with a 2/6 systolic ejection murmur. Abdomen is soft, nontender with positive bowel sounds; Tenckhoff catheter in place with no inflammation at the site. Extremities no cyanosis, clubbing or edema; reducible right femoral hernia, with no tenderness on palpation. Neuro is without focality. dried blood at the urethral meatus. CT scan 1. There is increasing consolidation of the left lower lobe, now affecting nearly the entire lobe. Air bronchograms are present. Similar consolidation dependently in the right lower lobe. These findings could represent atelectasis or pneumonia. 2. Resolution of the anterior right upper lobe groundglass opacity. 3. Cholelithiasis. Increase in small volume ascites. Nephrolithiasis. This is a 67-year-old man with a history of multiple myeloma, treated with chemotherapy, including Decadron, Cybor d adn aranasep every other week, most recently 5 days prior to admission, with stable globulins and MRIs, end-stage renal disease, maintained on CCPD, hospitalized 1 month prior to admission with pneumococcal sepsis, Now admittedwith a persistent cough, increasing weakness and lethargy with poor p.o. intake and weight loss, found to be afebrile with hypotension, a normal white blood cell count and a left lower lobe density on chest x-ray. ISSUES * Resolving Sepsis with prob pna HCAP with LLL PNA ( recent strep pneumo sepsis) * Advanced multiple myeloma with ongoing chemotherapy, seems to be relatively stable, hence immunosuppressed * Severe osteoporosis with myeloma involvement of the spine with chronic neck pain * Resolved Hypotension from sepsis * Chronic hypotension due to end-stage renal disease and autonomic dysfunction on Midodrin * Chronic pain syndrome on oxycodone due to severe spine involvement * End-stage renal disease on peritoneal dialysis * Elevated BNP secondary to end-stage renal disease no clinical evidence suggestive of acute coronary syndrome * Chronic paroxysmal atrial fibrillation not on anticoagulation due to recent anemia PLAN/ Stable, finished a course of antibiotics Needs a repeat chest x-ray in the next few weeks Patient advised to continue aggressive pulmonary toilet and be more up in the chair.
== END 2017-11-25 11:50 | disposition home health service (06) | DRG 193 ==
LOC: ERH 13:54 → ERHI 20:06 → CRI 20:06 → 2NA 20:06 → ENRESERV 21:19 → CANRESERV 21:19 → ENTRNSPT 22:35 → EDTRNSPTSTS 22:40 → EDTRNSPT 22:40 → EDBEDREQ 22:48 → EDBEDREQTM 22:48 → ERHI 22:51 → ENRESERV 22:52 → CMPTRNSPT 22:55 → CRI 23:47 → ENTRNSPT 11-23 15:00 → EDTRNSPT 11-23 15:08 → EDTRNSPTSTS 11-23 15:08 → 2NA 11-23 15:22 → CMPTRNSPT 11-23 15:27 → 2NA 11-24 08:16 → ENPENDDIS 11-25 10:20 → ENTRNSPT 11-25 11:42 → 2NA 11-25 11:50 → CMPTRNSPT 11-25 12:00
PROVIDERS: Internal Medicine Hematology & Oncology; Student in an Organized Health Care Education/Training Program
PROC: 3E1M39Z Irrigation of Peritoneal Cavity using Dialysate, Percutaneous Approach (ICD-10-PCS; principal; 2017-11-21)
DX: J18.9 Pneumonia, unspecified organism (principal); N18.6 End stage renal disease; C90.00 Multiple myeloma not having achieved remission; I95.9 Hypotension, unspecified; I12.0 Hypertensive chronic kidney disease with stage 5 chronic kidney disease or end stage renal disease; I48.0 Paroxysmal atrial fibrillation; R13.10 Dysphagia, unspecified; M54.9 Dorsalgia, unspecified; M81.0 Age-related osteoporosis without current pathological fracture; K40.90 Unilateral inguinal hernia, without obstruction or gangrene, not specified as recurrent; K80.20 Calculus of gallbladder without cholecystitis without obstruction; Z99.2 Dependence on renal dialysis; R00.0 Tachycardia, unspecified; K59.00 Constipation, unspecified; G89.4 Chronic pain syndrome; I49.3 Ventricular premature depolarization; Z88.5 Allergy status to narcotic agent; Z90.49 Acquired absence of other specified parts of digestive tract
CPT/HCPCS: 2NAP; 87075; CCU; 36415; 36592; 71045; 82436; 86920; 87040; 87070; 87804; 87804-59; 93005; 93010; J0131; J0456; J0696; J0713; J7040; P9016